=== PATIENT | female | born 1955 | race Caucasian/White ===

== ENCOUNTER → 2017-11-13 14:49 | Outpatient (REF) | payer MEDICARE, SELFPAY ==
[2017-11-13 17:43] LABS: Basophils # 0.1 K/mm3 (0-0.2); Basophils % 0.8 % (0.1-2.0); Eosinophils # 0.4 K/mm3 (0.0-0.4); Eosinophils % 4.3 % (0.1-12.0); Hematocrit 47.8 % (37.0-47.0); Hemoglobin 15.2 g/dL (12.2-16.2); Lymphocytes # 3.5 K/mm3 (0.7-4.5); Lymphocytes % 34.2 K/mm3 (10-50); Mean Corpuscular HGB Conc 31.9 g/dL (31.8-35.4); Mean Corpuscular Volume 87.8 fl (81-99); Mean Platelet Volume 11.1 fl (7.4-10.4); Monocytes # 0.6 K/mm3 (0.1-1.0); Monocytes % 5.4 % (1.7-9.3); Neutrophils # 5.6 K/mm3 (1.8-7.8); Neutrophils % 55.3 % (37.0-80.0); Platelet Count 207 K/mm3 (142-424); Red Blood Count 5.44 M/mm3 (4.20-5.40); Red Cell Distribution Width 13.6 % (11.5-17.5); White Blood Count 10.2 K/mm3 (4.8-10.8)
[2017-11-13 18:06] LABS: Alanine Aminotransferase 27 U/L (12-78); Albumin Level 4.4 gm/dL (3.4-5.0); Albumin/Globulin Ratio 1.4 (1.1-1.8); Alkaline Phosphatase 77 U/L (46-116); Anion Gap 12.9 mEq/L (5-15); Aspartate Amino Transferase 22 U/L (15-37); Bilirubin,Total 0.4 mg/dL (0.2-1.0); Blood Urea Nitrogen 15 mg/dL (7-18); Calcium 9.5 mg/dL (8.5-10.1); Carbon Dioxide 29 mmol/L (21.0-32.0); Chloride 103 mmol/L (98-107); Creatinine,Serum 0.79 mg/dL (0.55-1.02); Estimated Glomerular Filt Rate 74 ml/min (>60); GFR (African American) 89 ML/MIN (>60); Globulin 3.1 gm/dl (1.3-3.2); Glucose 78 mg/dL (74-106); Potassium 4.9 mmoL/L (3.5-5.1); Sodium 140 mmol/L (136-145); Total Protein,Serum 7.5 gm/dL (6.4-8.2)
[2017-11-13 19:27] LABS: Amphetamine/Metha Screen,Urine Negative ng/mL (<1000); Barbiturates Screen,Urine Negative ng/mL (<200); Benzodiazepines Screen,Urine Negative ng/mL (200); Cannabinoid Screen,Urine Negative ng/mL (<50); Cocaine Screen,Urine Negative ng/g (<300); Methadone Screen,Urine Negative ng/mL (<300); Opiate Screen,Urine Positive ng/mL (<300); Phencyclidine Screen,Urine Negative ng/mL (<25)
[2017-11-15 15:08] LABS: Hep A Ab, IgM Negative (Negative); Hepatitis B Core Antibody IgM Negative (Negative); Hepatitis B Surface Antigen Negative (Negative)
[2017-11-15 18:29] LABS: Hepatitis C Antibody 0.1 s/co ratio (0.0-0.9)
== END ==
LOC: LAB 14:49
PROVIDERS: Visit Provider Emergency Medicine
DX: Z79.899 Other long term (current) drug therapy (principal); M54.9 Dorsalgia, unspecified; R53.83 Other fatigue
CPT/HCPCS: 80053; 80074; 80305; 85025

== ENCOUNTER → 2017-12-15 15:10 | Outpatient (REF) | payer MEDICARE, SELFPAY ==
[2017-12-15 21:07] LABS: Amphetamine/Metha Screen,Urine Negative ng/mL (<1000); Barbiturates Screen,Urine Negative ng/mL (<200); Benzodiazepines Screen,Urine Negative ng/mL (200); Cannabinoid Screen,Urine Negative ng/mL (<50); Cocaine Screen,Urine Negative ng/g (<300); Methadone Screen,Urine Negative ng/mL (<300); Opiate Screen,Urine Positive ng/mL (<300); Phencyclidine Screen,Urine Negative ng/mL (<25)
== END ==
LOC: LAB 15:10
PROVIDERS: Visit Provider Emergency Medicine
DX: Z79.899 Other long term (current) drug therapy (principal)
CPT/HCPCS: 80305

== ENCOUNTER → 2018-01-13 15:38 | Outpatient (CLI) | payer MEDICARE, SELFPAY ==
[2018-01-13 19:55] LABS: Amphetamine/Metha Screen,Urine Negative ng/mL (<1000); Barbiturates Screen,Urine Negative ng/mL (<200); Benzodiazepines Screen,Urine Negative ng/mL (200); Cannabinoid Screen,Urine Negative ng/mL (<50); Cocaine Screen,Urine Negative ng/g (<300); Methadone Screen,Urine Negative ng/mL (<300); Opiate Screen,Urine Positive ng/mL (<300); Phencyclidine Screen,Urine Negative ng/mL (<25)
== END ==
PROVIDERS: Visit Provider Emergency Medicine
DX: Z79.899 Other long term (current) drug therapy (principal)
CPT/HCPCS: 80305

== ENCOUNTER → 2018-02-10 15:28 | Outpatient (REF) | payer MEDICARE, SELFPAY ==
[2018-02-10 20:09] LABS: Amphetamine/Metha Screen,Urine Negative ng/mL (<1000); Barbiturates Screen,Urine Negative ng/mL (<200); Benzodiazepines Screen,Urine Negative ng/mL (200); Cannabinoid Screen,Urine Negative ng/mL (<50); Cocaine Screen,Urine Negative ng/g (<300); Methadone Screen,Urine Negative ng/mL (<300); Opiate Screen,Urine Positive ng/mL (<300); Phencyclidine Screen,Urine Negative ng/mL (<25)
== END ==
LOC: LAB 15:28
PROVIDERS: Visit Provider Emergency Medicine
DX: Z79.899 Other long term (current) drug therapy (principal)
CPT/HCPCS: 80305

== ENCOUNTER → 2018-03-17 13:50 | Outpatient (REF) | payer MEDICARE, MEDICAID, SELFPAY ==
[2018-03-17 14:54] LABS: Amphetamine/Metha Screen,Urine Negative ng/mL (<1000); Barbiturates Screen,Urine Negative ng/mL (<200); Benzodiazepines Screen,Urine Negative ng/mL (200); Cannabinoid Screen,Urine Negative ng/mL (<50); Cocaine Screen,Urine Negative ng/g (<300); Methadone Screen,Urine Negative ng/mL (<300); Opiate Screen,Urine Positive ng/mL (<300); Phencyclidine Screen,Urine Negative ng/mL (<25)
== END ==
LOC: LAB 13:50
PROVIDERS: Visit Provider Emergency Medicine
DX: Z79.899 Other long term (current) drug therapy (principal)
CPT/HCPCS: 80305

== ENCOUNTER → 2018-04-14 13:32 | Outpatient (REF) | payer MEDICARE, MEDICAID, SELFPAY ==
[2018-04-14 16:22] LABS: Amphetamine/Metha Screen,Urine Negative ng/mL (<1000); Barbiturates Screen,Urine Negative ng/mL (<200); Benzodiazepines Screen,Urine Negative ng/mL (200); Cannabinoid Screen,Urine Negative ng/mL (<50); Cocaine Screen,Urine Negative ng/g (<300); Methadone Screen,Urine Negative ng/mL (<300); Opiate Screen,Urine Positive ng/mL (<300); Phencyclidine Screen,Urine Negative ng/mL (<25)
== END ==
LOC: LAB 13:32
PROVIDERS: Visit Provider Emergency Medicine
DX: Z79.899 Other long term (current) drug therapy (principal)
CPT/HCPCS: 80305

== ENCOUNTER → 2018-05-14 08:25 | Outpatient (REF) | payer MEDICARE, MEDICAID, SELFPAY ==
[2018-05-14 14:15] LABS: Amphetamine/Metha Screen,Urine Negative ng/mL (<1000); Barbiturates Screen,Urine Negative ng/mL (<200); Benzodiazepines Screen,Urine Negative ng/mL (<200); Cannabinoid Screen,Urine Negative ng/mL (<50); Cocaine Screen,Urine Negative ng/mL (<300); Methadone Screen,Urine Negative ng/mL (<300); Opiate Screen,Urine Positive ng/mL (<300); Phencyclidine Screen,Urine Negative ng/mL (<25)
== END ==
LOC: LAB 08:25
PROVIDERS: Visit Provider Emergency Medicine
DX: Z79.899 Other long term (current) drug therapy (principal)
CPT/HCPCS: 80305

== ENCOUNTER → 2018-06-16 13:05 | Outpatient (REF) | payer MEDICARE, MEDICAID, SELFPAY ==
[2018-06-16 18:50] LABS: Basophils # 0.1 K/mm3 (0-0.2); Basophils % 0.6 % (0.1-2.0); Eosinophils # 0.3 K/mm3 (0.0-0.4); Eosinophils % 3.8 % (0.1-12.0); Hematocrit 49.6 % (37.0-47.0); Lymphocytes # 2.1 K/mm3 (0.7-4.5); Lymphocytes % 24.4 K/mm3 (10-50); Mean Corpuscular HGB Conc 32.3 g/dL (31.8-35.4); Mean Corpuscular Hemoglobin 28.8 pg (27.0-31.2); Mean Corpuscular Volume 89.3 fl (81-99); Mean Platelet Volume 11.4 fl (7.4-10.4); Monocytes # 0.5 K/mm3 (0.1-1.0); Monocytes % 5.3 % (1.7-9.3); Neutrophils # 5.8 K/mm3 (1.8-7.8); Neutrophils % 65.9 % (37.0-80.0); Platelet Count 181 K/mm3 (142-424); Red Blood Count 5.55 M/mm3 (4.20-5.40); Red Cell Distribution Width 14.1 % (11.5-17.5); White Blood Count 8.8 K/mm3 (4.8-10.8)
[2018-06-16 19:06] LABS: Alanine Aminotransferase 181 U/L (12-78); Albumin Level 3.6 gm/dL (3.4-5.0); Alkaline Phosphatase 135 U/L (46-116); Anion Gap 12.2 mEq/L (5-15); Aspartate Amino Transferase 166 U/L (15-37); Bilirubin,Total 0.8 mg/dL (0.2-1.0); Blood Urea Nitrogen 9 mg/dL (7-18); Calcium 9.5 mg/dL (8.5-10.1); Carbon Dioxide 31 mmol/L (21.0-32.0); Chloride 105 mmol/L (98-107); Chol/HDL Ratio 4.7 (1-3.5); Cholesterol 182 mg/dL (140-200); Creatinine,Serum 0.75 mg/dL (0.55-1.02); Estimated Glomerular Filt Rate 78 ml/min (>60); Free T4 (Free Thyroxine) 1.48 ng/dl (0.76-1.46); GFR (African American) 94 ML/MIN (>60); Globulin 3.5 gm/dl (1.3-3.2); Glucose 105 mg/dL (74-106); HDL Cholesterol 39 mg/dL (29-89); LDL Cholesterol 111 mg/dL (0-130); Potassium 4.2 mmoL/L (3.5-5.1); Sodium 144 mmol/L (136-145); Thyroid Stimulating Hormone 2.12 uIU/ml (0.358-3.740); Total Protein,Serum 7.1 gm/dL (6.4-8.2); Triglycerides 161 mg/dL (30-200); VLDL Cholesterol 32 mg/dL (0-40)
[2018-06-16 19:07] LABS: Amphetamine/Metha Screen,Urine Negative ng/mL (<1000); Barbiturates Screen,Urine Negative ng/mL (<200); Benzodiazepines Screen,Urine Negative ng/mL (<200); Cannabinoid Screen,Urine Negative ng/mL (<50); Cocaine Screen,Urine Negative ng/mL (<300); Methadone Screen,Urine Negative ng/mL (<300); Opiate Screen,Urine Positive ng/mL (<300); Phencyclidine Screen,Urine Negative ng/mL (<25)
[2018-06-16 23:20] LABS: Erythrocyte Sedimentation Rate 5 mm/hr (0-30)
== END ==
LOC: LAB 13:05
PROVIDERS: Visit Provider Emergency Medicine
DX: Z79.899 Other long term (current) drug therapy (principal); R06.00 Dyspnea, unspecified; M54.9 Dorsalgia, unspecified
CPT/HCPCS: 80053; 80061; 80305; 84439; 84443; 85025; 85651

== ENCOUNTER → 2018-06-30 15:04 | Outpatient (CLI) | payer MEDICARE, MEDICAID, SELFPAY ==
[2018-06-30 19:23] LABS: Alanine Aminotransferase 162 U/L (12-78); Albumin Level 3.3 gm/dL (3.4-5.0); Alkaline Phosphatase 146 U/L (46-116); Aspartate Amino Transferase 161 U/L (15-37); Bilirubin,Direct 0.2 mg/dL (0.0-0.2); Bilirubin,Indirect 0.1 mg/dL (0.0-0.9); Bilirubin,Total 0.3 mg/dL (0.2-1.0); Total Protein,Serum 6.7 gm/dL (6.4-8.2)
[2018-07-01 20:07] LABS: Amphetamine/Metha Screen,Urine Negative ng/mL (<1000); Barbiturates Screen,Urine Negative ng/mL (<200); Benzodiazepines Screen,Urine Negative ng/mL (<200); Cannabinoid Screen,Urine Negative ng/mL (<50); Cocaine Screen,Urine Negative ng/mL (<300); Methadone Screen,Urine Negative ng/mL (<300); Opiate Screen,Urine Positive ng/mL (<300); Phencyclidine Screen,Urine Negative ng/mL (<25)
[2018-07-02 12:18] LABS: Hep A Ab, IgM Negative (Negative); Hepatitis B Core Antibody IgM Negative (Negative); Hepatitis B Surface Antigen Negative (Negative)
[2018-07-05 05:19] LABS: Hepatitis C Antibody >11.0 s/co ratio (0.0-0.9)
== END ==
PROVIDERS: Visit Provider Emergency Medicine
DX: R74.8 Abnormal levels of other serum enzymes (principal); R53.83 Other fatigue; Z79.899 Other long term (current) drug therapy
CPT/HCPCS: 80074; 80076; 80305

== ENCOUNTER → 2018-07-01 12:59 | Outpatient (CLI) | payer MEDICARE, MEDICAID, SELFPAY ==
--- NOTE | 2018-07-01 13:03 | MR_ITS ---
MR lumbar spine wo con, MR 3-d myelogram/MRCP HISTORY: Low back pain X years. Bilateral leg pain, numbness and tingling. ITS.REASON: back pain ORDERING PHYSICIAN: Ronald Gr MD PATIENT AGE: 62 years Comparison: MRI 01/18/16 TECHNIQUE: Standard multiplanar multiecho sequences are performed without contrast. 3-D MIP and myelographic images are also rendered and reviewed FINDINGS: There is normal alignment. The spinal cord ends at the L1-L2 level. T11-T12: Facet hypertrophic changes present on the right causing right lateral recess narrowing which is abutting but not impinging upon the cord on the right. T12-L1: Unremarkable. L1-L2: Unremarkable. L2-L3: Mild facet and ligamentum hypertrophy with mild lateral recess narrowing. L3-L4: Mild facet and ligamentum hypertrophy. Minimal foraminal and lateral disc bulge as before with mild right foraminal narrowing L4-L5: Bulging disc with mild facet and ligamentum hypertrophy with mild bilateral foraminal narrowing. There is mild narrowing of the canal L5-S1: Degenerative disc disease with bulging disc with a small broad-based central left paracentral disc protrusion which is abutting the left S1 nerve root. There is moderate right foraminal narrowing and moderate to severe left foraminal narrowing. There is borderline canal stenosis at 11 mm. An annular fissure is present in the left paracentral region of the disc. There is a small right renal cyst 14 mm. IMPRESSION: 1. Mild lumbar spondylosis as detailed above. Please see above for detailed description at each level. 2. Degenerative disc disease at L5-S1 with bulging disc with a small broad-based central left paracentral disc protrusion which is abutting the left S1 nerve root. There is moderate right foraminal narrowing and moderate to severe left foraminal narrowing. There is borderline canal stenosis at 11 mm. An annular fissure is present in the left paracentral region of the disc 3. Overall no significant change compared to the previous exam
== END ==
PROVIDERS: PCP Emergency Medicine; Visit Provider Emergency Medicine
DX: M54.9 Dorsalgia, unspecified (principal); M54.5 Low back pain
CPT/HCPCS: 72148; 76376

== ENCOUNTER → 2018-07-13 13:58 | Outpatient (REF) | payer MEDICARE, MEDICAID, SELFPAY ==
[2018-07-13 19:21] LABS: Amphetamine/Metha Screen,Urine Negative ng/mL (<1000); Barbiturates Screen,Urine Negative ng/mL (<200); Benzodiazepines Screen,Urine Negative ng/mL (<200); Cannabinoid Screen,Urine Negative ng/mL (<50); Cocaine Screen,Urine Negative ng/mL (<300); Methadone Screen,Urine Negative ng/mL (<300); Opiate Screen,Urine Positive ng/mL (<300); Phencyclidine Screen,Urine Negative ng/mL (<25)
[2018-07-16 12:34] LABS: HIV Screen 4th Generation wRfx Non Reactive (Non Reactive)
[2018-07-19 21:09] LABS: HCV Genotype Charge YES; Hepatitis C Genotype 1a (.)
== END ==
LOC: LAB 13:58
PROVIDERS: Visit Provider Emergency Medicine
DX: Z79.899 Other long term (current) drug therapy (principal); R76.8 Other specified abnormal immunological findings in serum; Z20.5 Contact with and (suspected) exposure to viral hepatitis; Z11.4 Encounter for screening for human immunodeficiency virus [HIV]
CPT/HCPCS: 80305; 86703; 87522; 87902; G0432

== ENCOUNTER → 2018-07-14 10:33 | Outpatient (CLI) | payer MEDICARE, MEDICAID, SELFPAY | PROVIDERS: Visit Provider Emergency Medicine | DX: Z20.5 Contact with and (suspected) exposure to viral hepatitis (principal) ==

== ENCOUNTER → 2018-08-02 15:10 | Outpatient (REF) | payer MEDICARE, MEDICAID, SELFPAY ==
[2018-08-02 19:31] LABS: Amphetamine/Metha Screen,Urine Negative ng/mL (<1000); Barbiturates Screen,Urine Negative ng/mL (<200); Benzodiazepines Screen,Urine Negative ng/mL (<200); Cannabinoid Screen,Urine Negative ng/mL (<50); Cocaine Screen,Urine Negative ng/mL (<300); Methadone Screen,Urine Negative ng/mL (<300); Opiate Screen,Urine Positive ng/mL (<300); Phencyclidine Screen,Urine Negative ng/mL (<25)
== END ==
LOC: LAB 15:10
PROVIDERS: Visit Provider Emergency Medicine
DX: Z79.899 Other long term (current) drug therapy (principal)
CPT/HCPCS: 80305

== ENCOUNTER → 2018-08-06 14:45 | Outpatient (CLI) | payer MEDICARE, MEDICAID, SELFPAY ==
[2018-08-06 15:17] LABS: INR 0.97 (0.9-1.1)
[2018-08-06 16:33] LABS: Basophils # 0.1 K/mm3 (0-0.2); Basophils % 0.9 % (0.1-2.0); Eosinophils # 0.4 K/mm3 (0.0-0.4); Eosinophils % 4.3 % (0.1-12.0); Hematocrit 48.3 % (37.0-47.0); Hemoglobin 15.2 g/dL (12.2-16.2); Lymphocytes # 2.5 K/mm3 (0.7-4.5); Mean Corpuscular HGB Conc 31.5 g/dL (31.8-35.4); Mean Corpuscular Hemoglobin 28.7 pg (27.0-31.2); Mean Platelet Volume 10.3 fl (7.4-10.4); Monocytes # 0.5 K/mm3 (0.1-1.0); Monocytes % 5.9 % (1.7-9.3); Neutrophils # 4.9 K/mm3 (1.8-7.8); Platelet Count 199 K/mm3 (142-424); Red Blood Count 5.31 M/mm3 (4.20-5.40); Red Cell Distribution Width 15.2 % (11.5-17.5); White Blood Count 8.3 K/mm3 (4.8-10.8)
== END ==
PROVIDERS: PCP Emergency Medicine; Visit Provider Emergency Medicine
DX: B19.20 Unspecified viral hepatitis C without hepatic coma (principal)
CPT/HCPCS: 36415; 85025; 85610

== ENCOUNTER → 2018-08-31 08:37 | Outpatient (CLI) | payer MEDICARE, MEDICAID, SELFPAY ==
[2018-09-01 12:56] LABS: Amphetamine/Metha Screen,Urine Negative ng/mL (<1000); Barbiturates Screen,Urine Negative ng/mL (<200); Benzodiazepines Screen,Urine Negative ng/mL (<200); Cannabinoid Screen,Urine Negative ng/mL (<50); Cocaine Screen,Urine Negative ng/mL (<300); Methadone Screen,Urine Negative ng/mL (<300); Opiate Screen,Urine Positive ng/mL (<300); Phencyclidine Screen,Urine Negative ng/mL (<25)
== END ==
PROVIDERS: Visit Provider Emergency Medicine
DX: Z79.899 Other long term (current) drug therapy (principal)
CPT/HCPCS: 80305

== ENCOUNTER → 2018-10-05 17:48 | Outpatient (CLI) | payer MEDICARE, MEDICAID, SELFPAY ==
[2018-10-05 21:46] LABS: Amphetamine/Metha Screen,Urine Negative ng/mL (<1000); Barbiturates Screen,Urine Negative ng/mL (<200); Benzodiazepines Screen,Urine Negative ng/mL (<200); Cannabinoid Screen,Urine Negative ng/mL (<50); Cocaine Screen,Urine Negative ng/mL (<300); Methadone Screen,Urine Negative ng/mL (<300); Opiate Screen,Urine Positive ng/mL (<300); Phencyclidine Screen,Urine Negative ng/mL (<25)
[2018-10-12 09:08] LABS: Alprazolam Negative (Cutoff=100); Benzodiazepines Negative ng/mL (Cutoff=100); Clonazepam Negative (Cutoff=100); Flurazepam Negative (Cutoff=100); Lorazepam Negative (Cutoff=100); Midazolam Negative (Cutoff=100); Temazepam Negative (Cutoff=100); Triazolam Negative (Cutoff=100)
== END ==
PROVIDERS: Visit Provider Emergency Medicine
DX: Z79.899 Other long term (current) drug therapy (principal)
CPT/HCPCS: 80305; 80346

== ENCOUNTER → 2018-11-05 17:43 | Outpatient (CLI) | payer MEDICARE, MEDICAID, SELFPAY ==
[2018-11-05 19:57] LABS: Amphetamine/Metha Screen,Urine Negative ng/mL (<1000); Barbiturates Screen,Urine Negative ng/mL (<200); Benzodiazepines Screen,Urine Negative ng/mL (<200); Cannabinoid Screen,Urine Negative ng/mL (<50); Cocaine Screen,Urine Negative ng/mL (<300); Methadone Screen,Urine Negative ng/mL (<300); Opiate Screen,Urine Positive ng/mL (<300); Phencyclidine Screen,Urine Negative ng/mL (<25)
== END ==
PROVIDERS: Visit Provider Emergency Medicine
DX: Z79.899 Other long term (current) drug therapy (principal)
CPT/HCPCS: 80305

== ENCOUNTER → 2018-12-31 19:05 | Outpatient (CLI) | payer MEDICARE, MEDICAID, SELFPAY | PROVIDERS: Visit Provider Emergency Medicine | DX: B19.20 Unspecified viral hepatitis C without hepatic coma (principal) | CPT/HCPCS: 87522 ==

== ENCOUNTER → 2019-01-11 18:06 | Outpatient (CLI) | payer MEDICARE, MEDICAID, SELFPAY ==
[2019-01-11 19:33] LABS: Amphetamine/Metha Screen,Urine Negative ng/mL (<1000); Barbiturates Screen,Urine Negative ng/mL (<200); Benzodiazepines Screen,Urine Negative ng/mL (<200); Cannabinoid Screen,Urine Positive ng/mL (<50); Cocaine Screen,Urine Negative ng/mL (<300); Methadone Screen,Urine Negative ng/mL (<300); Opiate Screen,Urine Positive ng/mL (<300); Phencyclidine Screen,Urine Negative ng/mL (<25)
[2019-01-13 13:01] LABS: Hepatitis C Antibody >11.0 s/co ratio (0.0-0.9)
== END ==
PROVIDERS: Visit Provider Emergency Medicine
DX: B19.20 Unspecified viral hepatitis C without hepatic coma (principal); R42 Dizziness and giddiness; Z79.899 Other long term (current) drug therapy
CPT/HCPCS: 80305; 87380; 87522

== ENCOUNTER → 2019-02-14 14:06 | Outpatient (CLI) | payer MEDICARE, MEDICAID, SELFPAY ==
[2019-02-14 14:31] LABS: Basophils # 0.1 K/mm3 (0-0.2); Basophils % 0.7 % (0.1-2.0); Eosinophils # 0.4 K/mm3 (0.0-0.4); Eosinophils % 4.3 % (0.1-12.0); Hematocrit 49.2 % (37.0-47.0); Hemoglobin 16.4 g/dL (12.2-16.2); Lymphocytes # 3.2 K/mm3 (0.7-4.5); Lymphocytes % 31.7 % (10-50); Mean Corpuscular HGB Conc 33.2 g/dL (31.8-35.4); Mean Corpuscular Hemoglobin 29.8 pg (27.0-31.2); Mean Corpuscular Volume 89.6 fl (81-99); Mean Platelet Volume 9.4 fl (7.4-10.4); Monocytes # 0.6 K/mm3 (0.1-1.0); Monocytes % 5.5 % (1.7-9.3); Neutrophils # 5.7 K/mm3 (1.8-7.8); Neutrophils % 57.7 % (37.0-80.0); Platelet Count 191 K/mm3 (142-424); Red Blood Count 5.49 M/mm3 (4.20-5.40); Red Cell Distribution Width 13.5 % (11.5-17.5); White Blood Count 9.9 K/mm3 (4.8-10.8)
[2019-02-14 14:36] LABS: INR 1.06 (0.9-1.1); Prothrombin Time 10.9 seconds (9.4-11.8)
[2019-02-14 15:05] LABS: Alanine Aminotransferase 98 U/L (12-78); Albumin Level 3.8 gm/dL (3.4-5.0); Alkaline Phosphatase 130 U/L (46-116); Anion Gap 14.3 mEq/L (5-15); Aspartate Amino Transferase 114 U/L (15-37); Bilirubin,Total 0.6 mg/dL (0.2-1.0); Blood Urea Nitrogen 12 mg/dL (7-18); Calcium 9.3 mg/dL (8.5-10.1); Carbon Dioxide 27 mmol/L (21.0-32.0); Chloride 100 mmol/L (98-107); Creatinine,Serum 0.87 mg/dL (0.55-1.02); Estimated Glomerular Filt Rate 66 ml/min (>60); GFR (African American) 79 ML/MIN (>60); Glucose 83 mg/dL (74-106); Potassium 4.3 mmoL/L (3.5-5.1); Sodium 137 mmol/L (136-145); Total Protein,Serum 7.8 gm/dL (6.4-8.2)
[2019-02-14 18:01] LABS: Amphetamine/Metha Screen,Urine Negative ng/mL (<1000); Barbiturates Screen,Urine Negative ng/mL (<200); Benzodiazepines Screen,Urine Negative ng/mL (<200); Cannabinoid Screen,Urine Positive ng/mL (<50); Cocaine Screen,Urine Negative ng/mL (<300); Methadone Screen,Urine Negative ng/mL (<300); Opiate Screen,Urine Negative ng/mL (<300); Phencyclidine Screen,Urine Negative ng/mL (<25)
[2019-02-22 06:07] LABS: Opiates Negative (Cutoff=100)
== END ==
PROVIDERS: Visit Provider Emergency Medicine
DX: B19.20 Unspecified viral hepatitis C without hepatic coma (principal); M54.9 Dorsalgia, unspecified
CPT/HCPCS: 36415; 80053; 80305; 80361; 80365; 85025; 85610; G0480

== ENCOUNTER → 2019-02-14 17:23 | Outpatient (CLI) | payer MEDICARE, MEDICAID, SELFPAY | PROVIDERS: Visit Provider Emergency Medicine | DX: B19.20 Unspecified viral hepatitis C without hepatic coma (principal) | CPT/HCPCS: 36415; 80053; 80305; 80361; 80365; 85025; 85610; G0480 ==

== ENCOUNTER → 2019-04-15 16:39 | Outpatient (CLI) | payer SELFPAY ==
[2019-04-15 18:05] LABS: Amphetamine/Metha Screen,Urine Negative ng/mL (<1000); Barbiturates Screen,Urine Negative ng/mL (<200); Benzodiazepines Screen,Urine Negative ng/mL (<200); Cannabinoid Screen,Urine Positive ng/mL (<50); Cocaine Screen,Urine Negative ng/mL (<300); Methadone Screen,Urine Negative ng/mL (<300); Opiate Screen,Urine Positive ng/mL (<300); Phencyclidine Screen,Urine Negative ng/mL (<25)
== END ==
PROVIDERS: Visit Provider Emergency Medicine
DX: Z79.899 Other long term (current) drug therapy (principal)
CPT/HCPCS: 80305

== ENCOUNTER → 2019-06-10 14:41 | Outpatient (CLI) | payer MEDICARE, MEDICAID, SELFPAY ==
[2019-06-10 14:59] LABS: Basophils # 0.1 K/mm3 (0-0.2); Basophils % 1.2 % (0.1-2.0); Eosinophils # 0.5 K/mm3 (0.0-0.4); Eosinophils % 5.4 % (0.1-12.0); Hematocrit 52.7 % (37.0-47.0); Hemoglobin 16.9 g/dL (12.2-16.2); Lymphocytes % 33.7 % (10-50); Mean Corpuscular Hemoglobin 29.7 pg (27.0-31.2); Mean Corpuscular Volume 92.6 fl (81-99); Mean Platelet Volume 9.3 fl (7.4-10.4); Monocytes # 0.4 K/mm3 (0.1-1.0); Monocytes % 4.7 % (1.7-9.3); Neutrophils # 4.8 K/mm3 (1.8-7.8); Neutrophils % 55.1 % (37.0-80.0); Platelet Count 193 K/mm3 (142-424); Red Blood Count 5.69 M/mm3 (4.20-5.40); Red Cell Distribution Width 13.7 % (11.5-17.5); White Blood Count 8.8 K/mm3 (4.8-10.8)
[2019-06-10 15:13] LABS: INR 1.07 (0.9-1.1); Prothrombin Time 11.1 seconds (9.4-11.8)
[2019-06-10 16:29] LABS: Alanine Aminotransferase 118 U/L (12-78); Albumin Level 4.1 gm/dL (3.4-5.0); Alkaline Phosphatase 126 U/L (46-116); Anion Gap 11.3 mEq/L (5-15); Aspartate Amino Transferase 113 U/L (15-37); Bilirubin,Total 0.6 mg/dL (0.2-1.0); Blood Urea Nitrogen 12 mg/dL (7-18); Calcium 9.9 mg/dL (8.5-10.1); Carbon Dioxide 31 mmol/L (21.0-32.0); Chloride 101 mmol/L (98-107); Creatinine,Serum 0.88 mg/dL (0.55-1.02); Estimated Glomerular Filt Rate 65 ml/min (>60); GFR (African American) 78 ML/MIN (>60); Glucose 91 mg/dL (74-106); Potassium 4.3 mmoL/L (3.5-5.1); Sodium 139 mmol/L (136-145); Total Protein,Serum 8.1 gm/dL (6.4-8.2)
[2019-06-10 18:35] LABS: Amphetamine/Metha Screen,Urine Negative ng/mL (<1000); Barbiturates Screen,Urine Negative ng/mL (<200); Benzodiazepines Screen,Urine Negative ng/mL (<200); Cannabinoid Screen,Urine Positive ng/mL (<50); Cocaine Screen,Urine Negative ng/mL (<300); Methadone Screen,Urine Negative ng/mL (<300); Opiate Screen,Urine Positive ng/mL (<300); Phencyclidine Screen,Urine Negative ng/mL (<25)
[2019-06-15 21:07] LABS: HCV Genotype Charge YES; Hepatitis C Genotype 1a (.)
== END ==
PROVIDERS: Visit Provider Emergency Medicine
DX: B19.20 Unspecified viral hepatitis C without hepatic coma (principal); J44.9 Chronic obstructive pulmonary disease, unspecified; M51.16 Intervertebral disc disorders with radiculopathy, lumbar region
CPT/HCPCS: 36415; 80053; 80305; 85025; 85610; 87522; 87902

== ENCOUNTER → 2019-08-05 15:03 | Outpatient (CLI) | payer MEDICARE, MEDICAID, SELFPAY ==
[2019-08-05 15:49] LABS: INR 1.07 (0.9-1.1); Prothrombin Time 11.1 seconds (9.4-11.8)
[2019-08-05 16:04] LABS: Basophils # 0.1 K/mm3 (0-0.2); Basophils % 0.8 % (0.1-2.0); Eosinophils # 0.3 K/mm3 (0.0-0.4); Hematocrit 52.7 % (37.0-47.0); Hemoglobin 16.5 g/dL (12.2-16.2); Lymphocytes % 27.9 % (10-50); Mean Corpuscular HGB Conc 31.2 g/dL (31.8-35.4); Mean Corpuscular Hemoglobin 29.3 pg (27.0-31.2); Mean Corpuscular Volume 93.9 fl (81-99); Monocytes # 0.4 K/mm3 (0.1-1.0); Monocytes % 3.9 % (1.7-9.3); Neutrophils # 6.9 K/mm3 (1.8-7.8); Neutrophils % 64.5 % (37.0-80.0); Platelet Count 202 K/mm3 (142-424); Red Blood Count 5.61 M/mm3 (4.20-5.40); Red Cell Distribution Width 13.7 % (11.5-17.5); White Blood Count 10.7 K/mm3 (4.8-10.8)
[2019-08-05 17:23] LABS: Alanine Aminotransferase 82 U/L (12-78); Albumin Level 3.9 gm/dL (3.4-5.0); Alkaline Phosphatase 122 U/L (46-116); Anion Gap 14.2 mEq/L (5-15); Aspartate Amino Transferase 82 U/L (15-37); Bilirubin,Total 0.7 mg/dL (0.2-1.0); Blood Urea Nitrogen 12 mg/dL (7-18); Calcium 9.7 mg/dL (8.5-10.1); Carbon Dioxide 30 mmol/L (21.0-32.0); Chloride 101 mmol/L (98-107); Creatinine,Serum 0.77 mg/dL (0.55-1.02); Estimated Glomerular Filt Rate 75 ml/min (>60); GFR (African American) 91 ML/MIN (>60); Glucose 100 mg/dL (74-106); Potassium 4.2 mmoL/L (3.5-5.1); Sodium 141 mmol/L (136-145); Total Protein,Serum 7.9 gm/dL (6.4-8.2)
[2019-08-05 18:17] LABS: Amphetamine/Metha Screen,Urine Negative ng/mL (<1000); Barbiturates Screen,Urine Negative ng/mL (<200); Benzodiazepines Screen,Urine Negative ng/mL (<200); Cannabinoid Screen,Urine Positive ng/mL (<50); Cocaine Screen,Urine Negative ng/mL (<300); Methadone Screen,Urine Negative ng/mL (<300); Opiate Screen,Urine Positive ng/mL (<300); Phencyclidine Screen,Urine Negative ng/mL (<25)
[2019-08-07 18:15] LABS: Hep A Ab, IgM Negative (Negative); Hep A Ab, Total Negative (Negative); Hep B Core Ab, Total Negative (Negative)
[2019-08-08 07:23] LABS: HIV Screen 4th Generation wRfx Non Reactive (Non Reactive); Hep B Surface Ab, Qual Reactive (.); Hepatitis C Antibody >11.0 s/co ratio (0.0-0.9)
[2019-08-09 23:07] LABS: HCV Genotype Charge YES; Hepatitis C Genotype 1a (.)
== END ==
PROVIDERS: PCP Emergency Medicine; Referring Provider Podiatrist; Visit Provider Emergency Medicine
DX: B19.20 Unspecified viral hepatitis C without hepatic coma (principal); M51.16 Intervertebral disc disorders with radiculopathy, lumbar region; Z20.828 Contact with and (suspected) exposure to other viral communicable diseases; Z11.4 Encounter for screening for human immunodeficiency virus [HIV]
CPT/HCPCS: 36415; 80053; 80305; 85025; 85610; 86703; 86704; 86706; 86708; 87380; 87522; 87902; G0432

== ENCOUNTER → 2019-08-15 16:12 | Outpatient (CLI) | payer MEDICARE, MEDICAID, SELFPAY ==
--- NOTE | 2019-08-15 16:19 | XR_ITS ---
PROCEDURE: XR FOOT WT BEARING LT 3V CLINICAL INDICATION: bilateral foor/ankle pain Posttraumatic pain COMPARISON: FTR3 FOOT-RT-3 VIEWS from 04/16/2017 FTL3 FOOT-LT-3 VIEWS from 04/16/2017 FINDINGS: Flexion deformity involves the 2nd 3rd and 4th toes. There is a small metallic foreign body along the plantar surface at the mid aspect of the 5th metatarsal within the soft tissue similar to the previous exam. Mild pes planus. No acute fracture or dislocation. IMPRESSION: No acute findings. Dictated by: Aubrey Barrientos MD 08/15/2019 19:22 Electronically signed by Aubrey Barrientos MD in [place] 08/15/2019 19:22
--- NOTE | 2019-08-15 16:19 | XR_ITS ---
PROCEDURE: XR ANKLE WT BEARING LT MIN 3V CLINICAL INDICATION: bilateral foor/ankle pain Jyoti kitchen of [place] the notion been sleeper presents of in-home in inner 3 times COMPARISON: FTL3 FOOT-LT-3 VIEWS from 04/16/2017 FINDINGS: There is a small well-circumscribed calcific density at the tip of the medial malleolus and may be due to an old injury. No acute fracture or dislocation evident. No significant arthritic change IMPRESSION: No acute finding Dictated by: Aubrey Barrientos MD 08/15/2019 19:30 Electronically signed by Aubrey Barrientos MD in [place] 08/15/2019 19:30
--- NOTE | 2019-08-15 16:19 | XR_ITS ---
PROCEDURE: XR FOOT WT BEARING RT 3V CLINICAL INDICATION: bilateral foor/ankle pain Bilateral foot and ankle pain COMPARISON: FTR3 FOOT-RT-3 VIEWS from 04/16/2017 FTL3 FOOT-LT-3 VIEWS from 04/16/2017 FINDINGS: Pes planus. Flexion deformity involves the 2nd 3rd and 4th toes. No obvious fracture or dislocation. IMPRESSION: No acute findings. Dictated by: Aubrey Barrientos MD 08/15/2019 19:21 Electronically signed by uAbrey Barrientos MD in [place] 08/15/2019 19:21
--- NOTE | 2019-08-15 16:19 | XR_ITS ---
PROCEDURE: XR ANKLE WT BEARING RT MIN 3V CLINICAL INDICATION: bilateral foor/ankle pain COMPARISON: No exams were available for comparison FINDINGS: No fracture, dislocation, lytic change, or blastic change evident. No significant degenerative change IMPRESSION: No acute findings. Dictated by: Aubrey Barrientos MD 08/15/2019 19:21 Electronically signed by Aubrey Barrientos MD in [place] 08/15/2019 19:21
== END ==
PROVIDERS: PCP Emergency Medicine; Visit Provider Podiatrist
DX: M79.673 Pain in unspecified foot (principal)
CPT/HCPCS: 73610; 73630

== ENCOUNTER → 2019-08-16 09:43 | Outpatient (CLI) | payer MEDICARE, MEDICAID, SELFPAY ==
--- NOTE | 2019-08-16 09:46 | US_ITS ---
PROCEDURE: US LIVER CLINICAL INDICATION: r/o liver cancer Hepatitis-C Hepatitis-C COMPARISON: No exams were available for comparison FINDINGS: PANCREAS: Unremarkable. No obvious mass or abnormal fluid collection. No ductal dilatation LIVER: No focal liver lesions demonstrated. Homogeneous echogenicity. No intrahepatic biliary ductal dilatation evident. There is appropriate direction of blood flow within a non dilated portal vein RIGHT KIDNEY: Unremarkable. Normal size and echogenicity. No hydronephrosis GALLBLADDER: No gallstones, gallbladder wall thickening, pericholecystic fluid, or biliary dilatation. IMPRESSION: Unremarkable limited abdominal ultrasound as detailed above disc Dictated by: Aubrey Barrientos MD 08/16/2019 19:42 Electronically signed by Aubrey Barrientos MD in [place] 08/16/2019 19:42
== END ==
PROVIDERS: PCP Emergency Medicine; Visit Provider Emergency Medicine
DX: B19.20 Unspecified viral hepatitis C without hepatic coma (principal); M51.16 Intervertebral disc disorders with radiculopathy, lumbar region
CPT/HCPCS: 76705; 94060; 94618; 94726; 94729

== ENCOUNTER → 2019-09-12 14:52 | Outpatient (CLI) | payer MEDICARE, MEDICAID, SELFPAY ==
[2019-09-12 15:12] LABS: Basophils # 0.1 K/mm3 (0-0.2); Basophils % 0.8 % (0.1-2.0); Eosinophils # 0.5 K/mm3 (0.0-0.4); Eosinophils % 5.5 % (0.1-12.0); Hematocrit 52.5 % (37.0-47.0); Hemoglobin 16.6 g/dL (12.2-16.2); Lymphocytes % 29.8 % (10-50); Mean Corpuscular HGB Conc 31.6 g/dL (31.8-35.4); Mean Corpuscular Hemoglobin 29.9 pg (27.0-31.2); Mean Corpuscular Volume 94.4 fl (81-99); Mean Platelet Volume 10.7 fl (7.4-10.4); Monocytes # 0.4 K/mm3 (0.1-1.0); Monocytes % 4.4 % (1.7-9.3); Neutrophils # 5.9 K/mm3 (1.8-7.8); Neutrophils % 59.5 % (37.0-80.0); Platelet Count 176 K/mm3 (142-424); Red Blood Count 5.56 M/mm3 (4.20-5.40); Red Cell Distribution Width 13.2 % (11.5-17.5); White Blood Count 9.9 K/mm3 (4.8-10.8)
[2019-09-12 15:18] LABS: INR 1.06 (0.9-1.1)
[2019-09-12 15:51] LABS: Alanine Aminotransferase 81 U/L (12-78); Albumin Level 3.6 gm/dL (3.4-5.0); Alkaline Phosphatase 118 U/L (46-116); Anion Gap 11.2 mEq/L (5-15); Aspartate Amino Transferase 85 U/L (15-37); Bilirubin,Total 0.5 mg/dL (0.2-1.0); Blood Urea Nitrogen 11 mg/dL (7-18); Calcium 9.4 mg/dL (8.5-10.1); Carbon Dioxide 30 mmol/L (21.0-32.0); Chloride 102 mmol/L (98-107); Creatinine,Serum 0.76 mg/dL (0.55-1.02); Estimated Glomerular Filt Rate 77 ml/min (>60); GFR (African American) 93 ML/MIN (>60); Globulin 3.7 gm/dl (1.3-3.2); Glucose 98 mg/dL (74-106); Potassium 4.2 mmoL/L (3.5-5.1); Sodium 139 mmol/L (136-145); Total Protein,Serum 7.3 gm/dL (6.4-8.2)
[2019-09-19 23:07] LABS: Hepatitis C Genotype 1a (.)
== END ==
PROVIDERS: Visit Provider Emergency Medicine
DX: B19.20 Unspecified viral hepatitis C without hepatic coma (principal); M51.16 Intervertebral disc disorders with radiculopathy, lumbar region
CPT/HCPCS: 36415; 80053; 85025; 85610; 87522

== ENCOUNTER → 2019-09-29 15:58 | Outpatient (CLI) | payer MEDICARE, MEDICAID, SELFPAY ==
[2019-09-29 16:30] LABS: INR 1.06 (0.9-1.1)
[2019-09-29 17:18] LABS: Alanine Aminotransferase 21 U/L (12-78); Albumin Level 4.2 gm/dL (3.4-5.0); Alkaline Phosphatase 102 U/L (46-116); Anion Gap 15.3 mEq/L (5-15); Aspartate Amino Transferase 19 U/L (15-37); Bilirubin,Total 0.6 mg/dL (0.2-1.0); Blood Urea Nitrogen 17 mg/dL (7-18); Calcium 9.9 mg/dL (8.5-10.1); Carbon Dioxide 30 mmol/L (21.0-32.0); Chloride 100 mmol/L (98-107); Creatinine,Serum 0.99 mg/dL (0.55-1.02); Estimated Glomerular Filt Rate 56 ml/min (>60); GFR (African American) 68 ML/MIN (>60); Globulin 4.1 gm/dl (1.3-3.2); Glucose 118 mg/dL (74-106); Potassium 4.3 mmoL/L (3.5-5.1); Sodium 141 mmol/L (136-145); Total Protein,Serum 8.3 gm/dL (6.4-8.2)
[2019-09-29 21:26] LABS: Basophils # 0.1 K/mm3 (0-0.2); Basophils % 0.8 % (0.1-2.0); Eosinophils # 0.5 K/mm3 (0.0-0.4); Eosinophils % 4.2 % (0.1-12.0); Hemoglobin 16.7 g/dL (12.2-16.2); Lymphocytes # 3.7 K/mm3 (0.7-4.5); Lymphocytes % 31.9 % (10-50); Mean Corpuscular HGB Conc 32.8 g/dL (31.8-35.4); Mean Corpuscular Hemoglobin 30.1 pg (27.0-31.2); Mean Corpuscular Volume 91.6 fl (81-99); Monocytes # 0.5 K/mm3 (0.1-1.0); Neutrophils # 6.8 K/mm3 (1.8-7.8); Neutrophils % 59.2 % (37.0-80.0); Platelet Count 223 K/mm3 (142-424); Red Blood Count 5.57 M/mm3 (4.20-5.40); Red Cell Distribution Width 13.1 % (11.5-17.5); White Blood Count 11.5 K/mm3 (4.8-10.8)
== END ==
PROVIDERS: Visit Provider Emergency Medicine
DX: B19.20 Unspecified viral hepatitis C without hepatic coma (principal); M51.16 Intervertebral disc disorders with radiculopathy, lumbar region
CPT/HCPCS: 36415; 80053; 85025; 85610; 87522

== ENCOUNTER → 2019-10-10 15:34 | Outpatient (CLI) | payer MEDICARE, MEDICAID, SELFPAY ==
[2019-10-10 15:58] LABS: INR 1.07 (0.9-1.1); Prothrombin Time 11.1 seconds (9.4-11.8)
[2019-10-10 16:11] LABS: Basophils # 0.1 K/mm3 (0-0.2); Basophils % 0.8 % (0.1-2.0); Eosinophils # 0.6 K/mm3 (0.0-0.4); Eosinophils % 7.1 % (0.1-12.0); Hematocrit 52.1 % (37.0-47.0); Hemoglobin 16.4 g/dL (12.2-16.2); Lymphocytes # 2.2 K/mm3 (0.7-4.5); Lymphocytes % 25.9 % (10-50); Mean Corpuscular HGB Conc 31.5 g/dL (31.8-35.4); Mean Corpuscular Hemoglobin 29.2 pg (27.0-31.2); Mean Corpuscular Volume 92.7 fl (81-99); Mean Platelet Volume 9.6 fl (7.4-10.4); Monocytes # 0.4 K/mm3 (0.1-1.0); Monocytes % 4.4 % (1.7-9.3); Neutrophils # 5.2 K/mm3 (1.8-7.8); Neutrophils % 61.8 % (37.0-80.0); Platelet Count 204 K/mm3 (142-424); Red Blood Count 5.62 M/mm3 (4.20-5.40); Red Cell Distribution Width 12.9 % (11.5-17.5); White Blood Count 8.4 K/mm3 (4.8-10.8)
[2019-10-10 16:38] LABS: Alanine Aminotransferase 20 U/L (12-78); Albumin Level 3.8 gm/dL (3.4-5.0); Alkaline Phosphatase 100 U/L (46-116); Anion Gap 14.2 mEq/L (5-15); Aspartate Amino Transferase 15 U/L (15-37); Bilirubin,Total 0.5 mg/dL (0.2-1.0); Blood Urea Nitrogen 13 mg/dL (7-18); Calcium 9.5 mg/dL (8.5-10.1); Carbon Dioxide 30 mmol/L (21.0-32.0); Chloride 102 mmol/L (98-107); Creatinine,Serum 0.75 mg/dL (0.55-1.02); Estimated Glomerular Filt Rate 78 ml/min (>60); GFR (African American) 94 ML/MIN (>60); Globulin 3.9 gm/dl (1.3-3.2); Glucose 106 mg/dL (74-106); Potassium 4.2 mmoL/L (3.5-5.1); Sodium 142 mmol/L (136-145); Total Protein,Serum 7.7 gm/dL (6.4-8.2)
== END ==
PROVIDERS: Visit Provider Emergency Medicine
DX: B19.20 Unspecified viral hepatitis C without hepatic coma (principal); M51.16 Intervertebral disc disorders with radiculopathy, lumbar region
CPT/HCPCS: 36415; 80053; 85025; 85610; 87522

== ENCOUNTER → 2019-10-24 14:17 | Outpatient (CLI) | payer MEDICARE, MEDICAID, SELFPAY | PROVIDERS: Visit Provider Emergency Medicine | DX: B19.20 Unspecified viral hepatitis C without hepatic coma (principal) | CPT/HCPCS: 36415; 87522 ==

== ENCOUNTER → 2019-11-08 14:57 | Outpatient (CLI) | payer MEDICARE, MEDICAID, SELFPAY ==
[2019-11-08 15:00] LABS: MANUAL DIFFERENTIAL MANUAL DIFFERENTIAL (MANUAL DIFF)
[2019-11-08 15:18] LABS: Basophils # 0.1 K/mm3 (0-0.2); Basophils % 0.9 % (0.1-2.0); Eosinophils # 0.5 K/mm3 (0.0-0.4); Hemoglobin 16.1 g/dL (12.2-16.2); Lymphocytes # 3.4 K/mm3 (0.7-4.5); Lymphocytes % 33.2 % (10-50); Mean Corpuscular HGB Conc 32.2 g/dL (31.8-35.4); Mean Corpuscular Hemoglobin 29.2 pg (27.0-31.2); Mean Corpuscular Volume 90.8 fl (81-99); Monocytes # 0.5 K/mm3 (0.1-1.0); Monocytes % 4.9 % (1.7-9.3); Neutrophils # 5.7 K/mm3 (1.8-7.8); Neutrophils % 55.9 % (37.0-80.0); Platelet Count 216 K/mm3 (142-424); Red Cell Distribution Width 12.9 % (11.5-17.5); White Blood Count 10.2 K/mm3 (4.8-10.8)
[2019-11-08 15:26] LABS: Urine Pregnancy, HCG Qual. Negative (Negative)
[2019-11-08 16:14] LABS: Alanine Aminotransferase 17 U/L (12-78); Albumin Level 3.9 gm/dL (3.4-5.0); Albumin/Globulin Ratio 1.1 (1.1-1.8); Alkaline Phosphatase 95 U/L (46-116); Anion Gap 15.9 mEq/L (5-15); Aspartate Amino Transferase 22 U/L (15-37); Bilirubin,Total 0.5 mg/dL (0.2-1.0); Blood Urea Nitrogen 14 mg/dL (7-18); Calcium 9.6 mg/dL (8.5-10.1); Carbon Dioxide 29 mmol/L (21.0-32.0); Chloride 102 mmol/L (98-107); Creatinine,Serum 0.93 mg/dL (0.55-1.02); Estimated Glomerular Filt Rate 61 ml/min (>60); GFR (African American) 73 ML/MIN (>60); Globulin 3.7 gm/dl (1.3-3.2); Glucose 100 mg/dL (74-106); Potassium 3.9 mmoL/L (3.5-5.1); Sodium 143 mmol/L (136-145); Total Protein,Serum 7.6 gm/dL (6.4-8.2)
[2019-11-08 18:42] LABS: Eosinophils % 4 % (0-3); Lymphocytes % 35 % (10-50); Monocytes % 9 % (2-9); Neutrophils % 52 % (42-76); Platelet Estimate Normal; RBC Morphology Normal; Total Cells Counted 100
== END ==
PROVIDERS: Visit Provider Emergency Medicine
DX: B19.20 Unspecified viral hepatitis C without hepatic coma (principal)
CPT/HCPCS: 36415; 80053; 81025; 85007; 85014; 85018; 85048; 85049

== ENCOUNTER → 2019-12-05 10:55 | Outpatient (CLI) | payer MEDICARE, MEDICAID, SELFPAY ==
[2019-12-05 11:40] LABS: INR 1.03 (0.9-1.1); Prothrombin Time 10.7 seconds (9.4-11.8)
[2019-12-05 11:59] LABS: Basophils # 0.1 K/mm3 (0-0.2); Basophils % 0.7 % (0.1-2.0); Eosinophils # 0.6 K/mm3 (0.0-0.4); Eosinophils % 4.6 % (0.1-12.0); Hematocrit 46.8 % (37.0-47.0); Hemoglobin 15.5 g/dL (12.2-16.2); Lymphocytes # 3.6 K/mm3 (0.7-4.5); Lymphocytes % 29.4 % (10-50); Mean Corpuscular HGB Conc 33.1 g/dL (31.8-35.4); Mean Corpuscular Hemoglobin 29.2 pg (27.0-31.2); Mean Corpuscular Volume 88.1 fl (81-99); Mean Platelet Volume 9.4 fl (7.4-10.4); Monocytes # 0.6 K/mm3 (0.1-1.0); Neutrophils # 7.3 K/mm3 (1.8-7.8); Neutrophils % 60.2 % (37.0-80.0); Platelet Count 221 K/mm3 (142-424); Red Blood Count 5.31 M/mm3 (4.20-5.40); Red Cell Distribution Width 12.8 % (11.5-17.5); White Blood Count 12.1 K/mm3 (4.8-10.8)
[2019-12-05 12:07] LABS: Alanine Aminotransferase 21 U/L (9-52); Albumin Level 4.1 g/dL (3.4-5.0); Alkaline Phosphatase 111 U/L (46-116); Anion Gap 14.4 mEq/L (5-15); Aspartate Amino Transferase 17 U/L (15-37); Bilirubin,Total 0.3 mg/dL (0.2-1.0); Blood Urea Nitrogen 19 mg/dL (7-18); Carbon Dioxide 29 mmol/L (21.0-32.0); Chloride 103 mmol/L (98-107); Creatinine,Serum 0.83 mg/dL (0.55-1.02); Estimated Glomerular Filt Rate 69 ml/min (>60); GFR (African American) 83 ML/MIN (>60); Glucose 110 mg/dL (74-106); Potassium 4.4 mmoL/L (3.5-5.1); Sodium 142 mmol/L (137-145); Total Protein,Serum 8.1 g/dL (6.4-8.2)
[2019-12-05 12:16] LABS: Urine Pregnancy, HCG Qual. Negative (Negative)
== END ==
PROVIDERS: Visit Provider Emergency Medicine
DX: B19.20 Unspecified viral hepatitis C without hepatic coma (principal); M51.16 Intervertebral disc disorders with radiculopathy, lumbar region
CPT/HCPCS: 36415; 80053; 81025; 85025; 85610; 87522

== ENCOUNTER → 2019-12-07 17:05 | Outpatient (CLI) | payer MEDICARE, SELFPAY ==
[2019-12-07 21:43] LABS: Amphetamine/Metha Screen,Urine Negative ng/ml (<1000)
[2019-12-07 21:44] LABS: Barbiturates Screen,Urine Negative ng/ml (<200); Benzodiazepines Screen,Urine Negative ng/ml (<200)
[2019-12-07 21:45] LABS: Cannabinoid Screen,Urine Positive ng/ml (<50)
[2019-12-07 21:46] LABS: Cocaine Screen,Urine Negative ng/ml (<300); Methadone Screen,Urine Negative ng/ml (<300)
[2019-12-07 21:47] LABS: Opiate Screen,Urine Positive ng/ml (<300)
[2019-12-07 21:48] LABS: Phencyclidine Screen,Urine Negative ng/ml (<25)
== END ==
PROVIDERS: Visit Provider Emergency Medicine
DX: M51.16 Intervertebral disc disorders with radiculopathy, lumbar region (principal)
CPT/HCPCS: 80305

== ENCOUNTER → 2020-01-03 13:38 | Outpatient (CLI) | payer MEDICARE, SELFPAY ==
[2020-01-03 14:21] LABS: Basophils # 0.1 K/mm3 (0-0.2); Basophils % 0.9 % (0.1-2.0); Eosinophils # 0.6 K/mm3 (0.0-0.4); Eosinophils % 5.2 % (0.1-12.0); Hematocrit 50.4 % (37.0-47.0); Hemoglobin 16.2 g/dL (12.2-16.2); Lymphocytes # 3.5 K/mm3 (0.7-4.5); Lymphocytes % 33.1 % (10-50); Mean Corpuscular HGB Conc 32.1 g/dL (31.8-35.4); Mean Corpuscular Hemoglobin 28.6 pg (27.0-31.2); Mean Corpuscular Volume 89.3 fl (81-99); Mean Platelet Volume 10.3 fl (7.4-10.4); Monocytes # 0.5 K/mm3 (0.1-1.0); Monocytes % 4.4 % (1.7-9.3); Neutrophils % 56.5 % (37.0-80.0); Platelet Count 213 K/mm3 (142-424); Red Blood Count 5.65 M/mm3 (4.20-5.40); White Blood Count 10.6 K/mm3 (4.8-10.8)
[2020-01-03 14:52] LABS: Alanine Aminotransferase 20 U/L (12-78); Albumin Level 4.7 g/dl (3.5-5.0); Albumin/Globulin Ratio 1.5 (1.1-1.8); Alkaline Phosphatase 83 U/L (38-126); Anion Gap 14.4 mEq/L (5-15); Aspartate Amino Transferase 25 U/L (14-36); Bilirubin,Total 0.3 mg/dl (0.2-1.3); Blood Urea Nitrogen 12 mg/dl (7-17); Calcium 11.2 mg/dl (8.4-10.2); Carbon Dioxide 28 mmol/L (22.0-30.0); Chloride 98 mmol/L (98-107); Estimated Glomerular Filt Rate 72 ml/min (>60); GFR (African American) 87 ML/MIN (>60); Globulin 3.1 g/dL (1.3-3.2); Glucose 150 mg/dl (74-100); Potassium 4.4 mmoL/L (3.5-5.1); Sodium 136 mmol/L (136-145); Total Protein,Serum 7.8 g/dl (6.3-8.2)
[2020-01-03 15:06] LABS: Urine Pregnancy, HCG Qual. Negative (Negative)
== END ==
PROVIDERS: Visit Provider Emergency Medicine
DX: B19.20 Unspecified viral hepatitis C without hepatic coma (principal); M51.16 Intervertebral disc disorders with radiculopathy, lumbar region
CPT/HCPCS: 36415; 80053; 81025; 85025; 87522; 87902

== ENCOUNTER → 2020-03-02 16:06 | Outpatient (CLI) | payer MEDICARE, SELFPAY ==
[2020-03-02 16:36] LABS: Basophils # 0.1 K/mm3 (0-0.2); Eosinophils # 0.4 K/mm3 (0.0-0.4); Eosinophils % 3.5 % (0.1-12.0); Hematocrit 47.8 % (37.0-47.0); Hemoglobin 15.7 g/dL (12.2-16.2); Lymphocytes # 3.2 K/mm3 (0.7-4.5); Lymphocytes % 29.8 % (10-50); Mean Corpuscular HGB Conc 32.8 g/dL (31.8-35.4); Mean Corpuscular Hemoglobin 28.3 pg (27.0-31.2); Mean Corpuscular Volume 86.1 fl (81-99); Mean Platelet Volume 9.6 fl (7.4-10.4); Monocytes # 0.5 K/mm3 (0.1-1.0); Monocytes % 4.7 % (1.7-9.3); Neutrophils # 6.5 K/mm3 (1.8-7.8); Neutrophils % 61.1 % (37.0-80.0); Platelet Count 218 K/mm3 (142-424); Red Blood Count 5.55 M/mm3 (4.20-5.40); Red Cell Distribution Width 13.6 % (11.5-17.5); White Blood Count 10.6 K/mm3 (4.8-10.8)
[2020-03-02 16:39] LABS: Prothrombin Time 11.4 seconds (9.4-11.8)
[2020-03-02 18:42] LABS: Alanine Aminotransferase 14 U/L (12-78); Albumin Level 4.9 g/dl (3.5-5.0); Albumin/Globulin Ratio 1.4 (1.1-1.8); Alkaline Phosphatase 93 U/L (38-126); Anion Gap 13.6 mEq/L (5-15); Aspartate Amino Transferase 26 U/L (14-36); Bilirubin,Total 0.5 mg/dl (0.2-1.3); Blood Urea Nitrogen 24 mg/dl (7-17); Calcium 10.5 mg/dl (8.4-10.2); Carbon Dioxide 28 mmol/L (22.0-30.0); Chloride 99 mmol/L (98-107); Estimated Glomerular Filt Rate 72 ml/min (>60); GFR (African American) 87 ML/MIN (>60); Globulin 3.4 g/dL (1.3-3.2); Glucose 113 mg/dl (74-100); Potassium 3.6 mmoL/L (3.5-5.1); Sodium 137 mmol/L (136-145); Total Protein,Serum 8.3 g/dl (6.3-8.2)
[2020-03-05 14:31] LABS: Calcium, Ionized 5.4 mg/dL (4.5-5.6)
[2020-03-05 16:15] LABS: Parathyroid Hormone Intact 49 pg/mL (15-65)
== END ==
PROVIDERS: Visit Provider Emergency Medicine
DX: B19.20 Unspecified viral hepatitis C without hepatic coma (principal); M51.16 Intervertebral disc disorders with radiculopathy, lumbar region; E83.52 Hypercalcemia
CPT/HCPCS: 36415; 80053; 82330; 83970; 85025; 85610; 87522

== ENCOUNTER → 2020-05-02 13:40 | Outpatient (CLI) | payer MEDICARE, SELFPAY | PROVIDERS: Visit Provider Emergency Medicine | DX: M54.9 Dorsalgia, unspecified (principal) | CPT/HCPCS: 87086 ==

== ENCOUNTER → 2020-05-15 15:00 | Outpatient (POV) | payer MEDICARE, SELFPAY | PROVIDERS: PCP Emergency Medicine; Visit Provider Dermatology | DX: Z00.00 Encounter for general adult medical examination without abnormal findings (principal) ==

== ENCOUNTER → 2020-06-05 14:55 | Outpatient (CLI) | payer MEDICARE, SELFPAY ==
[2020-06-05 15:12] LABS: Basophils # 0.1 K/mm3 (0-0.2); Eosinophils # 0.7 K/mm3 (0.0-0.4); Eosinophils % 6.6 % (0.1-12.0); Hematocrit 46.9 % (37.0-47.0); Hemoglobin 14.9 g/dL (12.2-16.2); Lymphocytes # 4.3 K/mm3 (0.7-4.5); Lymphocytes % 41.7 % (10-50); Mean Corpuscular HGB Conc 31.9 g/dL (31.8-35.4); Mean Corpuscular Hemoglobin 28.5 pg (27.0-31.2); Mean Corpuscular Volume 89.4 fl (81-99); Mean Platelet Volume 9.5 fl (7.4-10.4); Monocytes # 0.4 K/mm3 (0.1-1.0); Monocytes % 4.1 % (1.7-9.3); Neutrophils # 4.8 K/mm3 (1.8-7.8); Neutrophils % 46.6 % (37.0-80.0); Platelet Count 178 K/mm3 (142-424); Red Blood Count 5.24 M/mm3 (4.20-5.40); Red Cell Distribution Width 14.5 % (11.5-17.5); White Blood Count 10.3 K/mm3 (4.8-10.8)
[2020-06-05 15:20] LABS: INR 1.08 (0.9-1.1)
[2020-06-05 15:54] LABS: Chloride 102 mmol/L (98-107); Potassium 4.3 mmoL/L (3.5-5.1); Sodium 143 mmol/L (136-145)
[2020-06-05 15:57] LABS: Alanine Aminotransferase 12 U/L (12-78); Albumin Level 4.3 g/dl (3.5-5.0); Albumin/Globulin Ratio 1.4 (1.1-1.8); Alkaline Phosphatase 89 U/L (38-126); Anion Gap 14.3 mEq/L (5-15); Aspartate Amino Transferase 20 U/L (14-36); Bilirubin,Total 0.4 mg/dl (0.2-1.3); Blood Urea Nitrogen 15 mg/dl (7-17); Calcium 10.3 mg/dl (8.4-10.2); Carbon Dioxide 31 mmol/L (22.0-30.0); Estimated Glomerular Filt Rate 72 ml/min (>60); GFR (African American) 87 ML/MIN (>60); Glucose 110 mg/dl (74-100); Total Protein,Serum 7.3 g/dl (6.3-8.2)
== END ==
PROVIDERS: Visit Provider Emergency Medicine
DX: B19.20 Unspecified viral hepatitis C without hepatic coma (principal); M51.16 Intervertebral disc disorders with radiculopathy, lumbar region
CPT/HCPCS: 36415; 80053; 85025; 85610; 87522

== ENCOUNTER → 2020-06-06 11:13 | Outpatient (CLI) | payer MEDICARE, SELFPAY ==
--- NOTE | 2020-06-06 11:16 | XR_ITS ---
PROCEDURE: XR THORACIC SPINE 3V CLINICAL INDICATION: back pain COMPARISON: CT [facility] CT CHEST W/O CONTRAST from 11/25/2016 FINDINGS: No fracture or dislocation. No lytic or blastic change. There is normal mineralization. There is mild thoracolumbar curvature convex left. There is mild wedging of T10 which was not readily apparent on 11/25/2016. No other significant anomalies are evident. Other findings:None. IMPRESSION: Mild wedging of T10 age indeterminate. MRI may better determine age of this finding. No obvious retropulsion. There are mild degenerative changes with mild thoracolumbar curvature convex left Dictated by: Aubrey Barrientos MD 06/06/2020 12:08 Aubrey Barrientos MD in [place] 06/06/2020 12:08
--- NOTE | 2020-06-06 11:16 | XR_ITS ---
PROCEDURE: XR CERVICAL SPINE 5V CLINICAL INDICATION: neck pain COMPARISON: No exams were available for comparison FINDINGS: No fracture or dislocation. No lytic or blastic change. There is normal mineralization. There is degenerative disc disease at C6-C7 with decrease in the disc space and osteophyte formation. No foraminal narrowing apparent. Mild facet arthritic changes are present from C3-C7. No evidence of cervical rib. There is some left-sided carotid artery calcification noted. Other findings:None. IMPRESSION: Degenerative disc disease C6-C7 Dictated by: Aubrey Barrientos MD 06/06/2020 12:01 Aubrey Barrientos MD in [place] 06/06/2020 12:01
--- NOTE | 2020-06-06 11:16 | XR_ITS ---
PROCEDURE: XR CHEST 2V CLINICAL HISTORY: shortness Shortness of air with cough COMPARISON: CR CXR CHEST(2 VIEWS-NOT PORTABLE) from 05/10/2014 CR CXR CHEST(2 VIEWS-NOT PORTABLE) from 12/11/2014 CR CXR1 CHEST-PORTABLE from 04/29/[address] CHEST W/O CONTRAST from 11/25/2016 FINDINGS: The cardiomediastinal silhouette and pulmonary vascularity are within normal limits. The lungs are clear without infiltrates, suspicious nodules, or pleural effusions. Mild lower thoracic curvature convex left IMPRESSION: No acute findings. Dictated by: Aubrey Barrientos MD 06/06/2020 12:06 Aubrey Barrientos MD in [place] 06/06/2020 12:06
== END ==
PROVIDERS: PCP Emergency Medicine; Visit Provider Emergency Medicine
DX: M54.9 Dorsalgia, unspecified (principal); R06.02 Shortness of breath; M54.2 Cervicalgia
CPT/HCPCS: 71046; 72050; 72072

== ENCOUNTER → 2020-12-03 15:19 | Outpatient (CLI) | payer MEDICARE, SELFPAY ==
[2020-12-03 16:24] LABS: Barbiturates Screen,Urine Negative ng/ml (<200)
[2020-12-03 16:25] LABS: Amphetamine/Metha Screen,Urine Negative ng/ml (<1000); Benzodiazepines Screen,Urine Negative ng/ml (<200)
[2020-12-03 16:26] LABS: Methadone Screen,Urine Negative ng/ml (<300)
[2020-12-03 16:27] LABS: Cannabinoid Screen,Urine Positive ng/ml (<50); Cocaine Screen,Urine Negative ng/ml (<300)
[2020-12-03 16:28] LABS: Opiate Screen,Urine Positive ng/ml (<300)
[2020-12-03 16:29] LABS: Phencyclidine Screen,Urine Negative ng/ml (<25)
== END ==
PROVIDERS: Visit Provider Emergency Medicine
DX: M51.16 Intervertebral disc disorders with radiculopathy, lumbar region (principal); Z79.899 Other long term (current) drug therapy
CPT/HCPCS: 80305

== ENCOUNTER → 2021-02-27 17:44 | Outpatient (CLI) | payer MEDICARE, SELFPAY ==
[2021-02-27 18:19] LABS: Amphetamine/Metha Screen,Urine Negative ng/ml (<1000)
[2021-02-27 18:20] LABS: Barbiturates Screen,Urine Negative ng/ml (<200); Benzodiazepines Screen,Urine Negative ng/ml (<200)
[2021-02-27 18:21] LABS: Cannabinoid Screen,Urine Positive ng/ml (<50)
[2021-02-27 18:22] LABS: Cocaine Screen,Urine Negative ng/ml (<300); Methadone Screen,Urine Negative ng/ml (<300)
[2021-02-27 18:23] LABS: Opiate Screen,Urine Positive ng/ml (<300)
[2021-02-27 18:24] LABS: Phencyclidine Screen,Urine Negative ng/ml (<25)
== END ==
PROVIDERS: Visit Provider Emergency Medicine
DX: M51.16 Intervertebral disc disorders with radiculopathy, lumbar region (principal); Z79.899 Other long term (current) drug therapy
CPT/HCPCS: 80305

== ENCOUNTER → 2021-03-07 13:42 | Outpatient (CLI) | payer MEDICARE, SELFPAY ==
[2021-03-07 14:23] LABS: Basophils # 0.1 K/mm3 (0-0.2); Basophils % 1.2 % (0.1-2.0); Eosinophils # 0.3 K/mm3 (0.0-0.4); Eosinophils % 2.7 % (0.1-12.0); Hematocrit 48.5 % (37.0-47.0); Lymphocytes % 35.3 % (10-50); Mean Corpuscular Hemoglobin 27.9 pg (27.0-31.2); Mean Corpuscular Volume 84.5 fl (81-99); Monocytes # 0.5 K/mm3 (0.1-1.0); Monocytes % 4.4 % (1.7-9.3); Neutrophils # 6.3 K/mm3 (1.8-7.8); Neutrophils % 56.5 % (37.0-80.0); Platelet Count 209 K/mm3 (142-424); Red Blood Count 5.74 M/mm3 (4.20-5.40); Red Cell Distribution Width 13.6 % (11.5-17.5); White Blood Count 11.2 K/mm3 (4.8-10.8)
[2021-03-07 15:12] LABS: Alanine Aminotransferase 13 U/L (12-78); Albumin Level 4.7 g/dl (3.5-5.0); Alkaline Phosphatase 77 U/L (38-126); Aspartate Amino Transferase 20 U/L (14-36); Bilirubin,Direct 0.4 mg/dl (0.0-0.4); Bilirubin,Indirect 0.2 mg/dL (0.0-0.9); Bilirubin,Total 0.6 mg/dl (0.2-1.3); Bilirubin,Unconjugated 0.2 mg/dL (0.0-1.1); Blood Urea Nitrogen 19 mg/dl (7-17); Calcium 10.3 mg/dl (8.4-10.2); Carbon Dioxide 31 mmol/L (22.0-30.0); Chloride 101 mmol/L (98-107); Chol/HDL Ratio 5.7 (1-3.5); Cholesterol 229 mg/dl (140-200); Estimated Glomerular Filt Rate 63 ml/min (>60); GFR (African American) 76 ML/MIN (>60); Glucose 96 mg/dl (74-100); HDL Cholesterol 40 mg/dl (40-60); Sodium 140 mmol/L (136-145); Total Protein,Serum 7.3 g/dl (6.3-8.2); Triglycerides 197 mg/dl (30-150); VLDL Cholesterol 39 mg/dL (0-40)
[2021-03-07 15:23] LABS: Direct LDL Cholesterol 141.14 mg/dL (100-129)
[2021-03-07 15:44] LABS: Thyroid Stimulating Hormone 1.05 uIU/mL (0.465-4.68)
[2021-03-07 16:09] LABS: T4 (Thyroxine) 10.6 ug/dl (5.53-11.0); Triiodothryronine (T3) Uptake 28 % (23.5-40.5)
== END ==
PROVIDERS: Visit Provider Urology
DX: E78.5 Hyperlipidemia, unspecified (principal); F17.200 Nicotine dependence, unspecified, uncomplicated; J44.9 Chronic obstructive pulmonary disease, unspecified; R06.00 Dyspnea, unspecified; R07.89 Other chest pain; R42 Dizziness and giddiness; R60.9 Edema, unspecified; R94.31 Abnormal electrocardiogram [ECG] [EKG]; R09.89 Other specified symptoms and signs involving the circulatory and respiratory systems; E11.9 Type 2 diabetes mellitus without complications; I11.9 Hypertensive heart disease without heart failure; Z01.812 Encounter for preprocedural laboratory examination; Z11.52 Encounter for screening for COVID-19
CPT/HCPCS: 36415; 80048; 80061; 80076; 84436; 84443; 84479; 85025; U0003

== ENCOUNTER 2021-03-08 06:12 | Day surgery (SDC) | payer MEDICARE, SELFPAY ==
[2021-03-08] VITALS (12 sets, daily range): BP systolic 96–189; BP diastolic 40–103; PULSE 56–89; RESP 16–22; TEMP 36.7–36.8; O2SAT 90–97; BMI 28.3
--- NOTE | 2021-03-08 06:17 | CA_ITS ---
APPROVED REPORT Craft Center Director: ASA Laterality: Bilateral Study Quality: Adequate Indications: dizziness Risk Factors Hypertension: Hyperlipidemia Smoking Doppler Spectral Velocity Analysis ECA (R) 115.00/11.00 cm/s ECA (L) 101.00/13.00 cm/s dICA (R) 73.00/19.00 cm/s dICA (L) 66.00/20.00 cm/s Hao (R) 70.00/20.00 cm/s Hao (L) 72.00/19.00 cm/s pICA (R) 62.00/14.00 cm/s pICA (L) 59.00/13.00 cm/s dCCA (R) 73.00/16.00 cm/s dCCA (L) 75.00/15.00 cm/s pCCA (R) 76.00/15.00 cm/s pCCA (L) 98.00/20.00 cm/s Vert (R) 46.00/12.00 cm/s Vert (L) 90.00/23.00 cm/s ICA/CCA 1.00 ICA/CCA 0.96 Findings Bilateral intimal wall thickening with mild plaque formations at proximal ICA's. No hemodynamically significant stenosis noted. Duplex evaluation demonstrates stenosis of the right proximal internal carotid artery in the range of 20-49%. Duplex evaluation demonstrates stenosis of the left proximal internal carotid artery in the range of 20-49%. Duplex evaluation demonstrates antegrade flow of the bilateral Vertebral Arteries. Conclusion Duplex evaluation demonstrates stenosis of the right proximal internal carotid artery in the range of 20-49%. Duplex evaluation demonstrates stenosis of the left proximal internal carotid artery in the range of 20-49%. Duplex evaluation demonstrates antegrade flow of the bilateral Vertebral Arteries. Electronically signed by : Aubrey Barrientos MD 03/08/2021 16:20:49
--- NOTE | 2021-03-08 06:17 | CA_ITS ---
APPROVED REPORT EXAM: Comprehensive 2D, Doppler, and color-flow Echocardiogram Journeyman Plumber: Jennifer Dykes CRT Ht: 5 ft 2 in Wt: 155lbs BSA: 1.72 BP: 161/74 mmHg Indications: Shortness of Breath, Peripheral Edema, Hyperlipidemia, Hypertension/HDD, smoker, ADIEL, TIA, ABN EKG, 2D Dimensions LVOT 2.00 cm (M/F) 1.5-2.5 LA Volume 38.30 mL LA Volume Index 22.30 mL/m2 (M/F) 16-34 M-Mode Dimensions RVDd 2.44 cm (0.9-2.6) LA Diam 3.66 cm (1.9-4.0) LVDd 4.27 cm (3.5-5.7) Ao Diam 3.46 cm (2.0-3.7) LVDs 2.76 cm (3.5-5.7) IVSd 1.79 cm (0.6-1.1) PWd 0.86 cm (0.6-1.1) EF (Teich) 65.10% FS 35.40% EDV (Teich) 81.70 mL TAPSE 2.10 (<1.7) ESV (Teich) 28.50 mL LV Diastology E Decel Time 230.00 (160-240 msec) E/A Ratio 0.70 MED E' 5.80 (< 7 cm/sec) MED A' 9.00 cm/s E'/MED E' Ratio 8.29 (>14) LAT E' 4.30 (<10 cm/sec) LAT A' 7.60 cm/s E/LAT E' Ratio 11.19 (>14) Aortic Valve AO Peak GR. 7.30 mmHg Mitral Valve MV A Velocity 68.00 (40-130 cm/s) E/A Ratio 0.70 MV Decel. Time 230.00 (160-240 ms) Pulmonary Valve PV Peak Velocity 58.00 (50-150 cm/s) Tricuspid Valve TR P. Velocity 210.00 cm/s RAP Estimate 10.00 mmHg RVSP 27.70 mmHg Left Ventricle Left atrium is mildly enlarged, left ventricle is normal size, mild concentric left ventricular hypertrophy, visually estimated ejection fraction 55% with no regional wall motion abnormality, grade 1 diastolic dysfunction seen without tissue Doppler evidence of raise left atrial pressure. Right Ventricle Right atrium and right ventricle are mildly enlarged with normal contractility. Aortic Valve Aortic valve is minimally thickened and fibrosed, there is no aortic stenosis or significant aortic insufficiency. Mitral Valve Mitral valve is is grossly normal, there is trace mitral regurgitation. Tricuspid Valve Tricuspid grossly normal, there is trace tricuspid regurgitation, tricuspid regurgitation jet velocity is inadequate for calculation of the right ventricular systolic pressure. Pulmonic Valve Pulmonic valve is poorly visualized. Great Vessels Aortic root is normal size. Pericardium No significant pericardial effusion noted. Conclusion 1. Mild biatrial enlargement, normal left ventricular size, mild concentric left ventricular hypertrophy, visually estimated ejection fraction 55% with no regional wall motion abnormality, grade 1 diastolic dysfunction seen without tissue Doppler evidence of raise left atrial pressure. 2. Mildly enlarged right ventricle with normal contractility. 3. Trace mitral and tricuspid regurgitation. 4. No significant pericardial effusion noted. Electronically signed by : Angel Franks, 03/08/2021 13:17:15
--- NOTE | 2021-03-08 06:55 | IR_ITS ---
APPROVED REPORT Patient Location: Outpatient Paint Process Engineer: JEANNINE Granados RT (R) PROCEDURES Left heart catheterization Left ventriculogram Selective coronary angiogram INDICATION Accelerated angina pectoris, Anterior infarct on EKG, Numerous risk factors for coronary disease Informed consent was obtained prior to the procedure. COMPLICATIONS None Estimated Blood Loss: Less than 10 mls TECHNIQUE One percent lidocaine used to anesthetize the right anterior aspect of the wrist. The right radial artery was accessed via the Seldinger technique. A 6 Vietnamese sheath was placed in the right radial artery. 2.5 mg of verapamil, 800 mcg of nitroglycerin, 1mg Lidocaine and 5000 U Heparin were given through the arterial sheath. The trap catheter and 6 Vietnamese JL 3 was also used to perform left heart catheterization, left ventriculogram and selective coronary angiogram. At the end of the procedure the sheath was removed good hemostasis was achieved using Traclet band, patient was transferred to the postop holding area in stable condition. ANGIOGRAPHIC RESULTS The left main artery Normal The left anterior descending artery Has proximal 10 to 20% concentric stenosis followed by mid vessel 30 to 40% stenosis with an additional mid vessel 30% stenosis along a tortuous bend The circumflex artery Nondominant with diffuse 20% luminal irregularities The right coronary artery Is dominant with diffuse 10% stenoses The WILSON ventriculogram reveals Hyperdynamic at greater than 80% The left ventricular end-diastolic pressure Severely elevated at 40 mmHg IMPRESSION Mild to moderate nonflow limiting coronary disease Hyperdynamic ventricle consistent with severe diastolic dysfunction combined with severe hypertensive heart disease Severely elevated LVEDP consistent with diastolic dysfunction and severe hypertensive heart disease PLAN 1. Medical management for coronary disease 2. Treatment of diastolic dysfunction and hypertension 3. Risk factor modification Electronically signed by : Rahul Carter, 03/08/2021 08:24:12
== END 2021-03-08 12:03 | disposition home or self-care (01) ==
LOC: CATHLAB 06:13
PROVIDERS: PCP Emergency Medicine; Visit Provider Internal Medicine
DX: I25.118 Atherosclerotic heart disease of native coronary artery with other forms of angina pectoris (principal); E78.5 Hyperlipidemia, unspecified; I10 Essential (primary) hypertension; J44.9 Chronic obstructive pulmonary disease, unspecified; R06.00 Dyspnea, unspecified; R07.89 Other chest pain; R42 Dizziness and giddiness; R60.9 Edema, unspecified; R94.31 Abnormal electrocardiogram [ECG] [EKG]; F17.210 Nicotine dependence, cigarettes, uncomplicated; Z71.6 Tobacco abuse counseling; Z88.5 Allergy status to narcotic agent; Z91.018 Allergy to other foods
CPT/HCPCS: 93306; 93458; 93880; 99152; C1725; C1769; J1644; Q9967

== ENCOUNTER → 2021-03-20 11:26 | Outpatient (CLI) | payer MEDICARE, SELFPAY ==
--- NOTE | 2021-03-20 11:41 | CT_ITS ---
PROCEDURE: CT HEAD/BRAIN WITHOUT AND WITH CONTRAST CLINICAL INDICATION: facial droop, hx of TIA COMPARISON: [facility] MRI-BRAIN W/WO from 07/16/2016 TECHNIQUE: IV Contrast: 100ML Isovue 370 Axial images obtained. All CT scans at the facility use one or more dose reduction, viz: automated exposure control, ma/kV adjustment per patient size (including targeted exams where dose is matched to indication, i.e. head), or iterative reconstruction technique. FINDINGS: No midline shift, mass effect, intracranial hemorrhage, hydrocephalus, or extra-axial fluid collection is evident. There are few scattered low-density changes in the periventricular region consistent with ischemic gliotic changes from small vessel disease. There is an old lacunar infarction in the right anterior aspect of the basal ganglia/centrum semiovale. No enhancing lesions are evident. The calvarium has an unremarkable appearance. No mastoid effusion or sinus air-fluid level. IMPRESSION: No acute intracranial findings. There is an old lacunar infarction in the right basal ganglia/centrum semiovale. Dictated by: Aubrey Barrientos MD 03/20/2021 13:24 Aubrey Barrientos MD in [place] 03/20/2021 13:24
[2021-03-20 12:20] LABS: Anion Gap 16.1 mEq/L (5-15); Blood Urea Nitrogen 17 mg/dl (7-17); Calcium 9.9 mg/dl (8.4-10.2); Carbon Dioxide 28 mmol/L (22.0-30.0); Chloride 102 mmol/L (98-107); Estimated Glomerular Filt Rate 50 ml/min (>60); GFR (African American) 60 ML/MIN (>60); Glucose 119 mg/dl (74-100); Potassium 5.1 mmoL/L (3.5-5.1); Sodium 141 mmol/L (136-145)
== END ==
PROVIDERS: Visit Provider Physician Assistant
DX: E78.5 Hyperlipidemia, unspecified (principal); I10 Essential (primary) hypertension; R06.00 Dyspnea, unspecified; G45.9 Transient cerebral ischemic attack, unspecified; R29.810 Facial weakness
CPT/HCPCS: 36415; 70460; 80048; Q9967

== ENCOUNTER → 2021-05-08 17:07 | Outpatient (CLI) | payer MEDICARE, SELFPAY ==
[2021-05-09 00:31] LABS: Amphetamine/Metha Screen,Urine Negative ng/ml (<1000); Barbiturates Screen,Urine Negative ng/ml (<200); Benzodiazepines Screen,Urine Negative ng/ml (<200); Cannabinoid Screen,Urine Positive ng/ml (<50); Cocaine Screen,Urine Negative ng/ml (<300); Methadone Screen,Urine Negative ng/ml (<300); Opiate Screen,Urine Positive ng/ml (<300); Phencyclidine Screen,Urine Negative ng/ml (<25)
== END ==
PROVIDERS: Visit Provider Emergency Medicine
DX: M51.16 Intervertebral disc disorders with radiculopathy, lumbar region (principal)
CPT/HCPCS: 80305

== ENCOUNTER 2021-06-12 11:08 | Inpatient (IN) | payer MEDICARE, SELFPAY ==
[2021-06-12] VITALS (20 sets, daily range): BP systolic 103–142; BP diastolic 51–90; PULSE 64–99; RESP 16–24; TEMP 36.4–37; O2SAT 92–100; BMI 26.5; BMI 26.2
--- NOTE | 2021-06-12 | IR_ITS ---
APPROVED REPORT Patient Location: [facility] Funder: JEANNINE Granados RT (R) PROCEDURES Left heart catheterization Left ventriculogram Selective coronary angiogram INDICATION Acute ST elevation myocardial infarction Informed consent was obtained prior to the procedure. COMPLICATIONS None Estimated Blood Loss: Less than 10 mls TECHNIQUE One percent lidocaine was used to anesthetize the right groin. The right femoral artery was accessed via the Seldinger technique. A 4-Maori sheath was placed in the right femoral artery. The JL-4 and JR-4 catheter was also used to perform left heart catheterization left ventriculogram and selective coronary angiogram. At the end of the procedure the patient was transferred to the post-op holding area in stable condition for arterial sheath removal. ANGIOGRAPHIC RESULTS The left main artery Normal The left anterior descending artery Has proximal 10% stenoses followed by an additional concentric 30 to 40% stenosis with remaining vessel being widely patent The circumflex artery Codominant with diffuse 10% luminal irregularities The right coronary artery Codominant with diffuse 10% luminal irregularities The WILSON ventriculogram reveals Severe left ventricular dilatation with severe apical ballooning estimated ejection fraction 20% The left ventricular end-diastolic pressure 10 mmHg IMPRESSION Mild to moderate nonflow limiting coronary disease as described above Apical ballooning with severe left ventricular dysfunction accompanied by abnormal EKG with elevated troponins. Patient is suffering from Takotsubo cardiomyopathy Normal left ventricular end-diastolic pressure PLAN 1. Aspirin and Plavix for 1 year 2. LDL less than 55 3. Avoidance of tobacco products 4. Supportive care 5. Patient will require LifeVest prior to discharge home 6. Standard therapy for systolic dysfunction including Entresto plus carvedilol 7. At this time patient's LVEDP is normal and does not require diuretics Electronically signed by : Rahul Carter MD 06/12/2021 13:46:02
[2021-06-12 11:49] LABS: Chloride 102 mmol/L (98-107)
[2021-06-12 11:50] LABS: Basophils # 0.1 K/mm3 (0-0.2); Basophils % 0.5 % (0.1-2.0); Eosinophils # 0.1 K/mm3 (0.0-0.4); Eosinophils % 0.4 % (0.1-12.0); Hematocrit 51.4 % (37.0-47.0); Hemoglobin 16.6 g/dL (12.2-16.2); Lymphocytes # 2.3 K/mm3 (0.7-4.5); Lymphocytes % 14.9 % (10-50); Mean Corpuscular HGB Conc 32.2 g/dL (31.8-35.4); Mean Corpuscular Hemoglobin 28.9 pg (27.0-31.2); Mean Corpuscular Volume 89.6 fl (81-99); Mean Platelet Volume 9.9 fl (7.4-10.4); Monocytes # 0.4 K/mm3 (0.1-1.0); Monocytes % 2.8 % (1.7-9.3); Neutrophils # 12.5 K/mm3 (1.8-7.8); Neutrophils % 81.5 % (37.0-80.0); Platelet Count 315 K/mm3 (142-424); Potassium 5.4 mmoL/L (3.5-5.1); Red Blood Count 5.73 M/mm3 (4.20-5.40); Sodium 146 mmol/L (136-145); White Blood Count 15.4 K/mm3 (4.8-10.8)
[2021-06-12 11:52] LABS: Alanine Aminotransferase 22 U/L (12-78); Alkaline Phosphatase 122 U/L (38-126); Anion Gap 22.4 mEq/L (5-15); Aspartate Amino Transferase 48 U/L (14-36); Bilirubin,Total 0.8 mg/dl (0.2-1.3); Blood Urea Nitrogen 21 mg/dl (7-17); Carbon Dioxide 27 mmol/L (22.0-30.0); Creatinine Clearance Estimated 48 mL/min (50-200); Estimated Glomerular Filt Rate 45 ml/min (>60); GFR (African American) 54 ML/MIN (>60)
[2021-06-12 11:53] LABS: Albumin Level 4.9 g/dl (3.5-5.0); Albumin/Globulin Ratio 1.1 (1.1-1.8); Calcium 10.5 mg/dl (8.4-10.2); Globulin 4.3 g/dL (1.3-3.2); Glucose 159 mg/dl (74-100); MANUAL DIFFERENTIAL MANUAL DIFFERENTIAL (MANUAL DIFF); Total Protein,Serum 9.2 g/dl (6.3-8.2)
[2021-06-12 12:18] LABS: Lymphocytes % 20 % (10-50); Monocytes % 3 % (2-9); Neutrophils % 72 % (42-76); Platelet Estimate Normal; Total Cells Counted 100
--- NOTE | 2021-06-12 12:58 | HMH.EDGENADL ---
ED Disposition Clinical Impression: Gastroenteritis ST elevation GA (STEMI) Qualifiers: Involved coronary artery: unspecified coronary artery Qualified Code(s): I21.3 - ST elevation (STEMI) myocardial infarction of unspecified site Disposition: Admitted As Inpatient Condition on Discharge: Serious Referrals: Ronald Gr MD [Primary Care Provider] - - Critical Care Critical Care Time: No Attestation: On 06/12/21, the high probability of a clinically significant, sudden or life threatening deterioration of the following system(s) required my full and direct attention, intervention and personal management. The time I documented below is in addition to time spent performing reported procedures but includes the following listed in this critical care notation. Medical Decision Making - Honorio Inquiry Pt receiving controlled substance: No Vital Signs: 06/12/21 11:16 Temperature 98 F Temperature Source Oral Pulse Rate [Right] 91 H Respiratory Rate 18 Blood Pressure [Right Arm] 127/88 Blood Pressure Mean [Right Arm] 101 02 Sat by Pulse Oximetry 98 Oxygen Delivery Method Room Air - Lab Data Lab Results 06/12/21 11:23: WBC 15.4 H, RBC 5.73 H, Hgb 16.6 H, Hct 51.4 H, MCV 89.6, MCH 28.9, MCHC 32.2, RDW 14.0, Plt Count 315, MPV 9.9, Neut % (Auto) 81.5 H, Lymph % (Auto) 14.9, Lane % (Auto) 2.8, Eos % (Auto) 0.4, Baso % (Auto) 0.5, Neut # (Auto) 12.5 H, Lymph # (Auto) 2.3, Lane # (Auto) 0.4, Eos # (Auto) 0.1, Baso # (Auto) 0.1, Total Counted 100, Neutrophils % (Manual) 72, Band Neutrophils % 4.0, Lymphocytes % (Manual) 20, Monocytes % (Manual) 3, Basophils % (Manual) 1.0, Platelet Estimate Normal 06/12/21 11:23: Sodium 146 H, Potassium 5.4 H, Chloride 102, Carbon Dioxide 27, Anion Gap 22.4 H, BUN 21 H, Creatinine 1.20 H, Estimated Creat Clear 48, Estimated GFR 45 L, Est GFR ( Amer) 54 L, Glucose 159 H, Calcium 10.5 H, Total Bilirubin 0.8, AST 48 H, ALT 22, Alkaline Phosphatase 122, Total Protein 9.2 H D, Albumin 4.9, Globulin 4.3 H, Albumin/Globulin Ratio 1.1 Result diagrams: 06/12/21 11:23 06/12/21 11:23 Orders (Tests/Meds): ED MEDICATIONS Discontinued Medications Generic Name Dose Route Start Last Admin Trade Name Bradleyq PRN Reason Stop Dose Admin Ondansetron HCl 4 mg 06/12/21 12:54 Ondansetron 4mg/2ml Vial IV 06/12/21 12:55 ONCE ONE Sodium Chloride 1,000 ml 06/12/21 12:54 Sodium Chloride 0.9% 1000ml Bag IV 06/12/21 12:55 BOLUS ONE ORDERS Category Date Time Status Diarrhea 6-11 Panel, Cdiff PCR Stat Lab 06/12/21 11:42 Ordered Rapid PCR Covid and Flu A/B Stat Lab 06/12/21 13:00 Ordered Trop I [Troponin I] Stat Lab 06/12/21 12:53 Ordered Troponin I Q3H Lab 06/12/21 16:00 Ordered Troponin I Q3H Lab 06/12/21 19:00 Ordered - ECG Data Tracing #1 EKG interpreted by Farrukh Tomlinson MD: Rhythm: sinus Rate: 76 Batchelor: normal Ectopy: none Conduction: normal ST Segment Changes: Mild elevation in the anterior and lateral leads, inferior leads. T Wave Changes: Inversion in anterior and lateral leads. Q Waves: none No evidence of acute ischemia or injury EKG changes are new compared to previous. - Physician Consults Physician Consulted: Emma Time: 13:04 Reason -: Cardiology Eval/Care Comment/Response: EKG transmitted and he has reviewed. He responded to the emergency department saw the patient and is taking her to the Nitric Acid Concentrator Operator. General Adult HPI - General Chief complaint: Nausea/Vomiting/Diarrhea Stated complaint: vomiting, diarrhea Time Seen by Provider: 06/12/21 12:48 Mode of Arrival: Ambulatory Limitations: No Limitations Description of Symptoms (Recalled from ER Triage Doc. by RN): c/o nausea, vomiting, diarrhea & fevers x3 weeks. denies abdominal pain. states her stools have been yellow, denies visible blood. - History of Present Illness HPI narrative: States she has been sick for 3 weeks. Intractable vomiting and diarrhea. She
--- NOTE | 2021-06-12 13:00 | ECG_ITS ---
APPROVED REPORT Exam: Resting ECG HR:76 bpm ECG Measurements Heart Rate 76 AXES TX 132 P 67 QRSd 88 QRS 41 QT 426 T 111 QTc 479 Conclusion Normal sinus rhythm Anterior infarct, age undetermined Inferior injury pattern ACUTE TX Abnormal ECG Electronically signed by : Rafy Weston MD 06/13/2021 17:35:38
--- NOTE | 2021-06-12 13:07 | PC.NURSE ---
Dr. Carter speaking with ER MD at pt BS. STEMI alert called per Dr. Carter, he has notified labor delivery specialist staff of pt.
[2021-06-12 13:14] LABS: Coronavirus 19, PCR Not Detected (NotDetected); Influenza A, PCR Not Detected (NotDetected); Influenza B, PCR Not Detected (NotDetected)
--- NOTE | 2021-06-12 13:14 | PC.NURSE ---
pt to optical laboratory technician thomsa scott rn and thomas wagoner transporting pt on zole monitor
--- NOTE | 2021-06-12 13:14 | PC.NURSE ---
pt to tutorial laboratory supervisor emergently at this time.
--- NOTE | 2021-06-12 13:16 | HMH.CNCARD ---
History of Present Illness Consult date: 06/12/21 Requesting physician: Farrukh Tomlinson Consult reason: chest pain Chief complaint: Chest pain. STEMI History of present illness: 65-year-old female presented to ED with intractable vomiting and diarrhea for the past few days. Patient states she has been sick for the past 3 weeks. Patient denies abdominal pain. Patient states that she has been having some midsternal chest pain especially throughout last evening. Patient states shortness of breath does accompany the chest pain. Patient states will have episodes of diaphoresis with and without chest pain. Patient states the vomiting and the diarrhea have become worse this a.m. Patient denies fever. Patient does have history of coronary artery disease. Patient underwent last heart catheterization in February 2021, which revealed mild to moderate nonflow limiting coronary artery disease, hyperdynamic ventricular consistent with severe diastolic dysfunction combined with severe hypertensive heart disease. Patient noted to have severely elevated LVEDP consistent with diastolic dysfunction and severe hypertension heart disease. Patient is on standard care for hypertensive heart disease and CAD. Patient does have history of carotid artery stenosis. Bilateral ICA I noted 20 to 49%. Patient does have history of hypertension and hyperlipidemia. Patient is a smoker in which she smokes 1 pack/day. Patient does follow-up with his cardiology clinic. Last appointment was in April in which she stated she was under a lot of stress. Blood pressure was elevated. Bisoprolol had been increased to 10 mg daily. Last of echocardiogram was performed in February 2021 which revealed EF 55% with no regional wall motion abnormality with grade 1 diastolic dysfunction with a trace of mitral and tricuspid regurgitation. EKG was performed in ED which revealed patient noted with STEMI. Troponin had not been resulted at this time. Dr. Carter was notified. Dr. Carter spoke with patient regarding undergoing left heart catheterization due to STEMI. Discussed risk and benefits of undergoing left heart catheterization with patient. Patient verbalized understanding and is agreeable to procedure. Circulation Sales Representative was notified. Pending on the results of the left heart catheterization, medication and treatment therapies may be recommended. Echo: Conclusion (03/08) 1. Mild biatrial enlargement, normal left ventricular size, mild concentric left ventricular hypertrophy, visually estimated ejection fraction 55% with no regional wall motion abnormality, grade 1 diastolic dysfunction seen without tissue Doppler evidence of raise left atrial pressure. 2. Mildly enlarged right ventricle with normal contractility. 3. Trace mitral and tricuspid regurgitation. 4. No significant pericardial effusion noted. [facility]:ANGIOGRAPHIC RESULTS (03/08) The left main artery Normal The left anterior descending artery Has proximal 10 to 20% concentric stenosis followed by mid vessel 30 to 40% stenosis with an additional mid vessel 30% stenosis along a tortuous bend The circumflex artery Nondominant with diffuse 20% luminal irregularities The right coronary artery Is dominant with diffuse 10% stenoses The WILSON ventriculogram reveals Hyperdynamic at greater than 80% The left ventricular end-diastolic pressure Severely elevated at 40 mmHg IMPRESSION Mild to moderate nonflow limiting coronary disease Hyperdynamic ventricle consistent with severe diastolic dysfunction combined with severe hypertensive heart disease Severely elevated LVEDP consistent with diastolic dysfunction and severe hypertensive heart disease PLAN 1. Medical management for coronary disease 2. Treatment of diastolic dysfunction and hypertension 3. Risk factor modification Thank you for allowing cardiology to participate in the care of this patient. [facility] History Medical History: Reports:: Anxiety, Chronic Obstructive Pulmonary Disease (
[2021-06-12 13:35] LABS: Troponin I 2.69 ng/ml (0.00-0.034)
--- NOTE | 2021-06-12 13:45 | PC.NURSE ---
SELVIN ESTEVEZ spoke with Dr. Gr at this time
--- NOTE | 2021-06-12 14:19 | HMH.PHAVTE ---
[facility] Pharmacy VTE Monitoring - Patient Demographics Admission date: 06/12/21 Report Date: 06/12/21 Time: 14:19 Allergies/Adverse Reactions: Patient Allergies acetaminophen [From DARVOCET-N] Allergy (Unknown, Verified 05/13/21 13:08) codeine [CODEINE] Allergy (Unknown, Verified 05/13/21 13:08) propoxyphene [From DARVOCET-N] Allergy (Unknown, Verified 05/13/21 13:08) TOMATOES (FOOD) Allergy (Mild, Uncoded 05/08/21 13:42) upset stomach Height: 1.57 m Weight: 65.771 kg Patient Problems: Current Active Problems ST elevation HI (STEMI) (Acute) Gastroenteritis (Acute) - VTE Risk Labs: VTE Related Lab Results Hgb 16.6 g/dL (12.2-16.2) H 06/12/21 11:23 Hct 51.4 % (37.0-47.0) H 06/12/21 11:23 Plt Count 315 K/mm3 (142-424) 06/12/21 11:23 BUN 21 mg/dl (7-17) H 06/12/21 11:23 Creatinine 1.20 mg/dl (0.52-1.04) H 06/12/21 11:23 Estimated Creat Clear 48 mL/min (50-200) 06/12/21 11:23 Clinical Trial Participant: No - Prophylaxis VTE Prophylaxis Ordered?: Yes Types of VTE Prophylaxis: TEDS Knee High
--- NOTE | 2021-06-12 15:08 | CA_ITS ---
APPROVED REPORT EXAM: Comprehensive 2D, Doppler, and color-flow Echocardiogram Water Plant Maintenance Mechanic: Jennifer Dykes CRT Ht: 5 ft 2 in Wt: 145lbs BSA: 1.67 BP: 141/87 mmHg Indications: stemi today, pt been sick with n&v for 3 weeks and bedfast during this time, 20% ef on todays cath w apical ballooning, smoker, HTN, HLD,COPD, smoker 2D Dimensions IVSd 2.08 cm LVEF (Visual) 45.30 % PWd 0.68 cm LVDd 4.26 cm LVDs 3.31 cm M-Mode Dimensions RVDd 2.47 cm (0.9-2.6) LVDd 5.01 cm (3.5-5.7) LVDs 3.73 cm (3.5-5.7) IVSd 1.75 cm (0.6-1.1) PWd 0.53 cm (0.6-1.1) EF (Teich) 50.10% FS 25.50% EDV (Teich) 118.80 mL ESV (Teich) 59.30 mL Conclusion 1. Limited echocardiogram was performed to evaluate left ventricular systolic function, left ventricle is normal size, visually estimated ejection fraction 20%, there is marked hypo to akinesis involving mid to distal septum, anterior, anterior apical and apical wall. 2. No significant pericardial effusion noted. Electronically signed by : Angel Franks MD 06/13/2021 15:15:44
--- NOTE | 2021-06-12 21:32 | P.HP_ITS ---
*Admission Date: 06/12/21 *Chief complaint: vomiting *History of present illness: this patient reported not feeling well and presented to the ed- states she has been sick for 3 weeks. Intractable vomiting and diarrhea. She says her diarrhea is continuous. Yellow without blood. Denies abdominal pain. She has felt feverish and has had excessive sweating, but has not taken her temperature. Her only recent travel is been within the state of [place]. No known exposures. She has not seen her primary care provider for her current symptoms. No medications taken for her symptoms. Complains of excessive thirst. States everything she drinks just go straight through her. She also states that she had chest pressure all night last night, but it is now gone. Associated with shortness of breath. She has had diaphoresis with or without the chest pain. States that she has had a heart cath by Dr. Carter a month ago. She did not have any stents. pt was noted to have abn ekg and was seen by card --year-old female presented to ED with intractable vomiting and diarrhea for the past few days. Patient states she has been sick for the past 3 weeks. Patient denies abdominal pain. Patient states that she has been having some midsternal chest pain especially throughout last evening. Patient states shortness of breath does accompany the chest pain. Patient states will have episodes of diaphoresis with and without chest pain. Patient states the vomiting and the diarrhea have become worse this a.m. Patient denies fever. Patient does have history of coronary artery disease. Patient underwent last heart catheterization in February 2021, which revealed mild to moderate nonflow limiting coronary artery disease, hyperdynamic ventricular consistent with severe diastolic dysfunction combined with severe hypertensive heart disease. Patient noted to have severely elevated LVEDP consistent with diastolic dysfunction and severe hypertension heart disease. Patient is on standard care for hypertensive heart disease and CAD. Patient does have history of carotid artery stenosis. Bilateral ICA I noted 20 to 49%. Patient does have history of hypertension and hyperlipidemia. Patient is a smoker in which she smokes 1 pack/day. Patient does follow-up with his cardiology clinic. Last appointment was in April in which she stated she was under a lot of stress. Blood pressure was elevated. Bisoprolol had been increased to 10 mg daily. Last of echocardiogram was performed in February 2021 which revealed EF 55% with no regional wall motion abnormality with grade 1 diastolic dysfunction with a trace of mitral and tricuspid regurgitation. EKG was performed in ED which revealed patient noted with STEMI. Troponin had not been resulted at this time. Dr. Carter was notified. Dr. Carter spoke with patient regarding undergoing left heart catheterization due to STEMI. Discussed risk and benefits of undergoing left heart catheterization with patient. Patient verbalized understanding and is agreeable to procedure. Solar Sales Manager was notified. Pending on the results of the left heart catheterization, medication and treatment therapies may be recommended. Echo: Conclusion (03/08) 1. Mild biatrial enlargement, normal left ventricular size, mild concentric left ventricular hypertrophy, visually estimated ejection fraction 55% with no regional wall motion abnormality, grade 1 diastolic dysfunction seen without tissue Doppler evidence of raise left atrial pressure. 2. Mildly enlarged right ventricle with normal contractility. 3. Trace mitral and tricuspid regurgitation. 4. No significant pericardial effusion noted. [facility]:ANGIOGRAPHIC RESULTS (03/08) The left main artery Normal The
[2021-06-13] VITALS (7 sets, daily range): BP systolic 90–141; BP diastolic 55–79; PULSE 56–89; RESP 18–24; TEMP 36.6–36.8; O2SAT 92–98; BMI 26.3
--- NOTE | 2021-06-13 03:56 | PC.NURSE ---
No acute changes this shift. Pt is A/O x4. Pt can ambulate independently to bathroom to void. IV is patent and infusing NS @ 100ml/hr. R groin cath site dressing is C/D/I. Pt remains on room air with stats >90%. Pt denies any pain this shift. VSS, call light within reach, will continue to monitor.
[2021-06-13 06:28] LABS: Chloride 104 mmol/L (98-107); Sodium 140 mmol/L (136-145)
[2021-06-13 06:29] LABS: Potassium 4.4 mmoL/L (3.5-5.1)
[2021-06-13 06:32] LABS: Anion Gap 14.4 mEq/L (5-15); Blood Urea Nitrogen 16 mg/dl (7-17); Calcium 9.1 mg/dl (8.4-10.2); Carbon Dioxide 26 mmol/L (22.0-30.0); Creatinine Clearance Estimated 52 mL/min (50-200); Estimated Glomerular Filt Rate 50 ml/min (>60); GFR (African American) 60 ML/MIN (>60); Glucose 104 mg/dl (74-100)
--- NOTE | 2021-06-13 07:30 | XR_ITS ---
PROCEDURE: XR CHEST PORTABLE CLINICAL HISTORY: sob Shortness of air, current smoker COMPARISON: CR CXR CHEST(2 VIEWS-NOT PORTABLE) from 12/11/2014 CR CXR1 CHEST-PORTABLE from 04/29/[address] CHEST W/O CONTRAST from 11/25/2016 CR XR CHEST 2V from 06/06/2020 FINDINGS: The cardiomediastinal silhouette and pulmonary vascularity are within normal limits. The lungs are clear without infiltrates, suspicious nodules, or pleural effusions. No acute bony abnormalities. IMPRESSION: No acute findings. Dictated by: Aubrey Barrientos MD 06/13/2021 08:01 Aubrey Barrientos MD in [place] 06/13/2021 08:01
--- NOTE | 2021-06-13 08:29 | HMH.ACPN2 ---
Internal Medicine - PN: Subj *Date: 06/13/21 *Time: 12:25 Interval history: 65-year-old female patient sitting up in bed resting quietly with eyes closed, awakens to verbal stimuli. She denies any chest pain or shortness of breath during the night. She did undergo a cardiac catheterization yesterday with minimal blockage and recommendation: PLAN 1. Aspirin and Plavix for 1 year 2. LDL less than 55 3. Avoidance of tobacco products 4. Supportive care 5. Patient will require LifeVest prior to discharge home 6. Standard therapy for systolic dysfunction including Entresto plus carvedilol 7. At this time patient's LVEDP is normal and does not require diuretics (Per Rahul Carter MD) Exam Vital signs and Labs for Last 24 Hours: Temp Pulse Resp BP Pulse Ox 97.8 F 86 24 112/55 L 92 L 06/13/21 08:00 06/13/21 08:00 06/13/21 08:00 06/13/21 08:00 06/13/21 08:00 Laboratory Results - last 24 hr 06/12/21 11:23: WBC 15.4 H, RBC 5.73 H, Hgb 16.6 H, Hct 51.4 H, MCV 89.6, MCH 28.9, MCHC 32.2, RDW 14.0, Plt Count 315, MPV 9.9, Neut % (Auto) 81.5 H, Lymph % (Auto) 14.9, [place] % (Auto) 2.8, Eos % (Auto) 0.4, Baso % (Auto) 0.5, Neut # (Auto) 12.5 H, Lymph # (Auto) 2.3, [place] # (Auto) 0.4, Eos # (Auto) 0.1, Baso # (Auto) 0.1, Total Counted 100, Neutrophils % (Manual) 72, Band Neutrophils % 4.0, Lymphocytes % (Manual) 20, Monocytes % (Manual) 3, Basophils % (Manual) 1.0, Platelet Estimate Normal 06/12/21 11:23: Sodium 146 H, Potassium 5.4 H, Chloride 102, Carbon Dioxide 27, Anion Gap 22.4 H, BUN 21 H, Creatinine 1.20 H, Estimated Creat Clear 48, Estimated GFR 45 L, Est GFR ( Amer) 54 L, Glucose 159 H, Calcium 10.5 H, Total Bilirubin 0.8, AST 48 H, ALT 22, Alkaline Phosphatase 122, Total Protein 9.2 H D, Albumin 4.9, Globulin 4.3 H, Albumin/Globulin Ratio 1.1 06/12/21 11:23: Troponin I 2.69 H 06/12/21 13:06: SARS-CoV-2 (PCR) Not detected, Influenza A Untype (PCR) Not detected, Influenza Type B (PCR) Not detected 06/13/21 06:12: Sodium 140, Potassium 4.4, Chloride 104, Carbon Dioxide 26, Anion Gap 14.4, BUN 16, Creatinine 1.10 H, Estimated Creat Clear 52, Estimated GFR 50 L, Est GFR ( Amer) 60, Glucose 104 H D, Calcium 9.1 I & O for Last 24 hours: Intake & Output 06/10/21 06/11/21 06/12/21 06/13/21 23:59 23:59 23:59 23:59 Intake Total 488 / 488 1654 / 1654 Balance 488 / 488 1654 / 1654 Weight 143 lb 1 oz 143 lb 1 oz - Constitutional no acute distress - *Routine HEENT Exam Head: Present: normocephalic Eye: Present: EOMI ENT: Present: mucous membranes moist - *Routine Neck Exam Present: trachea midline. Absent: tracheal deviation - *Routine Respiratory Exam Present: CTA bilaterally. Absent: accessory muscle use - *Routine Cardiovascular Exam Present: RRR - *Routine Abdominal Exam Present: soft, normoactive bowel sounds. Absent: tenderness, firm - *Routine Extremities Exam Present: full ROM, pulses intact. Absent: cyanosis, clubbing, calf tenderness - *Routine Skin Exam Present: intact, dry, warm. Absent: cyanosis, erythema - *Routine Neurological Exam Present: alert, oriented X3. Absent: motor deficit, altered mental status - Routine Psychiatric Exam Present: normal affect, normal thought process, cooperative. Absent: homicidal ideation, visual hallucinations Assessment and Plan (1) ST elevation ID (STEMI) Status: Acute Qualifiers: Involved coronary artery: unspecified coronary artery Qualified Code(s): I21.3 - ST elevation (STEMI) myocardial infarction of unspecified site Category: Medical Code(s): I21.3 - ST elevation (STEMI) myocardial infarction of unspecified site (2) Gastroenteritis Status: Acute Category: Medical Code(s): K52.9 - Noninfective gastroenteritis and colitis, unspecified (3) ADIEL (obstructive sleep apnea) Status: Acute Category: Medical Code(s): G47.33 - Obstructive sleep apnea (adult) (pediatric) (4) TIA (transient ischemic att
--- NOTE | 2021-06-13 09:56 | HMH.PNCARD ---
Subjective Date: 06/13/21 Time: 09:56 Principal diagnosis: STEMI Interval history: 65-year-old white female in bed in no acute distress. She still describes some feeling of hot and cold sensation with some sweating intermittently. Denies any productive cough, difficulty urinating or burning and stinging with urination. White count yesterday was noted to be 15,000, will repeat today. Chest x-ray unremarkable Exam Vital signs and Labs for Last 24 Hours: Temp Pulse Resp BP Pulse Ox 97.8 F 86 24 112/55 L 92 L 06/13/21 08:00 06/13/21 08:00 06/13/21 08:00 06/13/21 08:00 06/13/21 08:00 Laboratory Results - last 24 hr 06/12/21 11:23: WBC 15.4 H, RBC 5.73 H, Hgb 16.6 H, Hct 51.4 H, MCV 89.6, MCH 28.9, MCHC 32.2, RDW 14.0, Plt Count 315, MPV 9.9, Neut % (Auto) 81.5 H, Lymph % (Auto) 14.9, [place] % (Auto) 2.8, Eos % (Auto) 0.4, Baso % (Auto) 0.5, Neut # (Auto) 12.5 H, Lymph # (Auto) 2.3, [place] # (Auto) 0.4, Eos # (Auto) 0.1, Baso # (Auto) 0.1, Total Counted 100, Neutrophils % (Manual) 72, Band Neutrophils % 4.0, Lymphocytes % (Manual) 20, Monocytes % (Manual) 3, Basophils % (Manual) 1.0, Platelet Estimate Normal 06/12/21 11:23: Sodium 146 H, Potassium 5.4 H, Chloride 102, Carbon Dioxide 27, Anion Gap 22.4 H, BUN 21 H, Creatinine 1.20 H, Estimated Creat Clear 48, Estimated GFR 45 L, Est GFR ( Amer) 54 L, Glucose 159 H, Calcium 10.5 H, Total Bilirubin 0.8, AST 48 H, ALT 22, Alkaline Phosphatase 122, Total Protein 9.2 H D, Albumin 4.9, Globulin 4.3 H, Albumin/Globulin Ratio 1.1 06/12/21 11:23: Troponin I 2.69 H 06/12/21 13:06: SARS-CoV-2 (PCR) Not detected, Influenza A Untype (PCR) Not detected, Influenza Type B (PCR) Not detected 06/13/21 06:12: Sodium 140, Potassium 4.4, Chloride 104, Carbon Dioxide 26, Anion Gap 14.4, BUN 16, Creatinine 1.10 H, Estimated Creat Clear 52, Estimated GFR 50 L, Est GFR ( Amer) 60, Glucose 104 H D, Calcium 9.1 I & O for Last 24 hours: Intake & Output 06/10/21 06/11/21 06/12/21 06/13/21 11:59 11:59 11:59 11:59 Intake Total 2621 Balance 2621 Weight 145 lb 143 lb 1 oz - Constitutional no acute distress - *Routine HEENT Exam Head: Present: normocephalic Eye: Present: EOMI, PERRL ENT: Present: mucous membranes moist - *Routine Neck Exam Present: supple. Absent: lymphadenopathy - *Routine Respiratory Exam Present: CTA bilaterally - *Routine Cardiovascular Exam Present: RRR - *Routine Abdominal Exam Present: soft, normoactive bowel sounds. Absent: tenderness - *Routine Extremities Exam Absent: cyanosis, clubbing, edema - *Routine Skin Exam Present: warm. Absent: rash - *Routine Neurological Exam Present: alert, oriented X3 Progress Note: A&P (1) ST elevation NM (STEMI) Status: Acute (2) Gastroenteritis Status: Acute (3) ADIEL (obstructive sleep apnea) Status: Acute (4) TIA (transient ischemic attack) Status: Acute (5) HTN (hypertension) Status: Chronic (6) Tobacco dependence syndrome Status: Chronic (7) HLD (hyperlipidemia) Status: Chronic (8) CAD (coronary artery disease) Status: Chronic (9) HHD (hypertensive heart disease) Status: Acute (10) Lumbar disc disease with radiculopathy Status: Acute (11) Lumbar foraminal stenosis Status: Acute (12) Lumbar spondylosis Status: Acute (13) Overweight (BMI 25.0-29.9) Status: Acute (14) COPD (chronic obstructive pulmonary disease) Status: Chronic (15) Tobacco user Status: Chronic (16) Hepatitis C Status: Suspected (17) Elevated left ventricular end-diastolic pressure (LVEDP) Status: Acute (18) Takotsubo cardiomyopathy Status: Acute (19) Renal insufficiency Status: Acute (20) Elevated white blood cell count, unspecified Status: Acute Assessment and Plan for All Diagnoses:: 1. Takotsubo cardiomyopathy with clinical presentation of STEMI status post cardiac catheterization with no intervent
[2021-06-13 10:08] LABS: Basophils # 0.1 K/mm3 (0-0.2); Basophils % 0.7 % (0.1-2.0); Eosinophils # 0.2 K/mm3 (0.0-0.4); Eosinophils % 1.7 % (0.1-12.0); Hematocrit 44.9 % (37.0-47.0); Lymphocytes # 4.1 K/mm3 (0.7-4.5); Lymphocytes % 32.2 % (10-50); Mean Corpuscular HGB Conc 32.5 g/dL (31.8-35.4); Mean Corpuscular Hemoglobin 29.5 pg (27.0-31.2); Mean Corpuscular Volume 90.7 fl (81-99); Monocytes # 0.7 K/mm3 (0.1-1.0); Monocytes % 5.3 % (1.7-9.3); Neutrophils # 7.6 K/mm3 (1.8-7.8); Platelet Count 253 K/mm3 (142-424); Red Blood Count 4.96 M/mm3 (4.20-5.40); Red Cell Distribution Width 13.2 % (11.5-17.5); White Blood Count 12.7 K/mm3 (4.8-10.8)
[2021-06-13 10:28] LABS: Chol/HDL Ratio 8.3 (1-3.5); Cholesterol 208 mg/dl (140-200); HDL Cholesterol 25 mg/dl (40-60); Triglycerides 207 mg/dl (30-150); VLDL Cholesterol 41 mg/dL (0-40)
[2021-06-13 10:37] LABS: Hemoglobin 14.6 g/dL (12.2-16.2)
[2021-06-13 10:38] LABS: Direct LDL Cholesterol 126.34 mg/dL (100-129)
--- NOTE | 2021-06-14 03:29 | PC.NURSE ---
Pt is A/O x4. pt has rested well this shift, denies any pain. Remains wearing the life vest she was fitted for today. Pt can ambulate to bathroom independently. Right groin cath site dressing is C/D/I. Pt remains on RA with stats >95%. Call light within reach, VSS will continue to monitor.
[2021-06-14 04:00] VITALS: BP 102/51; PULSE 58; RESP 18; TEMP 36.8; O2SAT 97
[2021-06-14 06:34] LABS: Basophils # 0.1 K/mm3 (0-0.2); Basophils % 0.7 % (0.1-2.0); Eosinophils # 0.3 K/mm3 (0.0-0.4); Eosinophils % 2.8 % (0.1-12.0); Hematocrit 41.4 % (37.0-47.0); Hemoglobin 13.5 g/dL (12.2-16.2); Lymphocytes # 4.1 K/mm3 (0.7-4.5); Lymphocytes % 34.3 % (10-50); Mean Corpuscular HGB Conc 32.5 g/dL (31.8-35.4); Mean Corpuscular Hemoglobin 29.2 pg (27.0-31.2); Mean Corpuscular Volume 89.8 fl (81-99); Mean Platelet Volume 10.3 fl (7.4-10.4); Monocytes # 0.7 K/mm3 (0.1-1.0); Monocytes % 5.5 % (1.7-9.3); Neutrophils # 6.8 K/mm3 (1.8-7.8); Neutrophils % 56.8 % (37.0-80.0); Platelet Count 238 K/mm3 (142-424); Red Blood Count 4.62 M/mm3 (4.20-5.40); Red Cell Distribution Width 13.7 % (11.5-17.5)
[2021-06-14 06:35] VITALS: BMI 26.4
[2021-06-14 06:56] LABS: Anion Gap 14.8 mEq/L (5-15); Blood Urea Nitrogen 16 mg/dl (7-17); Calcium 8.5 mg/dl (8.4-10.2); Carbon Dioxide 26 mmol/L (22.0-30.0); Chloride 102 mmol/L (98-107); Creatinine Clearance Estimated 52 mL/min (50-200); Estimated Glomerular Filt Rate 50 ml/min (>60); GFR (African American) 60 ML/MIN (>60); Glucose 115 mg/dl (74-100); Potassium 3.8 mmoL/L (3.5-5.1); Sodium 139 mmol/L (136-145)
[2021-06-14 08:00] VITALS: BP 103/55; PULSE 54; RESP 18; TEMP 36.6; O2SAT 98
[2021-06-14 09:00] VITALS: O2SAT 98
--- NOTE | 2021-06-14 09:18 | PC.NURSE ---
REPORT GIVEN TO AR HAIDER AT THIS TIME.
--- NOTE | 2021-06-14 10:15 | HMH.PNCARD ---
Subjective Date: 06/14/21 Time: 10:15 Principal diagnosis: STEMI Interval history: 65-year-old white female in bed in no acute distress. No complaints overnight. States she actually slept well last night. She is anxious to go home. LifeVest is in place. No significant arrhythmias overnight. Exam Vital signs and Labs for Last 24 Hours: Temp Pulse Resp BP Pulse Ox 97.9 F 54 L 18 103/55 L 98 06/14/21 08:00 06/14/21 08:00 06/14/21 08:00 06/14/21 08:00 06/14/21 08:00 Laboratory Results - last 24 hr 06/13/21 06:12: WBC 12.7 H, RBC 4.96, Hgb 14.6 D, Hct 44.9, MCV 90.7, MCH 29.5, MCHC 32.5, RDW 13.2, Plt Count 253, MPV 10.0, Neut % (Auto) 60.0, Lymph % (Auto) 32.2, [place] % (Auto) 5.3, Eos % (Auto) 1.7, Baso % (Auto) 0.7, Neut # (Auto) 7.6, Lymph # (Auto) 4.1, [place] # (Auto) 0.7, Eos # (Auto) 0.2, Baso # (Auto) 0.1 06/13/21 06:12: Triglycerides 207 H, Cholesterol 208 H, LDL Cholesterol Direct 126.34, VLDL Cholesterol 41 H, HDL Cholesterol 25 L, Cholesterol/HDL Ratio 8.3 H 06/14/21 06:06: WBC 12.0 H, RBC 4.62, Hgb 13.5, Hct 41.4, MCV 89.8, MCH 29.2, MCHC 32.5, RDW 13.7, Plt Count 238, MPV 10.3, Neut % (Auto) 56.8, Lymph % (Auto) 34.3, [place] % (Auto) 5.5, Eos % (Auto) 2.8, Baso % (Auto) 0.7, Neut # (Auto) 6.8, Lymph # (Auto) 4.1, [place] # (Auto) 0.7, Eos # (Auto) 0.3, Baso # (Auto) 0.1 06/14/21 06:06: Sodium 139, Potassium 3.8, Chloride 102, Carbon Dioxide 26, Anion Gap 14.8, BUN 16, Creatinine 1.10 H, Estimated Creat Clear 52, Estimated GFR 50 L, Est GFR ( Amer) 60, Glucose 115 H, Calcium 8.5 I & O for Last 24 hours: Intake & Output 06/11/21 06/12/21 06/13/21 06/14/21 11:59 11:59 11:59 11:59 Intake Total 262 / 2622 2603 / 2603 Balance 262 / 2621 2603 / 2603 Weight 145 lb 143 lb 1 oz 143 lb 5 oz - Constitutional no acute distress - *Routine HEENT Exam Head: Present: normocephalic Eye: Present: EOMI, PERRL ENT: Present: mucous membranes moist - *Routine Neck Exam Present: supple. Absent: lymphadenopathy - *Routine Respiratory Exam Present: CTA bilaterally - *Routine Cardiovascular Exam Present: RRR - *Routine Abdominal Exam Present: soft, normoactive bowel sounds. Absent: tenderness - *Routine Extremities Exam Absent: cyanosis, clubbing, edema - *Routine Skin Exam Present: warm. Absent: rash - *Routine Neurological Exam Present: alert, oriented X3 Progress Note: A&P (1) ST elevation MD (STEMI) Status: Acute (2) Gastroenteritis Status: Acute (3) ADIEL (obstructive sleep apnea) Status: Acute (4) TIA (transient ischemic attack) Status: Acute (5) HTN (hypertension) Status: Chronic (6) Tobacco dependence syndrome Status: Chronic (7) HLD (hyperlipidemia) Status: Chronic (8) CAD (coronary artery disease) Status: Chronic (9) HHD (hypertensive heart disease) Status: Acute (10) Lumbar disc disease with radiculopathy Status: Acute (11) Lumbar foraminal stenosis Status: Acute (12) Lumbar spondylosis Status: Acute (13) Overweight (BMI 25.0-29.9) Status: Acute (14) COPD (chronic obstructive pulmonary disease) Status: Chronic (15) Tobacco user Status: Chronic (16) Hepatitis C Status: Suspected (17) Elevated left ventricular end-diastolic pressure (LVEDP) Status: Acute (18) Takotsubo cardiomyopathy Status: Acute (19) Renal insufficiency Status: Acute Assessment and Plan for All Diagnoses:: Takotsubo cardiomyopathy secondary to recent viral illness. Initially treated as an ST elevation MD but with cardiac catheterization showed no significant coronary artery disease and no intervention required. Okay for discharge from cardiology standpoint Home medication recommendations Atorvastatin 20 mg daily Aspirin 81 mg daily Clopidogrel 75 mg daily Bisoprolol 10 mg daily Entresto 24/26 mg twice daily Lasix 40 mg daily Spironolactone 100 mg daily Diltiazem was discontinued in light of the cardio
[2021-06-14 12:00] VITALS: BP 115/57; PULSE 67; RESP 22; TEMP 36.5; O2SAT 97
--- NOTE | 2021-06-14 12:05 | HMH.DCSUM ---
General - General Admission date:: 06/12/21 Discharge date: 06/14/21 HPI HPI: this patient reported not feeling well and presented to the ed- states she has been sick for 3 weeks. Intractable vomiting and diarrhea. She says her diarrhea is continuous. Yellow without blood. Denies abdominal pain. She has felt feverish and has had excessive sweating, but has not taken her temperature. Her only recent travel is been within the state of [place]. No known exposures. She has not seen her primary care provider for her current symptoms. No medications taken for her symptoms. Complains of excessive thirst. States everything she drinks just go straight through her. She also states that she had chest pressure all night last night, but it is now gone. Associated with shortness of breath. She has had diaphoresis with or without the chest pain. States that she has had a heart cath by Dr. Carter a month ago. She did not have any stents. pt was noted to have abn ekg and was seen by card --year-old female presented to ED with intractable vomiting and diarrhea for the past few days. Patient states she has been sick for the past 3 weeks. Patient denies abdominal pain. Patient states that she has been having some midsternal chest pain especially throughout last evening. Patient states shortness of breath does accompany the chest pain. Patient states will have episodes of diaphoresis with and without chest pain. Patient states the vomiting and the diarrhea have become worse this a.m. Patient denies fever. Patient does have history of coronary artery disease. Patient underwent last heart catheterization in February 2021, which revealed mild to moderate nonflow limiting coronary artery disease, hyperdynamic ventricular consistent with severe diastolic dysfunction combined with severe hypertensive heart disease. Patient noted to have severely elevated LVEDP consistent with diastolic dysfunction and severe hypertension heart disease. Patient is on standard care for hypertensive heart disease and CAD. Patient does have history of carotid artery stenosis. Bilateral ICA I noted 20 to 49%. Patient does have history of hypertension and hyperlipidemia. Patient is a smoker in which she smokes 1 pack/day. Patient does follow-up with his cardiology clinic. Last appointment was in April in which she stated she was under a lot of stress. Blood pressure was elevated. Bisoprolol had been increased to 10 mg daily. Last of echocardiogram was performed in February 2021 which revealed EF 55% with no regional wall motion abnormality with grade 1 diastolic dysfunction with a trace of mitral and tricuspid regurgitation. EKG was performed in ED which revealed patient noted with STEMI. Troponin had not been resulted at this time. Dr. Carter was notified. Dr. Carter spoke with patient regarding undergoing left heart catheterization due to STEMI. Discussed risk and benefits of undergoing left heart catheterization with patient. Patient verbalized understanding and is agreeable to procedure. [employer] was notified. Pending on the results of the left heart catheterization, medication and treatment therapies may be recommended. Echo: Conclusion (03/08) 1. Mild biatrial enlargement, normal left ventricular size, mild concentric left ventricular hypertrophy, visually estimated ejection fraction 55% with no regional wall motion abnormality, grade 1 diastolic dysfunction seen without tissue Doppler evidence of raise left atrial pressure. 2. Mildly enlarged right ventricle with normal contractility. 3. Trace mitral and tricuspid regurgitation. 4. No significant pericardial effusion noted. LHC:ANGIOGRAPHIC RESULTS (03/08) The left main artery Normal The left anterior descending artery Has proximal 10 to 20% concentric stenosis followed by mid vessel 30 to 40% stenosis with an additional mid vessel 30% stenosis along a tortuous bend The circumflex artery [place]
== END 2021-06-14 13:05 | disposition home or self-care (01) | DRG 287 ==
LOC: ER 13:13 → CATHLAB 13:21 → 2ND 13:38
PROVIDERS: Internal Medicine; Nurse Practitioner Family; Physician Assistant; Admitting Provider Emergency Medicine; Emergency Provider Emergency Medicine; PCP Emergency Medicine; Visit Provider Emergency Medicine
DX: I42.9 Cardiomyopathy, unspecified; I25.10 Atherosclerotic heart disease of native coronary artery without angina pectoris; F17.210 Nicotine dependence, cigarettes, uncomplicated; I51.81 Takotsubo syndrome; B19.20 Unspecified viral hepatitis C without hepatic coma; J44.9 Chronic obstructive pulmonary disease, unspecified; M51.16 Intervertebral disc disorders with radiculopathy, lumbar region; M99.83 Other biomechanical lesions of lumbar region; M47.816 Spondylosis without myelopathy or radiculopathy, lumbar region; I12.9 Hypertensive chronic kidney disease with stage 1 through stage 4 chronic kidney disease, or unspecified chronic kidney disease; K52.9 Noninfective gastroenteritis and colitis, unspecified; N18.2 Chronic kidney disease, stage 2 (mild); Z20.822 Contact with and (suspected) exposure to COVID-19; Z86.73 Personal history of transient ischemic attack (TIA), and cerebral infarction without residual deficits
CPT/HCPCS: 36415; 71045; 80048; 80053; 80061; 84484; 85007; 85025; 93005; 93308; 93458; 99152; 99283; C1725; C1769; J1644; Q9967; U0003

== ENCOUNTER 2021-06-29 11:47 | Emergency (ER) | payer MEDICARE, SELFPAY ==
[2021-06-29] VITALS (9 sets, daily range): BP systolic 130–172; BP diastolic 54–111; PULSE 60; RESP 15–23; TEMP 36.8; O2SAT 98; BMI 26.5; BMI 30.9
--- NOTE | 2021-06-29 11:52 | ECG_ITS ---
APPROVED REPORT Exam: Resting ECG HR:65 bpm ECG Measurements Heart Rate 65 AXES OH 132 P 46 QRSd 84 QRS -18 QT 484 T 180 QTc 503 Conclusion Normal sinus rhythm Anterior infarct, age undetermined Marked T wave abnormality, consider inferolateral ischemia Abnormal ECG Electronically signed by : Rafy Weston MD 06/30/2021 16:03:00
--- NOTE | 2021-06-29 12:00 | XR_ITS ---
PROCEDURE INFORMATION: Exam: XR Chest Exam date and time: 06/29/2021 12:00 PM Age: 65 years old Clinical indication: Other: Nausea , vomiting , diarrhea; Additional info: N/v TECHNIQUE: Imaging protocol: XR of the chest. Views: 1 view. COMPARISON: CR XR CHEST PORTABLE 06/13/2021 7:34 AM FINDINGS: Lungs: Unremarkable. No consolidation. Pleural spaces: Unremarkable. No pleural effusion. No pneumothorax. Heart/Mediastinum: Unremarkable. No cardiomegaly. Bones/joints: Unremarkable. IMPRESSION: No acute findings.
[2021-06-29 12:07] LABS: Basophils % 0.2 % (0.1-2.0); Eosinophils % 0.1 % (0.1-12.0); Hematocrit 51.1 % (37.0-47.0); Hemoglobin 16.3 g/dL (12.2-16.2); Lymphocytes # 1.9 K/mm3 (0.7-4.5); Lymphocytes % 12.5 % (10-50); Mean Corpuscular Hemoglobin 29.7 pg (27.0-31.2); Mean Corpuscular Volume 92.7 fl (81-99); Monocytes # 0.4 K/mm3 (0.1-1.0); Monocytes % 2.6 % (1.7-9.3); Neutrophils # 12.8 K/mm3 (1.8-7.8); Neutrophils % 84.6 % (37.0-80.0); Platelet Count 244 K/mm3 (142-424); Red Blood Count 5.51 M/mm3 (4.20-5.40); Red Cell Distribution Width 13.4 % (11.5-17.5); White Blood Count 15.2 K/mm3 (4.8-10.8)
[2021-06-29 12:08] LABS: Chloride 99 mmol/L (98-107)
[2021-06-29 12:09] LABS: Potassium 4.3 mmoL/L (3.5-5.1); Sodium 147 mmol/L (136-145)
[2021-06-29 12:10] LABS: MANUAL DIFFERENTIAL MANUAL DIFFERENTIAL (MANUAL DIFF)
[2021-06-29 12:12] LABS: Anion Gap 28.3 mEq/L (5-15); Blood Urea Nitrogen 36 mg/dl (7-17); Calcium 9.6 mg/dl (8.4-10.2); Carbon Dioxide 24 mmol/L (22.0-30.0); Creatinine Clearance Estimated 44 mL/min (50-200); Estimated Glomerular Filt Rate 41 ml/min (>60); GFR (African American) 50 ML/MIN (>60); Glucose 186 mg/dl (74-100)
[2021-06-29 12:20] LABS: Influenza A, PCR Not Detected (NotDetected); Influenza B, PCR Not Detected (NotDetected)
[2021-06-29 12:25] LABS: Lymphocytes % 11 % (10-50); Monocytes % 6 % (2-9); Neutrophils % 83 % (42-76); Total Cells Counted 100
[2021-06-29 12:26] LABS: Platelet Estimate Normal; RBC Morphology Normal
[2021-06-29 12:32] LABS: Troponin I < 0.01 ng/ml (0.00-0.034)
[2021-06-29 12:41] LABS: Coronavirus 19, PCR Detected (NotDetected)
[2021-06-29 12:46] LABS: NT Pro Brain Natriuretic Pep. 19600 pg/mL (0-125)
--- NOTE | 2021-06-29 13:15 | HMH.EDGENADL ---
ED Disposition Clinical Impression: COVID-19 Disposition: Home, Self-Care Condition on Discharge: Good Instructions: DI for Diarrhea and Traveler's Diarrhea -- Adult, DI for Diarrhea and Traveler's Diarrhea -- Child, DI for Nausea -- Adult, DI for Nausea -- Child Referrals: Ronald Gr MD [Primary Care Provider] - - Critical Care Critical Care Time: No Attestation: On 06/29/21, the high probability of a clinically significant, sudden or life threatening deterioration of the following system(s) required my full and direct attention, intervention and personal management. The time I documented below is in addition to time spent performing reported procedures but includes the following listed in this critical care notation. Medical Decision Making - Medical Records Medical records reviewed: Yes: I reviewed the patient's medical records. - Honorio Inquiry Pt receiving controlled substance: No Vital Signs: 06/29/21 11:47 06/29/21 12:39 06/29/21 13:01 Temperature 98.2 F Temperature Source Oral Pulse Rate [Radial] 60 Respiratory Rate 18 18 15 Blood Pressure 134/63 170/111 H Blood Pressure [Right Arm] 135/84 Blood Pressure Mean 86 130 Blood Pressure Mean [Right Arm] 101 Blood Pressure Position [Right Arm] Sitting 02 Sat by Pulse Oximetry 98 Oxygen Delivery Method Room Air 06/29/21 13:30 06/29/21 14:01 06/29/21 14:30 Temperature Temperature Source Pulse Rate [Radial] Respiratory Rate 23 18 15 Blood Pressure 172/73 H 135/56 L 141/63 H Blood Pressure [Right Arm] Blood Pressure Mean 128 84 94 Blood Pressure Mean [Right Arm] Blood Pressure Position [Right Arm] 02 Sat by Pulse Oximetry Oxygen Delivery Method - Lab Data Lab Results 06/29/21 11:20: WBC 15.2 H, RBC 5.51 H, Hgb 16.3 H, Hct 51.1 H, MCV 92.7, MCH 29.7, MCHC 32.0, RDW 13.4, Plt Count 244, MPV 11.0 H, Neut % (Auto) 84.6 H, Lymph % (Auto) 12.5, [place] % (Auto) 2.6, Eos % (Auto) 0.1, Baso % (Auto) 0.2, Neut # (Auto) 12.8 H, Lymph # (Auto) 1.9, [place] # (Auto) 0.4, Eos # (Auto) 0.0, Baso # (Auto) 0.0, Total Counted 100, Neutrophils % (Manual) 83 H, Lymphocytes % (Manual) 11, Monocytes % (Manual) 6, Platelet Estimate Normal, RBC Morphology Normal 06/29/21 11:20: Sodium 147 H, Potassium 4.3, Chloride 99, Carbon Dioxide 24, Anion Gap 28.3 H, BUN 36 H, Creatinine 1.30 H, Estimated Creat Clear 44, Estimated GFR 41 L, Est GFR ( Amer) 50 L, Glucose 186 H, Calcium 9.6, Troponin I < 0.01 06/29/21 11:20: NT-Pro-B Natriuret Pep 80187 H 06/29/21 11:51: SARS-CoV-2 (PCR) Detected A, Influenza A Untype (PCR) Not detected, Influenza Type B (PCR) Not detected 06/29/21 16:28: Troponin I 0.02 Result diagrams: 06/29/21 11:20 06/29/21 11:20 Orders (Tests/Meds): ED MEDICATIONS Discontinued Medications Generic Name Dose Route Start Last Admin Trade Name Freq PRN Reason Stop Dose Admin Ondansetron HCl 4 mg 06/29/21 14:00 06/29/21 14:17 Ondansetron 4mg/2ml Vial IV 06/29/21 14:01 4 mg ONCE ONE Administration ORDERS Category Date Time Status Troponin I Q3H Lab 06/29/21 18:15 Ordered Medical Decision Narrative: 65-year-old female presents the ED today with viral URI symptoms after ACS last week. The chest pain. Differential diagnosis includes pneumonia, pericarditis, post LA complication. Patient is well-appearing on initial evaluation in no acute distress with stable vital signs. Will further evaluate with CBC CMP 0 and 3-hour troponin, EKG, chest x-ray. Labs with no significant abnormalities, first troponin less than 0.01, second troponin 0.02, no significant delta. Chest x-ray with atypical viral pattern, no focal consolidation or pneumonia. Patient's coronavirus test is still positive, patient was unvaccinated, no oxygen requirement, results of patient's lab and imaging work-up delivered to pt. Given no significant delta and no evidence of ischemia, pt can be discharged. Given return preca
--- NOTE | 2021-06-29 13:27 | PC.NURSE ---
Pt's brother called and set up a password. Password is Stephanie. Pt is agreeable to give brother information
[2021-06-29 16:56] LABS: Troponin I 0.02 ng/ml (0.00-0.034)
--- NOTE | 2021-06-29 17:49 | PC.NURSE ---
Daughter called requesting information about pt, pt refused any information be given to daughter, informed daughter who became upset stating that wasnt right and she was coming down here. House informed of situation
== END 2021-06-29 17:52 | disposition home or self-care (01) ==
PROVIDERS: Emergency Provider Student in an Organized Health Care Education/Training Program; PCP Emergency Medicine
DX: U07.1 COVID-19 (principal); Z87.891 Personal history of nicotine dependence
CPT/HCPCS: 71045; 80048; 83880; 84484; 85007; 85025; 93005; 96374; 99283; C9803; J2405; U0003; U0005

== ENCOUNTER 2021-07-11 12:57 | Inpatient (IN) | payer MEDICARE, SELFPAY ==
[2021-07-11] VITALS (12 sets, daily range): BP systolic 119–164; BP diastolic 53–88; PULSE 60–92; RESP 18–20; TEMP 36.5–36.7; O2SAT 94–97; BMI 28.1; BMI 30.3
--- NOTE | 2021-07-11 13:38 | HMH.EDGENADL ---
ED Disposition Clinical Impression: DONNIE (acute kidney injury), Dehydration, Gastroenteritis Disposition: Admitted as Observation Condition on Discharge: Fair - Critical Care Critical Care Time: No Attestation: On 07/11/21, the high probability of a clinically significant, sudden or life threatening deterioration of the following system(s) required my full and direct attention, intervention and personal management. The time I documented below is in addition to time spent performing reported procedures but includes the following listed in this critical care notation. Medical Decision Making - Honorio Inquiry Pt receiving controlled substance: No Vital Signs: 07/11/21 12:57 07/11/21 13:32 Temperature 97.8 F Temperature Source Oral Pulse Rate 92 H Pulse Rate [Right Radial] 88 Respiratory Rate 18 18 Blood Pressure 164/88 H Blood Pressure [Left Arm] 126/81 Blood Pressure Mean 113 Blood Pressure Mean [Left Arm] 96 Blood Pressure Source [Left Arm] Automatic Cuff Blood Pressure Position [Left Arm] Sitting 02 Sat by Pulse Oximetry 97 95 Oxygen Delivery Method Room Air - Lab Data Lab Results 07/11/21 13:35: SARS-CoV-2 (PCR) Detected A, Influenza A Untype (PCR) Not detected, Influenza Type B (PCR) Not detected 07/11/21 14:00: WBC 13.9 H, RBC 5.42 H, Hgb 15.8, Hct 50.0 H, MCV 92.2, MCH 29.1, MCHC 31.6 L, RDW 14.0, Plt Count 287, MPV 10.4, Neut % (Auto) 74.3, Lymph % (Auto) 19.5, [place] % (Auto) 4.6, Eos % (Auto) 0.7, Baso % (Auto) 0.9, Neut # (Auto) 10.3 H, Lymph # (Auto) 2.7, [place] # (Auto) 0.6, Eos # (Auto) 0.1, Baso # (Auto) 0.1 07/11/21 14:00: Sodium 143, Potassium 4.7, Chloride 103, Carbon Dioxide 15 L, Anion Gap 29.7 H, BUN 41 H, Creatinine 3.40 H, Estimated Creat Clear 18, Estimated GFR 14 L*, Est GFR ( Amer) 16 L*, Glucose 113 H, Calcium 9.5, Troponin I 0.07 H 07/11/21 14:00: Total Bilirubin 0.7, Direct Bilirubin 0.3, Conjugated Bilirubin 0.0, Indirect Bilirubin 0.4, Unconjugated Bilirubin 0.4, AST 25, ALT 18, Alkaline Phosphatase 90, Total Protein 8.5 H, Albumin 4.9, Lipase 145 Result diagrams: 07/11/21 14:00 07/11/21 14:00 Orders (Tests/Meds): ED MEDICATIONS Discontinued Medications Generic Name Dose Route Start Last Admin Trade Name Freq PRN Reason Stop Dose Admin Sodium Chloride 1,000 mls @ 999 mls/hr 07/11/21 13:45 07/11/21 13:49 Sod Chlor 0.9% 1000ml Bag IV 07/11/21 14:45 999 mls/hr .Q1H1M OFE Administration Ondansetron HCl 4 mg 07/11/21 13:42 07/11/21 13:49 Ondansetron 4mg/2ml Vial IV 07/11/21 13:43 4 mg ONCE ONE Administration ORDERS Category Date Time Status Diarrhea 6-11 Panel, Cdiff PCR Stat Lab 07/11/21 13:53 Ordered Troponin I Q3H Lab 07/11/21 16:45 Ordered Troponin I Q3H Lab 07/11/21 19:45 Ordered - Radiology Data #1 Image(s): Chest Image Reviewed: Yes I reviewed the patient's radiology image, Yes I have reviewed radiologist's interpretation PROCEDURE: XR CHEST PORTABLE CLINICAL HISTORY: WEAKNESS COMPARISON: CT [facility] CT CHEST W/O CONTRAST from 11/25/2016 CR XR CHEST 2V from 06/06/2020 CR XR CHEST PORTABLE from 06/13/2021 CR XR CHEST PORTABLE from 06/29/2021 FINDINGS: The cardiomediastinal silhouette and pulmonary vascularity are within normal limits. The lungs are clear without infiltrates, suspicious nodules, or pleural effusions. No acute bony abnormalities. IMPRESSION: No acute findings. Dictated by: Aubrey Barrientos MD 07/11/2021 15:20 Aubrey Barrientos MD in [place] 07/11/2021 15:20 - ECG Data Tracing #1 EKG interpreted by Farrukh Tomlinson MD: Rhythm: sinus Rate: 74 [place]: normal Ectopy: none Conduction: normal ST Segment Changes: none T Wave Changes: Marked inversion diffusely, no change from most recent EKG of 06/29/2021 Q Waves: none - Physician Consults Physician Consulted: Matt Time: 14:39 Reason -: Admission Comment/Response: Agrees to admit the patient to the hospital. Mikael lees
--- NOTE | 2021-07-11 13:42 | XR_ITS ---
PROCEDURE: XR CHEST PORTABLE CLINICAL HISTORY: WEAKNESS COMPARISON: CT [facility]WO CT CHEST W/O CONTRAST from 11/25/2016 CR XR CHEST 2V from 06/06/2020 CR XR CHEST PORTABLE from 06/13/2021 CR XR CHEST PORTABLE from 06/29/2021 FINDINGS: The cardiomediastinal silhouette and pulmonary vascularity are within normal limits. The lungs are clear without infiltrates, suspicious nodules, or pleural effusions. No acute bony abnormalities. IMPRESSION: No acute findings. Dictated by: Aubrey Barrientos MD 07/11/2021 15:20 Aubrey Barrientos MD in [place] 07/11/2021 15:20
[2021-07-11 14:05] LABS: Influenza A, PCR Not Detected (NotDetected); Influenza B, PCR Not Detected (NotDetected)
[2021-07-11 14:16] LABS: Basophils # 0.1 K/mm3 (0-0.2); Basophils % 0.9 % (0.1-2.0); Eosinophils # 0.1 K/mm3 (0.0-0.4); Eosinophils % 0.7 % (0.1-12.0); Hemoglobin 15.8 g/dL (12.2-16.2); Lymphocytes # 2.7 K/mm3 (0.7-4.5); Lymphocytes % 19.5 % (10-50); Mean Corpuscular HGB Conc 31.6 g/dL (31.8-35.4); Mean Corpuscular Hemoglobin 29.1 pg (27.0-31.2); Mean Corpuscular Volume 92.2 fl (81-99); Mean Platelet Volume 10.4 fl (7.4-10.4); Monocytes # 0.6 K/mm3 (0.1-1.0); Monocytes % 4.6 % (1.7-9.3); Neutrophils # 10.3 K/mm3 (1.8-7.8); Neutrophils % 74.3 % (37.0-80.0); Platelet Count 287 K/mm3 (142-424); Red Blood Count 5.42 M/mm3 (4.20-5.40); White Blood Count 13.9 K/mm3 (4.8-10.8)
[2021-07-11 14:22] LABS: Alanine Aminotransferase 18 U/L (12-78); Albumin Level 4.9 g/dl (3.5-5.0); Alkaline Phosphatase 90 U/L (38-126); Anion Gap 29.7 mEq/L (5-15); Aspartate Amino Transferase 25 U/L (14-36); Bilirubin,Direct 0.3 mg/dl (0.0-0.4); Bilirubin,Indirect 0.4 mg/dL (0.0-0.9); Bilirubin,Total 0.7 mg/dl (0.2-1.3); Bilirubin,Unconjugated 0.4 mg/dL (0.0-1.1); Blood Urea Nitrogen 41 mg/dl (7-17); Calcium 9.5 mg/dl (8.4-10.2); Carbon Dioxide 15 mmol/L (22.0-30.0); Chloride 103 mmol/L (98-107); Creatinine Clearance Estimated 18 mL/min (50-200); Estimated Glomerular Filt Rate 14 ml/min (>60); GFR (African American) 16 ML/MIN (>60); Glucose 113 mg/dl (74-100); Lipase 145 U/L (23-300); Potassium 4.7 mmoL/L (3.5-5.1); Sodium 143 mmol/L (136-145); Total Protein,Serum 8.5 g/dl (6.3-8.2)
[2021-07-11 14:29] LABS: Coronavirus 19, PCR Detected (NotDetected)
[2021-07-11 14:34] LABS: Troponin I 0.07 ng/ml (0.00-0.034)
--- NOTE | 2021-07-11 14:35 | PC.NURSE ---
Dr Tomlinson speaking to Dr Gutierrez
--- NOTE | 2021-07-11 14:39 | ECG_ITS ---
APPROVED REPORT Exam: Resting ECG HR:74 bpm ECG Measurements Heart Rate 74 AXES AL 132 P 48 QRSd 80 QRS 12 QT 462 T 175 QTc 512 Conclusion Normal sinus rhythm Possible Left atrial enlargement Marked T wave abnormality, consider anterolateral ischemia Prolonged QT Abnormal ECG Electronically signed by : Rafy Weston MD 07/12/2021 17:38:07
--- NOTE | 2021-07-11 14:40 | PC.NURSE ---
Spoke with Erika in care management about needing a bed for admission
--- NOTE | 2021-07-11 15:14 | PC.NURSE ---
1444 bed assignment requested moises Duncan, all staff notified
--- NOTE | 2021-07-11 15:36 | HMH.PHAINT ---
HOME MEDICATION RECONCILIATION COMPLETE. ALL INFO GATHERED FROM SURESCRIPTS AND PREVIOUS DISCHARGE
--- NOTE | 2021-07-11 19:22 | HMH.HP ---
*Admission Date: 07/11/21 *Chief complaint: diarrhea, acute kidney injury *History of present illness: Is a 65-year-old white female, and of Dr. Gr. She presented to the emergency room with copious diarrhea for the last week or so. She had markedly abnormal labs with a creatinine of 3.4, elevated above her baseline of 1.3. Her anion gap was 29.7, possibly reflecting a uremic acidosis. She was diagnosed with Covid on 06/29/2021. She has had several sick contacts at home. Patient has been cathed in the fairly recent past. At the time of cath she was diagnosed with a Takotsubo cardiomyopathy. Renal function precluded CT with contrast. Her abdominal exam is benign, white count slightly elevated at 13.9. Patient has a decent appetite, is eating and drinking all amounts. She is being hydrated at a rate of 150. Chest x-ray was normal on admission, no infiltrative process was noted. [facility] History Medical History: Reports:: Anxiety, Chronic Obstructive Pulmonary Disease (COPD), Coronary Artery Disease, Cerebrovascular Accident, Depression, Hyperlipidemia, Hypertension, Myocardial Infarction, Osteoporosis, Palpitations, Valvular Heart Disease Denies:: Cancer, Diabetes Mellitus Type 1, Diabetes Mellitus Type 2, Internal Pacemaker, MRSA, Seizures *Have you ever received a pneumonia vaccine?: Yes *Have you received a flu vaccine this season?: Yes Other Medical History: Reports: Arthritis, Fibromyalgia, Liver Disease, Osteoporosis, Other (DDD) Other Surgeries: Yes: Colonoscopy, Tubal Ligation, Other. No: Pacemaker Amputation: No Fractures: No - *Social History Smoking Status: Former smoker # Packs/Day (cigarettes): 1 Alcohol Intake: never Substance Use Type: denies use *Occupational Status:: retired Housing: house Household Members: family *Travel in the last 8 weeks: None - Psychiatric History Pschychiatric History:: Reports:: Anxiety, Depression Family Hx:: Cancer, Diabetes Review of Systems - Constitutional Reports anorexia, Reports chills, Reports malaise, Reports weakness - Eyes Denies change in vision - ENT Denies abnormal hearing - *Cardiovascular Denies chest pain, Denies leg swelling - *Respiratory Denies cough, Denies shortness of breath - *Gastrointestinal Reports change in stools, Reports cramping, Reports loose stools, Reports loose stools, Reports constant urge to pass stool, Denies coffee ground vomit, Denies difficulty swallowing, Denies black, tarry stools - *Genitourinary Denies painful urination - *Musculoskeletal Reports muscle weakness - Integumentary/Breasts Denies yellowing of the skin - *Neurologic Denies confusion - Psychiatric Denies confusion - Endocrine Reports cold intolerance, Denies increased thirst, Denies increased hunger - Hematologic/Lymphatic Denies easy bleeding, Denies easy bruising - Allergic/Immunologic Denies hives Meds Home Medications Medication Instructions Recorded Confirmed Type escitalopram oxalate 20 mg tablet 20 mg PO DAILY tab 03/04/21 07/11/21 History loratadine 10 mg tablet 10 mg PO DAILY tab 03/04/21 07/11/21 History Furosemide [Lasix 40mg tablet] 40 mg PO DAILY 03/08/21 07/11/21 History Omeprazole 20 mg PO DAILY 03/08/21 07/11/21 History Spironolactone 100 mg PO DAILY 03/08/21 07/11/21 History Aspirin [Aspirin 81mg EC Tab] 81 mg PO DAILY 06/12/21 07/11/21 History Atorvastatin Calcium [Lipitor 20mg 20 mg PO HS 06/12/21 07/11/21 History Tab] Diclofenac Sodium [Voltaren 4 g TOPICAL QIDP PRN 06/12/21 07/11/21 History Arthritis Pain] Ipratropium/Albuterol Sulfate 2 puff IH QID 06/12/21 07/11/21 History [Combivent Respimat Inh] Oxybutynin Chloride [Oxybutynin 10 mg PO DAILY 06/12/21 07/11/21 History Chloride ER] clonazepam 0.5 mg tablet 0.5 mg PO BID #60 tab 06/18/21 07/11/21 Rx gabapentin 800 mg tablet 800 mg PO TID #90 tab 06/18/21 07/11/21 Rx hydrocodone 7.5 mg-acetaminophen 1 tab PO TIDP PRN #90 tab 06/18/21
[2021-07-12] VITALS: BP 121/73; PULSE 71; RESP 16; TEMP 36.4; O2SAT 93
--- NOTE | 2021-07-12 03:36 | PC.NURSE ---
Pt is A/O x4. Pt remains on RA with O2 stats >90%. Pt denies any pain t/o shift. IV is patent infusing NS @ 150ml/hr. Call light within reach, will continue to monitor.
[2021-07-12 04:00] VITALS: BP 116/66; PULSE 83; RESP 18; TEMP 36.5; O2SAT 95
[2021-07-12 04:32] VITALS: BMI 26.9
[2021-07-12 06:49] LABS: Basophils # 0.1 K/mm3 (0-0.2); Eosinophils # 0.3 K/mm3 (0.0-0.4); Eosinophils % 2.3 % (0.1-12.0); Lymphocytes # 4.2 K/mm3 (0.7-4.5); Mean Corpuscular HGB Conc 32.2 g/dL (31.8-35.4); Mean Corpuscular Hemoglobin 29.6 pg (27.0-31.2); Mean Platelet Volume 10.7 fl (7.4-10.4); Monocytes # 0.6 K/mm3 (0.1-1.0); Monocytes % 5.5 % (1.7-9.3); Neutrophils # 5.6 K/mm3 (1.8-7.8); Neutrophils % 52.2 % (37.0-80.0); Platelet Count 250 K/mm3 (142-424); Red Blood Count 4.56 M/mm3 (4.20-5.40); Red Cell Distribution Width 13.9 % (11.5-17.5); White Blood Count 10.7 K/mm3 (4.8-10.8)
[2021-07-12 07:01] LABS: Anion Gap 19.7 mEq/L (5-15); Blood Urea Nitrogen 41 mg/dl (7-17); Calcium 8.1 mg/dl (8.4-10.2); Carbon Dioxide 18 mmol/L (22.0-30.0); Chloride 105 mmol/L (98-107); Creatinine Clearance Estimated 26 mL/min (50-200); Estimated Glomerular Filt Rate 24 ml/min (>60); GFR (African American) 29 ML/MIN (>60); Glucose 108 mg/dl (74-100); Potassium 3.7 mmoL/L (3.5-5.1); Sodium 139 mmol/L (136-145)
[2021-07-12 08:00] VITALS: BP 117/60; PULSE 68; RESP 18; TEMP 36.5; O2SAT 99
[2021-07-12 08:10] LABS: Hemoglobin 13.5 g/dL (12.2-16.2)
--- NOTE | 2021-07-12 08:29 | P.CONPHA_ITS ---
[facility] Pharmacy VTE Monitoring - Patient Demographics Admission date: 07/11/21 Report Date: 07/12/21 Time: 08:29 Allergies/Adverse Reactions: Patient Allergies acetaminophen [From DARVOCET-N] Allergy (Unknown, Verified 07/12/21 07:56) Unknown allergy reaction codeine [CODEINE] Allergy (Unknown, Verified 07/12/21 07:56) Unknown allergy reaction propoxyphene [From DARVOCET-N] Allergy (Unknown, Verified 07/12/21 07:56) Unknown allergy reaction tomato Adverse Reaction (Mild, Verified 07/12/21 07:56) Gastrointestinal Upset Height: 1.52 m Weight: 62.341 kg Patient Problems: Current Active Problems Gastroenteritis (Acute) COVID-19 (Acute) DONNIE (acute kidney injury) (Acute) Dehydration (Acute) Diarrhea (Acute) HTN (hypertension) (Chronic) COPD (chronic obstructive pulmonary disease) (Chronic) Anxiety (Chronic) Tobacco user (Chronic) - VTE Risk Labs: VTE Related Lab Results Hgb 13.5 g/dL (12.2-16.2) D 07/12/21 06:17 Hct 42.0 % (37.0-47.0) 07/12/21 06:17 Plt Count 250 K/mm3 (142-424) 07/12/21 06:17 BUN 41 mg/dl (7-17) H 07/12/21 06:17 Creatinine 2.10 mg/dl (0.52-1.04) H D 07/12/21 06:17 Estimated Creat Clear 26 mL/min (50-200) 07/12/21 06:17 - Prophylaxis VTE Prophylaxis Ordered?: Yes Types of VTE Prophylaxis: TEDS Knee High Location of Applied Device: Bilateral Lower Extremeties
--- NOTE | 2021-07-12 09:10 | HMH.ACPN2 ---
Internal Medicine - PN: Subj *Date: 07/12/21 *Time: 09:56 Interval history: 65-year-old female patient resting quietly in bed with eyes closed, she awakens to verbal stimuli. She denies any nausea/vomiting/diarrhea during the night, and reports she is feeling better today. Exam Vital signs and Labs for Last 24 Hours: Temp Pulse Resp BP Pulse Ox 97.7 F 68 18 117/60 99 07/12/21 08:00 07/12/21 08:00 07/12/21 08:00 07/12/21 08:00 07/12/21 08:00 Laboratory Results - last 24 hr 07/11/21 13:35: SARS-CoV-2 (PCR) Detected A, Influenza A Untype (PCR) Not detected, Influenza Type B (PCR) Not detected 07/11/21 14:00: WBC 13.9 H, RBC 5.42 H, Hgb 15.8, Hct 50.0 H, MCV 92.2, MCH 29.1, MCHC 31.6 L, RDW 14.0, Plt Count 287, MPV 10.4, Neut % (Auto) 74.3, Lymph % (Auto) 19.5, [place] % (Auto) 4.6, Eos % (Auto) 0.7, Baso % (Auto) 0.9, Neut # (Auto) 10.3 H, Lymph # (Auto) 2.7, [place] # (Auto) 0.6, Eos # (Auto) 0.1, Baso # (Auto) 0.1 07/11/21 14:00: Sodium 143, Potassium 4.7, Chloride 103, Carbon Dioxide 15 L, Anion Gap 29.7 H, BUN 41 H, Creatinine 3.40 H, Estimated Creat Clear 18, Estimated GFR 14 L*, Est GFR ( Amer) 16 L*, Glucose 113 H, Calcium 9.5, Troponin I 0.07 H 07/11/21 14:00: Total Bilirubin 0.7, Direct Bilirubin 0.3, Conjugated Bilirubin 0.0, Indirect Bilirubin 0.4, Unconjugated Bilirubin 0.4, AST 25, ALT 18, Alkaline Phosphatase 90, Total Protein 8.5 H, Albumin 4.9, Lipase 145 07/12/21 06:17: WBC 10.7, RBC 4.56, Hgb 13.5 D, Hct 42.0, MCV 92.0, MCH 29.6, MCHC 32.2, RDW 13.9, Plt Count 250, MPV 10.7 H, Neut % (Auto) 52.2, Lymph % (Auto) 39.0, [place] % (Auto) 5.5, Eos % (Auto) 2.3, Baso % (Auto) 1.0, Neut # (Auto) 5.6, Lymph # (Auto) 4.2, [place] # (Auto) 0.6, Eos # (Auto) 0.3, Baso # (Auto) 0.1 07/12/21 06:17: Sodium 139, Potassium 3.7 D, Chloride 105, Carbon Dioxide 18 L, Anion Gap 19.7 H, BUN 41 H, Creatinine 2.10 H D, Estimated Creat Clear 26, Estimated GFR 24 L, Est GFR ( Amer) 29 L D, Glucose 108 H, Calcium 8.1 L I & O for Last 24 hours: Intake & Output 07/09/21 07/10/21 07/11/21 07/12/21 23:59 23:59 23:59 23:59 Intake Total 120 / 120 Balance 120 / 120 Weight 155 lb 6.4 oz 137 lb 7 oz - Constitutional no acute distress - *Routine HEENT Exam Head: Present: normocephalic Eye: Present: EOMI ENT: Present: mucous membranes moist - *Routine Neck Exam Present: trachea midline. Absent: tracheal deviation - *Routine Respiratory Exam Present: CTA bilaterally. Absent: accessory muscle use - *Routine Cardiovascular Exam Present: RRR - *Routine Abdominal Exam Present: soft, normoactive bowel sounds. Absent: tenderness, firm - *Routine Extremities Exam Present: full ROM, pulses intact. Absent: cyanosis, clubbing, edema - *Routine Skin Exam Present: intact, dry. Absent: cyanosis, erythema - *Routine Neurological Exam Present: alert, oriented X3. Absent: motor deficit, altered mental status - Routine Psychiatric Exam Present: normal affect, normal thought process. Absent: visual hallucinations Assessment and Plan (1) DONNIE (acute kidney injury) Status: Acute Category: Medical Code(s): N17.9 - Acute kidney failure, unspecified (2) Dehydration Status: Acute Category: Medical Code(s): E86.0 - Dehydration (3) Gastroenteritis Status: Acute Category: Medical Code(s): K52.9 - Noninfective gastroenteritis and colitis, unspecified (4) Anxiety Status: Chronic Category: Medical Code(s): F41.9 - Anxiety disorder, unspecified (5) COVID-19 Status: Acute Category: Medical Code(s): U07.1 - COVID-19 (6) COPD (chronic obstructive pulmonary disease) Status: Chronic Qualifiers: COPD type: unspecified COPD Qualified Code(s): J44.9 - Chronic obstructive pulmonary disease, unspecified Category: Medical Code(s): J44.9 - Chronic obstructive pulmonary disease, unspecified (7) HTN (hypertension) Status: Chronic Qualifiers: Hypertension type: prima
--- NOTE | 2021-07-12 11:20 | HMH.CNCARD ---
History of Present Illness Consult date: 07/12/21 Requesting physician: Ronald Gr Chief complaint: diarrhea History of present illness: This is a 65-year-old white female who was admitted to the hospital from the emergency department secondary to copious amounts of diarrhea that had been going on for approximately a week. The patient was recently diagnosed with COVID-19 on June 29, 2021 and has been having diarrhea since that time. The patient was found to be significantly dehydrated with a creatinine of 3.4 while she was in the emergency department. The patient was admitted to the hospital and did have IV fluids. The patient was admitted previously to the hospital on 06/12/2021 and underwent left cardiac catheterization which showed mild to moderate nonocclusive coronary artery disease and apical ballooning consistent with Takotsubo's cardiomyopathy and ejection fraction of 20%. The patient was sent home with a LifeVest in place. She reports that she took that off before she came to the hospital because it was causing a rash. She denies any chest pain or pressure. She denies any shortness of breath or edema. She denies any fever, chills, nausea, vomiting, PND orthopnea. She states that she has been feeling really well except for the diarrhea. [facility] History I have reviewed the patient's past medical history: Yes Medical History: Reports:: Anxiety, Congestive Heart Failure, Chronic Obstructive Pulmonary Disease (COPD), Coronary Artery Disease, Cerebrovascular Accident, Depression, Hyperlipidemia, Hypertension, Myocardial Infarction, Osteoporosis, Palpitations, Valvular Heart Disease Denies:: Cancer, Diabetes Mellitus Type 1, Diabetes Mellitus Type 2, Internal Pacemaker, MRSA, Seizures *Have you ever received a pneumonia vaccine?: Yes *Have you received a flu vaccine this season?: Yes Other Medical History: Reports: Arthritis, Fibromyalgia, Liver Disease, Osteoporosis, Other (DDD) Other Surgeries: Yes: Colonoscopy, Tubal Ligation, Other. No: Pacemaker Amputation: No Fractures: No - *Social History Smoking Status: Former smoker # Packs/Day (cigarettes): 1 Alcohol Intake: never Substance Use Type: denies use *Occupational Status:: retired Housing: house Household Members: family *Travel in the last 8 weeks: None - Psychiatric History Pschychiatric History:: Reports:: Anxiety, Depression Family Hx:: Cancer, Diabetes Meds Home Medications Medication Instructions Recorded Confirmed Type escitalopram oxalate 20 mg tablet 20 mg PO DAILY tab 03/04/21 07/11/21 History loratadine 10 mg tablet 10 mg PO DAILY tab 03/04/21 07/11/21 History Furosemide [Lasix 40mg tablet] 40 mg PO DAILY 03/08/21 07/11/21 History Omeprazole 20 mg PO DAILY 03/08/21 07/11/21 History Spironolactone 100 mg PO DAILY 03/08/21 07/11/21 History Aspirin [Aspirin 81mg EC Tab] 81 mg PO DAILY 06/12/21 07/11/21 History Atorvastatin Calcium [Lipitor 20mg 20 mg PO HS 06/12/21 07/11/21 History Tab] Diclofenac Sodium [Voltaren 4 g TOPICAL QIDP PRN 06/12/21 07/11/21 History Arthritis Pain] Ipratropium/Albuterol Sulfate 2 puff IH QID 06/12/21 07/11/21 History [Combivent Respimat Inh] Oxybutynin Chloride [Oxybutynin 10 mg PO DAILY 06/12/21 07/11/21 History Chloride ER] clonazepam 0.5 mg tablet 0.5 mg PO BID #60 tab 06/18/21 07/11/21 Rx gabapentin 800 mg tablet 800 mg PO TID #90 tab 06/18/21 07/11/21 Rx hydrocodone 7.5 mg-acetaminophen 1 tab PO TIDP PRN #90 tab 06/18/21 07/11/21 Rx 325 mg tablet promethazine 25 mg tablet 25 mg PO Q8H PRN #30 tab 06/18/21 07/11/21 Rx Albuterol Sulfate [Albuterol 2 puffs PO Q6H PRN 07/11/21 07/11/21 History Sulfate Hfa] Clopidogrel Bisulfate [Plavix 75mg 75 mg PO DAILY 07/11/21 07/11/21 History Tab] Sacubitril/Valsartan [Entresto 1 tablet PO BID 07/11/21 07/11/21 History 24/26mg Tablet] bisoproloL fumarate [Bisoprolol 5 mg PO DAILY 07/11/21 07/11/21 History Fumarate] Allergies [place]
[2021-07-12 11:39] VITALS: BP 105/56; PULSE 51; RESP 16; TEMP 36.6
--- NOTE | 2021-07-12 11:48 | CA_ITS ---
APPROVED REPORT EXAM: Comprehensive 2D, Doppler, and color-flow Echocardiogram Supervisor Engraving: Amber Nazario, RT(R) Ht: 4 ft 11 in Wt: 136lbs BSA: 1.57 BP: 117/60 mmHg Indications: COVID, CM, EF 20% (06/12/21), patient was wearing lifevest but removed it 2 weeks ago due irritation, HTN, COPD, palpitations, hyperlipidemia, CHF, CAD, hx [place] Echo Enhancing Agent Indication: Endocardial border delineation Agent(s) / Amount(s) Used: Definity 2 cc M-Mode Dimensions RVDd 3.17 cm (0.9-2.6) LVDd 5.48 cm (3.5-5.7) LVDs 4.31 cm (3.5-5.7) IVSd 0.75 cm (0.6-1.1) PWd 1.21 cm (0.6-1.1) EF (Teich) 42.90% FS 21.40% EDV (Teich) 146.20 mL ESV (Teich) 83.50 mL LV Diastology E Decel Time 273.00 (160-240 msec) E/A Ratio 0.63 MED E' 6.80 (< 7 cm/sec) E'/MED E' Ratio 8.82 (>14) LAT E' 6.50 (<10 cm/sec) E/LAT E' Ratio 9.23 (>14) Mitral Valve MV A Velocity 96.00 (40-130 cm/s) E/A Ratio 0.63 MV Decel. Time 273.00 (160-240 ms) Left Ventricle Left atrium is mildly enlarged, left ventricle is normal size, mild concentric left ventricular hypertrophy, visually estimated ejection fraction 55% with no regional wall motion abnormality, grade 1 diastolic dysfunction seen without tissue Doppler evidence of raise left atrial pressure. Right Ventricle Right atrium and right ventricle mildly enlarged with normal contractility. Aortic Valve Aortic valve is minimally thickened and fibrosed, there is no aortic stenosis or aortic insufficiency. Mitral Valve Mitral valve is minimally thickened, there is no mitral stenosis. There is mild mitral regurgitation. Tricuspid Valve Tricuspid grossly normal, there is trace tricuspid regurgitation, tricuspid regurgitation jet velocity is inadequate for calculation of the right ventricular systolic pressure. Pulmonic Valve Pulmonic valve is poorly visualized. Great Vessels Aortic root is normal size. Pericardium No significant pericardial effusion noted. Conclusion 1. Normal left ventricular size, mild concentric left ventricular hypertrophy, visually estimated ejection fraction 55% with no regional wall motion abnormality, Definity contrast was utilized to delineate the endocardial surfaces, there is no left ventricular thrombus seen. Grade 1 diastolic dysfunction seen without tissue Doppler evidence of raise left atrial pressure. 2. Trace mitral and tricuspid regurgitation. 3. No significant pericardial effusion noted. Electronically signed by : Angel Franks MD 07/12/2021 14:20:10
[2021-07-12 15:57] VITALS: BP 110/63; PULSE 49; RESP 16; TEMP 36.6; O2SAT 97
--- NOTE | 2021-07-12 17:28 | PC.NURSE ---
pt has slept some of shift, has ambulated in room independently, no complaints of pain or SOA, did state that she had diarrhea this morning, but no reports of any loose stools since then, remains on room air
[2021-07-12 20:00] VITALS: BP 150/68; PULSE 50; RESP 18; TEMP 36.4; O2SAT 96
[2021-07-12 20:59] LABS: Chloride 109 mmol/L (98-107); Potassium 4.5 mmoL/L (3.5-5.1); Sodium 139 mmol/L (136-145)
[2021-07-12 21:02] LABS: Blood Urea Nitrogen 31 mg/dl (7-17); Calcium 7.5 mg/dl (8.4-10.2); Carbon Dioxide 17 mmol/L (22.0-30.0); Creatinine Clearance Estimated 42 mL/min (50-200); Estimated Glomerular Filt Rate 41 ml/min (>60); GFR (African American) 50 ML/MIN (>60)
[2021-07-12 21:03] LABS: Anion Gap 17.5 mEq/L (5-15); Glucose 84 mg/dl (74-100)
[2021-07-12 22:49] LABS: Adenovirus F 40/41, stool Not Detected (NotDetected); Astrovirus Not Detected (NotDetected); Campylobacter Not Detected (NotDetected); Clostridium Difficile A/B, PCR Not Detected (NotDetected); Cryptosporidium Not Detected (NotDetected); Cyclospora Cayetanesis Not Detected (NotDetected); Entamoeba histolytica Not Detected (NotDetected); Enteroaggregative E coli Not Detected (NotDetected); Enteropathogenic E coli Not Detected (NotDetected); Enterotoxigenic E coli Not Detected (NotDetected); Giardia lamblia Not Detected (NotDetected); Norovirus Not Detected (NotDetected); Plesimonas Shigalloides, PCR Not Detected (NotDetected); Rotavirus A Not Detected (NotDetected); Salmonella, PCR Not Detected (NotDetected); Sapovirus Not Detected (NotDetected); Shiga-like toxin E coli Not Detected (NotDetected); Shigella Enterovasive E coli Not Detected (NotDetected); Vibrio Cholerae Not Detected (NotDetected); Vibrio, PCR Not Detected (NotDetected); Yersinia Entercolitica, PCR Not Detected (NotDetected)
[2021-07-13] VITALS: BP 146/68; PULSE 50; RESP 18; TEMP 36.4; O2SAT 96
--- NOTE | 2021-07-13 03:04 | PC.NURSE ---
Shift summary. Pt has been very uncooperative t/o shift. Pt has continued to screw off her fluids herself and lay tubing in the floor. This RN has entered room multiple times t/o shift to find fluids unhooked and puddle on floor. Pt has also been trying to leave room and wander hallway. Pt states I want to smoke a cigarette. Pt has been educated on need for fluids and isolation precaution protocols multiple times. Pt c/o episodes of explosive diarrhea at beginning of shift. MD production planner notified and pt given 2mg Imodium ONCE PO. Pt states favorable results. Tolerated RA well with sats in upper 90s. Pt currently resting in bed. VSS. Call light in reach. Will continue to monitor.
[2021-07-13 04:00] VITALS: BP 111/53; PULSE 52; RESP 20; TEMP 36.5; O2SAT 95
[2021-07-13 05:12] VITALS: BMI 27.8
[2021-07-13 08:00] VITALS: BP 141/76; PULSE 49; RESP 16; TEMP 36.6; O2SAT 95
--- NOTE | 2021-07-13 08:53 | HMH.DCSUM ---
General - General Admission date:: 07/11/21 Discharge date: 07/13/21 HPI HPI: Is a 65-year-old white female, and of Dr. Gr. She presented to the emergency room with copious diarrhea for the last week or so. She had markedly abnormal labs with a creatinine of 3.4, elevated above her baseline of 1.3. Her anion gap was 29.7, possibly reflecting a uremic acidosis. She was diagnosed with Covid on 06/29/2021. She has had several sick contacts at home. Patient has been cathed in the fairly recent past. At the time of cath she was diagnosed with a Takotsubo cardiomyopathy. Renal function precluded CT with contrast. Her abdominal exam is benign, white count slightly elevated at 13.9. Patient has a decent appetite, is eating and drinking all amounts. She is being hydrated at a rate of 150. Chest x-ray was normal on admission, no infiltrative process was noted. Hospital Course Hospital Course: Patient was admitted with a week of uncontrolled diarrhea, following a Covid diagnosis on 06/29/2021. PCR stool studies negative for pathogens. She was hydrated aggressively at 150. Her renal function acutely improved, creatinine went from 3.4-1.3. Insistent with DONNIE resolved. The day of her discharge the patient was feeling much better, up and ambulating. She tolerates exertion well. Objective Vital signs: Temp Pulse Resp BP Pulse Ox 97.7 F 52 L 20 111/53 L 95 07/13/21 04:00 07/13/21 04:00 07/13/21 04:00 07/13/21 04:00 07/13/21 04:00 no acute distress - *Routine HEENT Exam Head: Present: normocephalic Eye: Present: EOMI, PERRL ENT: Present: mucous membranes moist - *Routine Neck Exam Present: supple - *Routine Respiratory Exam Present: CTA bilaterally - *Routine Cardiovascular Exam Present: RRR - *Routine Abdominal Exam Present: soft, normoactive bowel sounds. Absent: tenderness - *Routine Extremities Exam Absent: cyanosis, clubbing, edema - *Routine Skin Exam Present: warm. Absent: rash Results Labs on day of discharge: Labs from last 24 hours 07/12/21 07/12/21 21:02 20:45 Sodium 139 Potassium 4.5 D Chloride 109 H Carbon Dioxide 17 L Anion Gap 17.5 H BUN 31 H Creatinine 1.30 H D Estimated Creat Clear 42 Estimated GFR 41 L Est GFR ( Amer) 50 L D Glucose 84 D Calcium 7.5 L Stl Aeromonas (PCR) Not detected Stl C. cayetanensis PCR Not detected Stool Rotavirus (PCR) Not detected Stl Adenov F 40/41 PCR Not detected Stool Astrovirus (PCR) Not detected Stool Campylobacter PCR Not detected Stl C.difficile Tox PCR Not detected Stool Cryptosporidium PCR Not detected Stl E.coli Shiga Tox PCR Not detected Stool E coli O157 PCR Not detected Stl Enterotoxigenic E PCR Not detected Stool EPEC (PCR) Not detected Stool EAEC (PCR) Not detected Stl E. histolytica PCR Not detected Stool Giardia Lamblia PCR Not detected Stool Salmonella PCR Not detected Stool Sapovirus (PCR) Not detected Stl P. shigelloides PCR Not detected Stl Shigella/EIEC PCR Not detected St Y.enterocolitica PCR Not detected Stool Vibrio (PCR) Not detected Stl Vibrio cholerae PCR Not detected Stl Norovirus GI/GII PCR Not detected DS: Diagnosis - Discharge Diagnosis (1) DONNIE (acute kidney injury) Status: Resolved (2) Dehydration Status: Resolved (3) Gastroenteritis Status: Acute (4) Anxiety Status: Chronic (5) COVID-19 Status: Acute (6) COPD (chronic obstructive pulmonary disease) Status: Chronic (7) HTN (hypertension) Status: Chronic (8) Tobacco user Status: Chronic (9) Diarrhea Status: Acute (10) HHD (hypertensive heart disease) Status: Acute (11) Takotsubo cardiomyopathy Status: Acute (12) CAD (coronary artery disease) Status: Chronic (13) HLD (hyperlipidemia) Status: Chronic Discharge Plan - Patient Discharge Instructions ACTIVITY:
[2021-07-13 12:00] VITALS: BP 131/62; PULSE 57; RESP 18; TEMP 36.6; O2SAT 94
--- NOTE | 2021-07-13 15:16 | PC.NURSE ---
Patient continued to come into hallway to state that she was going to go smoke. Patient was reminded that [facility] is a non smoking facility and offered to get a nicotine patch. Upon discharge patient stated that she was going downstairs. This RN inquired if her ride was here, patient stated, NO but I want to wait outside. This RN accompanied patient downstairs. No new concerns at this time.
== END 2021-07-13 15:00 | disposition home or self-care (01) | DRG 682 ==
LOC: ER 14:31 → 2ND 15:14
PROVIDERS: Admitting Provider Family Medicine; Emergency Provider Emergency Medicine; PCP Emergency Medicine; Visit Provider Emergency Medicine
DX: N17.9 Acute kidney failure, unspecified (principal); U07.1 COVID-19; I51.81 Takotsubo syndrome; E86.0 Dehydration; K52.9 Noninfective gastroenteritis and colitis, unspecified; J44.9 Chronic obstructive pulmonary disease, unspecified; I10 Essential (primary) hypertension; Z87.891 Personal history of nicotine dependence; M81.0 Age-related osteoporosis without current pathological fracture; M79.7 Fibromyalgia; Z86.73 Personal history of transient ischemic attack (TIA), and cerebral infarction without residual deficits; F41.9 Anxiety disorder, unspecified; F32.9 Major depressive disorder, single episode, unspecified; I25.10 Atherosclerotic heart disease of native coronary artery without angina pectoris
CPT/HCPCS: 36415; 71045; 80048; 80076; 83690; 84484; 85025; 87506; 93005; 93308; 96365; 96375; 99284; C9803; J2405; U0003; U0005

== ENCOUNTER → 2021-08-16 19:22 | Outpatient (CLI) | payer MEDICARE, SELFPAY ==
[2021-08-16 20:00] LABS: Amphetamine/Metha Screen,Urine Negative ng/ml (<1000)
[2021-08-16 20:01] LABS: Barbiturates Screen,Urine Negative ng/ml (<200)
[2021-08-16 20:02] LABS: Benzodiazepines Screen,Urine Negative ng/ml (<200); Cannabinoid Screen,Urine Positive ng/ml (<50)
[2021-08-16 20:03] LABS: Cocaine Screen,Urine Negative ng/ml (<300)
[2021-08-16 20:04] LABS: Methadone Screen,Urine Negative ng/ml (<300)
[2021-08-16 20:05] LABS: Opiate Screen,Urine Positive ng/ml (<300); Phencyclidine Screen,Urine Negative ng/ml (<25)
== END ==
PROVIDERS: Visit Provider Emergency Medicine
DX: M51.16 Intervertebral disc disorders with radiculopathy, lumbar region (principal)
CPT/HCPCS: 80305

== ENCOUNTER → 2021-12-06 16:00 | Outpatient (CLI) | payer MEDICARE, SELFPAY ==
[2021-12-06 18:48] LABS: Barbiturates Screen,Urine Negative ng/ml (<200)
[2021-12-06 18:49] LABS: Benzodiazepines Screen,Urine Negative ng/ml (<200)
[2021-12-06 18:50] LABS: Amphetamine/Metha Screen,Urine Negative ng/ml (<1000); Methadone Screen,Urine Negative ng/ml (<300)
[2021-12-06 18:51] LABS: Cannabinoid Screen,Urine Positive ng/ml (<50)
[2021-12-06 18:52] LABS: Cocaine Screen,Urine Negative ng/ml (<300)
[2021-12-06 18:53] LABS: Opiate Screen,Urine Positive ng/ml (<300); Phencyclidine Screen,Urine Negative ng/ml (<25)
== END ==
LOC: LAB.DROPOF 12-09 06:36
PROVIDERS: Visit Provider Emergency Medicine
DX: M51.16 Intervertebral disc disorders with radiculopathy, lumbar region (principal)
CPT/HCPCS: 80305

== ENCOUNTER → 2021-12-23 09:47 | Outpatient (CLI) | payer MEDICARE, SELFPAY ==
[2021-12-23 10:34] LABS: Basophils # 0.1 K/mm3 (0-0.2); Eosinophils # 0.5 K/mm3 (0.0-0.4); Eosinophils % 4.2 % (0.1-12.0); Hematocrit 45.7 % (37.0-47.0); Hemoglobin 14.6 g/dL (12.2-16.2); Lymphocytes # 3.7 K/mm3 (0.7-4.5); Lymphocytes % 30.4 % (10-50); Mean Corpuscular HGB Conc 31.9 g/dL (31.8-35.4); Mean Corpuscular Volume 94.1 fl (81-99); Mean Platelet Volume 10.5 fl (7.4-10.4); Monocytes # 0.6 K/mm3 (0.1-1.0); Monocytes % 4.8 % (1.7-9.3); Neutrophils # 7.3 K/mm3 (1.8-7.8); Neutrophils % 59.6 % (37.0-80.0); Platelet Count 234 K/mm3 (142-424); Red Blood Count 4.86 M/mm3 (4.20-5.40); Red Cell Distribution Width 13.8 % (11.5-17.5); White Blood Count 12.2 K/mm3 (4.8-10.8)
[2021-12-23 11:19] LABS: Alanine Aminotransferase 17 U/L (12-78); Albumin Level 4.8 g/dl (3.5-5.0); Albumin/Globulin Ratio 1.9 (1.1-1.8); Alkaline Phosphatase 72 U/L (38-126); Aspartate Amino Transferase 26 U/L (14-36); Bilirubin,Total 0.5 mg/dl (0.2-1.3); Blood Urea Nitrogen 25 mg/dl (7-17); Calcium 9.9 mg/dl (8.4-10.2); Carbon Dioxide 29 mmol/L (22.0-30.0); Chloride 99 mmol/L (98-107); Estimated Glomerular Filt Rate 41 ml/min (>60); GFR (African American) 49 ML/MIN (>60); Globulin 2.5 g/dL (1.3-3.2); Glucose 116 mg/dl (74-100); Sodium 137 mmol/L (136-145); Total Protein,Serum 7.3 g/dl (6.3-8.2)
== END ==
LOC: LAB 09:48
PROVIDERS: Visit Provider Emergency Medicine
DX: I21.3 ST elevation (STEMI) myocardial infarction of unspecified site (principal); N28.9 Disorder of kidney and ureter, unspecified
CPT/HCPCS: 36415; 80053; 85025

== ENCOUNTER → 2022-01-31 08:33 | Outpatient (CLI) | payer MEDICARE, SELFPAY ==
[2022-01-31 18:44] LABS: Amphetamine/Metha Screen,Urine Negative ng/ml (<1000)
[2022-01-31 18:45] LABS: Barbiturates Screen,Urine Negative ng/ml (<200); Benzodiazepines Screen,Urine Negative ng/ml (<200)
[2022-01-31 18:46] LABS: Cannabinoid Screen,Urine Positive ng/ml (<50)
[2022-01-31 18:47] LABS: Cocaine Screen,Urine Negative ng/ml (<300); Methadone Screen,Urine Negative ng/ml (<300)
[2022-01-31 18:48] LABS: Opiate Screen,Urine Positive ng/ml (<300)
[2022-01-31 18:49] LABS: Phencyclidine Screen,Urine Negative ng/ml (<25)
== END ==
LOC: LAB.DROPOF 02-15 08:34
PROVIDERS: Visit Provider Emergency Medicine
DX: M51.16 Intervertebral disc disorders with radiculopathy, lumbar region (principal)
CPT/HCPCS: 80305

== ENCOUNTER → 2022-02-17 12:35 | Outpatient (POV) | payer MEDICARE, SELFPAY | PROVIDERS: Visit Provider Internal Medicine Nephrology | DX: Z00.00 Encounter for general adult medical examination without abnormal findings (principal) ==

== ENCOUNTER → 2022-03-20 07:57 | Outpatient (CLI) | payer MEDICARE, SELFPAY ==
--- NOTE | 2022-03-20 07:57 | US_ITS ---
FINAL REPORT CLINICAL HISTORY: abdominal pain FINDINGS: Sonographic images of the right upper quadrant were obtained. The pancreas is normal. There is some coarsening of the hepatic echotexture of uncertain significance. There is a small amount of sludge within the gallbladder without evidence of gallstones. There is no evidence of biliary ductal dilatation.The common duct measures 3 mm. The right kidney measures 9.2 cm. There is a 1.4 cm right renal cyst. IMPRESSION: Coarsening of hepatic echotexture of uncertain significance. Small amount of sludge within the gallbladder without evidence of gallstones. Right renal cyst. Reviewed, Interpreted and Dictated by Damian Valles III, MD Transcribed by Willow Long Authenticated and [facility]
== END ==
LOC: RAD 07:57
PROVIDERS: PCP Emergency Medicine; Visit Provider Emergency Medicine
DX: R10.9 Unspecified abdominal pain (principal)
CPT/HCPCS: 76705

== ENCOUNTER → 2022-03-31 15:38 | Outpatient (CLI) | payer MEDICARE, SELFPAY ==
--- NOTE | 2022-03-31 15:41 | CA_ITS ---
APPROVED REPORT EXAM: Comprehensive 2D, Doppler, and color-flow Echocardiogram Supervisor Paint: Ranjana Cornejo RVT Ht: 4 ft 11 in Wt: 143lbs BSA: 1.60 BP: 128/51 mmHg Indications: SOA,EDEMA,COPD,PALPS,FATIGUE,HTN,HLD,CAD,BRADYCARDIA,HX COVID TDS 2D Dimensions LVOT 2.08 cm (M/F) 1.5-2.5 M-Mode Dimensions RVDd 2.54 cm (0.9-2.6) LA Diam 4.08 cm (1.9-4.0) LVDd 5.23 cm (3.5-5.7) Ao Diam 2.52 cm (2.0-3.7) LVDs 3.70 cm (3.5-5.7) IVSd 0.93 cm (0.6-1.1) PWd 1.09 cm (0.6-1.1) EF (Teich) 55.70% FS 29.30% EDV (Teich) 131.20 mL ESV (Teich) 58.10 mL LV Diastology E Decel Time 150.00 (160-240 msec) E/A Ratio 1.6 MED E' 6.00 (< 7 cm/sec) E'/MED E' Ratio 11.93 (>14) LAT E' 7.70 (<10 cm/sec) E/LAT E' Ratio 9.30 (>14) Aortic Valve AO Peak GR. 3.50 mmHg Mitral Valve MV E Max Bernabe. 72.00 (40-130 cm/s) MV A Velocity 46.00 (40-130 cm/s) E/A Ratio 1.57 MV Decel. Time 150.00 (160-240 ms) MV PHT 44.00 ms Pulmonary Valve PV Peak Velocity 88.00 (50-150 cm/s) Tricuspid Valve TR P. Velocity 235.00 cm/s RAP Estimate 10.00 mmHg RVSP 32.00 mmHg Left Ventricle Left atrium is mildly enlarged, left ventricle is normal size, mild concentric left ventricular hypertrophy, estimated ejection fraction 55% with no regional wall motion abnormality, diastolic parameters are inconclusive. Right Ventricle Right atrium and right ventricle are normal size and contractility. Aortic Valve Aortic valve is minimally thickened and fibrosed there is no aortic stenosis or aortic insufficiency. Mitral Valve Mitral valve grossly normal, there is trace mitral regurgitation. Tricuspid Valve Tricuspid valve grossly normal, there is trace tricuspid regurgitation, tricuspid regurgitation jet velocity is inadequate for calculation of the right ventricular systolic pressure. Pulmonic Valve Pulmonic valve is poorly visualized. Great Vessels Aortic root is normal size. Inferior vena cava is poorly visualized. Pericardium No significant pericardial effusion noted. Conclusion 1. Mildly enlarged left atrium, normal left ventricular size, mild concentric left ventricular hypertrophy, estimated ejection fraction 55% with no regional wall motion abnormality, diastolic parameters are inconclusive. 2. Trace mitral and tricuspid regurgitation. 3. No significant pericardial effusion. 4. Inferior vena cava is poorly visualized. Electronically signed by : Angel Franks MD 03/31/2022 18:38:02
== END ==
LOC: RT 15:38
PROVIDERS: PCP Emergency Medicine; Visit Provider Nurse Practitioner
DX: E78.5 Hyperlipidemia, unspecified (principal); G45.9 Transient cerebral ischemic attack, unspecified; I11.9 Hypertensive heart disease without heart failure; I34.0 Nonrheumatic mitral (valve) insufficiency; R00.1 Bradycardia, unspecified; R06.00 Dyspnea, unspecified; Z72.0 Tobacco use; Z86.73 Personal history of transient ischemic attack (TIA), and cerebral infarction without residual deficits; I20.8 Other forms of angina pectoris
CPT/HCPCS: 93306

== ENCOUNTER → 2022-04-15 10:19 | Outpatient (CLI) | payer MEDICARE, SELFPAY ==
--- NOTE | 2022-04-15 10:23 | NM_ITS ---
FINAL REPORT CLINICAL HISTORY: sludge in Gallbladder 10:35am 8.02 mci tc choletec 1.3 mcg cck no pain with cck FINDINGS: Sequential anterior projection images of the abdomen were obtained after the intravenous injection of 8.02 mCi technetium 99m Choletec. There is normal uptake of radiotracer by the liver. The bile ducts are visualized by 10 minutes. Gallbladder activity is seen by 15 minutes. Bowel activity is noted by 15 minutes. After 1 hour, 1.3 ?g of CCK was injected intravenously for calculation of gallbladder ejection fraction. The gallbladder ejection fraction is 96%, which is within normal limits. IMPRESSION: No evidence of cystic duct or bile duct obstruction. Normal gallbladder ejection fraction of 96%. Reviewed, Interpreted and Dictated by Damian Valles III, MD Transcribed by Melody Nieto Authenticated and [facility]
--- NOTE | 2022-04-15 10:40 | HMH.ITSHM ---
Current Home Medications as stated by this patient Yuridia Edwards or community engagement representative. []OXYCODONE GABAPENTIN CLONAZEPAM BISOPROLOL ASA SPIRONOLACTONE PLAVIX ALBUTEROL ENTRESTO OXYBUTYNIN OMEPRAZOLE LORATADINE FUROSEMIDE ESCITALOPRAM VOLTAREN ATORVASTATIN
== END ==
LOC: RAD 10:20
PROVIDERS: PCP Emergency Medicine; Visit Provider Emergency Medicine
DX: K82.8 Other specified diseases of gallbladder (principal)
CPT/HCPCS: 78227; A9537; J2805

== ENCOUNTER 2022-05-24 17:15 | Inpatient (IN) | payer MEDICARE, SELFPAY ==
--- NOTE | 2022-05-24 17:15 | ECG_ITS ---
APPROVED REPORT Exam: Resting ECG HR:82 bpm ECG Measurements Heart Rate 82 AXES IL 148 P 57 QRSd 106 QRS -6 QT 403 T -11 QTc 442 Conclusion SINUS RHYTHM Old anteroseptal changes with resolution of acute ST changes from 2020 Isolated Q in III Borderline LAD ABNORMAL ECG UNCONFIRMED REPORT Electronically signed by : Rafy Weston MD 05/25/2022 09:10:13
[2022-05-24 17:37] VITALS: BMI 31.1
--- NOTE | 2022-05-24 17:37 | XR_ITS ---
PROCEDURE INFORMATION: Exam: XR Chest Exam date and time: 05/24/2022 5:51 PM Age: 66 years old Clinical indication: Other: Weakness TECHNIQUE: Imaging protocol: Radiologic exam of the chest. Views: 1 view. COMPARISON: CR XR CHEST PORTABLE 07/11/2021 2:10 PM FINDINGS: Tubes, catheters and devices: Overlying movie writer electrodes and oxygen tubing. Lungs: Mild hypoventilation/shallow inspiration, with minimal infrahilar subsegmental atelectasis. No consolidation. No acute findings. Pleural spaces: Unremarkable. No significant pleural effusion. No pneumothorax. Heart/Mediastinum: The cardiac silhouette is normal. Vasculature: Calcified plaque in the aortic arch. Bones/joints: There are spinal degenerative changes, with multilevel disc narrrowing and spondylosis. IMPRESSION: No acute findings.
[2022-05-24 17:39] VITALS: BP 92/52; PULSE 82; RESP 26; TEMP 37; O2SAT 94; BMI 31.1
--- NOTE | 2022-05-24 18:00 | PC.NURSE ---
blood/covid swab sent to the lab. ua to be obtained via cath
[2022-05-24 18:05] LABS: Coronavirus 19, PCR Not Detected (NotDetected); Influenza A, PCR Not Detected (NotDetected); Influenza B, PCR Not Detected (NotDetected)
[2022-05-24 18:12] LABS: Basophils # 0.1 K/mm3 (0-0.2); Basophils % 0.2 % (0.1-2.0); Eosinophils # 0.3 K/mm3 (0.0-0.4); Eosinophils % 1.2 % (0.1-12.0); Hematocrit 39.6 % (37.0-47.0); Hemoglobin 12.5 g/dL (12.2-16.2); Lymphocytes # 1.3 K/mm3 (0.7-4.5); Lymphocytes % 4.9 % (10-50); Mean Corpuscular HGB Conc 31.7 g/dL (31.8-35.4); Mean Corpuscular Hemoglobin 29.1 pg (27.0-31.2); Mean Corpuscular Volume 91.8 fl (81-99); Mean Platelet Volume 12.2 fl (7.4-10.4); Monocytes # 0.8 K/mm3 (0.1-1.0); Neutrophils # 23.6 K/mm3 (1.8-7.8); Neutrophils % 90.6 % (37.0-80.0); Platelet Count 190 K/mm3 (142-424); Red Blood Count 4.31 M/mm3 (4.20-5.40); Red Cell Distribution Width 13.8 % (11.5-17.5)
[2022-05-24 18:13] LABS: Lactic Acid 1.3 mmol/L (0.7-2.1)
[2022-05-24 18:14] LABS: Alanine Aminotransferase 26 U/L (12-78); Albumin Level 3.9 g/dl (3.5-5.0); Albumin/Globulin Ratio 1.4 (1.1-1.8); Alkaline Phosphatase 60 U/L (38-126); Anion Gap 27.7 mEq/L (5-15); Aspartate Amino Transferase 65 U/L (14-36); Bilirubin,Total 0.3 mg/dl (0.2-1.3); Calcium 6.1 mg/dl (8.4-10.2); Chloride 103 mmol/L (98-107); Creatinine Clearance Estimated 6 mL/min (50-200); Estimated Glomerular Filt Rate 3 ml/min (>60); GFR (African American) 4 ML/MIN (>60); Globulin 2.8 g/dL (1.3-3.2); Glucose 98 mg/dl (74-100); Potassium 5.7 mmoL/L (3.5-5.1); Sodium 134 mmol/L (136-145); Total Protein,Serum 6.7 g/dl (6.3-8.2)
--- NOTE | 2022-05-24 18:19 | HMH.EDGENADL ---
ED Disposition Clinical Impression: Dehydration Sepsis Qualifiers: Sepsis type: sepsis due to unspecified organism Sepsis acute organ dysfunction status: with acute organ dysfunction Severe sepsis acute organ dysfunction type: acute renal failure Acute renal failure type: unspecified Severe sepsis shock status: without septic shock Qualified Code(s): A41.9 - Sepsis, unspecified organism Urinary tract infection Qualifiers: Urinary tract infection type: site unspecified Hematuria presence: without hematuria Qualified Code(s): N39.0 - Urinary tract infection, site not specified Acute renal failure Qualifiers: Acute renal failure type: unspecified Qualified Code(s): N17.9 - Acute kidney failure, unspecified Disposition: Admitted As Inpatient Condition on Discharge: Serious - Critical Care Critical Care Time: Yes Attestation: On 05/24/22, the high probability of a clinically significant, sudden or life threatening deterioration of the following system(s) required my full and direct attention, intervention and personal management. The time I documented below is in addition to time spent performing reported procedures but includes the following listed in this critical care notation. Total Critical Care Time: 45 Vital system(s) involved:: Renal Failure My critical care processes included: Assessment & monitoring of V/S, Initial and Re-exams, Data Review/Interpretation, Coordinating Care, Medication Orders and management, Documentation Medical Decision Making - Honorio Inquiry Pt receiving controlled substance: No Vital Signs: 05/24/22 17:39 Temperature 98.6 F Temperature Source Oral Pulse Rate [Left Radial] 82 Respiratory Rate 26 H Blood Pressure [Right Arm] 92/52 L Blood Pressure Mean [Right Arm] 65 02 Sat by Pulse Oximetry 94 L Oxygen Delivery Method Nasal Cannula Oxygen Flow Rate (LPM) 2 - Lab Data Lab Results 05/24/22 17:56: WBC 26.1 H*, RBC 4.31, Hgb 12.5, Hct 39.6, MCV 91.8, MCH 29.1, MCHC 31.7 L, RDW 13.8, Plt Count 190, MPV 12.2 H, Neut % (Auto) 90.6 H, Lymph % (Auto) 4.9 L, [place] % (Auto) 3.0, Eos % (Auto) 1.2, Baso % (Auto) 0.2, Neut # (Auto) 23.6 H, Lymph # (Auto) 1.3, [place] # (Auto) 0.8, Eos # (Auto) 0.3, Baso # (Auto) 0.1, Total Counted 100, Neutrophils % (Manual) 75, Band Neutrophils % 9.0 H, Lymphocytes % (Manual) 15, Monocytes % (Manual) 1 L, Platelet Estimate Normal, Hypochromasia 1+ 05/24/22 17:56: Sodium 134 L, Potassium 5.7 H, Chloride 103, Carbon Dioxide 9 L*, Anion Gap 27.7 H, BUN 153 H*, Creatinine 11.60 H, Estimated Creat Clear 6, Estimated GFR 3 L*, Est GFR ( Amer) 4 L*, Glucose 98, Calcium 6.1 L, Total Bilirubin 0.3, AST 65 H, ALT 26, Alkaline Phosphatase 60, Total Protein 6.7, Albumin 3.9, Globulin 2.8, Albumin/Globulin Ratio 1.4 05/24/22 17:56: SARS-CoV-2 (PCR) Not detected, Influenza A Untype (PCR) Not detected, Influenza Type B (PCR) Not detected 05/24/22 17:56: Lactate 1.3 05/24/22 18:21: Stool Occult Blood Positive A 05/24/22 18:25: Urine Color Yellow, Urine Appearance Cloudy, Urine pH 5.0, Ur Specific [place] >= 1.030, Urine Protein Trace, Urine Glucose (UA) Negative, Urine Ketones Negative, Urine Blood 3+, Urine Nitrate Negative, Urine Bilirubin 2+ A, Urine Urobilinogen 0.2, Ur Leukocyte Esterase 2+ A, Urine RBC 10-20, Urine WBC Tntc, Ur Squamous Epith Cells 5-10, Urine Bacteria 4+ 05/24/22 18:25: Urine Opiates Screen Negative, Urine Methadone Screen Negative, Ur Barbituates Screen Negative, Ur Phencyclidine Scrn Negative, Ur Amphetamines Screen Negative, U Benzodiazepines Scrn Negative, Urine Cocaine Screen Negative, U Marijuana (THC) Screen Negative 05/24/22 18:33: VBG pH 7.06 L, VBG pCO2 37.2, VBG pO2 69.9 H, VBG HCO3 10.2 L, VBG Total CO2 11.3 L, VBG O2 Saturation 88.6 H, VBG Base Excess -20.2 L Result diagrams: 05/24/22 17:56 05/24/22 17:56 Orders (Tests/Meds): ED MEDICATIONS Generic Name Dose Route Start Last Admin Trade Name Freq PRN Reason Stop Dose Admin Ceftriaxone S
[2022-05-24 18:20] LABS: White Blood Count 26.1 K/mm3 (4.8-10.8)
[2022-05-24 18:21] LABS: MANUAL DIFFERENTIAL MANUAL DIFFERENTIAL (MANUAL DIFF)
[2022-05-24 18:24] LABS: Blood Urea Nitrogen 153 mg/dl (7-17); Carbon Dioxide 9 mmol/L (22.0-30.0)
[2022-05-24 18:30] LABS: Lymphocytes % 15 % (10-50); Monocytes % 1 % (2-9); Neutrophils % 75 % (42-76); Total Cells Counted 100
[2022-05-24 18:31] LABS: Hypochromasia 1+; Platelet Estimate Normal
[2022-05-24 18:31] LABS: Microscopic, Urine URINE MICROSCOPIC (MICROSCOPIC)
--- NOTE | 2022-05-24 18:32 | CT_ITS ---
PROCEDURE INFORMATION: Exam: CT Abdomen And Pelvis Without Contrast Exam date and time: 05/24/2022 6:48 PM Age: 66 years old Clinical indication: Abdominal pain; Additional info: Abdo pain TECHNIQUE: Imaging protocol: Computed tomography of the abdomen and pelvis without contrast. Radiation optimization: All CT scans at this facility use at least one of these dose optimization techniques: automated exposure control; mA and/or kV adjustment per patient size (includes targeted exams where dose is matched to clinical indication); or iterative reconstruction. COMPARISON: RUQ US RUQ-(ABD LTD)1ORGAN/QUAD/FU 04/13/2017 9:39 AM FINDINGS: Lungs: Patchy interstitial scarring or subsegmental atelectasis in the posterior and lower lungs. No focal consolidation. Heart: Multiple coronary artery calcifications. Liver: Unremarkable nonenhanced exam. No hepatomegaly. Gallbladder and bile ducts: The gallbladder is unremarkable. No calcified stones or biliary dilatation. Pancreas: Mild fatty infiltrative changes of the pancreas. No ductal dilatation. Spleen: No splenomegaly. Calcified granulomas. Adrenal glands: Mildly thickened adrenals. No discrete suspicious nodule. Kidneys and ureters: There is a 1.7 cm posterior right renal cortical lesion likely corresponding with the previously reported right renal cyst, but this has HU density of approximately 33, indeterminate, suggesting complex cyst. This is incompletely characterized on this nonenhanced scan. No hydronephrosis, hydroureter, or obstructing calcified ureteral stones. Bilateral renal calcifications are probably vascular calcifications, cannot exclude small nonobstructing calculi. Stomach and bowel: The distal colon is partially empty and contracted which likely accounts for thickened appearance, though differential would be colitis. There is liquid stool in the colon, and a few air-fluid levels. There are several scattered diverticula, but no focal findings of pericolic fluid or extraluminal gas bubbles to confirm acute diverticulitis. There is no evidence of intestinal perforation or obstruction. There are fluid-filled small bowel loops with some scattered air-fluid levels, but no dilated loops or mucosal thickening.The stomach is normal. Appendix: A normal appendix is identified. Intraperitoneal space: There is no free intraperitoneal air. There is no significant free intraperitoneal fluid. Vasculature: There is no aortic aneurysm.The vasculature demonstrates diffuse moderate atherosclerotic calcification. Lymph nodes: No significantly enlarged lymph nodes by short axis criteria. Urinary bladder: The urinary bladder is empty and contracted around a Brush catheter, not well evaluated. Reproductive: Tiny calcified nodule at the uterine fundus, probably calcified fibroid or this could be vascular calcification series 3, image 100. No acute reproductive findings, as visualized. Bones/joints: There are spinal degenerative changes, with multilevel disc narrrowing and spondylosis. Chronic appearing anterior wedge compression deformities in the lower thoracic spine with mild kyphosis. No acute appearing fracture or high-grade listhesis, as visualized. Soft tissues: There are no soft tissue masses or fluid collections. IMPRESSION: 1. Scattered colonic diverticula, no extraluminal gas bubbles or pericolic fluid to confirm acute diverticulitis. 2. Some liquid stool in the colon which could be due to enterocolitis or diarrheal disease. Much of the distal colon is empty and contracted which likely accounts for slightly thickened appearance, though differential would be colitis. 3. There is no parvin
--- NOTE | 2022-05-24 18:34 | PC.NURSE ---
called RT for vbg order
[2022-05-24 18:38] LABS: Appearance,Urine CLOUDY (Clear); Blood, Urine 3+ (Negative); Color,Urine YELLOW (Yellow); Glucose,Urine (UA) Negative (Negative); Ketones,Urine Negative (Negative); Leukocyte Esterase,Urine 2+ (Negative); Nitrate,Urine Negative (Negative); Protein,Urine TRACE (Negative); Specific Gravity, Urine >= 1.030 (1.005-1.030); Urobilinogen,Urine 0.2 EU/dl (0.2)
[2022-05-24 18:43] LABS: Bilirubin,Urine 2+ (Negative)
--- NOTE | 2022-05-24 18:46 | PC.NURSE ---
Vani Rn to room
[2022-05-24 18:47] LABS: Bacteria,Urine 4+ /lpf; WBC,Urine TNTC #/hpf (0-3)
[2022-05-24 18:49] LABS: Amphetamine/Metha Screen,Urine Negative ng/ml (<1000); Benzodiazepines Screen,Urine Negative ng/ml (<200)
[2022-05-24 18:50] LABS: Barbiturates Screen,Urine Negative ng/ml (<200)
[2022-05-24 18:50] LABS: VBG Base Excess -20.2 mmol/L (-2.4-2.3); VBG HCO3 10.2 mmol/L (23-30); VBG Oxygen Saturation 88.6 % (50-70); VBG PCO2 37.2 mmol/L (35-51); VBG PH 7.06 mmol/L (7.31-7.41); VBG PO2 69.9 mmol/L (28-40); VBG Total CO2 11.3 mmol/L (23-27)
[2022-05-24 18:51] LABS: Cannabinoid Screen,Urine Negative ng/ml (<50); Cocaine Screen,Urine Negative ng/ml (<300)
[2022-05-24 18:52] LABS: Methadone Screen,Urine Negative ng/ml (<300)
[2022-05-24 18:53] LABS: Opiate Screen,Urine Negative ng/ml (<300); Phencyclidine Screen,Urine Negative ng/ml (<25)
[2022-05-24 19:00] LABS: Occult Blood,Stool Positive (Negative)
[2022-05-24 20:26] VITALS: BP 128/56; PULSE 80; RESP 18; TEMP 36.8; O2SAT 95
--- NOTE | 2022-05-24 20:35 | PC.NURSE ---
patient up to floor via stretcher @ this time.
[2022-05-24 20:51] VITALS: BP 131/70; PULSE 88; RESP 20; TEMP 36.5; O2SAT 93
[2022-05-24 20:52] VITALS: BMI 22.4
[2022-05-25] VITALS (7 sets, daily range): BP systolic 78–103; BP diastolic 34–61; PULSE 62–79; RESP 17–20; TEMP 36.5–36.7; O2SAT 92–97; BMI 23.1
--- NOTE | 2022-05-25 04:35 | PC.NURSE ---
Pt is currently alert and oriented x4. At the beginning of the shift pt was lethargic and cool to the touch but temp was WNL. For 0000 vital signs the tech told this nurse that patient's BP was low. A manual BP of 88/42 was obtained. Pt received a 500ml bolus per MD Gutierrez. After the bolus Pt's BP was 100/42. Brush in place and draining bright yellow urine. She has had 750 so far this shift. Lung sounds are diminished bilaterally and tolerating room air well. Pt states that she is, feeling a little better . IV fluids remain at 150ml/hr and pt is tolerating well. At 0400 pt's pressure was 94/42. Pt is not symptomatic at this time. Pt has voiced no other complaints or concerns at this time.
[2022-05-25 07:29] LABS: Basophils % 0.1 % (0.1-2.0); Eosinophils % 0.2 % (0.1-12.0); Hematocrit 36.4 % (37.0-47.0); Hemoglobin 11.7 g/dL (12.2-16.2); Lymphocytes # 1.4 K/mm3 (0.7-4.5); Lymphocytes % 5.8 % (10-50); Mean Corpuscular HGB Conc 32.1 g/dL (31.8-35.4); Mean Corpuscular Hemoglobin 29.2 pg (27.0-31.2); Monocytes # 0.9 K/mm3 (0.1-1.0); Monocytes % 3.9 % (1.7-9.3); Platelet Count 169 K/mm3 (142-424); Red Blood Count 4.01 M/mm3 (4.20-5.40); Red Cell Distribution Width 14.1 % (11.5-17.5); White Blood Count 23.4 K/mm3 (4.8-10.8)
[2022-05-25 07:31] LABS: MANUAL DIFFERENTIAL MANUAL DIFFERENTIAL (MANUAL DIFF)
[2022-05-25 07:38] LABS: Alanine Aminotransferase 28 U/L (12-78); Albumin Level 3.3 g/dl (3.5-5.0); Albumin/Globulin Ratio 1.2 (1.1-1.8); Alkaline Phosphatase 56 U/L (38-126); Anion Gap 21.4 mEq/L (5-15); Aspartate Amino Transferase 96 U/L (14-36); Chloride 114 mmol/L (98-107); Creatinine Clearance Estimated 7 mL/min (50-200); Estimated Glomerular Filt Rate 5 ml/min (>60); GFR (African American) 7 ML/MIN (>60); Globulin 2.7 g/dL (1.3-3.2); Glucose 100 mg/dl (74-100); Potassium 5.4 mmoL/L (3.5-5.1); Sodium 140 mmol/L (136-145)
[2022-05-25 07:43] LABS: Lymphocytes % 7 % (10-50); Monocytes % 4 % (2-9); Neutrophils % 89 % (42-76); Platelet Estimate Normal; RBC Morphology Normal; Total Cells Counted 100
[2022-05-25 07:45] LABS: Bilirubin,Total < 0.1 mg/dl (0.2-1.3)
[2022-05-25 07:47] LABS: Blood Urea Nitrogen 139 mg/dl (7-17); Calcium 5.4 mg/dl (8.4-10.2); Carbon Dioxide 10 mmol/L (22.0-30.0)
--- NOTE | 2022-05-25 08:05 | PC.NURSE ---
Paged and spoke to Dr. Gutierrez about pt's blood pressure; patient non-symptomatic, alert and oriented X4. Also reported critical values of carbon dioxide 10, bun 139, security operations center analyst 7.4 and calcium 5.4. Verbal order for 1 liter of ns bolus. Will re-evaluate patient after bolus given.
--- NOTE | 2022-05-25 10:31 | HMH.HP ---
*Admission Date: 05/24/22 *Chief complaint: sepsis with organ dysfunction, uti, acute renal failure, hypotension *History of present illness: Brought in by ambulance. States that she has been sick for about 3 weeks. Primary complaint is that she is extremely generally weak. States that she has been having vomiting and diarrhea. Abdominal pain and chest pain. Shortness of breath. Fevers for the past few days. Decreased urinary output for a few days. Cough. Generalized pain. Reported to have pulse ox of 86% on room air upon EMS arrival. Put on 2 L nasal cannula oxygen during transport. Nursing staff took patient off of oxygen here to check pulse ox and she has been 96% on room air. She was given a liter of normal saline during transport as well. Home medication list includes loperamide prn, looks like it was called in 05-21-22. Patient is a marginal historian. She relays some pain in her lower abdomen and flanks. Brush in place draining clear yellow urine. Workup in the ER included labs and imaging studies. CT abdomen: IMPRESSION: 1. Scattered colonic diverticula, no extraluminal gas bubbles or pericolic fluid to confirm acute diverticulitis. 2. Some liquid stool in the colon which could be due to enterocolitis or diarrheal disease. Much of the distal colon is empty and contracted which likely accounts for slightly thickened appearance, though differential would be colitis. 3. There is no evidence of intestinal perforation or obstruction. 4. Coronary artery disease. 5. A previously reported right renal cyst seen on ultrasound measures 1.[address], with indeterminate HU density measurement of 33, probably complex cyst containing proteinaceous debris or hemorrhage. This is incompletely characterized on this nonenhanced exam, but had a simple appearance on the previous ultrasound. 6. Additional nonemergency and chronic findings as above. Lab studies were markedly abnormal. PPC=372 Creat=11.6 K=5.7 Urinalysis showed 2+ LE 4+ bact TNTC wbc urine culture showing gram negative rods preliminary Patient carries history of Takotsubo cardiomyopathy. C in may 2021 showed severe lv dysfunction with mild coronary vessel disease. Her creatinine on that occasion was 1.20 Home regimen includes aldactone, lasix, entresto. Patient was noted to be extremely dry upon presentation, with mucosal membranes parched. [facility] History Medical History: Reports:: Anxiety, Congestive Heart Failure, Chronic Obstructive Pulmonary Disease (COPD), Coronary Artery Disease, Cerebrovascular Accident, Depression, Hyperlipidemia, Hypertension, Myocardial Infarction, Osteoporosis, Palpitations, Renal Insufficiency, Valvular Heart Disease Denies:: Cancer, Diabetes Mellitus Type 1, Diabetes Mellitus Type 2, Internal Pacemaker, MRSA, Seizures *Have you ever received a pneumonia vaccine?: Yes *Have you received a flu vaccine this season?: No Other Medical History: Reports: Arthritis, Fibromyalgia, Liver Disease, Osteoporosis, Other (DDD) Other Surgeries: Yes: Cardiac Catheterization, Colonoscopy, Coronary Stent, Tubal Ligation, Other. No: Pacemaker Amputation: No Fractures: Yes (right wrist) - *Social History Smoking Status: Former smoker Tobacco Type: cigarettes # Packs/Day (cigarettes): 1 Alcohol Intake: never Substance Use Type: denies use *Occupational Status:: unemployed Housing: house Household Members: family *Travel in the last 8 weeks: None - Psychiatric History Pschychiatric History:: Reports:: Anxiety, Depression Family Hx:: Cancer, Diabetes Review of Systems - Constitutional Reports anorexia, Reports fatigue, Reports lack of energy, Reports malaise, Reports weakness - Eyes Denies change in vision - ENT Denies abnormal hearing - *Cardiovascular Denies chest pain, Denies shortness of breath - *Respiratory Reports cough, Denies change in phlegm color, Denies chest congestion, D
--- NOTE | 2022-05-25 11:07 | HMH.PHAINT ---
MEDICATION RECONCILIATION COMPLETE USING LIST FROM MOST RECENT MD OFFICE VISIT (APRIL 2022) AND EXTERNAL PHARMACY FILL HISTORY.
--- NOTE | 2022-05-25 11:07 | HMH.PHAVTE ---
[facility] Pharmacy VTE Monitoring - Patient Demographics Admission date: 05/24/22 Report Date: 05/25/22 Time: 11:07 Allergies/Adverse Reactions: Patient Allergies acetaminophen [From DARVOCET-N] Allergy (Unknown, Verified 05/06/22 15:45) Unknown allergy reaction codeine [CODEINE] Allergy (Unknown, Verified 05/06/22 15:45) Unknown allergy reaction propoxyphene [From DARVOCET-N] Allergy (Unknown, Verified 05/06/22 15:45) Unknown allergy reaction tomato Adverse Reaction (Mild, Verified 05/06/22 15:45) Gastrointestinal Upset Height: 1.57 m Weight: 56.971 kg Patient Problems: Current Active Problems Sepsis (Acute) Urinary tract infection (Acute) Dehydration (Acute) Acute renal failure (Acute) - VTE Risk Labs: VTE Related Lab Results Hgb 11.7 g/dL (12.2-16.2) L 05/25/22 06:53 Hct 36.4 % (37.0-47.0) L 05/25/22 06:53 Plt Count 169 K/mm3 (142-424) 05/25/22 06:53 BUN 139 mg/dl (7-17) H* 05/25/22 06:53 Creatinine 7.40 mg/dl (0.52-1.04) H D 05/25/22 06:53 Estimated Creat Clear 7 mL/min (50-200) 05/25/22 06:53 Was VTE Risk Assessment Performed: Yes VTE Score: 10 VTE Risk Level: Moderate Risk Clinical Trial Participant: No - Prophylaxis VTE Prophylaxis Ordered?: Yes Types of VTE Prophylaxis: TEDS Knee High Location of Applied Device: Refused
--- NOTE | 2022-05-25 18:15 | PC.NURSE ---
Patient had several bowel movements at beginning of shift. Attempted to obtain diarrhea panel but patient would not call when initiating bowel movement and bowel was too loose to obtain sample. Patient remained on room air. Oxycodone 5mg given for chronic back pain. BP remained low during day after bolus but patient not symptomatic, alert and oriented. Dr. Gutierrez notified and no other orders given.
[2022-05-26] VITALS: BP 96/39; PULSE 77; RESP 16; TEMP 36.7; O2SAT 96
[2022-05-26 03:31] VITALS: BP 99/45; PULSE 72; RESP 18; TEMP 36.6; O2SAT 97
[2022-05-26 04:43] VITALS: BMI 24.0
--- NOTE | 2022-05-26 04:57 | PC.NURSE ---
Pt alert and oriented x 4. Pt has slept majority of my shift. Medicated per DEC once for pain. Dr. Gutierrez contacted this shift for BP of 96/39 (map - 58). No new orders at this time. Pt states she feels ok and normally has low blood pressure. IV fluids infusing per order. Giving ATBX as ordered. Pt has had no complaints. Pt is voiding per briggs catheter with good urine output. Still attempting to collect diarrhea panel at this time. Bed alarm on for safety. Call light in reach.
[2022-05-26 06:27] LABS: Basophils # 0.1 K/mm3 (0-0.2); Basophils % 0.2 % (0.1-2.0); Eosinophils # 0.1 K/mm3 (0.0-0.4); Eosinophils % 0.4 % (0.1-12.0); Hematocrit 33.8 % (37.0-47.0); Hemoglobin 11.5 g/dL (12.2-16.2); Lymphocytes # 1.7 K/mm3 (0.7-4.5); Lymphocytes % 7.1 % (10-50); Mean Corpuscular HGB Conc 33.9 g/dL (31.8-35.4); Mean Corpuscular Hemoglobin 31.3 pg (27.0-31.2); Mean Corpuscular Volume 92.3 fl (81-99); Mean Platelet Volume 12.8 fl (7.4-10.4); Monocytes # 0.7 K/mm3 (0.1-1.0); Monocytes % 3.1 % (1.7-9.3); Neutrophils % 89.2 % (37.0-80.0); Platelet Count 169 K/mm3 (142-424); Red Blood Count 3.66 M/mm3 (4.20-5.40); Red Cell Distribution Width 14.2 % (11.5-17.5)
[2022-05-26 06:28] LABS: White Blood Count 23.5 K/mm3 (4.8-10.8)
[2022-05-26 06:29] LABS: MANUAL DIFFERENTIAL MANUAL DIFFERENTIAL (MANUAL DIFF)
[2022-05-26 06:37] LABS: Chloride 123 mmol/L (98-107); Potassium 4.4 mmoL/L (3.5-5.1); Sodium 147 mmol/L (136-145)
[2022-05-26 06:40] LABS: Alanine Aminotransferase 38 U/L (12-78); Albumin Level 3.2 g/dl (3.5-5.0); Albumin/Globulin Ratio 1.2 (1.1-1.8); Alkaline Phosphatase 64 U/L (38-126); Anion Gap 18.4 mEq/L (5-15); Aspartate Amino Transferase 105 U/L (14-36); Creatinine Clearance Estimated 20 mL/min (50-200); Estimated Glomerular Filt Rate 18 ml/min (>60); GFR (African American) 22 ML/MIN (>60); Globulin 2.7 g/dL (1.3-3.2); Total Protein,Serum 5.9 g/dl (6.3-8.2)
[2022-05-26 06:41] LABS: Glucose 103 mg/dl (74-100)
[2022-05-26 06:48] LABS: Bilirubin,Total 0.1 mg/dl (0.2-1.3)
[2022-05-26 06:50] LABS: Blood Urea Nitrogen 91 mg/dl (7-17); Calcium 5.3 mg/dl (8.4-10.2); Carbon Dioxide 10 mmol/L (22.0-30.0)
[2022-05-26 06:55] LABS: Lymphocytes % 13 % (10-50); Monocytes % 5 % (2-9); Neutrophils % 77 % (42-76); Platelet Estimate Normal; RBC Morphology Normal; Total Cells Counted 100
[2022-05-26 07:00] LABS: Adenovirus F 40/41, stool Not Detected (NotDetected); Astrovirus Not Detected (NotDetected); Campylobacter Not Detected (NotDetected); Clostridium Difficile A/B, PCR Not Detected (NotDetected); Cryptosporidium Not Detected (NotDetected); Cyclospora Cayetanesis Not Detected (NotDetected); Entamoeba histolytica Not Detected (NotDetected); Enteroaggregative E coli Not Detected (NotDetected); Enteropathogenic E coli Not Detected (NotDetected); Enterotoxigenic E coli Not Detected (NotDetected); Giardia lamblia Not Detected (NotDetected); Norovirus Not Detected (NotDetected); Plesimonas Shigalloides, PCR Not Detected (NotDetected); Rotavirus A Not Detected (NotDetected); Salmonella, PCR Not Detected (NotDetected); Sapovirus Not Detected (NotDetected); Shiga-like toxin E coli Not Detected (NotDetected); Shigella Enterovasive E coli Not Detected (NotDetected); Vibrio Cholerae Not Detected (NotDetected); Vibrio, PCR Not Detected (NotDetected); Yersinia Entercolitica, PCR Not Detected (NotDetected)
--- NOTE | 2022-05-26 07:00 | PC.NURSE ---
Was able to obtain a small amt of stool. Sent to lab.
[2022-05-26 08:00] VITALS: BP 105/51; PULSE 71; RESP 18; TEMP 36; O2SAT 98
--- NOTE | 2022-05-26 09:06 | HMH.ACPN2 ---
Internal Medicine - PN: Subj *Date: 05/27/22 *Time: 06:04 Interval history: doing better but still weak and has improved renal function Exam Vital signs and Labs for Last 24 Hours: Temp Pulse Resp BP Pulse Ox 96.8 F L 71 18 105/51 L 98 05/26/22 08:00 05/26/22 08:00 05/26/22 08:00 05/26/22 08:00 05/26/22 08:00 Laboratory Results - last 24 hr 05/26/22 06:17: WBC 23.5 H*, RBC 3.66 L, Hgb 11.5 L, Hct 33.8 L, MCV 92.3, MCH 31.3 H, MCHC 33.9, RDW 14.2, Plt Count 169, MPV 12.8 H, Neut % (Auto) 89.2 H, Lymph % (Auto) 7.1 L, [place] % (Auto) 3.1, Eos % (Auto) 0.4, Baso % (Auto) 0.2, Neut # (Auto) 21.0 H, Lymph # (Auto) 1.7, [place] # (Auto) 0.7, Eos # (Auto) 0.1, Baso # (Auto) 0.1, Total Counted 100, Neutrophils % (Manual) 77 H, Band Neutrophils % 5.0, Lymphocytes % (Manual) 13, Monocytes % (Manual) 5, Platelet Estimate Normal, RBC Morphology Normal 05/26/22 06:17: Sodium 147 H, Potassium 4.4, Chloride 123 H, Carbon Dioxide 10 L, Anion Gap 18.4 H, BUN 91 H D, Creatinine 2.60 H D, Estimated Creat Clear 20, Estimated GFR 18 L*, Est GFR ( Amer) 22 L D, Glucose 103 H, Calcium 5.3 L*, Total Bilirubin 0.1 L, AST 105 H, ALT 38 D, Alkaline Phosphatase 64, Total Protein 5.9 L, Albumin 3.2 L, Globulin 2.7, Albumin/Globulin Ratio 1.2 I & O for Last 24 hours: Intake & Output 05/23/22 05/24/22 05/25/22 05/26/22 11:59 11:59 11:59 11:59 Intake Total 2139 / 2139 4463 / 4463 Output Total 1150 / 1150 2400 / 2400 Balance 989 / 989 2063 / 2063 Weight 125 lb 9.6 oz 130 lb 14.4 oz Microbiology Reports for the Last 24 Hours: Microbiology 05/24/22 18:25 Urine,Clean Catch Urine Culture - Final Klebsiella pneumoniae ozaenae - Constitutional no acute distress - *Routine HEENT Exam Head: Present: normocephalic Eye: Present: EOMI, PERRL ENT: Present: mucous membranes dry - *Routine Neck Exam Absent: JVD - *Routine Respiratory Exam Present: decreased breath sounds - *Routine Cardiovascular Exam Present: RRR, murmur - *Routine Abdominal Exam Present: soft - *Routine Extremities Exam Absent: calf tenderness - *Routine Skin Exam Present: intact - *Routine Neurological Exam Present: alert, CN II-XII intact - Routine Psychiatric Exam Present: cooperative Assessment and Plan (1) Sepsis Status: Acute Qualifiers: Sepsis type: sepsis due to unspecified organism Sepsis acute organ dysfunction status: with acute organ dysfunction Severe sepsis acute organ dysfunction type: acute renal failure Acute renal failure type: unspecified Severe sepsis shock status: without septic shock Qualified Code(s): A41.9 - Sepsis, unspecified organism; R65.20 - Severe sepsis without septic shock; N17.9 - Acute kidney failure, unspecified Category: Medical Code(s): A41.9 - Sepsis, unspecified organism (2) Acute renal failure Status: Acute Qualifiers: Acute renal failure type: unspecified Qualified Code(s): N17.9 - Acute kidney failure, unspecified Category: Medical Code(s): N17.9 - Acute kidney failure, unspecified (3) Dehydration Status: Acute Category: Medical Code(s): E86.0 - Dehydration (4) Urinary tract infection Status: Acute Qualifiers: Urinary tract infection type: site unspecified Hematuria presence: without hematuria Qualified Code(s): N39.0 - Urinary tract infection, site not specified Category: Medical Code(s): N39.0 - Urinary tract infection, site not specified (5) CKD (chronic kidney disease) Status: Chronic Category: Medical Code(s): N18.9 - Chronic kidney disease, unspecified (6) Diarrhea Status: Acute Category: Medical Code(s): R19.7 - Diarrhea, unspecified (7) Gastroenteritis Status: Acute Category: Medical Code(s): K52.9 - Noninfective gastroenteritis and colitis, unspecified (8) Anxiety Status: Chronic Category: Medical Code(s): F41.9 - Anxiety disorder, unspecified
--- NOTE | 2022-05-26 09:50 | HMH.CNCARD ---
History of Present Illness Consult date: 05/26/22 Requesting physician: Ho Gutierrez Chief complaint: weakness Additional Medical History:: Past medical hx Severe LV dysfunction Mild CAD Hx of Takotsubo syndrome Chronic low back pain History of present illness: Patient is poor historian, most of information obtained from medical chart: 66-year-old white female, with above past medical history presented to ER 05/24 with complaint of generalized weakness, nausea/vomiting/diarrhea and generalized abdominal pain x3 weeks with intermittent fever. Upon presentation to ER EKG showed normal sinus rhythm with a rate of 82. Labs were significant for: wbc 26.1, sodium 134, potassium 5.7, creatinine 11.6, BUN 153. Urine was positive for 2+ Leuk esterase and 4+ bacteria. Stool positive for occult blood. Chest xray negative for acute process. CT abdomen pelvis showed possible enterocolitis. Patient was admitted for dehydration, libra, and sepsis. Cardiology asked to consult due to hx of CHF and cad. Patient denies chest pain or soa. [facility] History Medical History: Reports:: Anxiety, Congestive Heart Failure, Chronic Obstructive Pulmonary Disease (COPD), Coronary Artery Disease, Cerebrovascular Accident, Depression, Hyperlipidemia, Hypertension, Myocardial Infarction, Osteoporosis, Palpitations, Renal Insufficiency, Valvular Heart Disease Denies:: Cancer, Diabetes Mellitus Type 1, Diabetes Mellitus Type 2, Internal Pacemaker, MRSA, Seizures *Have you ever received a pneumonia vaccine?: Yes *Have you received a flu vaccine this season?: No Other Medical History: Reports: Arthritis, Fibromyalgia, Liver Disease, Osteoporosis, Other (DDD) Other Surgeries: Yes: Cardiac Catheterization, Colonoscopy, Coronary Stent, Tubal Ligation, Other. No: Pacemaker Amputation: No Fractures: Yes (right wrist) - *Social History Smoking Status: Former smoker Tobacco Type: cigarettes # Packs/Day (cigarettes): 1 Alcohol Intake: never Substance Use Type: denies use *Occupational Status:: unemployed Housing: house Household Members: family *Travel in the last 8 weeks: None - Psychiatric History Pschychiatric History:: Reports:: Anxiety, Depression Family Hx:: Cancer, Diabetes Meds Home Medications Medication Instructions Recorded Confirmed Type atorvastatin 20 mg tablet 20 mg PO HS #90 tab 05/06/22 05/24/22 Rx bisoprolol fumarate 5 mg tablet 2.5 mg PO DAILY #90 tab 05/06/22 05/24/22 Rx diclofenac sodium 1 % topical gel 4 g TOPICAL QIDP PRN #1 applic 05/06/22 05/24/22 Rx escitalopram oxalate 20 mg tablet 20 mg PO DAILY #90 tab 05/06/22 05/24/22 Rx gabapentin 800 mg tablet 800 mg PO TID #90 tab 05/06/22 05/24/22 Rx ipratropium 20 mcg-albuterol 100 2 puff IH QID #1 each 05/06/22 05/24/22 Rx mcg/actuation mist for inhalation omeprazole 20 mg capsule,delayed 20 mg PO DAILY #90 cap 05/06/22 05/24/22 Rx release oxybutynin chloride 10 mg 10 mg PO DAILY #90 tab 05/06/22 05/24/22 Rx tablet,extended release 24 hr Clopidogrel Bisulfate [Plavix] 75 mg PO DAILY 05/24/22 05/24/22 History Oxycodone HCl 10 mg PO QID 05/24/22 05/24/22 History clonazePAM [Clonazepam] 0.5 mg PO BID 05/24/22 05/24/22 History Albuterol Sulfate [Albuterol 2 puff PO Q6HP PRN 05/25/22 05/25/22 History Sulfate Hfa] Aspirin [Aspirin 81mg EC Tab] 81 mg PO DAILY 05/25/22 05/25/22 History Furosemide [Furosemide 40MG tAB*] 40 mg PO DAILY 05/25/22 05/24/22 History Loperamide HCl [Imodium A-D] 2 mg PO Q6HP PRN 05/25/22 05/25/22 History Loratadine [Allergy Relief] 10 mg PO DAILY 05/25/22 05/24/22 History Promethazine HCl [Phenergan 25mg 25 mg PO Q8HP PRN 05/25/22 05/25/22 History tab] Sacubitril/Valsartan [Entresto 1 tab PO BID 05/25/22 05/25/22 History 24/26mg Tablet] Spironolactone 100 mg PO DAILY 05/25/22 05/24/22 History Allergies Allergy/AdvReac Type Severity Reaction Status Date / Time acetaminophen Allergy Unknown Unknown Verified 05/06/22 15:45 [From [facility]] allergy
--- NOTE | 2022-05-26 09:50 | PC.NURSE ---
PT'S BROTHER WAS IN ROOM VISITING PT. HE CAME TO THIS RN AND ASKED IF I WOULD COME INTO ROOM AND DISCUSS SOME THINGS WITH PT. PT AND BROTHER BOTH STATED THAT THEY WOULD LIKE TO CHANGE PASSWORD TO [facility] AND DISCONNECT ROOM PHONE SO THAT OTHER FAMILY MEMBERS COULD NOT CALL PT BECAUSE THEY CAUSE DRAMA AND GIVE PT ANXIETY . THIS RN CHANGED PASSWORD ON PT REPORT SHEET AND DISCONNECTED ROOM TELEPHONE. AFTER BROTHER LEFT THE [facility] DEPT THIS RN REENTERED ROOM AND ASKED PT IS THOSE WERE TRULY HER WISHES. SHE STATED THAT YES SHE DOES WANT ROOM PHONE UNPLUGGED AND PASSWORD CHANGED TO [facility]
[2022-05-26 11:49] VITALS: BP 113/48; PULSE 75; RESP 18; TEMP 36.8; O2SAT 95
--- NOTE | 2022-05-26 14:02 | PC.NURSE ---
rounded on patient, who was resting in bed. did easily awaken when staff walks in room. no concerns or questions. stated everything had been well and she was doing okay, had been offered baths, and educated on importance of daily baths. encouraged her to ring out as needed.
[2022-05-26 15:22] VITALS: BMI 24.0
[2022-05-26 16:00] VITALS: BP 135/56; PULSE 58; RESP 18; TEMP 36.6; O2SAT 96
[2022-05-26 20:00] VITALS: BP 127/68; PULSE 67; RESP 20; TEMP 36.4; O2SAT 96
[2022-05-27] VITALS: BP 138/60; PULSE 64; RESP 20; TEMP 36.9; O2SAT 95
[2022-05-27 04:00] VITALS: BP 146/60; PULSE 84; RESP 18; TEMP 37.1; O2SAT 96
[2022-05-27 05:00] VITALS: BMI 23.7
--- NOTE | 2022-05-27 06:11 | PC.NURSE ---
Pt has c/o nausea/vomiting 2x t/o shift. Pt has had multiple liquid yellow foul smelling stools during shift. Diarrhea panel pending. Bed alarm on for safety. Call light within reach.
[2022-05-27 07:22] LABS: Basophils # 0.1 K/mm3 (0-0.2); Basophils % 0.2 % (0.1-2.0); Eosinophils # 0.1 K/mm3 (0.0-0.4); Eosinophils % 0.3 % (0.1-12.0); Hematocrit 37.3 % (37.0-47.0); Hemoglobin 11.7 g/dL (12.2-16.2); Lymphocytes # 1.2 K/mm3 (0.7-4.5); Lymphocytes % 4.3 % (10-50); Mean Corpuscular HGB Conc 31.3 g/dL (31.8-35.4); Mean Corpuscular Volume 92.7 fl (81-99); Mean Platelet Volume 12.5 fl (7.4-10.4); Monocytes # 0.5 K/mm3 (0.1-1.0); Monocytes % 1.9 % (1.7-9.3); Neutrophils # 26.1 K/mm3 (1.8-7.8); Neutrophils % 93.2 % (37.0-80.0); Platelet Count 207 K/mm3 (142-424); Red Blood Count 4.02 M/mm3 (4.20-5.40); Red Cell Distribution Width 14.3 % (11.5-17.5)
[2022-05-27 07:29] LABS: Anion Gap 19.9 mEq/L (5-15); Blood Urea Nitrogen 48 mg/dl (7-17); Creatinine Clearance Estimated 36 mL/min (50-200); Estimated Glomerular Filt Rate 38 ml/min (>60); GFR (African American) 45 ML/MIN (>60); Glucose 117 mg/dl (74-100); Potassium 3.9 mmoL/L (3.5-5.1)
[2022-05-27 07:33] LABS: Calcium 5.2 mg/dl (8.4-10.2); Carbon Dioxide 9 mmol/L (22.0-30.0); Chloride 126 mmol/L (98-107); Sodium 151 mmol/L (136-145)
[2022-05-27 07:51] LABS: MANUAL DIFFERENTIAL MANUAL DIFFERENTIAL (MANUAL DIFF)
[2022-05-27 08:00] VITALS: BP 146/65; PULSE 95; RESP 18; TEMP 36.8; O2SAT 94
[2022-05-27 08:28] LABS: Lymphocytes % 6 % (10-50); Monocytes % 1 % (2-9); Neutrophils % 93 % (42-76); Total Cells Counted 100
[2022-05-27 08:29] LABS: Platelet Estimate Normal; RBC Morphology Normal
--- NOTE | 2022-05-27 09:02 | XR_ITS ---
FINAL REPORT CLINICAL HISTORY: CHF COMPARISON: May 24, 2022 FINDINGS: A single portable view of the chest was obtained. The heart size and pulmonary vascularity are within normal limits. The mediastinum is within normal limits. There is worsening right lung base opacity consistent with worsening atelectasis or pneumonia. The bony thorax is intact. IMPRESSION: Worsening right lung base atelectasis or pneumonia. Reviewed, Interpreted and Dictated by Damian Valles III, MD Transcribed by [facility] Authenticated and [facility]
--- NOTE | 2022-05-27 09:55 | HMH.PNCARD ---
Subjective Date: 05/27/22 Time: 09:59 Principal diagnosis: sepsis, dehydration, uti, donnie Interval history: patient confused and sleepy this am but did get dose of phenergan earlier. WBC increased to 28, sodium 151, potassium 3.9, creatinine down to 1.4. Primary service reducing fluids. vitals stable, will restart entresto and bisoprolol today. no signs of volume overload present. Exam Vital signs and Labs for Last 24 Hours: Temp Pulse Resp BP Pulse Ox 98.2 F 95 H 18 146/65 H 94 L 05/27/22 08:00 05/27/22 08:00 05/27/22 08:00 05/27/22 08:00 05/27/22 08:00 Laboratory Results - last 24 hr 05/26/22 : Stl Aeromonas (PCR) Not detected, Stl C. cayetanensis PCR Not detected, Stool Rotavirus (PCR) Not detected, Stl Adenov F 40/41 PCR Not detected, Stool Astrovirus (PCR) Not detected, Stool Campylobacter PCR Not detected, Stl C.difficile Tox PCR Not detected, Stool Cryptosporidium PCR Not detected, Stl E.coli Shiga Tox PCR Not detected, Stool E coli O157 PCR Not detected, Stl Enterotoxigenic E PCR Not detected, Stool EPEC (PCR) Not detected, Stool EAEC (PCR) Not detected, Stl E. histolytica PCR Not detected, Stool Giardia Lamblia PCR Not detected, Stool Salmonella PCR Not detected, Stool Sapovirus (PCR) Not detected, Stl P. shigelloides PCR Not detected, Stl Shigella/EIEC PCR Not detected, St Y.enterocolitica PCR Not detected, Stool Vibrio (PCR) Not detected, Stl Vibrio cholerae PCR Not detected, Stl Norovirus GI/GII PCR Not detected 05/27/22 07:12: WBC 28.0 H*, RBC 4.02 L, Hgb 11.7 L, Hct 37.3, MCV 92.7, MCH 29.0, MCHC 31.3 L, RDW 14.3, Plt Count 207, MPV 12.5 H, Neut % (Auto) 93.2 H, Lymph % (Auto) 4.3 L, [place] % (Auto) 1.9, Eos % (Auto) 0.3, Baso % (Auto) 0.2, Neut # (Auto) 26.1 H, Lymph # (Auto) 1.2, [place] # (Auto) 0.5, Eos # (Auto) 0.1, Baso # (Auto) 0.1, Total Counted 100, Neutrophils % (Manual) 93 H, Lymphocytes % (Manual) 6 L, Monocytes % (Manual) 1 L, Platelet Estimate Normal, RBC Morphology Normal 05/27/22 07:12: Sodium 151 H*, Potassium 3.9, Chloride 126 H, Carbon Dioxide 9 L*, Anion Gap 19.9 H, BUN 48 H D, Creatinine 1.40 H D, Estimated Creat Clear 36, Estimated GFR 38 L, Est GFR ( Amer) 45 L D, Glucose 117 H, Calcium 5.2 L* I & O for Last 24 hours: Intake & Output 05/24/22 05/25/22 05/26/22 05/27/22 23:59 23:59 23:59 23:59 Intake Total 4562 / 4562 5443 / 5443 1704 / 1704 Output Total 1950 / 1950 3600 / 4200 1100 / 1100 Balance 2612 / 2612 1843 / 1243 604 / 604 Weight 122 lb 5 oz 125 lb 9.6 oz 130 lb 11.746 oz 128 lb 14.4 oz Microbiology Reports for the Last 24 Hours: Microbiology 05/24/22 17:56 Blood Blood Culture - Preliminary NO GROWTH AFTER 48 HOURS 05/24/22 17:56 Blood Blood Culture - Preliminary NO GROWTH AFTER 48 HOURS 05/24/22 18:25 Urine,Clean Catch Urine Culture - Final Klebsiella pneumoniae ozaenae - *Routine Respiratory Exam Present: CTA bilaterally - *Routine Cardiovascular Exam Present: RRR - *Routine Extremities Exam Absent: cyanosis, clubbing, edema Progress Note: A&P (1) Sepsis Status: Acute (2) Acute renal failure Status: Acute (3) Dehydration Status: Acute (4) Urinary tract infection Status: Acute (5) CKD (chronic kidney disease) Status: Chronic (6) Diarrhea Status: Acute (7) Gastroenteritis Status: Acute (8) Anxiety Status: Chronic (9) Back Pain Status: Chronic (10) CAD (coronary artery disease) Status: Chronic (11) HTN (hypertension) Status: Chronic (12) History of CVA (cerebrovascular accident) Status: Chronic (13) DONNIE (acute kidney injury) Status: Acute (14) Dehydration Status: Acute Assessment and Plan for All Diagnoses:: DONNIE -Initially 11, has improved with fluids to 1.4. sodium 151. advise to decrease fluids. no signs of volume overload noted. Acute sepsis -Per primary service CAD -
[2022-05-27 11:22] VITALS: BP 157/75; PULSE 74; RESP 16; TEMP 36.8; O2SAT 97
--- NOTE | 2022-05-27 11:23 | HMH.ACPN2 ---
Internal Medicine - PN: Subj *Date: 05/27/22 *Time: 19:12 Interval history: 66-year-old female patient sitting up in bed resting quietly with eyes open, she is more confused today than yesterday, did receive a dose of Phenergan less than an hour ago. BUN today 47, creatinine 1.4, will change IV fluids to half-normal saline and decrease rate to 50 mL/h. Urine revealed Klebsiella pneumonia and is sensitive to the ceftriaxone she has been receiving IV. Exam Vital signs and Labs for Last 24 Hours: Temp Pulse Resp BP Pulse Ox 98.2 F 95 H 18 146/65 H 94 L 05/27/22 08:00 05/27/22 08:00 05/27/22 08:00 05/27/22 08:00 05/27/22 08:00 Laboratory Results - last 24 hr 05/26/22 : Stl Aeromonas (PCR) Not detected, Stl C. cayetanensis PCR Not detected, Stool Rotavirus (PCR) Not detected, Stl Adenov F 40/41 PCR Not detected, Stool Astrovirus (PCR) Not detected, Stool Campylobacter PCR Not detected, Stl C.difficile Tox PCR Not detected, Stool Cryptosporidium PCR Not detected, Stl E.coli Shiga Tox PCR Not detected, Stool E coli O157 PCR Not detected, Stl Enterotoxigenic E PCR Not detected, Stool EPEC (PCR) Not detected, Stool EAEC (PCR) Not detected, Stl E. histolytica PCR Not detected, Stool Giardia Lamblia PCR Not detected, Stool Salmonella PCR Not detected, Stool Sapovirus (PCR) Not detected, Stl P. shigelloides PCR Not detected, Stl Shigella/EIEC PCR Not detected, St Y.enterocolitica PCR Not detected, Stool Vibrio (PCR) Not detected, Stl Vibrio cholerae PCR Not detected, Stl Norovirus GI/GII PCR Not detected 05/27/22 07:12: WBC 28.0 H*, RBC 4.02 L, Hgb 11.7 L, Hct 37.3, MCV 92.7, MCH 29.0, MCHC 31.3 L, RDW 14.3, Plt Count 207, MPV 12.5 H, Neut % (Auto) 93.2 H, Lymph % (Auto) 4.3 L, [place] % (Auto) 1.9, Eos % (Auto) 0.3, Baso % (Auto) 0.2, Neut # (Auto) 26.1 H, Lymph # (Auto) 1.2, [place] # (Auto) 0.5, Eos # (Auto) 0.1, Baso # (Auto) 0.1, Total Counted 100, Neutrophils % (Manual) 93 H, Lymphocytes % (Manual) 6 L, Monocytes % (Manual) 1 L, Platelet Estimate Normal, RBC Morphology Normal 05/27/22 07:12: Sodium 151 H*, Potassium 3.9, Chloride 126 H, Carbon Dioxide 9 L*, Anion Gap 19.9 H, BUN 48 H D, Creatinine 1.40 H D, Estimated Creat Clear 36, Estimated GFR 38 L, Est GFR ( Amer) 45 L D, Glucose 117 H, Calcium 5.2 L* I & O for Last 24 hours: Intake & Output 05/24/22 05/25/22 05/26/22 05/27/22 23:59 23:59 23:59 23:59 Intake Total 4562 / 4562 5443 / 5443 1704 / 1704 Output Total 1950 / 1950 3600 / 4200 1100 / 1100 Balance 2612 / 2612 1843 / 1243 604 / 604 Weight 122 lb 5 oz 125 lb 9.6 oz 130 lb 11.746 oz 128 lb 14.4 oz Microbiology Reports for the Last 24 Hours: Microbiology 05/24/22 17:56 Blood Blood Culture - Preliminary NO GROWTH AFTER 48 HOURS 05/24/22 17:56 Blood Blood Culture - Preliminary NO GROWTH AFTER 48 HOURS - Constitutional no acute distress, chronically ill appearing - *Routine HEENT Exam Head: Present: normocephalic Eye: Present: EOMI ENT: Present: mucous membranes moist - *Routine Neck Exam Present: trachea midline. Absent: tracheal deviation - *Routine Respiratory Exam Present: wheezes. Absent: accessory muscle use - *Routine Cardiovascular Exam Present: RRR - *Routine Abdominal Exam Present: soft, normoactive bowel sounds. Absent: tenderness, firm - *Routine Extremities Exam Present: full ROM, pulses intact. Absent: cyanosis, clubbing, edema - *Routine Skin Exam Present: intact, dry. Absent: cyanosis, erythema - *Routine Neurological Exam Present: altered mental status - Routine Psychiatric Exam Present: unable to assess Assessment and Plan (1) Sepsis Status: Acute Qualifiers: Sepsis type: sepsis due to unspecified organism Sepsis acute organ dysfunction status: with acute organ dysfunction Severe sepsis acute organ dysfunction type: acute renal failure Acute renal failure type: unspecified Severe se
[2022-05-27 12:47] LABS: Ammonia 18 umol/L (9-30)
[2022-05-27 13:14] LABS: Chloride 124 mmol/L (98-107)
[2022-05-27 13:15] LABS: Potassium 3.7 mmoL/L (3.5-5.1)
[2022-05-27 13:17] LABS: Blood Urea Nitrogen 47 mg/dl (7-17); Creatinine Clearance Estimated 36 mL/min (50-200); Estimated Glomerular Filt Rate 38 ml/min (>60); GFR (African American) 45 ML/MIN (>60)
[2022-05-27 13:18] LABS: Anion Gap 19.7 mEq/L (5-15); Carbon Dioxide 12 mmol/L (22.0-30.0); Glucose 166 mg/dl (74-100)
[2022-05-27 13:30] LABS: Troponin I 0.09 ng/ml (0.00-0.034)
[2022-05-27 13:42] LABS: Sodium 152 mmol/L (136-145)
--- NOTE | 2022-05-27 13:44 | PC.NURSE ---
rounded on patient. no concerns or needs noted. noted patient was confused. bed alarm is on.
[2022-05-27 15:05] VITALS: BP 118/63; PULSE 53; RESP 18; TEMP 36.4; O2SAT 95
--- NOTE | 2022-05-27 17:21 | PC.NURSE ---
PT HAS BEEN ALERT TO NAME AND BIRTHDAY ONLY, SLEEPING MOST OF SHIFT.PT HAD NAUSEA IN THE AM, NO C/O SINCE THEN. VSS. 97% ON RA, TOLERATING WELL. PIERRE CATH IN PLACE WITH CLEAR YELLOW URINE, PT HAS HAD 150ML UO THIS SHIFT. CAULDER NOTIFIED, BMP ORDERED FOR 1999, INCREASE D5 2% NS TO 150ML/HR. CALL CAULDER BACK AT 2100 WITH UPDATE OF UO AND LAB RESULTS.
--- NOTE | 2022-05-27 17:51 | PC.NURSE ---
PT HAS BEEN ALERT TO NAME AND BDAY ONLY, SLEEPING MOST OF SHIFT. C/O NAUSEA IN THE AM, NO COMPLAINTS SINCE THEN. VSS, 97% ON RA, TOLERATING WELL. PIERRE CATH IN PLACE WITH CLEAR YELLOW URINE. UO 150ML THIS SHIFT. JOHNSON NOTIFIED, BMP ORDERED FOR 1999, INCREASE D5 2% NS TO 150ML/HR. CALL JOHNSON BACK AT 2100 WITH UPDATE OF UO AND LABS.
--- NOTE | 2022-05-27 18:40 | PC.NURSE ---
PT HAS BEEN ALERT TO NAME AND BDAY ONLY. SPOKE WITH JOHNSON REGARDING PTS STATUS, HE SAID TO INCREASE D5 2% NS TO 150 AND REPEAT BMP AT 1999. PIERRE IN PLACE WITH 900ML CLEAR YELLOW, UO T/O SHIFT. RA TOLERATING WELL AT 97%. PT HAS ATE LESS THAN 25% AT EACH MEAL. CB AND PERSONAL ITEMS WITHIN REACH.
[2022-05-27 20:00] VITALS: BP 152/55; PULSE 55; RESP 20; TEMP 36.4; O2SAT 97
[2022-05-27 20:44] LABS: Blood Urea Nitrogen 42 mg/dl (7-17); Creatinine Clearance Estimated 42 mL/min (50-200); Estimated Glomerular Filt Rate 45 ml/min (>60); GFR (African American) 54 ML/MIN (>60)
[2022-05-27 20:45] LABS: Calcium 5.9 mg/dl (8.4-10.2); Carbon Dioxide 14 mmol/L (22.0-30.0); Glucose 123 mg/dl (74-100)
[2022-05-27 21:05] LABS: Anion Gap 15.8 mEq/L (5-15); Chloride 119 mmol/L (98-107); Potassium 3.8 mmoL/L (3.5-5.1); Sodium 145 mmol/L (136-145)
[2022-05-28] VITALS (8 sets, daily range): BP systolic 130–156; BP diastolic 53–77; PULSE 47–66; RESP 16–22; TEMP 36.4–36.9; O2SAT 96–100; BMI 23.3
--- NOTE | 2022-05-28 04:48 | PC.NURSE ---
Pt has complained of nausea/stomach pain and cramps t/o night. Zofran administered with some relief. Phenergan administered, pt states better relief. Brush in place draining cloudy yellow/brown urine. Pt resting comfortably in bed at this time. Call light within reach.
--- NOTE | 2022-05-28 06:41 | PC.NURSE ---
Ptsat drooping to low 80s while asleep, 2 L nc applied to pt
[2022-05-28 07:05] LABS: Chloride 120 mmol/L (98-107); Sodium 145 mmol/L (136-145)
[2022-05-28 07:06] LABS: Potassium 3.2 mmoL/L (3.5-5.1)
[2022-05-28 07:07] LABS: Basophils % 0.1 % (0.1-2.0); Eosinophils % 0.1 % (0.1-12.0); Hematocrit 36.3 % (37.0-47.0); Hemoglobin 11.7 g/dL (12.2-16.2); Lymphocytes # 1.4 K/mm3 (0.7-4.5); Lymphocytes % 4.8 % (10-50); Mean Corpuscular HGB Conc 32.3 g/dL (31.8-35.4); Mean Corpuscular Hemoglobin 28.8 pg (27.0-31.2); Mean Corpuscular Volume 89.2 fl (81-99); Mean Platelet Volume 11.7 fl (7.4-10.4); Monocytes # 0.8 K/mm3 (0.1-1.0); Monocytes % 2.5 % (1.7-9.3); Neutrophils # 27.4 K/mm3 (1.8-7.8); Neutrophils % 92.4 % (37.0-80.0); Platelet Count 191 K/mm3 (142-424); Red Blood Count 4.08 M/mm3 (4.20-5.40); Red Cell Distribution Width 14.7 % (11.5-17.5); White Blood Count 29.6 K/mm3 (4.8-10.8)
[2022-05-28 07:08] LABS: Blood Urea Nitrogen 35 mg/dl (7-17); Creatinine Clearance Estimated 45 mL/min (50-200); Estimated Glomerular Filt Rate 50 ml/min (>60); GFR (African American) 60 ML/MIN (>60); MANUAL DIFFERENTIAL MANUAL DIFFERENTIAL (MANUAL DIFF)
[2022-05-28 07:09] LABS: Anion Gap 14.2 mEq/L (5-15); Calcium 5.6 mg/dl (8.4-10.2); Carbon Dioxide 14 mmol/L (22.0-30.0); Glucose 158 mg/dl (74-100)
[2022-05-28 07:37] LABS: Lymphocytes % 5 % (10-50); Monocytes % 2 % (2-9); Neutrophils % 93 % (42-76); Platelet Estimate Normal; RBC Morphology Normal; Total Cells Counted 100
--- NOTE | 2022-05-28 08:18 | HMH.ACPN ---
Internal Medicine - PN: Subj *Date: 05/28/22 *Time: 08:18 Exam Vital signs and Labs for Last 24 Hours: Temp Pulse Resp BP Pulse Ox 97.9 F 58 L 18 134/77 98 05/28/22 04:00 05/28/22 04:00 05/28/22 04:00 05/28/22 04:00 05/28/22 04:00 Laboratory Results - last 24 hr 05/27/22 07:12: Total Counted 100, Neutrophils % (Manual) 93 H, Lymphocytes % (Manual) 6 L, Monocytes % (Manual) 1 L, Platelet Estimate Normal, RBC Morphology Normal 05/27/22 12:30: Ammonia 18 05/27/22 13:05: Sodium 152 H*, Potassium 3.7, Chloride 124 H, Carbon Dioxide 12 L, Anion Gap 19.7 H, BUN 47 H, Creatinine 1.40 H, Estimated Creat Clear 36, Estimated GFR 38 L, Est GFR ( Amer) 45 L, Glucose 166 H D, Calcium 6.0 L, Troponin I 0.09 H 05/27/22 20:02: Sodium 145, Potassium 3.8, Chloride 119 H, Carbon Dioxide 14 L, Anion Gap 15.8 H, BUN 42 H, Creatinine 1.20 H, Estimated Creat Clear 42, Estimated GFR 45 L, Est GFR ( Amer) 54 L, Glucose 123 H D, Calcium 5.9 L 05/28/22 06:16: WBC 29.6 H*, RBC 4.08 L, Hgb 11.7 L, Hct 36.3 L, MCV 89.2, MCH 28.8, MCHC 32.3, RDW 14.7, Plt Count 191, MPV 11.7 H, Neut % (Auto) 92.4 H, Lymph % (Auto) 4.8 L, [place] % (Auto) 2.5, Eos % (Auto) 0.1, Baso % (Auto) 0.1, Neut # (Auto) 27.4 H, Lymph # (Auto) 1.4, [place] # (Auto) 0.8, Eos # (Auto) 0.0, Baso # (Auto) 0.0, Total Counted 100, Neutrophils % (Manual) 93 H, Lymphocytes % (Manual) 5 L, Monocytes % (Manual) 2, Platelet Estimate Normal, RBC Morphology Normal 05/28/22 06:16: Sodium 145, Potassium 3.2 L, Chloride 120 H, Carbon Dioxide 14 L, Anion Gap 14.2, BUN 35 H, Creatinine 1.10 H, Estimated Creat Clear 45, Estimated GFR 50 L, Est GFR ( Amer) 60, Glucose 158 H D, Calcium 5.6 L I & O for Last 24 hours: Intake & Output 05/25/22 05/26/22 05/27/22 05/28/22 23:59 23:59 23:59 23:59 Intake Total 4562 / 4562 5443 / 5443 2869 / 2869 960 / 960 Output Total 1950 / 1950 3600 / 4200 2000 / 2600 600 / 600 Balance 2612 / 2612 1843 / 1243 869 / 269 360 / 360 Weight 56.971 kg 59.3 kg 58.468 kg 57.606 kg Assessment and Plan (1) Sepsis Status: Acute Qualifiers: Sepsis type: sepsis due to unspecified organism Sepsis acute organ dysfunction status: with acute organ dysfunction Severe sepsis acute organ dysfunction type: acute renal failure Acute renal failure type: unspecified Severe sepsis shock status: without septic shock Qualified Code(s): A41.9 - Sepsis, unspecified organism; R65.20 - Severe sepsis without septic shock; N17.9 - Acute kidney failure, unspecified Category: Medical Code(s): A41.9 - Sepsis, unspecified organism (2) Acute renal failure Status: Acute Qualifiers: Acute renal failure type: unspecified Qualified Code(s): N17.9 - Acute kidney failure, unspecified Category: Medical Code(s): N17.9 - Acute kidney failure, unspecified (3) Dehydration Status: Acute Category: Medical Code(s): E86.0 - Dehydration (4) Urinary tract infection Status: Acute Qualifiers: Urinary tract infection type: site unspecified Hematuria presence: without hematuria Qualified Code(s): N39.0 - Urinary tract infection, site not specified Category: Medical Code(s): N39.0 - Urinary tract infection, site not specified (5) CKD (chronic kidney disease) Status: Chronic Category: Medical Code(s): N18.9 - Chronic kidney disease, unspecified (6) Diarrhea Status: Acute Category: Medical Code(s): R19.7 - Diarrhea, unspecified (7) Gastroenteritis Status: Acute Category: Medical Code(s): K52.9 - Noninfective gastroenteritis and colitis, unspecified (8) Anxiety Status: Chronic Category: Medical Code(s): F41.9 - Anxiety disorder, unspecified (9) Back Pain Status: Chronic Qualifiers: Back pain location: low back pain Chronicity: chronic Back pain laterality: unspecified Sciatica presence: without sciatica Qualified Code(s): M54.50 - Low back pain, unspecified; G89.29 - Other chronic pain Catego
--- NOTE | 2022-05-28 08:37 | HMH.PNCARD ---
Subjective Date: 05/28/22 Time: 08:37 Principal diagnosis: sepsis, dehydration, uti, donnie Interval history: Patient resting, reports feeling better. aaox4 today. denies chest pain or abdominal pain. no signs of volume overload. labs as follows: potassium 3.2, sodium 145. creatinine 1.10. chest xray yesterday shows worsening right lower lung atelectasis or pneumonia. Exam Vital signs and Labs for Last 24 Hours: Temp Pulse Resp BP Pulse Ox 97.9 F 58 L 18 134/77 98 05/28/22 04:00 05/28/22 04:00 05/28/22 04:00 05/28/22 04:00 05/28/22 04:00 Laboratory Results - last 24 hr 05/27/22 12:30: Ammonia 18 05/27/22 13:05: Sodium 152 H*, Potassium 3.7, Chloride 124 H, Carbon Dioxide 12 L, Anion Gap 19.7 H, BUN 47 H, Creatinine 1.40 H, Estimated Creat Clear 36, Estimated GFR 38 L, Est GFR ( Amer) 45 L, Glucose 166 H D, Calcium 6.0 L, Troponin I 0.09 H 05/27/22 20:02: Sodium 145, Potassium 3.8, Chloride 119 H, Carbon Dioxide 14 L, Anion Gap 15.8 H, BUN 42 H, Creatinine 1.20 H, Estimated Creat Clear 42, Estimated GFR 45 L, Est GFR ( Amer) 54 L, Glucose 123 H D, Calcium 5.9 L 05/28/22 06:16: WBC 29.6 H*, RBC 4.08 L, Hgb 11.7 L, Hct 36.3 L, MCV 89.2, MCH 28.8, MCHC 32.3, RDW 14.7, Plt Count 191, MPV 11.7 H, Neut % (Auto) 92.4 H, Lymph % (Auto) 4.8 L, [place] % (Auto) 2.5, Eos % (Auto) 0.1, Baso % (Auto) 0.1, Neut # (Auto) 27.4 H, Lymph # (Auto) 1.4, [place] # (Auto) 0.8, Eos # (Auto) 0.0, Baso # (Auto) 0.0, Total Counted 100, Neutrophils % (Manual) 93 H, Lymphocytes % (Manual) 5 L, Monocytes % (Manual) 2, Platelet Estimate Normal, RBC Morphology Normal 05/28/22 06:16: Sodium 145, Potassium 3.2 L, Chloride 120 H, Carbon Dioxide 14 L, Anion Gap 14.2, BUN 35 H, Creatinine 1.10 H, Estimated Creat Clear 45, Estimated GFR 50 L, Est GFR ( Amer) 60, Glucose 158 H D, Calcium 5.6 L I & O for Last 24 hours: Intake & Output 05/25/22 05/26/22 05/27/22 05/28/22 23:59 23:59 23:59 23:59 Intake Total 4562 / 4562 5443 / 5443 2869 / 2869 960 / 960 Output Total 1950 / 1950 3600 / 4200 2000 / 2600 600 / 600 Balance 2612 / 2612 1843 / 1243 869 / 269 360 / 360 Weight 125 lb 9.6 oz 130 lb 11.746 oz 128 lb 14.4 oz 127 lb - Constitutional no acute distress - *Routine Respiratory Exam Present: rhonchi, wheezes - *Routine Cardiovascular Exam Present: RRR - *Routine Extremities Exam Absent: cyanosis, clubbing, edema Progress Note: A&P (1) Sepsis Status: Acute (2) Acute renal failure Status: Acute (3) Dehydration Status: Acute (4) Urinary tract infection Status: Acute (5) CKD (chronic kidney disease) Status: Chronic (6) Diarrhea Status: Acute (7) Gastroenteritis Status: Acute (8) Anxiety Status: Chronic (9) Back Pain Status: Chronic (10) CAD (coronary artery disease) Status: Chronic (11) HTN (hypertension) Status: Chronic (12) History of CVA (cerebrovascular accident) Status: Chronic (13) DONNIE (acute kidney injury) Status: Acute (14) Dehydration Status: Acute Assessment and Plan for All Diagnoses:: DONNIE -Initially 11, has improved, today 110. sodium 145, potassium 3.2. no signs of volume overload noted. Acute sepsis -Per primary service CAD -[facility] 05/2021- Mild to moderate non flow limiting -Aspirin, Plavix, Statin, BB Chronic systolic heart failure- with recovered EF -Echo 04/09- normal EF. -Has been managed on aldactone, lasix, and entresto -Entresto restarted yesterday, today will restart aldactone 25mg QD. CV stable, will sign off today. recommend restarting aldactone at 25mg QD. Continue to hold lasix for now, restart for symptoms of volume overload. We can see patient outpatient in office in 2 weeks after dc home. Card meds Aspirin 81mg QD Plavix 75mg QD Bisoprolol 5mg QD Aldactone 25mg QD Entresto 24/26mg BID lipitor 40mg QD
--- NOTE | 2022-05-28 09:29 | HMH.ACPN2 ---
Internal Medicine - PN: Subj *Date: 05/28/22 *Time: 19:09 Interval history: 66-year-old female patient sitting up in bed resting quietly, brother at bedside. Patient is alert and oriented x3 this morning, answers all questions appropriately, and denies any concerns/needs at present. Patient does report before admittance was having dysphagia and frequent coughing after meals with occasional choking during meals. Exam Vital signs and Labs for Last 24 Hours: Temp Pulse Resp BP Pulse Ox 97.7 F 47 L 16 130/69 98 05/28/22 08:00 05/28/22 08:00 05/28/22 08:00 05/28/22 08:00 05/28/22 08:00 Laboratory Results - last 24 hr 05/27/22 12:30: Ammonia 18 05/27/22 13:05: Sodium 152 H*, Potassium 3.7, Chloride 124 H, Carbon Dioxide 12 L, Anion Gap 19.7 H, BUN 47 H, Creatinine 1.40 H, Estimated Creat Clear 36, Estimated GFR 38 L, Est GFR ( Amer) 45 L, Glucose 166 H D, Calcium 6.0 L, Troponin I 0.09 H 05/27/22 20:02: Sodium 145, Potassium 3.8, Chloride 119 H, Carbon Dioxide 14 L, Anion Gap 15.8 H, BUN 42 H, Creatinine 1.20 H, Estimated Creat Clear 42, Estimated GFR 45 L, Est GFR ( Amer) 54 L, Glucose 123 H D, Calcium 5.9 L 05/28/22 06:16: WBC 29.6 H*, RBC 4.08 L, Hgb 11.7 L, Hct 36.3 L, MCV 89.2, MCH 28.8, MCHC 32.3, RDW 14.7, Plt Count 191, MPV 11.7 H, Neut % (Auto) 92.4 H, Lymph % (Auto) 4.8 L, [place] % (Auto) 2.5, Eos % (Auto) 0.1, Baso % (Auto) 0.1, Neut # (Auto) 27.4 H, Lymph # (Auto) 1.4, [place] # (Auto) 0.8, Eos # (Auto) 0.0, Baso # (Auto) 0.0, Total Counted 100, Neutrophils % (Manual) 93 H, Lymphocytes % (Manual) 5 L, Monocytes % (Manual) 2, Platelet Estimate Normal, RBC Morphology Normal 05/28/22 06:16: Sodium 145, Potassium 3.2 L, Chloride 120 H, Carbon Dioxide 14 L, Anion Gap 14.2, BUN 35 H, Creatinine 1.10 H, Estimated Creat Clear 45, Estimated GFR 50 L, Est GFR ( Amer) 60, Glucose 158 H D, Calcium 5.6 L I & O for Last 24 hours: Intake & Output 05/25/22 05/26/22 05/27/22 05/28/22 23:59 23:59 23:59 23:59 Intake Total 4562 / 4562 5443 / 5443 2869 / 2869 960 / 960 Output Total 1950 / 1950 3600 / 4200 2000 / 2600 600 / 600 Balance 2612 / 2612 1843 / 1243 869 / 269 360 / 360 Weight 125 lb 9.6 oz 130 lb 11.746 oz 128 lb 14.4 oz 127 lb - Constitutional no acute distress, chronically ill appearing - *Routine HEENT Exam Head: Present: normocephalic Eye: Present: EOMI ENT: Present: mucous membranes moist - *Routine Neck Exam Present: trachea midline. Absent: tracheal deviation - *Routine Respiratory Exam Present: decreased breath sounds. Absent: accessory muscle use - *Routine Cardiovascular Exam Present: RRR - *Routine Abdominal Exam Present: soft, normoactive bowel sounds. Absent: tenderness, distended - *Routine Extremities Exam Present: full ROM, pulses intact. Absent: cyanosis, clubbing, edema - *Routine Skin Exam Present: intact, dry. Absent: cyanosis, erythema - *Routine Neurological Exam Present: alert, oriented X3. Absent: altered mental status - Routine Psychiatric Exam Present: normal affect, normal thought process. Absent: tactile hallucinations Assessment and Plan (1) Sepsis Status: Acute Qualifiers: Sepsis type: sepsis due to unspecified organism Sepsis acute organ dysfunction status: with acute organ dysfunction Severe sepsis acute organ dysfunction type: acute renal failure Acute renal failure type: unspecified Severe sepsis shock status: without septic shock Qualified Code(s): A41.9 - Sepsis, unspecified organism; R65.20 - Severe sepsis without septic shock; N17.9 - Acute kidney failure, unspecified Category: Medical Code(s): A41.9 - Sepsis, unspecified organism (2) Acute renal failure Status: Acute Qualifiers: Acute renal failure type: unspecified Qualified Code(s): N17.9 - Acute kidney failure, unspecified Category: Medical Code(s): N17.9 - Acute kidney failure, unspecified (3) Dehydration Status: Acute Category: Medi
--- NOTE | 2022-05-28 12:28 | HMH.SLDYSPHA ---
Speech & Language Evaluation Speech/Language Dysphagia Evaluation Start: 05/28/22 12:19 Freq: ONCE Status: Active Protocol: Document 05/28/22 12:19 ERIK (Rec: 05/28/22 12:27 [email or web address] [id number]) Dysphagia Assess/Goals/Plan Assessment Date of Evaluation: 05/28/22 Evaluation Type Initial Certification Assessment/Problems Clinical bedside swallow evaluation per MD order. Does Patient Qualify for Service No Qualify/Failure Comment Further evaluation needs to be conducted to consider eligibility for services 2' to limited trials. Recommendations PHYSICIAN CERTIFICATION: The specified therapy services are required, authorized, and reviewed every 30 days. Comment Further evaluation needed 2' noncompliance and limited trials. Pt stated that she was nausous and refused to partake in trials outside of 2 sips of thin water via spoon and open cup. Plan Pt/Guardian verbally ack understanding Yes: following repetition of of dx/prognosis/goals need for further evaluation acknowledged understand G -code Required No Education Instructions provided Provided pt with education that further evaluation is needed and ST will revisit at a later date. Pt/Caregiver able to recall information Unable to ind. understand, Reinforcement needed Reinforcement needed Yes: repetitions Speech & Language HPI History Present Illness Description of Patient Problem Pt admit for UTI, sepsis, bloon in stool, PNA, and renal failure following ambulance to ED. Hx of CVA, CHF, COPD ( previous smoker 1 pack/day), HTN, and anxiety/depression. Language Primary Language Khmer General Information General Current Food Consistancy Regular,Thin Liquids Dentition Poor Dentition Oxygen Status Nasal Cannula Dysphagia:Food Presentation Evaluation Food Type Liquid Dysphagia Evaluation Summary Pt was only able to tolerate 2 thin liquid h2o trials (1 via spoon, 1 via open cup) 2' nausea. Further evaluation will be completed at a later date. Stroke Dysphagia Assessment
--- NOTE | 2022-05-28 13:33 | PC.NURSE ---
RESP CARE NOTE: Pt nauseated and vommiting. Nebulizer treatment held at this time per her request.
--- NOTE | 2022-05-28 13:46 | DIET.NUTRFU ---
Spoke to patient before lunch to review meal choices, her meal intake yesterday was poor refusing meals d/t nausea and vomiting. She continues to have nausea today and reports she does not feel like eating anything. Tried a chocolate ensure with her around breakfast and she disliked. Her family ordered a strawberry milkshake prior to lunch and she really did not like that either. Her son says she likes turkey sandwich and chicken noodle soup- that is what was ordered for lunch. Family was going to stay and encourage some po intake. She is receiving ABT tx and pain tx which may cause GI distress, phenegan IV is in place to help. She also continues on dextrose bolus to help with hydration. Dgt will help with menu preferences later today for tomorrow. Will continue to work with family and patient to provide foods she prefers to meet nutritional needs.
--- NOTE | 2022-05-28 14:23 | PC.NURSE ---
rounded on patient. patient is sitting up in bed visiting with family. family did voice concerns about parkinsons which was mentioned to md this morning. md had stated this would be something they could follow up on, on an outpatient basis. there is no definitive testing for parkinsons, and once patient was better from this acute illness they could look further into this as the family wishes. this was relayed to the family, with no concerns or further questions from them. patient did state she would be interested in a bath, but when this was relayed to tech in front of her patient quickly stated i do not want a bath. , encouraged patient that washing up may be beneficial to care, and could help prevent any further infections, and she agreed to possibly wiping down some . educated applications instructor light. bed alarm in place.
--- NOTE | 2022-05-28 18:01 | PC.NURSE ---
Pt has been very nauseated this shift and dry heaving, with little emesis, which has been clear. PRN phenegran recently given and now pt is resting at this time. Pt has refused to eat all shift and been offered multiple things to eat/drink.Pt has only took small sips of water. Pt has continues to have loose stools. Buttocks is excoriated from fecal matter(loose stools). Have cleansed pt, patted dry and applied powder. Linen change also done. Cool wash cloth applied to head. Made cardiology aware of bradycardia this am and changes made to decrease bisoprolol per dec. CB in reach. Family has been here to visit this shift. VSS.
[2022-05-29] VITALS (17 sets, daily range): BP systolic 82–151; BP diastolic 48–78; PULSE 66–164; RESP 20–22; TEMP 35.9–36.6; O2SAT 94–100; BMI 31.6
--- NOTE | 2022-05-29 00:40 | ECG_ITS ---
APPROVED REPORT Exam: Resting ECG HR:196 bpm ECG Measurements Heart Rate 196 AXES QRSd 98 QRS 49 QT 247 T -60 QTc 346 Conclusion ATRIAL FIBRILLATION WITH RAPID VENTRICULAR RESPONSE WITH ABERRANT CONDUCTION OR VENTRICULAR PREMATURE COMPLEXES ST DEVIATION AND MODERATE T-WAVE ABNORMALITY, CONSIDER ANTEROLATERAL ISCHEMIA [-0.1+ mV T-WAVE IN V3-V6] ST DEVIATION AND MODERATE T-WAVE ABNORMALITY, CONSIDER INFERIOR ISCHEMIA [-0.1+ mV T-WAVE IN II/aVF] CRITICAL TEST RESULT INTERPRETATION BASED ON A DEFAULT AGE OF 40 YEARS UNCONFIRMED REPORT Electronically signed by : Rafy Weston MD 05/30/2022 21:44:03
--- NOTE | 2022-05-29 01:11 | XR_ITS ---
PROCEDURE INFORMATION: Exam: XR Chest Exam date and time: 05/29/2022 1:04 AM Age: 66 years old Clinical indication: Dyspnea and other: Tachycardia; Additional info: Rapid red TECHNIQUE: Imaging protocol: Radiologic exam of the chest. Views: 1 view. COMPARISON: CR XR CHEST PORTABLE 05/27/2022 9:05 AM FINDINGS: Lungs: Bibasilar opacities. Pleural spaces: Unremarkable. No pleural effusion. No pneumothorax. Heart/Mediastinum: Unremarkable. No cardiomegaly. Vasculature: Vascular calcifications. Bones/joints: Unremarkable. IMPRESSION: Bibasilar opacities. This could be atelectasis. Superimposed aspiration or infection is possible in the appropriate clinical setting
--- NOTE | 2022-05-29 01:25 | PC.NURSE ---
During duration of care patient noted to be very nauseous vomiting bile like emesis. Patient on 2l nc however turned up to 3l r/t trouble breathing while dry heaving. Patient alert to self at start of shift. Placed patient on tele hr 60s-70's. Heart rate would elevate to 130's during vomiting episodes however would quickly recover once vomiting episodes stopped. Medicated per dec for nausea with short periods of relief. 0028 Called by front end java developer informed HR 170's and rhythm changed to a flutter. Went in room patient non responsive to verbal nor painful stimuli. Emesis noted around mouth. Patient labored breathing. 0030 Rapid Red called- non rebreather placed 15L [id number] Maile at bedside orders Cardizem bolus and drip, along with Blood gas, and chest xray. Patient transferred to step down. Report Given to Loren Mary
[2022-05-29 01:27] LABS: ABG Base Excess -19.5 mmol/L (-2.4-2.3); ABG HCO3 7.9 mmhg (22.0-26.0); ABG Oxygen Saturation 99 % (90-100); ABG PH 7.24 mmol/L (7.35-7.45); ABG PO2 142.8 mmhg (80-100); ABG TCO2 8.5 mmhg (23-27); Allen's Test Non Applicable; Oxygen 100 %; Source Left Brachial
[2022-05-29 01:28] LABS: ABG PCO2 18.8 mmhg (35.0-45.0)
--- NOTE | 2022-05-29 01:42 | PC.NURSE ---
Updated Patient Brother Kandi on condition change. Kandi states he will be here in the morning. All questions answered.
[2022-05-29 01:49] LABS: Basophils # 0.2 K/mm3 (0-0.2); Basophils % 0.5 % (0.1-2.0); Eosinophils % 0.1 % (0.1-12.0); Lymphocytes # 1.3 K/mm3 (0.7-4.5); Lymphocytes % 3.7 % (10-50); Mean Corpuscular Hemoglobin 28.9 pg (27.0-31.2); Monocytes # 0.9 K/mm3 (0.1-1.0); Monocytes % 2.6 % (1.7-9.3); Neutrophils # 33.2 K/mm3 (1.8-7.8); Neutrophils % 93.1 % (37.0-80.0); Platelet Count 310 K/mm3 (142-424); Red Blood Count 4.52 M/mm3 (4.20-5.40); Red Cell Distribution Width 14.7 % (11.5-17.5); White Blood Count 35.7 K/mm3 (4.8-10.8)
--- NOTE | 2022-05-29 02:10 | ECG_ITS ---
APPROVED REPORT Exam: Resting ECG HR:76 bpm ECG Measurements Heart Rate 76 AXES MI 139 P 53 QRSd 101 QRS -4 QT 398 T 38 QTc 429 Conclusion SINUS RHYTHM WITH MARKED SINUS ARRHYTHMIA INFERIOR MYOCARDIAL INFARCTION , POSSIBLY ACUTE [40+ ms Q WAVE AND/OR ST/T ABNORMALITY IN II/aVF] ACUTE NM UNCONFIRMED REPORT Electronically signed by : Rafy Weston MD 05/30/2022 21:43:57
[2022-05-29 02:19] LABS: Anion Gap 22.7 mEq/L (5-15); Blood Urea Nitrogen 24 mg/dl (7-17); Calcium 5.7 mg/dl (8.4-10.2); Chloride 116 mmol/L (98-107); Creatinine Clearance Estimated 38 mL/min (50-200); Estimated Glomerular Filt Rate 41 ml/min (>60); GFR (African American) 49 ML/MIN (>60); Glucose 313 mg/dl (74-100); Sodium 144 mmol/L (136-145)
[2022-05-29 02:22] LABS: Hemoglobin 13.1 g/dL (12.2-16.2); MANUAL DIFFERENTIAL MANUAL DIFFERENTIAL (MANUAL DIFF)
[2022-05-29 02:24] LABS: Carbon Dioxide 8 mmol/L (22.0-30.0); Potassium 2.7 mmoL/L (3.5-5.1)
[2022-05-29 02:30] LABS: NT Pro Brain Natriuretic Pep. 20900 pg/mL (0-125)
[2022-05-29 02:33] LABS: Troponin I 2.78 ng/ml (0.00-0.034)
--- NOTE | 2022-05-29 02:46 | PC.NURSE ---
Pt HR remained in upper 160s-170s. MD Osuna called at 0130. New orders received to DC Diltiazem and place pt on Amiodarone gtt with Amiodarone bolus first. Orders carried out. Repeat EKG obtained and read by MD Gr. No new orders. Critical lab values K= 2.7, Co2 8, Troponin 2.78. BNP 20,900 and WBC 35. New orders received to give potassium IV run of 20 meq. Change fluids to NS@ 50 ml.
[2022-05-29 03:44] LABS: Eosinophils % 1 % (0-3); Lymphocytes % 6 % (10-50); Neutrophils % 93 % (42-76); Total Cells Counted 100
[2022-05-29 03:45] LABS: Platelet Estimate Normal; RBC Morphology Normal
--- NOTE | 2022-05-29 04:23 | PC.NURSE ---
0300 BP noted to be hypotensive. Spoke with MD Gr. New orders received to start pt on Levophed gtt if pt unable to maintain pressure.
[2022-05-29 05:12] LABS: POC Glucose,Bedside 296 (70-110)
--- NOTE | 2022-05-29 05:49 | PC.NURSE ---
Pt c/o nausea. Cold wash cloth applied to head. New IV placed in (R) hand #20. Phenergan infusion started.
--- NOTE | 2022-05-29 07:12 | CA_ITS ---
APPROVED REPORT EXAM: Comprehensive 2D, Doppler, and color-flow Echocardiogram Cryptographic Machine Operator: RAFAEL Jean, RVS Ht: 5 ft 1 in Wt: 172lbs BSA: 1.77 BP: 108/67 mmHg Indications: Cp,Diaphoretic, SOA, hx-CAD, Afib, CHF, COPD Echo Enhancing Agent Comments: Technically limited windows due to external defibrillator pad placement, Patient supine. 2D Dimensions IVSd 1.01 cm LVEF (Visual) 23.80 % PWd 0.73 cm LVDd 5.58 cm LVDs 5.26 cm M-Mode Dimensions RVDd 1.11 cm (0.9-2.6) LVDd 5.84 cm (3.5-5.7) LVDs 5.07 cm (3.5-5.7) IVSd 1.05 cm (0.6-1.1) PWd 0.74 cm (0.6-1.1) EF (Teich) 27.80% FS 13.20% EDV (Teich) 169.20 mL ESV (Teich) 122.10 mL Conclusion 1. Limited echocardiogram was performed to evaluate left ventricular systolic function. 2. Left atrium is mildly enlarged, left ventricle is mildly dilated, reduced left ventricular systolic function, estimated ejection fraction 30%, there is marked hypokinesis involving the inferolateral lateral and posterolateral wall. 3. No significant pericardial effusion noted. Electronically signed by : Angel Franks MD 05/30/2022 15:56:44
[2022-05-29 07:14] LABS: Chloride 117 mmol/L (98-107); Sodium 144 mmol/L (136-145)
[2022-05-29 07:17] LABS: Blood Urea Nitrogen 25 mg/dl (7-17); Creatinine Clearance Estimated 56 mL/min (50-200); Estimated Glomerular Filt Rate 45 ml/min (>60); GFR (African American) 54 ML/MIN (>60)
[2022-05-29 07:18] LABS: Calcium 5.6 mg/dl (8.4-10.2); Carbon Dioxide 13 mmol/L (22.0-30.0); Glucose 190 mg/dl (74-100)
--- NOTE | 2022-05-29 07:24 | HMH.RR ---
Acute Rapid Response Note - Subjective Date Responded: 05/29/22 Time Responded: 02:00 Provider Note: called as pt with acute a fib and sob - Objective Findings: Vital Signs - Last 4 Hours Temperature 96.7 F L 05/29/22 04:00 Temperature Source Axillary 05/29/22 04:00 Pulse Rate 70 05/29/22 07:11 Respiratory Rate 22 05/29/22 06:00 Blood Pressure 100/57 L 05/29/22 06:00 Blood Pressure Mean 71 05/29/22 06:00 Blood Pressure Source Automatic Cuff 05/29/22 06:00 Blood Pressure Position Supine 05/28/22 16:00 02 Sat by Pulse Oximetry 98 05/29/22 06:30 Oxygen Delivery Method 05/29/22 06:48 Oxygen Flow Rate (LPM) 2 05/29/22 06:48 Lab Results for Past 12 Hours 05/29/22 01:30: NT-Pro-B Natriuret Pep 60230 H 05/29/22 01:30: Sodium 144, Potassium 2.7 L*, Chloride 116 H, Carbon Dioxide 8 L* D, Anion Gap 22.7 H, BUN 24 H D, Creatinine 1.30 H, Estimated Creat Clear 38, Estimated GFR 41 L, Est GFR ( Amer) 49 L, Glucose 313 H D, Calcium 5.7 L, Troponin I 2.78 H 05/29/22 01:30: WBC 35.7 H*, RBC 4.52, Hgb 13.1 D, Hct 42.0, MCV 93.0, MCH 28.9, MCHC 31.0 L, RDW 14.7, Plt Count 310 D, MPV 12.0 H, Neut % (Auto) 93.1 H, Lymph % (Auto) 3.7 L, [place] % (Auto) 2.6, Eos % (Auto) 0.1, Baso % (Auto) 0.5, Neut # (Auto) 33.2 H, Lymph # (Auto) 1.3, [place] # (Auto) 0.9, Eos # (Auto) 0.0, Baso # (Auto) 0.2, Total Counted 100, Neutrophils % (Manual) 93 H, Lymphocytes % (Manual) 6 L, Eosinophils % (Manual) 1, Platelet Estimate Normal, RBC Morphology Normal 05/29/22 01:26: Specimen Source Left brachial, O2 % 100, ABG pH 7.24 L*, ABG pCO2 18.8 L, ABG pO2 142.8 H, ABG HCO3 7.9 L, ABG Total CO2 8.5 L, ABG O2 Saturation 99, ABG Base Excess -19.5 L, Aubrey Test Non applicable 05/29/22 00:57: POC Glucose 296 H My Orders Category Date Time Status Brush, Insert [Urinary Catheter, Insert] ONCE Care 05/29/22 00:40 Completed CA echo limited Routine Exams 05/29/22 07:12 Completed CXR --portable [XR chest portable] Stat Exams 05/29/22 01:11 Completed BNP [Brain Natriuretic Peptide] Stat Lab 05/29/22 01:30 Completed Basic Metabolic Panel Stat Lab 05/29/22 01:30 Completed Complete Blood Count Auto Diff Stat Lab 05/29/22 01:30 Completed Troponin I Stat Lab 05/29/22 01:30 Completed 0.9 % Sodium Chloride [Sod Chlor 0.9% 1000mL Bag] 1,000 Med 05/29/22 03:15 Active ml IV 50 mls/hr 0.9 % Sodium Chloride [Sod Chloride 0.9% 100mL Adv.] Med 05/29/22 00:50 Discontinued 100 ml dilTIAZem HCL [Cardizem 100mg ADV] 100 mg IV 5 mls/hr Dextrose 5 % in Water [D5W 250mL IV] 250 ml Med 05/29/22 04:00 Active Norepinephrine Bitartrate [Levophed 4mg/4mL vial] 8 mg IV 8 mcg/min KCl 10mEq/100ml [Potassium Chloride 10mEq/100mL IVPB] Med 05/29/22 03:15 Discontinued 100 ml IV Q1H dilTIAZem HCL [Cardizem 25mg/5mL vial] Med 05/29/22 00:40 Discontinued 14 mg IV ONCE ONE ECG initial [place]on Stat Y 05/29/22 00:40 Completed - Radiology Findings #1 Xray Reviewed: Chest Image Reviewed: Yes I have reviewed radiologist's interpretation ED XR Results: Abnormal (no def acute changes ) - ECG Data Tracing #1 Arrhythmias present: afib Ischemic changes: non-specific ST-T wave changes EKG compared to prior tracings: this ECG reveals significant changes Tracing #2 Arrhythmias present: sinus tach Ischemic changes: non-specific ST-T wave changes Rapid Response Exam - General General appearance: other (altered mental status ) - Head Head exam: normocephalic - Eye Eye exam: Present: PERRL, EOMI - ENT ENT exam: Present: mucous membranes dry - Neck Neck exam: Present: trachea midline - Respiratory Respiratory exam: Present: other (dec bs bilat ). Absent: respiratory distress - Cardiovascular Cardiovascular exam: Present: tachycardia, irregular rhythm, systolic murmur, +S4 - Abdominal Exam Abdominal exam: Present: soft - Extremities Exam Extremities exam: Present: pedal edema. A
[2022-05-29 07:30] LABS: Red Blood Count 4.25 M/mm3 (4.20-5.40)
[2022-05-29 07:31] LABS: Basophils % 0.4 % (0.1-2.0); Eosinophils % 0.4 % (0.1-12.0); Hematocrit 37.7 % (37.0-47.0); Hemoglobin 12.7 g/dL (12.2-16.2); Lymphocytes # 1.6 K/mm3 (0.7-4.5); Lymphocytes % 3.6 % (10-50); Mean Corpuscular HGB Conc 33.8 g/dL (31.8-35.4); Mean Corpuscular Volume 88.7 fl (81-99); Mean Platelet Volume 12.8 fl (7.4-10.4); Monocytes % 4.6 % (1.7-9.3); Neutrophils % 90.5 % (37.0-80.0); Platelet Count 272 K/mm3 (142-424); Red Cell Distribution Width 14.6 % (11.5-17.5)
[2022-05-29 07:32] LABS: Basophils # 0.2 K/mm3 (0-0.2); Eosinophils # 0.2 K/mm3 (0.0-0.4)
[2022-05-29 07:33] LABS: White Blood Count 43.1 K/mm3 (4.8-10.8)
--- NOTE | 2022-05-29 08:12 | CT_ITS ---
FINAL REPORT TECHNIQUE: After the administration of oral and intravenous contrast, axial images were obtained through the abdomen and pelvis by computed tomography. The study was performed with techniques to keep radiation dose as low as reasonably achievable, (ALARA). Individual dose reduction techniques using automated exposure control or adjustment of mA and/or kV according to the patient's size were employed. CLINICAL HISTORY: Abd pain, vomiting, sepsis FINDINGS: Abdomen: Motion artifact is identified on many of the images. There is bilateral lower lobe atelectasis/scar. The liver is normal in size and attenuation. There are multiple gallstones with gallbladder wall thickening, cholecystitis is not excluded. The spleen is unremarkable. The adrenals are normal. The pancreas is unremarkable. There is a cyst in the posterior right kidney measuring 16 mm. There is moderate vascular calcification with moderate plaque of the abdominal aorta. There is moderate narrowing of the infrarenal abdominal aorta. There is no free fluid or adenopathy. Pelvis: The appendix is unremarkable. A Brush catheter is present. There is scattered diverticula. There is a small amount of free fluid, likely reactive. There is colon wall thickening, greatest involving the rectosigmoid colon with adjacent inflammatory fat stranding consistent with colitis. There is no free fluid. IMPRESSION: Gallstones with gallbladder wall thickening, cholecystitis is not excluded. If indicated, nuclear medicine hepatobiliary scan may be helpful. Moderate plaque of the abdominal aorta with moderate narrowing of the infrarenal abdominal aorta. Findings consistent with colitis. Reviewed, Interpreted and Dictated by Damian Valles III, MD Transcribed by Trina Del Valle Authenticated and [facility]
--- NOTE | 2022-05-29 09:03 | HMH.PNCARD ---
Subjective Date: 05/29/22 Time: 09:03 Principal diagnosis: sepsis, dehydration, uti, donnie Interval history: Cardiology signed off on patient yesterday. Rapid response called for afib rvr with rate in the 160s and hypotension overnight. patient was started on dilt drip with no response other than becoming hypotensive. patient then was started on amio and levo. currently nsr rate in the 70s. Of note, nurse reported yesterday heart rate in the 40s so bisprolol decreased to 2.5. This morning, wbc has increased to 43.1, potassium was 2.7, creatinine 1.2, trop 2.78, bnp 20,900. Chest xray shows bibasilar infiltrates. patient complaining of abdominal pain. abd is slightly distended and tender to palpation, hypoactive bs noted. CT abd pelvis pending. Dr. Carter was contacted regarding afib rvr and elevated trop over night and orders given. patient appears to be septic at this time from abdominal etiology or bibasilar infiltrates. not nstemi. Exam Vital signs and Labs for Last 24 Hours: Temp Pulse Resp BP Pulse Ox 96.7 F L 80 22 113/63 99 05/29/22 04:00 05/29/22 07:50 05/29/22 07:50 05/29/22 07:50 05/29/22 08:00 Laboratory Results - last 24 hr 05/29/22 00:57: POC Glucose 296 H 05/29/22 01:26: Specimen Source Left brachial, O2 % 100, ABG pH 7.24 L*, ABG pCO2 18.8 L, ABG pO2 142.8 H, ABG HCO3 7.9 L, ABG Total CO2 8.5 L, ABG O2 Saturation 99, ABG Base Excess -19.5 L, Aubrey Test Non applicable 05/29/22 01:30: WBC 35.7 H*, RBC 4.52, Hgb 13.1 D, Hct 42.0, MCV 93.0, MCH 28.9, MCHC 31.0 L, RDW 14.7, Plt Count 310 D, MPV 12.0 H, Neut % (Auto) 93.1 H, Lymph % (Auto) 3.7 L, [place] % (Auto) 2.6, Eos % (Auto) 0.1, Baso % (Auto) 0.5, Neut # (Auto) 33.2 H, Lymph # (Auto) 1.3, [place] # (Auto) 0.9, Eos # (Auto) 0.0, Baso # (Auto) 0.2, Total Counted 100, Neutrophils % (Manual) 93 H, Lymphocytes % (Manual) 6 L, Eosinophils % (Manual) 1, Platelet Estimate Normal, RBC Morphology Normal 05/29/22 01:30: Sodium 144, Potassium 2.7 L*, Chloride 116 H, Carbon Dioxide 8 L* D, Anion Gap 22.7 H, BUN 24 H D, Creatinine 1.30 H, Estimated Creat Clear 38, Estimated GFR 41 L, Est GFR ( Amer) 49 L, Glucose 313 H D, Calcium 5.7 L, Troponin I 2.78 H 05/29/22 01:30: NT-Pro-B Natriuret Pep 62269 H 05/29/22 05:50: WBC 43.1 H*, RBC 4.25, Hgb 12.7, Hct 37.7, MCV 88.7, MCH 30.0, MCHC 33.8, RDW 14.6, Plt Count 272, MPV 12.8 H, Neut % (Auto) 90.5 H, Lymph % (Auto) 3.6 L, [place] % (Auto) 4.6, Eos % (Auto) 0.4, Baso % (Auto) 0.4, Neut # (Auto) 39.0 H, Lymph # (Auto) 1.6, [place] # (Auto) 2.0 H, Eos # (Auto) 0.2, Baso # (Auto) 0.2 05/29/22 05:50: Sodium 144, Potassium 3.0 L, Chloride 117 H, Carbon Dioxide 13 L, Anion Gap 17.0 H, BUN 25 H, Creatinine 1.20 H, Estimated Creat Clear 56, Estimated GFR 45 L, Est GFR ( Amer) 54 L, Glucose 190 H D, Calcium 5.6 L I & O for Last 24 hours: Intake & Output 05/26/22 05/27/22 05/28/22 05/29/22 23:59 23:59 23:59 23:59 Intake Total 5443 / 5443 2869 / 2869 1563 / 1563 300 / 300 Output Total 3600 / 4200 2000 / 2600 1600 / 1600 200 / 200 Balance 1843 / 1243 869 / 269 -37 / -37 100 / 100 Weight 130 lb 11.746 oz 128 lb 14.4 oz 127 lb 172 lb 2.014 oz - Constitutional no acute distress - *Routine Respiratory Exam Present: rhonchi, wheezes - *Routine Abdominal Exam Present: tenderness, distended, other Comments: hypoactive bs Progress Note: A&P (1) Sepsis Status: Acute (2) Acute renal failure Status: Acute (3) Dehydration Status: Acute (4) Urinary tract infection Status: Acute (5) CKD (chronic kidney disease) Status: Chronic (6) Diarrhea Status: Acute (7) Gastroenteritis Status: Acute (8) Anxiety Status: Chronic (9) Back Pain Status: Chronic (10) CAD (coronary artery disease) Status: Chronic (11) HTN (hypertension) Status: Chronic (12) History of CVA (cerebrovascular accident) Status: Chronic (13) DONNIE (acute kidney injury) Status: Acute (14) Dehydration
--- NOTE | 2022-05-29 09:54 | DIET.NUTRFU ---
Continues to have nausea with vomiting over night and this AM. CT scan of abdomen ordered. Cardio is also following for possible cath when feeling better. Breakfast tray was held this morning and she only consumed a couple bites yesterday. Tired both ensure and homemade shake and both were barely drank. Nausea effecting her meal intake. Dextrose in place for hydration, continues on ABT tx and phenegan/zofran. Will continue to follow overall condition.
--- NOTE | 2022-05-29 10:16 | HMH.ACPN2 ---
Internal Medicine - PN: Subj *Date: 05/29/22 *Time: 10:42 Interval history: 66-year-old female patient resting in bed she does report some abdominal tenderness as well as nausea and vomiting. A rapid response was called for heart rate in the 160s, dill drip was ordered with no response was then started on amiodarone. She then developed hypotension, Levophed was started and blood pressure has remained greater than 100 systolic. Cardiology was consulted, with a possible cardiac catheterization today Exam Vital signs and Labs for Last 24 Hours: Temp Pulse Resp BP Pulse Ox 96.7 F L 80 22 113/63 99 05/29/22 04:00 05/29/22 07:50 05/29/22 07:50 05/29/22 07:50 05/29/22 08:00 Laboratory Results - last 24 hr 05/29/22 00:57: POC Glucose 296 H 05/29/22 01:26: Specimen Source Left brachial, O2 % 100, ABG pH 7.24 L*, ABG pCO2 18.8 L, ABG pO2 142.8 H, ABG HCO3 7.9 L, ABG Total CO2 8.5 L, ABG O2 Saturation 99, ABG Base Excess -19.5 L, Aubrey Test Non applicable 05/29/22 01:30: WBC 35.7 H*, RBC 4.52, Hgb 13.1 D, Hct 42.0, MCV 93.0, MCH 28.9, MCHC 31.0 L, RDW 14.7, Plt Count 310 D, MPV 12.0 H, Neut % (Auto) 93.1 H, Lymph % (Auto) 3.7 L, [place] % (Auto) 2.6, Eos % (Auto) 0.1, Baso % (Auto) 0.5, Neut # (Auto) 33.2 H, Lymph # (Auto) 1.3, [place] # (Auto) 0.9, Eos # (Auto) 0.0, Baso # (Auto) 0.2, Total Counted 100, Neutrophils % (Manual) 93 H, Lymphocytes % (Manual) 6 L, Eosinophils % (Manual) 1, Platelet Estimate Normal, RBC Morphology Normal 05/29/22 01:30: Sodium 144, Potassium 2.7 L*, Chloride 116 H, Carbon Dioxide 8 L* D, Anion Gap 22.7 H, BUN 24 H D, Creatinine 1.30 H, Estimated Creat Clear 38, Estimated GFR 41 L, Est GFR ( Amer) 49 L, Glucose 313 H D, Calcium 5.7 L, Troponin I 2.78 H 05/29/22 01:30: NT-Pro-B Natriuret Pep 21487 H 05/29/22 05:50: WBC 43.1 H*, RBC 4.25, Hgb 12.7, Hct 37.7, MCV 88.7, MCH 30.0, MCHC 33.8, RDW 14.6, Plt Count 272, MPV 12.8 H, Neut % (Auto) 90.5 H, Lymph % (Auto) 3.6 L, [place] % (Auto) 4.6, Eos % (Auto) 0.4, Baso % (Auto) 0.4, Neut # (Auto) 39.0 H, Lymph # (Auto) 1.6, [place] # (Auto) 2.0 H, Eos # (Auto) 0.2, Baso # (Auto) 0.2 05/29/22 05:50: Sodium 144, Potassium 3.0 L, Chloride 117 H, Carbon Dioxide 13 L, Anion Gap 17.0 H, BUN 25 H, Creatinine 1.20 H, Estimated Creat Clear 56, Estimated GFR 45 L, Est GFR ( Amer) 54 L, Glucose 190 H D, Calcium 5.6 L I & O for Last 24 hours: Intake & Output 05/26/22 05/27/22 05/28/22 05/29/22 23:59 23:59 23:59 23:59 Intake Total 5443 / 5443 2869 / 2869 1563 / 1563 300 / 300 Output Total 3600 / 4200 2000 / 2600 1600 / 1600 200 / 200 Balance 1843 / 1243 869 / 269 -37 / -37 100 / 100 Weight 130 lb 11.746 oz 128 lb 14.4 oz 127 lb 172 lb 2.014 oz - Constitutional no acute distress, chronically ill appearing - *Routine HEENT Exam Head: Present: normocephalic Eye: Present: EOMI ENT: Present: mucous membranes moist - *Routine Neck Exam Present: trachea midline. Absent: tracheal deviation - *Routine Respiratory Exam Present: rhonchi, wheezes. Absent: accessory muscle use - *Routine Cardiovascular Exam Present: RRR - *Routine Abdominal Exam Present: soft, tenderness, distended - *Routine Extremities Exam Present: full ROM, pulses intact. Absent: cyanosis, clubbing - *Routine Skin Exam Present: intact, dry. Absent: cyanosis, erythema - *Routine Neurological Exam Present: alert, oriented X3 - Routine Psychiatric Exam Present: normal affect Assessment and Plan (1) Sepsis Status: Acute Qualifiers: Sepsis type: sepsis due to unspecified organism Sepsis acute organ dysfunction status: with acute organ dysfunction Severe sepsis acute organ dysfunction type: acute renal failure Acute renal failure type: unspecified Severe sepsis shock status: without septic shock Qualified Code(s): A41.9 - Sepsis, unspecified organism; R65.20 - Severe sepsis without septic shock; N17.9 - Acute kidney failure, unspecified Category: Medical Code(s
--- NOTE | 2022-05-29 10:24 | PC.NURSE ---
Patients sheets were wet from sweat so Riana and I changed them. Patient was comfortable when we left. Aliza Garza SRNA
--- NOTE | 2022-05-29 11:18 | PC.NURSE ---
courtesy tech round: Patient had a full bed change assist x2 . Patient was comfortable and no other requests were voiced.
--- NOTE | 2022-05-29 11:46 | CA_ITS ---
FINAL REPORT TECHNIQUE: Grayscale, color Doppler and duplex Doppler ultrasound of the kidneys, aorta and renal arteries was performed. Multiple velocities were measured. CLINICAL HISTORY: narrowing of infrarenal abdominal aorta SEEN ON CT SCAN,SEPTIC,HYPOTENSION VERY LIMITED STUDY PT IS NAUSEATED AND DRY HEAVING,TURNED TO RIGHT SIDE WILL NOT CHANGE POSITION,BEST EXAM POSSIBLE FINDINGS: Aorta velocity: 92 cm/sec Right kidney: 10.25 cm. No evidence of hydronephrosis or mass. Right intrarenal RI: 0.79 Right RAR (Renal artery-Aortic Ratio): 1.88 Left Kidney: 10.5 cm. No evidence of hydronephrosis or mass. Left intrarenal RI: 0.62 Left RAR (Renal Artery-Aortic Ratio): 1.28 IMPRESSION: No evidence of significant renal artery stenosis. CT angiogram or postcontrast MR angiogram would be more sensitive for evaluation of possible renal artery stenosis. Reviewed, Interpreted and Dictated by Damian Valles III, MD Transcribed by Erna Fatima Authenticated and [facility]
--- NOTE | 2022-05-29 12:00 | HMH.GSCON ---
*Admission Date: 05/24/22 *Reason for consult:: Abnormal CT scan *History of present illness: Patient is a 66-year-old female with history of congestive heart failure severe left ventricular dysfunction, cardiomyopathy, COPD, coronary artery disease with previous stenting, prior stroke, prior myocardial infarction, valvular heart disease, liver disease. She was admitted to the hospital 5 days ago after she presented to the emergency department with symptoms of profound weakness. Evaluation in the emergency department revealed findings of Hemoccult positive stool, profound leukocytosis, marked elevation of BUN and creatinine of 153 and 11.6 respectively. She had a CT scan at that time which revealed some thickening of the colon which was felt to be nondistention versus possible enterocolitis with numerous other relatively chronic findings. She was admitted to medical surgical floor with diagnosis of sepsis and organ dysfunction at that time. At that time she was complaining of some pain in her lower abdomen and flank. Patient showed further increase in her leukocytosis and some hypernatremia. She has had some confusion. She had a urine culture positive for Klebsiella pneumonia. Chest x-ray has shown possible right lower lobe pneumonia. There was concern for possible aspiration and clindamycin was added. Early this morning patient developed atrial fibrillation with rapid ventricular response rate to 160s. This did not respond to Cardizem as she became hypotensive. There were findings of non-STEMI characterized by elevated troponins. She was seen by cardiology this morning once again. She had progressive leukocytosis to 43,000. Potassium is low at 2.7. Troponins are elevated at 2.78. Patient was complaining of abdominal pain this morning had some vomiting. She was noted to have hypoactive bowel sounds. She was found to have a significant metabolic acidosis with pH of 7.24, PCO2 18.8, base deficit of 19.5. She was started on Levophed drip. She underwent a repeat CT scan with IV and oral contrast this morning which revealed findings of gallstones with gallbladder wall thickening, moderate plaque of the abdominal aorta with moderate narrowing of the infrarenal abdominal aorta, and findings consistent with colitis with colon wall thickening greatest involving the rectosigmoid colon with adjacent inflammatory fat stranding. Surgical consultation was ordered by cardiology at 11:48 AM this morning. Review of Systems - Review of Systems Review of systems:: unable to obtain - *Neurologic Reports weakness, Denies abnormal hearing, Denies behavioral changes, Denies headache(s) [facility] History I have reviewed the patient's past medical history: Yes Medical History: Reports:: Anxiety, Congestive Heart Failure, Chronic Obstructive Pulmonary Disease (COPD), Coronary Artery Disease, Cerebrovascular Accident, Depression, Hyperlipidemia, Hypertension, Myocardial Infarction, Osteoporosis, Palpitations, Renal Insufficiency, Valvular Heart Disease Denies:: Cancer, Diabetes Mellitus Type 1, Diabetes Mellitus Type 2, Internal Pacemaker, MRSA, Seizures *Have you ever received a pneumonia vaccine?: Yes *Have you received a flu vaccine this season?: No Other Medical History: Reports: Arthritis, Fibromyalgia, Liver Disease, Osteoporosis, Other (DDD) Other Surgeries: Yes: Cardiac Catheterization, Colonoscopy, Coronary Stent, Tubal Ligation, Other. No: Pacemaker Amputation: No Fractures: Yes (right wrist) - *Social History Smoking Status: Former smoker Tobacco Type: cigarettes # Packs/Day (cigarettes): 1 Alcohol Intake: never Substance Use Type: denies use *Occupational Status:: unemployed Housing: house Household Members: family *Travel in the last 8 weeks: None - Psychiatric History Pschychiatric History:: Reports:: Anxiety, Depression Family Hx:: Cancer, Diabetes Meds Home Medications Medication Instructions Recorded Confirmed Type atorvastatin 20 mg tab
--- NOTE | 2022-05-29 13:32 | PC.NURSE ---
RESP CARE NOTE: Pt c/o nausea and is actively vomiting. Neb tx not given, due to symptoms.
--- NOTE | 2022-05-29 14:12 | PC.NURSE ---
[address] Brooks office and notified that pt antiemetics are not holding her over til the next dose. pt cannot have any meds until 1600 and 1700 and she is currently dry heaving in her room. also notified that general surgery was consulted by cardiology, and surgeon recommends transfer for patient
--- NOTE | 2022-05-29 14:25 | PC.NURSE ---
pt will be repositioned, but when she begins to gag/retch she turns back on her right side
[2022-05-29 14:30] LABS: Lactic Acid 2.2 mmol/L (0.7-2.1)
--- NOTE | 2022-05-29 14:49 | PC.NURSE ---
late entry: assisted radiology this morning with transfer down to ct. patient dry heaved during transport. was able to make it through scan before vomiting a moderate amount of clear fluid. vitals stable during transport and ct. patient noted be confused and drowsy upon return.
--- NOTE | 2022-05-29 15:07 | HMH.DCSUM ---
General - General Admission date:: 05/24/22 Discharge date: 05/29/22 HPI HPI: Brought in by ambulance. States that she has been sick for about 3 weeks. Primary complaint is that she is extremely generally weak. States that she has been having vomiting and diarrhea. Abdominal pain and chest pain. Shortness of breath. Fevers for the past few days. Decreased urinary output for a few days. Cough. Generalized pain. Reported to have pulse ox of 86% on room air upon EMS arrival. Put on 2 L nasal cannula oxygen during transport. Nursing staff took patient off of oxygen here to check pulse ox and she has been 96% on room air. She was given a liter of normal saline during transport as well. Home medication list includes loperamide prn, looks like it was called in 05-21-22. Patient is a marginal historian. She relays some pain in her lower abdomen and flanks. Brush in place draining clear yellow urine. Workup in the ER included labs and imaging studies. CT abdomen: IMPRESSION: 1. Scattered colonic diverticula, no extraluminal gas bubbles or pericolic fluid to confirm acute diverticulitis. 2. Some liquid stool in the colon which could be due to enterocolitis or diarrheal disease. Much of the distal colon is empty and contracted which likely accounts for slightly thickened appearance, though differential would be colitis. 3. There is no evidence of intestinal perforation or obstruction. 4. Coronary artery disease. 5. A previously reported right renal cyst seen on ultrasound measures 1.[address], with indeterminate HU density measurement of 33, probably complex cyst containing proteinaceous debris or hemorrhage. This is incompletely characterized on this nonenhanced exam, but had a simple appearance on the previous ultrasound. 6. Additional nonemergency and chronic findings as above. Lab studies were markedly abnormal. JHP=918 Creat=11.6 K=5.7 Urinalysis showed 2+ LE 4+ bact TNTC wbc urine culture showing gram negative rods preliminary Patient carries history of Takotsubo cardiomyopathy. [facility] in may 2021 showed severe lv dysfunction with mild coronary vessel disease. Her creatinine on that occasion was 1.20 Home regimen includes aldactone, lasix, entresto. Patient was noted to be extremely dry upon presentation, with mucosal membranes parched. Hospital Course Hospital Course: States that she has been sick for about 3 weeks. Primary complaint is that she is extremely generally weak. States that she has been having vomiting and diarrhea. Abdominal pain and chest pain. Shortness of breath. Fevers for the past few days. Decreased urinary output for a few days. Cough. Generalized pain. Reported to have pulse ox of 86% on room air upon EMS arrival. Put on 2 L nasal cannula oxygen during transport. Nursing staff took patient off of oxygen here to check pulse ox and she has been 96% on room air. She was given a liter of normal saline during transport as well. LRH=150 Creat=11.6 K=5.7 Urinalysis showed 2+ LE 4+ bact TNTC wbc urine culture showing gram negative rods preliminary Patient was noted to be extremely dry upon presentation, with mucosal membranes parched. 05/29/2022 abdomen/pelvis CT: FINDINGS: Abdomen: Motion artifact is identified on many of the images. There is bilateral lower lobe atelectasis/scar. The liver is normal in size and attenuation. There are multiple gallstones with gallbladder wall thickening, cholecystitis is not excluded. The spleen is unremarkable. The adrenals are normal. The pancreas is unremarkable. There is a cyst in the posterior right kidney measuring 16 mm. There is moderate vascular calcification with moderate plaque of the abdominal aorta. There is moderate narrowing of the infrarenal abdominal aorta. There is no free fluid or adenopathy. Pelvis: The appendix is unremarkable. A Brush catheter is pres
--- NOTE | 2022-05-29 16:37 | PC.NURSE ---
Notified ALESHA Chau about patient being transferred to Emergency Room.
--- NOTE | 2022-05-29 17:00 | PC.NURSE ---
Late entry: Received call from transfer center at [facility] @ [id number] I was advised that the pt was to be transferred to the ER because no ICU beds were available and the patient was deemed a Surgical Emergency 1553 attempted to call report to ER Charge nurse. When speaking with Ping in ER, advised pt was admitted on 05/24, she inquired if pt was inpatient. She was advised that the patient was an inpatient at this time. Ping stated that she would need to speak with her knitting supervisor to ensure that she was able to receive report as well as the patient. 1613 Ping returned call and stated that her knitting supervisor said the patient was approved for transfer, she stated that the patient was approved for transfer by Dr Billingsley and that he was also the accepting physician for this patient.
--- NOTE | 2022-05-29 17:07 | PC.NURSE ---
Addendum entered by Linsey Stone RN 05/29/22 18:05: 1626 patient daughter pj sandhu and ALESHA Chau were informed that pt was being transferred to [facility] ER for further surgical intervention. 1706 called pt daughter and informed her that the pt had just left with the ambulance enroute to [facility] ER Original Note: Pt left with [facility], called and notified pt daughter that she is enroute at this time.
[2022-05-29 18:17] LABS: Reflex Lactic Add Lactic Reflex
== END 2022-05-29 17:00 | disposition short-term general hospital (02) | DRG 872 ==
LOC: ER 19:34 → 2ND 19:48
PROVIDERS: Internal Medicine Adolescent Medicine; Nurse Practitioner Family; Surgery; Admitting Provider Family Medicine; Emergency Provider Emergency Medicine; PCP Emergency Medicine; Visit Provider Family Medicine
DX: A41.9 Sepsis, unspecified organism (principal); N17.9 Acute kidney failure, unspecified; N39.0 Urinary tract infection, site not specified; I50.22 Chronic systolic (congestive) heart failure; I5A Non-ischemic myocardial injury (non-traumatic); K55.9 Vascular disorder of intestine, unspecified; R65.20 Severe sepsis without septic shock; Z87.891 Personal history of nicotine dependence; F41.9 Anxiety disorder, unspecified; F32.A Depression, unspecified; J44.9 Chronic obstructive pulmonary disease, unspecified; E86.0 Dehydration; I12.9 Hypertensive chronic kidney disease with stage 1 through stage 4 chronic kidney disease, or unspecified chronic kidney disease; N18.9 Chronic kidney disease, unspecified; I25.10 Atherosclerotic heart disease of native coronary artery without angina pectoris; Z86.73 Personal history of transient ischemic attack (TIA), and cerebral infarction without residual deficits; M54.9 Dorsalgia, unspecified; G89.29 Other chronic pain; M81.0 Age-related osteoporosis without current pathological fracture; M19.90 Unspecified osteoarthritis, unspecified site; Z95.5 Presence of coronary angioplasty implant and graft; B96.1 Klebsiella pneumoniae [K. pneumoniae] as the cause of diseases classified elsewhere
CPT/HCPCS: 36415; 51702; 71045; 74176; 74177; 80048; 80053; 80305; 81001; 82140; 82272; 82803; 82962; 83605; 83880; 84484; 85007; 85025; 87040; 87086; 87088; 87186; 87506; 92610; 93005; 93308; 93976; 94640; 99291; C9803; G0328; J0282; J0696; J2405; J7060; Q9967; U0003; U0005

== ENCOUNTER → 2022-07-11 07:12 | Outpatient (CLI) | payer MEDICARE, SELFPAY | PROVIDERS: PCP Emergency Medicine; Visit Provider Emergency Medicine | DX: M47.816 Spondylosis without myelopathy or radiculopathy, lumbar region (principal) ==

== ENCOUNTER → 2022-07-11 14:31 | Outpatient (CLI) | payer MEDICARE, SELFPAY ==
[2022-07-11 16:28] LABS: Blood Urea Nitrogen 12 mg/dl (7-17); Carbon Dioxide 30 mmol/L (22.0-30.0); Chloride 102 mmol/L (98-107); Estimated Glomerular Filt Rate 55 ml/min (>60); GFR (African American) 67 ML/MIN (>60); Glucose 67 mg/dl (74-100); Sodium 142 mmol/L (136-145)
[2022-07-11 18:37] LABS: Amphetamine/Metha Screen,Urine Negative ng/ml (<1000)
[2022-07-11 18:38] LABS: Barbiturates Screen,Urine Negative ng/ml (<200)
[2022-07-11 18:39] LABS: Benzodiazepines Screen,Urine Negative ng/ml (<200)
[2022-07-11 18:40] LABS: Cannabinoid Screen,Urine Positive ng/ml (<50); Cocaine Screen,Urine Negative ng/ml (<300)
[2022-07-11 18:41] LABS: Methadone Screen,Urine Negative ng/ml (<300)
[2022-07-11 18:42] LABS: Opiate Screen,Urine Negative ng/ml (<300); Phencyclidine Screen,Urine Negative ng/ml (<25)
== END ==
PROVIDERS: PCP Internal Medicine; Visit Provider Emergency Medicine
DX: M47.816 Spondylosis without myelopathy or radiculopathy, lumbar region (principal)
CPT/HCPCS: 36415; 80048; 80305

== ENCOUNTER → 2022-09-26 14:56 | Outpatient (CLI) | payer MEDICARE, SELFPAY ==
--- NOTE | 2022-09-26 15:04 | US_ITS ---
FINAL REPORT TECHNIQUE: Ultrasound images of the kidneys and bladder were obtained. CLINICAL HISTORY: CKD STAGE 3 FINDINGS: The right kidney measures 10.9 cm in length. It is normal in echogenicity. There is no hydronephrosis. There is a right renal cyst measuring 1.6 cm. The left kidney measures 10.0 cm in length. It is normal in echogenicity. There is no hydronephrosis. The spleen is unremarkable. IMPRESSION: Right renal cyst. Reviewed, Interpreted and Dictated by Damian Valles III, MD Transcribed by Trina Del Valle Authenticated and [facility]
== END ==
LOC: RAD 14:59
PROVIDERS: PCP Emergency Medicine; Visit Provider Internal Medicine Nephrology
DX: N18.32 Chronic kidney disease, stage 3b (principal)
CPT/HCPCS: 76770

== ENCOUNTER → 2022-11-05 13:45 | Outpatient (CLI) | payer MEDICARE, SELFPAY ==
[2022-11-05 19:17] LABS: Chloride 106 mmol/L (98-107); Potassium 5.1 mmoL/L (3.5-5.1); Sodium 142 mmol/L (136-145)
[2022-11-05 19:20] LABS: Alanine Aminotransferase 10 U/L (12-78); Albumin Level 4.7 g/dl (3.5-5.0); Albumin/Globulin Ratio 1.7 (1.1-1.8); Alkaline Phosphatase 59 U/L (38-126); Anion Gap 11.1 mEq/L (5-15); Aspartate Amino Transferase 25 U/L (14-36); Bilirubin,Total 0.6 mg/dl (0.2-1.3); Blood Urea Nitrogen 21 mg/dl (7-17); Calcium 10.1 mg/dl (8.4-10.2); Carbon Dioxide 30 mmol/L (22.0-30.0); Estimated Glomerular Filt Rate 55 ml/min (>60); GFR (African American) 67 ML/MIN (>60); Globulin 2.7 g/dL (1.3-3.2); Glucose 96 mg/dl (74-100); Total Protein,Serum 7.4 g/dl (6.3-8.2)
[2022-11-05 19:25] LABS: Basophils # 0.1 K/mm3 (0-0.2); Eosinophils # 0.5 K/mm3 (0.0-0.4); Eosinophils % 4.7 % (0.1-12.0); Hematocrit 45.5 % (37.0-47.0); Hemoglobin 14.9 g/dL (12.2-16.2); Lymphocytes # 3.2 K/mm3 (0.7-4.5); Lymphocytes % 29.3 % (10-50); Mean Corpuscular HGB Conc 32.6 g/dL (31.8-35.4); Mean Corpuscular Hemoglobin 28.1 pg (27.0-31.2); Mean Corpuscular Volume 86.2 fl (81-99); Mean Platelet Volume 11.1 fl (7.4-10.4); Monocytes # 0.5 K/mm3 (0.1-1.0); Monocytes % 4.6 % (1.7-9.3); Neutrophils # 6.5 K/mm3 (1.8-7.8); Neutrophils % 60.4 % (37.0-80.0); Platelet Count 221 K/mm3 (142-424); Red Blood Count 5.28 M/mm3 (4.20-5.40); Red Cell Distribution Width 14.2 % (11.5-17.5); White Blood Count 10.8 K/mm3 (4.8-10.8)
[2022-11-05 19:56] LABS: Amphetamine/Metha Screen,Urine Negative ng/ml (<1000); Barbiturates Screen,Urine Negative ng/ml (<200)
[2022-11-05 19:57] LABS: Benzodiazepines Screen,Urine Negative ng/ml (<200)
[2022-11-05 19:58] LABS: Cannabinoid Screen,Urine Positive ng/ml (<50); Cocaine Screen,Urine Negative ng/ml (<300)
[2022-11-05 19:59] LABS: Methadone Screen,Urine Negative ng/ml (<300)
[2022-11-05 20:00] LABS: Opiate Screen,Urine Negative ng/ml (<300); Phencyclidine Screen,Urine Negative ng/ml (<25)
[2022-11-05 20:15] LABS: Erythrocyte Sedimentation Rate 11 mm/hr (0-30)
== END ==
PROVIDERS: PCP Emergency Medicine; Visit Provider Emergency Medicine
DX: E66.3 Overweight (principal); M47.816 Spondylosis without myelopathy or radiculopathy, lumbar region
CPT/HCPCS: 80053; 80305; 85025; 85651

== ENCOUNTER → 2022-12-08 14:05 | Outpatient (CLI) | payer MEDICARE, SELFPAY ==
[2022-12-08 15:02] LABS: Microalbumin/Creatinine Ratio 30.8
[2022-12-08 15:08] LABS: Creatinine,Urine Random 24 mg/dL (Not Estab.)
[2022-12-08 15:21] LABS: Albumin Level 4.5 g/dl (3.5-5.0); Blood Urea Nitrogen 19 mg/dl (7-17); Calcium 9.7 mg/dl (8.4-10.2); Carbon Dioxide 33 mmol/L (22.0-30.0); Chloride 103 mmol/L (98-107); Estimated Glomerular Filt Rate 49 ml/min (>60); GFR (African American) 60 ML/MIN (>60); Glucose 83 mg/dl (74-100); Phosphorous 3.7 mg/dl (2.5-4.5); Sodium 138 mmol/L (136-145)
[2022-12-08 15:33] LABS: Intact Parathyroid Hormone 114.1 pg/mL (7.5-53.5)
[2022-12-08 15:38] LABS: 25-OH Vitamin D, Total 34.8 ng/mL (30-100)
[2022-12-08 15:53] LABS: Basophils # 0.1 K/mm3 (0-0.2); Eosinophils # 0.7 K/mm3 (0.0-0.4); Eosinophils % 5.4 % (0.1-12.0); Hematocrit 43.9 % (37.0-47.0); Hemoglobin 13.9 g/dL (12.2-16.2); Lymphocytes % 24.6 % (10-50); Mean Corpuscular HGB Conc 31.6 g/dL (31.8-35.4); Mean Corpuscular Hemoglobin 27.4 pg (27.0-31.2); Mean Corpuscular Volume 86.7 fl (81-99); Mean Platelet Volume 10.2 fl (7.4-10.4); Monocytes # 0.7 K/mm3 (0.1-1.0); Monocytes % 5.4 % (1.7-9.3); Neutrophils # 7.7 K/mm3 (1.8-7.8); Neutrophils % 63.5 % (37.0-80.0); Platelet Count 218 K/mm3 (142-424); Red Blood Count 5.06 M/mm3 (4.20-5.40); Red Cell Distribution Width 14.6 % (11.5-17.5); White Blood Count 12.1 K/mm3 (4.8-10.8)
== END ==
PROVIDERS: PCP Emergency Medicine; Visit Provider Internal Medicine Nephrology
DX: N18.32 Chronic kidney disease, stage 3b (principal); I10 Essential (primary) hypertension; N25.0 Renal osteodystrophy
CPT/HCPCS: 36415; 80069; 82043; 82306; 82570; 83970; 85025

== ENCOUNTER → 2023-01-02 22:36 | Outpatient (CLI) | payer MEDICARE, SELFPAY ==
[2023-01-02 18:52] LABS: Amphetamine/Metha Screen,Urine Negative ng/ml (<1000)
[2023-01-02 18:53] LABS: Barbiturates Screen,Urine Negative ng/ml (<200); Benzodiazepines Screen,Urine Negative ng/ml (<200)
[2023-01-02 18:54] LABS: Cannabinoid Screen,Urine Positive ng/ml (<50); Cocaine Screen,Urine Negative ng/ml (<300)
[2023-01-02 18:55] LABS: Opiate Screen,Urine Negative ng/ml (<300)
[2023-01-02 18:56] LABS: Phencyclidine Screen,Urine Negative ng/ml (<25)
[2023-01-02 23:09] LABS: Methadone Screen,Urine Negative ng/ml (<300)
== END ==
PROVIDERS: PCP Emergency Medicine; Visit Provider Emergency Medicine
DX: M47.816 Spondylosis without myelopathy or radiculopathy, lumbar region (principal)
CPT/HCPCS: 80305

== ENCOUNTER 2023-03-17 08:49 | Day surgery (SDC) | payer MEDICARE, SELFPAY ==
[2023-03-17] VITALS (7 sets, daily range): BP systolic 113–147; BP diastolic 45–60; PULSE 60–68; RESP 16–19; O2SAT 90–96; BMI 25.6
--- NOTE | 2023-03-17 | IR_ITS ---
APPROVED REPORT Patient Location: Outpatient Employment Representative: JEANNINE Dockery RT (R) PROCEDURES 1. Pocket formation for Permanent Pacemaker Placement. 2. Placement of an atrial sensing and pacing coil into the right atrial appendage. 3. Placement of a ventricular sensing and pacing coil in the right ventricular apex. 4. Permanent Pacemaker Placement. INDICATION Symptomatic Bradycardia Informed consent was obtained prior to the procedure. COMPLICATIONS None Estimated Blood Loss: Less than 10 mls TECHNIQUE 1% Lidocaine with epinephrine used to anesthetized the left anterior aspect of the chest. Scalpel was used to make the initial cutaneous incision while electrocautery was used to dissect down tinto the fascia. The fascia was lifted off the pectoralis muscle and digitally manipulated creating a pocket for the pacemaker. The patient was then placed in Trendelenburg position and the subclavian vein was accessed twice via the Selinger technique, there are two wires in the vein. A 6 Kazakh sheath was placed under fluoroscopic guidance into the subclavian vein over one of the wires while keeping the other wire in place within the subclavian vein. The dilator was removed from the sheath. Using fluoroscopic guidance, the ventricular lead was placed into the right ventricular apex, screwed and secured into place. Electronic interrogation proved acceptable thresholds and voltage within the lead. Using 3-0 silk, the ventricular lead was then secured into place. Lead was secured to the facia using the 3-0 silk. Following this, the sheath was pealed away. An additional 6 Kazakh fresh sheath and dilator was placed over the existing wire. Using fluoroscopic guidance, the atrial lead was the placed into the right atrial appendage and screwed and secured in place. Electrical interrogation demonstrated acceptable thresholds and voltage number. The atrial lead was then secured into place using 3-0 silk. 1 gram of Ancef was used to flush the pocket. Following the pacemaker generator being secured to the fascia and in place, Monocryl was used to close the subcutaneous layers while karen were used to close the cutaneous layer. A pressure dressing was placed and the patient was transferred to the postop holding area in stable condition for postoperative care. INTERROGATION Generator Model number: [id number] Generator Serial number: [id number] Atrial lead model number: 2088TC/46 Atrial lead serial number: [id number] P-wave: 3.0 mv Impedence: 1.0v@0.4ms Threshold: 560 ohms Right Ventricular lead model number: 2088TC/52 Right Ventricular lead serial number: [id number] R-wave: 8mv Impedence: 0.75v@1 Threshold: 120 ohms Pacing Parameters: Mode: DDDR Base/Max Track:60 ppm / 130 ppm No diaphragmatic stimulation at 10 volts. IMPRESSION 1. Successful pocket formation for Permanent Pacemaker Placement. 2. Successful placement of an atrial sensing and pacing coil into the right atrial appendage. 3. Successful placement of a ventricular sensing and pacing coil in the right ventricular apex. 4. Successful permanent Pacemaker Placement. PLAN 1. Post op wound care Electronically signed by : Rahul Carter MD 03/18/2023 10:03:28
[2023-03-17 09:28] LABS: Basophils # 0.1 K/mm3 (0-0.2); Basophils % 0.6 % (0.1-2.0); Eosinophils # 0.5 K/mm3 (0.0-0.4); Eosinophils % 4.9 % (0.1-12.0); Hematocrit 46.8 % (37.0-47.0); Hemoglobin 14.8 g/dL (12.2-16.2); Lymphocytes # 2.2 K/mm3 (0.7-4.5); Lymphocytes % 21.6 % (10-50); Mean Corpuscular HGB Conc 31.6 g/dL (31.8-35.4); Mean Corpuscular Hemoglobin 27.6 pg (27.0-31.2); Mean Corpuscular Volume 87.4 fl (81-99); Mean Platelet Volume 9.8 fl (7.4-10.4); Monocytes # 0.4 K/mm3 (0.1-1.0); Neutrophils # 7.1 K/mm3 (1.8-7.8); Neutrophils % 68.8 % (37.0-80.0); Platelet Count 212 K/mm3 (142-424); Red Blood Count 5.35 M/mm3 (4.20-5.40); Red Cell Distribution Width 14.4 % (11.5-17.5); White Blood Count 10.3 K/mm3 (4.8-10.8)
[2023-03-17 09:29] LABS: Chloride 104 mmol/L (98-107)
[2023-03-17 09:30] LABS: Potassium 4.4 mmoL/L (3.5-5.1); Sodium 143 mmol/L (136-145)
[2023-03-17 09:33] LABS: Anion Gap 14.4 mEq/L (5-15); Blood Urea Nitrogen 19 mg/dl (7-17); Calcium 9.6 mg/dl (8.4-10.2); Carbon Dioxide 29 mmol/L (22.0-30.0); Creatinine Clearance Estimated 33 mL/min (50-200); Estimated Glomerular Filt Rate 35 ml/min (>60); GFR (African American) 42 ML/MIN (>60); Glucose 101 mg/dl (74-100)
--- NOTE | 2023-03-17 11:59 | XR_ITS ---
FINAL REPORT CLINICAL HISTORY: POST PACEMAKER COMPARISON: May 2022 FINDINGS: The heart size is normal. Left-sided pacemaker is noted. The mediastinum is within normal limits. There is mild atelectasis in the left lung base. There is no pleural effusion. There is no pneumothorax. The bony thorax is intact. IMPRESSION: Left-sided pacemaker without pneumothorax. Reviewed, Interpreted and Dictated by Good Castillo MD Transcribed by Jovon Reyna Authenticated and [facility]
--- NOTE | 2023-03-17 12:11 | EXP.ANES.CKL ---
[facility] Disclaimer: The information contained in this section may have been updated after the patient was seen, as this information can be updated by other users. Medical History Abnormal EKG Atypical angina Chest pain COPD (chronic obstructive pulmonary disease) Dizziness Edema Facial droop Fatigue HTN (hypertension) Near syncope ADIEL (obstructive sleep apnea) Sinus bradycardia Symptomatic bradycardia TIA (transient ischemic attack) Tobacco dependence syndrome Viral cardiomyopathy Social History (Updated 03/17/23 @ 09:08 by Juliana Hayes RN) Smoking Status: Former smoker second hand exposure: Yes alcohol intake: never substance use type: denies use current occupational status: unemployed Travel in the last 8 weeks: None household members: family housing: house current occupational exposures/hazards: No caffeine: Yes [facility] Anesthesia Checklist Patient Identification Patient Identification: Arm Band Structural Data Admitted From: Home Planned Operative Procedure/s: Dual Chamber Pacemaker Consent for Planned Operative Procedure(s) Verified: Yes Verified Documents: Surgical Consent and History and Physical NPO Status Verified Time NPO: 00:00 Additional verifications Anesthesia Reactions: No Hx Blood Transfusions: No Airway Assessment C-Spine Mobility Assessed: Yes TMJ Mobility Assessed: Yes Dentition: Good Dentition Neurological Assessment Level of Consciousness: Awake and Alert Anesthesia Plan Anesthesia Risk discussed: Yes Anesthesia Plan: Verified ASA Class: III Anesthesia Type: MAC
== END 2023-03-17 14:10 | disposition home or self-care (01) ==
PROVIDERS: PCP Emergency Medicine; Visit Provider Internal Medicine
DX: I49.5 Sick sinus syndrome (principal); F17.210 Nicotine dependence, cigarettes, uncomplicated; I25.10 Atherosclerotic heart disease of native coronary artery without angina pectoris; I34.0 Nonrheumatic mitral (valve) insufficiency; E78.5 Hyperlipidemia, unspecified; R55 Syncope and collapse; I11.0 Hypertensive heart disease with heart failure; I50.9 Heart failure, unspecified; Z79.01 Long term (current) use of anticoagulants; Z79.899 Other long term (current) drug therapy
CPT/HCPCS: 33208; 71045; 80048; 85025; C1785; C1898

== ENCOUNTER → 2023-04-29 12:47 | Outpatient (CLI) | payer MEDICARE, SELFPAY ==
[2023-04-29 12:52] LABS: Phencyclidine Screen,Urine Negative ng/ml (<25)
[2023-04-29 12:55] LABS: Amphetamine/Metha Screen,Urine Negative ng/ml (<1000); Barbiturates Screen,Urine Negative ng/ml (<200)
[2023-04-29 12:56] LABS: Benzodiazepines Screen,Urine Negative ng/ml (<200)
[2023-04-29 12:57] LABS: Cannabinoid Screen,Urine Positive ng/ml (<50); Cocaine Screen,Urine Negative ng/ml (<300)
[2023-04-29 12:58] LABS: Methadone Screen,Urine Negative ng/ml (<300)
[2023-04-29 12:59] LABS: Opiate Screen,Urine Negative ng/ml (<300)
== END ==
PROVIDERS: PCP Emergency Medicine; Visit Provider Emergency Medicine
DX: M47.816 Spondylosis without myelopathy or radiculopathy, lumbar region (principal); Z79.899 Other long term (current) drug therapy
CPT/HCPCS: 80305

== ENCOUNTER → 2023-06-09 11:03 | Outpatient (CLI) | payer MEDICARE, SELFPAY ==
[2023-06-09 11:33] LABS: Basophils # 0.1 K/mm3 (0-0.2); Basophils % 0.7 % (0.1-2.0); Eosinophils # 0.6 K/mm3 (0.0-0.4); Eosinophils % 5.8 % (0.1-12.0); Hematocrit 42.8 % (37.0-47.0); Hemoglobin 13.4 g/dL (12.2-16.2); Lymphocytes # 2.5 K/mm3 (0.7-4.5); Lymphocytes % 24.4 % (10-50); Mean Corpuscular HGB Conc 31.3 g/dL (31.8-35.4); Mean Corpuscular Hemoglobin 27.9 pg (27.0-31.2); Mean Corpuscular Volume 89.4 fl (81-99); Mean Platelet Volume 11.2 fl (7.4-10.4); Monocytes # 0.5 K/mm3 (0.1-1.0); Monocytes % 4.7 % (1.7-9.3); Neutrophils # 6.7 K/mm3 (1.8-7.8); Neutrophils % 64.5 % (37.0-80.0); Platelet Count 208 K/mm3 (142-424); Red Blood Count 4.79 M/mm3 (4.20-5.40); Red Cell Distribution Width 13.9 % (11.5-17.5); White Blood Count 10.5 K/mm3 (4.8-10.8)
[2023-06-09 11:41] LABS: Creatinine,Urine Random 66 mg/dL (Not Estab.)
[2023-06-09 11:45] LABS: Microalbumin/Creatinine Ratio 12.4
[2023-06-09 12:56] LABS: Albumin Level 4.9 g/dl (3.5-5.0); Anion Gap 18.4 mEq/L (5-15); Blood Urea Nitrogen 56 mg/dl (7-17); Carbon Dioxide 21 mmol/L (22.0-30.0); Chloride 105 mmol/L (98-107); Estimated Glomerular Filt Rate 18 ml/min (>60); GFR (African American) 22 ML/MIN (>60); Glucose 100 mg/dl (74-100); Phosphorous 4.8 mg/dl (2.5-4.5); Sodium 138 mmol/L (136-145)
[2023-06-09 13:05] LABS: Potassium 6.4 mmoL/L (3.5-5.1)
[2023-06-09 13:07] LABS: Intact Parathyroid Hormone 110.6 pg/mL (7.5-53.5)
== END ==
PROVIDERS: PCP Emergency Medicine; Visit Provider Internal Medicine Nephrology
DX: N18.30 Chronic kidney disease, stage 3 unspecified (principal)
CPT/HCPCS: 36415; 80069; 82043; 82570; 83970; 85025

== ENCOUNTER → 2023-06-29 12:07 | Outpatient (CLI) | payer MEDICARE, SELFPAY ==
[2023-06-29 12:25] LABS: Microscopic, Urine URINE MICROSCOPIC (MICROSCOPIC)
[2023-06-29 12:36] LABS: Amphetamine/Metha Screen,Urine Negative ng/ml (<1000); Barbiturates Screen,Urine Negative ng/ml (<200)
[2023-06-29 12:37] LABS: Benzodiazepines Screen,Urine Negative ng/ml (<200); Cannabinoid Screen,Urine Positive ng/ml (<50)
[2023-06-29 12:38] LABS: Cocaine Screen,Urine Negative ng/ml (<300)
[2023-06-29 12:39] LABS: Methadone Screen,Urine Negative ng/ml (<300); Opiate Screen,Urine Negative ng/ml (<300)
[2023-06-29 12:40] LABS: Phencyclidine Screen,Urine Negative ng/ml (<25)
[2023-06-29 12:56] LABS: Hemoglobin 12.2 g/dL (12.2-16.2); Mean Corpuscular HGB Conc 31.4 g/dL (31.8-35.4); Mean Corpuscular Hemoglobin 28.5 pg (27.0-31.2); Mean Corpuscular Volume 90.7 fl (81-99); Platelet Count 210 K/mm3 (142-424); White Blood Count 10.8 K/mm3 (4.8-10.8)
[2023-06-29 13:09] LABS: Appearance,Urine CLEAR (Clear); Bilirubin,Urine Negative (Negative); Blood, Urine Negative (Negative); Color,Urine YELLOW (Yellow); Glucose,Urine (UA) Negative (Negative); Ketones,Urine Negative (Negative); Leukocyte Esterase,Urine TRACE (Negative); Nitrate,Urine Negative (Negative); Protein,Urine Negative (Negative); Urobilinogen,Urine 0.2 EU/dl (0.2)
[2023-06-29 13:21] LABS: Bacteria,Urine 1+ /lpf
[2023-06-29 13:38] LABS: Albumin Level 4.7 g/dl (3.5-5.0); Anion Gap 16.5 mEq/L (5-15); Blood Urea Nitrogen 34 mg/dl (7-17); Calcium 10.2 mg/dl (8.4-10.2); Carbon Dioxide 23 mmol/L (22.0-30.0); Chloride 105 mmol/L (98-107); Estimated Glomerular Filt Rate 23 ml/min (>60); GFR (African American) 28 ML/MIN (>60); Glucose 84 mg/dl (74-100); Phosphorous 3.7 mg/dl (2.5-4.5); Sodium 138 mmol/L (136-145)
[2023-06-29 13:51] LABS: Intact Parathyroid Hormone 78.9 pg/mL (7.5-53.5)
[2023-06-29 13:55] LABS: 25-OH Vitamin D, Total 66.4 ng/mL (30-100); Potassium 6.5 mmoL/L (3.5-5.1)
== END ==
PROVIDERS: Nurse Practitioner; PCP Emergency Medicine; Visit Provider Emergency Medicine
DX: M47.816 Spondylosis without myelopathy or radiculopathy, lumbar region (principal); N17.9 Acute kidney failure, unspecified; E55.9 Vitamin D deficiency, unspecified; Z79.899 Other long term (current) drug therapy; B96.29 Other Escherichia coli [E. coli] as the cause of diseases classified elsewhere
CPT/HCPCS: 36415; 80069; 80305; 81001; 82306; 83970; 84155; 85014; 85018; 85048; 85049; 87086; 87186

== ENCOUNTER → 2023-07-15 11:35 | Outpatient (CLI) | payer MEDICARE, SELFPAY ==
[2023-07-15 12:54] LABS: Albumin Level 4.2 g/dl (3.5-5.0); Anion Gap 15.1 mEq/L (5-15); Blood Urea Nitrogen 31 mg/dl (7-17); Calcium 9.6 mg/dl (8.4-10.2); Carbon Dioxide 27 mmol/L (22.0-30.0); Chloride 106 mmol/L (98-107); Estimated Glomerular Filt Rate 22 ml/min (>60); GFR (African American) 27 ML/MIN (>60); Glucose 107 mg/dl (74-100); Potassium 5.1 mmoL/L (3.5-5.1); Sodium 143 mmol/L (136-145)
== END ==
PROVIDERS: PCP Emergency Medicine; Visit Provider Nurse Practitioner
DX: E87.5 Hyperkalemia (principal)
CPT/HCPCS: 36415; 80069

== ENCOUNTER → 2023-08-04 09:31 | Outpatient (CLI) | payer MEDICARE, SELFPAY ==
--- NOTE | 2023-08-04 09:35 | US_ITS ---
FINAL REPORT TECHNIQUE: Sonographic images were obtained of the retroperitoneum. CLINICAL HISTORY: KIDNEY DISEASE FINDINGS: The right kidney measures 9.2 cm. The left kidney measures 8.6 cm. There is no evidence of renal mass or hydronephrosis. There is mild left renal cortical thinning. There is a 1.7 cm cyst on the right. The spleen measures within normal limits. IMPRESSION: Right renal cyst. Mild left renal cortical thinning. Reviewed, Interpreted and Dictated by Damian Valles III, MD Transcribed by Jovon Reyna Authenticated and [facility]
== END ==
LOC: RAD 09:31
PROVIDERS: PCP Emergency Medicine; Visit Provider Nurse Practitioner
DX: N18.32 Chronic kidney disease, stage 3b (principal)
CPT/HCPCS: 76770

== ENCOUNTER → 2023-08-25 14:33 | Outpatient (CLI) | payer MEDICARE, SELFPAY ==
[2023-08-25 14:12] LABS: Amphetamine/Metha Screen,Urine Negative ng/ml (<1000)
[2023-08-25 14:14] LABS: Barbiturates Screen,Urine Negative ng/ml (<200)
[2023-08-25 14:15] LABS: Benzodiazepines Screen,Urine Negative ng/ml (<200); Cannabinoid Screen,Urine Positive ng/ml (<50)
[2023-08-25 14:16] LABS: Methadone Screen,Urine Negative ng/ml (<300)
[2023-08-25 14:17] LABS: Opiate Screen,Urine Negative ng/ml (<300)
[2023-08-25 14:18] LABS: Phencyclidine Screen,Urine Negative ng/ml (<25)
[2023-08-25 17:49] LABS: Cocaine Screen,Urine Negative ng/ml (<300)
== END ==
PROVIDERS: PCP Emergency Medicine; Visit Provider Emergency Medicine
DX: Z79.899 Other long term (current) drug therapy (principal); N39.0 Urinary tract infection, site not specified; B96.29 Other Escherichia coli [E. coli] as the cause of diseases classified elsewhere
CPT/HCPCS: 80305; 87086

== ENCOUNTER 2023-10-23 09:52 | Outpatient (CLI) | payer MEDICARE, SELFPAY ==
[2023-10-23 13:24] LABS: Amphetamine/Metha Screen,Urine Negative ng/ml (<1000); Barbiturates Screen,Urine Negative ng/ml (<200); Benzodiazepines Screen,Urine Negative ng/ml (<200); Cannabinoid Screen,Urine Positive ng/ml (<50); Cocaine Screen,Urine Negative ng/ml (<300); Methadone Screen,Urine Negative ng/ml (<300); Opiate Screen,Urine Negative ng/ml (<300); Phencyclidine Screen,Urine Negative ng/ml (<25)
[2023-10-29 13:21] LABS: Gabapentin,Urine >800.0 ug/mL (.)
[2023-10-29 15:10] LABS: Alprazolam Negative (Cutoff=100); Benzodiazepines Positive ng/mL (Cutoff=100); Clonazepam Positive (.); Clonazepam Confirm 188 ng/mL (Cutoff=100); Flurazepam Negative (Cutoff=100); Lorazepam Negative (Cutoff=100); Midazolam Negative (Cutoff=100); Temazepam Negative (Cutoff=100); Triazolam Negative (Cutoff=100)
== END 2023-10-23 23:59 ==
LOC: LAB.DROPOF 10-24 09:53
PROVIDERS: PCP Nurse Practitioner Family; Visit Provider Nurse Practitioner Family
DX: Z79.899 Other long term (current) drug therapy (principal); M47.816 Spondylosis without myelopathy or radiculopathy, lumbar region
CPT/HCPCS: 80307; 80346

== ENCOUNTER 2023-11-06 10:20 | Observation (INO) | payer MEDICARE, SELFPAY ==
[2023-11-06] VITALS (11 sets, daily range): BP systolic 90–111; BP diastolic 46–76; PULSE 61–109; RESP 16–30; TEMP 36.4–37.1; O2SAT 95–99; BMI 19.5; BMI 19.6
--- NOTE | 2023-11-06 10:22 | ECG_ITS ---
APPROVED REPORT Exam: Resting ECG HR:129 bpm ECG Measurements Heart Rate 129 AXES RI 127 P 81 QRSd 90 QRS 51 QT 311 T 73 QTc [address] DEPRESSION, CONSIDER SUBENDOCARDIAL INJURY [0.1+ mV ST DEPRESSION] ABNORMAL ECG UNCONFIRMED REPORT Electronically signed by : Rafy Weston MD 11/06/2023 15:05:18
--- NOTE | 2023-11-06 10:44 | ED_ITS ---
Discharge Plan Disposition Patient Disposition: Admitted Clinical Impressions Clinical Impression: Sepsis Discharge ED Provider: Adonis Scherer Adult HPI General Chief complaint: Weakness Stated complaint: N/V/D Time Seen by Provider: 11/06/23 10:31 Mode of Arrival: EMS Limitations: No Limitations Description of Symptoms (Recalled from ER Triage Doc. by RN): PT BROUGHT BY EMS FOR WEAKNESS, VOMITING X 3 DAYS. PT ARRIVES DIAPHORETIC, VOMITING AND WEAK. PT REPORTS ABDOMINAL PAIN History of Present Illness HPI narrative: Patient is a 67-year-old female with history of multiple comorbidities including CAD status post pacemaker, CKD, A-fib with RVR, CHF, history of TIA, history of COPD, hypertension, hyperlipidemia, mitral regurgitation, hepatitis C, chronic back pain. She presents today via EMS from home with nausea and vomiting. This reportedly started today, was gradual in onset and is worsened. Initial history is severely limited secondary to altered mental status as well as acuity of patient's condition. She arrives to the emergency department in acute distress, frequent episodes of nonbloody emesis, she describes diffuse abdominal pain that is nonradiating. Reportedly she has recently reinitiated some of her home pain medications. She states she took all of her normal medications today. She is unsure of what they are at this time. Later, patient's power of branch account manager presents to bedside and provides additional history. He expresses that she is largely been bedbound for several days due to generalized weakness and pain. She has had 2 falls that were unwitnessed recently. He is unsure if she sustained any head injury. She has reportedly had symptoms including decreased p.o. intake, diffuse abdominal pain, since some of her pain medications were changed. This was complicated by issues that arose with policies regarding recreational drug use as patient tested positive for marijuana use which she was reportedly using as an appetite stimulant after her prescription medications were discontinued. Patient is subsequently been compliant with her home medications. Patient has had a gradual decline in her state of health for several days, power of branch account manager, who lives with patient, states that he was able to convince her to seek care in the emergency department given ongoing symptoms. Related Data Home Medications Medication Instructions Recorded Confirmed albuterol sulfate 90 mcg/actuation 2 puff inhalation Q6HP PRN 11/06/23 11/06/23 aerosol inhaler Shortness Of Breath apixaban 5 mg tablet (Eliquis) 5 mg PO BID Blood Thinner/Afib 11/06/23 11/06/23 cariprazine 1.5 mg capsule 1.5 mg PO DAILY Mood 11/06/23 11/06/23 (Vraylar) clonazepam 0.5 mg tablet 0.25 mg PO HS Anxiety 11/06/23 11/06/23 clonazepam 0.5 mg tablet 0.5 mg PO DAILY Anxiety 11/06/23 11/06/23 furosemide 40 mg tablet 40 mg PO DAILY Fluid 11/06/23 11/06/23 gabapentin 800 mg tablet 800 mg PO TID Pain 11/06/23 11/06/23 loratadine 10 mg tablet 10 mg PO DAILY Allergy Symptoms 11/06/23 11/06/23 metoprolol succinate 25 mg 25 mg PO DAILY High Blood Pressure 11/06/23 11/06/23 tablet,extended release 24 hr oxybutynin chloride 10 mg 10 mg PO DAILY Bladder 11/06/23 11/06/23 tablet,extended release 24 hr sacubitril 24 mg-valsartan 26 mg 1 tab PO BID Heart Failure 11/06/23 11/06/23 tablet (Entresto) spironolactone 100 mg tablet 100 mg PO DAILY Fluid 11/06/23 11/06/23 Previous Rx's Medication Instructions Recorded atorvastatin 20 mg tablet 20 mg PO HS Cholesterol #90 tabs 01/02/23 escitalopram oxalate 20 mg tablet 20 mg PO DAILY MOOD #90 tabs 01/02/23 omeprazole 20 mg capsule,delayed 20 mg PO DAILY Acid reflux #60 caps 08/26/23 release oxycodone 10 mg tablet 10 mg PO QID MODERATE TO SEVERE 11/03/23 PAIN #12 tabs Allergies Allergy/AdvReac Type Severity Reaction Status Date / Time acetaminophen Allergy Unknown Unknown Verified 11/06/23 15:33 [From DARVOCET-N] allergy reaction codeine [CODEINE] Allergy Unknown Unknown Verified 11/06/23 15:33 allergy reaction propoxyphene Allergy Unknown Unknown Verified 11/06/23 15:33 [From DARVOCET-N] allergy reaction tomato AdvReac Mild Gastrointestinal Verified 11/06/23 15:33 Upset [facility] Disclaimer: The information contained in this section may have been updated after the patient was seen, as this information can be updated by other users. Medical History Abnormal EKG Atypical angina Chest pain COPD (chronic obstructive pulmonary disease) Dizziness Edema Facial droop Fatigue HTN (hypertension) Near syncope ADIEL (obstructive sleep apnea) Sinus bradycardia Symptomatic bradycardia TIA (transient ischemic attack) Tobacco dependence syndrome Viral cardiomyopathy Surgical History Presence of cardiac pacemaker Family History (Updated 11/06/23 @ 15:57 by Loren Apodaca RN) Other No significant family history Social History (Updated 11/06/23 @ 15:57 by Loren Apodaca RN) Smoking Status: Former smoker tobacco type: cigarettes packs per day: 1 second hand exposure: Yes alcohol intake: never substance use type: denies use current occupational status: unemployed Travel in the last 8 weeks: None household members: family housing: house current occupational exposures/hazards: No caffeine: Yes ROS Obtained: Yes Systems reviewed as appropriate & no additional complaints except as documented As per HPI Physical Exam General General appearance: lethargic Comment: Frequent nausea and vomiting Head Head exam: atraumatic and normocephalic Eye Eye exam: Present PERRL Neck Neck exam: Present normal inspection Chest Chest inspection: Present normal inspection and symmetric chest wall rise Respiratory Respiratory exam: Present normal lung sounds bilaterally; Absent respiratory distress Cardiovascular Cardiovascular exam: Present regular rate and normal rhythm Abdominal Exam Abdominal exam: Present soft and tenderness (Generalized tenderness to palpation, concern that this is out of proportion to reported pain as well as severity of symptoms) Neurological Exam Neurological exam: Present alert (Drowsy but arousable, alert and oriented) Expanded Neurological Exam Patient oriented to: Present person and place Speech: Present fluid speech Comment: Sensation and strength intact in all 4 extremities, drowsy but arousable, within confines of emergent exam in the setting of concurrent resuscitation and patients symptoms of frequent nausea and vomiting, no focal deficit appreciated at this time Psychiatric Psychiatric exam: Present normal affect and normal mood Skin Skin exam: Present warm and dry Medical Decision Making Medical Records Medical records reviewed: Yes I reviewed the patient's medical records. Honorio Inquiry Pt receiving controlled substance: No Vital Signs: 11/06/23 10:20 11/06/23 10:30 11/06/23 11:30 Temperature 97.5 F L Temperature Source Oral Pulse Rate 89 101 H Pulse Rate [Apical] 109 H Respiratory Rate 20 30 H Blood Pressure 90/58 L 98/72 L Blood Pressure [Right Arm] 91/56 L Blood Pressure Mean [Right Arm] 67 Blood Pressure Source Blood Pressure Source [Right Arm] Automatic Cuff Blood Pressure Position Blood Pressure Position [Right Arm] Sitting 02 Sat by Pulse Oximetry 97 95 97 Oxygen Delivery Method Room Air 11/06/23 11:47 11/06/23 12:00 11/06/23 12:31 Temperature Temperature Source Pulse Rate 94 H 83 65 Pulse Rate [Apical] Respiratory Rate Blood Pressure 93/66 L 105/76 L 97/59 L Blood Pressure [Right Arm] Blood Pressure Mean [Right Arm] Blood Pressure Source Blood Pressure Source [Right Arm] Blood Pressure Position Blood Pressure Position [Right Arm] 02 Sat by Pulse Oximetry 96 95 97 Oxygen Delivery Method 11/06/23 13:30 11/06/23 14:00 11/06/23 14:37 Temperature 97.9 F Temperature Source Oral Pulse Rate 64 66 62 Pulse Rate [Apical] Respiratory Rate 18 Blood Pressure 111/55 L 102/46 L 105/48 L Blood Pressure [Right Arm] Blood Pressure Mean [Right Arm] Blood Pressure Source Automatic Cuff Blood Pressure Source [Right Arm] Blood Pressure Position Sitting Blood Pressure Position [Right Arm] 02 Sat by Pulse Oximetry 98 98 Oxygen Delivery Method Room Air Room Air Room Air Lab Data Lab Results 11/06/23 10:33: VBG pH 7.28 L, VBG pCO2 33.5 L, VBG pO2 84.2 H, VBG HCO3 15.3 L, VBG Total CO2 16.3 L, VBG O2 Saturation 95.5 H, VBG Base Excess -11.5 L 11/06/23 10:50: WBC 14.8 H, RBC 5.21, Hgb 15.9, Hct 46.0, MCV 88.4, MCH 30.6, MCHC 34.6, RDW 13.8, Plt Count 224, MPV 11.2 H, Neut % (Auto) 83.7 H, Lymph % (Auto) 12.9, [place] % (Auto) 2.1, Eos % (Auto) 0.7, Baso % (Auto) 0.6, Neut # (Auto) 12.4 H, Lymph # (Auto) 1.9, [place] # (Auto) 0.3, Eos # (Auto) 0.1, Baso # (Auto) 0.1, PT 16.1 H, INR 1.53 H, Sodium 143, Potassium 3.5, Chloride 97 L, Carbon Dioxide 16 L, Anion Gap 33.5 H, BUN 52 H, Creatinine 3.50 H, Estimated Creat Clear 11, Estimated GFR 13 L*, Est GFR ( Amer) 16 L*, Glucose 182 H , Calcium 9.0, Phosphorus 6.7 H, Magnesium < 0.2 L, Total Bilirubin 0.8, AST 45 H, ALT 41, Alkaline Phosphatase 101, Total Creatine Kinase 182 H, Troponin I 0.07 H, Total Protein 10.0 H D, Albumin 5.4 H, Globulin 4.6 H, Albumin/Globulin Ratio 1.2, Lipase 391 H, TSH 6.68 H, Free T4 2.48 H, Salicylates < 1.0 L, Plasma/Serum Alcohol < 10, Acetone Level None detected, Blood Type O Negative, Antibody Screen Negative 11/06/23 11:40: Lactate 4.3 H 11/06/23 12:15: Urine Color Yellow, Urine Appearance Clear, Urine pH 6.0, Ur Specific [place] 1.020, Urine Protein Negative, Urine Glucose (UA) Negative, Urine Ketones Negative, Urine Blood Negative, Urine Nitrate Negative, Urine Bilirubin Negative, Urine Urobilinogen 0.2, Ur Leukocyte Esterase Negative, Urine RBC None, Urine WBC None, Ur Squamous Epith Cells Occasional, Urine Bacteria Trace, Urine Opiates Screen Negative, Urine Methadone Screen Negative, Ur Barbituates Screen Negative, Ur Phencyclidine Scrn Negative, Ur Amphetamines Screen Negative, U Benzodiazepines Scrn Negative, Urine Cocaine Screen Negative, U Marijuana (THC) Screen Positive H 11/06/23 13:55: Troponin I 0.08 H 11/06/23 10:50 11/06/23 10:50 Orders (Tests/Meds): ED MEDICATIONS Generic Name Dose Route Start Last Admin Trade Name Freq PRN Reason Stop Dose Admin Al Hydrox/Mg Hydrox/Simethicone 30 ml 11/06/23 15:02 Aluminum/Magnesium/Simethicone 30ml Udc PO 12/06/23 15:01 QIDP PRN Dyspepsia Docusate Sodium 100 mg 11/06/23 15:15 Docusate Sodium 100 Mg Capsule PO 12/06/23 15:14 DAILY OFE Piperacillin Sod/Tazobactam 50 mls @ 100 mls/hr 11/06/23 14:00 11/06/23 13:09 Sod 2.25 gm/ Sodium Chloride IV 11/16/23 13:59 100 mls/hr Q12H OFE Administration Lactated Ringer's 1,000 mls @ 100 mls/hr 11/06/23 15:15 Lactated Ringer's 1000 Ml Bag IV 12/06/23 15:14 .Q10H OFE Nicotine 21 mg 11/06/23 15:02 Nicotine 21mg/24hr Patch TD 12/06/23 15:01 DAILYP PRN Nicotine Cravings Ondansetron HCl 4 mg 11/06/23 15:02 Ondansetron 4mg/2ml Vial IV 12/06/23 15:01 Q8HP PRN Nausea Pantoprazole Sodium 40 mg 11/06/23 15:15 Pantoprazole 40mg Tablet PO 12/06/23 15:14 DAILY OFE Sodium Chloride 10 ml 11/06/23 15:02 Sodium Chloride 0.9% 10ml Flush Syringe IV 12/06/23 15:01 NEEDED PRN Maintain IV Site Discontinued Medications Generic Name Dose Route Start Last Admin Trade Name Freq PRN Reason Stop Dose Admin Aspirin 325 mg 11/06/23 10:31 11/06/23 10:57 Aspirin 325mg Tablet PO 11/06/23 10:32 325 mg ONCE ONE Administration Fentanyl Citrate 25 mcg 11/06/23 13:04 11/06/23 13:16 Fentanyl 100mcg/2ml Vial IV 11/06/23 13:05 25 mcg ONCE ONE Administration Magnesium Sulfate 2 gm in 50 mls @ 50 mls/hr 11/06/23 11:23 11/06/23 12:11 Magnesium Sulfate 2gm/50ml Premix IV 11/06/23 12:22 50 mls/hr ONCE ONE Administration Thiamine HCl 100 mg/ Sodium 51 mls @ 204 mls/hr 11/06/23 12:15 11/06/23 12:10 Chloride IV 11/06/23 12:29 204 mls/hr ONCE ONE Administration Vancomycin HCl 1,000 mg/ 250 mls @ 125 mls/hr 11/06/23 12:30 11/06/23 14:01 Sodium Chloride IV 11/06/23 14:29 125 mls/hr ONCE ONE Administration Lactated Ringer's 1,000 mls @ 999 mls/hr 11/06/23 13:03 11/06/23 13:09 Lactated Ringer's 1000 Ml Bag IV 11/06/23 14:03 999 mls/hr .Q1H1M ONE Administration Magnesium Sulfate 2 gm in 50 mls @ 50 mls/hr 11/06/23 13:54 11/06/23 14:09 Magnesium Sulfate 2gm/50ml Premix IV 11/06/23 14:53 50 mls/hr ONCE ONE Administration Lactated Ringer's 1,370 mls @ 685 mls/hr 11/06/23 11:30 11/06/23 12:00 Lactated Ringer's 1000 Ml Bag 30 ml/kg infuse over 2 hr (1370 ml) 11/06/23 13:29 685 mls/hr IV Administration .Q2H ONE Iopamidol 100 ml 11/06/23 12:59 11/06/23 13:00 Iopamidol-370 (76%);100ml Bottle IV 11/06/23 13:00 100 ml ONCE ONE Administration Sodium Chloride 50 ml 11/06/23 12:59 11/06/23 13:00 0.9 % Sodium Chloride 50 Ml Vial IV 11/06/23 13:00 50 ml ONCE ONE Administration Sodium Chloride 10 ml 11/06/23 12:59 11/06/23 13:00 Sodium Chloride 0.9% 10ml Syr (Rad Only) IV 11/06/23 13:00 10 ml ONCE ONE Administration ORDERS Category Date Time Status Type and Screen Stat BBK 11/06/23 10:[address] angio abdomen pelvis Stat Cat Scan 11/06/23 12:[address] head/brain wo con Stat Cat Scan 11/06/23 10:50 Completed CTA Chest [CT angio chest PE protocol] Stat Cat Scan 11/06/23 12:40 Completed POCUS Point of Care (ER Only) Stat Exams 11/06/23 10:19 Completed XR chest portable Stat Exams 11/06/23 10:48 Completed Acetone, Serum (Rapid) Stat Lab 11/06/23 10:50 Completed CBC w/Auto Diff [Complete Blood Count Auto Diff] Stat Lab 11/06/23 10:50 Completed CK [Creatine Kinase] Stat Lab 11/06/23 10:50 Completed CMP [Comprehensive Metabolic Panel] Stat Lab 11/06/23 10:50 Completed Drug Screen,Urine Stat Lab 11/06/23 12:15 Completed Ethanol [Ethyl Alcohol] Stat Lab 11/06/23 10:50 Completed Free T4 (Free Thyroxine) Stat Lab 11/06/23 10:50 Completed Lactate Venous Stat Lab 11/06/23 11:54 Ordered Lactic Acid Stat Lab 11/06/23 11:40 Completed Lipase Stat Lab 11/06/23 10:50 Completed MAG [Magnesium] Stat Lab 11/06/23 10:50 Completed PHOS [Phosphorous] Stat Lab 11/06/23 10:50 Completed PT INR [Prothrombin Time INR] Stat Lab 11/06/23 10:50 Completed Salicylate Stat Lab 11/06/23 10:50 Completed TSH [Thyroid Stimulating Hormone] Stat Lab 11/06/23 10:50 Completed Thiamine level [Vitamin B1] Stat Lab 11/06/23 11:58 Received Troponin I Q2H Lab 11/06/23 10:50 Completed Troponin I Q2H Lab 11/06/23 13:55 Completed Troponin I Q2H Lab 11/06/23 16:03 Received Urinalysis and Microscopic Stat Lab 11/06/23 12:15 Completed Blood Culture Stat Micro 11/06/23 11:48 Received VBG [Venous Blood Gas] Stat RT 11/06/23 10:33 Completed ECG initial [place] Routine Y 11/06/23 10:22 Completed Medical Decision Narrative: Patient with history and exam per above presenting for evaluation of altered mental status, nausea, vomiting Diagnoses considered include electrolyte abnormality including hyponatremia, hypocalcemia, myxedema coma, thyroid storm, encephalopathy including hepatic, hypertensive, systemic infection, overdose, hypoxia, mesenteric ischemia, ACS, hypovolemia, septic shock, intracranial hemorrhage, overdose, CVA ED workup included: CBC, CMP, EKG, [id number] blood sugar, chest x-ray, type and screen, TSH, free T4, mag, Phos, lipase, CK, ethyl alcohol level, acetone level, salicylate level, acetaminophen level, troponins x 2, blood cultures x 2, lactate, VBG, urinalysis, UDS, head CT, chest x-ray, CTA chest, abdomen, pelvis Labs were independently interpreted by me, significant for profound hypomagnesemia, metabolic acidosis, lipase 391, initial troponin 0.07 (of note, case discussed upon arrival with latex fashions designer Dr. Carter given EMS concerns for ischemic changes, patient does not meet STEMI criteria at this time, initial elevated troponin thought to be most consistent at this time with demand ischemia), and DONNIE on CKD with creatinine 3.50, estimated GFR 13 Upon speaking further with patient, power of branch account manager, and chart review, it appears patient has had similar symptoms in the past for which she was tr ansferred to outside hospital with concern for mesenteric ischemia. Although patient has acute kidney injury and poor GFR at this time, in the setting of aggressive fluid resuscitation, as well as the concern for emergent surgical pathology, especially combined with anion gap metabolic acidosis, elevated lactate, and diffuse abdominal pain, after interactive discussion with patient, power of branch account manager, as well as my clinical impression at this time, it is thought that the diagnostic benefits outweigh the risks of contrast-induced nephropathy. Both patient, power of branch account manager were able to express an understanding of these risks and my clinical impression and reasoning and are in agreement with this plan. At the time this conversation was held, patient had been fluid resuscitated and was alert and interactive, she clinically had capacity to make this decision. Imaging was independently visualized and interpreted by me, significant for no evidence of acute mesenteric ischemia, no intracranial hemorrhage, no acute surgical pathology. Please refer to radiology report for full details. Patient was treated with IV fluids, IV magnesium, thiamine, vancomycin, Zosyn, with improvement of symptoms and mentation as previously mentioned My clinical impression at this time is most consistent with septic shock. I discussed case with hospitalist who agreed to admit patient. Patient was a dmitted to the hospital. Critical Care Critical Care Time Critical Care Time: No
--- NOTE | 2023-11-06 10:47 | PC.NURSE ---
LAB AT BEDSIDE
--- NOTE | 2023-11-06 10:48 | XR_ITS ---
FINAL REPORT CLINICAL HISTORY: nausea, vomiting, soa COMPARISON: 03/17/2023 FINDINGS: A single portable view of the chest was obtained. A left subclavian pacemaker is present. The heart size and pulmonary vascularity are within normal limits. The mediastinum is within normal limits. No acute pulmonary abnormality is identified. The bony thorax is intact. IMPRESSION: No active cardiopulmonary disease. Reviewed, Interpreted and Dictated by Damian Valles III, MD Transcribed by Norma Neal Authenticated and . [facility]
--- NOTE | 2023-11-06 10:50 | CT_ITS ---
FINAL REPORT CLINICAL HISTORY: ams/n/v COMPARISON: 03/20/2021 FINDINGS: Axial images of the head were obtained without contrast. Coronal and sagittal reformatted images were also obtained. This study was performed with techniques to keep radiation doses as low as reasonably achievable (ALARA). Individualized dose reduction techniques using automated exposure control or adjustment of mA and/or kV according to the patient's size were employed. There is motion on many sequences which limits overall image quality. There is generalized age-appropriate atrophy. Periventricular low-attenuation areas are seen consistent with mild chronic ischemic changes. There is a chronic right periventricular lacunar infarct once again identified, unchanged since the prior head CT of March 2021. There is no evidence of intracranial hemorrhage or mass. There is no evidence of acute infarct. There is no evidence of shift of the midline structures. No skull abnormality is seen on the bone window images. IMPRESSION: Atrophy and mild periventricular chronic ischemic changes. Chronic right periventricular lacunar infarct, stable since March 2021. No acute intracranial abnormality identified. Reviewed, Interpreted and Dictated by Damian Valles III, MD Transcribed by Norma Neal Authenticated and [facility]
[2023-11-06] MEDS: ASPIRIN 325MG TABLET 325 MG PO (10:57)
--- NOTE | 2023-11-06 11:05 | PC.NURSE ---
Pt gone to RAD via stretcher
[2023-11-06 11:11] LABS: Basophils # 0.1 K/mm3 (0-0.2); Basophils % 0.6 % (0.1-2.0); Eosinophils # 0.1 K/mm3 (0.0-0.4); Eosinophils % 0.7 % (0.1-12.0); Hemoglobin 15.9 g/dL (12.2-16.2); Lymphocytes # 1.9 K/mm3 (0.7-4.5); Lymphocytes % 12.9 % (10-50); Mean Corpuscular HGB Conc 34.6 g/dL (31.8-35.4); Mean Corpuscular Hemoglobin 30.6 pg (27.0-31.2); Mean Corpuscular Volume 88.4 fl (81-99); Mean Platelet Volume 11.2 fl (7.4-10.4); Monocytes # 0.3 K/mm3 (0.1-1.0); Monocytes % 2.1 % (1.7-9.3); Neutrophils # 12.4 K/mm3 (1.8-7.8); Neutrophils % 83.7 % (37.0-80.0); Platelet Count 224 K/mm3 (142-424); Red Blood Count 5.21 M/mm3 (4.20-5.40); Red Cell Distribution Width 13.8 % (11.5-17.5); White Blood Count 14.8 K/mm3 (4.8-10.8)
--- NOTE | 2023-11-06 11:15 | PC.NURSE ---
Pt returned from RAD
--- NOTE | 2023-11-06 11:16 | PC.NURSE ---
DR MORENO AT BEDSIDE
[2023-11-06 11:17] LABS: Chloride 97 mmol/L (98-107); Potassium 3.5 mmoL/L (3.5-5.1); Sodium 143 mmol/L (136-145)
--- NOTE | 2023-11-06 11:17 | PC.NURSE ---
RT notified of VBG order
[2023-11-06 11:19] LABS: Alanine Aminotransferase 41 U/L (12-78); Alkaline Phosphatase 101 U/L (38-126); Aspartate Amino Transferase 45 U/L (14-36); Bilirubin,Total 0.8 mg/dl (0.2-1.3); Blood Urea Nitrogen 52 mg/dl (7-17); Creatinine Clearance Estimated 11 mL/min (50-200); Estimated Glomerular Filt Rate 13 ml/min (>60); GFR (African American) 16 ML/MIN (>60)
[2023-11-06 11:20] LABS: Albumin Level 5.4 g/dl (3.5-5.0); Albumin/Globulin Ratio 1.2 (1.1-1.8); Anion Gap 33.5 mEq/L (5-15); Carbon Dioxide 16 mmol/L (22.0-30.0); Globulin 4.6 g/dL (1.3-3.2); Glucose 182 mg/dl (74-100); Lipase 391 U/L (23-300); Phosphorous 6.7 mg/dl (2.5-4.5)
[2023-11-06 11:21] LABS: Magnesium < 0.2 mg/dl (1.6-2.3)
[2023-11-06 11:23] LABS: INR 1.53 (0.9-1.1); Prothrombin Time 16.1 seconds (10.1-12.5)
[2023-11-06 11:25] LABS: VBG Base Excess -11.5 mmol/L (-2.4-2.3); VBG HCO3 15.3 mmol/L (23-30); VBG Oxygen Saturation 95.5 % (50-70); VBG PCO2 33.5 mmol/L (35-51); VBG PH 7.28 mmol/L (7.31-7.41); VBG PO2 84.2 mmol/L (28-40); VBG Total CO2 16.3 mmol/L (23-27)
[2023-11-06 11:32] LABS: Troponin I 0.07 ng/ml (0.00-0.034)
--- NOTE | 2023-11-06 11:40 | PC.NURSE ---
1140 ADDITIONAL IV PLACED. #20 RIGHT FA
[2023-11-06 11:44] LABS: Free T4 (Free Thyroxine) 2.48 ng/dl (0.78-2.19)
[2023-11-06 11:51] LABS: Thyroid Stimulating Hormone 6.68 uIU/mL (0.465-4.68)
--- NOTE | 2023-11-06 11:51 | PC.NURSE ---
Dr. Scherer at to speak with pt
[2023-11-06 11:52] LABS: Creatine Kinase 182 U/L (30-135)
[2023-11-06 11:53] LABS: Acetone, Serum (Rapid) None Detected (None Detect); Ethyl Alcohol < 10 mg/dl (0-10)
[2023-11-06] MEDS: LACTATED RINGERS 1000ML 1,370 ML 685 ML IV (12:00)
[2023-11-06 12:08] LABS: Lactic Acid 4.3 mmol/L (0.7-2.1)
--- NOTE | 2023-11-06 12:08 | PC.NURSE ---
lactic 4.3, aware
[2023-11-06] MEDS: THIAMINE HCL 100 MG in 0.9 % SODIUM CHLORIDE 50 ML 204 MG IV (12:10)
[2023-11-06] MEDS: MAGNESIUM SULFATE IN WATER 2 GM/50 ML PIGGYBACK IV ×2 (12:11→14:09)
[2023-11-06 12:22] LABS: Microscopic, Urine URINE MICROSCOPIC (MICROSCOPIC)
[2023-11-06 12:23] LABS: Appearance,Urine CLEAR (Clear); Bilirubin,Urine Negative (Negative); Blood, Urine Negative (Negative); Color,Urine YELLOW (Yellow); Glucose,Urine (UA) Negative (Negative); Ketones,Urine Negative (Negative); Leukocyte Esterase,Urine Negative (Negative); Nitrate,Urine Negative (Negative); Protein,Urine Negative (Negative); Urobilinogen,Urine 0.2 EU/dl (0.2)
[2023-11-06 12:27] LABS: Salicylate < 1.0 mg/dL (2.0-20.0)
[2023-11-06 12:36] LABS: Bacteria,Urine Trace /lpf; Squamous Epithelial Cell,Urine Occasional #/hpf (0-5)
--- NOTE | 2023-11-06 12:36 | PC.NURSE ---
pt resting comfortably, respirations even and unlabored. call light within reach. pt denies needs at this time
[2023-11-06 12:37] LABS: Amphetamine/Metha Screen,Urine Negative ng/ml (<1000); Barbiturates Screen,Urine Negative ng/ml (<200); Benzodiazepines Screen,Urine Negative ng/ml (<200); Cannabinoid Screen,Urine Positive ng/ml (<50); Cocaine Screen,Urine Negative ng/ml (<300)
[2023-11-06 12:38] LABS: Methadone Screen,Urine Negative ng/ml (<300); Opiate Screen,Urine Negative ng/ml (<300)
--- NOTE | 2023-11-06 12:39 | CT_ITS ---
FINAL REPORT TECHNIQUE: Pre-and postcontrast images of the abdomen and pelvis were performed by computed tomography. Extensive 3-D reconstruction images were performed. A CTA was performed. This study was performed with techniques to keep radiation doses as low as reasonably achievable (ALARA). Individualized dose reduction techniques using automated exposure control or adjustment of mA and/or kV according to the patient''s size were employed. CLINICAL HISTORY: metabolic acidosis, hx mesentaric ischemia COMPARISON: 05/29/2022 FINDINGS: ABDOMEN/PELVIS: Precontrast images demonstrate no evidence of nephrolithiasis. Posterior right renal cyst is stable. No adrenal masses are identified. The liver, spleen and pancreas are unremarkable. Brush catheter is identified. There is a moderate amount of stool in the rectum. Small presumed uterine calcification is stable. CTA: There is diffuse plaque of the abdominal aorta with mild stenoses of the infrarenal abdominal aorta. There is no evidence of aneurysm or dissection. There is moderate stenosis of the proximal SMA measuring 40-50%, stable. There is mild stenosis of the left renal artery measuring 30%, stable. The MARTINEZ is patent. There is moderate plaque of the iliac arteries. There is mild stenosis of the right common iliac artery measuring 30%. There is moderate stenosis of the proximal left external iliac artery measuring 50%. There is severe stenosis of the distal left external iliac artery. There is moderate stenosis of the right external iliac artery. 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 Other vascular disease as above. Reviewed, Interpreted and Dictated by Damian Valles III, MD Transcribed by Trina Del Valle Authenticated and [facility]
--- NOTE | 2023-11-06 12:40 | CT_ITS ---
FINAL REPORT CLINICAL HISTORY: n/v/soa, metaboic acidosis, sudden onset COMPARISON: 11/20/2016 FINDINGS: Thin section axial CT images of the chest were obtained with contrast. 3D reformatted images were also obtained. This study was performed with techniques to keep radiation doses as low as reasonably achievable (ALARA). Individualized dose reduction techniques using automated exposure control or adjustment of mA and/or kV according to the patient's size were employed. There is no evidence of pulmonary embolism. There is no evidence of thoracic aortic aneurysm or dissection. Left subclavian pacer is identified. There is no evidence of mediastinal or hilar mass or adenopathy. There are mild bibasilar opacities, may represent atelectasis or pneumonia. IMPRESSION: No evidence of pulmonary embolism. Bibasilar opacities, may represent atelectasis or pneumonia. Reviewed, Interpreted and Dictated by Damian Valles III, MD Transcribed by Trina Del Valle Authenticated and [facility]
--- NOTE | 2023-11-06 12:41 | PC.NURSE ---
Pt gone to RAD via stretcher
[2023-11-06 12:47] LABS: Phencyclidine Screen,Urine Negative ng/ml (<25)
--- NOTE | 2023-11-06 12:54 | HMH.PHAINT1 ---
Pharmacy Intervention Comments: MEDICATION RECONCILIATION COMPLETED ON PATIENT USING EXTERNAL FILL HISTORY FROM PHARMACY. -MARGA LEE, [place]
[2023-11-06] MEDS: 0.9 % SODIUM CHLORIDE 50 ML VIAL IV (13:00)
[2023-11-06] MEDS: SODIUM CHLORIDE 0.9% 10ML SYR (RAD ONLY) 10 ML IV (13:00)
[2023-11-06] MEDS: IOPAMIDOL-370 (76%);100ML BOTTLE 100 ML IV (13:00)
--- NOTE | 2023-11-06 13:00 | PC.NURSE ---
Pt returned from RAD
--- NOTE | 2023-11-06 13:02 | PC.NURSE ---
Dr. Scherer at BS to update pt on results and POC
[2023-11-06] MEDS: PIPERACILLIN/TAZO 2.25 GM in 0.9 % SODIUM CHLORIDE 50 ML IV (13:09)
[2023-11-06] MEDS: LACTATED RINGERS 1000ML 1,000 ML 999 ML IV (13:09)
[2023-11-06] MEDS: FENTANYL 100MCG/2ML VIAL 25 MCG IV (13:16)
--- NOTE | 2023-11-06 13:45 | PC.NURSE ---
DR MORENO SPEAKING WITH HOSPITALIST
--- NOTE | 2023-11-06 13:54 | PC.NURSE ---
CARE MANAGEMENT NOTIFIED OF ADMISSION
[2023-11-06] MEDS: VANCOMYCIN HCL 1,000 MG in 0.9 % SODIUM CHLORIDE 250 ML 125 MG IV (14:01)
[2023-11-06 14:28] LABS: Troponin I 0.08 ng/ml (0.00-0.034)
--- NOTE | 2023-11-06 14:36 | PC.NURSE ---
REPORT CALLED TO MELIZA PERDUE
--- NOTE | 2023-11-06 14:48 | PC.NURSE ---
arrived by stretcher from ED
[2023-11-06 15:57] LABS: Reflex Lactic Add Lactic Reflex
[2023-11-06 16:26] LABS: Lactic Acid Follow Up (RFLX 1) 1.3 mmol/L (0.7-2.1)
[2023-11-06 16:38] LABS: Troponin I 0.12 ng/ml (0.00-0.034)
[2023-11-06] MEDS: LACTATED RINGERS 1000ML 1,000 ML 100 ML IV (16:56)
[2023-11-06] MEDS: DOCUSATE SODIUM 100 MG CAPSULE PO (16:56)
[2023-11-06] MEDS: PANTOPRAZOLE 40MG TABLET 40 MG PO ×2 (16:56→21:50)
--- NOTE | 2023-11-06 17:26 | EXP.HP ---
History of Present Illness *Admission Date: 11/06/23 *Reason for visit:: Nausea/Vomiting *History of present illness: Patient is a 67-year-old female who presents to the hospital due to nausea vomiting. According to the patient she has been feeling sick for past 1 week, she was recently taken off of her long-term opioid medications. She has past medical history of CAD, CKD, atrial fibrillation, hypertension hyperlipidemia, hepatitis C and chronic back pain for which she is on chronic opioids. She has not been able to hold down food due to recurrent nausea vomiting. [facility] Disclaimer: The information contained in this section may have been updated after the patient was seen, as this information can be updated by other users. Medical History Abnormal EKG Atypical angina Chest pain COPD (chronic obstructive pulmonary disease) Dizziness Edema Facial droop Fatigue HTN (hypertension) Near syncope ADIEL (obstructive sleep apnea) Sinus bradycardia Symptomatic bradycardia TIA (transient ischemic attack) Tobacco dependence syndrome Viral cardiomyopathy Surgical History Presence of cardiac pacemaker Family History (Updated 11/06/23 @ 15:57 by Loren Apodaca RN) Other No significant family history Social History (Updated 11/06/23 @ 15:57 by Loren Apodaca RN) Smoking Status: Former smoker tobacco type: cigarettes packs per day: 1 second hand exposure: Yes alcohol intake: never substance use type: denies use current occupational status: unemployed Travel in the last 8 weeks: None household members: family housing: house current occupational exposures/hazards: No caffeine: Yes Review of Systems Review of Systems Review of systems (narrative): as per HPI Meds Home Medications and Allergies Home Medications Medication Instructions Recorded Confirmed Type atorvastatin 20 mg tablet 20 mg PO HS Cholesterol #90 tabs 01/02/23 11/06/23 Rx escitalopram oxalate 20 mg tablet 20 mg PO DAILY MOOD #90 tabs 01/02/23 11/06/23 Rx omeprazole 20 mg capsule,delayed 20 mg PO DAILY Acid reflux #60 caps 08/26/23 11/06/23 Rx release oxycodone 10 mg tablet 10 mg PO QID MODERATE TO SEVERE 11/03/23 11/06/23 Rx PAIN #12 tabs albuterol sulfate 90 mcg/actuation 2 puff inhalation Q6HP PRN 11/06/23 11/06/23 History aerosol inhaler Shortness Of Breath apixaban 5 mg tablet (Eliquis) 5 mg PO BID Blood Thinner/Afib 11/06/23 11/06/23 History cariprazine 1.5 mg capsule 1.5 mg PO DAILY Mood 11/06/23 11/06/23 History (Vraylar) clonazepam 0.5 mg tablet 0.25 mg PO HS Anxiety 11/06/23 11/06/23 History clonazepam 0.5 mg tablet 0.5 mg PO DAILY Anxiety 11/06/23 11/06/23 History furosemide 40 mg tablet 40 mg PO DAILY Fluid 11/06/23 11/06/23 History gabapentin 800 mg tablet 800 mg PO TID Pain 11/06/23 11/06/23 History loratadine 10 mg tablet 10 mg PO DAILY Allergy Symptoms 11/06/23 11/06/23 History metoprolol succinate 25 mg 25 mg PO DAILY High Blood Pressure 11/06/23 11/06/23 History tablet,extended release 24 hr oxybutynin chloride 10 mg 10 mg PO DAILY Bladder 11/06/23 11/06/23 History tablet,extended release 24 hr sacubitril 24 mg-valsartan 26 mg 1 tab PO BID Heart Failure 11/06/23 11/06/23 History tablet (Entresto) spironolactone 100 mg tablet 100 mg PO DAILY Fluid 11/06/23 11/06/23 History New Prescriptions to Start Prescriptions: Allergies Allergy/AdvReac Type Severity Reaction Status Date / Time acetaminophen Allergy Unknown Unknown Verified 11/06/23 15:33 [From DARVOCET-N] allergy reaction codeine [CODEINE] Allergy Unknown Unknown Verified 11/06/23 15:33 allergy reaction propoxyphene Allergy Unknown Unknown Verified 11/06/23 15:33 [From DARVOCET-N] allergy reaction tomato AdvReac Mild Gastrointestinal Verified 11/06/23 15:33 Upset Exam Data for Last 24 hours Vital signs and Labs for Last 24 Hours: Temp Pulse Resp BP Pulse Ox O2 Del Method 98.1 F 62 16 91/52 L 97 Room Air 11/06/23 16:00 11/06/23 16:00 11/06/23 16:00 11/06/23 16:00 11/06/23 16:00 11/06/23 16:00 Laboratory Results - last 24 hr 11/06/23 10:33: VBG pH 7.28 L, VBG pCO2 33.5 L, VBG pO2 84.2 H, VBG HCO3 15.3 L, VBG Total CO2 16.3 L, VBG O2 Saturation 95.5 H, VBG Base Excess -11.5 L 11/06/23 10:50: WBC 14.8 H, RBC 5.21, Hgb 15.9, Hct 46.0, MCV 88.4, MCH 30.6, MCHC 34.6, RDW 13.8, Plt Count 224, MPV 11.2 H, Neut % (Auto) 83.7 H, Lymph % (Auto) 12.9, [place] % (Auto) 2.1, Eos % (Auto) 0.7, Baso % (Auto) 0.6, Neut # (Auto) 12.4 H, Lymph # (Auto) 1.9, [place] # (Auto) 0.3, Eos # (Auto) 0.1, Baso # (Auto) 0.1, PT 16.1 H, INR 1.53 H, Sodium 143, Potassium 3.5, Chloride 97 L, Carbon Dioxide 16 L, Anion Gap 33.5 H, BUN 52 H, Creatinine 3.50 H, Estimated Creat Clear 11, Estimated GFR 13 L*, Est GFR ( Amer) 16 L*, Glucose 182 H, Calcium 9.0, Phosphorus 6.7 H, Magnesium < 0.2 L, Total Bilirubin 0.8, AST 45 H, ALT 41, Alkaline Phosphatase 101, Total Creatine Kinase 182 H, Troponin I 0.07 H, Total Protein 10.0 H D, Albumin 5.4 H, Globulin 4.6 H, Albumin/Globulin Ratio 1.2, Lipase 391 H, TSH 6.68 H, Free T4 2.48 H, Salicylates < 1.0 L, Plasma/Serum Alcohol < 10, Acetone Level None detected, Blood Type O Negative, Antibody Screen Negative 11/06/23 11:40: Lactate 4.3 H 11/06/23 12:15: Urine Color Yellow, Urine Appearance Clear, Urine pH 6.0, Ur Specific [place] 1.020, Urine Protein Negative, Urine Glucose (UA) Negative, Urine Ketones Negative, Urine Blood Negative, Urine Nitrate Negative, Urine Bilirubin Negative, Urine Urobilinogen 0.2, Ur Leukocyte Esterase Negative, Urine RBC None, Urine WBC None, Ur Squamous Epith Cells Occasional, Urine Bacteria Trace, Urine Opiates Screen Negative, Urine Methadone Screen Negative, Ur Barbituates Screen Negative, Ur Phencyclidine Scrn Negative, Ur Amphetamines Screen Negative, U Benzodiazepines Scrn Negative, Urine Cocaine Screen Negative, U Marijuana (THC) Screen Positive H 11/06/23 13:55: Troponin I 0.08 H 11/06/23 16:03: Lactate 1.3, Troponin I 0.12 H I & O for Last 24 hours: Intake & Output 11/03/23 11/04/23 11/05/23 11/06/23 23:59 23:59 23:59 23:59 Weight 48.79 kg Constitutional Constitutional: no acute distress *Routine HEENT Exam Head: Present normocephalic Eye: Present EOMI and PERRL ENT: Present mucous membranes moist *Routine Neck Exam Neck: Present supple; Absent lymphadenopathy *Routine Respiratory Exam Respiratory: Present CTA bilaterally *Routine Cardiovascular Exam Cardiovascular: Present RRR *Routine Abdominal Exam Abdominal: Present soft and normoactive bowel sounds; Absent tenderness *Routine Rectal Exam Rectal:: deferred *Routine Genitalia Exam Genitalia:: deferred *Routine Extremities Exam Extremities: Absent cyanosis, clubbing or edema *Routine Skin Exam Skin: Present warm; Absent rash *Routine Neurological Exam Neurological: Present alert and oriented X3 Assessment and Plan *Assessment and plan (1) Sepsis: Status: Acute Category: Medical Code(s): A41.9 - Sepsis, unspecified organism (2) Neuropathy: Status: Acute Category: Medical Code(s): G62.9 - Polyneuropathy, unspecified (3) DONNIE (acute kidney injury): Status: Acute Category: Medical Code(s): N17.9 - Acute kidney failure, unspecified (4) Dehydration: Status: Acute Category: Medical Code(s): E86.0 - Dehydration (5) HTN (hypertension): Status: Chronic Qualifiers: Hypertension type: primary hypertension Qualified Code(s): I10 - Essential (primary) hypertension Category: Medical Code(s): I10 - Essential (primary) hypertension (6) Renal insufficiency: Status: Acute Category: Medical Code(s): N28.9 - Disorder of kidney and ureter, unspecified Plan Patient is a 67-year-old female who presents to the hospital due to nausea vomiting. According to the patient she has been feeling sick for past 1 week, she was recently taken off of her long-term opioid medications. She has past medical history of CAD, CKD, atrial fibrillation, hypertension hyperlipidemia, hepatitis C and chronic back pain for which she is on chronic opioids. She has not been able to hold down food due to recurrent nausea vomiting. Assessment Intractable nausea vomiting, cannot rule out opioid withdrawal Elevated troponin likely demand ischemia Acute kidney injury on CKD likely prerenal Lactic acidosis Bibasilar opacities concerning for pneumonia History of mesenteric stenosis Plan Start IV fluids Monitor on cardiac telemetry, monitor troponin Monitor lactic acidosis Start empirical antibiotics with vancomycin, cefepime, blood cultures, procalcitonin Resume home Neurontin, home opioid medications Patient denied using alcohol, hold off of CIWA assessment As needed Zofran DVT prophylaxis-resume home Eliquis Patient did report an episode of black-colored stool in the past few days, will check stool occult, if positive will hold Eliquis
[2023-11-06 18:22] LABS: Procalcitonin 0.069 ng/mL (0.0-2.0)
[2023-11-06] MEDS: CEFEPIME HCL 2 GM in 0.9 % SODIUM CHLORIDE 100 ML IV (18:48)
[2023-11-06] MEDS: OXYCODONE 5MG IMMEDIATE RELEASE TABLET 5 MG PO (18:48)
[2023-11-06] MEDS: VANCOMYCIN CONSULT REQUEST 1 EACH NOTAPPLIC (18:56)
[2023-11-06] MEDS: METRONIDAZ/SOD CHL 500 MG/100 ML PIGGYBACK 100 MG IV (19:30)
[2023-11-06] MEDS: APIXABAN 5MG TABLET 5 MG PO (21:50)
[2023-11-06] MEDS: OXYBUTYNIN 5MG TAB 5 MG PO (21:50)
[2023-11-06] MEDS: GABAPENTIN 800MG TABLET 800 MG PO (21:50)
[2023-11-06] MEDS: ATORVASTATIN 20MG TABLET 20 MG PO (21:50)
[2023-11-06] MEDS: SACUBITRIL/VALSARTAN 24-26MG TABLET 1 EACH PO (21:50)
[2023-11-06] MEDS: clonazePAM 0.5MG TABLET 0.25 MG PO (21:50)
[2023-11-06] MEDS: PATIENT'S OWN HOME MEDICATION (Oxycodone 10 mg tablet) 10 EACH PO (22:00)
[2023-11-07] VITALS: BP 103/40; PULSE 60; RESP 20; TEMP 36.6; O2SAT 97
[2023-11-07] MEDS: LACTATED RINGERS 1000ML 1,000 ML 100 ML IV ×2 (01:15→06:54)
[2023-11-07] MEDS: CEFEPIME HCL 2 GM in 0.9 % SODIUM CHLORIDE 100 ML IV (02:05)
[2023-11-07] MEDS: OXYCODONE 5MG IMMEDIATE RELEASE TABLET 5 MG PO (03:14)
[2023-11-07] MEDS: PIPERACILLIN/TAZO 2.25 GM in 0.9 % SODIUM CHLORIDE 50 ML IV (03:31)
[2023-11-07 04:00] VITALS: BP 103/45; PULSE 73; RESP 20; TEMP 36.6; O2SAT 95; BMI 21.7
[2023-11-07] MEDS: METRONIDAZ/SOD CHL 500 MG/100 ML PIGGYBACK 100 MG IV (06:55)
[2023-11-07 07:06] LABS: Basophils % 0.1 % (0.1-2.0); Eosinophils % 0.3 % (0.1-12.0); Hematocrit 29.9 % (37.0-47.0); Lymphocytes # 1.5 K/mm3 (0.7-4.5); Lymphocytes % 14.8 % (10-50); Mean Corpuscular HGB Conc 33.4 g/dL (31.8-35.4); Mean Corpuscular Hemoglobin 28.6 pg (27.0-31.2); Mean Corpuscular Volume 85.5 fl (81-99); Mean Platelet Volume 11.3 fl (7.4-10.4); Monocytes # 0.5 K/mm3 (0.1-1.0); Monocytes % 4.9 % (1.7-9.3); Neutrophils # 8.1 K/mm3 (1.8-7.8); Platelet Count 180 K/mm3 (142-424); Red Blood Count 3.49 M/mm3 (4.20-5.40); Red Cell Distribution Width 14.2 % (11.5-17.5); White Blood Count 10.1 K/mm3 (4.8-10.8)
[2023-11-07 07:13] LABS: Anion Gap 14.8 mEq/L (5-15); Blood Urea Nitrogen 41 mg/dl (7-17); Calcium 7.7 mg/dl (8.4-10.2); Carbon Dioxide 25 mmol/L (22.0-30.0); Chloride 101 mmol/L (98-107); Creatinine Clearance Estimated 22 mL/min (50-200); Estimated Glomerular Filt Rate 23 ml/min (>60); GFR (African American) 28 ML/MIN (>60); Glucose 133 mg/dl (74-100); Potassium 3.8 mmoL/L (3.5-5.1); Sodium 137 mmol/L (136-145)
[2023-11-07 07:27] VITALS: BP 89/48; PULSE 60; RESP 18; TEMP 36.6; O2SAT 95
--- NOTE | 2023-11-07 08:59 | P.CONPHA_ITS ---
Pharmacy Consult Date: 11/07/23 Time: 08:59 Referring provider: DR RODRIGUES Reason for Consult:: VANCOMYCIN DOSING CONSULT Allergies Allergy/AdvReac Type Severity Reaction Status Date / Time acetaminophen Allergy Unknown Unknown Verified 11/06/23 15:33 [From DARVOCET-N] allergy reaction codeine [CODEINE] Allergy Unknown Unknown Verified 11/06/23 15:33 allergy reaction propoxyphene Allergy Unknown Unknown Verified 11/06/23 15:33 [From DARVOCET-N] allergy reaction tomato AdvReac Mild Gastrointestinal Verified 11/06/23 15:33 Upset Home Medications Medication Instructions Recorded Confirmed Type atorvastatin 20 mg tablet 20 mg PO HS Cholesterol #90 tabs 01/02/23 11/06/23 Rx escitalopram oxalate 20 mg tablet 20 mg PO DAILY MOOD #90 tabs 01/02/23 11/06/23 Rx omeprazole 20 mg capsule,delayed 20 mg PO DAILY Acid reflux #60 caps 08/26/23 11/06/23 Rx release oxycodone 10 mg tablet 10 mg PO QID MODERATE TO SEVERE 11/03/23 11/06/23 Rx PAIN #12 tabs albuterol sulfate 90 mcg/actuation 2 puff inhalation Q6HP PRN 11/06/23 11/06/23 History aerosol inhaler Shortness Of Breath apixaban 5 mg tablet (Eliquis) 5 mg PO BID Blood Thinner/Afib 11/06/23 11/06/23 History cariprazine 1.5 mg capsule 1.5 mg PO DAILY Mood 11/06/23 11/06/23 History (Vraylar) clonazepam 0.5 mg tablet 0.25 mg PO HS Anxiety 11/06/23 11/06/23 History clonazepam 0.5 mg tablet 0.5 mg PO DAILY Anxiety 11/06/23 11/06/23 History furosemide 40 mg tablet 40 mg PO DAILY Fluid 11/06/23 11/06/23 History gabapentin 800 mg tablet 800 mg PO TID Pain 11/06/23 11/06/23 History loratadine 10 mg tablet 10 mg PO DAILY Allergy Symptoms 11/06/23 11/06/23 History metoprolol succinate 25 mg 25 mg PO DAILY High Blood Pressure 11/06/23 11/06/23 History tablet,extended release 24 hr oxybutynin chloride 10 mg 10 mg PO DAILY Bladder 11/06/23 11/06/23 History tablet,extended release 24 hr sacubitril 24 mg-valsartan 26 mg 1 tab PO BID Heart Failure 11/06/23 11/06/23 History tablet (Entresto) spironolactone 100 mg tablet 100 mg PO DAILY Fluid 11/06/23 11/06/23 History New Prescriptions to Start Prescriptions: Height: 1.57 m Weight: 53.524 kg Laboratory Results:: Laboratory Results - last 24 hr 11/06/23 10:33: VBG pH 7.28 L, VBG pCO2 33.5 L, VBG pO2 84.2 H, VBG HCO3 15.3 L, VBG Total CO2 16.3 L, VBG O2 Saturation 95.5 H, VBG Base Excess -11.5 L 11/06/23 10:50: WBC 14.8 H, RBC 5.21, Hgb 15.9, Hct 46.0, MCV 88.4, MCH 30.6, MCHC 34.6, RDW 13.8, Plt Count 224, MPV 11.2 H, Neut % (Auto) 83.7 H, Lymph % (Auto) 12.9, [place] % (Auto) 2.1, Eos % (Auto) 0.7, Baso % (Auto) 0.6, Neut # (Auto) 12.4 H, Lymph # (Auto) 1.9, [place] # (Auto) 0.3, Eos # (Auto) 0.1, Baso # (Auto) 0.1, PT 16.1 H, INR 1.53 H, Sodium 143, Potassium 3.5, Chloride 97 L, Carbon Dioxide 16 L, Anion Gap 33.5 H, BUN 52 H, Creatinine 3.50 H, Estimated Creat Clear 11, Estimated GFR 13 L*, Est GFR ( Amer) 16 L*, Glucose 182 H , Calcium 9.0, Phosphorus 6.7 H, Magnesium < 0.2 L, Total Bilirubin 0.8, AST 45 H, ALT 41, Alkaline Phosphatase 101, Total Creatine Kinase 182 H, Troponin I 0.07 H, Total Protein 10.0 H D, Albumin 5.4 H, Globulin 4.6 H, Albumin/Globulin Ratio 1.2, Lipase 391 H, TSH 6.68 H, Free T4 2.48 H, Salicylates < 1.0 L, Plasma/Serum Alcohol < 10, Acetone Level None detected, Blood Type O Negative, Antibody Screen Negative 11/06/23 11:40: Lactate 4.3 H 11/06/23 12:15: Urine Color Yellow, Urine Appearance Clear, Urine pH 6.0, Ur Specific [place] 1.020, Urine Protein Negative, Urine Glucose (UA) Negative, Urine Ketones Negative, Urine Blood Negative, Urine Nitrate Negative, Urine Bilirubin Negative, Urine Urobilinogen 0.2, Ur Leukocyte Esterase Negative, Urine RBC None, Urine WBC None, Ur Squamous Epith Cells Occasional, Urine Bacte chucho Trace, Urine Opiates Screen Negative, Urine Methadone Screen Negative, Ur Barbituates Screen Negative, Ur Phencyclidine Scrn Negative, Ur Amphetamines Screen Negative, U Benzodiazepines Scrn Negative, Urine Cocaine Screen Negative, U Marijuana (THC) Screen Positive H 11/06/23 13:55: Troponin I 0.08 H 11/06/23 16:03: Lactate 1.3, Troponin I 0.12 H, Procalcitonin 0.069 11/07/23 06:31: WBC 10.1 D, RBC 3.49 L D, Hgb 10.0 L D, Hct 29.9 L, MCV 85.5, MCH 28.6, MCHC 33.4, RDW 14.2, Plt Count 180, MPV 11.3 H, Neut % (Auto) 80.0, Lymph % (Auto) 14.8, [place] % (Auto) 4.9, Eos % (Auto) 0.3, Baso % (Auto) 0.1, Neut # (Auto) 8.1 H, Lymph # (Auto) 1.5, [place] # (Auto) 0.5, Eos # (Auto) 0.0, Baso # (Auto) 0.0, Sodium 137, Potassium 3.8, Chloride 101, Carbon Dioxide 25, Anion Gap 14.8, BUN 41 H, Creatinine 2.10 H D, Estimated Creat Clear 22, Estimated GFR 23 L, Est GFR ( Amer) 28 L D, Glucose 133 H D, Calcium 7.7 L Medical History: Medical History (Updated 11/06/23 @ 14:48 by Linsey Bustos RN) Abnormal EKG Atypical angina Chest pain COPD (chronic obstructive pulmonary disease) Dizziness Edema Facial droop Fatigue HTN (hypertension) Near syncope ADIEL (obstructive sleep apnea) Sinus bradycardia Symptomatic bradycardia TIA (transient ischemic attack) Tobacco dependence syndrome Viral cardiomyopathy Assessment and Plan Assessment and plan all Dx Assessment and Plan for all problems:: Pharmacokinetic dosing service Objective: Age: 67 yo Serum creatinine: 2.1 mg/dL Height: 61.8 Inches Weight (kg): 53.524 Diagnosis: SEPSIS Assessment: IBW (kg): 49.64 Dosing wt(kg): 53.524 Estimated Creatinine clearance (ml/min): 20.1 CRCL method: Cockcroft and Gault using ibw(default). Drug selected: Vancomycin Loading dose (mg): 1000 MG Vd (liters): 37.5 (factor used: 0.7 L/kg) Phan (hr-1): 0.021 Half life (hrs): 33.01 CLvanco=?? 0.788 L/hr Recommended dose: 750 mg Interval: 48 hrs Infusion time (hrs): 2.0 Predicted peak (mcg/mL): 30.8 Predicted trough (mcg/mL): 11.72 Total body weight is being used for vancomycin dosing. Recommendations: Give Vancomycin 750 mg q 48 hrs with an expected Cpeak of 30.8 mcg/ml and an expected Ctrough of 11.72 mcg/ml AUC 0-24 /NINA Data: NINA 0.5 mcg/mL:?? AUC/NINA:? 951.8 NINA 1.0 mcg/mL:?? AUC/NINA:? 475.9 --------- NINA 1.5 mcg/mL:?? AUC/NINA:? 317.3 NINA 2.0 mcg/mL:?? AUC/NINA:? 237.9 Thank you for the consult
[2023-11-07] MEDS: APIXABAN 5MG TABLET 2.5 MG PO (09:14)
[2023-11-07] MEDS: OXYCODONE 5MG IMMEDIATE RELEASE TABLET 10 MG PO (09:14)
[2023-11-07] MEDS: GABAPENTIN 300MG CAPSULE 300 MG PO (09:14)
[2023-11-07] MEDS: SPIRONOLACTONE 25MG TABLET 100 MG PO (09:14)
[2023-11-07] MEDS: SACUBITRIL/VALSARTAN 24-26MG TABLET 1 EACH PO (09:15)
[2023-11-07] MEDS: CITALOPRAM 40MG TABLET 40 MG PO (09:15)
[2023-11-07] MEDS: OXYBUTYNIN 5MG TAB 5 MG PO (09:15)
[2023-11-07] MEDS: LACTATED RINGERS 1000ML 1,000 ML 999 ML IV (09:15)
[2023-11-07] MEDS: PANTOPRAZOLE 40MG TABLET 40 MG PO (09:15)
[2023-11-07] MEDS: LORATADINE 10MG TABLET 10 MG PO (09:15)
[2023-11-07] MEDS: clonazePAM 0.5MG TABLET 0.5 MG PO (09:16)
[2023-11-07] MEDS: DOCUSATE SODIUM 100 MG CAPSULE PO (09:24)
[2023-11-07 11:11] VITALS: BP 106/50; PULSE 71; RESP 18; TEMP 36.8; O2SAT 96
--- NOTE | 2023-11-07 11:40 | EXP.DC.SUM ---
General Admission date:: 11/06/23 Discharge date: 11/07/23 HPI HPI HPI: Patient is a 67-year-old female who presents to the hospital due to nausea vomiting. According to the patient she has been feeling sick for past 1 week, she was recently taken off of her long-term opioid medications. She has past medical history of CAD, CKD, atrial fibrillation, hypertension hyperlipidemia, hepatitis C and chronic back pain for which she is on chronic opioids. She has not been able to hold down food due to recurrent nausea vomiting. Hospital Course Hospital Course Hospital Course: Patient was seen and evaluated at the bedside on the day of discharge. Patient is stable for discharge. Patient wishes to be discharged. All patient questions were answered and patient was given time to ask questions. Patient was discharged in stable condition. Patient understands that she can return to ER in case of any sudden changes in health. Total time spent on DC - 38 mins Patient is a 67-year-old female who presents to the hospital due to nausea vomiting. According to the patient she has been feeling sick for past 1 week, she was recently taken off of her long-term opioid medications. She has past medical history of CAD, CKD, atrial fibrillation, hypertension hyperlipidemia, hepatitis C and chronic back pain for which she is on chronic opioids. She has not been able to hold down food due to recurrent nausea vomiting. Assessment Intractable nausea vomiting, cannot rule out opioid withdrawal Elevated troponin likely demand ischemia Acute kidney injury on CKD likely prerenal Lactic acidosis Bibasilar opacities concerning for pneumonia History of mesenteric stenosis ok to continue eleiquis, no visble GI bleed feels well N/V resolved and wishes to be discharged dc on cefuroxime for PNA Exam Data for Last 24 hours Vital signs and Labs for Last 24 Hours: Temp Pulse Resp BP Pulse Ox O2 Del Method 98.2 F 71 18 106/50 L 96 Room Air 11/07/23 11:11 11/07/23 11:11 11/07/23 11:11 11/07/23 11:11 11/07/23 11:11 11/07/23 11:11 Laboratory Results - last 24 hr 11/06/23 10:50: Total Creatine Kinase 182 H, TSH 6.68 H, Free T4 2.48 H, Salicylates < 1.0 L, Plasma/Serum Alcohol < 10, Acetone Level None detected, Blood Type O Negative, Antibody Screen Negative 11/06/23 11:40: Lactate 4.3 H 11/06/23 12:15: Urine Color Yellow, Urine Appearance Clear, Urine pH 6.0, Ur Specific [place] 1.020, Urine Protein Negative, Urine Glucose (UA) Negative, Urine Ketones Negative, Urine Blood Negative, Urine Nitrate Negative, Urine Bilirubin Negative, Urine Urobilinogen 0.2, Ur Leukocyte Esterase Negative, Urine RBC None, Urine WBC None, Ur Squamous Epith Cells Occasional, Urine Bacteria Trace, Urine Opiates Screen Negative, Urine Methadone Screen Negative, Ur Barbituates Screen Negative, Ur Phencyclidine Scrn Negative, Ur Amphetamines Screen Negative, U Benzodiazepines Scrn Negative, Urine Cocaine Screen Negative, U Marijuana (THC) Screen Positive H 11/06/23 13:55: Troponin I 0.08 H 11/06/23 16:03: Lactate 1.3, Troponin I 0.12 H, Procalcitonin 0.069 11/07/23 06:31: WBC 10.1 D, RBC 3.49 L D, Hgb 10.0 L D, Hct 29.9 L, MCV 85.5, MCH 28.6, MCHC 33.4, RDW 14.2, Plt Count 180, MPV 11.3 H, Neut % (Auto) 80.0, Lymph % (Auto) 14.8, Mineral % (Auto) 4.9, Eos % (Auto) 0.3, Baso % (Auto) 0.1, Neut # (Auto) 8.1 H, Lymph # (Auto) 1.5, Mineral # (Auto) 0.5, Eos # (Auto) 0.0, Baso # (Auto) 0.0, Sodium 137, Potassium 3.8, Chloride 101, Carbon Dioxide 25, Anion Gap 14.8, BUN 41 H, Creatinine 2.10 H D, Estimated Creat Clear 22, Estimated GFR 23 L, Est GFR ( Amer) 28 L D, Glucose 133 H D, Calcium 7.7 L I & O for Last 24 hours: Intake & Output 11/04/23 11/05/23 11/06/23 11/07/23 23:59 23:59 23:59 23:59 Intake Total 600 / 840 450 / 450 Output Total 0 / 900 1650 / 1650 Balance 600 / -60 -1200 / -1200 Weight 48.79 kg 53.524 kg Constitutional Constitutional: no acute distress *Routine HEENT Exam Head: Present normocephalic Eye: Present EOMI and PERRL ENT: Present mucous membranes moist *Routine Neck Exam Neck: Present supple; Absent lymphadenopathy *Routine Respiratory Exam Respiratory: Present CTA bilaterally *Routine Cardiovascular Exam Cardiovascular: Present RRR *Routine Abdominal Exam Abdominal: Present soft and normoactive bowel sounds; Absent tenderness *Routine Extremities Exam Extremities: Absent cyanosis, clubbing or edema *Routine Skin Exam Skin: Present warm; Absent rash *Routine Neurological Exam Neurological: Present alert and oriented X3 Results Data Completed and Pending Labs on day of discharge: Labs from last 24 hours 11/07/23 11/06/23 11/06/23 06:31 16:03 13:55 WBC 10.1 D RBC 3.49 L D Hgb 10.0 L D Hct 29.9 L MCV 85.5 MCH 28.6 MCHC 33.4 RDW 14.2 Plt Count 180 MPV 11.3 H Neut % (Auto) 80.0 Lymph % (Auto) 14.8 Mineral % (Auto) 4.9 Eos % (Auto) 0.3 Baso % (Auto) 0.1 Neut # (Auto) 8.1 H Lymph # (Auto) 1.5 Mineral # (Auto) 0.5 Eos # (Auto) 0.0 Baso # (Auto) 0.0 Sodium 137 Potassium 3.8 Chloride 101 Carbon Dioxide 25 Anion Gap 14.8 BUN 41 H Creatinine 2.10 H D Estimated Creat Clear 22 Estimated GFR 23 L Est GFR ( Amer) 28 L D Glucose 133 H D Lactate 1.3 Calcium 7.7 L Total Creatine Kinase Troponin I 0.12 H 0.08 H Procalcitonin 0.069 TSH Free T4 Urine Color Urine Appearance Urine pH Ur Specific [place] Urine Protein Urine Glucose (UA) Urine Ketones Urine Blood Urine Nitrate Urine Bilirubin Urine Urobilinogen Ur Leukocyte Esterase Urine RBC Urine WBC Ur Squamous Epith Cells Urine Bacteria Salicylates Urine Opiates Screen Urine Methadone Screen Ur Barbituates Screen Ur Phencyclidine Scrn Ur Amphetamines Screen U Benzodiazepines Scrn Urine Cocaine Screen U Marijuana (THC) Screen Plasma/Serum Alcohol Acetone Level Blood Type Antibody Screen 11/06/23 11/06/23 11/06/23 12:15 11:40 10:50 WBC RBC Hgb Hct MCV MCH MCHC RDW Plt Count MPV Neut % (Auto) Lymph % (Auto) Mineral % (Auto) Eos % (Auto) Baso % (Auto) Neut # (Auto) Lymph # (Auto) Mineral # (Auto) Eos # (Auto) Baso # (Auto) Sodium Potassium Chloride Carbon Dioxide Anion Gap BUN Creatinine Estimated Creat Clear Estimated GFR Est GFR ( Amer) Glucose Lactate 4.3 H Calcium Total Creatine Kinase 182 H Troponin I Procalcitonin TSH 6.68 H Free T4 2.48 H Urine Color Yellow Urine Appearance Clear Urine pH 6.0 Ur Specific [place] 1.020 Urine Protein Negative Urine Glucose (UA) Negative Urine Ketones Negative Urine Blood Negative Urine Nitrate Negative Urine Bilirubin Negative Urine Urobilinogen 0.2 Ur Leukocyte Esterase Negative Urine RBC None Urine WBC None Ur Squamous Epith Cells Occasional Urine Bacteria Trace Salicylates < 1.0 L Urine Opiates Screen Negative Urine Methadone Screen Negative Ur Barbituates Screen Negative Ur Phencyclidine Scrn Negative Ur Amphetamines Screen Negative U Benzodiazepines Scrn Negative Urine Cocaine Screen Negative U Marijuana (THC) Screen Positive H Plasma/Serum Alcohol < 10 Acetone Level None detected Blood Type O Negative Antibody Screen Negative DS: Diagnosis Discharge Diagnosis (1) Sepsis: Status: Acute Code(s): A41.9 - Sepsis, unspecified organism (2) Neuropathy: Status: Acute Code(s): G62.9 - Polyneuropathy, unspecified (3) DONNIE (acute kidney injury): Status: Acute Code(s): N17.9 - Acute kidney failure, unspecified (4) Dehydration: Status: Acute Code(s): E86.0 - Dehydration (5) HTN (hypertension): Status: Chronic Code(s): I10 - Essential (primary) hypertension Qualifiers: Hypertension type: primary hypertension Qualified Code(s): I10 - Essential (primary) hypertension (6) Renal insufficiency: Status: Acute Code(s): N28.9 - Disorder of kidney and ureter, unspecified Meds Home Medications and Allergies Home Medications Medication Instructions Recorded Confirmed Type atorvastatin 20 mg tablet 20 mg PO HS Cholesterol #90 tabs 01/02/23 11/06/23 Rx escitalopram oxalate 20 mg tablet 20 mg PO DAILY MOOD #90 tabs 01/02/23 11/06/23 Rx omeprazole 20 mg capsule,delayed 20 mg PO DAILY Acid reflux #60 caps 08/26/23 11/06/23 Rx release oxycodone 10 mg tablet 10 mg PO QID MODERATE TO SEVERE 11/03/23 11/06/23 Rx PAIN #12 tabs albuterol sulfate 90 mcg/actuation 2 puff inhalation Q6HP PRN 11/06/23 11/06/23 History aerosol inhaler Shortness Of Breath apixaban 5 mg tablet (Eliquis) 5 mg PO BID Blood Thinner/Afib 11/06/23 11/06/23 History cariprazine 1.5 mg capsule 1.5 mg PO DAILY Mood 11/06/23 11/06/23 History (Vraylar) clonazepam 0.5 mg tablet 0.25 mg PO HS Anxiety 11/06/23 11/06/23 History clonazepam 0.5 mg tablet 0.5 mg PO DAILY Anxiety 11/06/23 11/06/23 History furosemide 40 mg tablet 40 mg PO DAILY Fluid 11/06/23 11/06/23 History gabapentin 800 mg tablet 800 mg PO TID Pain 11/06/23 11/06/23 History loratadine 10 mg tablet 10 mg PO DAILY Allergy Symptoms 11/06/23 11/06/23 History metoprolol succinate 25 mg 25 mg PO DAILY High Blood Pressure 11/06/23 11/06/23 History tablet,extended release 24 hr oxybutynin chloride 10 mg 10 mg PO DAILY Bladder 11/06/23 11/06/23 History tablet,extended release 24 hr sacubitril 24 mg-valsartan 26 mg 1 tab PO BID Heart Failure 11/06/23 11/06/23 History tablet (Entresto) spironolactone 100 mg tablet 100 mg PO DAILY Fluid 11/06/23 11/06/23 History cefuroxime axetil 500 mg tablet 500 mg PO BID 5 days #10 tabs 11/07/23 Rx New Prescriptions to Start Prescriptions: cefuroxime axetil Ca Vaughn Allergies Allergy/AdvReac Type Severity Reaction Status Date / Time acetaminophen Allergy Unknown Unknown Verified 11/06/23 15:33 [From DARVOCET-N] allergy reaction codeine [CODEINE] Allergy Unknown Unknown Verified 11/06/23 15:33 allergy reaction propoxyphene Allergy Unknown Unknown Verified 11/06/23 15:33 [From DARVOCET-N] allergy reaction tomato AdvReac Mild Gastrointestinal Verified 11/06/23 15:33 Upset Discharge Plan Disposition Patient Disposition: Home, Self-Care Condition: Good Discharge Order Discharge Orders: Discharge Order (Routine); Ordered 11/07/23 Ordered By: Ca Vaughn Follow up Plan Follow up with: Neto Woodson APRN [Nurse Practitioner] - Enter time for follow up (please call for follow up appointment within one week) Prescriptions/Medication Reconciliation: New cefuroxime axetil 500 mg tablet 500 mg PO BID 5 Days Qty: 10 0RF Continued omeprazole 20 mg capsule,delayed release(DR/EC) 20 mg PO DAILY Qty: 60 2RF atorvastatin 20 mg tablet 20 mg PO HS Qty: 90 3RF escitalopram oxalate 20 mg tablet 20 mg PO DAILY Qty: 90 3RF oxycodone 10 mg tablet 10 mg PO QID Qty: 12 0RF clonazepam 0.5 mg tablet 0.25 mg PO HS furosemide 40 mg tablet 40 mg PO DAILY oxybutynin chloride 10 mg tablet extended release 24hr 10 mg PO DAILY clonazepam 0.5 mg tablet 0.5 mg PO DAILY spironolactone 100 mg tablet 100 mg PO DAILY gabapentin 800 mg tablet 800 mg PO TID metoprolol succinate 25 mg tablet extended release 24 hr 25 mg PO DAILY albuterol sulfate 90 mcg/actuation HFA aerosol inhaler 2 puff inhalation Q6HP PRN (Reason: Shortness Of Breath) loratadine 10 mg tablet 10 mg PO DAILY Eliquis 5 mg tablet 5 mg PO BID Entresto 24-26 mg tablet 1 tab PO BID Vraylar 1.5 mg capsule 1.5 mg PO DAILY Problem Reconciliation Problems Reviewed?: Yes Patient Discharge Instructions ACTIVITY: Ambulate as tolerated DIET: advance to your usual diet Patient Instructions: Acute Kidney Injury, DI for Sepsis -- Adult Providers Primary Care Provider: Provider,Referral Admit Provider: Ca Vaughn Attending Provider: Ca Vaughn
--- NOTE | 2023-11-09 14:39 | CARE MANAGER ---
Called and spoke with patient regarding recent discharge. She states that she is in pain and has been unable to obtain pain medication since Dr. Gr left. No other complaints or concerns at time of call. She states that she has started new medication prescribed at discharge.
== END 2023-11-07 12:43 | disposition home or self-care (01) ==
LOC: ER 12:38 → 2ND 14:39
PROVIDERS: Admitting Provider Internal Medicine; Emergency Provider Emergency Medicine; Visit Provider Internal Medicine
DX: N17.9 Acute kidney failure, unspecified (principal); N18.9 Chronic kidney disease, unspecified; I25.10 Atherosclerotic heart disease of native coronary artery without angina pectoris; I48.91 Unspecified atrial fibrillation; E78.5 Hyperlipidemia, unspecified; Z79.01 Long term (current) use of anticoagulants; F17.210 Nicotine dependence, cigarettes, uncomplicated; J44.9 Chronic obstructive pulmonary disease, unspecified; E86.0 Dehydration; I12.9 Hypertensive chronic kidney disease with stage 1 through stage 4 chronic kidney disease, or unspecified chronic kidney disease; Z79.899 Other long term (current) drug therapy
CPT/HCPCS: 36415; 51702; 70450; 71045; 71275; 74174; 80048; 80053; 80307; 80329; 81001; 82009; 82550; 82803; 83605; 83690; 83735; 84100; 84145; 84425; 84439; 84443; 84484; 85025; 85610; 86850; 87040; 93005; 99285; G0378; J2543; J3370; J3475; Q9967

== ENCOUNTER 2023-11-11 22:06 | Outpatient (CLI) | payer MEDICARE, SELFPAY ==
[2023-11-11 19:14] LABS: Basophils # 0.1 K/mm3 (0-0.2); Basophils % 0.8 % (0.1-2.0); Eosinophils # 0.6 K/mm3 (0.0-0.4); Eosinophils % 6.5 % (0.1-12.0); Hematocrit 32.5 % (37.0-47.0); Hemoglobin 10.8 g/dL (12.2-16.2); Lymphocytes # 3.1 K/mm3 (0.7-4.5); Lymphocytes % 35.7 % (10-50); Mean Corpuscular HGB Conc 33.4 g/dL (31.8-35.4); Mean Corpuscular Hemoglobin 28.9 pg (27.0-31.2); Mean Corpuscular Volume 86.5 fl (81-99); Mean Platelet Volume 11.4 fl (7.4-10.4); Monocytes # 0.6 K/mm3 (0.1-1.0); Monocytes % 6.2 % (1.7-9.3); Neutrophils # 4.4 K/mm3 (1.8-7.8); Neutrophils % 50.7 % (37.0-80.0); Platelet Count 205 K/mm3 (142-424); Red Blood Count 3.75 M/mm3 (4.20-5.40); Red Cell Distribution Width 14.1 % (11.5-17.5); White Blood Count 8.8 K/mm3 (4.8-10.8)
== END 2023-11-11 23:59 ==
LOC: LAB.DROPOF 22:07
PROVIDERS: PCP Family Medicine; Visit Provider Family Medicine
DX: D64.9 Anemia, unspecified (principal)
CPT/HCPCS: 85025

== ENCOUNTER 2023-11-12 06:57 | Outpatient (CLI) | payer MEDICARE, SELFPAY ==
--- NOTE | 2023-11-12 | CA_ITS ---
APPROVED REPORT Exam: Pharmacologic Technologist: Rachell Lewis, Ht: 4 ft 11 in Wt: 108 lbs BSA: 1.42 m2 HR: 60 bpm BP: 94/36 mmHg Rhythm: Atrial paced rhythm Medical History Medications: Omeprazole,,,,, Gabapentin,,,,, Metoprolol Succinate,,,,, Duoneb,,,,, ClonAZEPAM,,,,, Albuterol,,,,, SpirOLACTONE,,,,, LoraTADINE,,,,, OxYCODONE,,,,, AtorvaASTATIN,,,,, EnTRESTO,,,,, Furosemide,,,,, Stress Test Details Test: LEXISCAN HR Resting HR: 60 bpm Max Heart Rate (APMHR): 152 bpm Max HR Achieved: 72 bpm Target HR (85% APMHR): 129 bpm % of APMHR: 47 Recovery HR: 69 bpm BP Resting BP: 94/36 mmHg Max BP: 117/48 mmHg Recovery BP: 113.0/46.0 mmHg ECG Resting ECG: Atrial paced rhythm Stress ECG: No significant ST changes Arrhythmia: Occasional PVCs Clinical Exercise duration: 04:00 min Highest Stage Achieved: Stress ECG Conclusion During lexiscan pt experinced SOA, chest tightness and light headed. Occasional PVC noted. No significant ST changes. Conclusion: Unremarkable lexiscan stress. Myoview images reported separately. Test Summary REST . . . . . . . Sitting REST 07:00 . . 60 . 94/ 36 . . Stage 1 01:00 . . 63 . . . . Stage 2 01:00 . . 71 . 94/ 45 . . Stage 3 01:00 . . 72 . 78/ 51 . . Stage 4 01:00 . . 70 . 109/ 46 . Stop exercise at 04:00 RECOVERY 01:00 . . 69 . 113/ 46 . . RECOVERY 02:00 . . 67 . 108/ 47 . . RECOVERY 03:00 . . 69 . 108/ 47 . . RECOVERY 04:00 . . 64 . 117/ 48 . . RECOVERY 04:12 . . 64 . 117/ 48 . . Electronically signed by : Keya Davey MD 11/16/2023 11:16:37
--- NOTE | 2023-11-12 07:04 | CA_ITS ---
APPROVED REPORT EXAM: Comprehensive 2D, Doppler, and color-flow Echocardiogram Science Specialist: Jennifer Dykes CRT Ht: 4 ft 11 in Wt: 108lbs BSA: 1.42 BP: 94/37 mmHg Indications: COPD, Shortness of Breath, Palpitations, Peripheral Edema, Hyperlipidemia, Hypertension/HDD, Pacer, TIA, ADIEL,Hx covid. Pt fell 4 days ago ribs very tender limited apical images 2D Dimensions LA Volume 33.90 mL LA Volume Index 23.40 mL/m2 (M/F) 16-34 M-Mode Dimensions RVDd 2.43 cm (0.9-2.6) LA Diam 3.45 cm (1.9-4.0) LVDd 4.14 cm (3.5-5.7) LVDs 2.75 cm (3.5-5.7) IVSd 1.93 cm (0.6-1.1) PWd 0.71 cm (0.6-1.1) EF (Teich) 62.70% FS 33.60% EDV (Teich) 75.90 mL TAPSE 1.57 (<1.7) ESV (Teich) 28.30 mL LV Diastology E Decel Time 197 (160-240 msec) E/A Ratio 0.64 MED A' 9.20 cm/s LAT A' 11.70 cm/s Aortic Valve AO Peak GR. 6.70 mmHg Mitral Valve MV A Velocity 71.0 (40-130 cm/s) E/A Ratio 0.64 Pulmonary Valve PV Peak Velocity 104.0 (50-150 cm/s) Tricuspid Valve TR P. Velocity 254.00 cm/s RAP Estimate 10.00 mmHg RVSP 35.70 mmHg Left Ventricle The left ventricle is normal size. The left ventricular systolic function is normal. The left ventricular ejection fraction is within the normal range. Proximal septal thickening is noted. There is normal LV segmental wall motion. The left ventricular diastolic function is normal. LVEF is 55%. Right Ventricle The right ventricle is difficult to visualize but grossly appears normal in size and function. Atria The left atrium size is normal. The right atrium size is normal. There is no Doppler evidence of interatrial shunt. Aortic Valve The aortic valve is mildly thickened. There is no aortic valvular stenosis. No aortic regurgitation is present. Mitral Valve The mitral valve is mildly thickened. No evidence of mitral valve stenosis. Mild mitral regurgitation. Tricuspid Valve The tricuspid valve leaflets are thin and pliable. Trace tricuspid regurgitation. There is insufficient TR jet to estimate RVSP. Pulmonic Valve The pulmonary valve is normal in structure. Trace pulmonic regurgitation. Great Vessels The aortic root is normal in size. The ascending aorta is not well-visualized. IVC is normal in size and collapses >50% with inspiration. Pericardium There is no pericardial effusion. Other Information Study Quality: Fair Conclusion Normal LV systolic function. The RV is difficult to visualize, but grossly appears normal in size and function. Mild MR. Electronically signed by : Keya Davey MD 11/16/2023 10:08:52
--- NOTE | 2023-11-12 07:14 | NM_ITS ---
APPROVED REPORT Exam: Nuclear Stress Test Indication: soa..fatigue Patient Location: Outpatient Stress Tech: Rachell RUIZ Tech:JEANNINE Sears RT(R)(N) Ht: 5 ft 2 in Wt: 111 lbs Bra Size: 34b HR: 60 bpm BP: 94/36 mmHg BSA: 1.49 m2 Rhythm: Atrial paced rhythm TID: 1.39 BMI: 20.2 History: soa..fatigue Procedure: Patient received 0.4 mg of intravenous Lexiscan, resting heart rate 60 bpm, resting blood pressure 94/36 mmHg, with Lexiscan maximum heart rate achieved was 72 bpm which is 85 % of the maximum predicted heart rate and blood pressure was 117/48 mmHg. With Lexiscan, patient denied any complaint of chest pain. Cardiac Stress and Resting SPECT Images: Cardiac Stress and Resting SPECT images were obtained using technetium 99m Myoview 30.9 mCi stress and 10.62 mCi at rest. Resting and stress imaging in supine and prone positions demonstrate no definite evidence of fixed or reversible perfusion defects. There is increased transient ischemic dilatation ratio (TID 1.39), suggestive of possible multivessel disease or balanced ischemia. Gated imaging demonstrates normal global and regional LV systolic function. LVEF is calculated at 64%. Conclusion: No definite evidence of fixed or reversible perfusion defects. There is increased transient ischemic dilatation ratio (TID 1.39), suggestive of possible multivessel disease or balanced ischemia. Gated imaging demonstrates normal global and regional LV systolic function. LVEF is calculated at 64%. Electronically signed by : Keya Davey MD 11/16/2023 11:18:01
[2023-11-12] MEDS: REGADENOSON 0.4MG/5ML SYRINGE 0.400000000000000022 MG IV (10:16)
[2023-11-12] MEDS: SODIUM CHLORIDE 0.9% 10ML SYR (RAD ONLY) 10 ML IV ×2 (10:17)
[2023-11-12] MEDS: ISOTOPE MYOVIEW (PER STUDY) 1 DOSE IV (10:17)
== END 2023-11-12 23:59 ==
LOC: RAD 06:58
PROVIDERS: PCP Family Medicine; Visit Provider Nurse Practitioner Family
DX: E78.5 Hyperlipidemia, unspecified (principal); I11.9 Hypertensive heart disease without heart failure; I25.10 Atherosclerotic heart disease of native coronary artery without angina pectoris; I34.0 Nonrheumatic mitral (valve) insufficiency; R00.2 Palpitations; R06.00 Dyspnea, unspecified; Z72.0 Tobacco use; Z95.0 Presence of cardiac pacemaker
CPT/HCPCS: 78452; 93017; 93018; 93306; A9502; J2785

== ENCOUNTER 2023-11-25 21:49 | Outpatient (CLI) | payer MEDICARE, SELFPAY ==
[2023-11-25 19:15] LABS: Basophils # 0.1 K/mm3 (0-0.2); Basophils % 0.5 % (0.1-2.0); Eosinophils # 0.4 K/mm3 (0.0-0.4); Eosinophils % 3.9 % (0.1-12.0); Hematocrit 35.5 % (37.0-47.0); Hemoglobin 11.6 g/dL (12.2-16.2); Lymphocytes # 2.7 K/mm3 (0.7-4.5); Lymphocytes % 29.5 % (10-50); Mean Corpuscular HGB Conc 32.6 g/dL (31.8-35.4); Mean Corpuscular Hemoglobin 28.7 pg (27.0-31.2); Mean Platelet Volume 10.6 fl (7.4-10.4); Monocytes # 0.5 K/mm3 (0.1-1.0); Monocytes % 5.7 % (1.7-9.3); Neutrophils # 5.4 K/mm3 (1.8-7.8); Neutrophils % 60.4 % (37.0-80.0); Platelet Count 301 K/mm3 (142-424); Red Blood Count 4.03 M/mm3 (4.20-5.40); Red Cell Distribution Width 14.7 % (11.5-17.5)
[2023-11-25 19:35] LABS: Alanine Aminotransferase 10 U/L (12-78); Albumin Level 4.4 g/dl (3.5-5.0); Albumin/Globulin Ratio 1.8 (1.1-1.8); Alkaline Phosphatase 115 U/L (38-126); Anion Gap 14.2 mEq/L (5-15); Aspartate Amino Transferase 23 U/L (14-36); Bilirubin,Total 0.6 mg/dl (0.2-1.3); Blood Urea Nitrogen 20 mg/dl (7-17); Calcium 8.7 mg/dl (8.4-10.2); Carbon Dioxide 24 mmol/L (22.0-30.0); Chloride 102 mmol/L (98-107); Estimated Glomerular Filt Rate 35 ml/min (>60); GFR (African American) 42 ML/MIN (>60); Globulin 2.5 g/dL (1.3-3.2); Glucose 100 mg/dl (74-100); Potassium 5.2 mmoL/L (3.5-5.1); Sodium 135 mmol/L (136-145); Total Protein,Serum 6.9 g/dl (6.3-8.2)
[2023-11-25 19:54] LABS: Free Thyroxine Index 4.1 ug/dL (5.93-13.13); T4 (Thyroxine) 12.5 ug/dl (5.53-11.0); Triiodothryronine (T3) Uptake 33 % (23.5-40.5)
[2023-11-25 20:08] LABS: Thyroid Stimulating Hormone 2.31 uIU/mL (0.465-4.68); Thyroid Stimulating Hormone 2.33 uIU/mL (0.465-4.68)
== END 2023-11-25 23:59 ==
LOC: LAB.DROPOF 21:51
PROVIDERS: PCP Family Medicine; Visit Provider Family Medicine
DX: N17.9 Acute kidney failure, unspecified (principal); E03.9 Hypothyroidism, unspecified; R79.89 Other specified abnormal findings of blood chemistry; Z79.899 Other long term (current) drug therapy
CPT/HCPCS: 80053; 84436; 84443; 84479; 85025

== ENCOUNTER 2023-12-21 12:39 | Outpatient (CLI) | payer MEDICARE, SELFPAY ==
--- NOTE | 2023-12-21 12:42 | US_ITS ---
FINAL REPORT CLINICAL HISTORY: abnormal thyroid labs COMPARISON: None FINDINGS: THYROID ULTRASOUND: The right lobe of the thyroid measures 4.5 x 1.4 x 2.1 cm in size. There are several nodules in the right lobe of the thyroid, 1 of which measures 4 x 4 x 2 mm in size, is cystic, with a macrocalcification, a TI-RADS category 1 nodule. There is a second nodule measuring 4 x 4 x 5 mm in size with peripheral calcification, a TI-RADS category 2 nodule. The left lobe of the thyroid measures 4.6 x 1.5 x 1.6 cm in size. Once again several small nodules are identified. One of the nodules measures 5 x 4 x 3 mm in size, is cystic and solid, hypoechoic, a TI-RADS category 3 nodule. The isthmus measures 4.5 mm in thickness. There is a cystic nodule in the isthmus measuring 6 x 5 x 3 mm in size, a TI-RADS category 1 nodule. IMPRESSION: Multiple small subcentimeter cysts are present in the thyroid gland as described above. According to TI-RADS criteria, none of these nodules require follow-up at this time. Reviewed, Interpreted and Dictated by Damian Valles III, MD Transcribed by Norma Neal Authenticated and . [facility]
== END 2023-12-21 23:59 ==
LOC: RAD 12:40
PROVIDERS: PCP Family Medicine; Visit Provider Family Medicine
DX: R79.89 Other specified abnormal findings of blood chemistry (principal)
CPT/HCPCS: 76536

== ENCOUNTER 2024-01-14 18:32 | Outpatient (CLI) | payer MEDICARE, SELFPAY ==
[2024-01-14 18:45] LABS: Alanine Aminotransferase 9 U/L (12-78); Albumin Level 4.9 g/dl (3.5-5.0); Albumin/Globulin Ratio 1.8 (1.1-1.8); Alkaline Phosphatase 94 U/L (38-126); Anion Gap 17.3 mEq/L (5-15); Aspartate Amino Transferase 23 U/L (14-36); Bilirubin,Total 0.4 mg/dl (0.2-1.3); Blood Urea Nitrogen 43 mg/dl (7-17); Calcium 9.6 mg/dl (8.4-10.2); Carbon Dioxide 22 mmol/L (22.0-30.0); Chloride 105 mmol/L (98-107); Estimated Glomerular Filt Rate 25 ml/min (>60); GFR (African American) 30 ML/MIN (>60); Globulin 2.8 g/dL (1.3-3.2); Glucose 80 mg/dl (74-100); Potassium 5.3 mmoL/L (3.5-5.1); Sodium 139 mmol/L (136-145); Total Protein,Serum 7.7 g/dl (6.3-8.2)
== END 2024-01-14 23:59 ==
LOC: LAB.DROPOF 18:32
PROVIDERS: Visit Provider Family Medicine
DX: N28.1 Cyst of kidney, acquired (principal)
CPT/HCPCS: 80053

== ENCOUNTER 2024-01-28 11:39 | Outpatient (CLI) | payer MEDICARE, SELFPAY ==
--- NOTE | 2024-01-28 11:46 | XR_ITS ---
FINAL REPORT CLINICAL HISTORY: back/neck pain COMPARISON: None FINDINGS: CERVICAL SPINE: Mild and moderate degenerative changes noted throughout the cervical spine, most severe at the C6-7 level. No acute bony abnormality is identified. No prevertebral soft tissue swelling is noted. IMPRESSION: Mild and moderate degenerative change throughout the cervical spine, most severe at the C6-7 level. THORACIC SPINE: There is mild right curvature of the thoracic spine. There is mild and moderate degenerative change throughout the thoracic spine. No acute bony abnormality is identified. No paraspinal soft tissue abnormality is present. IMPRESSION: Mild right curvature of the thoracic spine, with mild and moderate degenerative change. LUMBAR SPINE: There is moderate degenerative change in the lumbar spine with facet osteoarthropathy in the lower lumbar spine. There is a mild left curvature of the lumbar spine. Vascular calcifications are noted. No acute bony abnormality is identified. IMPRESSION: Moderate degenerative change with facet osteoarthropathy and mild left curvature. Reviewed, Interpreted and Dictated by Damian Valles III, MD Transcribed by Norma Neal Authenticated and . [facility]
== END 2024-01-28 23:59 | disposition home or self-care (01) ==
LOC: RAD 11:40
PROVIDERS: PCP Family Medicine; Visit Provider Family Medicine
DX: M54.2 Cervicalgia (principal); M54.59 Other low back pain
CPT/HCPCS: 72084

== ENCOUNTER 2024-02-09 18:00 | Outpatient (CLI) | payer MEDICARE, SELFPAY ==
[2024-02-09 18:32] LABS: Basophils # 0.1 K/mm3 (0-0.2); Eosinophils # 0.7 K/mm3 (0.0-0.4); Eosinophils % 7.4 % (0.1-12.0); Hemoglobin 12.4 g/dL (12.2-16.2); Lymphocytes # 3.1 K/mm3 (0.7-4.5); Lymphocytes % 33.8 % (10-50); Mean Corpuscular HGB Conc 31.8 g/dL (31.8-35.4); Mean Corpuscular Hemoglobin 29.1 pg (27.0-31.2); Mean Corpuscular Volume 91.6 fl (81-99); Mean Platelet Volume 10.3 fl (7.4-10.4); Monocytes # 0.5 K/mm3 (0.1-1.0); Monocytes % 5.5 % (1.7-9.3); Neutrophils # 4.9 K/mm3 (1.8-7.8); Neutrophils % 52.3 % (37.0-80.0); Platelet Count 249 K/mm3 (142-424); Red Blood Count 4.26 M/mm3 (4.20-5.40); Red Cell Distribution Width 14.8 % (11.5-17.5); White Blood Count 9.3 K/mm3 (4.8-10.8)
[2024-02-09 18:53] LABS: Alanine Aminotransferase 8 U/L (12-78); Albumin Level 4.8 g/dl (3.5-5.0); Albumin/Globulin Ratio 1.7 (1.1-1.8); Alkaline Phosphatase 88 U/L (38-126); Anion Gap 14.4 mEq/L (5-15); Aspartate Amino Transferase 23 U/L (14-36); Bilirubin,Total 0.6 mg/dl (0.2-1.3); Blood Urea Nitrogen 51 mg/dl (7-17); Carbon Dioxide 27 mmol/L (22.0-30.0); Chloride 102 mmol/L (98-107); Chol/HDL Ratio 4.7 (1-3.5); Cholesterol 178 mg/dl (140-200); Estimated Glomerular Filt Rate 22 ml/min (>60); GFR (African American) 27 ML/MIN (>60); Globulin 2.8 g/dL (1.3-3.2); Glucose 81 mg/dl (74-100); HDL Cholesterol 38 mg/dl (40-60); Potassium 5.4 mmoL/L (3.5-5.1); Sodium 138 mmol/L (136-145); Total Protein,Serum 7.6 g/dl (6.3-8.2); Triglycerides 79 mg/dl (30-150); VLDL Cholesterol 16 mg/dL (0-40)
[2024-02-09 19:15] LABS: 25-OH Vitamin D, Total 37.7 ng/mL (30-100)
[2024-02-09 20:02] LABS: Folate 6.77 ng/mL; Vitamin B12 517 pg/mL (239-931)
[2024-02-09 20:10] LABS: Hemoglobin A1C 5.6 % (4.0-6.0)
[2024-02-09 20:15] LABS: Iron 69 ug/dL (37-170)
[2024-02-09 20:25] LABS: Total Iron Binding Capacity 326 ug/dL (265-497)
[2024-02-09 20:53] LABS: Ferritin 94.7 ng/ml (11.1-264)
== END 2024-02-09 23:59 | disposition home or self-care (01) ==
LOC: LAB.DROPOF 02-10 10:21
PROVIDERS: PCP Internal Medicine; Visit Provider Internal Medicine
DX: R10.9 Unspecified abdominal pain (principal); I10 Essential (primary) hypertension; M54.50 Low back pain, unspecified; G89.29 Other chronic pain; E61.1 Iron deficiency; E78.5 Hyperlipidemia, unspecified; E55.9 Vitamin D deficiency, unspecified; E11.9 Type 2 diabetes mellitus without complications
CPT/HCPCS: 80053; 80061; 82306; 82607; 82728; 82746; 83036; 83540; 83550; 85025

== ENCOUNTER 2024-02-10 12:38 | Outpatient (CLI) | payer MEDICARE, SELFPAY ==
--- NOTE | 2024-02-10 12:43 | XR_ITS ---
FINAL REPORT CLINICAL HISTORY: left knee pain FINDINGS: Left knee Three views were obtained. There is no acute fracture or dislocation. The joint spaces appear normal. No joint effusion is identified. No soft tissue abnormality is identified. IMPRESSION: No acute process. Reviewed, Interpreted and Dictated by Good Castillo MD Transcribed by Trina Del Valle Authenticated and [facility]
== END 2024-02-10 23:59 | disposition home or self-care (01) ==
LOC: RAD 12:39
PROVIDERS: PCP Family Medicine; Visit Provider Internal Medicine
DX: M25.562 Pain in left knee (principal)
CPT/HCPCS: 73562

== ENCOUNTER 2024-04-07 14:00 | Outpatient (CLI) | payer MEDICARE, SELFPAY ==
[2024-04-07 20:05] LABS: Hemoglobin A1C 5.8 % (4.0-6.0)
[2024-04-07 20:23] LABS: Chloride 106 mmol/L (98-107)
[2024-04-07 20:24] LABS: Potassium 5.6 mmoL/L (3.5-5.1); Sodium 140 mmol/L (136-145)
[2024-04-07 20:26] LABS: Alanine Aminotransferase 8 U/L (12-78); Alkaline Phosphatase 90 U/L (38-126); Anion Gap 14.6 mEq/L (5-15); Aspartate Amino Transferase 24 U/L (14-36); Bilirubin,Total 0.3 mg/dl (0.2-1.3); Blood Urea Nitrogen 42 mg/dl (7-17); Carbon Dioxide 25 mmol/L (22.0-30.0); Estimated Glomerular Filt Rate 17 ml/min (>60); GFR (African American) 21 ML/MIN (>60)
[2024-04-07 20:27] LABS: Albumin Level 4.4 g/dl (3.5-5.0); Albumin/Globulin Ratio 1.5 (1.1-1.8); Calcium 10.2 mg/dl (8.4-10.2); Globulin 2.9 g/dL (1.3-3.2); Glucose 94 mg/dl (74-100); Total Protein,Serum 7.3 g/dl (6.3-8.2)
[2024-04-08 12:36] LABS: HIV (1&2) Antibody Rapid NON REACTIVE
[2024-04-12 00:08] LABS: HBsAg Screen Negative (Negative); HCV Ab Reactive (Non Reactive); Hep A Ab, IGM Negative (Negative); Hep B Core Ab, IgM Negative (Negative)
== END 2024-04-07 23:59 | disposition home or self-care (01) ==
LOC: LAB.DROPOF 04-08 10:48
PROVIDERS: PCP Internal Medicine; Visit Provider Internal Medicine
DX: D64.9 Anemia, unspecified (principal); I10 Essential (primary) hypertension; R53.83 Other fatigue; Z79.899 Other long term (current) drug therapy; Z87.891 Personal history of nicotine dependence
CPT/HCPCS: 80053; 80074; 83036

== ENCOUNTER 2024-04-26 14:51 | Outpatient (CLI) | payer MEDICARE, SELFPAY ==
--- NOTE | 2024-04-26 14:53 | CT_ITS ---
FINAL REPORT TECHNIQUE: Axial images were obtained from the lung apex to the mid abdomen by computed tomography. This study was performed with techniques to keep radiation doses as low as reasonably achievable (ALARA). Individualized dose reduction techniques using automated exposure control or adjustment of mA and/or kV according to the patient's size were employed. CLINICAL HISTORY: lung cancer screening hx copd, emphysema current smoker of 30 years, 1/2 ppd COMPARISON: 11/06/2023 FINDINGS: CHEST CT LOW DOSE CTDI vol (mGy): 2.90 DLP (mGy-cm): 102.90 There is no axillary adenopathy. There is no hilar or mediastinal adenopathy. The heart is normal in size. Left subclavian pacer is identified. There is moderate vascular calcification. There is no pericardial or pleural effusion. Note is made of mild pulmonary scarring. There are new, left base opacities measuring up to 15 mm, favor inflammatory. Limited images of the upper abdomen are unremarkable. IMPRESSION: New left base opacities, favor inflammatory. Lung RADS category 0. Recommend 1-3 month follow-up low-dose chest CT. Reviewed, Interpreted and Dictated by Damian Valles III, MD Transcribed by Trina Del Valle Authenticated and . [facility]
== END 2024-04-26 23:59 | disposition home or self-care (01) ==
LOC: RAD 14:53
PROVIDERS: PCP Internal Medicine; Visit Provider Internal Medicine
DX: F17.210 Nicotine dependence, cigarettes, uncomplicated (principal); Z12.2 Encounter for screening for malignant neoplasm of respiratory organs
CPT/HCPCS: 71271

== ENCOUNTER 2024-05-02 14:16 | Inpatient (IN) | payer MEDICARE, SELFPAY ==
[2024-05-02] VITALS (34 sets, daily range): BP systolic 57–135; BP diastolic 28–75; PULSE 59–106; RESP 12–20; TEMP 36.5–36.9; O2SAT 84–100; BMI 20.6; BMI 17.0
--- NOTE | 2024-05-02 14:30 | HMH.EDGENADL ---
Discharge Plan Disposition Patient Disposition: Admitted Condition: Critical Clinical Impressions Clinical Impression: Acute kidney injury (nontraumatic), Hypomagnesemia, Hypocalcemia, Nausea vomiting and diarrhea Discharge ED Provider: Oskar Herron General Adult HPI <MAXX Rockwell - Last Filed: 05/02/24 17:20> General Chief complaint: Nausea/Vomiting/Diarrhea Stated complaint: Nausea Time Seen by Provider: 05/02/24 14:30 Mode of Arrival: EMS Source of Information: Patient Limitations: No Limitations Description of Symptoms (Recalled from ER Triage Doc. by RN): pt to the ED via ems with nausea, vomiting and diarrhea x 3 days with increasing lethargy. pt has been around her daughter all week who just recently tested positive for the flu History of Present Illness HPI narrative: Patient presents to the emergency department for nausea vomiting diarrhea and syncope. Patient gives a 3-day history of nausea vomiting and today had a syncopal event while attempting to get out of her recliner in the living room. Patient denies any trauma or pain. She has no chest pain shortness of breath fever chills hemoptysis hematochezia melena hematemesis hematuria. Related Data Home Medications Medication Instructions Recorded Confirmed albuterol sulfate 90 mcg/actuation 2 puff inhalation Q6HP PRN 11/06/23 04/07/24 aerosol inhaler Shortness Of Breath Previous Rx's Medication Instructions Recorded docusate sodium 100 mg capsule 100 mg PO DAILY #30 caps 11/11/23 (Colace) hydrocortisone 2.5 % topical cream 1 applic topical DAILY PRN itching 12/01/23 #30 grams estradiol 0.01% (0.1 mg/gram) See Rx Instructions vaginal 12/28/23 vaginal cream .COMPLEX #42.5 grams mirabegron 50 mg tablet,extended 50 mg PO DAILY #30 tabs 12/28/23 release 24 hr escitalopram oxalate 20 mg tablet 20 mg PO DAILY MOOD #90 tabs 12/29/23 oxybutynin chloride 10 mg 10 mg PO DAILY 90 days #180 tabs 12/30/23 tablet,extended release 24 hr metoprolol succinate 25 mg See Rx Instructions .Route 02/11/24 tablet,extended release 24 hr .COMPLEX #30 tabs loratadine 10 mg tablet See Rx Instructions .Route 02/15/24 .COMPLEX #30 tabs spironolactone 100 mg tablet See Rx Instructions .Route 02/15/24 .COMPLEX #30 tabs atorvastatin 20 mg tablet See Rx Instructions .Route 03/02/24 .COMPLEX #90 tabs omeprazole 20 mg capsule,delayed See Rx Instructions .Route 03/10/24 release .COMPLEX acid reflux #90 caps apixaban 5 mg tablet (Eliquis) 5 mg PO DAILY 90 days #90 tabs 03/16/24 furosemide 40 mg tablet 40 mg PO DAILY 90 days #90 tabs 03/16/24 sacubitril 24 mg-valsartan 26 mg See Rx Instructions .Route 03/24/24 tablet (Entresto) .COMPLEX #60 tabs cariprazine 1.5 mg capsule See Rx Instructions .Route 04/08/24 (Vraylar) .COMPLEX #90 caps promethazine 25 mg tablet 25 mg PO Q8H PRN cough #30 tabs 04/20/24 gabapentin 400 mg capsule 400 mg PO TID #90 caps 04/29/24 oxycodone 10 mg tablet 10 mg PO QID MODERATE TO SEVERE 04/29/24 PAIN 30 days #120 tabs Allergies Allergy/AdvReac Type Severity Reaction Status Date / Time acetaminophen Allergy Unknown Unknown Verified 04/07/24 11:53 [From DARVOCET-N] allergy reaction codeine [CODEINE] Allergy Unknown Unknown Verified 04/07/24 11:53 allergy reaction propoxyphene Allergy Unknown Unknown Verified 04/07/24 11:53 [From DARVOCET-N] allergy reaction tomato AdvReac Mild Gastrointestinal Verified 04/07/24 11:53 Upset [facility] <MAXX Rockwell - Last Filed: 05/02/24 17:20> [facility] Disclaimer: The information contained in this section may have been updated after the patient was seen, as this information can be updated by other users. Medical History COPD (chronic obstructive pulmonary disease) Back Pain Patient states that the oxycodone has dramatically helped her back pain. We will continue with the current dose. PDMP and urine screens have been unremarkable except for the THC in the past. Black stools Sepsis Left foot pain Acquired hammer toes of both feet Acquired hallux valgus of left foot Incurved toenail Neuropathy Callus of foot Primary osteoarthritis of both feet Fatigue Dizziness Near syncope Symptomatic bradycardia Bradycardia Abdominal pain Ischemic colitis CHF (congestive heart failure) Non-STEMI (non-ST elevated myocardial infarction) Atrial fibrillation with rapid ventricular response Acute renal failure Dehydration Urinary tract infection Sepsis CKD (chronic kidney disease) Diarrhea Dehydration DONNIE (acute kidney injury) COVID-19 Sinus bradycardia Viral cardiomyopathy Elevated white blood cell count, unspecified Renal insufficiency Takotsubo cardiomyopathy Elevated left ventricular end-diastolic pressure (LVEDP) Gastroenteritis ST elevation [place] (STEMI) ADIEL (obstructive sleep apnea) TIA (transient ischemic attack) Facial droop Atypical angina HTN (hypertension) Edema Tobacco dependence syndrome Abnormal EKG Chest pain Overweight (BMI 25.0-29.9) Trapezius muscle strain Pre-ulcerative calluses Lumbar disc disease with radiculopathy Lumbar foraminal stenosis Lumbar spondylosis Anxiety Dizziness Angina pectoris History of CVA (cerebrovascular accident) Solitary lung nodule Palpitations Dyspnea Tobacco user HLD (hyperlipidemia) HHD (hypertensive heart disease) Mitral valve regurgitation CAD (coronary artery disease) Surgical History Presence of cardiac pacemaker Family History Other No significant family history Social History Smoking Status: Current every day smoker tobacco type: cigarettes packs per day: 1 second hand exposure: Yes alcohol intake: never substance use type: denies use current occupational status: unemployed Travel in the last 8 weeks: None household members: family housing: house current occupational exposures/hazards: No caffeine: Yes <MAXX Rockwell - Last Filed: 05/02/24 17:20> ROS Obtained: Yes Systems reviewed as appropriate & no additional complaints except as documented Physical Exam <MAXX Rockwell - Last Filed: 05/02/24 17:20> General General appearance: alert (Cachectic) and in no apparent distress Head Head exam: atraumatic and normal inspection Eye Eye exam: Present normal appearance and EOMI ENT ENT exam: Present normal exam, normal oropharynx and mucous membranes moist Neck Neck exam: Present normal inspection and full ROM (Full 45 degree in all planes without pain); Absent tenderness, meningismus or lymphadenopathy Chest Chest inspection: Present normal inspection and symmetric chest wall rise; Absent tenderness Respiratory Respiratory exam: Present normal lung sounds bilaterally; Absent respiratory distress, wheezes, stridor or accessory muscle use Cardiovascular Cardiovascular exam: Present regular rate, normal rhythm, normal heart sounds, +S1 and +S2 Abdominal Exam Abdominal exam: Present soft, tenderness (Diffuse abdominal tenderness without rebound or guarding or rigidity. Normal active bowel sounds) and normal bowel sounds; Absent guarding, rebound or rigidity Extremities Exam Extremities exam: Present full ROM; Absent normal inspection (Patient has multiple excoriations over the bilateral lower extremities distally without evidence of erythema edema or induration.) Back Exam Back exam: Present normal inspection; Absent tenderness Neurological Exam Neurological exam: Present alert and oriented X3 Psychiatric Psychiatric exam: Present normal affect and normal mood Skin Skin exam: Present warm, dry and normal color; Absent intact (Patient has corrugations over the bilateral anterior lower extremities that are not currently bleeding without evidence of erythema lymphedema lymphangitis cellulitis or induration.) Medical Decision Making <MAXX Rockwell - Last Filed: 05/02/24 17:20> Medical Records Medical records reviewed: Yes I reviewed the patient's medical records. Honorio Inquiry Pt receiving controlled substance: No Vital Signs: 05/02/24 14:17 05/02/24 15:00 05/02/24 16:00 Pulse Rate 62 62 Pulse Rate [Left Radial] 63 Respiratory Rate 16 Blood Pressure 102/45 L 97/48 L Blood Pressure [Right Arm] 95/45 L Blood Pressure Mean 65 67 Blood Pressure Mean [Right Arm] 61 Blood Pressure Source [Right Arm] Automatic Cuff Blood Pressure Position [Right Arm] Sitting 02 Sat by Pulse Oximetry 98 95 96 Oxygen Delivery Method Room Air Room Air Room Air 05/02/24 16:30 05/02/24 17:00 Pulse Rate 59 L 59 L Pulse Rate [Left Radial] Respiratory Rate Blood Pressure 93/42 L 95/42 L Blood Pressure [Right Arm] Blood Pressure Mean 61 69 Blood Pressure Mean [Right Arm] Blood Pressure Source [Right Arm] Blood Pressure Position [Right Arm] 02 Sat by Pulse Oximetry 95 95 Oxygen Delivery Method Lab Data Lab results reviewed: Yes I reviewed the patient's lab results. Lab Results 05/02/24 14:30: WBC 10.3, RBC 3.85 L, Hgb 11.0 L, Hct 33.7 L, MCV 87.5, MCH 28.4, MCHC 32.5, RDW 14.3, Plt Count 206, MPV 11.4 H, Neut % (Auto) 76.0, Lymph % (Auto) 16.6, [place] % (Auto) 4.1, Eos % (Auto) 2.8, Baso % (Auto) 0.6, Neut # (Auto) 7.9 H, Lymph # (Auto) 1.7, [place] # (Auto) 0.4, Eos # (Auto) 0.3, Baso # (Auto) 0.1, Sodium 142, Potassium 5.1, Chloride 113 H, Carbon Dioxide 19 L, Anion Gap 15.1 H, BUN 58 H, Creatinine 3.90 H, Estimated Creat Clear 11, Estimated GFR 11 L*, Est GFR ( Amer) 14 L*, Glucose 97, Calcium 5.7 L, Magnesium < 0.2 L, Total Bilirubin 0.4, AST 24, ALT 9 L, Alkaline Phosphatase 57, Troponin I 0.02, Total Protein 7.0, Albumin 4.0, Globulin 3.0, Albumin/Globulin Ratio 1.3 05/02/24 14:50: VBG pH 7.26 L, VBG pCO2 43.3, VBG pO2 59.0 H, VBG HCO3 19.0 L, VBG Total CO2 20.3 L, VBG O2 Saturation 85.2 H, VBG Base Excess -8.1 L, VBG Lactic Acid 1.7 05/02/24 15:40: Urine Color Yellow, Urine Appearance Clear, Urine pH 5.5, Ur Specific [place] 1.020, Urine Protein Negative, Urine Glucose (UA) Negative, Urine Ketones Negative, Urine Blood Trace-i, Urine Nitrate Negative, Urine Bilirubin Negative, Urine Urobilinogen 0.2, Ur Leukocyte Esterase Negative, Urine RBC Occasional, Urine WBC None, Ur Squamous Epith Cells Occasional, Urine Bacteria None, Urine Yeast 2+ 05/02/24 14:30 05/02/24 14:30 Orders (Tests/Meds): ED MEDICATIONS Generic Name Dose Route Start Last Admin Trade Name Freq PRN Reason Stop Dose Admin Magnesium Sulfate 2 gm in 50 mls @ 50 mls/hr 05/02/24 17:10 05/02/24 17:27 Magnesium Sulfate 2gm/50ml Premix IV 05/02/24 18:09 50 mls/hr ONCE ONE Administration Magnesium Sulfate 2 gm in 50 mls @ 50 mls/hr 05/02/24 17:10 Magnesium Sulfate 2gm/50ml Premix IV 05/02/24 18:09 ONCE ONE Calcium Gluconate/Sodium Chloride 2 gm in 100 mls @ 50 mls/hr 05/02/24 17:14 05/02/24 17:28 Calcium Gluconate 2,000mg/100ml Nacl Premix IV 05/02/24 19:13 50 mls/hr ONCE ONE Administration Discontinued Medications Generic Name Dose Route Start Last Admin Trade Name Freq PRN Reason Stop Dose Admin Sodium Chloride 500 mls @ 999 mls/hr 05/02/24 14:33 05/02/24 14:49 Sod Chlor 0.9% 1000ml Bag IV 05/02/24 15:03 999 mls/hr .Q31M ONE Administration Ondansetron HCl 4 mg 05/02/24 14:33 05/02/24 14:49 Ondansetron 4mg/2ml Vial IV 05/02/24 14:34 4 mg ONCE ONE Administration ORDERS Category Date Time Status CT abdomen pelvis wo con Stat Cat Scan 05/02/24 15:[address] head/brain wo con Stat Cat Scan 05/02/24 14:34 Completed CBC w/Auto Diff [Complete Blood Count Auto Diff] Stat Lab 05/02/24 14:30 Completed CMP [Comprehensive Metabolic Panel] Stat Lab 05/02/24 14:30 Completed Comprehensive Metabolic Panel Stat Lab 05/02/24 17:20 Received Diarrhea 6-11 Panel, Cdiff PCR Stat Lab 05/02/24 16:21 Ordered Full Resp Panel w/COVID ([facility]) Routine Lab 05/02/24 Received MAG [Magnesium] Stat Lab 05/02/24 17:20 Received Magnesium Stat Lab 05/02/24 14:30 Completed Trop I [Troponin I] Stat Lab 05/02/24 14:30 Completed Troponin I Q3H Lab 05/02/24 17:20 Received Troponin I Q3H Lab 05/02/24 20:45 Ordered UA [Urinalysis and Microscopic] Stat Lab 05/02/24 15:40 Completed VBG [Venous Blood Gas] Stat RT 05/02/24 14:50 Completed HEART Score HEART Score: 2 Medical Decision Narrative: In summary patient is a 68-year-old petite cachectic appearing female who presents to the emergency department for evaluation of nausea vomiting diarrhea and syncope. Patient is hypotensive at 95/45 with a heart rate of 63 and O2 sat of 98% on room air breathing 16 times a minute upon arrival, afebrile. Physical exam shows a petite much older than stated age appearing cachectic appearing 68-year-old female who does not appear to be in acute distress. She has mild abdominal tenderness diffusely to palpation with no rebound or guarding or rigidity. Patient has no C-spine tenderness has full range of motion of the cervical spine without tenderness clearing her via the [place] C-spine rules. Differential diagnosis includes vasovagal syncope versus gastroenteritis versus ACS etc. Initial workup will be conducted with hematologic labs CT scan of the head without contrast CT scan abdomen pelvis. Initial interventions include crystalloid bolus Tylenol Zofran. Initial workup reviewed by me [hematologic labs are remarkable for... Imaging remarkable for... Urinalysis remarkable for]. Upon repeat evaluation [patient had acceptable resolution of symptoms, had persistent pain for which additional interventions were conducted (describe interventions), tolerated p.o., was ambulatory, etc.]. Given this [patient is appropriate for discharge at this time and will be discharged with a prescription for... The case was discussed with hospital medicine regarding management and they will admit the patient their service for continued evaluation at this time... Etc.] <Oskar Herron MD - Last Filed: 05/02/24 18:07> Vital Signs: 05/02/24 14:17 05/02/24 15:00 05/02/24 16:00 Pulse Rate 62 62 Pulse Rate [Left Radial] 63 Respiratory Rate 16 Blood Pressure 102/45 L 97/48 L Blood Pressure [Right Arm] 95/45 L Blood Pressure Mean 65 67 Blood Pressure Mean [Right Arm] 61 Blood Pressure Source [Right Arm] Automatic Cuff Blood Pressure Position [Right Arm] Sitting 02 Sat by Pulse Oximetry 98 95 96 Oxygen Delivery Method Room Air Room Air Room Air 05/02/24 16:30 05/02/24 17:00 Pulse Rate 59 L 59 L Pulse Rate [Left Radial] Respiratory Rate Blood Pressure 93/42 L 95/42 L Blood Pressure [Right Arm] Blood Pressure Mean 61 69 Blood Pressure Mean [Right Arm] Blood Pressure Source [Right Arm] Blood Pressure Position [Right Arm] 02 Sat by Pulse Oximetry 95 95 Oxygen Delivery Method Lab Data Lab Results 05/02/24 14:30: WBC 10.3, RBC 3.85 L, Hgb 11.0 L, Hct 33.7 L, MCV 87.5, MCH 28.4, MCHC 32.5, RDW 14.3, Plt Count 206, MPV 11.4 H, Neut % (Auto) 76.0, Lymph % (Auto) 16.6, [place] % (Auto) 4.1, Eos % (Auto) 2.8, Baso % (Auto) 0.6, Neut # (Auto) 7.9 H, Lymph # (Auto) 1.7, [place] # (Auto) 0.4, Eos # (Auto) 0.3, Baso # (Auto) 0.1, Sodium 142, Potassium 5.1, Chloride 113 H, Carbon Dioxide 19 L, Anion Gap 15.1 H, BUN 58 H, Creatinine 3.90 H, Estimated Creat Clear 11, Estimated GFR 11 L*, Est GFR ( Amer) 14 L*, Glucose 97, Calcium 5.7 L, Magnesium < 0.2 L, Total Bilirubin 0.4, AST 24, ALT 9 L, Alkaline Phosphatase 57, Troponin I 0.02, Total Protein 7.0, Albumin 4.0, Globulin 3.0, Albumin/Globulin Ratio 1.3 05/02/24 14:50: VBG pH 7.26 L, VBG pCO2 43.3, VBG pO2 59.0 H, VBG HCO3 19.0 L, VBG Total CO2 20.3 L, VBG O2 Saturation 85.2 H, VBG Base Excess -8.1 L, VBG Lactic Acid 1.7 05/02/24 15:40: Urine Color Yellow, Urine Appearance Clear, Urine pH 5.5, Ur Specific [place] 1.020, Urine Protein Negative, Urine Glucose (UA) Negative, Urine Ketones Negative, Urine Blood Trace-i, Urine Nitrate Negative, Urine Bilirubin Negative, Urine Urobilinogen 0.2, Ur Leukocyte Esterase Negative, Urine RBC Occasional, Urine WBC None, Ur Squamous Epith Cells Occasional, Urine Bacteria None, Urine Yeast 2+ Orders (Tests/Meds): ED MEDICATIONS Generic Name Dose Route Start Last Admin Trade Name Freq PRN Reason Stop Dose Admin Magnesium Sulfate 2 gm in 50 mls @ 50 mls/hr 05/02/24 17:10 05/02/24 17:27 Magnesium Sulfate 2gm/50ml Premix IV 05/02/24 18:09 50 mls/hr ONCE ONE Administration Magnesium Sulfate 2 gm in 50 mls @ 50 mls/hr 05/02/24 17:10 Magnesium Sulfate 2gm/50ml Premix IV 05/02/24 18:09 ONCE ONE Calcium Gluconate/Sodium Chloride 2 gm in 100 mls @ 50 mls/hr 05/02/24 17:14 05/02/24 17:28 Calcium Gluconate 2,000mg/100ml Nacl Premix IV 05/02/24 19:13 50 mls/hr ONCE ONE Administration Discontinued Medications Generic Name Dose Route Start Last Admin Trade Name Freq PRN Reason Stop Dose Admin Sodium Chloride 500 mls @ 999 mls/hr 05/02/24 14:33 05/02/24 14:49 Sod Chlor 0.9% 1000ml Bag IV 05/02/24 15:03 999 mls/hr .Q31M ONE Administration Ondansetron HCl 4 mg 05/02/24 14:33 05/02/24 14:49 Ondansetron 4mg/2ml Vial IV 05/02/24 14:34 4 mg ONCE ONE Administration ORDERS Category Date Time Status CT abdomen pelvis wo con Stat Cat Scan 05/02/24 15:[address] head/brain wo con Stat Cat Scan 05/02/24 14:34 Completed CBC w/Auto Diff [Complete Blood Count Auto Diff] Stat Lab 05/02/24 14:30 Completed CMP [Comprehensive Metabolic Panel] Stat Lab 05/02/24 14:30 Completed Comprehensive Metabolic Panel Stat Lab 05/02/24 17:20 Received Diarrhea 6-11 Panel, Cdiff PCR Stat Lab 05/02/24 16:21 Ordered Full Resp Panel w/COVID ([facility]) Routine Lab 05/02/24 Received MAG [Magnesium] Stat Lab 05/02/24 17:20 Received Magnesium Stat Lab 05/02/24 14:30 Completed Trop I [Troponin I] Stat Lab 05/02/24 14:30 Completed Troponin I Q3H Lab 05/02/24 17:20 Received Troponin I Q3H Lab 05/02/24 20:45 Ordered UA [Urinalysis and Microscopic] Stat Lab 05/02/24 15:40 Completed VBG [Venous Blood Gas] Stat RT 05/02/24 14:50 Completed ECG Data Tracing #1: Independently interpreted by me, rate is 60, rhythm is regular, a paced, no ST elevation in anatomical contiguous leads, QTc 406. HEART Score History (anamnesis): Slightly suspicious ECG: Normal Age: >65 years Risk factors: No known risk factors Troponin: </= normal limit HEART Score: 2 Medical Decision Narrative: In summary patient is a 68-year-old petite cachectic appearing female who presents to the emergency department for evaluation of nausea vomiting diarrhea and syncope. Patient is hypotensive at 95/45 with a heart rate of 63 and O2 sat of 98% on room air breathing 16 times a minute upon arrival, afebrile. Physical exam shows a petite much older than stated age appearing cachectic appearing 68-year-old female who does not appear to be in acute distress. She has mild abdominal tenderness diffusely to palpation with no rebound or guarding or rigidity. Patient has no C-spine tenderness has full range of motion of the cervical spine without tenderness clearing her via the [place] C-spine rules. Differential diagnosis includes vasovagal syncope versus gastroenteritis versus ACS etc. Initial workup will be conducted with hematologic labs CT scan of the head without contrast CT scan abdomen pelvis. Initial interventions include crystalloid bolus Tylenol Zofran. Initial workup reviewed by me, patient has critical hypomagnesemia and hypocalcemia which will be repleted 4 g of IV magnesium sulfate, 2 g of calcium gluconate. Patient be hooked up on the ZOLL, she has no evidence of torsades that is ongoing at this time. She has an acidosis secondary to her diarrhea as well, DONNIE on CKD with ongoing crystalloid resuscitation. CMP will be repeated. Hospital medicine regarding management they admit the patient to service for continued evaluation at this time. I was consulted by the MULU, and we discussed the complexity of the problems being addressed. I approved the treatment and management plan for this patient's care in the emergency department, thus performing a substantive portion of the medical decision making. Oskar Herron MD Critical Care <MAXX Rockwell - Last Filed: 05/02/24 17:20> Critical Care Time Critical Care Time: Yes Attestation: On 05/02/24, the high probability of a clinically significant, sudden or life threatening deterioration of the following systems: Cardiovascular gastrointestinal; required my full and direct attention, intervention and personal management. The time I documented below is in addition to time spent performing reported procedures but includes the following listed in this critical care notation. Total Time Total Critical Care Time: 30
--- NOTE | 2024-05-02 14:34 | CT_ITS ---
FINAL REPORT TECHNIQUE: Thin section axial images were obtained from skull base to vertex without contrast. Coronal reconstruction images were obtained from the axial data. Exam was performed using dose reduction technique. CLINICAL HISTORY: Syncope COMPARISON: 11/06/2023 FINDINGS: There is an old right periventricular infarct. There is no mass effect or midline shift. There is no hydrocephalus. There is no intracranial hemorrhage. The posterior fossa is without acute abnormality. The basilar cisterns are preserved. The soft tissues are without acute abnormality. No acute osseous abnormality is identified. IMPRESSION: No acute intracranial abnormality. Reviewed, Interpreted and Dictated by Veronica Lozano MD Transcribed by Erna Fatima Authenticated and [facility]
[2024-05-02 14:44] LABS: Basophils # 0.1 K/mm3 (0-0.2); Basophils % 0.6 % (0.1-2.0); Eosinophils # 0.3 K/mm3 (0.0-0.4); Eosinophils % 2.8 % (0.1-12.0); Hematocrit 33.7 % (37.0-47.0); Lymphocytes # 1.7 K/mm3 (0.7-4.5); Lymphocytes % 16.6 % (10-50); Mean Corpuscular HGB Conc 32.5 g/dL (31.8-35.4); Mean Corpuscular Hemoglobin 28.4 pg (27.0-31.2); Mean Corpuscular Volume 87.5 fl (81-99); Mean Platelet Volume 11.4 fl (7.4-10.4); Monocytes # 0.4 K/mm3 (0.1-1.0); Monocytes % 4.1 % (1.7-9.3); Neutrophils # 7.9 K/mm3 (1.8-7.8); Platelet Count 206 K/mm3 (142-424); Red Blood Count 3.85 M/mm3 (4.20-5.40); Red Cell Distribution Width 14.3 % (11.5-17.5); White Blood Count 10.3 K/mm3 (4.8-10.8)
[2024-05-02] MEDS: 0.9 % SODIUM CHLORIDE 1000ML 500 ML 999 ML IV (14:49)
[2024-05-02] MEDS: ONDANSETRON 4MG/2ML VIAL 4 MG IV (14:49)
--- NOTE | 2024-05-02 14:51 | PC.NURSE ---
spoke with pt daughter with pt permission. Updated her on patient condition and informed her that we are still waiting on her respiratory panel and a few other labs to result. Pt daughter reports her concern for multiple episodes of diarrhea at home. I informed her we ordered a stool sample as well to look for further cause. She stated she would call back in an hour or so to check on her again. Pt is currently resting with eyes closed and has call light at bedside.
[2024-05-02 14:56] LABS: Chloride 113 mmol/L (98-107)
[2024-05-02 14:57] LABS: Lactate Venous 1.7 mmol/L (0.4-2.0); VBG Base Excess -8.1 mmol/L (-2.4-2.3); VBG Oxygen Saturation 85.2 % (50-70); VBG PCO2 43.3 mmol/L (35-51); VBG PH 7.26 mmol/L (7.31-7.41); VBG Total CO2 20.3 mmol/L (23-27)
[2024-05-02 14:57] LABS: Potassium 5.1 mmoL/L (3.5-5.1); Sodium 142 mmol/L (136-145)
[2024-05-02 14:59] LABS: Alanine Aminotransferase 9 U/L (12-78); Alkaline Phosphatase 57 U/L (38-126); Anion Gap 15.1 mEq/L (5-15); Aspartate Amino Transferase 24 U/L (14-36); Bilirubin,Total 0.4 mg/dl (0.2-1.3); Blood Urea Nitrogen 58 mg/dl (7-17); Carbon Dioxide 19 mmol/L (22.0-30.0); Creatinine Clearance Estimated 11 mL/min (50-200); Estimated Glomerular Filt Rate 11 ml/min (>60); GFR (African American) 14 ML/MIN (>60)
[2024-05-02 15:00] LABS: Albumin/Globulin Ratio 1.3 (1.1-1.8); Calcium 5.7 mg/dl (8.4-10.2); Glucose 97 mg/dl (74-100)
--- NOTE | 2024-05-02 15:01 | ECG_ITS ---
APPROVED REPORT Exam: Resting ECG HR:60 bpm ECG Measurements Heart Rate 60 AXES NH 169 P 206 QRSd 91 QRS 70 QT 406 T 60 QTc 406 Conclusion ELECTRONIC ATRIAL PACEMAKER ABNORMAL RHYTHM ECG Electronically signed by : SUSHILA PERSAUD, 05/02/2024 22:47:34
[2024-05-02 15:11] LABS: Troponin I 0.02 ng/ml (0.00-0.034)
--- NOTE | 2024-05-02 15:12 | CT_ITS ---
FINAL REPORT TECHNIQUE: Axial images through the abdomen and pelvis were performed without contrast.This study was performed with techniques to keep radiation doses as low as reasonably achievable, (ALARA). Individualized dose reduction techniques using automated exposure control or adjustment of mA and/or kV according to the patient's size were employed. CLINICAL HISTORY: Nausea vomiting diarrhea, syncope FINDINGS: ABDOMEN: The lung bases demonstrate subpleural groundglass opacities in the right lower lobe which could be infectious or inflammatory. The heart size is normal. The liver is homogeneous. Gallbladder is present. The spleen and pancreas are normal. No adrenal mass is identified. The aorta is normal in caliber. There is no significant free fluid or adenopathy. There is no nephrolithiasis. There are renal vascular calcifications. Mild bilateral hydronephrosis is seen without obstructing stone. There is a right renal lesion, which is not a simple cyst, which could represent a hemorrhagic or proteinaceous cyst. GI tract demonstrates fluid-filled small bowel loops which could be seen with enteritis. There is no small bowel obstruction. PELVIS: The appendix is normal. There is diverticulosis without evidence of diverticulitis. Uterus likely contains calcified fibroids. The urinary bladder is distended. There is no significant free fluid or adenopathy. No acute osseous abnormality is seen. IMPRESSION: Mild bilateral hydronephrosis likely related to distended urinary bladder. Fluid-filled small bowel loops which can be seen with enteritis. Probable proteinaceous or hemorrhagic right renal cyst. Reviewed, Interpreted and Dictated by Veronica Lozano MD Transcribed by Erna Fatima Authenticated and [facility]
[2024-05-02 15:19] LABS: Magnesium < 0.2 mg/dl (1.6-2.3)
--- NOTE | 2024-05-02 15:19 | PC.NURSE ---
CRITICAL MAG LESS THAN 0.2 RECEIVED FROM [facility] IN LAB. PT NAME AND R/V. DR ALVARADO NOTIFIED
[2024-05-02 15:49] LABS: Microscopic, Urine URINE MICROSCOPIC (MICROSCOPIC)
[2024-05-02 15:52] LABS: Appearance,Urine CLEAR (Clear); Bilirubin,Urine Negative (Negative); Blood, Urine TRACE-I (Negative); Color,Urine YELLOW (Yellow); Glucose,Urine (UA) Negative (Negative); Ketones,Urine Negative (Negative); Leukocyte Esterase,Urine Negative (Negative); Nitrate,Urine Negative (Negative); PH,Urine 5.5 (5.0-8.5); Protein,Urine Negative (Negative); Urobilinogen,Urine 0.2 EU/dl (0.2)
[2024-05-02 16:04] LABS: RBC,Urine Occasional #/hpf (0-3); Squamous Epithelial Cell,Urine Occasional #/hpf (0-5); Yeast,Urine 2+ /lpf
[2024-05-02 16:34] LABS: Adenovirus,PCR Not Detected (NotDetected); Bordetella Pertussis Not Detected (NotDetected); Chlamydophila Pneumoniae, PCR Not Detected (NotDetected); Coronavirus 19, PCR Not Detected (NotDetected); Coronavirus 229E Not Detected (NotDetected); Coronavirus NL63 Not Detected (NotDetected); Coronavirus OC43 Not Detected (NotDetected); Coronovirus HKU1,PCR Not Detected (NotDetected); Human Metapneumovirus Not Detected (NotDetected); Influenza A, PCR Not Detected (NotDetected); Influenza AH1, 2009 Not Detected (NotDetected); Influenza AH1, PCR Not Detected (NotDetected); Influenza AH3,PCR Not Detected (NotDetected); Influenza B, PCR Not Detected (NotDetected); Mycoplasma Pneumoniae, PCR Not Detected (NotDetected); Parainfluenza 1, PCR Not Detected (NotDetected); Parainfluenza 2, PCR Not Detected (NotDetected); Parainfluenza 3, PCR Not Detected (NotDetected); Parainfluenza 4, PCR Not Detected (NotDetected); Respiratory Syncytial Virus Not Detected (NotDetected); Rhinovirus/Enterovirus Not Detected (NotDetected)
--- NOTE | 2024-05-02 17:19 | PC.NURSE ---
This pt was put on the Zoll Monitor at this time per Dr Herron
[2024-05-02] MEDS: MAGNESIUM SULFATE IN WATER 2 GM/50 ML PIGGYBACK IV ×2 (17:27→18:40)
[2024-05-02] MEDS: CALCIUM GLUC IN NACL, ISO-OSM 2 GM/100 ML BAG IV (17:28)
[2024-05-02 17:55] LABS: Troponin I 0.02 ng/ml (0.00-0.034)
[2024-05-02 17:56] LABS: Chloride 115 mmol/L (98-107); Sodium 143 mmol/L (136-145)
[2024-05-02 17:57] LABS: Potassium 5.3 mmoL/L (3.5-5.1)
[2024-05-02 17:59] LABS: Alanine Aminotransferase 10 U/L (12-78); Albumin Level 3.4 g/dl (3.5-5.0); Albumin/Globulin Ratio 1.3 (1.1-1.8); Alkaline Phosphatase 51 U/L (38-126); Anion Gap 14.3 mEq/L (5-15); Aspartate Amino Transferase 21 U/L (14-36); Bilirubin,Total 0.3 mg/dl (0.2-1.3); Blood Urea Nitrogen 55 mg/dl (7-17); Carbon Dioxide 19 mmol/L (22.0-30.0); Creatinine Clearance Estimated 13 mL/min (50-200); Estimated Glomerular Filt Rate 14 ml/min (>60); GFR (African American) 17 ML/MIN (>60); Globulin 2.7 g/dL (1.3-3.2); Glucose 82 mg/dl (74-100); Total Protein,Serum 6.1 g/dl (6.3-8.2)
[2024-05-02 18:41] LABS: Calcium 5.5 mg/dl (8.4-10.2)
--- NOTE | 2024-05-02 18:44 | PC.NURSE ---
CRITICAL LABS RECEIVED FROM LAB MAG LESS THAN 0.2, CALCIUM 5.5. PT NAME AND R/V. DR PERSAUD NOTIFIED
[2024-05-02 18:53] LABS: Magnesium < 0.2 mg/dl (1.6-2.3)
--- NOTE | 2024-05-02 19:15 | PC.NURSE ---
Discussed with JA Preston that patient is still hypotensive after fluids. Discussed starting pressor prior to admission since patient is unstable at this time.
--- NOTE | 2024-05-02 19:18 | PC.NURSE ---
Assumed care for this patient, upon assessment, patient completing 2nd liter bolus of fluids. Spoke with ER provider, Thomas LILLY regarding patient's blood pressures remainin with MAPs in the 40s at this time. Discussed with this provider the need for vasopressor, patient is admitted at this time for ICU level of care. Orders received.
--- NOTE | 2024-05-02 19:32 | PC.NURSE ---
Report called to Arabella Anderson RN; Awaiting patient's BP to stabilize and then will transfer to ICU.
--- NOTE | 2024-05-02 19:35 | P.HP_ITS ---
History of Present Illness *Admission Date: 05/02/24 *Reason for visit:: Weakness, nausea, vomiting, diarrhea *History of present illness: Really nice patient with past medical history of CAD, arrhythmia with pacemaker, anxiety, history of blood clots on Eliquis, CHF on Entresto, CKD stage IV. Patient presents complaining of chills for several weeks. Patient also complains of nausea, vomiting, diarrhea, worsening weakness over past 3 days. States she suffers from 8-9 episodes of vomiting per day over the past 2 weeks. Also states she suffered from at least 2-3 episodes of diarrhea over the past 3 days. Stated today when she attempted to get up out of chair, legs became weak, and she fell to the ground. Patient then presented to emergency room for evaluation. Patient's magnesium found to be 0.02. Given 4 g IV magnesium in emergency room. Also given 2 g IV calcium gluconate. States she is never needed dialysis but my machine sign writer says I might 1 day. Lives with her brother at baseline. BUN 58, creatinine 3.91. Patient's blood pressure in emergency room 95/42. Complaining of acute left foot pain after fall. CT abdomen/pelvis shows enteritis. [facility] Disclaimer: The information contained in this section may have been updated after the patient was seen, as this information can be updated by other users. Medical History COPD (chronic obstructive pulmonary disease) Back Pain Patient states that the oxycodone has dramatically helped her back pain. We will continue with the current dose. PDMP and urine screens have been unremarkable except for the THC in the past. Black stools Sepsis Left foot pain Acquired hammer toes of both feet Acquired hallux valgus of left foot Incurved toenail Neuropathy Callus of foot Primary osteoarthritis of both feet Fatigue Dizziness Near syncope Symptomatic bradycardia Bradycardia Abdominal pain Ischemic colitis CHF (congestive heart failure) Non-STEMI (non-ST elevated myocardial infarction) Atrial fibrillation with rapid ventricular response Acute renal failure Dehydration Urinary tract infection Sepsis CKD (chronic kidney disease) Diarrhea Dehydration DONNIE (acute kidney injury) COVID-19 Sinus bradycardia Viral cardiomyopathy Elevated white blood cell count, unspecified Renal insufficiency Takotsubo cardiomyopathy Elevated left ventricular end-diastolic pressure (LVEDP) Gastroenteritis ST elevation CT (STEMI) ADIEL (obstructive sleep apnea) TIA (transient ischemic attack) Facial droop Atypical angina HTN (hypertension) Edema Tobacco dependence syndrome Abnormal EKG Chest pain Overweight (BMI 25.0-29.9) Trapezius muscle strain Pre-ulcerative calluses Lumbar disc disease with radiculopathy Lumbar foraminal stenosis Lumbar spondylosis Anxiety Dizziness Angina pectoris History of CVA (cerebrovascular accident) Solitary lung nodule Palpitations Dyspnea Tobacco user HLD (hyperlipidemia) HHD (hypertensive heart disease) Mitral valve regurgitation CAD (coronary artery disease) Surgical History Presence of cardiac pacemaker Family History Other No significant family history Social History Smoking Status: Current every day smoker tobacco type: cigarettes packs per day: 1 second hand exposure: Yes alcohol intake: never substance use type: denies use current occupational status: unemployed Travel in the last 8 weeks: None household members: family housing: house current occupational exposures/hazards: No caffeine: Yes Review of Systems Review of Systems Review of systems:: pertinent systems reviewed and negative unless documented below Constitutional Constitutional: Reports system reviewed and no additional complaints, except as documented Meds Home Medications and Allergies Home Medications Medication Instructions Recorded Confirmed Type albuterol sulfate 90 mcg/actuation 2 puff inhalation Q6HP PRN 11/06/23 04/07/24 History aerosol inhaler Shortness Of Breath docusate sodium 100 mg capsule 100 mg PO DAILY #30 caps 11/11/23 04/07/24 Rx (Colace) hydrocortisone 2.5 % topical cream 1 applic topical DAILY PRN itching 12/01/23 04/07/24 Rx #30 grams estradiol 0.01% (0.1 mg/gram) See Rx Instructions vaginal 12/28/23 04/07/24 Rx vaginal cream .COMPLEX #42.5 grams mirabegron 50 mg tablet,extended 50 mg PO DAILY #30 tabs 12/28/23 04/07/24 Rx release 24 hr escitalopram oxalate 20 mg tablet 20 mg PO DAILY MOOD #90 tabs 12/29/23 04/07/24 Rx oxybutynin chloride 10 mg 10 mg PO DAILY 90 days #180 tabs 12/30/23 04/07/24 Rx tablet,extended release 24 hr metoprolol succinate 25 mg See Rx Instructions .Route 02/11/24 04/07/24 Rx tablet,extended release 24 hr .COMPLEX #30 tabs loratadine 10 mg tablet See Rx Instructions .Route 02/15/24 04/07/24 Rx .COMPLEX #30 tabs spironolactone 100 mg tablet See Rx Instructions .Route 02/15/24 04/07/24 Rx .COMPLEX #30 tabs atorvastatin 20 mg tablet See Rx Instructions .Route 03/02/24 04/07/24 Rx .COMPLEX #90 tabs omeprazole 20 mg capsule,delayed See Rx Instructions .Route 03/10/24 04/07/24 Rx release .COMPLEX acid reflux #90 caps apixaban 5 mg tablet (Eliquis) 5 mg PO DAILY 90 days #90 tabs 03/16/24 04/07/24 Rx furosemide 40 mg tablet 40 mg PO DAILY 90 days #90 tabs 03/16/24 04/07/24 Rx sacubitril 24 mg-valsartan 26 mg See Rx Instructions .Route 03/24/24 04/07/24 Rx tablet (Entresto) .COMPLEX #60 tabs cariprazine 1.5 mg capsule See Rx Instructions .Route 04/08/24 Rx (Vraylar) .COMPLEX #90 caps promethazine 25 mg tablet 25 mg PO Q8H PRN cough #30 tabs 04/20/24 Rx gabapentin 400 mg capsule 400 mg PO TID #90 caps 04/29/24 Rx oxycodone 10 mg tablet 10 mg PO QID MODERATE TO SEVERE 04/29/24 Rx PAIN 30 days #120 tabs New Prescriptions to Start Prescriptions: Allergies Allergy/AdvReac Type Severity Reaction Status Date / Time acetaminophen Allergy Unknown Unknown Verified 04/07/24 11:53 [From DARVOCET-N] allergy reaction codeine [CODEINE] Allergy Unknown Unknown Verified 04/07/24 11:53 allergy reaction propoxyphene Allergy Unknown Unknown Verified 04/07/24 11:53 [From DARVOCET-N] allergy reaction tomato AdvReac Mild Gastrointestinal Verified 04/07/24 11:53 Upset Exam Data for Last 24 hours Vital signs and Labs for Last 24 Hours: Pulse Resp BP Pulse Ox O2 Del Method 60 12 91/51 L 95 Room Air 05/02/24 17:30 05/02/24 17:30 05/02/24 17:30 05/02/24 17:30 05/02/24 17:30 Laboratory Results - last 24 hr 05/02/24 14:30: WBC 10.3, RBC 3.85 L, Hgb 11.0 L, Hct 33.7 L, MCV 87.5, MCH 28.4, MCHC 32.5, RDW 14.3, Plt Count 206, MPV 11.4 H, Neut % (Auto) 76.0, Lymph % (Auto) 16.6, [place] % (Auto) 4.1, Eos % (Auto) 2.8, Baso % (Auto) 0.6, Neut # (Auto) 7.9 H, Lymph # (Auto) 1.7, [place] # (Auto) 0.4, Eos # (Auto) 0.3, Baso # (Auto) 0.1, Sodium 142, Potassium 5.1, Chloride 113 H, Carbon Dioxide 19 L, Anion Gap 15.1 H, BUN 58 H, Creatinine 3.90 H, Estimated Creat Clear 11, Estimated GFR 11 L*, Est GFR ( Amer) 14 L*, Glucose 97, Calcium 5.7 L, Magnesium < 0.2 L, Total Bilirubin 0.4, AST 24, ALT 9 L, Alkaline Phosphatase 57, Troponin I 0.02, Total Protein 7.0, Albumin 4.0, Globulin 3.0, Albumin/Globulin Ratio 1.3 05/02/24 14:50: VBG pH 7.26 L, VBG pCO2 43.3, VBG pO2 59.0 H, VBG HCO3 19.0 L, VBG Total CO2 20.3 L, VBG O2 Saturation 85.2 H, VBG Base Excess -8.1 L, VBG Lact ic Acid 1.7 05/02/24 15:40: Urine Color Yellow, Urine Appearance Clear, Urine pH 5.5, Ur Specific [place] 1.020, Urine Protein Negative, Urine Glucose (UA) Negative, Urine Ketones Negative, Urine Blood Trace-i, Urine Nitrate Negative, Urine Bilirubin Negative, Urine Urobilinogen 0.2, Ur Leukocyte Esterase Negative, Urine RBC Occasional, Urine WBC None, Ur Squamous Epith Cells Occasional, Urine Bacteria None, Urine Yeast 2+ 05/02/24 17:20: Sodium 143, Potassium 5.3 H, Chloride 115 H, Carbon Dioxide 19 L , Anion Gap 14.3, BUN 55 H, Creatinine 3.30 H, Estimated Creat Clear 13, Estimated GFR 14 L*, Est GFR ( Amer) 17 L* D, Glucose 82, Calcium 5.5 L, Magnesium < 0.2 L, Total Bilirubin 0.3, AST 21, ALT 10 L, Alkaline Phosphatase 51, Troponin I 0.02, Total Protein 6.1 L, Albumin 3.4 L D, Globulin 2.7, Albumin/Globulin Ratio 1.3 I & O for Last 24 hours: Intake & Output 04/29/24 04/30/24 05/01/24 05/02/24 23:59 23:59 23:59 23:59 Weight 51.256 kg Radiology Reports for the Last 24 Hours: Ordering Physician: Yohannes Preston Date of Service: 05/02/24 Procedure(s): CT abdomen pelvis wo [facility] Accession Number(s): [id number] cc: Veronica Lozano MD; Akhil Horner DO; Yohannes Preston~ FINAL REPORT TECHNIQUE: Axial images through the abdomen and pelvis were performed without contrast.This study was performed with techniques to keep radiation doses as low as reasonably achievable, (ALARA). Individualized dose reduction techniques using automated exposure control or adjustment of mA and/or kV according to the patient's size were employed. CLINICAL HISTORY: Nausea vomiting diarrhea, syncope FINDINGS: ABDOMEN: The lung bases demonstrate subpleural groundglass opacities in the right lower lobe which could be infectious or inflammatory. The heart size is normal. The liver is homogeneous. Gallbladder is present. The spleen and pancreas are normal. No adrenal mass is identified. The aorta is normal in caliber. There is no significant free fluid or adenopathy. There is no nephrolithiasis. There are renal vascular calcifications. Mild bilateral hydronephrosis is seen without obstructing stone. There is a right renal lesion, which is not a simple cyst, which could represent a hemorrhagic or proteinaceous cyst. GI tract demonstrates fluid-filled small bowel loops which could be seen with enteritis. There is no small bowel obstruction. PELVIS: The appendix is normal. There is diverticulosis without evidence of diverticulitis. Uterus likely contains calcified fibroids. The urinary bladder is distended. There is no significant free fluid or adenopathy. No acute osseous abnormality is seen. IMPRESSION: Mild bilateral hydronephrosis likely related to distended urinary bladder. Fluid-filled small bowel loops which can be seen with enteritis. Probable proteinaceous or hemorrhagic right renal cyst. Constitutional Constitutional: mild distress, cachectic and disheveled *Routine HEENT Exam Head: Present normocephalic Eye: Present EOMI and normal accommodation ENT: Present mucous membranes dry *Routine Neck Exam Neck: Present full ROM *Routine Respiratory Exam Respiratory: Present CTA bilaterally *Routine Cardiovascular Exam Cardiovascular: Present RRR and Normal S1 *Routine Abdominal Exam Abdominal: Present soft and normoactive bowel sounds *Routine Rectal Exam Rectal:: deferred *Routine Genitalia Exam Genitalia:: deferred *Routine Extremities Exam Extremities: Present full ROM and normal capillary refill Comments: Abrasions noted bilateral lower extremity pedal surfaces feet Assessment and Plan *Assessment and plan (1) Hypocalcemia: Status: Acute Category: Medical Code(s): E83.51 - Hypocalcemia (2) Hypomagnesemia: Status: Acute Category: Medical Code(s): E83.42 - Hypomagnesemia (3) Nausea vomiting and diarrhea: Status: Acute Category: Medical Code(s): R11.2 - Nausea with vomiting, unspecified; R19.7 - Diarrhea, unspecified (4) Acute kidney injury superimposed on CKD: Status: Acute Category: Medical Code(s): N17.9 - Acute kidney failure, unspecified; N18.9 - Chronic kidney disease, unspecified (5) Anemia: Status: Acute Qualifiers: Anemia type: unspecified type Qualified Code(s): D64.9 - Anemia, unspecified Category: Medical Code(s): D64.9 - Anemia, unspecified (6) Enteritis: Status: Acute Category: Medical Code(s): K52.9 - Noninfective gastroenteritis and colitis, unspecified Plan Severe hypomagnesemia: ? Given 4 g mag at time of admission, 2 g calcium gluconate. Will recheck magnesium level at 2300 and continue repletion. Mild bilateral hydronephrosis without obstruction: -Personally reviewed films, appears chronic in nature. Patient reports making adequate urine. Will follow closely during hospitalization. DONNIE superimposed on CKD: ? Patient has GFR of 11. Denies ever needing dialysis. Will cautiously hydrate patient overnight with normal saline 100 cc/h. Avoid using nephrotoxic drugs Sepsis possibly due to enteritis: ? Stool studies ordered, blood culture ordered, urine culture ordered. Patient currently started on IV cefepime/Flagyl. Follow inflammatory markers and adjust antibiotics accordingly. CAD with pacemaker: Continue home management CHF on Entresto: Cautious use of IV fluids during hospitalization History of blood clots on Eliquis: Continue Eliquis and watch patient closely for signs of bleeding PPx: Eliquis CODE STATUS full FEN: Cardiac
[2024-05-02] MEDS: NOREPINEPHRINE BITARTRATE/D5W 8 MG/250 ML PLAST..BAG 7.5 MG IV (19:38)
--- NOTE | 2024-05-02 20:00 | PC.NURSE ---
Called 2nd floor again to ask when they are coming to transport to meet goal time.
--- NOTE | 2024-05-02 20:32 | PC.NURSE ---
Patient arrived to floor via stretcher form ED at 20:11.
[2024-05-02] MEDS: 0.9 % SODIUM CHLORIDE 1000ML 1,000 ML 100 ML IV (20:49)
[2024-05-02] MEDS: CEFEPIME HCL 1 GM in 0.9 % SODIUM CHLORIDE 50 ML IV (20:56)
[2024-05-02 22:23] LABS: Troponin I 0.02 ng/ml (0.00-0.034)
[2024-05-02] MEDS: METRONIDAZ/SOD CHL 500 MG/100 ML PIGGYBACK 100 MG IV (22:28)
[2024-05-02] MEDS: MORPHINE 2MG/ML SYRINGE 2 MG IV (22:33)
[2024-05-02 23:30] LABS: Procalcitonin 0.048 ng/mL (0.0-2.0)
[2024-05-02 23:57] LABS: Magnesium 1.4 mg/dl (1.6-2.3)
[2024-05-03] VITALS (30 sets, daily range): BP systolic 77–156; BP diastolic 31–101; PULSE 60–80; RESP 18–24; TEMP 36.6–36.8; O2SAT 95–100; BMI 17.0
[2024-05-03] MEDS: MORPHINE 2MG/ML SYRINGE 2 MG IV ×3 (04:40→18:56)
[2024-05-03 06:22] LABS: Basophils # 0.1 K/mm3 (0-0.2); Basophils % 0.6 % (0.1-2.0); Eosinophils # 0.3 K/mm3 (0.0-0.4); Eosinophils % 3.8 % (0.1-12.0); Hematocrit 31.5 % (37.0-47.0); Hemoglobin 10.1 g/dL (12.2-16.2); Lymphocytes # 2.3 K/mm3 (0.7-4.5); Lymphocytes % 26.1 % (10-50); Mean Corpuscular HGB Conc 31.9 g/dL (31.8-35.4); Mean Corpuscular Hemoglobin 28.5 pg (27.0-31.2); Mean Corpuscular Volume 89.2 fl (81-99); Mean Platelet Volume 11.2 fl (7.4-10.4); Monocytes # 0.5 K/mm3 (0.1-1.0); Monocytes % 5.9 % (1.7-9.3); Neutrophils # 5.6 K/mm3 (1.8-7.8); Neutrophils % 63.5 % (37.0-80.0); Platelet Count 211 K/mm3 (142-424); Red Blood Count 3.54 M/mm3 (4.20-5.40); Red Cell Distribution Width 14.4 % (11.5-17.5); White Blood Count 8.7 K/mm3 (4.8-10.8)
[2024-05-03] MEDS: METRONIDAZ/SOD CHL 500 MG/100 ML PIGGYBACK 100 MG IV ×3 (06:22→22:14)
[2024-05-03 06:44] LABS: Lactic Acid 0.7 mmol/L (0.7-2.1)
[2024-05-03 06:47] LABS: Alanine Aminotransferase 9 U/L (12-78); Albumin Level 3.3 g/dl (3.5-5.0); Albumin/Globulin Ratio 1.3 (1.1-1.8); Alkaline Phosphatase 66 U/L (38-126); Anion Gap 9.6 mEq/L (5-15); Aspartate Amino Transferase 22 U/L (14-36); Bilirubin,Total 0.5 mg/dl (0.2-1.3); Blood Urea Nitrogen 43 mg/dl (7-17); Calcium 6.6 mg/dl (8.4-10.2); Carbon Dioxide 23 mmol/L (22.0-30.0); Chloride 114 mmol/L (98-107); Creatinine Clearance Estimated 15 mL/min (50-200); Estimated Glomerular Filt Rate 21 ml/min (>60); GFR (African American) 25 ML/MIN (>60); Globulin 2.6 g/dL (1.3-3.2); Glucose 100 mg/dl (74-100); Magnesium 1.3 mg/dl (1.6-2.3); Phosphorous 3.6 mg/dl (2.5-4.5); Potassium 4.6 mmoL/L (3.5-5.1); Sodium 142 mmol/L (136-145); Total Protein,Serum 5.9 g/dl (6.3-8.2)
[2024-05-03] MEDS: CALCIUM GLUC IN NACL, ISO-OSM 1 GM/50 ML BAG IV (08:17)
[2024-05-03] MEDS: CITALOPRAM 40MG TABLET 40 MG PO (08:20)
[2024-05-03] MEDS: DOCUSATE SODIUM 100 MG CAPSULE PO (08:21)
[2024-05-03] MEDS: PANTOPRAZOLE 40MG TABLET 40 MG PO (08:21)
[2024-05-03] MEDS: APIXABAN 5MG TABLET 2.5 MG PO ×2 (08:21→21:32)
[2024-05-03] MEDS: 0.9 % SODIUM CHLORIDE 1000ML 1,000 ML 100 ML IV (08:22)
[2024-05-03] MEDS: MAGNESIUM SULFATE IN WATER 2 GM/50 ML PIGGYBACK IV ×2 (09:22→20:31)
[2024-05-03] MEDS: CEFEPIME HCL 1 GM in 0.9 % SODIUM CHLORIDE 50 ML IV ×2 (09:23→21:34)
[2024-05-03] MEDS: OXYCODONE 5MG IMMEDIATE RELEASE TABLET 5 MG PO ×3 (11:31→23:26)
--- NOTE | 2024-05-03 12:00 | PC.NURSE ---
LEVO DRIP PLACED ON STANDBY AT THIS TIME DUE TO BP 122/59.
--- NOTE | 2024-05-03 12:08 | EXP.ACUTE.PN ---
Subjective *Date: 05/03/24 *Time: 16:22 Interval history: Patient still shaky today. Denies any chest pain or shortness of breath. No nausea or vomiting or diarrhea since admission. Still requiring vasopressors. Blood pressure remains soft. Significant lab disturbances this morning. On room air with appropriate saturations. Medical Exam Vital signs and Labs for Last 24 Hours: Vital Signs Temp Pulse Pulse Resp BP BP Pulse Ox 05/03/24 11:45 100 05/03/24 11:00 80 20 122/52 L 98 05/03/24 10:56 05/03/24 09:45 63 18 98/63 L 96 05/03/24 09:00 60 20 109/58 L 97 05/03/24 08:53 05/03/24 08:52 05/03/24 08:15 99 05/03/24 08:00 60 05/03/24 08:00 97.9 F 05/03/24 07:45 72 22 132/40 L 99 05/03/24 07:00 05/03/24 07:00 66 20 90/42 L 95 05/03/24 06:00 63 18 114/58 L 97 05/03/24 05:00 05/03/24 05:00 63 18 100/52 L 95 05/03/24 04:19 60 100/53 L 05/03/24 04:00 60 05/03/24 04:00 98 F 05/03/24 04:00 98 05/03/24 04:00 60 24 81/44 L 96 05/03/24 03:00 05/03/24 03:00 60 22 121/101 H 98 05/03/24 02:00 60 22 93/49 L 96 05/03/24 01:00 05/03/24 01:00 60 20 111/54 L 97 05/03/24 00:05 96 05/03/24 00:00 97.9 F 05/03/24 00:00 60 05/03/24 00:00 60 23 98/53 L 97 05/02/24 23:00 05/02/24 23:00 77 18 83/47 L 97 05/02/24 22:00 60 18 96/50 L 99 05/02/24 21:00 05/02/24 21:00 60 18 104/47 L 96 05/02/24 20:54 98.4 F 64 16 114/48 L 100 05/02/24 20:50 106 H 20 135/75 100 05/02/24 20:39 60 05/02/24 20:24 66 20 131/69 84 L 05/02/24 20:00 98 05/02/24 19:55 62 18 103/43 L 95 05/02/24 19:50 60 17 105/44 L 95 05/02/24 19:46 59 L 14 114/46 L 97 05/02/24 19:44 97.7 F 60 14 114/46 L 05/02/24 19:40 60 13 83/33 L 97 05/02/24 19:35 61 16 89/36 L 96 05/02/24 19:30 59 L 14 82/33 L 94 L 05/02/24 19:26 60 18 85/29 L 98 05/02/24 19:20 60 18 84/33 L 98 05/02/24 19:15 60 20 80/29 L 98 05/02/24 19:10 60 19 82/31 L 98 05/02/24 19:05 61 17 69/31 L 98 05/02/24 19:00 97.7 F 62 14 78/32 L 94 L 05/02/24 18:55 60 14 73/31 L 95 05/02/24 18:50 60 16 74/33 L 95 05/02/24 18:45 60 16 75/29 L 95 05/02/24 18:43 59 L 14 70/33 L 94 L 05/02/24 18:36 59 L 17 57/29 L 96 05/02/24 18:34 60 17 70/30 L 95 05/02/24 18:30 60 17 61/28 L 95 05/02/24 17:30 60 12 91/51 L 95 05/02/24 17:00 59 L 95/42 L 95 05/02/24 16:30 59 L 93/42 L 95 05/02/24 16:00 62 97/48 L 96 05/02/24 15:00 62 102/45 L 95 05/02/24 14:17 98.4 F 05/02/24 14:17 63 16 95/45 L 98 O2 Del Method O2 Flow Rate 05/03/24 11:45 Room Air 05/03/24 11:00 Room Air 05/03/24 10:56 Room Air 05/03/24 09:45 Room Air 05/03/24 09:00 Room Air 05/03/24 08:53 Room Air 05/03/24 08:52 Room Air 05/03/24 08:15 Room Air 05/03/24 08:00 05/03/24 08:00 05/03/24 07:45 Room Air 05/03/24 07:00 Room Air 05/03/24 07:00 Room Air 05/03/24 06:00 Room Air 05/03/24 05:00 Room Air 05/03/24 05:00 Room Air 05/03/24 04:19 05/03/24 04:00 05/03/24 04:00 05/03/24 04:00 Room Air 05/03/24 04:00 Room Air 05/03/24 03:00 Room Air 05/03/24 03:00 Room Air 05/03/24 02:00 Room Air 05/03/24 01:00 Room Air 05/03/24 01:00 Room Air 05/03/24 00:05 Room Air 05/03/24 00:00 05/03/24 00:00 05/03/24 00:00 Room Air 05/02/24 23:00 Room Air 05/02/24 23:00 Room Air 05/02/24 22:00 Nasal Cannula 1 05/02/24 21:00 Nasal Cannula 1 05/02/24 21:00 Nasal Cannula 1 05/02/24 20:54 Nasal Cannula 2 05/02/24 20:50 Nasal Cannula 2 05/02/24 20:39 05/02/24 20:24 Room Air 05/02/24 20:00 Nasal Cannula 2 05/02/24 19:55 Room Air 05/02/24 19:50 05/02/24 19:46 05/02/24 19:44 Room Air 05/02/24 19:40 05/02/24 19:35 05/02/24 19:30 Room Air 05/02/24 19:26 Room Air 05/02/24 19:20 Room Air 05/02/24 19:15 Room Air 05/02/24 19:10 Room Air 05/02/24 19:05 Room Air 05/02/24 19:00 Room Air 07/15/24 18:55 Room Air 05/02/24 18:50 Room Air 05/02/24 18:45 Room Air 05/02/24 18:43 Room Air 05/02/24 18:36 Room Air 05/02/24 18:34 Room Air 05/02/24 18:30 Room Air 05/02/24 17:30 Room Air 05/02/24 17:00 05/02/24 16:30 05/02/24 16:00 Room Air 05/02/24 15:00 Room Air 05/02/24 14:17 05/02/24 14:17 Room Air Intake and Output 05/02/24 05/03/24 05/03/24 23:59 07:59 15:59 Intake Total 19.500 / 0086.026 7193.062 / 1705.437 289.375 / 1705.437 Output Total 270 / 670 400 / 670 Balance 19.500 / 1344.190 7926.062 / 1035.437 -110.625 / 1035.437 Intake: Intake, Oral Amount 240 / 240 Intake, Total IV Amount 19.500 / 7685.680 5524.062 / 1465.437 49.375 / 1465.437 0.9 % Sodium Chloride 1000ML 990 / 990 500 ml @ 999 mls/hr IV .Q31M ONE Rx#:[id number] Calcium Gluc in NaCl, Iso-Osm 2 100 / 100 gm In 100 ml @ 50 mls/hr IV ONCE ONE Rx#:[id number] Cefepime HCl 1 gm In 0.9 % 100 / 100 Sodium Chloride 50 ml @ 100 mls /hr IV Q12H [facility] Rx#:[id number] Magnesium Sulfate in Water 2 gm 50 / 50 In 50 ml @ 50 mls/hr IV ONCE ONE Rx#:[id number] Magnesium Sulfate in Water 2 gm 50 / 50 In 50 ml @ 50 mls/hr IV ONCE ONE Rx#:[id number] Metronidaz/Sod Chl 500 mg In 100 / 100 100 ml @ 100 mls/hr IV Q8H [facility] Rx#:[id number] Output: Output, Urine Amount 270 / 670 400 / 670 Other: Number of Unmeasured Voids 1 Weight 42.1 kg 42.1 kg Patient Weight 05/03/24 23:59 Weight 42.1 kg Laboratory Results - last 24 hr 05/02/24 14:30: WBC 10.3, RBC 3.85 L, Hgb 11.0 L, Hct 33.7 L, MCV 87.5, MCH 28.4, MCHC 32.5, RDW 14.3, Plt Count 206, MPV 11.4 H, Neut % (Auto) 76.0, Lymph % (Auto) 16.6, Parke % (Auto) 4.1, Eos % (Auto) 2.8, Baso % (Auto) 0.6, Neut # (Auto) 7.9 H, Lymph # (Auto) 1.7, Parke # (Auto) 0.4, Eos # (Auto) 0.3, Baso # (Auto) 0.1, Sodium 142, Potassium 5.1, Chloride 113 H, Carbon Dioxide 19 L, Anion Gap 15.1 H, BUN 58 H, Creatinine 3.90 H, Estimated Creat Clear 11, Estimated GFR 11 L*, Est GFR ( Amer) 14 L*, Glucose 97, Calcium 5.7 L, Magnesium < 0.2 L, Total Bilirubin 0.4, AST 24, ALT 9 L, Alkaline Phosphatase 57, Troponin I 0.02, Total Protein 7.0, Albumin 4.0, Globulin 3.0, Albumin/Globulin Ratio 1.3 05/02/24 14:50: VBG pH 7.26 L, VBG pCO2 43.3, VBG pO2 59.0 H, VBG HCO3 19.0 L, VBG Total CO2 20.3 L, VBG O2 Saturation 85.2 H, VBG Base Excess -8.1 L, VBG Lactic Acid 1.7 05/02/24 15:13: Chlamy pneumoniae PCR Not detected, Adenovirus (PCR) Not detected, B. pertussis DNA (PCR) Not detected, Coronavirus OC43 (PCR) Not detected, Coronavirus HKU1 (PCR) Not detected, Coronavirus 229E (PCR) Not detected, SARS-CoV-2 (PCR) Not detected, Coronavirus NL63 (PCR) Not detected, Human Metapneumovir PCR Not detected, Influenza A (H1) PCR Not detected, Influ A (H1N1/09) PCR Not detected, Influenza A (H3) PCR Not detected, Influenza Type A (PCR) Not detected, Influenza Type B (PCR) Not detected, M. pneumoniae (PCR) Not detected, Parainfluenza 1 (PCR) Not detected, Parainfluenza 2 (PCR) Not detected, Parainfluenza 3 (PCR) Not detected, Parainfluenza 4 (PCR) Not detected, RSV (PCR) Not detected, Entero/Rhino (PCR) Not detected 05/02/24 15:40: Urine Color Yellow, Urine Appearance Clear, Urine pH 5.5, Ur Specific [place] 1.020, Urine Protein Negative, Urine Glucose (UA) Negative, Urine Ketones Negative, Urine Blood Trace-i, Urine Nitrate Negative, Urine Bilirubin Negative, Urine Urobilinogen 0.2, Ur Leukocyte Esterase Negative, Urine RBC Occasional, Urine WBC None, Ur Squamous Epith Cells Occasional, Urine Bacteria None, Urine Yeast 2+ 05/02/24 17:20: Sodium 143, Potassium 5.3 H, Chloride 115 H, Carbon Dioxide 19 L, Anion Gap 14.3, BUN 55 H, Creatinine 3.30 H, Estimated Creat Clear 13, Estimated GFR 14 L*, Est GFR ( Amer) 17 L* D, Glucose 82, Calcium 5.5 L, Magnesium < 0.2 L, Total Bilirubin 0.3, AST 21, ALT 10 L, Alkaline Phosphatase 51, Troponin I 0.02, Total Protein 6.1 L, Albumin 3.4 L D, Globulin 2.7, Albumin/Globulin Ratio 1.3 05/02/24 20:45: Troponin I 0.02, C-Reactive Protein 5.0 H, Procalcitonin 0.048 05/02/24 23:25: Magnesium 1.4 L D 05/03/24 05:55: WBC 8.7, RBC 3.54 L, Hgb 10.1 L, Hct 31.5 L, MCV 89.2, MCH 28.5, MCHC 31.9, RDW 14.4, Plt Count 211, MPV 11.2 H, Neut % (Auto) 63.5, Lymph % (Auto) 26.1, Parke % (Auto) 5.9, Eos % (Auto) 3.8, Baso % (Auto) 0.6, Neut # (Auto) 5.6, Lymph # (Auto) 2.3, Parke # (Auto) 0.5, Eos # (Auto) 0.3, Baso # (Auto) 0.1, Sodium 142, Potassium 4.6, Chloride 114 H, Carbon Dioxide 23, Anion Gap 9.6, BUN 43 H, Creatinine 2.30 H D, Estimated Creat Clear 15, Estimated GFR 21 L, Est GFR ( Amer) 25 L D, Glucose 100 D, Lactate 0.7, Calcium 6.6 L, Phosphorus 3.6, Magnesium 1.3 L, Total Bilirubin 0.5, AST 22, ALT 9 L, Alkaline Phosphatase 66, Total Protein 5.9 L, Albumin 3.3 L, Globulin 2.6, Albumin/Globulin Ratio 1.3 I & O for Labs for Last 24 Hours: Intake & Output 04/30/24 05/01/24 05/02/24 05/03/24 23:59 23:59 23:59 23:59 Intake Total 19.500 / 6238.455 6435.437 / 1705.437 Output Total 670 / 670 Balance 19.500 / 3247.004 9576.437 / 1035.437 Weight 42.1 kg 42.1 kg Constitutional: Present mild distress, thin, chronically ill appearing and cooperative Head: Present atraumatic and normocephalic ENT: Present normal exam Respiratory: Present normal respiratory effort; Absent rhonchi, wheezes or crackles Cardiac: Present Reg Rate and Rhythm GI: Present soft and normal bowel sounds; Absent distention or tenderness Extremities: Present normal inspection and full ROM Skin: Present intact; Absent erythema Neuro: Present Resting Tremor, Grossly Intact, alert, awake, oriented x 3 and moves all extremities Assessment and Plan *Assessment and plan (1) Acute kidney injury superimposed on CKD: Status: Acute Category: Medical Code(s): N17.9 - Acute kidney failure, unspecified; N18.9 - Chronic kidney disease, unspecified (2) Hypocalcemia: Status: Acute Category: Medical Code(s): E83.51 - Hypocalcemia (3) Hypomagnesemia: Status: Acute Category: Medical Code(s): E83.42 - Hypomagnesemia (4) Nausea vomiting and diarrhea: Status: Acute Category: Medical Code(s): R11.2 - Nausea with vomiting, unspecified; R19.7 - Diarrhea, unspecified (5) Anemia: Status: Acute Qualifiers: Anemia type: unspecified type Qualified Code(s): D64.9 - Anemia, unspecified Category: Medical Code(s): D64.9 - Anemia, unspecified (6) Enteritis: Status: Acute Category: Medical Code(s): K52.9 - Noninfective gastroenteritis and colitis, unspecified Plan 68-year-old female with DONNIE and severe electrolyte disturbances. Continues to require patient management. Aggressive repletion of magnesium and calcium today. Continues to have tremor. Still on norepinephrine for hypotension. Goal MAP greater than 65. Problems addressed as follows: DONNIE CKD 4 -Baseline creatinine between 1.7-2.3. Improved to 2.3 this morning. 3.9 on admission. Repeat CMP and magnesium ordered for this afternoon with CBC, CMP, magnesium ordered for the morning -Making urine. Caution with nephrotoxins Severe hypomagnesemia: Hypocalcemia ? Receiving significant magnesium replacement. 2 g ordered this morning. 2 g of calcium gluconate ordered this morning as well. Repeat labs this afternoon at 5 PM ordered -iCal pending -Potassium 4.6 this morning, magnesium 1.3, calcium 6.6, phosphorus 3.6. Mild bilateral hydronephrosis without obstruction: -chronic in nature. Patient reports making adequate urine. Will follow closely during hospitalization. Sepsis possibly due to enteritis: ? Stool studies ordered are negative -Continue to monitor blood cultures and urine culture - Patient currently started on IV cefepime/Flagyl. Follow inflammatory markers and adjust antibiotics accordingly. CAD with pacemaker: Holding blood pressure meds in the setting of hypotension including Lasix, metoprolol, Entresto, spironolactone History of blood clots on Eliquis: Continue Eliquis and watch patient closely for signs of bleeding PPx: Eliquis CODE STATUS full FEN: Cardiac
--- NOTE | 2024-05-03 13:26 | HMH.PHAINT1 ---
Pharmacy Intervention Comments: MEDICATION RECONCILIATION COMPLETED ON PATIENT USING EXTERNAL FILL HISTORY FROM PHARMACY. -MARGA LEE, [place]
[2024-05-03] MEDS: GABAPENTIN 400MG CAPSULE 400 MG PO ×2 (13:36→21:31)
--- NOTE | 2024-05-03 14:10 | HMH.PTEV ---
Physical Therapy Evaluation Rehab PT IP Evaluation Start: 05/03/24 13:40 Freq: .once Status: Active Protocol: Document 05/03/24 14:02 HELGA (Rec: 05/03/24 14:10 HELGA [email or web address]) Subjective/History History History Per H&P: Really nice patient with past medical history of CAD, arrhythmia with pacemaker , anxiety, history of blood clots on Eliquis, CHF on Entresto, CKD stage IV. Patient presents complaining of chills for several weeks. Patient also complains of nausea, vomiting, diarrhea, worsening weakness over past 3 days. States she suffers from 8-9 episodes of vomiting per day over the past 2 weeks. Also states she suffered from at least 2-3 episodes of diarrhea over the past 3 days. Stated today when she attempted to get up out of chair, legs became weak, and she fell to the ground. Patient then presented to emergency room for evaluation. Patient's magnesium found to be 0.02. Given 4 g IV magnesium in emergency room. Also given 2 g IV calcium gluconate. States she is never needed dialysis but my slip maker says I might 1 day. Lives with her brother at baseline. BUN 58, creatinine 3.91. Patient's blood pressure in emergency room 95/42. Complaining of acute left foot pain after fall. CT abdomen/pelvis shows enteritis. Subjective Subjective PLOF per pt report: Lives with brother and grandson in a single story mobile home. Pt has 4 JAY home with BHRs. IND with functional mobility and ADLs prior to admission. No prior AD use. Does not own a RW or cane. New diagnosis of cancer in past 12 No months? Rehab PT IP Eval Objective Appearance Patient Behavior Appropriate,Cooperative Patient Orientation Person,Situation Difficulty following instructions none Speech Pattern Clear Ambulation Patient Able to Ambulate Yes Ambulation Observation IP General Gait Pattern Observation Narrow Based Gait Ambulation Distance (feet) 20 Ambulation Assistive Device Rolling Walker Ambulation Ability Minimal x 1 (25% assist) Balance Ability to Arise Able, uses arms to help Sitting Balance Steady, safe Standing Balance Unsteady Transfers Bed Transfer Ability Supervision/Stand by Sit to Stand Bed Transfer Ability Contact Guard/Hand Hold Rehab PT IP prob,goals,plan Problems Date of Evaluation: 05/03/24 PT IP Problems Bed Mobility,Transfers,Gait, Balance,Safety Rehab Potential Rehab Potential Good Equipment Needs Assistive Devices Rolling / Wheeled Walker Plan PT Intervention Plan Bed Mobility,Transfers,Gait, Balance,Safety,Therapeutic Exercise Other Intervention Plan 1-2 times PT Plan Frequency Daily Duration LOS Discharge Goals Bed Transfer Ability Independent Sit to Stand Chair Transfer Ability Supervision/Stand by Ambulation Assistive Device Rolling Walker Ambulation Distance (feet) 25 Discharge Plan PT Discharge Plan Initial physical therapy evaluation performed. Patient presents below baseline at this time in functional mobility, transfers, gait, and strength. Pt ambulated to and from the bathroom. When ambulating without AD, pt required Min A and furniture to stabilize self. When given RW, pt linus'd improved safety awareness though she was still unsteady. Pt reports someone is always around to check-in on her at home and assist as needed. Pt would benefit from skilled PT while at [facility] to prevent further functional decline and maximize safety with mobility. Pt safe to d/c home when deemed medically necessary d/t current level of mobility, home set-up, and reported family support. PT recommending home health PT services to address deficits. Eval Complexity Eval Charge Codes 35986 - Moderate Complexity PHYSICIAN CERTIFICATION: I certify the specified therapy services for Yuridia Edwards are required, authorized, and reviewed every 30 days.
--- NOTE | 2024-05-03 14:12 | HMH.OTEV ---
OT Inpatient Evaluation Rehab OT IP Evaluation Start: 05/03/24 13:40 Freq: ONCE Status: Active Protocol: Document 05/03/24 14:05 [email or web address] (Rec: 05/03/24 14:12 ALEENA [id number]) Rehab OT IP Assessment Subjective History Really nice patient with past medical history of CAD, arrhythmia with pacemaker, anxiety, history of blood clots on Eliquis, CHF on Entresto, CKD stage IV. Patient presents complaining of chills for several weeks. Patient also complains of nausea, vomiting, diarrhea, worsening weakness over past 3 days. States she suffers from 8-9 episodes of vomiting per day over the past 2 weeks. Also states she suffered from at least 2-3 episodes of diarrhea over the past 3 days. Stated today when she attempted to get up out of chair, legs became weak, and she fell to the ground. Patient then presented to emergency room for evaluation. Patient's magnesium found to be 0.02. Given 4 g IV magnesium in emergency room. Also given 2 g IV calcium gluconate. States she is never needed dialysis but my device engineer says I might 1 day. Lives with her brother at baseline. BUN 58, creatinine 3.91. Patient's blood pressure in emergency room 95/42. Complaining of acute left foot pain after fall. CT abdomen/pelvis shows enteritis. Patient lives in 1 story home with 4-5 JAY with brother and grandson. Patient vebalize being independent with ADLs and fx'l mobility at home. FAmily assist with transportation as needed. Subjective I need to use the restroom. Instructed Patient on proper hand and foot placement to complete bed mobility from supine->sit @ EOB requiring SUP. Instructed Patient on proper hand and foot placement to complete sit->stand transfer requiring Min A due to unsteadiness on B LE. Instructed Patient on maneuver to restroom with usage of RW with Min A. LOB noted x1 with needing assist to recorrect. Patient completed toilet transfers, clothing mgt tr and hygiene with SBA. Left Patient sitting upright in bed with needs met at end of session. Objective Patient Orientation Person,Name,Age,Birthday,Year Right Upper Extremity Gross ROM WFL Left Upper Extremity Gross ROM WFL Bed Mobility bed mobility - supine/sit Assist Level Supervision/Stand by Transfer Training Sit/Stand Transfer,Sit/Stand/ Pivot Transfer Assist Level Minimal x 1 (25% assist) Chair Transfer Ability Minimal x 1 (25% assist) Chair Transfer Technique Sit to/from Ambulatory Chair Transfer Assistive Devices Rolling Walker Lower Body Dressing Ability Standby Assistance Performing Toilet Hygiene Ability Standby Assistance Overall Commode/Toilet Transfer Ability Minimal Assistance Commode/Toilet Transfer Technique Sit to/from Ambulatory Rehab OT IP prob,goals,plan Problems Date of Evaluation: 05/03/24 OT IP Problems Bed Mobility,Transfers,Balance ,Self care,Safety Rehab Potential Rehab Potential Good Equipment Needs Assistive Devices Rolling / Wheeled Walker Plan OT intervention Plan Bed Mobility,Transfers,Balance ,Self care,Safety,Therapeutic Exercise OT Plan Frequency Daily Duration LOS Discharge Goals Bed Mobility Ability Standby Assistance Sit to Stand Chair Transfer Ability Supervision/Stand by Chair Transfer Ability Supervision/Stand by Chair Transfer Technique Sit to/from Ambulatory Chair Transfer Assistive Devices Rolling Walker Discharge Plan OT Discharge Plan Refer patient back to home with recommendation of services. Patient to continue skilled OT IP services while here at [facility] til proper d/c. Eval Complexity Eval Charge Codes 27986 - Low Complexity PHYSICIAN CERTIFICATION: I certify the specified therapy services for Yuridia Edwards are required, authorized, and reviewed every 30 days.
[2024-05-03 17:23] LABS: Chloride 112 mmol/L (98-107); Sodium 141 mmol/L (136-145)
[2024-05-03 17:24] LABS: Potassium 4.9 mmoL/L (3.5-5.1)
[2024-05-03 17:26] LABS: Alanine Aminotransferase 10 U/L (12-78); Alkaline Phosphatase 81 U/L (38-126); Anion Gap 8.9 mEq/L (5-15); Aspartate Amino Transferase 23 U/L (14-36); Bilirubin,Total 0.3 mg/dl (0.2-1.3); Blood Urea Nitrogen 31 mg/dl (7-17); Carbon Dioxide 25 mmol/L (22.0-30.0); Creatinine Clearance Estimated 18 mL/min (50-200); Estimated Glomerular Filt Rate 25 ml/min (>60); GFR (African American) 30 ML/MIN (>60)
[2024-05-03 17:27] LABS: Albumin Level 3.3 g/dl (3.5-5.0); Albumin/Globulin Ratio 1.2 (1.1-1.8); Calcium 7.4 mg/dl (8.4-10.2); Globulin 2.7 g/dL (1.3-3.2); Glucose 88 mg/dl (74-100); Magnesium 1.7 mg/dl (1.6-2.3)
--- NOTE | 2024-05-03 18:11 | PC.NURSE ---
A&OX4. PT HAS TOLERATED RA WELL THROUGHOUT SHIFT. RESPIRATIONS REGULAR AND UNLABORED. LUNG SOUNDS CLEAR THROUGHOUT. NO COUGH NOTED. +2 PULSES NOTED THROUGHOUT. NO EDEMA NOTED. ACTIVE BOWEL SOUNDS HEARD IN ALL 4 QUADRANTS. SOFT AND NONTENDER ABDOMEN. NO BM THUS FAR. PT AWARE OF NEED FOR STOOL SAMPLE. PT VOIDS PER BEDPAN AND BATHROOM WITH ASSISTANCE X1. OCCASIONAL STRESS INCONTINENCE NOTED. PT MOVES AROUND INDEPENDENTLY IN BED. PT HAS REPORTED PAIN THREE TIMES THIS SHIFT THUS FAR DUE TO CHRONIC BACK PAIN. RECEIVED MORPHINE ONCE AND OXYCODONE X2. ON REASSESSMENT, PT STATED PAIN WAS DECREASED AND TOLERABLE. FAMILY DID BRING IN PT'S VRAYLAR. LOCKED IN OMNI. BED IN LOWEST POSITION. CALL LIGHT WITHIN REACH. VSS. PT IS ON LEVO AT 1MCG/MIN CURRENTLY TOLERATING WELL. BP NOTED AT 98/42. BED ALARM ON TO PROMOTE SAFETY SINCE PT HAS A HX OF FALLING AT HOME IN THE LAST 6 MONTHS PER PT.
[2024-05-03] MEDS: NOREPINEPHRINE BITARTRATE/D5W 8 MG/250 ML PLAST..BAG 3.75 MG IV (20:32)
[2024-05-03] MEDS: ATORVASTATIN 20MG TABLET 20 MG PO (21:32)
[2024-05-04] VITALS (28 sets, daily range): BP systolic 84–135; BP diastolic 39–64; PULSE 60–70; RESP 14–34; TEMP 36.7–36.9; O2SAT 93–100; BMI 17.0
[2024-05-04] MEDS: METRONIDAZ/SOD CHL 500 MG/100 ML PIGGYBACK 100 MG IV ×3 (06:12→21:35)
[2024-05-04 06:19] LABS: Basophils # 0.1 K/mm3 (0-0.2); Basophils % 0.8 % (0.1-2.0); Eosinophils # 0.5 K/mm3 (0.0-0.4); Eosinophils % 4.9 % (0.1-12.0); Hematocrit 31.8 % (37.0-47.0); Hemoglobin 10.2 g/dL (12.2-16.2); Lymphocytes # 2.1 K/mm3 (0.7-4.5); Lymphocytes % 22.9 % (10-50); Mean Corpuscular HGB Conc 31.9 g/dL (31.8-35.4); Mean Corpuscular Hemoglobin 28.5 pg (27.0-31.2); Mean Corpuscular Volume 89.2 fl (81-99); Mean Platelet Volume 11.3 fl (7.4-10.4); Monocytes # 0.6 K/mm3 (0.1-1.0); Monocytes % 6.9 % (1.7-9.3); Neutrophils % 64.5 % (37.0-80.0); Platelet Count 184 K/mm3 (142-424); Red Blood Count 3.57 M/mm3 (4.20-5.40); Red Cell Distribution Width 14.4 % (11.5-17.5); White Blood Count 9.2 K/mm3 (4.8-10.8)
[2024-05-04 06:31] LABS: Alanine Aminotransferase 9 U/L (12-78); Albumin Level 3.2 g/dl (3.5-5.0); Albumin/Globulin Ratio 1.2 (1.1-1.8); Alkaline Phosphatase 76 U/L (38-126); Anion Gap 8.6 mEq/L (5-15); Aspartate Amino Transferase 22 U/L (14-36); Bilirubin,Total 0.7 mg/dl (0.2-1.3); Blood Urea Nitrogen 23 mg/dl (7-17); Calcium 7.9 mg/dl (8.4-10.2); Carbon Dioxide 22 mmol/L (22.0-30.0); Chloride 113 mmol/L (98-107); Creatinine Clearance Estimated 25 mL/min (50-200); Estimated Glomerular Filt Rate 37 ml/min (>60); GFR (African American) 45 ML/MIN (>60); Globulin 2.7 g/dL (1.3-3.2); Glucose 92 mg/dl (74-100); Magnesium 1.7 mg/dl (1.6-2.3); Phosphorous 2.8 mg/dl (2.5-4.5); Potassium 4.6 mmoL/L (3.5-5.1); Sodium 139 mmol/L (136-145); Total Protein,Serum 5.9 g/dl (6.3-8.2)
[2024-05-04] MEDS: CALCIUM GLUC IN NACL, ISO-OSM 1 GM/50 ML BAG IV (08:17)
[2024-05-04] MEDS: CITALOPRAM 40MG TABLET 40 MG PO (08:18)
[2024-05-04] MEDS: GABAPENTIN 400MG CAPSULE 400 MG PO ×3 (08:18→20:09)
[2024-05-04] MEDS: APIXABAN 5MG TABLET 2.5 MG PO ×2 (08:18→20:09)
[2024-05-04] MEDS: DOCUSATE SODIUM 100 MG CAPSULE PO (08:18)
[2024-05-04] MEDS: PANTOPRAZOLE 40MG TABLET 40 MG PO (08:19)
[2024-05-04] MEDS: MAGNESIUM OXIDE 400MG TABLET 400 MG PO (08:21)
[2024-05-04] MEDS: CARIPRAZINE 1.5 MG 1.5 EACH PO (08:21)
[2024-05-04] MEDS: MAGNESIUM SULFATE IN WATER 2 GM/50 ML PIGGYBACK IV (09:10)
[2024-05-04] MEDS: OXYCODONE 5MG IMMEDIATE RELEASE TABLET 5 MG PO ×3 (09:31→20:09)
[2024-05-04] MEDS: NOREPINEPHRINE BITARTRATE/D5W 8 MG/250 ML PLAST..BAG 3.75 MG IV (09:33)
--- NOTE | 2024-05-04 10:15 | DIET.NUTRFU ---
Tomato Allergy: Saw patient today for food allergy clarification. Patient reports she can have tomatoes as a ingredient, like ketchup/spaghetti sauce and tomato soup but cannot eat fresh tomatoes they are too acidic and they cause GI distress. Kitchen aware
[2024-05-04] MEDS: CEFEPIME HCL 1 GM in 0.9 % SODIUM CHLORIDE 50 ML IV ×2 (10:31→20:09)
[2024-05-04] MEDS: MIDODRINE HCL 5 MG TABLET PO ×2 (12:19→20:09)
--- NOTE | 2024-05-04 13:14 | P.PN_ITS ---
Subjective *Date: 05/04/24 *Time: 13:18 Interval history: Patient feeling much better this morning. Denies significant shaking. No nausea or vomiting. Denies any diarrhea. Ambulating independently to the bathroom. On room air. Still necessitating norepinephrine to maintain MAP above 65. Medical Exam Vital signs and Labs for Last 24 Hours: Vital Signs Temp Pulse Pulse Resp BP Pulse Ox O2 Del Method 05/04/24 12:00 60 20 114/61 98 Room Air 05/04/24 11:15 Room Air 05/04/24 11:00 63 16 105/44 L 97 Room Air 05/04/24 10:00 60 18 135/45 L 98 Room Air 05/04/24 09:05 Room Air 05/04/24 09:00 60 18 87/42 L 98 Room Air 05/04/24 08:20 97 Room Air 05/04/24 08:00 60 05/04/24 08:00 60 18 89/45 L 97 Room Air 05/04/24 07:00 60 17 111/59 L 95 Room Air 05/04/24 06:00 60 28 H 100/52 L 95 Room Air 05/04/24 05:00 60 22 123/64 96 Room Air 05/04/24 04:00 98.0 F 05/04/24 04:00 100 Room Air 05/04/24 04:00 60 05/04/24 04:00 60 18 118/61 96 Room Air 05/04/24 03:00 60 22 116/47 L 94 L Room Air 05/04/24 02:00 60 25 H 108/52 L 93 L Room Air 05/04/24 01:00 60 20 121/58 L 100 Room Air 05/04/24 00:00 60 05/04/24 00:00 98.1 F 05/04/24 00:00 100 Room Air 05/04/24 00:00 60 23 115/54 L 100 Room Air 05/03/24 23:00 60 23 140/39 L 100 Room Air 05/03/24 22:00 60 20 79/45 L 100 Room Air 05/03/24 21:00 60 18 77/31 L 100 Room Air 05/03/24 20:00 69 05/03/24 20:00 100 Room Air 05/03/24 20:00 98.2 F 05/03/24 19:00 60 20 156/80 H 98 Room Air 05/03/24 18:53 Room Air 05/03/24 18:00 62 18 88/43 L 100 Room Air 05/03/24 17:00 65 20 102/43 L 96 Room Air 05/03/24 16:51 Room Air 05/03/24 16:51 Room Air 05/03/24 16:15 98 Room Air 05/03/24 16:00 98.0 F 05/03/24 16:00 60 18 98/42 L 98 Room Air 05/03/24 15:05 Room Air 05/03/24 15:00 60 20 107/48 L 97 Room Air 05/03/24 14:00 60 18 125/63 98 Room Air 05/03/24 13:15 62 18 83/37 L 97 Room Air Intake and Output 05/03/24 05/04/24 05/04/24 23:59 07:59 15:59 Intake Total 1608.107 / 3621.522 34.875 / 729.916 695.041 / 729.916 Output Total 600 / 1970 760 / 1560 800 / 1560 Balance 1008.107 / 1651.522 -725.125 / -830.084 -104.959 / -830.084 Intake: Intake, Oral Amount 480 / 1020 480 / 480 Intake, Total IV Amount 1128.107 / 2601.522 34.875 / 249.916 215.041 / 249.916 0.9 % Sodium Chloride 1000ML 1120 / 2110 500 ml @ 999 mls/hr IV .Q31M ONE Rx#:[id number] Calcium Gluc in NaCl, Iso-Osm 2 100 / 100 gm In 100 ml @ 50 mls/hr IV ONCE ONE Rx#:[id number] Cefepime HCl 1 gm In 0.9 % 50 / 50 Sodium Chloride 50 ml @ 100 mls /hr IV Q12H [facility] Rx#:[id number] Magnesium Sulfate in Water 2 gm 50 / 50 In 50 ml @ 50 mls/hr IV ONCE ONE Rx#:[id number] Output: Output, Urine Amount 600 / 1970 760 / 1560 800 / 1560 Other: Number of Unmeasured Voids 500 1 1 Weight 42.1 kg 42.1 kg Patient Weight 05/04/24 23:59 Weight 42.1 kg Laboratory Results - last 24 hr 05/03/24 17:09: Sodium 141, Potassium 4.9, Chloride 112 H, Carbon Dioxide 25, Anion Gap 8.9, BUN 31 H D, Creatinine 2.00 H, Estimated Creat Clear 18, Estimated GFR 25 L, Est GFR ( Amer) 30 L, Glucose 88, Calcium 7.4 L, Magnesium 1.7 D, Total Bilirubin 0.3, AST 23, ALT 10 L, Alkaline Phosphatase 81, Total Protein 6.0 L, Albumin 3.3 L, Globulin 2.7, Albumin/Globulin Ratio 1.2 05/04/24 05:17: WBC 9.2, RBC 3.57 L, Hgb 10.2 L, Hct 31.8 L, MCV 89.2, MCH 28.5, MCHC 31.9, RDW 14.4, Plt Count 184, MPV 11.3 H, Neut % (Auto) 64.5, Lymph % (Auto) 22.9, [place] % (Auto) 6.9, Eos % (Auto) 4.9, Baso % (Auto) 0.8, Neut # (Auto) 6.0, Lymph # (Auto) 2.1, [place] # (Auto) 0.6, Eos # (Auto) 0.5 H, Baso # (Auto) 0.1, Sodium 139, Potassium 4.6, Chloride 113 H, Carbon Dioxide 22, Anion Gap 8.6, BUN 23 H D, Creatinine 1.40 H D, Estimated Creat Clear 25, Estimated GFR 37 L, Est GFR ( Amer) 45 L D, Glucose 92, Calcium 7.9 L, Phosphorus 2.8, Magnesium 1.7, Total Bilirubin 0.7, AST 22, ALT 9 L, Alkaline Phosphatase 76, Total Protein 5.9 L, Albumin 3.2 L, Globulin 2.7, Albumin/Globulin Ratio 1.2 I & O for Labs for Last 24 Hours: Intake & Output 05/01/24 05/02/24 05/03/24 05/04/24 23:59 23:59 23:59 23:59 Intake Total 19.500 / 5131.560 7861.522 / 3621.522 729.916 / 729.916 Output Total 1270 / 1970 1560 / 1560 Balance 19.500 / 1525.257 4451.522 / 1651.522 -830.084 / -830.084 Weight 42.1 kg 42.1 kg 42.1 kg Microbiology Reports for the Last 24 Hours: Microbiology 05/02/24 20:45 Blood Blood Culture - Preliminary NO GROWTH AFTER 24 HOURS 05/02/24 20:45 Blood Blood Culture - Preliminary NO GROWTH AFTER 24 HOURS Constitutional: Present mild distress, thin, chronically ill appearing and cooperative Head: Present atraumatic and normocephalic ENT: Present normal exam Respiratory: Present normal respiratory effort; Absent rhonchi, wheezes or crackles Cardiac: Present Reg Rate and Rhythm GI: Present soft and normal bowel sounds; Absent distention or tenderness Extremities: Present normal inspection and full ROM Skin: Present intact; Absent erythema Neuro: Present Resting Tremor (Minimal, improved), Grossly Intact, alert, awake, oriented x 3 and moves all extremities Assessment and Plan *Assessment and plan (1) Acute kidney injury superimposed on CKD: Status: Acute Category: Medical Code(s): N17.9 - Acute kidney failure, unspecified; N18.9 - Chronic kidney disease, unspecified (2) Hypocalcemia: Status: Acute Category: Medical Code(s): E83.51 - Hypocalcemia (3) Hypomagnesemia: Status: Acute Category: Medical Code(s): E83.42 - Hypomagnesemia (4) Nausea vomiting and diarrhea: Status: Acute Category: Medical Code(s): R11.2 - Nausea with vomiting, unspecified; R19.7 - Diarrhea, unspecified (5) Anemia: Status: Acute Qualifiers: Anemia type: unspecified type Qualified Code(s): D64.9 - Anemia, unspecified Category: Medical Code(s): D64.9 - Anemia, unspecified (6) Enteritis: Status: Acute Category: Medical Code(s): K52.9 - Noninfective gastroenteritis and colitis, unspecified Plan 68-year-old female with DONNIE and severe electrolyte disturbances. Continues to require patient management. Continue to replace electrolytes today. Tremor improving. Still on norepinephrine for hypotension. Goal MAP greater than 65. Problems addressed as follows: DONNIE CKD 4 -Baseline creatinine between 1.7-2.0. Improved to 1.4 this morning. 3.9 on admission. Repeat CMP and magnesium ordered for this afternoon with CBC, CMP, magnesium ordered for the morning -Making urine. Caution with nephrotoxins Severe hypomagnesemia: Hypocalcemia ? Receiving significant magnesium replacement. 2 g ordered this morning. 1 g of calcium gluconate ordered this morning as well. Repeat labs this afternoon at 5 PM ordered -iCal 5.4 yesterday. Within normal range -Potassium 4.6 this morning, magnesium 1.7, calcium 7.9, phosphorus 2.8. Mild bilateral hydronephrosis without obstruction: -chronic in nature. Patient reports making adequate urine. Will follow closely during hospitalization. Sepsis possibly due to enteritis: -No further diarrhea since admission. Tolerating good p.o. intake. -Continue to monitor blood cultures and urine culture - Patient currently started on IV cefepime/Flagyl. Follow inflammatory markers and adjust antibiotics accordingly. Plan to complete 5 days of empiric antibiotic therapy if no culture positivity. CAD with pacemaker: Holding blood pressure meds in the setting of hypotension i ncluding Lasix, metoprolol, Entresto, spironolactone -Weaning norepinephrine. Initiate midodrine 5 mg 3 times a day. History of blood clots on Eliquis: Continue Eliquis and watch patient closely for signs of bleeding PPx: Eliquis CODE STATUS full FEN: Cardiac
--- NOTE | 2024-05-04 14:30 | SW/DCPLANNER ---
Addendum entered by Mallorie Powers 05/05/24 12:30: Per Micki mac/ [facility] this patient has been accepted for their services. Addendum entered by Mallorie Powers 05/05/24 11:08: Patient information/order will be faxed to [facility] today. I will follow up once patient information is reviewed. Patient will discharge home today. Original Note: I spoke w/ this patient regarding plans once medically stable for discharge. PT evaluated patient and recommended home w/ home health services at time of discharge. Patient stated that she resides at home w/ her brother, prefers to return home and is agreeable to home health services. Patient prefers to use [facility] at time of discharge. I will set up home health services once medically stable for discharge. Per MD patient could possibly be ready for discharge tomorrow.
--- NOTE | 2024-05-04 17:21 | PC.NURSE ---
Addendum entered by Sarah Duque RN 05/04/24 17:26: PT STATES SHE FEELS MUCH BETTER TODAY COMPARED TO YESTERDAY. ALSO REPORTS DECREASED SHAKING. Original Note: A&OX4. PT HAS TOLERATED RA WELL THROUGHOUT SHIFT. RESPIRATIONS REGULAR AND UNLABORED. LUNG SOUNDS CLEAR THROUGHOUT. NO COUGH NOTED. +2 PULSES NOTED THROUGHOUT. NO EDEMA NOTED. ACTIVE BOWEL SOUNDS HEARD IN ALL 4 QUADRANTS. SOFT AND NONTENDER ABDOMEN. NO BM THUS FAR. PT VOIDS PER BATHROOM WITH ROLLING WALKER AND STANDBY ASSISTANCE. PT MOVES AROUND INDEPENDENTLY IN BED. PT HAS REPORTED PAIN TWICE THIS SHIFT AND RECEIVED OXYCODONE PER DEC. ON REASSESSMENT, PT STATED PAIN WAS DECREASED AND TOLERABLE. BED IN LOWEST POSITION. CALL LIGHT WITHIN REACH. VSS. PT IS ON LEVO AT 1MCG/MIN CURRENTLY TOLERATING WELL. BP NOTED AT 99/49. BED ALARM ON TO PROMOTE SAFETY SINCE PT HAS A HX OF FALLING AT HOME IN THE LAST 6 MONTHS PER PT. FAMILY AT BEDSIDE CURRENTLY. NO QUESTIONS OR CONCERNS VOICED THUS FAR. PT RECEIVED MAGNESIUM, CALCIUM, FLAGYL, AND CEFEPIME THIS SHIFT AND TOLERATED WELL. PT HAS REMAINED ON TELE THROUGHOUT SHIFT. PT IS PACED ON THE MONITOR.
[2024-05-04 17:40] LABS: Chloride 110 mmol/L (98-107); Potassium 5.1 mmoL/L (3.5-5.1); Sodium 135 mmol/L (136-145)
[2024-05-04 17:43] LABS: Alanine Aminotransferase 10 U/L (12-78); Albumin Level 3.4 g/dl (3.5-5.0); Albumin/Globulin Ratio 1.2 (1.1-1.8); Alkaline Phosphatase 73 U/L (38-126); Anion Gap 6.1 mEq/L (5-15); Aspartate Amino Transferase 26 U/L (14-36); Bilirubin,Total 0.5 mg/dl (0.2-1.3); Blood Urea Nitrogen 18 mg/dl (7-17); Calcium 8.6 mg/dl (8.4-10.2); Carbon Dioxide 24 mmol/L (22.0-30.0); Creatinine Clearance Estimated 29 mL/min (50-200); Estimated Glomerular Filt Rate 45 ml/min (>60); GFR (African American) 54 ML/MIN (>60); Globulin 2.8 g/dL (1.3-3.2); Glucose 96 mg/dl (74-100); Total Protein,Serum 6.2 g/dl (6.3-8.2)
[2024-05-04] MEDS: ATORVASTATIN 20MG TABLET 20 MG PO (20:09)
[2024-05-04] MEDS: MORPHINE 2MG/ML SYRINGE 2 MG IV (21:48)
[2024-05-05] VITALS (19 sets, daily range): BP systolic 80–123; BP diastolic 35–62; PULSE 60–64; RESP 20–35; TEMP 36.9–37; O2SAT 92–100; BMI 20.9
[2024-05-05] MEDS: MORPHINE 2MG/ML SYRINGE 2 MG IV (04:20)
[2024-05-05] MEDS: METRONIDAZ/SOD CHL 500 MG/100 ML PIGGYBACK 100 MG IV (05:36)
--- NOTE | 2024-05-05 05:48 | PC.NURSE ---
Patient is alert and oriented and has remained on room air throughout the shift. Pt was on a Levo drip and the beginning of the shift and was turned off around 1999. Pt has maintained a systolic greater than 90 after turning it off. Pt has called out three times complaining of back pain. She was treated with morphine and oxycodone. Patient has no requests at this time, call light within reach.
[2024-05-05 06:26] LABS: Basophils # 0.1 K/mm3 (0-0.2); Basophils % 0.6 % (0.1-2.0); Eosinophils # 0.4 K/mm3 (0.0-0.4); Eosinophils % 4.2 % (0.1-12.0); Hematocrit 28.3 % (37.0-47.0); Hemoglobin 10.4 g/dL (12.2-16.2); Lymphocytes % 23.8 % (10-50); Mean Corpuscular HGB Conc 36.7 g/dL (31.8-35.4); Mean Corpuscular Hemoglobin 32.8 pg (27.0-31.2); Mean Corpuscular Volume 89.4 fl (81-99); Mean Platelet Volume 11.6 fl (7.4-10.4); Monocytes # 0.5 K/mm3 (0.1-1.0); Neutrophils # 5.5 K/mm3 (1.8-7.8); Neutrophils % 65.5 % (37.0-80.0); Platelet Count 174 K/mm3 (142-424); Red Blood Count 3.17 M/mm3 (4.20-5.40); Red Cell Distribution Width 14.5 % (11.5-17.5); White Blood Count 8.4 K/mm3 (4.8-10.8)
[2024-05-05 06:30] LABS: Alanine Aminotransferase 9 U/L (12-78); Albumin Level 3.5 g/dl (3.5-5.0); Albumin/Globulin Ratio 1.3 (1.1-1.8); Alkaline Phosphatase 74 U/L (38-126); Aspartate Amino Transferase 19 U/L (14-36); Bilirubin,Total 0.7 mg/dl (0.2-1.3); Blood Urea Nitrogen 15 mg/dl (7-17); Calcium 9.4 mg/dl (8.4-10.2); Carbon Dioxide 28 mmol/L (22.0-30.0); Creatinine Clearance Estimated 36 mL/min (50-200); Estimated Glomerular Filt Rate 45 ml/min (>60); GFR (African American) 54 ML/MIN (>60); Globulin 2.7 g/dL (1.3-3.2); Glucose 86 mg/dl (74-100); Magnesium 1.7 mg/dl (1.6-2.3); Phosphorous 2.2 mg/dl (2.5-4.5); Potassium 5.8 mmoL/L (3.5-5.1); Sodium 139 mmol/L (136-145); Total Protein,Serum 6.2 g/dl (6.3-8.2)
[2024-05-05 06:33] LABS: Anion Gap 8.8 mEq/L (5-15); Chloride 108 mmol/L (98-107)
[2024-05-05] MEDS: DOCUSATE SODIUM 100 MG CAPSULE PO (08:00)
[2024-05-05] MEDS: MIDODRINE HCL 5 MG TABLET PO ×2 (08:00→12:14)
[2024-05-05] MEDS: CARIPRAZINE 1.5 MG 1.5 EACH PO (08:00)
[2024-05-05] MEDS: CEFEPIME HCL 1 GM in 0.9 % SODIUM CHLORIDE 50 ML IV (08:00)
[2024-05-05] MEDS: CITALOPRAM 40MG TABLET 40 MG PO (08:00)
[2024-05-05] MEDS: APIXABAN 5MG TABLET 2.5 MG PO (08:00)
[2024-05-05] MEDS: GABAPENTIN 400MG CAPSULE 400 MG PO ×2 (08:00→12:14)
[2024-05-05] MEDS: PANTOPRAZOLE 40MG TABLET 40 MG PO (08:00)
[2024-05-05] MEDS: MAGNESIUM OXIDE 400MG TABLET 400 MG PO (08:00)
--- NOTE | 2024-05-05 08:09 | P.DS_ITS ---
General Admission date:: 05/02/24 Discharge date: 05/05/24 HPI HPI HPI: Really nice patient with past medical history of CAD, arrhythmia with pacemaker, anxiety, history of blood clots on Eliquis, CHF on Entresto, CKD stage IV. Patient presents complaining of chills for several weeks. Patient also complains of nausea, vomiting, diarrhea, worsening weakness over past 3 days. States she suffers from 8-9 episodes of vomiting per day over the past 2 weeks. Also states she suffered from at least 2-3 episodes of diarrhea over the past 3 days. Stated today when she attempted to get up out of chair, legs became weak, and she fell to the ground. Patient then presented to emergency room for evaluation. Patient's magnesium found to be 0.02. Given 4 g IV magnesium in emergency room. Also given 2 g IV calcium gluconate. States she is never needed dialysis but my market relationship manager says I might 1 day. Lives with her brother at baseline. BUN 58, creatinine 3.91. Patient's blood pressure in emergency room 95/42. Complaining of acute left foot pain after fall. CT abdomen/pelvis shows enteritis. Hospital Course Hospital Course Hospital Course: 68-year-old female with DONNIE and severe electrolyte disturbances. Admitted for replace electrolytes and addressing her dehydration. Saw significant improveme nt during admission. Symptoms resolved with her tremor. Initially hypotensive, this improved as well with the addition of midodrine. Stable to discharge home with continued oral replacement of electrolytes and adjustments to blood pressure meds. Plan for close follow-up with cardiology for further management. Problems addressed as follows: DONNIE CKD 4 -Baseline creatinine between 1.7-2.0. Elevated to 3.9 pith BUN 58 on admission. Showed gradual improvement during admission with fluids. Creatinine actually improved to 1.2, BUN 15. Electrolytes improved with magnesium 1.7, potassium mid 5. Necessitated significant electrolyte replacement during admission. Showing good improvement. Making adequate urine. Encouraged patient stay adequately hydrated. Holding diuretic as stated below. Continue magnesium oxide supplementation for 100 mg daily. Severe hypomagnesemia: Hypocalcemia ? Creatinine 3.9, BUN 58 on admission. Magnesium less than 0.2. Showed gradual improvement with aggressive repletion. Calcium 5.7, normalized at 9.4 with aggressive repletion. Suspect secondary to dehydration from Reha, will loss GI, and loss from medication side fact and eating her diuretics. Electrolytes within normal range on day of discharge. Continue magnesium replacement. Holding diuretics. -Cardiology was consulted, will hold blood pressure and heart failure medications until follow-up. Stable discharge home. Mild bilateral hydronephrosis without obstruction: -chronic in nature. Patient reports making adequate urine. Sepsis possibly due to enteritis: -No further diarrhea since admission. Tolerating good p.o. intake. Blood cultures and urine cultures remain negative during admission. Was treated with empiric antibiotics during admission, white cell count normal on day of discharge date. No further antibiotics at discharge. CAD with pacemaker: Continue to hold blood pressure medications due to hypotension during admission. Blood pressures improved with the addition of midodrine 5 mg 3 times a day. Holding Lasix, metoprolol, Entresto, spironolactone. History of blood clots on Eliquis: Continue Eliquis, no bleeding during admission. Total time spent on discharge 32 minutes in counseling, documentation, chart review, and direct care with patient. Exam Data for Last 24 hours Vital signs and Labs for Last 24 Hours: Temp Pulse Resp BP Pulse Ox O2 Del Method O2 Flow Rate 98.5 F 60 30 H 97/50 L 95 Room Air 1 05/05/24 04:23 05/05/24 07:00 05/05/24 07:00 05/05/24 07:00 05/05/24 07:00 05/05/24 07:00 05/02/24 22:00 Laboratory Results - last 24 hr 05/03/24 05:55: Ionized Calcium 4.0 L 05/04/24 17:08: Sodium 135 L, Potassium 5.1, Chloride 110 H, Carbon Dioxide 24, Anion Gap 6.1, BUN 18 H, Creatinine 1.20 H, Estimated Creat Clear 29, Estimated GFR 45 L, Est GFR ( Amer) 54 L, Glucose 96, Calcium 8.6, Magnesium 2.0 D , Total Bilirubin 0.5, AST 26, ALT 10 L, Alkaline Phosphatase 73, Total Protein 6.2 L, Albumin 3.4 L, Globulin 2.8, Albumin/Globulin Ratio 1.2 05/05/24 05:41: WBC 8.4, RBC 3.17 L, Hgb 10.4 L, Hct 28.3 L, MCV 89.4, MCH 32.8 H, MCHC 36.7 H, RDW 14.5, Plt Count 174, MPV 11.6 H, Neut % (Auto) 65.5, Lymph % (Auto) 23.8, [place] % (Auto) 6.0, Eos % (Auto) 4.2, Baso % (Auto) 0.6, Neut # (Auto) 5.5, Lymph # (Auto) 2.0, [place] # (Auto) 0.5, Eos # (Auto) 0.4, Baso # (Auto) 0.1, Sodium 139, Potassium 5.8 H, Chloride 108 H, Carbon Dioxide 28, Anion Gap 8.8, BUN 15, Creatinine 1.20 H, Estimated Creat Clear 36, Estimated GFR 45 L, Est GFR ( Amer) 54 L, Glucose 86, Calcium 9.4, Phosphorus 2.2 L , Magnesium 1.7 D, Total Bilirubin 0.7, AST 19 D, ALT 9 L, Alkaline Phosphatase 74, Total Protein 6.2 L, Albumin 3.5, Globulin 2.7, Albumin/Globulin Ratio 1.3 I & O for Last 24 hours: Intake & Output 05/02/24 05/03/24 05/04/24 05/05/24 23:59 23:59 23:59 23:59 Intake Total 19.500 / 4027.955 1661.522 / 3621.522 1564.258 / 1964.258 400 / 400 Output Total 1270 / 1970 3210 / 3210 700 / 700 Balance 19.500 / 0370.818 7627.522 / 1651.522 -1645.742 / -1245.742 -300 / -300 Weight 42.1 kg 42.1 kg 42.1 kg 51.71 kg Microbiology Reports for the Last 24 Hours: Microbiology 05/02/24 20:45 Blood Blood Culture - Preliminary NO GROWTH AFTER 48 HOURS 05/02/24 20:45 Blood Blood Culture - Preliminary NO GROWTH AFTER 48 HOURS Constitutional Constitutional: no acute distress, thin, chronically ill appearing and cooperative *Routine HEENT Exam Head: Present normocephalic Eye: Present EOMI and PERRL ENT: Present mucous membranes moist *Routine Neck Exam Neck: Present supple; Absent lymphadenopathy *Routine Respiratory Exam Respiratory: Present CTA bilaterally *Routine Cardiovascular Exam Cardiovascular: Present RRR *Routine Abdominal Exam Abdominal: Present soft and normoactive bowel sounds; Absent tenderness *Routine Extremities Exam Extremities: Absent cyanosis, clubbing or edema *Routine Skin Exam Skin: Present warm; Absent rash *Routine Neurological Exam Neurological: Present alert, oriented X3 and moving all extremities; Absent altered mental status Results Data Completed and Pending Labs on day of discharge: Labs from last 24 hours 05/05/24 05/04/24 05/03/24 05:41 17:08 05:55 WBC 8.4 RBC 3.17 L Hgb 10.4 L Hct 28.3 L MCV 89.4 MCH 32.8 H MCHC 36.7 H RDW 14.5 Plt Count 174 MPV 11.6 H Neut % (Auto) 65.5 Lymph % (Auto) 23.8 [place] % (Auto) 6.0 Eos % (Auto) 4.2 Baso % (Auto) 0.6 Neut # (Auto) 5.5 Lymph # (Auto) 2.0 [place] # (Auto) 0.5 Eos # (Auto) 0.4 Baso # (Auto) 0.1 Sodium 139 135 L Potassium 5.8 H 5.1 Chloride 108 H 110 H Carbon Dioxide 28 24 Anion Gap 8.8 6.1 BUN 15 18 H Creatinine 1.20 H 1.20 H Estimated Creat Clear 36 29 Estimated GFR 45 L 45 L Est GFR ( Amer) 54 L 54 L Glucose 86 96 Calcium 9.4 8.6 Ionized Calcium 4.0 L Phosphorus 2.2 L Magnesium 1.7 D 2.0 D Total Bilirubin 0.7 0.5 AST 19 D 26 ALT 9 L 10 L Alkaline Phosphatase 74 73 Total Protein 6.2 L 6.2 L Albumin 3.5 3.4 L Globulin 2.7 2.8 Albumin/Globulin Ratio 1.3 1.2 Preliminary micro results at discharge 05/02/24 20:45 Blood Culture - Preliminary Blood NO GROWTH AFTER 48 HOURS 05/02/24 20:45 Blood Culture - Preliminary Blood NO GROWTH AFTER 48 HOURS DS: Diagnosis Discharge Diagnosis (1) Acute kidney injury superimposed on CKD: Status: Acute Code(s): N17.9 - Acute kidney failure, unspecified; N18.9 - Chronic kidney disease, unspecified (2) Hypocalcemia: Status: Acute Code(s): E83.51 - Hypocalcemia (3) Hypomagnesemia: Status: Acute Code(s): E83.42 - Hypomagnesemia (4) Nausea vomiting and diarrhea: Status: Acute Code(s): R11.2 - Nausea with vomiting, unspecified; R19.7 - Diarrhea, unspecified (5) Anemia: Status: Acute Code(s): D64.9 - Anemia, unspecified Qualifiers: Anemia type: unspecified type Qualified Code(s): D64.9 - Anemia, unspecified (6) Enteritis: Status: Acute Code(s): K52.9 - Noninfective gastroenteritis and colitis, unspecified Meds Home Medications and Allergies Home Medications Medication Instructions Recorded Confirmed Type albuterol sulfate 90 mcg/actuation 2 puff inhalation Q6HP PRN 11/06/23 05/02/24 History aerosol inhaler Shortness Of Breath mirabegron 50 mg tablet,extended 50 mg PO DAILY #30 tabs 12/28/23 05/02/24 Rx release 24 hr escitalopram oxalate 20 mg tablet 20 mg PO DAILY MOOD #90 tabs 12/29/23 05/02/24 Rx oxybutynin chloride 10 mg 10 mg PO DAILY 90 days #180 tabs 12/30/23 05/02/24 Rx tablet,extended release 24 hr furosemide 40 mg tablet 40 mg PO DAILY 90 days #90 tabs 03/16/24 05/02/24 Rx promethazine 25 mg tablet 25 mg PO Q8H PRN cough #30 tabs 04/20/24 05/02/24 Rx oxycodone 10 mg tablet 10 mg PO QID MODERATE TO SEVERE 04/29/24 05/02/24 Rx PAIN 30 days #120 tabs atorvastatin 20 mg tablet 20 mg PO HS 05/02/24 05/02/24 History cariprazine 1.5 mg capsule 1.5 mg PO DAILY 05/02/24 05/02/24 History (Vraylar) gabapentin 400 mg capsule 400 mg PO TID 05/02/24 05/02/24 History loratadine 10 mg tablet 10 mg PO DAILY 05/02/24 05/02/24 History metoprolol succinate 25 mg 25 mg PO DAILY 05/02/24 05/02/24 History tablet,extended release 24 hr omeprazole 20 mg capsule,delayed 20 mg PO DAILY 05/02/24 05/02/24 History release sacubitril 24 mg-valsartan 26 mg 1 tab PO BID 05/02/24 05/02/24 History tablet (Entresto) spironolactone 100 mg tablet 100 mg PO DAILY 05/02/24 05/02/24 History apixaban 5 mg tablet (Eliquis) 5 mg PO BID 05/03/24 05/03/24 History magnesium oxide 400 mg (241.3 mg 400 mg PO DAILY 30 days #30 tabs 05/05/24 Rx magnesium) tablet midodrine 5 mg tablet 5 mg PO TID 3 days #9 tabs 05/05/24 Rx New Prescriptions to Start Prescriptions: Hemant Orosco James Allergies Allergy/AdvReac Type Severity Reaction Status Date / Time acetaminophen Allergy Unknown Unknown Verified 04/07/24 11:53 [From DARVOCET-N] allergy reaction codeine [CODEINE] Allergy Unknown Unknown Verified 04/07/24 11:53 allergy reaction propoxyphene Allergy Unknown Unknown Verified 04/07/24 11:53 [From ADALIVOCET-N] allergy reaction tomato AdvReac Mild Gastrointestinal Verified 05/04/24 10:05 Upset Discharge Plan Disposition Patient Disposition: Home Health Service Condition: Fair Discharge Order Discharge Orders: Discharge Order (Routine); Ordered 05/05/24 Ordered By: Hemant Wolfe Follow up Plan Follow up with: Akhil Horner DO [Primary Care Provider] - 05/12/24 1:15 pm Ghassan Davey MD [Staff Physician] - 05/12/24 10:15 am Prescriptions/Medication Reconciliation: New midodrine 5 mg Tablet 5 mg PO TID 3 Days Qty: 9 0RF magnesium oxide 400 mg (241.3 mg magnesium) Tablet 400 mg PO DAILY 30 Days Qty: 30 0RF Continued mirabegron 50 mg tablet extended release 24 hr 50 mg PO DAILY Qty: 30 3RF escitalopram oxalate 20 mg tablet 20 mg PO DAILY Qty: 90 3RF oxybutynin chloride 10 mg tablet extended release 24hr 10 mg PO DAILY 90 Days Qty: 180 1RF promethazine 25 mg tablet 25 mg PO Q8H PRN (Reason: cough) Qty: 30 0RF oxycodone 10 mg tablet 10 mg PO QID 30 Days Qty: 120 0RF atorvastatin 20 mg tablet 20 mg PO HS gabapentin 400 mg capsule 400 mg PO TID omeprazole 20 mg capsule,delayed release(DR/EC) 20 mg PO DAILY loratadine 10 mg tablet 10 mg PO DAILY Vraylar 1.5 mg capsule 1.5 mg PO DAILY Eliquis 5 mg tablet 5 mg PO BID albuterol sulfate 90 mcg/actuation HFA aerosol inhaler 2 puff inhalation Q6HP PRN (Reason: Shortness Of Breath) Held furosemide 40 mg tablet 40 mg PO DAILY 90 Days Qty: 90 4RF Hold Instructions: Pending follow-up with cardiology spironolactone 100 mg tablet 100 mg PO DAILY Hold Instructions: Pending follow-up with cardiology metoprolol succinate 25 mg tablet extended release 24 hr 25 mg PO DAILY Hold Instructions: Pending follow-up with cardiology Entresto 24-26 mg tablet 1 tab PO BID Hold Instructions: Pending follow-up with cardiology Rx Instructions: TAKE ONE TABLET BY MOUTH 2 TIMES A DAY FOR HEART Problem Reconciliation Problems Reviewed?: Yes Patient Discharge Instructions ACTIVITY: Continue current activity DIET: continue same diet Patient Instructions: Hypocalcemia, DI for Hypomagnesemia, DI for Acute Kidney Injury Providers Primary Care Provider: Akhil Horner Admit Provider: Dalton Blackburn Attending Provider: Dalton Blackburn
[2024-05-05] MEDS: OXYCODONE 5MG IMMEDIATE RELEASE TABLET 5 MG PO (08:16)
--- NOTE | 2024-05-05 08:43 | CA_ITS ---
APPROVED REPORT EXAM: Comprehensive 2D, Doppler, and color-flow Echocardiogram Clay Maker: Amber Nazario, RT(R) Ht: 5 ft 1 in Wt: 114lbs BSA: 1.49 BP: 112/47 mmHg Indications: DONNIE, HF, COPD, smoker, CAD, pacemaker, hx of takutsubo CM, VIN, h/o AFIB, hgb 10.4 2D Dimensions LVEF (Bergeron's) 67.90 % F: 54 - 74 LV Volume 89.50 mL F: 46 - 106 LV Volume Index 60.1 mL/m2 F: 29 - 61 EF AP4 73.90 % EF AP2 63.2 % EF BP 67.9 % GL Strain -23.1 % M-Mode Dimensions RVDd 3.01 cm (0.9-2.6) LA Diam 3.77 cm (1.9-4.0) LVDd 4.72 cm (3.5-5.7) LVDs 3.21 cm (3.5-5.7) IVSd 0.60 cm (0.6-1.1) PWd 0.67 cm (0.6-1.1) EF (Teich) 60.10% FS 32.00% EDV (Teich) 103.40 mL ESV (Teich) 41.30 mL LV Diastology E Decel Time 213 (160-240 msec) E/A Ratio 0.9 Mitral Valve MV E Max Bernabe. 82.0 (40-130 cm/s) MV A Velocity 93.0 (40-130 cm/s) E/A Ratio 0.88 MV PHT 62.0 ms Left Ventricle The left ventricle is normal size. The left ventricular systolic function is normal. The left ventricular ejection fraction is within the normal range. There is normal left ventricular wall thickness. There is normal LV segmental wall motion. LVEF is 55%. The left ventricular diastolic function is normal. Right Ventricle The right ventricle is normal size. The right ventricular systolic function is normal. Atria The left atrium size is normal. The right atrium size is normal. There is no Doppler evidence of interatrial shunt. Aortic Valve The aortic valve opens well. There is no aortic valvular stenosis. No aortic regurgitation is present. Mitral Valve The mitral valve is normal in structure. No evidence of mitral valve stenosis. Mild mitral regurgitation. Tricuspid Valve The tricuspid valve leaflets are thin and pliable. Trace tricuspid regurgitation. There is insufficient TR jet to estimate RVSP. Pulmonic Valve The pulmonary valve is normal in structure. Trace pulmonic regurgitation. Great Vessels The aortic root is normal in size. The ascending aorta is not well-visualized. IVC is normal in size and collapses >50% with inspiration. Pericardium There is no pericardial effusion. Other Information Study Quality: Adequate Conclusion Normal biventricular systolic function. Mild MR. Electronically signed by : Keya Davey MD 05/09/2024 00:19:49
[2024-05-05] MEDS: K-PHOS NEUTRAL 250MG TABLET 250 MG PO (08:47)
--- NOTE | 2024-05-05 09:07 | EXP.CARD.CON ---
History of Present Illness History of Present Illness Consult date: 05/05/24 Requesting physician: Hemant Wolfe Consult reason: known to you and hypotension Chief complaint: Nausea and vomiting, hypotension Additional Medical History:: 1. CAD, mild A. Cardiac catheterization, 02/2021, mild to moderate CAD. Hyperdynamic EF. B. Echocardiogram, 02/2021, EF 55% with mild RV enlargement. No significant valve disease. C. Lexiscan Myoview, 11/2023, TID of 1.39 2. Takotsubo's cardiomyopathy, 2020 and possibly 2021 A. Cardiac catheterization, 05/2021, mild to moderate CAD unchanged from [facility] 3 months ago. EF 20% with severely dilated left ventricle and severe apical ballooning. LVEDP 10 mmHg. B. Echo, 06/12/2021, EF 20% with marked hypo to akinetic mid to distal septum, anterior, anteroapical and apical ochoa. C. Echo, 07/12/2021, EF 55% with no regional wall motion abnormality. D. Echocardiogram 05/29/2022, EF 30% with marked hypokinesis involving the inferolateral, lateral and posterior lateral ochoa. E. Echocardiogram, 11/16/2023, normal LV systolic function. RV difficult to visualize but grossly appears normal in size and function. Mild MR. 3. Chronic tobacco use A. COPD 4. ADIEL 5. Carotid artery disease A. 20-49% stenosis bilaterally, 2020 6. Old lacunar infarct in the right basal ganglia/centrum semiovale on CT of the head, 2020 7. History of respiratory distress related to COVID requiring intubation and mechanical ventilation at [facility], 2020 8. Sepsis with possible enterocolitis, 05/2022, subsequently transferred to [facility] for further treatment. 9. A-fib with RVR, 05/2022 in the setting of sepsis requiring Levophed. 10. Permanent pacemaker implantation, 03/17/2023 due to symptomatic bradycardia 11. History of GI bleed felt to be in the colon, 2020, [facility] History of present illness: 68-year-old white female with multiple medical problems as noted above admitted for several days history of diarrhea with multiple lab abnormalities and hypotension. CT of the abdomen and pelvis showed enteritis. Patient has been treated with IV fluids and electrolyte replacement with improvement in symptoms and lab abnormalities. Persistent low blood pressure readings noted despite holding blood pressure medications. Clinically patient has significantly improved and is anxious to go home. Due to persistent low blood pressure cardiology was consulted for evaluation. Blood pressure cuff was changed to a pediatric cuff or small adult cuff this morning with better blood pressure readings around 100 mm Hg systolic. Hemoglobin is stable between 10-11 Potassium slightly elevated this morning at 5.8 Creatinine has improved from 3.9 down to 1.2 today Magnesium has improved from less than 0.[address] this admission showed no acute abnormality. CT of the lung 04/26/2024 showed a new left base opacity favoring inflammatory change. CT of the abdomen pelvis this admission pertinent for enteritis and small bowel loops. EKG this admission shows A paced V sensed rhythm at 60 bpm. Most recent pacer interrogation was 04/04/2024 pertinent for no arrhythmias and battery life good for another 10 years. A-fib burden was 0. A paced 90%, V paced 4%. [facility] Disclaimer: The information contained in this section may have been updated after the patient was seen, as this information can be updated by other users. Medical History (Updated 05/05/24 @ 09:54 by MAXX Anthony) Anxiety Pacemaker Black stools Sepsis Left foot pain Acquired hammer toes of both feet Acquired hallux valgus of left foot Incurved toenail Neuropathy Callus of foot Primary osteoarthritis of both feet Fatigue Dizziness Near syncope Symptomatic bradycardia Bradycardia Abdominal pain Ischemic colitis CHF (congestive heart failure) Non-STEMI (non-ST elevated myocardial infarction) Atrial fibrillation with rapid ventricular response Acute renal failure Dehydration Urinary tract infection Sepsis CKD (chronic kidney disease) Diarrhea Dehydration DONNIE (acute kidney injury) COVID-19 Sinus bradycardia Viral cardiomyopathy Elevated white blood cell count, unspecified Renal insufficiency Takotsubo cardiomyopathy Elevated left ventricular end-diastolic pressure (LVEDP) Gastroenteritis ST elevation SD (STEMI) ADIEL (obstructive sleep apnea) TIA (transient ischemic attack) Facial droop Atypical angina HTN (hypertension) Edema Tobacco dependence syndrome Abnormal EKG COPD (chronic obstructive pulmonary disease) Chest pain Overweight (BMI 25.0-29.9) Trapezius muscle strain Pre-ulcerative calluses Lumbar disc disease with radiculopathy Lumbar foraminal stenosis Lumbar spondylosis Back Pain Dizziness Angina pectoris History of CVA (cerebrovascular accident) Solitary lung nodule Palpitations Dyspnea Tobacco user HLD (hyperlipidemia) HHD (hypertensive heart disease) Mitral valve regurgitation CAD (coronary artery disease) Surgical History Presence of cardiac pacemaker Family History Other No significant family history Social History (Updated 05/02/24 @ 22:49 by Laquita Valdivia RN) Smoking Status: Current every day smoker tobacco type: cigarettes packs per day: 1 second hand exposure: Yes alcohol intake: never substance use type: denies use current occupational status: unemployed Travel in the last 8 weeks: None household members: family housing: house current occupational exposures/hazards: No caffeine: Yes Review of Systems Review of Systems Review of systems:: pertinent systems reviewed and negative unless documented below *Cardiovascular Cardiovascular: Denies chest pain and Reports dyspnea on exertion *Respiratory Respiratory: Reports cough and Reports dyspnea on exertion *Gastrointestinal Gastrointestinal: Reports loose stools Exam Data for Last 24 hours Vital signs and Labs for Last 24 Hours: Temp Pulse Resp BP Pulse Ox O2 Del Method O2 Flow Rate 98.5 F 60 20 112/47 L 99 Room Air 1 05/05/24 04:23 05/05/24 08:53 05/05/24 08:53 05/05/24 08:53 05/05/24 08:53 05/05/24 08:53 05/02/24 22:00 Laboratory Results - last 24 hr 05/03/24 05:55: Ionized Calcium 4.0 L 05/04/24 17:08: Sodium 135 L, Potassium 5.1, Chloride 110 H, Carbon Dioxide 24, Anion Gap 6.1, BUN 18 H, Creatinine 1.20 H, Estimated Creat Clear 29, Estimated GFR 45 L, Est GFR ( Amer) 54 L, Glucose 96, Calcium 8.6, Magnesium 2.0 D, Total Bilirubin 0.5, AST 26, ALT 10 L, Alkaline Phosphatase 73, Total Protein 6.2 L, Albumin 3.4 L, Globulin 2.8, Albumin/Globulin Ratio 1.2 05/05/24 05:41: WBC 8.4, RBC 3.17 L, Hgb 10.4 L, Hct 28.3 L, MCV 89.4, MCH 32.8 H, MCHC 36.7 H, RDW 14.5, Plt Count 174, MPV 11.6 H, Neut % (Auto) 65.5, Lymph % (Auto) 23.8, Hendricks % (Auto) 6.0, Eos % (Auto) 4.2, Baso % (Auto) 0.6, Neut # (Auto) 5.5, Lymph # (Auto) 2.0, Hendricks # (Auto) 0.5, Eos # (Auto) 0.4, Baso # (Auto) 0.1, Sodium 139, Potassium 5.8 H, Chloride 108 H, Carbon Dioxide 28, Anion Gap 8.8, BUN 15, Creatinine 1.20 H, Estimated Creat Clear 36, Estimated GFR 45 L, Est GFR ( Amer) 54 L, Glucose 86, Calcium 9.4, Phosphorus 2.2 L, Magnesium 1.7 D, Total Bilirubin 0.7, AST 19 D, ALT 9 L, Alkaline Phosphatase 74, Total Protein 6.2 L, Albumin 3.5, Globulin 2.7, Albumin/Globulin Ratio 1.3 I & O for Last 24 hours: Intake & Output 05/02/24 05/03/24 05/04/24 05/05/24 11:59 11:59 11:59 11:59 Intake Total 1724.937 / 2535.093 2580.647 / 2634.647 1605.696 / 1605.696 Output Total 670 / 670 2160 / 2160 2350 / 2350 Balance 1054.937 / 1057.287 474.647 / 474.647 -744.304 / -744.304 Weight 92 lb 13.034 oz 92 lb 13.034 oz 114 lb Microbiology Reports for the Last 24 Hours: Microbiology 05/02/24 20:45 Blood Blood Culture - Preliminary NO GROWTH AFTER 48 HOURS 05/02/24 20:45 Blood Blood Culture - Preliminary NO GROWTH AFTER 48 HOURS Constitutional Constitutional: no acute distress *Routine Respiratory Exam Respiratory: Present decreased breath sounds and CTA bilaterally; Absent rhonchi or wheezes *Routine Cardiovascular Exam Cardiovascular: Present RRR; Absent murmur, gallop or rubs *Routine Extremities Exam Extremities: Absent edema *Routine Neurological Exam Neurological: Present alert, oriented X3 and CN II-XII intact Meds Home Medications and Allergies Home Medications Medication Instructions Recorded Confirmed Type albuterol sulfate 90 mcg/actuation 2 puff inhalation Q6HP PRN 11/06/23 05/02/24 History aerosol inhaler Shortness Of Breath mirabegron 50 mg tablet,extended 50 mg PO DAILY #30 tabs 12/28/23 05/02/24 Rx release 24 hr escitalopram oxalate 20 mg tablet 20 mg PO DAILY MOOD #90 tabs 12/29/23 05/02/24 Rx oxybutynin chloride 10 mg 10 mg PO DAILY 90 days #180 tabs 12/30/23 05/02/24 Rx tablet,extended release 24 hr furosemide 40 mg tablet 40 mg PO DAILY 90 days #90 tabs 03/16/24 05/02/24 Rx promethazine 25 mg tablet 25 mg PO Q8H PRN cough #30 tabs 04/20/24 05/02/24 Rx oxycodone 10 mg tablet 10 mg PO QID MODERATE TO SEVERE 04/29/24 05/02/24 Rx PAIN 30 days #120 tabs atorvastatin 20 mg tablet 20 mg PO HS 05/02/24 05/02/24 History cariprazine 1.5 mg capsule 1.5 mg PO DAILY 05/02/24 05/02/24 History (Vraylar) gabapentin 400 mg capsule 400 mg PO TID 05/02/24 05/02/24 History loratadine 10 mg tablet 10 mg PO DAILY 05/02/24 05/02/24 History metoprolol succinate 25 mg 25 mg PO DAILY 05/02/24 05/02/24 History tablet,extended release 24 hr omeprazole 20 mg capsule,delayed 20 mg PO DAILY 05/02/24 05/02/24 History release sacubitril 24 mg-valsartan 26 mg 1 tab PO BID 05/02/24 05/02/24 History tablet (Entresto) spironolactone 100 mg tablet 100 mg PO DAILY 05/02/24 05/02/24 History apixaban 5 mg tablet (Eliquis) 5 mg PO BID 05/03/24 05/03/24 History New Prescriptions to Start Prescriptions: Allergies Allergy/AdvReac Type Severity Reaction Status Date / Time acetaminophen Allergy Unknown Unknown Verified 04/07/24 11:53 [From KEIRYT-N] allergy reaction codeine [CODEINE] Allergy Unknown Unknown Verified 04/07/24 11:53 allergy reaction propoxyphene Allergy Unknown Unknown Verified 04/07/24 11:53 [From DARVOCET-N] allergy reaction tomato AdvReac Mild Gastrointestinal Verified 05/04/24 10:05 Upset Assessment and Plan *Assessment and plan (1) Enteritis: Status: Acute Category: Medical Code(s): K52.9 - Noninfective gastroenteritis and colitis, unspecified (2) Hypotension: Status: Acute Qualifiers: Hypotension type: hypotension due to hypovolemia Qualified Code(s): E86.1 - Hypovolemia Category: Medical Code(s): I95.9 - Hypotension, unspecified (3) Anemia: Status: Acute Qualifiers: Anemia type: unspecified type Qualified Code(s): D64.9 - Anemia, unspecified Category: Medical Code(s): D64.9 - Anemia, unspecified (4) Acute kidney injury superimposed on CKD: Status: Acute Category: Medical Code(s): N17.9 - Acute kidney failure, unspecified; N18.9 - Chronic kidney disease, unspecified (5) COPD (chronic obstructive pulmonary disease): Status: Acute Qualifiers: COPD type: unspecified COPD Qualified Code(s): J44.9 - Chronic obstructive pulmonary disease, unspecified Category: Medical Code(s): J44.9 - Chronic obstructive pulmonary disease, unspecified (6) HTN (hypertension): Status: Acute Qualifiers: Hypertension type: primary hypertension Qualified Code(s): I10 - Essential (primary) hypertension Category: Medical Code(s): I10 - Essential (primary) hypertension (7) HLD (hyperlipidemia): Status: Acute Qualifiers: Hyperlipidemia type: mixed hyperlipidemia Qualified Code(s): E78.2 - Mixed hyperlipidemia Category: Medical Code(s): E78.5 - Hyperlipidemia, unspecified Plan 1. Enteritis with nausea vomiting and diarrhea -Resolved 2. Hypotension secondary to #1 -Improved -Better blood pressure cuff readings with appropriate cuff -Continue to hold metoprolol and Entresto with reassessment as an outpatient next week 3. Chronic kidney disease with chronic anemia -Creatinine improved to 1.2 this admission -Hemoglobin stable at 10-11 4. Cardiac pacemaker in situ -History of symptomatic bradycardia -History of transient atrial fibrillation -On Eliquis therapy 5. History of mild to moderate coronary artery disease, 2020 -Recent abnormal stress test with transient ischemic dilatation but normal troponins this admission. -No further evaluation at this time 6. History of hypertension -currently holding blood pressure medicines 7. Hyperlipidemia -continue statin therapy -LDL 93 in 01/2020 8. History of stress cardiomyopathy/Takotsubo cardiomyopathy in 2020 and 2021 -Resolved with medical therapy Preliminary Echocardiogram shows normal EF. Okay for discharge when Dr. Wolfe is ready. Home medication recommendations: Lipitor 20 mg daily Eliquis 2.5 mg twice daily Use furosemide and spironolactone as needed for lower extremity edema. Hold entresto and metoprolol. Follow-up in our office in 1 week for consideration of restarting metoprolol and Entresto therapy.
--- NOTE | 2024-05-09 13:47 | CARE MANAGER ---
Attempted to contact patient related to hospital discharge x2. Left VM message. MELIZA Tapia
== END 2024-05-05 13:22 | disposition home health service (06) | DRG 872 ==
LOC: ER 17:20 → 2ND 17:34
PROVIDERS: Internal Medicine Adolescent Medicine; Physician Assistant; Admitting Provider Internal Medicine; Emergency Provider Emergency Medicine; PCP Internal Medicine; Visit Provider Internal Medicine
DX: A41.9 Sepsis, unspecified organism (principal); N17.9 Acute kidney failure, unspecified; N18.4 Chronic kidney disease, stage 4 (severe); N13.30 Unspecified hydronephrosis; I13.0 Hypertensive heart and chronic kidney disease with heart failure and stage 1 through stage 4 chronic kidney disease, or unspecified chronic kidney disease; E87.20 Acidosis, unspecified; E83.42 Hypomagnesemia; G62.9 Polyneuropathy, unspecified; E83.51 Hypocalcemia; J44.9 Chronic obstructive pulmonary disease, unspecified; I25.2 Old myocardial infarction; B33.24 Viral cardiomyopathy; Z86.73 Personal history of transient ischemic attack (TIA), and cerebral infarction without residual deficits; I25.10 Atherosclerotic heart disease of native coronary artery without angina pectoris; I34.0 Nonrheumatic mitral (valve) insufficiency; F17.210 Nicotine dependence, cigarettes, uncomplicated; D63.1 Anemia in chronic kidney disease; K52.9 Noninfective gastroenteritis and colitis, unspecified; Z95.0 Presence of cardiac pacemaker; Z79.01 Long term (current) use of anticoagulants
CPT/HCPCS: 36415; 70450; 74176; 80053; 81001; 82330; 82803; 83605; 83735; 84100; 84145; 84484; 85025; 86140; 87040; 87086; 87581; 87632; 87635; 87798; 93005; 93306; 97162; 97165; 97530; 97535; 99291; J0692; J2270; J2405; J3475

== ENCOUNTER 2024-07-06 13:04 | Outpatient (CLI) | payer MEDICARE, SELFPAY ==
--- NOTE | 2024-07-06 13:05 | MM_ITS ---
PROCEDURE INFORMATION: Exam: MG Bilateral Screening 3D Mammography Exam date and time: 07/06/2024 12:57 PM Age: 68 years old Clinical indication: Screening examination TECHNIQUE: Imaging protocol: Bilateral Screening tomosynthesis and 2D mammography including computer-aided detection (CAD) when performed. COMPARISON: 1. MG DMSB DIG MAMM-SCREEN TAQUERIA 01/17/2016 4:33 PM 2. MG DMSB DIG MAMM-SCREEN TAQUERIA 09/11/2014 2:20 PM FINDINGS: MAMMOGRAPHY: Breast composition: There are scattered areas of fibroglandular density. Mass: No suspicious masses. Architectural distortion: None. Calcifications: No suspicious calcifications. Asymmetric density: None. Skin thickening: None. Axillary adenopathy: None. IMPRESSION: No mammographic evidence of malignancy. Annual screening is recommended unless otherwise clinically indicated. ASSESSMENT: BI-RADS Category 1: Negative.
== END 2024-07-06 23:59 | disposition home or self-care (01) ==
LOC: RAD 13:05
PROVIDERS: PCP Internal Medicine; Visit Provider Internal Medicine
DX: Z12.31 Encounter for screening mammogram for malignant neoplasm of breast (principal)
CPT/HCPCS: 77063; 77067

== ENCOUNTER 2024-07-13 09:03 | Outpatient (CLI) | payer MEDICARE, SELFPAY ==
--- NOTE | 2024-07-13 09:03 | XR_ITS ---
FINAL REPORT TECHNIQUE: Bone densitometry calculations of the lumbar spine and left hip were obtained. CLINICAL HISTORY: screening FINDINGS: Using L1-4, the bone mineral density of the spine is 0.977 g/cm2, corresponding to T-score of -0.6. Using the left hip, the bone mineral density of the femoral neck is 0.786 g/cm2, corresponding to a T-score of -1.8. NOTE: T-score: Standard deviation compared with peak bone mass of young adult mean. *Following the recommendations of the International Society of Bone densitometry, classification of hip BMD is based on the lower of two T-scores; total hip or femoral neck. IMPRESSION: Diminished bone mineral density of the left hip consistent with osteopenia. Normal bone mineral density of the lumbar spine. Reviewed, Interpreted and Dictated by Usman Robles MD Transcribed by Norma Neal Authenticated and . [facility]
== END 2024-07-13 23:59 | disposition home or self-care (01) ==
LOC: RAD 09:03
PROVIDERS: PCP Internal Medicine; Visit Provider Internal Medicine
DX: M81.0 Age-related osteoporosis without current pathological fracture (principal)
CPT/HCPCS: 77080

== ENCOUNTER 2024-08-09 10:36 | Outpatient (CLI) | payer MEDICARE, SELFPAY ==
[2024-08-09 18:58] LABS: Hemoglobin A1C 5.6 % (4.0-6.0); Microalbumin < 6.000 mg/L (0-16.7)
[2024-08-09 18:59] LABS: Basophils # 0.1 K/mm3 (0-0.2); Basophils % 1.2 % (0.1-2.0); Eosinophils # 0.5 K/mm3 (0.0-0.4); Eosinophils % 5.8 % (0.1-12.0); Hematocrit 38.2 % (37.0-47.0); Hemoglobin 12.6 g/dL (12.2-16.2); Lymphocytes # 2.4 K/mm3 (0.7-4.5); Lymphocytes % 25.7 % (10-50); Mean Corpuscular Hemoglobin 28.8 pg (27.0-31.2); Mean Corpuscular Volume 87.3 fl (81-99); Mean Platelet Volume 9.6 fl (7.4-10.4); Monocytes # 0.6 K/mm3 (0.1-1.0); Monocytes % 6.3 % (1.7-9.3); Neutrophils # 5.6 K/mm3 (1.8-7.8); Platelet Count 272 K/mm3 (142-424); Red Blood Count 4.37 M/mm3 (4.20-5.40); Red Cell Distribution Width 14.6 % (11.5-17.5); White Blood Count 9.2 K/mm3 (4.8-10.8)
[2024-08-09 19:00] LABS: Creatinine,Urine Random 90 mg/dL (Not Estab.)
[2024-08-09 19:20] LABS: Albumin Level 4.7 g/dl (3.5-5.0); Chloride 99 mmol/L (98-107); Potassium 5.9 mmoL/L (3.5-5.1); Sodium 134 mmol/L (136-145)
[2024-08-09 19:23] LABS: Alanine Aminotransferase 10 U/L (12-78); Albumin/Globulin Ratio 1.8 (1.1-1.8); Alkaline Phosphatase 83 U/L (38-126); Anion Gap 13.9 mEq/L (5-15); Aspartate Amino Transferase 21 U/L (14-36); Bilirubin,Total 0.4 mg/dl (0.2-1.3); Blood Urea Nitrogen 37 mg/dl (7-17); Calcium 9.9 mg/dl (8.4-10.2); Carbon Dioxide 27 mmol/L (22.0-30.0); Estimated Glomerular Filt Rate 19 ml/min (>60); GFR (African American) 23 ML/MIN (>60); Globulin 2.6 g/dL (1.3-3.2); Glucose 102 mg/dl (74-100); Total Protein,Serum 7.3 g/dl (6.3-8.2)
== END 2024-08-09 23:59 | disposition home or self-care (01) ==
LOC: LAB.DROPOF 08-10 10:37
PROVIDERS: PCP Internal Medicine; Visit Provider Internal Medicine
DX: N18.30 Chronic kidney disease, stage 3 unspecified (principal); Z13.1 Encounter for screening for diabetes mellitus; I10 Essential (primary) hypertension; D64.9 Anemia, unspecified
CPT/HCPCS: 80053; 82043; 82570; 83036; 85025

== ENCOUNTER 2024-08-10 11:47 | Emergency (ER) | payer MEDICARE, SELFPAY ==
[2024-08-10 11:47] VITALS: BP 132/54; PULSE 62; RESP 13; TEMP 36.6; O2SAT 97; BMI 20.2
--- NOTE | 2024-08-10 12:16 | ECG_ITS ---
APPROVED REPORT Exam: Resting ECG HR:60 bpm ECG Measurements Heart Rate 60 AXES HI 174 P 242 QRSd 92 QRS 35 QT 417 T 55 QTc 417 Conclusion ELECTRONIC ATRIAL PACEMAKER ABNORMAL RHYTHM ECG Electronically signed by : EUSEBIA GREGORIO, 08/10/2024 15:34:14
[2024-08-10 12:19] LABS: Basophils # 0.1 K/mm3 (0-0.2); Basophils % 0.8 % (0.1-2.0); Eosinophils # 0.5 K/mm3 (0.0-0.4); Eosinophils % 4.7 % (0.1-12.0); Hematocrit 38.1 % (37.0-47.0); Hemoglobin 12.8 g/dL (12.2-16.2); Lymphocytes % 18.4 % (10-50); Mean Corpuscular HGB Conc 33.7 g/dL (31.8-35.4); Mean Corpuscular Hemoglobin 28.9 pg (27.0-31.2); Mean Corpuscular Volume 85.9 fl (81-99); Mean Platelet Volume 8.4 fl (7.4-10.4); Monocytes # 0.6 K/mm3 (0.1-1.0); Monocytes % 5.8 % (1.7-9.3); Neutrophils # 7.7 K/mm3 (1.8-7.8); Neutrophils % 70.2 % (37.0-80.0); Platelet Count 263 K/mm3 (142-424); Red Blood Count 4.44 M/mm3 (4.20-5.40); Red Cell Distribution Width 14.7 % (11.5-17.5)
--- NOTE | 2024-08-10 12:19 | CT_ITS ---
PROCEDURE INFORMATION: Exam: CT Abdomen And Pelvis Without Contrast Exam date and time: 08/10/2024 12:47 PM Age: 68 years old Clinical indication: Abdominal pain; Additional info: Bilateral flank pain, libra TECHNIQUE: Imaging protocol: Computed tomography of the abdomen and pelvis without contrast. Radiation optimization: All CT scans at this facility use at least one of these dose optimization techniques: automated exposure control; mA and/or kV adjustment per patient size (includes targeted exams where dose is matched to clinical indication); or iterative reconstruction. COMPARISON: CT ABDOMEN PELVIS WO CON 05/02/2024 3:31 PM FINDINGS: Lungs: There is diffuse mild subpleural ground-glass opacification in the dependent lower lobes. 6 mm subtle ground-glass nodule seen in the posterior right upper lobe. Mild diffuse interstitial prominence in the lung bases. Few scattered small (2-3 mm) nodules in the lungs. Liver: Normal. No mass. Gallbladder and biliary ducts: Normal. No calcified stones. No ductal dilation. Pancreas: Normal. No ductal dilation. Spleen: Calcified granulomas in the spleen. Adrenal glands: Normal. No mass. Kidneys and ureters: Unchanged size of the exophytic nodule measuring 18 x 12 mm at the posterior cortex of the right kidney interpolar region, attenuating at soft tissue density similar to adjacent renal parenchyma. Left extrarenal pelvis. No renal or ureteral calculi or obstruction bilaterally. Vascular calcifications in the bilateral kidneys. No distinct collecting system calculi. No ureteral calculi bilaterally. Stomach and bowel: Diffuse thickening of the gastric mucosa noted, a component of which is due to decompression. Otherwise, no bowel obstruction or acute inflammation. Appendix is normal. Moderate colonic stool burden. Appendix: See Stomach and bowel finding. Intraperitoneal space: Unremarkable. No free air. No significant fluid collection. Vasculature: Unremarkable. No abdominal aortic aneurysm. Lymph nodes: Unremarkable. No enlarged lymph nodes. Urinary bladder: Moderately distended. No distinct wall thickening or surrounding inflammatory change. Reproductive: Small fibroid anterior fundus. Bones/joints: Unremarkable. No acute fracture. Soft tissues: Unremarkable. IMPRESSION: 1. No renal or ureteral calculi or obstruction bilaterally. 2. Diffuse thickening of the gastric mucosa noted, a component of which is due to decompression. Recommend correlation for underlying gastritis. Otherwise, no bowel obstruction or acute inflammation. 3. Right renal 18 mm exophytic nodule attenuating at soft tissue density may represent hemorrhagic or proteinaceous cyst or neoplasm. Follow-up renal ultrasound or MRI can be obtained for complete evaluation. 4. There is diffuse mild subpleural ground-glass opacification in the dependent lower lobes. 6 mm subtle ground-glass nodule seen in the posterior right upper lobe. Mild diffuse interstitial prominence in the lung bases. Few scattered small (2-3 mm) nodules in the lungs. These may be infectious (including atypical) or inflammatory. Recommend imaging follow-up to resolution. Recommend CT Chest at 3-6 months. Subsequent management based on the most suspicious nodule(s). (Reference: Emma) References: Emma Lopes, et al. Guidelines for Management of Incidental Pulmonary Nodules Detected on CT Images: From the Fleischner Society 2017. Radiology. 2017;284(1):228-243. COMMENTS: Consistent with the [place] [employer]'s Incidental Findings Committee white paper (J Am Fabrizio Radiol 2018): Any incidental renal lesion less than 1 cm or classified as too small to characterize, or any incidental cystic renal lesion characterized as simple-appearing, is likely benign. No follow-up imaging is recommended for these lesions per consensus recommendations based on imaging criteria.
--- NOTE | 2024-08-10 12:19 | HMH.EDGENADL ---
Discharge Plan Disposition Patient Disposition: Home, Self-Care Prescriptions Prescriptions: No Action albuterol sulfate 90 mcg/actuation HFA aerosol inhaler 2 puff inhalation Q6HP PRN (Reason: Shortness Of Breath) Qty: 8.5 5RF Eliquis 5 mg tablet 5 mg PO BID 90 Days Qty: 180 4RF atorvastatin 20 mg tablet 20 mg PO DAILY 90 Days Qty: 90 4RF Vraylar 1.5 mg capsule 1.5 mg PO DAILY 90 Days Qty: 90 4RF escitalopram oxalate 20 mg tablet 20 mg PO DAILY Qty: 90 3RF mirabegron 50 mg tablet extended release 24 hr 50 mg PO DAILY Qty: 30 3RF midodrine 5 mg tablet 5 mg PO TID 3 Days Qty: 9 0RF oxybutynin chloride 10 mg tablet extended release 24hr 10 mg PO DAILY 90 Days Qty: 180 1RF Entresto 24-26 mg tablet 1 tab PO BID 90 Days Qty: 180 4RF Rx Instructions: TAKE ONE TABLET BY MOUTH 2 TIMES A DAY FOR HEART spironolactone 100 mg tablet 100 mg PO DAILY Qty: 90 4RF gabapentin 400 mg capsule 400 mg PO TID Qty: 90 1RF oxycodone 10 mg tablet 10 mg PO QID 30 Days Qty: 120 0RF oxycodone 10 mg tablet 10 mg PO Q6H PRN (Reason: pain) 30 Days Qty: 120 0RF alendronate [Fosamax] 70 mg tablet 70 mg PO WEEKLY Qty: 20 1RF furosemide 40 mg tablet 40 mg PO DAILY 90 Days Qty: 90 4RF ondansetron 8 mg tablet,disintegrating 8 mg PO Q8H Qty: 30 0RF docusate sodium [Colace] 100 mg capsule 100 mg PO HS Qty: 60 0RF loratadine 10 mg tablet See Rx Instructions .ROUTE .COMPLEX Qty: 30 0RF Dose Instruction: TAKE ONE TABLET BY MOUTH ONCE A DAY FOR ALLERGY SYMPTOMS Rx Instructions: TAKE ONE TABLET BY MOUTH ONCE A DAY FOR ALLERGY SYMPTOMS promethazine 12.5 mg tablet 12.5 mg PO TID PRN (Reason: nausea and vomiting) Qty: 30 0RF omeprazole 20 mg capsule,delayed release(DR/EC) 20 mg PO DAILY metoprolol succinate 25 mg tablet extended release 24 hr 25 mg PO DAILY magnesium oxide 400 mg (241.3 mg magnesium) Tablet 400 mg PO DAILY 30 Days Qty: 30 0RF Referrals Follow up/Referrals: Akhil Tyler DO [Primary Care Provider] - See instructions Activity Restrictions/Add. Instructions Additional Instructions/Restrictions: You were evaluated in the emergency department today. At this time, your labs are improved. Please contact your primary care provider to arrange follow-up for recheck. Return to the emergency department for new or worsening symptoms. Make sure that you stay hydrated. You were incidentally found to have a lung nodule as well as a nodule in your kidney. Please follow-up closely with your primary care provider for reassessment of these. Clinical Impressions Clinical Impression: Acute kidney injury superimposed on CKD, Hyperkalemia, Ground glass opacity present on imaging of lung, Lung nodule, Nodule of kidney Instructions Patient Instructions: DI for Hyperkalemia, DI for Acute Kidney Injury Print Language Print Language: German Discharge ED Provider: Tabby Ely General Adult HPI General Chief complaint: Recheck/Abnormal Lab/Rx Stated complaint: kidneys are not functioning-dr. tyler Time Seen by Provider: 08/10/24 11:54 History of Present Illness HPI narrative: This patient is a 68-year-old female with a history of CKD, chronic anemia, THC dependence, tobacco use, peripheral arterial disease, COPD, hypertension, hyperlipidemia, CHF, CAD, CVA, and A-fib on Eliquis presenting to the emergency department for evaluation with concern for abnormal labs. According the patient, she was called by her primary care doctor who told her that her kidneys were failing and her potassium was high, so she was told to come to the ED. She denies any recent changes or concerns or complaints. She states has been in her usual state of health. She has chronic back pain that radiates down both legs and chronic abdominal pain, for which she takes oral oxycodone. She is requesting a dose of that now because she forgot to take her oxycodone at home. She denies any other concerns such as fevers, chills, nausea, vomiting, changes in bowel movements, urinary symptoms, new acute pain, or other concerns. She notes she still had adequate oral intake. No recent changes in medications noted. On medical record review, it looks like her creatinine went from 1.2-2.5 from April to July and her potassium was 5.9. Related Data Home Medications ?Medication ?Instructions ?Recorded ?Confirmed metoprolol succinate 25 mg 25 mg PO DAILY 05/02/24 08/09/24 tablet,extended release 24 hr omeprazole 20 mg capsule,delayed 20 mg PO DAILY 05/02/24 08/09/24 release Previous Rx's ?Medication ?Instructions ?Recorded furosemide 40 mg tablet 40 mg PO DAILY 90 days #90 tabs 03/16/24 magnesium oxide 400 mg (241.3 mg 400 mg PO DAILY 30 days #30 tabs 05/05/24 magnesium) tablet docusate sodium 100 mg capsule 100 mg PO HS constipation #60 caps 05/18/24 (Colace) ondansetron 8 mg disintegrating 8 mg PO Q8H nausea and vomiting 05/18/24 tablet #30 tabs albuterol sulfate 90 mcg/actuation 2 puff inhalation Q6HP PRN 06/13/24 aerosol inhaler Shortness Of Breath #8.5 grams apixaban 5 mg tablet (Eliquis) 5 mg PO BID 90 days #180 tabs 06/13/24 atorvastatin 20 mg tablet 20 mg PO DAILY 90 days #90 tabs 06/13/24 cariprazine 1.5 mg capsule 1.5 mg PO DAILY 90 days #90 caps 06/13/24 (Vraylar) escitalopram oxalate 20 mg tablet 20 mg PO DAILY MOOD #90 tabs 06/13/24 midodrine 5 mg tablet 5 mg PO TID 3 days #9 tabs 06/13/24 mirabegron 50 mg tablet,extended 50 mg PO DAILY #30 tabs 06/13/24 release 24 hr oxybutynin chloride 10 mg 10 mg PO DAILY 90 days #180 tabs 06/13/24 tablet,extended release 24 hr sacubitril 24 mg-valsartan 26 mg 1 tab PO BID 90 days #180 tabs 06/13/24 tablet (Entresto) spironolactone 100 mg tablet 100 mg PO DAILY #90 tabs 06/13/24 loratadine 10 mg tablet See Rx Instructions .Route 06/27/24 .COMPLEX #30 tabs promethazine 12.5 mg tablet 12.5 mg PO TID PRN nausea and 07/25/24 vomiting #30 tabs alendronate 70 mg tablet (Fosamax) 70 mg PO WEEKLY #20 tabs 08/09/24 gabapentin 400 mg capsule 400 mg PO TID #90 caps 08/09/24 oxycodone 10 mg tablet 10 mg PO Q6H PRN pain 30 days #120 08/09/24 tabs oxycodone 10 mg tablet 10 mg PO QID MODERATE TO SEVERE 08/09/24 PAIN 30 days #120 tabs Allergies Allergy/AdvReac Type Severity Reaction Status Date / Time acetaminophen Allergy Unknown Unknown Verified 08/09/24 13:09 [From DARVOCET-N] allergy reaction codeine [CODEINE] Allergy Unknown Unknown Verified 08/09/24 13:09 allergy reaction propoxyphene Allergy Unknown Unknown Verified 08/09/24 13:09 [From DARVOCET-N] allergy reaction tomato AdvReac Mild Gastrointestinal Verified 08/09/24 13:09 Upset PFS PFS Disclaimer: The information contained in this section may have been updated after the patient was seen, as this information can be updated by other users. Medical History Anxiety Pacemaker Black stools Sepsis Left foot pain Acquired hammer toes of both feet Acquired hallux valgus of left foot Incurved toenail Neuropathy Callus of foot Primary osteoarthritis of both feet Fatigue Dizziness Near syncope Symptomatic bradycardia Bradycardia Abdominal pain Ischemic colitis CHF (congestive heart failure) Non-STEMI (non-ST elevated myocardial infarction) Atrial fibrillation with rapid ventricular response Acute renal failure Dehydration Urinary tract infection Sepsis CKD (chronic kidney disease) Diarrhea Dehydration DONNIE (acute kidney injury) COVID-19 Sinus bradycardia Viral cardiomyopathy Elevated white blood cell count, unspecified Renal insufficiency Takotsubo cardiomyopathy Elevated left ventricular end-diastolic pressure (LVEDP) Gastroenteritis ST elevation NM (STEMI) ADIEL (obstructive sleep apnea) TIA (transient ischemic attack) Facial droop Atypical angina HTN (hypertension) Edema Tobacco dependence syndrome Abnormal EKG COPD (chronic obstructive pulmonary disease) Chest pain Overweight (BMI 25.0-29.9) Trapezius muscle strain Pre-ulcerative calluses Lumbar disc disease with radiculopathy Lumbar foraminal stenosis Lumbar spondylosis Back Pain Patient states that the oxycodone has dramatically helped her back pain. We will continue with the current dose. PDMP and urine screens have been unremarkable except for the THC in the past. Dizziness Angina pectoris History of CVA (cerebrovascular accident) Solitary lung nodule Palpitations Dyspnea Tobacco user HLD (hyperlipidemia) HHD (hypertensive heart disease) Mitral valve regurgitation CAD (coronary artery disease) Surgical History Presence of cardiac pacemaker Family History Other No significant family history Social History Smoking Status: Current every day smoker tobacco type: cigarettes packs per day: 1 second hand exposure: Yes alcohol intake: never substance use type: denies use current occupational status: unemployed Travel in the last 8 weeks: None household members: family housing: house current occupational exposures/hazards: No caffeine: Yes Other Medical History Have you received the Flu Vaccine for this season: No Have you received the Pneumonia Vaccine: Yes ROS Obtained: Yes All systems reviewed & no additional complaints except as documented Physical Exam General General appearance: alert and in no apparent distress Head Head exam: atraumatic and normocephalic Eye Eye exam: Present normal appearance, PERRL and EOMI ENT ENT exam: Present normal exam, normal oropharynx, mucous membranes moist and normal external ear exam Neck Neck exam: Present normal inspection, full ROM and trachea midline; Absent tenderness Chest Chest inspection: Present normal inspection and symmetric chest wall rise; Absent tenderness Respiratory Respiratory exam: Present normal lung sounds bilaterally; Absent respiratory distress, wheezes, stridor or accessory muscle use Cardiovascular Cardiovascular exam: Present regular rate and normal rhythm Abdominal Exam Abdominal exam: Present soft; Absent distention, tenderness or guarding Extremities Exam Extremities exam: Present normal inspection, full ROM and normal capillary refill; Absent tenderness or edema Back Exam Back exam: Present normal inspection and full ROM; Absent tenderness Neurological Exam Neurological exam: Present alert, oriented X3, CN II-XII intact and normal gait; Absent motor sensory deficit Psychiatric Psychiatric exam: Present normal affect and normal mood Skin Skin exam: Present warm and dry Medical Decision Making Medical Records Medical records reviewed: Yes I reviewed the patient's medical records. Screening: Per USPSTF and CDC recommendations, given the prevalence of disease in our region, it is our hospital?s policy to screen for HIV and viral Hepatitis for all patients aged 18 and over and those with ongoing risk factors. Honorio Inquiry Pt receiving controlled substance: No Vital Signs: 08/10/24 11:47 08/10/24 12:30 08/10/24 12:49 Temperature 97.8 F Temperature Source Oral Pulse Rate 65 77 Pulse Rate [Left Radial] 62 Respiratory Rate 13 Blood Pressure 116/51 L 112/49 L Blood Pressure [Right Arm] 132/54 L Blood Pressure Mean [Right Arm] 80 02 Sat by Pulse Oximetry 97 97 97 Oxygen Delivery Method Room Air Room Air 08/10/24 12:59 08/10/24 14:27 Temperature 97.8 F Temperature Source Pulse Rate 60 61 Pulse Rate [Left Radial] Respiratory Rate 16 Blood Pressure 112/49 L 112/49 L Blood Pressure [Right Arm] Blood Pressure Mean [Right Arm] 02 Sat by Pulse Oximetry 97 Oxygen Delivery Method Room Air Room Air Lab Data Lab results reviewed: Yes I reviewed the patient's lab results. Lab Results 08/10/24 12:10: WBC 11.0 H, RBC 4.44, Hgb 12.8, Hct 38.1, MCV 85.9, MCH 28.9, MCHC 33.7, RDW 14.7, Plt Count 263, MPV 8.4, Neut % (Auto) 70.2, Lymph % (Auto) 18.4, [place] % (Auto) 5.8, Eos % (Auto) 4.7, Baso % (Auto) 0.8, Neut # (Auto) 7.7, Lymph # (Auto) 2.0, [place] # (Auto) 0.6, Eos # (Auto) 0.5 H, Baso # (Auto) 0.1, Sodium 141, Potassium 5.2 H, Chloride 104, Carbon Dioxide 29, Anion Gap 13.2, BUN 39 H, Creatinine 1.80 H D, Estimated Creat Clear 23, Estimated GFR 28 L, Est GFR ( Amer) 34 L D, Glucose 95, Calcium 9.8, Total Bilirubin 0.6, AST 22, ALT 11 L, Alkaline Phosphatase 77, Total Creatine Kinase 84, Total Protein 7.8, Albumin 4.7, Globulin 3.1, Albumin/Globulin Ratio 1.5 08/10/24 13:28: Urine Color Yellow, Urine Appearance Clear, Urine pH 7.0, Ur Specific [place] 1.010, Urine Protein Negative, Urine Glucose (UA) Negative, Urine Ketones Negative, Urine Blood Negative, Urine Nitrate Negative, Urine Bilirubin Negative, Urine Urobilinogen 0.2, Ur Leukocyte Esterase Negative, Urine RBC None, Urine WBC None, Ur Squamous Epith Cells 3-5, Urine Bacteria None 08/10/24 12:10 08/10/24 12:10 Orders (Tests/Meds): ED MEDICATIONS Discontinued Medications Generic Name Dose Route Start Last Admin Trade Name Maira PRN Reason Stop Dose Admin Oxycodone HCl 10 mg 08/10/24 12:19 08/10/24 12:27 Oxycodone 5mg Immediate Release Tablet PO 08/10/24 12:20 10 mg ONCE ONE Administration ORDERS Category Date Time Status CT abdomen pelvis wo con Stat Cat Scan 08/10/24 12:19 Completed CK [Creatine Kinase] Stat Lab 08/10/24 12:10 Completed Complete Blood Count Auto Diff Stat Lab 08/10/24 12:10 Completed Comprehensive Metabolic Panel Stat Lab 08/10/24 12:10 Completed HIV (1&2) Antibody Rapid Stat Lab 08/10/24 12:10 Received Hep C Ab with Reflex to RNA Stat Lab 08/10/24 12:10 Received UA [Urinalysis and Microscopic] Stat Lab 08/10/24 13:28 Completed ECG Data Tracing #1: I reviewed this ECG and interpreted as documented below: Atrially paced ventricular rate of [address] changes concerning for ischemia. No acute peaked T waves. ECG initial impression date: 08/10/24 ECG initial impression time: 12:18 Medical Decision Narrative: In summary, this patient is a 68 yo female presenting to the Emergency Department for evaluation of abnormal labs. Differential diagnoses considered include but are not limited to DONNIE, dehydration, postrenal obstruction, UTI, medication adverse reaction. Ruling out the most morbid conditions drove assessment. It should be noted patient's history includes CKD and extensive cardiovascular history which he or may not be at goal therapy. This complicates all aspects of care by increasing patient's risk for morbidity. I reviewed patient's past medical records and noted previous PCP evaluation and labs that were obtained yesterday as per HPI showing DONNIE on CKD and hyperkalemia. On exam, patient is lying in bed in no acute distress with complaints of her chronic pain but no acute concerns or abnormalities. Vitals are reassuring on cardiac telemetry. EKG was obtained without acute T wave changes. Workup included CBC, CMP, CK, urine, CT abdomen pelvis without IV contrast. I independently interpreted CT scan prior to the radiologist read and noted no obvious obstructive uropathy. Please see their read for final interpretation. Patient did have renal nodule as well as groundglass opacities and lung nodule. I notified her of these and advised that she follow-up closely outpatient with primary care for continued monitoring. She has no URI symptoms. labs were obtained that demonstrated improvement in creatinine and potassium. She has no EKG changes related to mild hyperkalemia, which appears to be likely chronic based on lab evaluation. On reassessment, the patient remains asymptomatic. She is tolerating oral intake without difficulty. At this time, I feel that she is appropriate for discharge home with continued PCP follow-up and management of her labs as an outpatient. She was given strict return precautions and was discharged after all questions were answered. Critical Care Critical Care Time Critical Care Time: No
[2024-08-10 12:26] LABS: Alanine Aminotransferase 11 U/L (12-78); Albumin Level 4.7 g/dl (3.5-5.0); Albumin/Globulin Ratio 1.5 (1.1-1.8); Alkaline Phosphatase 77 U/L (38-126); Anion Gap 13.2 mEq/L (5-15); Aspartate Amino Transferase 22 U/L (14-36); Bilirubin,Total 0.6 mg/dl (0.2-1.3); Blood Urea Nitrogen 39 mg/dl (7-17); Calcium 9.8 mg/dl (8.4-10.2); Carbon Dioxide 29 mmol/L (22.0-30.0); Chloride 104 mmol/L (98-107); Creatinine Clearance Estimated 23 mL/min (50-200); Estimated Glomerular Filt Rate 28 ml/min (>60); GFR (African American) 34 ML/MIN (>60); Globulin 3.1 g/dL (1.3-3.2); Glucose 95 mg/dl (74-100); Potassium 5.2 mmoL/L (3.5-5.1); Sodium 141 mmol/L (136-145); Total Protein,Serum 7.8 g/dl (6.3-8.2)
[2024-08-10] MEDS: OXYCODONE 5MG IMMEDIATE RELEASE TABLET 10 MG PO (12:27)
[2024-08-10 12:30] VITALS: BP 116/51; PULSE 65; O2SAT 97
[2024-08-10 12:49] VITALS: BP 112/49; PULSE 77; O2SAT 97
[2024-08-10 12:52] LABS: Creatine Kinase 84 U/L (30-135)
[2024-08-10 12:59] VITALS: BP 112/49; PULSE 60; O2SAT 97
[2024-08-10 13:31] LABS: Microscopic, Urine URINE MICROSCOPIC (MICROSCOPIC)
[2024-08-10 13:37] LABS: Appearance,Urine CLEAR (Clear); Bilirubin,Urine Negative (Negative); Blood, Urine Negative (Negative); Color,Urine YELLOW (Yellow); Glucose,Urine (UA) Negative (Negative); Ketones,Urine Negative (Negative); Leukocyte Esterase,Urine Negative (Negative); Nitrate,Urine Negative (Negative); Protein,Urine Negative (Negative); Urobilinogen,Urine 0.2 EU/dl (0.2)
--- NOTE | 2024-08-10 13:51 | PC.NURSE ---
Dietary called for tray.
[2024-08-10 14:27] VITALS: BP 112/49; PULSE 61; RESP 16; TEMP 36.6; O2SAT 98
[2024-08-10 16:33] LABS: HIV (1&2) Antibody Rapid NONREACTIVE (NONREACTIVE)
[2024-08-12 22:08] LABS: HCV Ab Reactive (Non Reactive)
== END 2024-08-10 14:38 | disposition home or self-care (01) ==
PROVIDERS: Emergency Provider Emergency Medicine; PCP Internal Medicine
DX: E87.5 Hyperkalemia (principal); N28.89 Other specified disorders of kidney and ureter; R91.8 Other nonspecific abnormal finding of lung field; N17.9 Acute kidney failure, unspecified; R91.1 Solitary pulmonary nodule; R79.9 Abnormal finding of blood chemistry, unspecified; M54.9 Dorsalgia, unspecified; R10.9 Unspecified abdominal pain; G89.4 Chronic pain syndrome
CPT/HCPCS: 74176; 80053; 81001; 82550; 85025; 86803; 87389; 93005; 99284

== ENCOUNTER 2024-11-03 09:06 | Outpatient (CLI) | payer MEDICARE, SELFPAY ==
[2024-11-03 18:37] LABS: Chloride 100 mmol/L (98-107); Sodium 133 mmol/L (136-145)
[2024-11-03 18:40] LABS: Alanine Aminotransferase 13 U/L (12-78); Albumin/Globulin Ratio 1.9 (1.1-1.8); Alkaline Phosphatase 100 U/L (38-126); Aspartate Amino Transferase 24 U/L (14-36); Bilirubin,Total 0.2 mg/dl (0.2-1.3); Blood Urea Nitrogen 47 mg/dl (7-17); Calcium 10.2 mg/dl (8.4-10.2); Carbon Dioxide 22 mmol/L (22.0-30.0); Chol/HDL Ratio 5.1 (1-3.5); Cholesterol 173 mg/dl (140-200); Estimated Glomerular Filt Rate 15 ml/min (>60); GFR (African American) 18 ML/MIN (>60); Globulin 2.7 g/dL (1.3-3.2); Glucose 99 mg/dl (74-100); HDL Cholesterol 34 mg/dl (40-60); Total Protein,Serum 7.7 g/dl (6.3-8.2); Triglycerides 203 mg/dl (30-150); VLDL Cholesterol 41 mg/dL (0-40)
[2024-11-03 18:51] LABS: Direct LDL Cholesterol 90.27 mg/dL (100-129)
[2024-11-03 19:11] LABS: Thyroid Stimulating Hormone 4.09 uIU/mL (0.465-4.68)
== END 2024-11-03 23:59 | disposition home or self-care (01) ==
LOC: LAB.DROPOF 11-04 09:07
PROVIDERS: PCP Internal Medicine; Visit Provider Internal Medicine
DX: Z00.00 Encounter for general adult medical examination without abnormal findings (principal); R93.89 Abnormal findings on diagnostic imaging of other specified body structures; E78.2 Mixed hyperlipidemia
CPT/HCPCS: 80053; 80061; 84443

== ENCOUNTER 2024-11-04 12:12 | Inpatient (IN) | payer MEDICARE, SELFPAY ==
[2024-11-04 12:13] VITALS: BP 120/59; PULSE 68; RESP 18; TEMP 36.8; O2SAT 98; BMI 22.8
--- NOTE | 2024-11-04 12:23 | CT_ITS ---
FINAL REPORT TECHNIQUE: Noncontrast exam This study was performed with techniques to keep radiation doses as low as reasonably achievable, (ALARA). Individualized dose reduction techniques using automated exposure control or adjustment of mA and/or kV according to the patient''s size were employed. CLINICAL HISTORY: lower abd pain COMPARISON: 05/02/2024 FINDINGS: Abdomen: Lung bases are clear. There is bilateral adrenal enlargement compatible with hyperplasia. Gallbladder is normal. Liver, spleen, and pancreas have a normal CT appearance in their limited unenhanced state. The There is an exophytic mass of the right kidney, slightly denser than that of a simple cyst, stable in size. This is likely a proteinaceous cyst. No ureteral stones are present. No bowel obstruction is identified. Pelvis: The appendix is normal. Uterus and ovaries are unremarkable. No distal ureteral stones are seen. Bladder is unremarkable. No fluid collection or adenopathy is seen. IMPRESSION: No acute findings. Chronic changes as above. Reviewed, Interpreted and Dictated by Usman Robles MD Transcribed by Trina Del Valle Authenticated and [facility]
--- NOTE | 2024-11-04 12:24 | ED_ITS ---
Discharge Plan Disposition Patient Disposition: Admitted Chief Complaint: PAIN Prescriptions Prescriptions: No Action Eliquis 5 mg tablet 5 mg PO BID 90 Days Qty: 180 4RF atorvastatin 20 mg tablet 20 mg PO DAILY 90 Days Qty: 90 4RF escitalopram oxalate 20 mg tablet 20 mg PO DAILY Qty: 90 3RF mirabegron 50 mg tablet extended release 24 hr 50 mg PO DAILY Qty: 30 3RF midodrine 5 mg tablet 5 mg PO TID 3 Days Qty: 9 0RF oxybutynin chloride 10 mg tablet extended release 24hr 10 mg PO DAILY 90 Days Qty: 180 1RF Entresto 24-26 mg tablet 1 tab PO BID 90 Days Qty: 180 4RF Rx Instructions: TAKE ONE TABLET BY MOUTH 2 TIMES A DAY FOR HEART spironolactone 100 mg tablet 100 mg PO DAILY Qty: 90 4RF oxycodone 10 mg tablet 10 mg PO Q6H PRN (Reason: pain) 30 Days Qty: 120 0RF alendronate [Fosamax] 70 mg tablet 70 mg PO WEEKLY Qty: 20 1RF gabapentin 400 mg capsule 400 mg PO TID 30 Days Qty: 90 1RF zolpidem 5 mg tablet 5 mg PO HS Qty: 30 1RF Vraylar 1.5 mg capsule 3 mg PO DAILY 90 Days Qty: 180 4RF lorazepam 0.5 mg tablet 0.5 mg PO DAILY PRN (Reason: anxiety) 30 Days Qty: 12 1RF furosemide 40 mg tablet 40 mg PO DAILY 90 Days Qty: 90 4RF ondansetron 8 mg tablet,disintegrating 8 mg PO Q8H Qty: 30 0RF docusate sodium [Colace] 100 mg capsule 100 mg PO HS Qty: 60 0RF promethazine 12.5 mg tablet 12.5 mg PO TID PRN (Reason: nausea and vomiting) Qty: 30 0RF albuterol sulfate 90 mcg/actuation HFA aerosol inhaler See Rx Instructions .ROUTE .COMPLEX Qty: 18 0RF Dose Instruction: INHALE 2 PUFFS BY MOUTH EVERY 6 HOURS NEEDED FOR SHORTNESS OF BREATH Rx Instructions: INHALE 2 PUFFS BY MOUTH EVERY 6 HOURS NEEDED FOR SHORTNESS OF BREATH loratadine 10 mg tablet See Rx Instructions .ROUTE .COMPLEX Qty: 30 0RF Dose Instruction: TAKE ONE TABLET BY MOUTH ONCE A DAY FOR ALLERGY SYMPTOMS Rx Instructions: TAKE ONE TABLET BY MOUTH ONCE A DAY FOR ALLERGY SYMPTOMS omeprazole 20 mg capsule,delayed release(DR/EC) See Rx Instructions .ROUTE .COMPLEX Qty: 90 4RF Dose Instruction: TAKE ONE CAPSULE BY MOUTH ONCE A DAY FOR ACID REFLUX Rx Instructions: TAKE ONE CAPSULE BY MOUTH ONCE A DAY FOR ACID REFLUX metoprolol succinate 25 mg tablet extended release 24 hr 25 mg PO DAILY magnesium oxide 400 mg (241.3 mg magnesium) Tablet 400 mg PO DAILY 30 Days Qty: 30 0RF Referrals Follow up/Referrals: Akhil Horner DO [Primary Care Provider] - See instructions Clinical Impressions Clinical Impression: DONNIE (acute kidney injury) Print Language Print Language: Frisian Discharge ED Provider: Greg Rice General Adult HPI General Chief complaint: PAIN Stated complaint: poss kidney failure Time Seen by Provider: 11/04/24 12:19 Mode of Arrival: Ambulatory Source of Information: Patient History of Present Illness HPI narrative: This is a 68-year-old female with a history of hypertension, hyperlipidemia, COPD, CKD who presents from PCP office with concern for renal failure. States that she followed up with PCP yesterday and got lab work drawn and got a call telling her to go to the hospital because of kidney failure. States that she has had nausea and vomiting since yesterday. States that she is still able to tolerate liquids, however she has decreased urine output and slight dysuria. Also reports suprapubic pain. Related Data Home Medications ?Medication ?Instructions ?Recorded ?Confirmed metoprolol succinate 25 mg 25 mg PO DAILY 05/02/24 11/03/24 tablet,extended release 24 hr Previous Rx's ?Medication ?Instructions ?Recorded furosemide 40 mg tablet 40 mg PO DAILY 90 days #90 tabs 03/16/24 magnesium oxide 400 mg (241.3 mg 400 mg PO DAILY 30 days #30 tabs 05/05/24 magnesium) tablet docusate sodium 100 mg capsule 100 mg PO HS constipation #60 caps 05/18/24 (Colace) ondansetron 8 mg disintegrating 8 mg PO Q8H nausea and vomiting 05/18/24 tablet #30 tabs apixaban 5 mg tablet (Eliquis) 5 mg PO BID 90 days #180 tabs 06/13/24 atorvastatin 20 mg tablet 20 mg PO DAILY 90 days #90 tabs 06/13/24 escitalopram oxalate 20 mg tablet 20 mg PO DAILY MOOD #90 tabs 06/13/24 midodrine 5 mg tablet 5 mg PO TID 3 days #9 tabs 06/13/24 mirabegron 50 mg tablet,extended 50 mg PO DAILY #30 tabs 06/13/24 release 24 hr oxybutynin chloride 10 mg 10 mg PO DAILY 90 days #180 tabs 06/13/24 tablet,extended release 24 hr sacubitril 24 mg-valsartan 26 mg 1 tab PO BID 90 days #180 tabs 06/13/24 tablet (Entresto) spironolactone 100 mg tablet 100 mg PO DAILY #90 tabs 06/13/24 promethazine 12.5 mg tablet 12.5 mg PO TID PRN nausea and 07/25/24 vomiting #30 tabs alendronate 70 mg tablet (Fosamax) 70 mg PO WEEKLY #20 tabs 08/09/24 oxycodone 10 mg tablet 10 mg PO Q6H PRN pain 30 days #120 08/09/24 tabs albuterol sulfate 90 mcg/actuation See Rx Instructions .Route 10/13/24 aerosol inhaler .COMPLEX #18 grams loratadine 10 mg tablet See Rx Instructions .Route 10/31/24 .COMPLEX #30 tabs omeprazole 20 mg capsule,delayed See Rx Instructions .Route 10/31/24 release .COMPLEX #90 caps cariprazine 1.5 mg capsule 3 mg (2 x 1.5 mg) PO DAILY 90 days 11/03/24 (Vraylar) #180 caps gabapentin 400 mg capsule 400 mg PO TID 30 days #90 caps 11/03/24 lorazepam 0.5 mg tablet 0.5 mg PO DAILY PRN anxiety 30 11/03/24 days #12 tabs zolpidem 5 mg tablet 5 mg PO HS #30 tabs 11/03/24 Allergies Allergy/AdvReac Type Severity Reaction Status Date / Time acetaminophen (From Allergy Unknown Unknown Verified 11/03/24 09:16 DARVOCET-N) allergy reaction codeine (CODEINE) Allergy Unknown Unknown Verified 11/03/24 09:16 allergy reaction propoxyphene (From Allergy Unknown Unknown Verified 11/03/24 09:16 DARVOCET-N) allergy reaction tomato AdvReac Mild Gastrointestinal Verified 11/03/24 09:16 Upset PFSH PFSH Disclaimer: The information contained in this section may have been updated after the patient was seen, as this information can be updated by other users. Medical History Anxiety Pacemaker Black stools Sepsis Left foot pain Acquired hammer toes of both feet Acquired hallux valgus of left foot Incurved toenail Neuropathy Callus of foot Primary osteoarthritis of both feet Fatigue Dizziness Near syncope Symptomatic bradycardia Bradycardia Abdominal pain Ischemic colitis CHF (congestive heart failure) Non-STEMI (non-ST elevated myocardial infarction) Atrial fibrillation with rapid ventricular response Acute renal failure Dehydration Urinary tract infection Sepsis CKD (chronic kidney disease) Diarrhea Dehydration DONNIE (acute kidney injury) COVID-19 Sinus bradycardia Viral cardiomyopathy Elevated white blood cell count, unspecified Renal insufficiency Takotsubo cardiomyopathy Elevated left ventricular end-diastolic pressure (LVEDP) Gastroenteritis ST elevation [place] (STEMI) ADIEL (obstructive sleep apnea) TIA (transient ischemic attack) Facial droop Atypical angina HTN (hypertension) Edema Tobacco dependence syndrome Abnormal EKG COPD (chronic obstructive pulmonary disease) Chest pain Overweight (BMI 25.0-29.9) Trapezius muscle strain Pre-ulcerative calluses Lumbar disc disease with radiculopathy Lumbar foraminal stenosis Lumbar spondylosis Back Pain Dizziness Angina pectoris History of CVA (cerebrovascular accident) Solitary lung nodule Palpitations Dyspnea Tobacco user HLD (hyperlipidemia) HHD (hypertensive heart disease) Mitral valve regurgitation CAD (coronary artery disease) Surgical History Presence of cardiac pacemaker Family History Other No significant family history Social History Smoking Status: Current every day smoker tobacco type: cigarettes packs per day: 1 second hand exposure: Yes alcohol intake: never substance use type: denies use current occupational status: unemployed Travel in the last 8 weeks: None household members: family housing: house current occupational exposures/hazards: No caffeine: Yes Have you lived/traveled outside US in past 30 days?: No Contact w/someone who lives/traveled outside US past 30 days?: No Exposure to someone with infectious disease in past 14 days?: No Do you have a fever (greater than 100.4 F or 38 C)?: No Have you tested positive for COVID-19: No Exposed to someone with COVID-19 in past 14 days?: No Do you have a sore throat?: No Do you have a cough?: No Do you have any weakness?: No Do you have any diarrhea?: No Are you experiencing any unusual bleeding?: No Do you have any muscle aches/pain?: Yes Do you have any abdominal pain?: No Are you experiencing loss of taste or smell?: No Other Medical History Have you received the Flu Vaccine for this season: No Have you received the Pneumonia Vaccine: No ROS Obtained: Yes All systems reviewed & no additional complaints except as documented Physical Exam General General appearance: alert and in no apparent distress Eye Eye exam: Present normal appearance, PERRL and EOMI Respiratory Respiratory exam: Present normal lung sounds bilaterally; Absent respiratory distress Cardiovascular Cardiovascular exam: Present regular rate and normal rhythm Abdominal Exam Abdominal exam: Present soft and distention; Absent tenderness, guarding or rebound Extremities Exam Extremities exam: Present normal inspection Neurological Exam Neurological exam: Present alert and oriented X3 Skin Skin exam: Present warm and dry Medical Decision Making Medical Records Medical records reviewed: Yes I reviewed the patient's medical records. Screening: Per USPSTF and CDC recommendations, given the prevalence of disease in our region, it is our hospital?s policy to screen for HIV and viral Hepatitis for all patients aged 18 and over and those with ongoing risk factors. MR Comment: PCP note from yesterday notable for follow-up with laboratory workup that revealed a creatinine of 3.10 from a baseline of 0.18, potassium of 6.0 Honorio Inquiry Pt receiving controlled substance: No Vital Signs: 11/04/24 12:13 Temperature 98.2 F Temperature Source Oral Pulse Rate [Right] 68 Respiratory Rate 18 Blood Pressure [Right Arm] 120/59 L Blood Pressure Mean [Right Arm] 79 Blood Pressure Source [Right Arm] Automatic Cuff 02 Sat by Pulse Oximetry 98 Oxygen Delivery Method Room Air Lab Data Lab Results 11/04/24 12:30: WBC 11.0 H, RBC 4.60, Hgb 12.7, Hct 39.6, MCV 86.1, MCH 27.6, MCHC 32.1, RDW 13.7, Plt Count 288, MPV 11.3 H, Neut % (Auto) 63.6, Lymph % (Auto) 21.7, [place] % (Auto) 7.2, Eos % (Auto) 6.2, Baso % (Auto) 0.7, Neut # (Auto) 7.0, Lymph # (Auto) 2.4, [place] # (Auto) 0.8, Eos # (Auto) 0.7 H, Baso # (Auto) 0.1, Sodium 131 L, Potassium 6.2 H*, Chloride 98, Carbon Dioxide 23, A nion Gap 16.2 H, BUN 52 H, Creatinine 3.30 H, Estimated Creat Clear 14, E stimated GFR 14 L*, Est GFR ( Amer) 17 L*, Glucose 122 H, Calcium 10.1, Total Bilirubin 0.5, AST 25, ALT 15, Alkaline Phosphatase 91, Total Protein 8.3 H, Albumin 5.0, Globulin 3.3 H, Albumin/Globulin Ratio 1.5 11/04/24 12:30 11/04/24 12:30 Orders (Tests/Meds): ED MEDICATIONS Generic Name Dose Route Start Last Admin Trade Name Freq PRN Reason Stop Dose Admin Dextrose 50 ml 11/04/24 13:31 Dextrose 50% 50ml Syringe (Crash Cart) IVP 11/04/24 13:32 ONCE ONE Calcium Gluconate/Sodium Chloride 2 gm in 100 mls @ 50 mls/hr 11/04/24 13:25 Calcium Gluconate 2,000mg/100ml Nacl Premix IV 11/04/24 15:24 ONCE ONE Insulin Human Regular 5 unit 11/04/24 13:35 Insulin Human Regular 100 Units/Ml 10ml Vial IVP 11/04/24 13:36 ONCE ONE Discontinued Medications Generic Name Dose Route Start Last Admin Trade Name Freq PRN Reason Stop Dose Admin Lactated Ringer's 1,000 mls @ 999 mls/hr 11/04/24 12:23 11/04/24 12:42 Lactated Ringer's 1000 Ml Bag IV 11/04/24 13:23 999 mls/hr .Q1H1M ONE Administration Dextrose/Water 500 mls @ 25 mls/hr 11/04/24 13:30 11/04/24 13:32 Dextrose 10% In Water 500ml IV 12/04/24 13:29 Not Given .Q20H OFE Insulin Human Lispro 5 unit 11/04/24 13:24 11/04/24 13:36 Humalog 100 Units/Ml 10ml Vial (Ssi) SUBCUT 11/04/24 13:25 Not Given ONCE ONE Ondansetron HCl 4 mg 11/04/24 12:23 11/04/24 12:42 Ondansetron 4mg/2ml Vial IV 11/04/24 12:24 4 mg ONCE ONE Administration Oxycodone HCl 10 mg 11/04/24 13:10 11/04/24 13:15 Oxycodone 5mg Immediate Release Tablet PO 11/04/24 13:11 10 mg ONCE ONE Administration ORDERS Category Date Time Status CT abdomen pelvis wo con Stat Cat Scan 11/04/24 12:23 Completed CBC w/Auto Diff [Complete Blood Count Auto Diff] Stat Lab 11/04/24 12:30 Completed CMP [Comprehensive Metabolic Panel] Stat Lab 11/04/24 12:30 Completed HIV Combo Stat Lab 11/04/24 12:30 Received Hepatitis C Ab Qual. W/ RFX Stat Lab 11/04/24 12:30 Received Urinalysis and Microscopic Stat Lab 11/04/24 12:24 Ordered ECG Data Tracing #1: I reviewed this ECG and interpreted as documented below: Normal sinus rhythm at a rate of 60, QTc 389, no STEMI, no peaked T waves Medical Decision Narrative: In summary, this 68-year-old female with a history of hypertension, hyperlipidemia, CKD presents to the emergency department today with concern for renal failure from PCP office. On initial evaluation patient is afebrile, nontoxic-appearing, hemodynamically stable. Differential diagnosis includes but is not limited to DONNIE, UTI, pyelonephritis, electrolyte abnormality. Based on these concerns, I ordered CBC, CMP, CT abdomen pelvis without IV contrast. Considered obtaining with IV contrast however risks outweigh the benefits in the setting of patient's declining renal function. Also obtain UA and EKG. ECG personally interpreted as noted above. Patient received 1 L of lactated Ringer's and Zofran for treatment. Labs personally reviewed demonstrate white blood cell count of 11, potassium of 6.2, creatinine of 3.3, BUN of 52. CT imaging personally interpreted demonstrates no evidence of hydronephrosis or other acute intra-abdominal pathology. Administered 5 units of insulin and dextrose as well as 2 g of calcium gluconate for hyperkalemia. I had an interactive discussion with hospital medicine who ultimately admitted the patient to the hospital. Critical Care Critical Care Time Critical Care Time: No
--- NOTE | 2024-11-04 12:38 | ECG_ITS ---
APPROVED REPORT Exam: Resting ECG HR:60 bpm ECG Measurements Heart Rate 60 AXES MT 136 P 64 QRSd 93 QRS 11 QT 387 T 47 QTc 389 Conclusion SINUS RHYTHM NORMAL ECG Electronically signed by : WOO MATHIS, 11/13/2024 06:50:46
--- NOTE | 2024-11-04 12:40 | PC.NURSE ---
ambulatory to CT with diagnostics tech
[2024-11-04] MEDS: LACTATED RINGERS 1000ML 1,000 ML 999 ML IV (12:42)
[2024-11-04] MEDS: ONDANSETRON 4MG/2ML VIAL 4 MG IV (12:42)
[2024-11-04 12:48] LABS: Basophils # 0.1 K/mm3 (0-0.2); Basophils % 0.7 % (0.1-2.0); Eosinophils # 0.7 K/mm3 (0.0-0.4); Eosinophils % 6.2 % (0.1-12.0); Hematocrit 39.6 % (37.0-47.0); Hemoglobin 12.7 g/dL (12.2-16.2); Lymphocytes # 2.4 K/mm3 (0.7-4.5); Lymphocytes % 21.7 % (10-50); Mean Corpuscular HGB Conc 32.1 g/dL (31.8-35.4); Mean Corpuscular Hemoglobin 27.6 pg (27.0-31.2); Mean Corpuscular Volume 86.1 fl (81-99); Mean Platelet Volume 11.3 fl (7.4-10.4); Monocytes # 0.8 K/mm3 (0.1-1.0); Monocytes % 7.2 % (1.7-9.3); Neutrophils % 63.6 % (37.0-80.0); Platelet Count 288 K/mm3 (142-424); Red Cell Distribution Width 13.7 % (11.5-17.5)
[2024-11-04 12:53] LABS: Chloride 98 mmol/L (98-107)
[2024-11-04 12:54] LABS: Sodium 131 mmol/L (136-145)
[2024-11-04 12:56] LABS: Alanine Aminotransferase 15 U/L (12-78); Anion Gap 16.2 mEq/L (5-15); Aspartate Amino Transferase 25 U/L (14-36); Blood Urea Nitrogen 52 mg/dl (7-17); Carbon Dioxide 23 mmol/L (22.0-30.0); Creatinine Clearance Estimated 14 mL/min (50-200); Estimated Glomerular Filt Rate 14 ml/min (>60); GFR (African American) 17 ML/MIN (>60)
[2024-11-04 12:57] LABS: Albumin/Globulin Ratio 1.5 (1.1-1.8); Alkaline Phosphatase 91 U/L (38-126); Bilirubin,Total 0.5 mg/dl (0.2-1.3); Calcium 10.1 mg/dl (8.4-10.2); Globulin 3.3 g/dL (1.3-3.2); Glucose 122 mg/dl (74-100); Total Protein,Serum 8.3 g/dl (6.3-8.2)
[2024-11-04 12:59] LABS: Potassium 6.2 mmoL/L (3.5-5.1)
--- NOTE | 2024-11-04 13:11 | PC.NURSE ---
MD aware of potassium of 6.2
[2024-11-04] MEDS: OXYCODONE 5MG IMMEDIATE RELEASE TABLET 10 MG PO ×2 (13:15→17:13)
[2024-11-04] MEDS: INSULIN HUMAN REGULAR 100 UNITS/ML 10ML VIAL 5 UNIT IVP (13:38)
[2024-11-04] MEDS: DEXTROSE 50% 50ML SYRINGE (CRASH CART) 50 ML IVP (13:39)
[2024-11-04] MEDS: CALCIUM GLUC IN NACL, ISO-OSM 2 GM/100 ML BAG IV (13:42)
[2024-11-04 14:00] VITALS: BP 116/74; PULSE 63; RESP 16; O2SAT 96
[2024-11-04 14:06] VITALS: BP 116/74; PULSE 74; RESP 16; TEMP 36.7; O2SAT 98
[2024-11-04 14:09] LABS: HIV Combo NEGATIVE (Negative)
[2024-11-04 14:17] LABS: Hepatitis C Ab Qual. W/ RFX REACTIVE (Negative)
[2024-11-04 15:00] VITALS: BP 120/51; PULSE 85; RESP 18; TEMP 36.4; O2SAT 91; BMI 22.4
[2024-11-04] MEDS: LACTATED RINGERS 1000ML 1,000 ML 75 ML IV (17:13)
--- NOTE | 2024-11-04 18:32 | PC.NURSE ---
pt having generalized pain, home pain meds ordered and administered with relief. pt asked to go outside to smoke a cigarette, told pt hospital policy and it is not recommended and offered a nicotine patch. pt ref the patch and said she can go without smoking stating a pack of cigarettes will last her 3 days. no issues and pt remained pleasant. no issues or concerns, cb and personal items within reach.
[2024-11-04 20:00] VITALS: BP 107/50; PULSE 60; RESP 16; TEMP 36.4; O2SAT 98
[2024-11-04] MEDS: APIXABAN 5MG TABLET 5 MG PO (20:19)
[2024-11-04] MEDS: PANTOPRAZOLE 40MG TABLET 40 MG PO (20:19)
[2024-11-04 21:39] LABS: Microscopic, Urine URINE MICROSCOPIC (MICROSCOPIC)
[2024-11-04 21:55] LABS: Appearance,Urine CLEAR (Clear); Bilirubin,Urine Negative (Negative); Blood, Urine TRACE-I (Negative); Color,Urine YELLOW (Yellow); Glucose,Urine (UA) Negative (Negative); Ketones,Urine Negative (Negative); Leukocyte Esterase,Urine Negative (Negative); Nitrate,Urine Negative (Negative); Protein,Urine Negative (Negative); Specific Gravity, Urine <= 1.005 (1.005-1.030); Urobilinogen,Urine 0.2 EU/dl (0.2)
--- NOTE | 2024-11-04 21:56 | EXP.HP ---
History of Present Illness *Admission Date: 11/05/24 *History of present illness: Yuridia Edwards is a 68-year-old female with a medical history significant for CKD stage IV, hyperkalemia, A-fib on Eliquis, HFpEF, anxiety/depression, GERD, overactive bladder who presents with several day history of not feeling well, nausea, poor appetite, dysuria. Workup in the ED significant for creatinine 3.3 (baseline around 1.8), potassium 6.2, and UA mildly suggestive of UTI. Case discussed with ED provider and decision made to admit patient for DONNIE on CKD, hyperkalemia. [facility] Disclaimer: The information contained in this section may have been updated after the patient was seen, as this information can be updated by other users. Medical History Anxiety Pacemaker Black stools Sepsis Left foot pain Acquired hammer toes of both feet Acquired hallux valgus of left foot Incurved toenail Neuropathy Callus of foot Primary osteoarthritis of both feet Fatigue Dizziness Near syncope Symptomatic bradycardia Bradycardia Abdominal pain Ischemic colitis CHF (congestive heart failure) Non-STEMI (non-ST elevated myocardial infarction) Atrial fibrillation with rapid ventricular response Acute renal failure Dehydration Urinary tract infection Sepsis CKD (chronic kidney disease) Diarrhea Dehydration DONNIE (acute kidney injury) COVID-19 Sinus bradycardia Viral cardiomyopathy Elevated white blood cell count, unspecified Renal insufficiency Takotsubo cardiomyopathy Elevated left ventricular end-diastolic pressure (LVEDP) Gastroenteritis ST elevation [place] (STEMI) ADIEL (obstructive sleep apnea) TIA (transient ischemic attack) Facial droop Atypical angina HTN (hypertension) Edema Tobacco dependence syndrome Abnormal EKG COPD (chronic obstructive pulmonary disease) Chest pain Overweight (BMI 25.0-29.9) Trapezius muscle strain Pre-ulcerative calluses Lumbar disc disease with radiculopathy Lumbar foraminal stenosis Lumbar spondylosis Back Pain Dizziness Angina pectoris History of CVA (cerebrovascular accident) Solitary lung nodule Palpitations Dyspnea Tobacco user HLD (hyperlipidemia) HHD (hypertensive heart disease) Mitral valve regurgitation CAD (coronary artery disease) Surgical History Presence of cardiac pacemaker Family History Other No significant family history Social History (Updated 11/04/24 @ 15:06 by Mandy Farrell RN) Smoking Status: Current every day smoker tobacco type: cigarettes packs per day: 1 second hand exposure: Yes alcohol intake: never substance use type: denies use current occupational status: unemployed Travel in the last 8 weeks: None household members: family housing: house current occupational exposures/hazards: No caffeine: Yes Have you lived/traveled outside [place] in past 30 days?: No Contact w/someone who lives/traveled outside US past 30 days?: No Exposure to someone with infectious disease in past 14 days?: No Do you have a fever (greater than 100.4 F or 38 C)?: No Have you tested positive for COVID-19: No Exposed to someone with COVID-19 in past 14 days?: No Do you have a sore throat?: No Do you have a cough?: No Do you have any weakness?: No Do you have any diarrhea?: No Are you experiencing any unusual bleeding?: No Do you have any muscle aches/pain?: Yes Do you have any abdominal pain?: No Are you experiencing loss of taste or smell?: No Other Medical History Have you received the Flu Vaccine for this season: Yes Have you received the Pneumonia Vaccine: No Meds Home Medications and Allergies Home Medications ?Medication ?Instructions ?Recorded ?Confirmed ?Type furosemide 40 mg tablet 40 mg PO DAILY 90 days #90 tabs 03/16/24 11/05/24 Rx docusate sodium 100 mg capsule 100 mg PO HS constipation #60 caps 05/18/24 11/05/24 Rx (Colace) apixaban 5 mg tablet (Eliquis) 5 mg PO BID 90 days #180 tabs 06/13/24 11/05/24 Rx atorvastatin 20 mg tablet 20 mg PO DAILY 90 days #90 tabs 06/13/24 11/05/24 Rx oxybutynin chloride 10 mg 10 mg PO DAILY 90 days #180 tabs 06/13/24 11/05/24 Rx tablet,extended release 24 hr sacubitril 24 mg-valsartan 26 mg 1 tab PO BID 90 days #180 tabs 06/13/24 11/05/24 Rx tablet (Entresto) spironolactone 100 mg tablet 100 mg PO DAILY #90 tabs 06/13/24 11/05/24 Rx alendronate 70 mg tablet (Fosamax) 70 mg PO WEEKLY #20 tabs 08/09/24 11/05/24 Rx cariprazine 1.5 mg capsule 3 mg (2 x 1.5 mg) PO DAILY 90 days 11/03/24 11/05/24 Rx (Vraylar) #180 caps gabapentin 400 mg capsule 400 mg PO TID 30 days #90 caps 11/03/24 11/05/24 Rx albuterol sulfate 90 mcg/actuation 2 puff inhalation Q6HP PRN 11/04/24 11/05/24 History aerosol inhaler Shortness Of Breath escitalopram oxalate 20 mg tablet 20 mg PO DAILY 11/04/24 11/05/24 History loratadine 10 mg tablet 10 mg PO DAILY 11/04/24 11/05/24 History mirabegron 50 mg tablet,extended 50 mg PO DAILY 11/04/24 11/05/24 History release 24 hr (Myrbetriq) omeprazole 20 mg capsule,delayed 20 mg PO DAILY 11/04/24 11/05/24 History release oxycodone 10 mg tablet 10 mg PO TIDP PRN Severe Pain 11/04/24 11/05/24 History (Scale Score 7-10) lorazepam 0.5 mg tablet 0.5 mg PO DAILYP PRN Anxiety 11/05/24 11/05/24 History zolpidem 5 mg tablet 5 mg PO HS 11/05/24 11/05/24 History New Prescriptions to Start Prescriptions: Allergies Allergy/AdvReac Type Severity Reaction Status Date / Time acetaminophen (From Allergy Unknown Unknown Verified 11/03/24 09:16 DARVOCET-N) allergy reaction codeine (CODEINE) Allergy Unknown Unknown Verified 11/03/24 09:16 allergy reaction propoxyphene (From Allergy Unknown Unknown Verified 11/03/24 09:16 DARVOCET-N) allergy reaction tomato AdvReac Mild Gastrointestinal Verified 11/03/24 09:16 Upset Exam Data for Last 24 hours Vital signs and Labs for Last 24 Hours: Temp Pulse Resp BP Pulse Ox O2 Del Method 97.6 F 60 16 107/50 L 98 Room Air 11/04/24 20:00 11/04/24 20:00 11/04/24 20:00 11/04/24 20:00 11/04/24 20:00 11/04/24 20:00 Laboratory Results - last 24 hr 11/04/24 12:30: WBC 11.0 H, RBC 4.60, Hgb 12.7, Hct 39.6, MCV 86.1, MCH 27.6, MCHC 32.1, RDW 13.7, Plt Count 288, MPV 11.3 H, Neut % (Auto) 63.6, Lymph % (Auto) 21.7, [place] % (Auto) 7.2, Eos % (Auto) 6.2, Baso % (Auto) 0.7, Neut # (Auto) 7.0, Lymph # (Auto) 2.4, [place] # (Auto) 0.8, Eos # (Auto) 0.7 H, Baso # (Auto) 0.1, Sodium 131 L, Potassium 6.2 H*, Chloride 98, Carbon Dioxide 23, Anion Gap 16.2 H, BUN 52 H, Creatinine 3.30 H, Estimated Creat Clear 14, Estimated GFR 14 L*, Est GFR ( Amer) 17 L*, Glucose 122 H, Calcium 10.1, Total Bilirubin 0.5, AST 25, ALT 15, Alkaline Phosphatase 91, Total Protein 8.3 H, Albumin 5.0, Globulin 3.3 H, Albumin/Globulin Ratio 1.5, HCV Ab ROBE w/Rflx PCR Qn Reactive, HIV Ag/Ab Combo Qual Negative I & O for Last 24 hours: Intake & Output 11/01/24 11/02/24 11/03/24 11/04/24 23:59 23:59 23:59 23:59 Intake Total 1335 / 1335 Output Total 0 / 0 Balance 1335 / 1335 Weight 55.792 kg Constitutional Constitutional: no acute distress *Routine HEENT Exam Head: Present normocephalic Eye: Present EOMI and PERRL ENT: Present mucous membranes moist *Routine Neck Exam Neck: Present supple; Absent lymphadenopathy *Routine Respiratory Exam Respiratory: Present CTA bilaterally *Routine Cardiovascular Exam Cardiovascular: Present RRR *Routine Abdominal Exam Abdominal: Present soft and normoactive bowel sounds; Absent tenderness *Routine Rectal Exam Rectal:: deferred *Routine Genitalia Exam Genitalia:: deferred *Routine Extremities Exam Extremities: Absent cyanosis, clubbing or edema *Routine Skin Exam Skin: Present warm; Absent rash *Routine Neurological Exam Neurological: Present alert and oriented X3 Assessment and Plan *Assessment and plan (1) Hyperkalemia: Status: Acute Category: Medical Code(s): E87.5 - Hyperkalemia (2) DONNIE (acute kidney injury): Status: Acute Category: Medical Code(s): N17.9 - Acute kidney failure, unspecified Plan Yuridia Edwards is a 68-year-old female with a medical history significant for CKD stage IV, hyperkalemia, A-fib on Eliquis, HFpEF, anxiety/depression, GERD, overactive bladder who presents with several day history of not feeling well, nausea, poor appetite, dysuria. Workup in the ED significant for creatinine 3.3 (baseline around 1.8), potassium 6.2, and UA mildly suggestive of UTI. Case discussed with ED provider and decision made to admit patient for DONNIE on CKD, hyperkalemia. #DONNIE on CKD IV - Presented with urinary symptoms, nausea, poor appetite. ? Initial creatinine 3.3, baseline around 1.8. ? Initial potassium 6.2. ? Patient states has been having hyperkalemia for a long time, but likely due to CKD. ? EKG without acute T wave changes. IV calcium gluconate, D50 with regular 5 units insulin, 1 L LR bolus given in the ED. ? Continue LR at 75 mL/h. Patient is tolerating oral intake, encourage oral rehydration. ? Continuous cardiac telemetry. ? Follow-up BMP. ? Hold home Entresto, spironolactone, Lasix at this time in setting of DONNIE, hyperkalemia. #UTI ? Patient endorsed dysuria for several days, poor appetite. ? UA somewhat suggestive of UTI. ? IV ceftriaxone day 1. ? Follow-up urine culture. #A-fib ? Currently rate controlled. ? Continue home Eliquis. #HFpEF ? No signs of overload, actually looks dehydrated. ? Hold home Entresto, spironolactone, Lasix in the setting of DONNIE, hyperkalemia as above. ? Will benefit from discontinue Entresto, spironolactone due to chronic hyperkalemia. Full code DVT prophylaxis: Lovenox 30 mg
[2024-11-04 22:13] LABS: RBC,Urine Occasional #/hpf (0-3)
[2024-11-04 22:14] LABS: Bacteria,Urine 1+ /lpf
[2024-11-05] VITALS (7 sets, daily range): BP systolic 98–149; BP diastolic 40–61; PULSE 60–75; RESP 16–18; TEMP 36.4–37; O2SAT 93–98; BMI 24.3
--- NOTE | 2024-11-05 00:18 | PC.NURSE ---
Was notified that pt bp was 91/42. A manual was done that revealed 98/40. Hospitalist notified and an order for a 500ml bolus of LR was ordered for now and again in 2 hours.
[2024-11-05] MEDS: RINGERS SOLUTION,LACTATED 500 ML 999 ML IV (00:22)
[2024-11-05] MEDS: RINGERS SOLUTION,LACTATED 500 ML IV (03:13)
[2024-11-05] MEDS: LACTATED RINGERS 1000ML 1,000 ML 75 ML IV (03:41)
[2024-11-05 08:25] LABS: Alanine Aminotransferase 10 U/L (12-78); Albumin Level 3.9 g/dl (3.5-5.0); Albumin/Globulin Ratio 1.6 (1.1-1.8); Alkaline Phosphatase 72 U/L (38-126); Anion Gap 13.5 mEq/L (5-15); Aspartate Amino Transferase 20 U/L (14-36); Blood Urea Nitrogen 46 mg/dl (7-17); Calcium 9.5 mg/dl (8.4-10.2); Carbon Dioxide 26 mmol/L (22.0-30.0); Chloride 103 mmol/L (98-107); Creatinine Clearance Estimated 19 mL/min (50-200); Estimated Glomerular Filt Rate 17 ml/min (>60); GFR (African American) 21 ML/MIN (>60); Globulin 2.5 g/dL (1.3-3.2); Glucose 94 mg/dl (74-100); Magnesium 2.1 mg/dl (1.6-2.3); Sodium 136 mmol/L (136-145); Total Protein,Serum 6.4 g/dl (6.3-8.2)
[2024-11-05 08:31] LABS: Basophils # 0.1 K/mm3 (0-0.2); Eosinophils # 0.7 K/mm3 (0.0-0.4); Hematocrit 33.5 % (37.0-47.0); Mean Corpuscular HGB Conc 31.6 g/dL (31.8-35.4); Neutrophils # 5.3 K/mm3 (1.8-7.8); Red Cell Distribution Width 13.8 % (11.5-17.5); White Blood Count 9.6 K/mm3 (4.8-10.8)
[2024-11-05 08:51] LABS: Basophils % 0.7 % (0.1-2.0); Lymphocytes # 2.8 K/mm3 (0.7-4.5); Lymphocytes % 29.1 % (10-50); Mean Corpuscular Volume 88.4 fl (81-99); Mean Platelet Volume 11.7 fl (7.4-10.4); Monocytes # 0.8 K/mm3 (0.1-1.0); Monocytes % 8.2 % (1.7-9.3); Neutrophils % 54.8 % (37.0-80.0); Platelet Count 236 K/mm3 (142-424); Red Blood Count 3.79 M/mm3 (4.20-5.40)
[2024-11-05 08:55] LABS: Bilirubin,Total < 0.1 mg/dl (0.2-1.3); Potassium 6.5 mmoL/L (3.5-5.1)
--- NOTE | 2024-11-05 09:38 | HMH.PHAINT1 ---
Pharmacy Intervention Comments: MEDICATION RECONCILIATION COMPLETE USING EXTERNAL PHARMACY FILL HISTORY, VIRI REPORT, AND RECENT MD OFFICE VISIT NOTE (OCT 2024).
[2024-11-05] MEDS: CITALOPRAM 40MG TABLET 40 MG PO (09:39)
[2024-11-05] MEDS: APIXABAN 5MG TABLET 5 MG PO ×2 (09:39→20:22)
[2024-11-05] MEDS: DEXTROSE 50% 50ML SYRINGE (CRASH CART) 50 ML IVP ×2 (09:40→16:25)
[2024-11-05] MEDS: OXYCODONE 5MG IMMEDIATE RELEASE TABLET 10 MG PO ×3 (09:40→20:23)
[2024-11-05] MEDS: CEFTRIAXONE 1 GM 1 GM in 0.9 % SODIUM CHLORIDE 50 ML IV (09:40)
[2024-11-05] MEDS: LACTATED RINGERS 1000ML 1,000 ML 999 ML IV (09:42)
[2024-11-05] MEDS: INSULIN HUMAN REGULAR 100 UNITS/ML 10ML VIAL 10 UNIT IVP ×2 (09:42→16:25)
[2024-11-05 10:27] LABS: Hemoglobin 10.6 g/dL (12.2-16.2)
[2024-11-05 10:42] LABS: POC Glucose,Bedside 85 (70-110)
[2024-11-05] MEDS: MYRBETRIQ 50 MG 1 EACH PO (11:31)
[2024-11-05 14:10] LABS: Chloride 103 mmol/L (98-107); Sodium 131 mmol/L (136-145)
[2024-11-05 14:13] LABS: Blood Urea Nitrogen 40 mg/dl (7-17); Creatinine Clearance Estimated 24 mL/min (50-200); Estimated Glomerular Filt Rate 23 ml/min (>60); GFR (African American) 28 ML/MIN (>60); Potassium 6.6 mmoL/L (3.5-5.1)
[2024-11-05 14:14] LABS: Anion Gap 11.6 mEq/L (5-15); Calcium 9.2 mg/dl (8.4-10.2); Carbon Dioxide 23 mmol/L (22.0-30.0); Glucose 118 mg/dl (74-100)
[2024-11-05] MEDS: LOKELMA 5GM PACKET 10 GM PO ×2 (14:31→20:22)
--- NOTE | 2024-11-05 14:32 | ECG_ITS ---
APPROVED REPORT Exam: Resting ECG HR:60 bpm ECG Measurements Heart Rate 60 AXES NM 202 P 146 QRSd 101 QRS 1 QT 406 T 21 QTc 406 Conclusion ELECTRONIC ATRIAL PACEMAKER POSSIBLE ANTERIOR MYOCARDIAL INFARCTION , PROBABLY OLD [30 ms Q WAVE IN V3/V4, OR R < 0.2 mV IN V4] ABNORMAL RHYTHM ECG UNCONFIRMED REPORT Electronically signed by : Rafy Weston MD 11/06/2024 10:51:22
[2024-11-05] MEDS: VRAYLAR 3 MG 1 EACH PO (14:35)
[2024-11-05] MEDS: POLYETHYLENE GLYCOL 3350 17 GM PACKET PO (14:35)
--- NOTE | 2024-11-05 15:18 | EXP.PN ---
Subjective *Date: 11/05/24 *Time: 16:03 Interval history: Patient feels better today, appetite improved. Ambulating independently. However, continues to be hyperkalemic without arrhythmias. Exam Data for Last 24 hours Vital signs and Labs for Last 24 Hours: Temp Pulse Resp BP Pulse Ox O2 Del Method 98 F 70 18 123/61 98 Room Air 11/05/24 11:38 11/05/24 12:00 11/05/24 11:38 11/05/24 11:38 11/05/24 11:38 11/05/24 11:38 Laboratory Results - last 24 hr 11/04/24 21:35: Urine Color Yellow, Urine Appearance Clear, Urine pH 6.0, Ur Specific [place] <= 1.005, Urine Protein Negative, Urine Glucose (UA) Negative, Urine Ketones Negative, Urine Blood Trace-i, Urine Nitrate Negative, Urine Bilirubin Negative, Urine Urobilinogen 0.2, Ur Leukocyte Esterase Negative, Urine RBC Occasional, Urine WBC 3-5, Ur Squamous Epith Cells 3-5, Urine Bacteria 1+ 11/05/24 07:52: WBC 9.6, RBC 3.79 L, Hgb 10.6 L D, Hct 33.5 L, MCV 88.4, MCH 28.0, MCHC 31.6 L, RDW 13.8, Plt Count 236, MPV 11.7 H, Neut % (Auto) 54.8, Lymph % (Auto) 29.1, [place] % (Auto) 8.2, Eos % (Auto) 7.0, Baso % (Auto) 0.7, Neut # (Auto) 5.3, Lymph # (Auto) 2.8, [place] # (Auto) 0.8, Eos # (Auto) 0.7 H, Baso # (Auto) 0.1, Sodium 136, Potassium 6.5 H*, Chloride 103, Carbon Dioxide 26, Anion Gap 13.5, BUN 46 H, Creatinine 2.70 H, Estimated Creat Clear 19, Estimated GFR 17 L*, Est GFR ( Amer) 21 L D, Glucose 94 D, Calcium 9.5, Magnesium 2.1, Total Bilirubin < 0.1 L, AST 20, ALT 10 L D, Alkaline Phosphatase 72, Total Protein 6.4, Albumin 3.9 D, Globulin 2.5, Albumin/Globulin Ratio 1.6 11/05/24 10:36: POC Glucose 85 11/05/24 13:50: Sodium 131 L, Potassium 6.6 H*, Chloride 103, Carbon Dioxide 23, Anion Gap 11.6, BUN 40 H, Creatinine 2.10 H D, Estimated Creat Clear 24, Estimated GFR 23 L, Est GFR ( Amer) 28 L D, Glucose 118 H D, Calcium 9.2 I & O for Last 24 hours: Intake & Output 11/02/24 11/03/24 11/04/24 11/05/24 23:59 23:59 23:59 23:59 Intake Total 1335 / 1635 2960 / 2960 Output Total 0 / 0 400 / 400 Balance 1335 / 1635 2560 / 2560 Weight 55.792 kg 59.965 kg Constitutional Constitutional: no acute distress *Routine HEENT Exam Head: Present normocephalic Eye: Present EOMI and PERRL ENT: Present mucous membranes moist *Routine Neck Exam Neck: Present supple; Absent lymphadenopathy *Routine Respiratory Exam Respiratory: Present CTA bilaterally *Routine Cardiovascular Exam Cardiovascular: Present RRR *Routine Abdominal Exam Abdominal: Present soft and normoactive bowel sounds; Absent tenderness *Routine Extremities Exam Extremities: Absent cyanosis, clubbing or edema *Routine Skin Exam Skin: Present warm; Absent rash *Routine Neurological Exam Neurological: Present alert and oriented X3 Assessment and Plan *Assessment and plan (1) Hyperkalemia: Status: Acute Category: Medical Code(s): E87.5 - Hyperkalemia (2) DONNIE (acute kidney injury): Status: Acute Category: Medical Code(s): N17.9 - Acute kidney failure, unspecified Plan Yuridia Edwards is a 68-year-old female with a medical history significant for CKD stage IV, hyperkalemia, A-fib on Eliquis, HFpEF, anxiety/depression, GERD, overactive bladder who presents with several day history of not feeling well, nausea, poor appetite, dysuria. Workup in the ED significant for creatinine 3.3 (baseline around 1.8), potassium 6.2, and UA mildly suggestive of UTI. Case discussed with ED provider and decision made to admit patient for DONNIE on CKD, hyperkalemia. #DONNIE on CKD IV #Hyperkalemia - Presented with urinary symptoms, nausea, poor appetite. ? Initial creatinine 3.3, baseline around 1.8. ? Initial potassium 6.2. ? Creatinine improved to 2.1 after fluid resuscitation. However, potassium 6.2. ? D50 with 10 units of regular insulin administered, potassium unfortunately worsened to 6.6. EKG again without T wave changes. ? Started Lokelma 10 mg 3 times daily, sodium bicarb 650 twice daily. Bicarb currently low normal at 23. ? Will give an additional 10 units regular insulin, with D50. ? Follow-up repeat BMP at 6 PM. ? Patient states has been having hyperkalemia for a long time, but likely due to CKD and concomitant Entresto, spironolactone. ? Continuous cardiac telemetry. ? Hold home Entresto, spironolactone, Lasix at this time in setting of DONNIE, hyperkalemia. ? Patient will need referral to nephrology on discharge. #UTI ? Patient endorsed dysuria for several days, poor appetite. ? UA somewhat suggestive of UTI. ? IV ceftriaxone day 2. ? Patient's appetite is improved, back to normal. ? Follow-up urine culture. #A-fib ? Currently rate controlled. ? Continue home Eliquis. #HFpEF ? No signs of overload, actually looks dehydrated. ? Hold home Entresto, spironolactone, Lasix in the setting of DONNIE, hyperkalemia as above. ? Will benefit from discontinue Entresto, spironolactone due to chronic hyperkalemia. Full code DVT prophylaxis: Lovenox 30 mg
[2024-11-05] MEDS: CALCIUM GLUC IN NACL, ISO-OSM 1 GM/50 ML BAG IV (16:25)
[2024-11-05 18:09] LABS: POC Glucose,Bedside 55 (70-110)
[2024-11-05 18:09] LABS: POC Glucose,Bedside 99 (70-110)
[2024-11-05 18:27] LABS: Chloride 104 mmol/L (98-107)
[2024-11-05 18:28] LABS: Potassium 5.3 mmoL/L (3.5-5.1); Sodium 135 mmol/L (136-145)
[2024-11-05 18:30] LABS: Blood Urea Nitrogen 37 mg/dl (7-17); Creatinine Clearance Estimated 24 mL/min (50-200); Estimated Glomerular Filt Rate 23 ml/min (>60); GFR (African American) 28 ML/MIN (>60)
[2024-11-05 18:31] LABS: Anion Gap 12.3 mEq/L (5-15); Calcium 9.9 mg/dl (8.4-10.2); Carbon Dioxide 24 mmol/L (22.0-30.0); Glucose 107 mg/dl (74-100)
[2024-11-05] MEDS: ATORVASTATIN 20MG TABLET 20 MG PO (20:22)
[2024-11-05] MEDS: PANTOPRAZOLE 40MG TABLET 40 MG PO (20:22)
[2024-11-05] MEDS: SODIUM BICARBONATE 650MG TABLET 650 MG PO (20:22)
[2024-11-06] VITALS: BP 129/48; PULSE 60; RESP 20; TEMP 36.4; O2SAT 98
[2024-11-06 04:00] VITALS: BP 137/63; PULSE 60; PULSE 64; RESP 20; TEMP 36.4; O2SAT 98; BMI 24.2
[2024-11-06 08:00] VITALS: BP 113/57; PULSE 60; PULSE 65; RESP 17; TEMP 36.6; O2SAT 98
[2024-11-06 09:10] LABS: Basophils # 0.1 K/mm3 (0-0.2); Basophils % 0.9 % (0.1-2.0); Eosinophils # 0.6 K/mm3 (0.0-0.4); Eosinophils % 7.8 % (0.1-12.0); Hematocrit 37.3 % (37.0-47.0); Hemoglobin 11.7 g/dL (12.2-16.2); Lymphocytes # 1.8 K/mm3 (0.7-4.5); Lymphocytes % 22.4 % (10-50); Mean Corpuscular HGB Conc 31.4 g/dL (31.8-35.4); Mean Corpuscular Hemoglobin 27.6 pg (27.0-31.2); Mean Platelet Volume 11.4 fl (7.4-10.4); Monocytes # 0.6 K/mm3 (0.1-1.0); Monocytes % 7.3 % (1.7-9.3); Neutrophils # 4.9 K/mm3 (1.8-7.8); Neutrophils % 61.4 % (37.0-80.0); Platelet Count 242 K/mm3 (142-424); Red Blood Count 4.24 M/mm3 (4.20-5.40); Red Cell Distribution Width 13.8 % (11.5-17.5); White Blood Count 8.1 K/mm3 (4.8-10.8)
[2024-11-06] MEDS: OXYCODONE 5MG IMMEDIATE RELEASE TABLET 10 MG PO ×2 (09:45→12:57)
[2024-11-06] MEDS: CITALOPRAM 40MG TABLET 40 MG PO (09:45)
[2024-11-06] MEDS: SODIUM BICARBONATE 650MG TABLET 650 MG PO ×2 (09:46→12:53)
[2024-11-06] MEDS: VRAYLAR 3 MG 1 EACH PO (09:46)
[2024-11-06] MEDS: MYRBETRIQ 50 MG 1 EACH PO (09:46)
[2024-11-06] MEDS: APIXABAN 5MG TABLET 5 MG PO (09:46)
[2024-11-06] MEDS: CEFTRIAXONE 1 GM 1 GM in 0.9 % SODIUM CHLORIDE 50 ML IV (09:48)
[2024-11-06 10:08] LABS: Albumin Level 4.2 g/dl (3.5-5.0); Chloride 110 mmol/L (98-107); Sodium 136 mmol/L (136-145)
[2024-11-06 10:11] LABS: Alanine Aminotransferase 12 U/L (12-78); Albumin/Globulin Ratio 1.5 (1.1-1.8); Alkaline Phosphatase 78 U/L (38-126); Anion Gap 10.4 mEq/L (5-15); Aspartate Amino Transferase 29 U/L (14-36); Bilirubin,Total 0.4 mg/dl (0.2-1.3); Blood Urea Nitrogen 29 mg/dl (7-17); Calcium 10.1 mg/dl (8.4-10.2); Carbon Dioxide 22 mmol/L (22.0-30.0); Creatinine Clearance Estimated 31 mL/min (50-200); Estimated Glomerular Filt Rate 32 ml/min (>60); GFR (African American) 39 ML/MIN (>60); Globulin 2.8 g/dL (1.3-3.2); Glucose 105 mg/dl (74-100); Magnesium 1.7 mg/dl (1.6-2.3)
[2024-11-06 10:16] LABS: Potassium 6.4 mmoL/L (3.5-5.1)
[2024-11-06] MEDS: POLYETHYLENE GLYCOL 3350 17 GM PACKET PO (10:19)
[2024-11-06] MEDS: LOKELMA 5GM PACKET 10 GM PO ×2 (10:19→12:53)
[2024-11-06] MEDS: FUROSEMIDE 40 MG TABLET PO (10:47)
[2024-11-06] MEDS: DEXTROSE 50% 50ML SYRINGE (CRASH CART) 50 ML IVP (10:47)
[2024-11-06] MEDS: INSULIN HUMAN REGULAR 100 UNITS/ML 10ML VIAL 10 UNIT IVP (10:48)
[2024-11-06 10:54] LABS: Creatine Kinase 80 U/L (30-135)
[2024-11-06 10:55] LABS: Phosphorous 3.3 mg/dl (2.5-4.5)
[2024-11-06 12:00] VITALS: BP 135/50; PULSE 60; PULSE 63; RESP 18; TEMP 36.4; O2SAT 96
[2024-11-06 12:32] LABS: POC Glucose,Bedside 55 (70-110)
[2024-11-06 15:55] LABS: Chloride 101 mmol/L (98-107); Potassium 5.6 mmoL/L (3.5-5.1); Sodium 133 mmol/L (136-145)
[2024-11-06 15:58] LABS: Anion Gap 12.6 mEq/L (5-15); Blood Urea Nitrogen 25 mg/dl (7-17); Calcium 9.6 mg/dl (8.4-10.2); Carbon Dioxide 25 mmol/L (22.0-30.0); Creatinine Clearance Estimated 33 mL/min (50-200); Estimated Glomerular Filt Rate 34 ml/min (>60); GFR (African American) 42 ML/MIN (>60); Glucose 110 mg/dl (74-100)
[2024-11-06 16:00] VITALS: PULSE 70
--- NOTE | 2024-11-06 16:06 | EXP.DC.SUM ---
General Admission date:: 11/04/24 HPI HPI HPI: Yuridia Edwards is a 68-year-old female with a medical history significant for CKD stage IV, hyperkalemia, A-fib on Eliquis, HFpEF, anxiety/depression, GERD, overactive bladder who presents with several day history of not feeling well, nausea, poor appetite, dysuria. Workup in the ED significant for creatinine 3.3 (baseline around 1.8), potassium 6.2, and UA mildly suggestive of UTI. Case discussed with ED provider and decision made to admit patient for DONNIE on CKD, hyperkalemia. Hospital Course Hospital Course Hospital Course: Yuridia Edwards is a 68-year-old female with a medical history significant for CKD stage IV, hyperkalemia, A-fib on Eliquis, HFpEF, anxiety/depression, GERD, overactive bladder who presents with several day history of not feeling well, nausea, poor appetite, dysuria. Workup in the ED significant for creatinine 3.3 (baseline around 1.8), potassium 6.2, and UA mildly suggestive of UTI. Case discussed with ED provider and decision made to admit patient for DONNIE on CKD, hyperkalemia. #DONNIE on CKD III #Hyperkalemia - Presented with urinary symptoms, nausea, poor appetite. ? Initial creatinine 3.3, baseline around 1.8. Initial potassium 6.2. - Creatinine gradually improved with IV and oral rehydration. However, continued to be hyperkalemic during admission. - Hyperkalemia, up to 6.5, treated with regular insulin with D50, sodium bicarb tabs for CKD, Lokelma, and home Lasix. EKG without acute T-wave changes, but given calcium gluconate prophylactically. - Potassium improved to 5.6. CKD and home medications such as Entresto, spironolactone, alendronate likely contributing. - Referred to nephrology for close follow-up. - Discharged with sodium bicarb 650mg BID, Lokelma 10g daily, Lasix 40mg daily. Disctonued home Entresto, spironolactone due to persistent hyperkalemia. #UTI ? Discharged with cefdinir for 3 more days. #A-fib ? Currently rate controlled. ? Continue home Eliquis. #HFpEF ? No signs of overload. ? Hold home Entresto, spironolactone in the setting of hyperkalemia as above. ? Will benefit from discontinue Entresto, spironolactone due to chronic hyperkalemia. - Continue Lasix 40mg. Total time spent on discharge: 35 minutes on chart review, counseling, documentation, and direct care with patient. Exam Data for Last 24 hours Vital signs and Labs for Last 24 Hours: Temp Pulse Resp BP Pulse Ox O2 Del Method 97.5 F L 63 18 135/50 L 96 Room Air 11/06/24 12:00 11/06/24 12:00 11/06/24 12:00 11/06/24 12:00 11/06/24 12:00 11/06/24 13:00 Laboratory Results - last 24 hr 11/04/24 12:30: Hepatitis C Ab Note Comment, HCV RNA (PCR) IU log10 TNP 11/05/24 17:36: POC Glucose 55 L 11/05/24 18:02: POC Glucose 99 11/05/24 18:10: Sodium 135 L, Potassium 5.3 H, Chloride 104, Carbon Dioxide 24, Anion Gap 12.3, BUN 37 H, Creatinine 2.10 H, Estimated Creat Clear 24, Estimated GFR 23 L, Est GFR ( Amer) 28 L, Glucose 107 H, Calcium 9.9 11/06/24 08:40: WBC 8.1, RBC 4.24, Hgb 11.7 L, Hct 37.3, MCV 88.0, MCH 27.6, MCHC 31.4 L, RDW 13.8, Plt Count 242, MPV 11.4 H, Neut % (Auto) 61.4, Lymph % (Auto) 22.4, [place] % (Auto) 7.3, Eos % (Auto) 7.8, Baso % (Auto) 0.9, Neut # (Auto) 4.9, Lymph # (Auto) 1.8, [place] # (Auto) 0.6, Eos # (Auto) 0.6 H, Baso # (Auto) 0.1, Sodium 136, Potassium 6.4 H* D, Chloride 110 H, Carbon Dioxide 22, Anion Gap 10.4, BUN 29 H, Creatinine 1.60 H D, Estimated Creat Clear 31, Estimated GFR 32 L, Est GFR ( Amer) 39 L D, Glucose 105 H, Calcium 10.1, Phosphorus 3.3, Magnesium 1.7 D, Total Bilirubin 0.4, AST 29 D, ALT 12, Alkaline Phosphatase 78, Total Creatine Kinase 80, Total Protein 7.0, Albumin 4.2, Globulin 2.8, Albumin/Globulin Ratio 1.5 11/06/24 12:21: POC Glucose 55 L 11/06/24 15:30: Sodium 133 L, Potassium 5.6 H, Chloride 101, Carbon Dioxide 25, Anion Gap 12.6, BUN 25 H, Creatinine 1.50 H, Estimated Creat Clear 33, Estimated GFR 34 L, Est GFR ( Amer) 42 L, Glucose 110 H, Calcium 9.6 I & O for Last 24 hours: Intake & Output 11/03/24 11/04/24 11/05/24 11/06/24 23:59 23:59 23:59 23:59 Intake Total 1335 / 1635 2960 / 3310 810 / 810 Output Total 0 / 0 400 / 400 0 / 0 Balance 1335 / 1635 2560 / 2910 810 / 810 Weight 55.792 kg 59.965 kg 59.783 kg Constitutional Constitutional: no acute distress *Routine HEENT Exam Head: Present normocephalic Eye: Present EOMI and PERRL ENT: Present mucous membranes moist *Routine Neck Exam Neck: Present supple; Absent lymphadenopathy *Routine Respiratory Exam Respiratory: Present CTA bilaterally *Routine Cardiovascular Exam Cardiovascular: Present RRR *Routine Abdominal Exam Abdominal: Present soft and normoactive bowel sounds; Absent tenderness *Routine Extremities Exam Extremities: Absent cyanosis, clubbing or edema *Routine Skin Exam Skin: Present warm; Absent rash *Routine Neurological Exam Neurological: Present alert and oriented X3 Results Data Completed and Pending Labs on day of discharge: Labs from last 24 hours 11/06/24 11/06/24 11/06/24 15:30 12:21 08:40 WBC 8.1 RBC 4.24 Hgb 11.7 L Hct 37.3 MCV 88.0 MCH 27.6 MCHC 31.4 L RDW 13.8 Plt Count 242 MPV 11.4 H Neut % (Auto) 61.4 Lymph % (Auto) 22.4 [place] % (Auto) 7.3 Eos % (Auto) 7.8 Baso % (Auto) 0.9 Neut # (Auto) 4.9 Lymph # (Auto) 1.8 [place] # (Auto) 0.6 Eos # (Auto) 0.6 H Baso # (Auto) 0.1 Sodium 133 L 136 Potassium 5.6 H 6.4 H* D Chloride 101 110 H Carbon Dioxide 25 22 Anion Gap 12.6 10.4 BUN 25 H 29 H Creatinine 1.50 H 1.60 H D Estimated Creat Clear 33 31 Estimated GFR 34 L 32 L Est GFR ( Amer) 42 L 39 L D Glucose 110 H 105 H POC Glucose 55 L Calcium 9.6 10.1 Phosphorus 3.3 Magnesium 1.7 D Total Bilirubin 0.4 AST 29 D ALT 12 Alkaline Phosphatase 78 Total Creatine Kinase 80 Total Protein 7.0 Albumin 4.2 Globulin 2.8 Albumin/Globulin Ratio 1.5 Hepatitis C Ab Note HCV RNA (PCR) IU log10 11/05/24 11/05/24 11/05/24 18:10 18:02 17:36 WBC RBC Hgb Hct MCV MCH MCHC RDW Plt Count MPV Neut % (Auto) Lymph % (Auto) [place] % (Auto) Eos % (Auto) Baso % (Auto) Neut # (Auto) Lymph # (Auto) [place] # (Auto) Eos # (Auto) Baso # (Auto) Sodium 135 L Potassium 5.3 H Chloride 104 Carbon Dioxide 24 Anion Gap 12.3 BUN 37 H Creatinine 2.10 H Estimated Creat Clear 24 Estimated GFR 23 L Est GFR ( Amer) 28 L Glucose 107 H POC Glucose 99 55 L Calcium 9.9 Phosphorus Magnesium Total Bilirubin AST ALT Alkaline Phosphatase Total Creatine Kinase Total Protein Albumin Globulin Albumin/Globulin Ratio Hepatitis C Ab Note HCV RNA (PCR) IU log10 11/04/24 12:30 WBC RBC Hgb Hct MCV MCH MCHC RDW Plt Count MPV Neut % (Auto) Lymph % (Auto) [place] % (Auto) Eos % (Auto) Baso % (Auto) Neut # (Auto) Lymph # (Auto) [place] # (Auto) Eos # (Auto) Baso # (Auto) Sodium Potassium Chloride Carbon Dioxide Anion Gap BUN Creatinine Estimated Creat Clear Estimated GFR Est GFR ( Amer) Glucose POC Glucose Calcium Phosphorus Magnesium Total Bilirubin AST ALT Alkaline Phosphatase Total Creatine Kinase Total Protein Albumin Globulin Albumin/Globulin Ratio Hepatitis C Ab Note Comment HCV RNA (PCR) IU log10 TNP DS: Diagnosis Discharge Diagnosis (1) Hyperkalemia: Status: Acute Code(s): E87.5 - Hyperkalemia (2) DONNIE (acute kidney injury): Status: Acute Code(s): N17.9 - Acute kidney failure, unspecified Meds Home Medications and Allergies Home Medications ?Medication ?Instructions ?Recorded ?Confirmed ?Type furosemide 40 mg tablet 40 mg PO DAILY 90 days #90 tabs 03/16/24 11/05/24 Rx docusate sodium 100 mg capsule 100 mg PO HS constipation #60 caps 05/18/24 11/05/24 Rx (Colace) apixaban 5 mg tablet (Eliquis) 5 mg PO BID 90 days #180 tabs 06/13/24 11/05/24 Rx atorvastatin 20 mg tablet 20 mg PO DAILY 90 days #90 tabs 06/13/24 11/05/24 Rx cariprazine 1.5 mg capsule 3 mg (2 x 1.5 mg) PO DAILY 90 days 11/03/24 11/05/24 Rx (Vraylar) #180 caps albuterol sulfate 90 mcg/actuation 2 puff inhalation Q6HP PRN 11/04/24 11/05/24 History aerosol inhaler Shortness Of Breath escitalopram oxalate 20 mg tablet 20 mg PO DAILY 11/04/24 11/05/24 History loratadine 10 mg tablet 10 mg PO DAILY 11/04/24 11/05/24 History omeprazole 20 mg capsule,delayed 20 mg PO DAILY 11/04/24 11/05/24 History release lorazepam 0.5 mg tablet 0.5 mg PO DAILYP PRN Anxiety 11/05/24 11/05/24 History zolpidem 5 mg tablet 5 mg PO HS 11/05/24 11/05/24 History cefdinir 300 mg capsule 300 mg PO BID 3 days #6 caps 11/06/24 Rx gabapentin 400 mg capsule 400 mg PO BID 30 days #90 caps 11/06/24 11/05/24 Rx sodium bicarbonate 650 mg tablet 650 mg PO BID 30 days #60 tabs 11/06/24 Rx sodium zirconium cyclosilicate 5 10 g PO DAILY 30 days #30 ea 11/06/24 Rx gram oral powder packet (Lokelma) mirabegron 50 mg tablet,extended 50 mg PO DAILY #90 tabs 11/08/24 Rx release 24 hr (Myrbetriq) oxybutynin chloride 10 mg 10 mg PO DAILY #30 tabs 11/08/24 Rx tablet,extended release 24 hr oxycodone 10 mg tablet 10 mg PO TIDP PRN Severe Pain 11/09/24 Rx (Scale Score 7-10) #90 tabs New Prescriptions to Start Prescriptions: juliannair Akhil Lundy sodium bicarbonate Akhil Lundy sodium zirconium cyclosilicate [Lokelma] Akhil Lundy Allergies Allergy/AdvReac Type Severity Reaction Status Date / Time acetaminophen (From Allergy Unknown Unknown Verified 11/03/24 09:16 DARVOCET-N) allergy reaction codeine (CODEINE) Allergy Unknown Unknown Verified 11/03/24 09:16 allergy reaction propoxyphene (From Allergy Unknown Unknown Verified 11/03/24 09:16 DARVOCET-N) allergy reaction tomato AdvReac Mild Gastrointestinal Verified 11/03/24 09:16 Upset Discharge Plan Disposition Patient Disposition: Home, Self-Care Condition: Fair Discharge Order Discharge Orders: Discharge Order (Routine); Ordered 11/06/24 Ordered By: Akhil Lundy Follow up Plan Follow up with: Akhil Horner DO [Primary Care Provider] - Enter time for follow up (please call for appointment.) Kishore Ramos MD [Consulting Physician] - 11/07/24 (please call for appointment.) Prescriptions/Medication Reconciliation: New sodium bicarbonate 650 mg Tablet 650 mg PO BID 30 Days Qty: 60 0RF Lokelma 5 gram Powder In Packet 10 g PO DAILY 30 Days Qty: 30 0RF cefdinir 300 mg capsule 300 mg PO BID 3 Days Qty: 6 0RF Continued Eliquis 5 mg tablet 5 mg PO BID 90 Days Qty: 180 4RF atorvastatin 20 mg tablet 20 mg PO DAILY 90 Days Qty: 90 4RF Vraylar 1.5 mg capsule 3 mg PO DAILY 90 Days Qty: 180 4RF furosemide 40 mg tablet 40 mg PO DAILY 90 Days Qty: 90 4RF docusate sodium [Colace] 100 mg capsule 100 mg PO HS Qty: 60 0RF omeprazole 20 mg capsule,delayed release(DR/EC) 20 mg PO DAILY albuterol sulfate 90 mcg/actuation HFA aerosol inhaler 2 puff inhalation Q6HP PRN (Reason: Shortness Of Breath) loratadine 10 mg tablet 10 mg PO DAILY escitalopram oxalate 20 mg tablet 20 mg PO DAILY lorazepam 0.5 mg Tablet 0.5 mg PO DAILYP PRN (Reason: Anxiety) zolpidem 5 mg Tablet 5 mg PO HS Changed gabapentin 400 mg capsule 400 mg PO BID 30 Days Qty: 90 1RF Discontinued oxybutynin chloride 10 mg tablet extended release 24hr 10 mg PO DAILY 90 Days Qty: 180 1RF Entresto 24-26 mg tablet 1 tab PO BID 90 Days Qty: 180 4RF spironolactone 100 mg tablet 100 mg PO DAILY Qty: 90 4RF alendronate [Fosamax] 70 mg tablet 70 mg PO WEEKLY Qty: 20 1RF No Action oxybutynin chloride 10 mg tablet extended release 24hr 10 mg PO DAILY Qty: 30 2RF mirabegron [Myrbetriq] 50 mg tablet extended release 24 hr 50 mg PO DAILY Qty: 90 3RF oxycodone 10 mg tablet 10 mg PO TIDP PRN (Reason: Severe Pain (Scale Score 7-10)) Qty: 90 0RF Problem Reconciliation Problems Reviewed?: Yes Patient Discharge Instructions Patient Instructions: Acute Kidney Injury, DI for Hyperkalemia Print Language: Kiswahili Providers Primary Care Provider: Akhil Horner Admit Provider: Akhil Lundy Attending Provider: Akhil Lundy
--- NOTE | 2024-11-07 10:03 | SW/DCPLANNER ---
Spoke with patients brother on the phone. Patients brother stated that she is doing good. Patients brother stated that he was able to cook pickled meat her medicine and that there was only one that keesha didnt have the right miligram. Patients brother stated that they were calling her primary care provider to schedule a follow up appointment. Patients brother didnt know she was to discontinue certain medicine and went over the medicine and spelled them out for patients brother to write them down. Patient brother stated that they have no concerns or questions at this time. Billy SAUCEDO Compensation Consulting Manager
== END 2024-11-06 17:45 | disposition home or self-care (01) | DRG 683 ==
LOC: ER 13:42 → 2ND 13:45
PROVIDERS: Admitting Provider Student in an Organized Health Care Education/Training Program; Emergency Provider Student in an Organized Health Care Education/Training Program; PCP Internal Medicine; Visit Provider Student in an Organized Health Care Education/Training Program
DX: N17.9 Acute kidney failure, unspecified (principal); I13.0 Hypertensive heart and chronic kidney disease with heart failure and stage 1 through stage 4 chronic kidney disease, or unspecified chronic kidney disease; I50.32 Chronic diastolic (congestive) heart failure; N39.0 Urinary tract infection, site not specified; E87.5 Hyperkalemia; N18.4 Chronic kidney disease, stage 4 (severe); F17.210 Nicotine dependence, cigarettes, uncomplicated; I25.10 Atherosclerotic heart disease of native coronary artery without angina pectoris; F41.9 Anxiety disorder, unspecified; M47.896 Other spondylosis, lumbar region; F32.A Depression, unspecified; N32.81 Overactive bladder; K21.9 Gastro-esophageal reflux disease without esophagitis; J44.9 Chronic obstructive pulmonary disease, unspecified; E78.5 Hyperlipidemia, unspecified; M48.061 Spinal stenosis, lumbar region without neurogenic claudication; I25.2 Old myocardial infarction; I48.91 Unspecified atrial fibrillation; Z79.899 Other long term (current) drug therapy; Z95.0 Presence of cardiac pacemaker; Z79.51 Long term (current) use of inhaled steroids; Z79.01 Long term (current) use of anticoagulants; Z86.73 Personal history of transient ischemic attack (TIA), and cerebral infarction without residual deficits
CPT/HCPCS: 36415; 74176; 80048; 80053; 81001; 82550; 82962; 83735; 84100; 85025; 86803; 87086; 87389; 87522; 93005; 99285; J0696; J2405; J7120

== ENCOUNTER 2024-12-08 15:15 | Outpatient (CLI) | payer MEDICARE, SELFPAY ==
[2024-12-08 19:25] LABS: Basophils # 0.1 K/mm3 (0-0.2); Basophils % 0.7 % (0.1-2.0); Eosinophils # 0.5 K/mm3 (0.0-0.4); Eosinophils % 4.9 % (0.1-12.0); Hemoglobin 12.6 g/dL (12.2-16.2); Lymphocytes # 2.6 K/mm3 (0.7-4.5); Lymphocytes % 25.4 % (10-50); Mean Corpuscular HGB Conc 31.5 g/dL (31.8-35.4); Mean Corpuscular Hemoglobin 27.9 pg (27.0-31.2); Mean Corpuscular Volume 88.7 fl (81-99); Mean Platelet Volume 12.6 fl (7.4-10.4); Monocytes # 0.6 K/mm3 (0.1-1.0); Monocytes % 6.2 % (1.7-9.3); Neutrophils # 6.3 K/mm3 (1.8-7.8); Neutrophils % 62.5 % (37.0-80.0); Platelet Count 244 K/mm3 (142-424); Red Blood Count 4.51 M/mm3 (4.20-5.40); Red Cell Distribution Width 13.4 % (11.5-17.5); White Blood Count 10.1 K/mm3 (4.8-10.8)
[2024-12-08 19:59] LABS: Chloride 99 mmol/L (98-107); Potassium 5.4 mmoL/L (3.5-5.1); Sodium 141 mmol/L (136-145)
[2024-12-08 20:02] LABS: Alanine Aminotransferase 14 U/L (12-78); Albumin/Globulin Ratio 1.7 (1.1-1.8); Alkaline Phosphatase 102 U/L (38-126); Anion Gap 16.4 mEq/L (5-15); Aspartate Amino Transferase 24 U/L (14-36); Bilirubin,Total 0.5 mg/dl (0.2-1.3); Blood Urea Nitrogen 29 mg/dl (7-17); Carbon Dioxide 31 mmol/L (22.0-30.0); Estimated Glomerular Filt Rate 37 ml/min (>60); GFR (African American) 45 ML/MIN (>60); Glucose 89 mg/dl (74-100)
[2024-12-08 20:40] LABS: C-Reactive Protein 1.6 mg/L (0-4)
== END 2024-12-08 23:59 | disposition home or self-care (01) ==
LOC: LAB.DROPOF 12-09 09:58
PROVIDERS: PCP Internal Medicine; Visit Provider Internal Medicine
DX: N18.32 Chronic kidney disease, stage 3b (principal); E87.1 Hypo-osmolality and hyponatremia
CPT/HCPCS: 80053; 85025; 86140; 87086; 87088; 87186

== ENCOUNTER 2025-04-01 18:47 | Observation (INO) | payer MEDICARE, SELFPAY ==
[2025-04-01] VITALS (17 sets, daily range): BP systolic 106–202; BP diastolic 60–100; PULSE 71–106; RESP 17–32; TEMP 36.4–36.5; O2SAT 90–98; BMI 21.9; BMI 22.1
--- NOTE | 2025-04-01 18:50 | ECG_ITS ---
APPROVED REPORT Exam: Resting ECG HR:101 bpm ECG Measurements Heart Rate 101 AXES HI 127 P 75 QRSd 96 QRS 49 QT 358 T -39 QTc 416 Conclusion SINUS TACHYCARDIA POSSIBLE RIGHT ATRIAL ENLARGEMENT [0.25mV P-WAVE] ST DEVIATION AND MODERATE T-WAVE ABNORMALITY, CONSIDER INFERIOR ISCHEMIA [-0.1+ mV T-WAVE IN II/aVF] ABNORMAL ECG Electronically signed by : SUSHILA PERSAUD, 04/03/2025 07:03:01
--- OUTSIDE RECORDS SUMMARY | 2025-04-01 18:53 | XMS_ITS | Encounter Summary ---
Author Organization Healthcare Address [address] [place] [address] Care Team Providers Care Admissions Officer Name Role Phone Ronald Gr MD Primary Care Provider [phone] Encounter Details Date Type Department Care Team (Late st Contact Info) Description 11/06/2023 Orders Only External Location [address] [place] [address] Provider, External Social History Tobacco Use Types Packs/Day Years Used Date Smoking Tobacco: Every Day Cigarettes Last attempted to quit: 11/2021 Passive Smoke Exposure: Past Smokeless Tobacco: Never Alcohol Use Standard Drinks/Week Comments No 0 (1 standard drink = 0.6 oz pur e alcohol) PHQ-2 Answer Date Recorded Patient Health Questionnaire-2 Score 0 07/01/2022 Comments Unknown Sex and Gender Information Value Date Recorded Sex Assigned at Not on file Legal Sex Female 6:00 PM EDT Gender Identity Not on file Sexual Orientation Not on file documented as of this encounter Functional Status * Are you deaf or do you have serious difficulty hearing? Answer Date of Assessment Author No 06/09/2022 3:20 PM EDT Arnoldo Berry Are you blind or do you have serious difficulty seeing, even when wearing glasses? Answer Date of Assessment Author No 06/09/2022 3:20 PM EDT Arnoldo Berry * Do you have serious difficulty walking or climbing stairs? Answer Date of Assessment Author No 06/09/2022 3:20 PM EDT Arnoldo Berry * Do you have serious difficulty dressing or bathing? Answer Date of Assessment Author No 06/09/2022 3:20 PM EDT Arnoldo Berry * Because of a physical, mental, or emotional condition, do you have serious difficulty doing errandsalone such as visiting the doctor? Answer Date of Assessment Author No 06/09/2022 3:20 PM EDT Arnoldo Berry documented as of this encounter Mental Status * Because of a physical, mental, or emotional condition, do you have serious difficulty concentrating, remembering, or making decisions? (5 years old or older) Answer Entry Date Author No 06/09/2022 3:20 PM EDT Arnoldo Berry documented in this encounter Plan of Treatment Not on file documented as of this encounter Procedures Procedure Name Priority Date/Time Associated Diagnosis Comments CT OUTSIDE IMAGES 11/06/2023 12:47 PM EST documented in this encounter Results * CT OUTSIDE IMAGES (11/06/2023 12:47 PM EST) Anatomical Region Laterality Modality Computed Tomogra phy 11/06/2023 12:4 7 PM EST us External Provider IMG CT PROCEDURES Final Result documented in this encounter Visit Diagnoses Not on filedocumented in this encounter Additional Health Concerns Assessment Noted Time A fall risk assessment has been complete d for the patient 06/29/2023 11:36 AM EDT documented as of this encounter Care Teams Admissions Officer Relationship Specialty Start Date End Date Ronald Gr MD [address] [place] [address] PCP - General 03/01/21 documented as of this encounter
--- OUTSIDE RECORDS SUMMARY | 2025-04-01 18:53 | XMS_ITS | Encounter Summary ---
Author Organization Healthcare Address [address] [place] [address] Care Team Providers Care Pocket Setter Name Role Phone Ronald Gr MD Primary Care Provider [phone] Aniyah Duke LPN Unavailable Unavailab le Encounter Details Date Type Department Care Team ([facility] st Contact Info) Description 05/27/2022 Orders Only External Location [address] [place] [address] Ronald Gr MD [address] [id number] Social History Tobacco Use Types Packs/Day Years Used Date Smoking Tobacco: Former Cigarettes Q uit: 11/2021 Smokeless Tobacco: Never Alcohol Use Standard Drinks/Week Comments No 0 (1 standard drink = 0.6 oz pur e alcohol) PHQ-2 Answer Date Recorded Patient Health Questionnaire-2 Score 1 12/16/2021 Comments Unknown Sex and Gender Information Value Date Recorded Sex Assigned at Not on file Legal Sex Female 6:00 PM EDT Gender Identity Not on file Sexual Orientation Not on file COVID-19 Exposure Response Date Recorded In the last 10 days, have yo u been in contact with someone who was confirmed or suspected to have Coronavirus/COVID-19? No / Unsure 05/30/2022 1:25 AM EDT documented as of this encounter Functional Status * Calculated C-SSRS Risk Score (Lifetime/Recent) Answer Date of Assessment Author No Risk Indicated 05/30/2022 8:00 AM EDT Alise Gonzalez * Question Answer Date of Assessment Author 1. Wish to be (Past 1 Month) No 022 8:00 AM EDT Alise Goznalez 2. Non-Specific Active Suici josé miguel Thoughts (Past 1 Month) No 05/30/2022 8:00 AM EDT Alise Gonzalez 6. Suicidal Behavior (Lifetime) No 8:00 AM EDT Alise Gonzalez documented as of this encounter Plan of Treatment Not on file documented as of this encounter Procedures Procedure Name Priority Date/Time Associated Diagnosis Comments XR THORACIC OUTSIDE IMAGES 05/27/2022 9:05 AM EDT documented in this encounter Results * XR THORACIC OUTSIDE IMAGES (05/27/2022 9:05 AM EDT) Anatomical Region Laterality Modality Radiographic Anne Marie ging 05/27/2022 9:05 AM EDT Ronald Gr MD IMG XR PROCEDURES Final Resu lt documented in this encounter Visit Diagnoses Not on filedocumented in this encounter Additional Health Concerns Infection Onset Date Last Indicated Resolved Time C. difficile Rule-Out 06/06/2022 06/06/20222021 7:20 PM EDT Assessment Noted Time A fall risk assessment has been complete d for the patient 12/16/2021 3:35 PM EST documented as of this encounter Care Teams Pocket Setter Relationship Specialty Start Date End Date Ronald Gr MD [address] [place] [address] PCP - General 03/01/21 Aniyah Duke LPN [employer] [place] [address] TCM Nurse 06/10/22 07/10/22 documented as of this encounter
--- OUTSIDE RECORDS SUMMARY | 2025-04-01 18:53 | XMS_ITS | Clinical Summary ---
Author Organization Healthcare Address [address] [place] [address] Care Team Providers Care Front End Technician Name Role Phone Ronald Gr MD Primary Care Provider [phone] Allergies Active Allergy Reactions Criticality Noted Date Comments Acetaminophen Unknown - Patient st ates they do not know rxn details Low 05/30/2022 [place] Cough Low 06/29/2023 Codeine Itching Medium 08/27/2016 Propoxyphene Unknown - Patient st ates they do not know rxn details Low 05/30/2022 Tomato Unknown - Patient st ates they do not know rxn details Low 05/30/2022 Medications clonazePAM (KlonoPIN) 0.5 MG tablet Take 1 tablet (0.5 mg) by mouth 2 (two) times a day. 2 Active gabapentin (Neurontin) 800 MG tablet Take 1 tablet (800 mg) by mouth 3 (three) times a day. 2 Active albuterol 108 (90 Base) MCG/ACT inhaler Inhale 2 puffs every 6 (six) hours if needed for wheezing or shortness of breath. 2 Active loperamide (Imodium) 2 MG capsule Take 1 capsule (2 mg) by mouth every 6 (six) hours if needed for diarrhea. 2 Active atorvastatin (Lipitor) 40 MG tablet Take 1 tablet (40 mg total) by mouth every night. 30 tablet 11 2 Active Calcium Carbonate-Vitam in D (calcium-vitami n D) 500-200 MG-UNIT tablet Take 1 tablet by mouth 2 (two) times a day. 60 tablet 2 2 Active magnesium oxide (Mag-Ox) 400 (240 Mg) MG tablet Take 1 tablet (400 mg total) by mouth every night. 30 tablet 1 2 Active metoprolol succinate XL (Toprol-XL) 25 MG 24 hr tablet Take 1 tablet (25 mg total) by mouth 1 (one) time each day. Do not crush or chew. 30 tablet 11 2 Active oxyCODONE (Roxicodone) 10 MG immediate release tablet Take 1 tablet (10 mg) by mouth 4 (four) times a day. Active apixaban (Eliquis) 5 MG tablet Take 1 tablet (5 mg total) by mouth 2 (two) times a day. 180 tablet 1 2 Active loratadine (Claritin) 10 MG tablet Take 1 tablet (10 mg) by mouth 1 (one) time each day. 2 Active oxybutynin XL (Ditropan-XL) 10 MG 24 hr tablet 3 Active escitalopram (Lexapro) 20 MG tablet 3 Active Vraylar 1.5 MG capsule 4 Active estradiol (Estrace) 0.1 MG/GM vaginal cream 4 Active furosemide (Lasix) 40 MG tablet 4 Active Myrbetriq 50 MG tablet 4 Active Entresto 24-26 MG tablet 4 Active spironolactone (Aldactone) 100 MG tablet 4 Active Active Problems Problem Noted Date Diagnosed Date Stress incontinence 01/26/2024 Urinary urgency 01/26/2024 Urge incontinence 01/26/2024 Postmenopausal atrophic vaginitis 01/26/2024 Mild protein-calorie malnutrition 07/05/2022 Ischemic colitis 07/05/2022 Atherosclerotic heart diseas e of [place] coronary artery without angina pectoris 06/03/2022 Chronic kidney disease, stage 3 unspecified 05/19 Chronic obstructive pulmonary disease, unspecifi ed 06/03/2022 Essential (primary) hypertension 06/03/2022 Hypocalcemia 06/03/2022 Hypokalemia 06/03/2022 Hypomagnesemia 06/03/2022 Unspecified abdominal pain 06/03/2022 Portal hypertension 12/16/2021 Emphysema (subcutaneous) (lin rgical) resulting from a procedure 12/16/2021 Upper GI bleed 12/16/2021 COVID-19 07/15/2021 Takotsubo cardiomyopathy Chronic prescription opiate use Paroxysmal atrial fibrillation Chronic anticoagulation Resolved Problems Problem Noted Date Diagnosed Date Resolved Date Shock 05/29/2022 06/09/2022 NSTEMI (non-ST elevated myoc ardial infarction) 05/29/2022 06/09/2022 Overview (05/30/2022): Added automatically from request for surgery [id number] Immunizations Immunization Administration Dates Next Due Hep A / Hep B 11/03/2018 Hep B, adult 02/14/2019 Influenza, injectable, quadr ivalent, preservative free 07/28/2023,10/07/2022,10/05/2018,07/13,07/22/2017 Influenza, seasonal, injectable 07/22/2017 Influenza, seasonal, injecta ble, preservative free 07/13/2018 Pneumococcal 20-shayla Conj Vaccine 02/09/2024 Pneumococcal Conjugate PCV 13 01/27/2017 Pneumococcal Polysaccharide PPV23 10/05/2018 Family History Medical History Relation Name Comments Cardiac disorder Father Diabetes Father Heart attack Father Hypertension Father Cardiac disorder Mother Hepatitis Mother Liver disease Mother Stroke Mother Coronary artery disease Other 1 Diabetes Other 2 Hypertension Other 3 Other cancer Other 4 Relation Name Status Comments Father Mother Other 1 Other 2 Other 3 Other 4 Social History Tobacco Use Types Packs/Day Years Used Date Smoking Tobacco: Every Day Cigarettes Last attempted to quit: 11/2021 Passive Smoke Exposure: Past Smokeless Tobacco: Never Tobacco Cessation:Ready to Q uit: Not Asked; Counseling Given: Not Answered Alcohol Use Standard Drinks/Week Comments No 0 (1 standard drink = 0.6 oz pur e alcohol) PHQ-2 Answer Date Recorded Patient Health Questionnaire-2 Score 0 01/19/2024 Comments Unknown Sex and Gender Information Value Date Recorded Sex Assigned at Not on file Legal Sex Female 6:00 PM EDT Gender Identity Not on file Sexual Orientation Not on file Last Filed Vital Signs Vital Sign Reading Time Taken Comments Blood Pressure 100/59 01/19/2024 12:19 PM EDT Pulse 66 01/19/2024 12:19 PM EDT Temperature 36.8 C (98.3 F) 07/01/2022 2:58 PM EDT Respiratory Rate 18 06/29/2023 11:30 AM EDT Oxygen Saturation 97% 06/29/2023 11:30 AM EDT Inhaled Oxygen Concentration - - Weight 53.7 kg (118 lb 6.2 oz) 01/19/2024 12:19 PM EDT Height 157.5 cm (5' 2 ) 07/01/2022 2:58 PM EDT Body Mass Index 21.65 07/01/2022 2:58 PM EDT Plan of Treatment Health Maintenance Due Date Last Done Comments [facility]-Bone Density Scan 1954 [facility]-Medicare Annual Wellness (AWV) 1954 [facility]-/Child/Adol SDOH Screenings 1954 [facility]- SDOH Screenings 1972 [facility]-Adult SDOH Screenings 1972 [facility]-DTaP,Tdap,and Td Vaccines (1 - Tdap) 1973 CT Colonography 1999 FIT-DNA 1999 FIT 1999 FOBT 1999 Sigmoidoscopy 1999 [facility]-Breast Cancer Screening 2004 [facility]-Zoster Vaccines (1 of 2) 2004 [id number] Vaccine ( season) 2024 10/07/2022, 10/24/2021, 01/30/2021, Additional history exists [facility]-Depression Screening 01/18/2025 01/19/2024, 06/19 [facility]-Influenza Vaccine (Season Ended) 2025 07/28/2023, 10/07/2022, 10/05/2018, Additional history exists [facility]-RSV Vaccine: 60+ Years or (1 - 1-dose 75+ series) 2029 Colonoscopy 06/04/2032 06/04/2022 [facility]-Colorectal Cancer Screening 06/04/2032 [facility]-Hepatitis A Vaccines Aged Out 11/03/2018 No longer eligible based on patient's age to complete this topic [facility]-Hepatitis C Screening Completed 2021, 05/30/2022, 07/17/2021, Additional history exists [facility]-Pneumococcal Vaccine: 50+ Years Completed 02/09/2024, 10/05/2018, 01/27/2017 HPV Vaccines Aged Out No longer eligi ble based on patient's age to complete this topic [facility]-HIB Vaccines Aged Out No longer e ligible based on patient's age to complete this topic [facility]-IPV Vaccines Aged Out No longer e ligible based on patient's age to complete this topic [facility]-Rotavirus Vaccines Aged Out No lo nger eligible based on patient's age to complete this topic Procedures Procedure Name Priority Date/Time Associated Diagnosis Comments COLONOSCOPY Routine 06/04/2022 2:47 PM EDT Hematochezia ACUTE HEPATITIS PANEL Routine 05/30/2022 6:32 AM EDT from Last 3 Months or Most Recently Relevant to Health Maintenance Results * Colonoscopy (06/04/2022 2:47 PM EDT) Anatomical Region Laterality Modality Endoscopy Narrative 06/04/2022 2:49 PM EDT Table formatting from the original result was not included. Impression Ulcer. Severe confluent ulceration noted from the rectum into the sigmoid up to about 30 cm, with areas of adherent clot and vesicles vs regenerating mucosa. Biopsied with cold biopsy forceps. No visible vessels seen, but all of the adherent clot was unable to be washed off. Ulcer. Patchy areas of linear ulceration noted at the splenic flexure, descending and ascending colon suspicious for ischemic colitis. Polyp. Numerous polyps were seen throughout the colon , mostly < 1cm. These were not removed at this time in the setting of recent hematochezia. Lipoma measuring 2 cm in the ascending colon No large masses were appreciated, within the limitations of the bowel prep Recommendation Await pathology results Okay to resume anticoagulation at this point Patient will need a full colonoscopy outpatient once her health status has improved for further evaluation / removal of polyps (noted FH of early onset colon cancer in her mother at age 40) Indication Hematochezia Medications See anesthesia record for anesthesia administered medications. Staff Jennifer Rodriguez MD attending Neville Odom MD fellow Liz Fitch RN nurse [place], audiovisual lead technician Preprocedure A history and physical has been performed, and patient medication allergies have been reviewed. The patient's tolerance of previous anesthesia has been reviewed. The risks and benefits of the procedure and the sedation options and risks were discussed with the patient. All questions were answered and informed consent obtained. Details of the Procedure The patient underwent moderate sedation, which was administered by a sedation nurse and an anesthesia professional. The patient's blood pressure, heart rate, level of consciousness, respirations and oxygen were monitored throughout the procedure. A digital rectal exam was performed. A perianal exam was performed. The scope was introduced through the anus and advanced to the cecum. The quality of bowel preparation was evaluated using the Pioneer Bowel Preparation Scale with scores of: right colon = 2, transverse colon = 2, left colon = 2. The total BBPS score was 6. Bowel prep was adequate. The patient experienced no blood loss. The procedure was not difficult. The patient tolerated the procedure well. There were no apparent complications. Attestation I was present for the entire procedure Events Procedure Events Event Event Time Specimens No specimens were documented in this log. Findings Ulcer. Severe confluent ulceration noted from the rectum into the sigmoid up to about 30 cm, with areas of adherent clot and vesicles vs regenerating mucosa. Biopsied with cold biopsy forceps. No visible vessels seen, but all of the adherent clot was unable to be washed off. Ulcer. Patchy areas of linear ulceration noted at the splenic flexure, descending and ascending colon suspicious for ischemic colitis. Polyp. Numerous polyps were seen throughout the colon , mostly < 1cm. These were not removed at this time in the setting of recent hematochezia. Lipoma measuring 2 cm in the ascending colon No large masses were appreciated, within the limitations of the bowel prep Akhil Shultz MD GI PROCEDURE ORDERABLES Final R esult * (ABNORMAL) Acute Hepatitis Panel (05/30/2022 6:32 AM EDT) Hepatitis B Surf Antigen Negative Negative 05/30/2022 10:59 AM EDT [facility] Hepatitis C Antibody Positive(A) Negative 05/30/2022 10:59 AM EDT [facility] Comment: This specimen is being sent for confirmation by RT-PCR. This specimen is being sent for confirmation by RT-PCR. Hepatitis A Antibody IgM Negative Negative 05/30/2022 10:59 AM EDT [facility] Hepatitis B Core Antibody IgM Negative Negative 05/30/2022 10:59 AM EDT [facility] Blood Arterial blood specimen / Unknown Venipuncture / Unknown 05/30/2022 6:32 AM EDT 05/30/2022 6:42 AM EDT us Gomez Louis MD LAB BLOOD ORDERABLES Final Resul t [facility] [address] [place] [address] from Last 3 Months or Most Recently Relevant to Health Maintenance Insurance [facility] MEDIC[facility] Advance Directives * Full Code (Latest Code Status on File) Date Activated Date Inactivated Comments 05/29/2022 10:24 PM 06/09/2022 7:33 PM Question Answer Comments Patient has decision-making capacity? Yes Care Teams Front End Technician Relationship Specialty Start Date End Date Ronald Gr MD [address] [place] [address] PCP - General 03/01/21
--- OUTSIDE RECORDS SUMMARY | 2025-04-01 18:53 | XMS_ITS | Encounter Summary ---
Author Organization Healthcare Address [address] [place] [address] Care Team Providers Care Safety Teacher Name Role Phone Ronald Gr MD Primary Care Provider [phone] Aniyah Duke LPN Unavailable Unavailab le Encounter Details Date Type Department Care Team ([facility] st Contact Info) Description 05/29/2022 Orders Only External Location [address] [place] [address] Neto Woodson, AIRPORT REPRESENTATIVE [address] [place] [address] Social History Tobacco Use Types Packs/Day Years [...] Month) No 022 8:00 AM EDT Alise Gonzalez 2. Non-Specific Active Suici josé miguel Thoughts (Past 1 Month) No 05/30/2022 8:00 AM EDT Alise Gonzalez 6. Suicidal Behavior (Lifetime) No 8:00 AM EDT Alise Gonzalez documented as of this encounter Plan of Treatment Not on file documented as of this encounter Procedures Procedure Name Priority Date/Time Associated Diagnosis Comments CT ABDOMEN OUTSIDE IMAGES 05/29/2022 9:22 AM EDT documented in this encounter Results * CT ABDOMEN OUTSIDE IMAGES (05/29/2022 9:22 AM EDT) Anatomical Region Laterality Modality Computed Tomogra phy 05/29/2022 9:22 AM EDT Neto Woodson APRN IMG CT PROCEDURES Final Res ult documented in this encounter Visit Diagnoses Not on filedocumented in this encounter Additional Health Concerns Infection Onset Date Last Indicated Resolved Time C. difficile Rule-Out 06/06/2022 06/06/20222021 7:20 PM EDT Assessment Noted Time A fall risk assessment has been complete d for the patient 12/16/2021 3:35 PM EST documented as of this encounter Care Teams Safety Teacher Relationship Specialty Start Date End Date Ronald Gr MD [address] [place] [address] PCP - General 03/01/21 Aniyah Duke LPN [employer] [place] [address] TCM Nurse 06/10/22 07/10/22 documented as of this encounter
--- OUTSIDE RECORDS SUMMARY | 2025-04-01 18:53 | XMS_ITS | Encounter Summary ---
Author Organization Healthcare Address [address] [place] [address] Care Team Providers Care Parts Casting Machine Operator Name Role Phone Ronald Gr MD Primary Care Provider [phone] Aniyah Duke LPN Unavailable Unavailab le Encounter Details Date Type Department Care Team (Late st Contact Info) Description 05/29/2022 Orders Only External Location [address] [place] [address] Cayla Faye, WEATHER STRIPPER [address] [facility] [address] [facility] [address] [place] [address] Social History Tobacco Use Types Packs/Day Years [...] Procedure Name Priority Date/Time Associated Diagnosis Comments US ABDOMEN OUTSIDE IMAGES 05/29/2022 12:53 PM EDT documented in this encounter Results * US ABDOMEN OUTSIDE IMAGES (05/29/2022 12:53 PM EDT) Anatomical Region Laterality Modality Ultrasound 05/29/2022 12:5 3 PM EDT us Cayla Faye WEATHER STRIPPER IMG US PROCEDURES Luanne l Result documented in this encounter Visit Diagnoses Not on filedocumented in this encounter Additional Health Concerns Infection Onset Date Last Indicated Resolved Time C. difficile Rule-Out 06/06/2022 06/06/20222021 7:20 PM EDT Assessment Noted Time A fall risk assessment has been complete d for the patient 12/16/2021 3:35 PM EST documented as of this encounter Care Teams Parts Casting Machine Operator Relationship Specialty Start Date End Date Ronald Gr MD [address] [place] [address] PCP - General 03/01/21 Aniyah Duke LPN [employer] [place] [address] TCM Nurse 06/10/22 07/10/22 documented as of this encounter
--- OUTSIDE RECORDS SUMMARY | 2025-04-01 18:53 | XMS_ITS | Encounter Summary ---
Author Organization Healthcare Address [address] [place] [address] Care Team Providers Care Spray Machine Loader Name Role Phone Ronald Gr MD Primary Care Provider [phone] Aniyah Duke LPN Unavailable Unavailab le Encounter Details Date Type Department Care Team ([facility] st Contact Info) Description 05/29/2022 Orders Only External Location [address] [place] [address] Ronald Gr MD [address] [phone] Social History Tobacco Use Types Packs/Day Years [...] Associated Diagnosis Comments XR THORACIC OUTSIDE IMAGES 05/29/2022 1:04 AM EDT documented in this encounter Results * XR THORACIC OUTSIDE IMAGES (05/29/2022 1:04 AM EDT) Anatomical Region Laterality Modality Radiographic Anne Marie ging 05/29/2022 1:04 AM EDT Ronald Gr MD IMG XR [...] documented as of this encounter Care Teams Spray Machine Loader Relationship Specialty Start Date End Date Ronald Gr MD [address] [place] [address] PCP - General 03/01/21 Aniyah Duke LPN VALUE-BASED [place] [address] TCM Nurse 06/10/22 07/10/22 documented as of this encounter
--- OUTSIDE RECORDS SUMMARY | 2025-04-01 18:53 | XMS_ITS | Encounter Summary ---
Author Organization Healthcare Address [address] [place] [address] Care Team Providers Care Net Finisher Name Role Phone Ronald Gr MD Primary Care Provider [phone] Aniyah Duke LPN Unavailable Unavailab le Encounter Details Date Type Department Care Team (Late st Contact Info) Description 06/02/2022 Lab Requisition [facility] [address] [place] [address] Ruth Ann Girard MD [address] [place], [place] [id number] Encounter for general adult medical examination without abnormal findings Social History Tobacco Use Types Packs/Day Years [...] AM EDT documented as of this encounter Plan of Treatment Not on file documented as of this encounter Procedures Procedure Name Priority Date/Time Associated Diagnosis Comments MULTI DRUG RESISTANCE TEST Routine 06/02/2022 12:00 PM EDT Encounter for general adult medical examination without abnormal findings documented in this encounter Results * Multi Drug Resistance Test (06/02/2022 12:00 PM EDT) Culture No growth at day 1 06/03/2022 8:17 PM EDT [facility] Swab (Nares and Casie Rectal) 06/02/2022 12:00 PM EDT 06/02/2022 2:06 PM EDT us Ruth Ann Lozano MD LAB MICROBIOLOGY - GENERAL ORDERABLES Final Result [facility] [address] [place] [address] documented in this encounter Visit Diagnoses Diagnosis Encounter for general adult medical examination without abnormal findings documented in this encounter Additional Health Concerns Infection Onset Date Last Indicated Resolved Time C. difficile Rule-Out 06/06/2022 06/06/20222021 7:20 PM EDT Assessment Noted Time A fall risk assessment has been complete d for the patient 12/16/2021 3:35 PM EST documented as of this encounter Care Teams Net Finisher Relationship Specialty Start Date End Date Ronald Gr MD [address] [place] [address] PCP - General 03/01/21 Aniyah Duke LPN VAL[employer] [place] [address] TCM Nurse 06/10/22 07/10/22 documented as of this encounter
--- OUTSIDE RECORDS SUMMARY | 2025-04-01 18:53 | XMS_ITS ---
Author Organization Unknown Patient Care team information Name Category Status Period Participants - - Proposed period not known -
--- NOTE | 2025-04-01 18:58 | HMH.EDGENADL ---
Discharge Plan Disposition Patient Disposition: Admitted Condition: Serious Clinical Impressions Clinical Impression: Sepsis without septic shock, Hypomagnesemia, Enteritis Discharge ED Provider: Mingo Timmons General Adult HPI <MAXX Rockwell - Last Filed: 04/01/25 21:48> General Chief complaint: Nausea/Vomiting/Diarrhea Stated complaint: syncope? Time Seen by Provider: 04/01/25 18:50 History of Present Illness HPI narrative: Patient presents for evaluation of nausea vomiting diarrhea and abdominal pain. Patient states that she woke up this morning and started having nausea and vomiting that is ultimately been intractable. She has also had numerous episodes of diarrhea. She denies any fever chills hemoptysis hematochezia melena hematemesis hematuria. She is reporting diffuse abdominal pain primarily with vomiting. Patient states that she has never had any abdominal surgeries. Related Data Home Medications ?Medication ?Instructions ?Recorded ?Confirmed albuterol sulfate 90 mcg/actuation 2 puff inhalation Q6HP PRN 11/04/24 02/14/25 aerosol inhaler Shortness Of Breath escitalopram oxalate 20 mg tablet 20 mg PO DAILY 11/04/24 02/14/25 omeprazole 20 mg capsule,delayed 20 mg PO DAILY 11/04/24 02/14/25 release zolpidem 5 mg tablet 5 mg PO HS 11/05/24 02/14/25 Previous Rx's ?Medication ?Instructions ?Recorded apixaban 5 mg tablet (Eliquis) 5 mg PO BID 90 days #180 tabs 06/13/24 atorvastatin 20 mg tablet 20 mg PO DAILY 90 days #90 tabs 06/13/24 cariprazine 1.5 mg capsule 3 mg (2 x 1.5 mg) PO DAILY 90 days 11/03/24 (Vraylar) #180 caps sodium bicarbonate 650 mg tablet 650 mg PO BID 30 days #60 tabs 11/06/24 estradiol 0.01% (0.1 mg/gram) 1 appful vaginal DAILY #42.5 grams 11/21/24 vaginal cream (Estrace) mirabegron 50 mg tablet,extended 50 mg PO DAILY #90 tabs 11/21/24 release 24 hr (Myrbetriq) oxybutynin chloride 10 mg 10 mg PO DAILY #30 tabs 11/21/24 tablet,extended release 24 hr lorazepam 0.5 mg tablet 0.5 mg PO DAILYP PRN Anxiety #12 12/22/24 tabs alendronate 10 mg tablet 10 mg PO DAILY #30 tabs 12/28/24 gabapentin 400 mg capsule 400 mg PO TID 30 days #90 caps 02/09/25 furosemide 40 mg tablet 40 mg PO DAILY 90 days #90 tabs 02/20/25 loratadine 10 mg tablet See Rx Instructions .Route 02/20/25 .COMPLEX #90 tabs oxycodone 10 mg tablet 10 mg PO TID PRN pain #90 tabs 03/09/25 Allergies Allergy/AdvReac Type Severity Reaction Status Date / Time acetaminophen (From Allergy Unknown Unknown Verified 02/14/25 13:13 DARVOCET-N) allergy reaction codeine (CODEINE) Allergy Unknown Unknown Verified 02/14/25 13:13 allergy reaction propoxyphene (From Allergy Unknown Unknown Verified 02/14/25 13:13 DARVOCET-N) allergy reaction tomato AdvReac Mild Gastrointestinal Verified 02/14/25 13:13 Upset [facility] <MAXX Rockwell - Last Filed: 04/01/25 21:48> [facility] Disclaimer: The information contained in this section may have been updated after the patient was seen, as this information can be updated by other users. Medical History Urinary tract infection Ground glass opacity present on imaging of lung Hyperkalemia Hyperkalemia Hypomagnesemia Acute kidney injury (nontraumatic) At risk for osteoporosis Anemia Healthcare maintenance Tobacco abuse counseling Left knee pain Neck pain Tremor Memory changes Trouble swallowing Abnormal thyroid ultrasound Abnormal thyroid blood test Rash Abnormal hemoglobin Hypotension Abnormal CT of the abdomen Acute hemorrhoid Anxiety Pacemaker Black stools Sepsis Left foot pain Acquired hammer toes of both feet Acquired hallux valgus of left foot Incurved toenail Neuropathy Callus of foot Primary osteoarthritis of both feet Fatigue Dizziness Near syncope Symptomatic bradycardia Bradycardia Abdominal pain Ischemic colitis CHF (congestive heart failure) Non-STEMI (non-ST elevated myocardial infarction) Atrial fibrillation with rapid ventricular response Acute renal failure Dehydration Sepsis CKD (chronic kidney disease) Diarrhea Dehydration DONNIE (acute kidney injury) COVID-19 Sinus bradycardia Viral cardiomyopathy Elevated white blood cell count, unspecified Renal insufficiency Takotsubo cardiomyopathy Elevated left ventricular end-diastolic pressure (LVEDP) Gastroenteritis ST elevation TN (STEMI) ADIEL (obstructive sleep apnea) TIA (transient ischemic attack) Facial droop Atypical angina HTN (hypertension) Edema Tobacco dependence syndrome Abnormal EKG COPD (chronic obstructive pulmonary disease) Chest pain Overweight (BMI 25.0-29.9) Trapezius muscle strain Pre-ulcerative calluses Lumbar disc disease with radiculopathy Lumbar foraminal stenosis Lumbar spondylosis Back Pain Dizziness Angina pectoris History of CVA (cerebrovascular accident) Solitary lung nodule Palpitations Dyspnea Tobacco user HLD (hyperlipidemia) HHD (hypertensive heart disease) Mitral valve regurgitation CAD (coronary artery disease) Surgical History Presence of cardiac pacemaker Family History Other No significant family history Social History Smoking Status: Never smoker second hand exposure: Yes alcohol intake: never substance use type: denies use current occupational status: unemployed Travel in the last 8 weeks?: None household members: family housing: house current occupational exposures/hazards: No caffeine: Yes Have you lived/traveled outside [place] in past 30 days?: No Contact w/someone who lives/traveled outside US past 30 days?: No Exposure to someone with infectious disease in past 14 days?: No Do you have a fever (greater than 100.4 F or 38 C)?: No Have you tested positive for COVID-19?: No Exposed to someone with COVID-19 in past 14 days?: No Do you have a sore throat?: No Do you have a cough?: No Do you have any weakness?: No Do you have any diarrhea?: No Are you experiencing any unusual bleeding?: No Do you have any muscle aches/pain?: No Do you have any abdominal pain?: No Are you experiencing loss of taste or smell?: No Other Medical History Have you received the Flu Vaccine for this season: No Have you received the Pneumonia Vaccine: Yes <MAXX Rockwell - Last Filed: 04/01/25 21:48> ROS Obtained: Yes Systems reviewed as appropriate & no additional complaints except as documented Physical Exam <AMXX Rockwell - Last Filed: 04/01/25 21:48> General General appearance: alert and in no apparent distress Respiratory Respiratory exam: Present normal lung sounds bilaterally Cardiovascular Cardiovascular exam: Present tachycardia Neurological Exam Neurological exam: Present alert, oriented X3 and CN II-XII intact Medical Decision Making <MAXX Rockwell - Last Filed: 04/01/25 21:48> Medical Records Medical records reviewed: Yes I reviewed the patient's medical records. Screening: Per USPSTF and CDC recommendations, given the prevalence of disease in our region, it is our hospital?s policy to screen for HIV and viral Hepatitis for all patients aged 18 and over and those with ongoing risk factors. Honorio Inquiry Pt receiving controlled substance: No Vital Signs: 04/01/25 18:59 04/01/25 19:00 04/01/25 19:00 Temperature 97.6 F Temperature Source Rectal Pulse Rate 101 H 90 Pulse Rate [Left Radial] 105 H Respiratory Rate 32 H 20 30 H Blood Pressure 184/84 H 151/74 H Blood Pressure [Right Arm] 151/74 H Blood Pressure Mean [Right Arm] 99 02 Sat by Pulse Oximetry 97 98 97 Oxygen Delivery Method Room Air 04/01/25 19:30 04/01/25 19:52 04/01/25 20:00 Temperature Temperature Source Pulse Rate 97 H 87 105 H Pulse Rate [Left Radial] Respiratory Rate 28 H 19 26 H Blood Pressure 153/82 H 202/95 H 186/98 H Blood Pressure [Right Arm] Blood Pressure Mean [Right Arm] 02 Sat by Pulse Oximetry 94 L 95 92 L Oxygen Delivery Method 04/01/25 20:30 04/01/25 20:57 04/01/25 21:00 Temperature Temperature Source Pulse Rate 106 H Pulse Rate [Left Radial] Respiratory Rate 28 H 20 24 Blood Pressure 194/100 H 128/64 135/70 Blood Pressure [Right Arm] Blood Pressure Mean [Right Arm] 02 Sat by Pulse Oximetry 95 Oxygen Delivery Method 04/01/25 21:10 04/01/25 21:22 Temperature 97.7 F Temperature Source Oral Pulse Rate 73 Pulse Rate [Left Radial] Respiratory Rate 20 Blood Pressure Blood Pressure [Right Arm] Blood Pressure Mean [Right Arm] 02 Sat by Pulse Oximetry 92 L Oxygen Delivery Method Room Air Lab Data Lab results reviewed: Yes I reviewed the patient's lab results. Lab Results 04/01/25 18:45: WBC 20.3 H*, RBC 5.90 H, Hgb 16.1, Hct 49.8 H, MCV 84.4, MCH 27.3, MCHC 32.3, RDW 15.2, Plt Count 316, MPV 12.9 H, Neut % (Auto) 86.5 H, Lymph % (Auto) 9.8 L, Barton % (Auto) 2.6, Eos % (Auto) 0.1, Baso % (Auto) 0.3, Neut # (Auto) 17.5 H, Lymph # (Auto) 2.0, Barton # (Auto) 0.5, Eos # (Auto) 0.0, Baso # (Auto) 0.1, Sodium 148 H, Potassium 4.0, Chloride 105, Carbon Dioxide 23, Anion Gap 24.0 H, BUN 20 H, Creatinine 1.20 H, Estimated Creat Clear 37, Estimated GFR 44 L, Est GFR ( Amer) 54 L, Glucose 193 H, Calcium 10.0, Magnesium 0.2 L, Total Bilirubin 1.2, AST 41 H, ALT 19, Alkaline Phosphatase 62, Total Protein 10.2 H D, Albumin 5.5 H, Globulin 4.7 H, Albumin/Globulin Ratio 1.2, Lipase 99, Procalcitonin 0.048 04/01/25 21:07: Lactate 1.5 04/01/25 18:45 04/01/25 18:45 Orders (Tests/Meds): ED MEDICATIONS Generic Name Dose Route Start Last Admin Trade Name Freq PRN Reason Stop Dose Admin Sodium Chloride 1,500 mls @ 750 mls/hr 04/01/25 21:22 04/01/25 22:05 Sod Chlor 0.9% 1000ml Bag 30 ml/kg infuse over 2 hr (1500 ml) 04/01/25 23:21 750 mls/hr IV Administration .Q2H ONE Sodium Chloride 10 ml 04/01/25 20:09 04/01/25 20:10 Sodium Chloride 0.9% 10ml Syr (Rad Only) IV 05/01/25 20:08 10 ml NEEDED PRN Administration Maintain IV Site Discontinued Medications Generic Name Dose Route Start Last Admin Trade Name Freq PRN Reason Stop Dose Admin Sodium Chloride 1,000 mls @ 999 mls/hr 04/01/25 18:59 04/01/25 19:14 Sod Chlor 0.9% 1000ml Bag IV 04/01/25 19:59 999 mls/hr .Q1H1M ONE Administration Magnesium Sulfate 2 gm in 50 mls @ 50 mls/hr 04/01/25 19:23 04/01/25 19:54 Magnesium Sulfate 2gm/50ml Premix IV 04/01/25 20:22 50 mls/hr ONCE ONE Administration Magnesium Sulfate 2 gm in 50 mls @ 50 mls/hr 04/01/25 19:24 04/01/25 19:54 Magnesium Sulfate 2gm/50ml Premix IV 04/01/25 20:23 50 mls/hr ONCE ONE Administration Ceftriaxone Sodium 2 gm/ 100 mls @ 200 mls/hr 04/01/25 19:32 04/01/25 19:53 Sodium Chloride IV 04/01/25 20:01 200 mls/hr ONCE ONE Administration Iopamidol 75 ml 04/01/25 20:09 04/01/25 20:10 Iopamidol-370 (76%);100ml Bottle IV 04/01/25 20:10 75 ml ONCE ONE Administration ORDERS Category Date Time Status CT abdomen pelvis w con Stat Cat Scan 04/01/25 18:59 Completed CBC w/Auto Diff [Complete Blood Count Auto Diff] Stat Lab 04/01/25 18:45 Completed CMP [Comprehensive Metabolic Panel] Stat Lab 04/01/25 18:45 Completed Diarrhea 23 Panel, PCR Stat Lab 04/01/25 19:00 Ordered Lactic Acid Stat Lab 04/01/25 21:07 Completed Lipase Stat Lab 04/01/25 18:45 Completed Magnesium Stat Lab 04/01/25 18:45 Completed Procalcitonin Stat Lab 04/01/25 18:45 Completed UA [Urinalysis and Microscopic] Stat Lab 04/01/25 18:59 Ordered Blood Culture Stat Micro 04/01/25 19:42 Received Tissue Perfus/Sepsis Re-Eval Sepsis Re-Evaluation Performed: Yes Date Performed: 04/01/25 Time Performed: 21:18 Medical Decision Narrative: In summary patient is a 69-year-old female who presents to the emergency department for evaluation of intractable nausea vomiting diarrhea and abdominal pain. Patient is initially hypertensive on arrival with blood pressure 184/84 heart rate is 101 sinus tachycardia bedside monitor breathing 32 times a minute satting at 97% on room air upon arrival, afebrile at 97.6. Physical exam reveals an unwell appearing 69-year-old female who otherwise no acute distress. Breath sounds clear and equal bilaterally to the bases without adventitious sounds, abdomen is soft but diffusely mildly tender to palpation with no rebound or guarding or rigidity. Bowel sounds hyperactive.. Differential diagnosis includes gastroenteritis versus diverticulitis versus ulcer versus pancreatitis versus cholecystitis etc. Initial workup will be conducted with hematologic labs urinalysis CT scan abdomen pelvis. Initial interventions include crystalloid bolus Tylenol and patient received 4 mg of Zofran via EMS prior to arrival. Initial workup reviewed by me and her hematologic labs are significant for white count of 20.3 hemoglobin hematocrit of 16.1 and 49.8 respectively with an absolute neutrophil count of 17.5, sodium 148 anion gap is 24 BUN is 20 creatinine is 1.2 GFR is 44 magnesium is critically low at 0.2 AST is 41 procalcitonin is 0.048 lipase is 99 and my informal interpretation of her CT scan abdomen pelvis shows fluid filled loops of small bowel but no other acute processes noted prior to radiology read. Please see final read for formal interpretation. Given this patient was given a sepsis bolus, magnesium repletion was ordered, blood cultures were obtained and gram of Rocephin was given. Given this I had interactive discussion with hospital medicine regarding patient presentation RAE and management and she will be admitted for further evaluation and care. <Mingo Timmons MD - Last Filed: 04/01/25 22:10> Vital Signs: 04/01/25 18:59 04/01/25 19:00 04/01/25 19:00 Temperature 97.6 F Temperature Source Rectal Pulse Rate 101 H 90 Pulse Rate [Left Radial] 105 H Respiratory Rate 32 H 20 30 H Blood Pressure 184/84 H 151/74 H Blood Pressure [Right Arm] 151/74 H Blood Pressure Mean [Right Arm] 99 02 Sat by Pulse Oximetry 97 98 97 Oxygen Delivery Method Room Air 04/01/25 19:30 04/01/25 19:52 04/01/25 20:00 Temperature Temperature Source Pulse Rate 97 H 87 105 H Pulse Rate [Left Radial] Respiratory Rate 28 H 19 26 H Blood Pressure 153/82 H 202/95 H 186/98 H Blood Pressure [Right Arm] Blood Pressure Mean [Right Arm] 02 Sat by Pulse Oximetry 94 L 95 92 L Oxygen Delivery Method 04/01/25 20:30 04/01/25 20:57 04/01/25 21:00 Temperature Temperature Source Pulse Rate 106 H Pulse Rate [Left Radial] Respiratory Rate 28 H 20 24 Blood Pressure 194/100 H 128/64 135/70 Blood Pressure [Right Arm] Blood Pressure Mean [Right Arm] 02 Sat by Pulse Oximetry 95 Oxygen Delivery Method 04/01/25 21:10 04/01/25 21:22 Temperature 97.7 F Temperature Source Oral Pulse Rate 73 Pulse Rate [Left Radial] Respiratory Rate 20 Blood Pressure Blood Pressure [Right Arm] Blood Pressure Mean [Right Arm] 02 Sat by Pulse Oximetry 92 L Oxygen Delivery Method Room Air Lab Data Lab Results 04/01/25 18:45: WBC 20.3 H*, RBC 5.90 H, Hgb 16.1, Hct 49.8 H, MCV 84.4, MCH 27.3, MCHC 32.3, RDW 15.2, Plt Count 316, MPV 12.9 H, Neut % (Auto) 86.5 H, Lymph % (Auto) 9.8 L, Barton % (Auto) 2.6, Eos % (Auto) 0.1, Baso % (Auto) 0.3, Neut # (Auto) 17.5 H, Lymph # (Auto) 2.0, Barton # (Auto) 0.5, Eos # (Auto) 0.0, Baso # (Auto) 0.1, Sodium 148 H, Potassium 4.0, Chloride 105, Carbon Dioxide 23, Anion Gap 24.0 H, BUN 20 H, Creatinine 1.20 H, Estimated Creat Clear 37, Estimated GFR 44 L, Est GFR ( Amer) 54 L, Glucose 193 H, Calcium 10.0, Magnesium 0.2 L, Total Bilirubin 1.2, AST 41 H, ALT 19, Alkaline Phosphatase 62, Total Protein 10.2 H D, Albumin 5.5 H, Globulin 4.7 H, Albumin/Globulin Ratio 1.2, Lipase 99, Procalcitonin 0.048 04/01/25 21:07: Lactate 1.5 Orders (Tests/Meds): ED MEDICATIONS Generic Name Dose Route Start Last Admin Trade Name Freq PRN Reason Stop Dose Admin Sodium Chloride 1,500 mls @ 750 mls/hr 04/01/25 21:22 04/01/25 22:05 Sod Chlor 0.9% 1000ml Bag 30 ml/kg infuse over 2 hr (1500 ml) 04/01/25 23:21 750 mls/hr IV Administration .Q2H ONE Sodium Chloride 10 ml 04/01/25 20:09 04/01/25 20:10 Sodium Chloride 0.9% 10ml Syr (Rad Only) IV 05/01/25 20:08 10 ml NEEDED PRN Administration Maintain IV Site Discontinued Medications Generic Name Dose Route Start Last Admin Trade Name Freq PRN Reason Stop Dose Admin Sodium Chloride 1,000 mls @ 999 mls/hr 04/01/25 18:59 04/01/25 19:14 Sod Chlor 0.9% 1000ml Bag IV 04/01/25 19:59 999 mls/hr .Q1H1M ONE Administration Magnesium Sulfate 2 gm in 50 mls @ 50 mls/hr 04/01/25 19:23 04/01/25 19:54 Magnesium Sulfate 2gm/50ml Premix IV 04/01/25 20:22 50 mls/hr ONCE ONE Administration Magnesium Sulfate 2 gm in 50 mls @ 50 mls/hr 04/01/25 19:24 04/01/25 19:54 Magnesium Sulfate 2gm/50ml Premix IV 04/01/25 20:23 50 mls/hr ONCE ONE Administration Ceftriaxone Sodium 2 gm/ 100 mls @ 200 mls/hr 04/01/25 19:32 04/01/25 19:53 Sodium Chloride IV 04/01/25 20:01 200 mls/hr ONCE ONE Administration Iopamidol 75 ml 04/01/25 20:09 04/01/25 20:10 Iopamidol-370 (76%);100ml Bottle IV 04/01/25 20:10 75 ml ONCE ONE Administration ORDERS Category Date Time Status CT abdomen pelvis w con Stat Cat Scan 04/01/25 18:59 Completed CBC w/Auto Diff [Complete Blood Count Auto Diff] Stat Lab 04/01/25 18:45 Completed CMP [Comprehensive Metabolic Panel] Stat Lab 04/01/25 18:45 Completed Diarrhea 23 Panel, PCR Stat Lab 04/01/25 19:00 Ordered Lactic Acid Stat Lab 04/01/25 21:07 Completed Lipase Stat Lab 04/01/25 18:45 Completed Magnesium Stat Lab 04/01/25 18:45 Completed Procalcitonin Stat Lab 04/01/25 18:45 Completed UA [Urinalysis and Microscopic] Stat Lab 04/01/25 18:59 Ordered Blood Culture Stat Micro 04/01/25 19:42 Received ECG Data Tracing #1: I reviewed this ECG and interpreted as documented below: (1850: Sinus tachycardia 101 bpm with MI 127, QRS 96, QTc 416. Normal axis. Wandering, messy electric baseline, largely nondiagnostic in inferior leads, but no reciprocal elevations or changes) Medical Decision Narrative: In summary patient is a 69-year-old female who presents to the emergency department for evaluation of intractable nausea vomiting diarrhea and abdominal pain. Patient is initially hypertensive on arrival with blood pressure 184/84 heart rate is 101 sinus tachycardia bedside monitor breathing 32 times a minute satting at 97% on room air upon arrival, afebrile at 97.6. Physical exam reveals an unwell appearing 69-year-old female who otherwise no acute distress. Breath sounds clear and equal bilaterally to the bases without adventitious sounds, abdomen is soft but diffusely mildly tender to palpation with no rebound or guarding or rigidity. Bowel sounds hyperactive.. Differential diagnosis includes gastroenteritis versus diverticulitis versus ulcer versus pancreatitis versus cholecystitis etc. Initial workup will be conducted with hematologic labs urinalysis CT scan abdomen pelvis. Initial interventions include crystalloid bolus Tylenol and patient received 4 mg of Zofran via EMS prior to arrival. Initial workup reviewed by me and her hematologic labs are significant for white count of 20.3 hemoglobin hematocrit of 16.1 and 49.8 respectively with an absolute neutrophil count of 17.5, sodium 148 anion gap is 24 BUN is 20 creatinine is 1.2 GFR is 44 magnesium is critically low at 0.2 AST is 41 procalcitonin is 0.048 lipase is 99 and my informal interpretation of her CT scan abdomen pelvis shows fluid filled loops of small bowel but no other acute processes noted prior to radiology read. Please see final read for formal interpretation. Given this patient was given a sepsis bolus, magnesium repletion was ordered, blood cultures were obtained and gram of Rocephin was given. Given this I had interactive discussion with hospital medicine regarding patient presentation RAE and management and she will be admitted for further evaluation and care. I was consulted by the MUL[facility], and we discussed the complexity of the problems being addressed. I approved the treatment and management plan for this patient's care in the Emergency Department, thus performing a substantive portion of the medical decision making. Mingo Timmons MD Critical Care <MAXX Rockwell - Last Filed: 04/01/25 21:48> Critical Care Time Critical Care Time: Yes Attestation: On 04/01/25, the high probability of a clinically significant, sudden or life threatening deterioration of the following system(s) required my full and direct attention, intervention and personal management. The time I documented below is in addition to time spent performing reported procedures but includes the following listed in this critical care notation. Total Time Total Critical Care Time: 30
--- NOTE | 2025-04-01 18:59 | CT_ITS ---
PROCEDURE INFORMATION: Exam: CT Abdomen And Pelvis With Contrast Exam date and time: 04/01/2025 7:27 PM Age: 69 years old Clinical indication: Nausea and vomiting; Additional info: Nausea vomiting diarrhea abdominal pain TECHNIQUE: Imaging protocol: Computed tomography of the abdomen and pelvis with contrast. Radiation optimization: All CT scans at this facility use at least one of these dose optimization techniques: automated exposure control; mA and/or kV adjustment per patient size (includes targeted exams where dose is matched to clinical indication); or iterative reconstruction. Contrast material: ISOVUE; Contrast volume: 75 ml; Contrast route: IV; COMPARISON: CT ABDOMEN PELVIS WO CON 11/04/2024 12:42 PM FINDINGS: Liver: Normal. No mass. Gallbladder and biliary ducts: Normal. No calcified stones. No ductal dilation. Pancreas: Normal. No ductal dilation. Spleen: Normal. No splenomegaly. Adrenal glands: Normal. No mass. Kidneys and ureters: No nephroureterolithiasis or hydroureter. Larger exophytic focus in right kidney measuring 2.4 cm not compatible with simple cysts. Stomach and bowel: Nonobstructive fluid-filled loops of small and large bowel with mild mucosal thickening without perienterocolonic fat stranding. Scattered colonic diverticula. Appendix: No evidence of appendicitis. Intraperitoneal space: Unremarkable. No free air. No significant fluid collection. Vasculature: Atherosclerotic calcification of aortoiliac arteries without aneurysm. Ostial atherosclerotic calcification of celiac, superior mesenteric renal arteries with chronic moderate to moderately severe ostial stenoses. Lymph nodes: Unremarkable. No enlarged lymph nodes. Urinary bladder: Unremarkable as visualized. Reproductive: Unremarkable as visualized. Bones/joints: Unremarkable. No acute fracture. Soft tissues: Unremarkable. IMPRESSION: 1. Nonobstructive, fluid-filled loops of small and large bowel with mild mucosal thickening. Correlate with symptoms of low-grade viral enterocolitis. 2. Larger, right renal exophytic focus not consistent with simple cyst. Can not exclude complex cyst and/or cystic solid mass. Recommend initial evaluation with nonurgent ultrasound. 3. Chronic ostial stenoses of celiac, superior mesenteric, renal arteries.
[2025-04-01 19:08] LABS: Basophils # 0.1 K/mm3 (0-0.2); Basophils % 0.3 % (0.1-2.0); Eosinophils % 0.1 % (0.1-12.0); Hematocrit 49.8 % (37.0-47.0); Hemoglobin 16.1 g/dL (12.2-16.2); Immature Granulocytes # 0.15 10^3uL; Immature Granulocytes % 0.7 %; Lymphocytes % 9.8 % (10-50); Mean Corpuscular HGB Conc 32.3 g/dL (31.8-35.4); Mean Corpuscular Hemoglobin 27.3 pg (27.0-31.2); Mean Corpuscular Volume 84.4 fl (81-99); Mean Platelet Volume 12.9 fl (7.4-10.4); Monocytes # 0.5 K/mm3 (0.1-1.0); Monocytes % 2.6 % (1.7-9.3); Neutrophils # 17.5 K/mm3 (1.8-7.8); Neutrophils % 86.5 % (37.0-80.0); Nucleated Red Blood Cells # 0 10^3/uL; Nucleated Red Blood Cells % 0 %; Platelet Count 316 K/mm3 (142-424); Red Cell Distribution Width 15.2 % (11.5-17.5); Red Cell Distribution Width-SD 45.1 fL; White Blood Count 20.3 K/mm3 (4.8-10.8)
[2025-04-01] MEDS: 0.9 % SODIUM CHLORIDE 1000ML 1,000 ML 999 ML IV (19:14)
[2025-04-01 19:19] LABS: Alanine Aminotransferase 19 U/L (12-78); Albumin Level 5.5 g/dl (3.5-5.0); Albumin/Globulin Ratio 1.2 (1.1-1.8); Alkaline Phosphatase 62 U/L (38-126); Aspartate Amino Transferase 41 U/L (14-36); Bilirubin,Total 1.2 mg/dl (0.2-1.3); Blood Urea Nitrogen 20 mg/dl (7-17); Carbon Dioxide 23 mmol/L (22.0-30.0); Chloride 105 mmol/L (98-107); Creatinine Clearance Estimated 37 mL/min (50-200); Estimated Glomerular Filt Rate 44 ml/min (>60); GFR (African American) 54 ML/MIN (>60); Globulin 4.7 g/dL (1.3-3.2); Glucose 193 mg/dl (74-100); Lipase 99 U/L (23-300); Sodium 148 mmol/L (136-145); Total Protein,Serum 10.2 g/dl (6.3-8.2)
[2025-04-01 19:21] LABS: Magnesium 0.2 mg/dl (1.6-2.3)
--- NOTE | 2025-04-01 19:22 | PC.NURSE ---
critical called from lab. Mag 0.2. aware
[2025-04-01 19:35] LABS: Procalcitonin 0.048 ng/mL (0.0-2.0)
[2025-04-01] MEDS: CEFTRIAXONE SODIUM 2 GM in 0.9 % SODIUM CHLORIDE 100 ML IV (19:53)
[2025-04-01] MEDS: MAGNESIUM SULFATE IN WATER 2 GM/50 ML PIGGYBACK IV ×2 (19:54)
[2025-04-01] MEDS: SODIUM CHLORIDE 0.9% 10ML SYR (RAD ONLY) 10 ML IV (20:10)
[2025-04-01] MEDS: IOPAMIDOL-370 (76%);100ML BOTTLE 75 ML IV (20:10)
[2025-04-01 21:25] LABS: Lactic Acid 1.5 mmol/L (0.7-2.1)
[2025-04-01] MEDS: 0.9 % SODIUM CHLORIDE 1000ML 1,500 ML 750 ML IV (22:05)
--- NOTE | 2025-04-01 22:33 | P.HP_ITS ---
<Statement entered by Akhil Lundy MD - 04/04/25 12:31> Personally evaluated the patient and agree with plan of care as outlined by the DUMPCART DRIVER. History of Present Illness *Admission Date: 04/01/25 *Reason for visit:: Nausea vomiting diarrhea, weakness abdominal pain *History of present illness: Ms. Edwards is known to us. She was admitted with similar symptoms back in October. On this admission patient noted for elevated white count, had respiratory rate greater than 30 with shivering, evaluating her GFR which has been lower than what it is today., Patient noted with pacer that appears to be working correctly, also low magnesium which he has had in the past also in 2021. CT scan showing may be low-grade enterocolitis. Have not achieved bowel or urine specimens at this time. Patient has had E. coli in her urine in the past. On arrival patient was quite uncomfortable having hypertension in the 180 systolic tacky into the 120s also respiratory rate at times greater than 30 not running a fever. After some fluid she has improved some is somewhat more comfortable and vital signs have returned basically to normal. Has been treated with Rocephin 2 g in the ER question that this might be a urinary tract infection secondary to E. coli that she has had in the past. Evaluation of cardiac history she has a pacemaker. Also 1 note showing ejection fraction closer to 20., Patient is also had lecture light imbalances question related to different diuretics she has been on. Due to this patient's very complicated history. Including lungs, heart, nausea vomiting and the low ejection fraction with possible sepsis I am going to place the patient in ICU for tonight as she was not stable when she first came into the emergency room.. So after consulting with the ER physician I do feel that she does need to be admitted and is quite fragile since we do not have a definite diagnosis of what has brought on this episode of nausea vomiting with elevated white count. Plan at this time we will also consult cardiology to review the patient medica tions, she appears quite dehydrated at this point in time. Kidney function will be monitored to try to put her back to her baseline. Also also keep her n.p.o. until the morning. I spoke with the patient about her behavior. She says that she has not smoked marijuana for several weeks, this would eliminate hyperemesis syndrome related to that. Also noting the patient had a history of hepatitis C that by labs had cleared in the past with no viral load. [facility] Disclaimer: The information contained in this section may have been updated after the patient was seen, as this information can be updated by other users. Medical History Urinary tract infection Ground glass opacity present on imaging of lung Hyperkalemia Hyperkalemia Hypomagnesemia Acute kidney injury (nontraumatic) At risk for osteoporosis Anemia Healthcare maintenance Tobacco abuse counseling Left knee pain Neck pain Tremor Memory changes Trouble swallowing Abnormal thyroid ultrasound Abnormal thyroid blood test Rash Abnormal hemoglobin Hypotension Abnormal CT of the abdomen Acute hemorrhoid Anxiety Pacemaker Black stools Sepsis Left foot pain Acquired hammer toes of both feet Acquired hallux valgus of left foot Incurved toenail Neuropathy Callus of foot Primary osteoarthritis of both feet Fatigue Dizziness Near syncope Symptomatic bradycardia Bradycardia Abdominal pain Ischemic colitis CHF (congestive heart failure) Non-STEMI (non-ST elevated myocardial infarction) Atrial fibrillation with rapid ventricular response Acute renal failure Dehydration Sepsis CKD (chronic kidney disease) Diarrhea Dehydration DONNIE (acute kidney injury) COVID-19 Sinus bradycardia Viral cardiomyopathy Elevated white blood cell count, unspecified Renal insufficiency Takotsubo cardiomyopathy Elevated left ventricular end-diastolic pressure (LVEDP) Gastroenteritis ST elevation [place] (STEMI) ADIEL (obstructive sleep apnea) TIA (transient ischemic attack) Facial droop Atypical angina HTN (hypertension) Edema Tobacco dependence syndrome Abnormal EKG COPD (chronic obstructive pulmonary disease) Chest pain Overweight (BMI 25.0-29.9) Trapezius muscle strain Pre-ulcerative calluses Lumbar disc disease with radiculopathy Lumbar foraminal stenosis Lumbar spondylosis Back Pain Dizziness Angina pectoris History of CVA (cerebrovascular accident) Solitary lung nodule Palpitations Dyspnea Tobacco user HLD (hyperlipidemia) HHD (hypertensive heart disease) Mitral valve regurgitation CAD (coronary artery disease) Surgical History Presence of cardiac pacemaker Family History Other No significant family history Social History Smoking Status: Never smoker second hand exposure: Yes alcohol intake: never substance use type: denies use current occupational status: unemployed Travel in the last 8 weeks?: None household members: family housing: house current occupational exposures/hazards: No caffeine: Yes Have you lived/traveled outside US in past 30 days?: No Contact w/someone who lives/traveled outside US past 30 days?: No Exposure to someone with infectious disease in past 14 days?: No Do you have a fever (greater than 100.4 F or 38 C)?: No Have you tested positive for COVID-19?: No Exposed to someone with COVID-19 in past 14 days?: No Do you have a sore throat?: No Do you have a cough?: No Do you have any weakness?: No Do you have any diarrhea?: No Are you experiencing any unusual bleeding?: No Do you have any muscle aches/pain?: No Do you have any abdominal pain?: No Are you experiencing loss of taste or smell?: No Other Medical History Have you received the Flu Vaccine for this season: No Have you received the Pneumonia Vaccine: Yes Review of Systems Review of Systems Review of systems:: pertinent systems reviewed and negative unless documented below Constitutional Constitutional: Reports as per HPI, Reports body ache(s), Reports chills, Reports lethargy and Reports weakness Eyes Eyes: Reports as per HPI ENT Ears, Nose, Mouth, and Throat: Reports as per HPI Comments: Patient noted is having very bad teeth with much dental decay, she has been trying to find a way to get the money or insurance to pay for having them removed *Cardiovascular Cardiovascular: Reports as per HPI and Reports dyspnea Comments: Pacemaker in place being monitored by cardiology *Respiratory Respiratory: Reports chest congestion and Reports dyspnea *Gastrointestinal Gastrointestinal: Reports abdominal pain, Reports bloating, Reports loose stools, Reports nausea and Reports vomiting *Genitourinary Genitourinary: Reports as per HPI and Reports vaginal dryness (On estrogen cream) Comments: Patient denies painful urination *Musculoskeletal Musculoskeletal: Reports as per HPI and Reports muscle weakness Integumentary/Breasts Skin/Breast: Reports as per HPI *Neurologic Neurologic: Reports as per HPI and Reports weakness Comments: Patient has become better historian since her vital signs have returned back towards normal., Was unable to give clear history when first arrived to the ER Endocrine Endocrine: Reports as per HPI Hematologic/Lymphatic Hematologic/Lymphatic: Reports as per HPI Allergic/Immunologic Allergic/Immunologic: Reports as per HPI Meds Home Medications and Allergies Home Medications ?Medication ?Instructions ?Recorded ?Confirmed ?Type apixaban 5 mg tablet (Eliquis) 5 mg PO BID 90 days #18 0 tabs 06/13/24 02/14/25 Rx atorvastatin 20 mg tablet 20 mg PO DAILY 90 days #90 t abs 06/13/24 02/14/25 Rx cariprazine 1.5 mg capsule 3 mg (2 x 1.5 mg) PO DAILY 90 days 11/03/24 02/14/25 Rx (Vraylar) #180 caps albuterol sulfate 90 mcg/actuation 2 puff inhalation Q 6HP PRN 11/04/24 02/14/25 History aerosol inhaler Shortness Of Breath escitalopram oxalate 20 mg tablet 20 mg PO DAILY 11/0402/14/25 History omeprazole 20 mg capsule,delayed 20 mg PO DAILY 02/14/25 History release zolpidem 5 mg tablet 5 mg PO HS 11/05/24 02/14/25 History sodium bicarbonate 650 mg tablet 650 mg PO BID 30 days #60 tabs 11/06/24 02/14/25 Rx estradiol 0.01% (0.1 mg/gram) 1 appful vaginal DAILY # 42.5 grams 11/21/24 02/14/25 Rx vaginal cream (Estrace) mirabegron 50 mg tablet,extended 50 mg PO DAILY #90 ta bs 11/21/24 02/14/25 Rx release 24 hr (Myrbetriq) oxybutynin chloride 10 mg 10 mg PO DAILY #30 tabs 02/01/1002/14/25 Rx tablet,extended release 24 hr lorazepam 0.5 mg tablet 0.5 mg PO DAILYP PRN Anxiety #12 12/22/24 02/14/25 Rx tabs alendronate 10 mg tablet 10 mg PO DAILY #30 tabs 03/12/1302/14/25 Rx gabapentin 400 mg capsule 400 mg PO TID 30 days #90 ca ps 02/09/25 02/14/25 Rx furosemide 40 mg tablet 40 mg PO DAILY 90 days #90 t abs 02/20/25 Rx oxycodone 10 mg tablet 10 mg PO TID PRN pain #90 ta bs 03/09/25 Rx cariprazine 1.5 mg (1)-3 mg (6) 1.5 cap PO DAILY Depre ssion 06/14/25 06/14/25 History capsules in a dose pack loratadine 10 mg tablet 10 mg PO DAILY allergies 04/01/25 History New Prescriptions to Start Prescriptions: Allergies Allergy/AdvReac Type Severity Reaction Status Date / Time acetaminophen (From Allergy Unknown Unknown Verified 02/14/25 13:13 DARVOCET-N) allergy reaction codeine (CODEINE) Allergy Unknown Unknown Verified 02/14/25 13:13 allergy reaction propoxyphene (From Allergy Unknown Unknown Verified 02/14/25 13:13 DARVOCET-N) allergy reaction tomato AdvReac Mild Gastrointestinal Verified 02/14/25 13:13 Upset Exam Data for Last 24 hours Vital signs and Labs for Last 24 Hours: Temp Pulse Resp BP Pulse Ox O2 Del Method 97.7 F 71 19 131/77 92 L Room Air 04/01/25 21:22 04/01/25 22:00 04/01/25 22:00 04/01/25 22:00 04/01/25 22:00 04/01/25 21:10 Laboratory Results - last 24 hr 04/01/25 18:45: WBC 20.3 H*, RBC 5.90 H, Hgb 16.1, Hct 49.8 H, MCV 84.4, MCH 27.3, MCHC 32.3, RDW 15.2, Plt Count 316, MPV 12.9 H, Neut % (Auto) 86.5 H, Lymph % (Auto) 9.8 L, [place] % (Auto) 2.6, Eos % (Auto) 0.1, Baso % (Auto) 0.3, Neut # (Auto) 17.5 H, Lymph # (Auto) 2.0, [place] # (Auto) 0.5, Eos # (Auto) 0.0, B aso # (Auto) 0.1, Sodium 148 H, Potassium 4.0, Chloride 105, Carbon Dioxide 23, Anion Gap 24.0 H, BUN 20 H, Creatinine 1.20 H, Estimated Creat Clear 37, Estimated GFR 44 L, Est GFR ( Amer) 54 L, Glucose 193 H, Calcium 10.0, Magnesium 0.2 L, Total Bilirubin 1.2, AST 41 H, ALT 19, Alkaline Phosphatase 62, Total Protein 10.2 H D, Albumin 5.5 H, Globulin 4.7 H, Albumin/Globulin Ratio 1.2, Lipase 99, Procalcitonin 0.048 04/01/25 21:07: Lactate 1.5 I & O for Last 24 hours: Intake & Output 03/30/25 03/31/25 04/01/25 04/02/25 05:59 05:59 05:59 05:59 Weight 120 lb Radiology Reports for the Last 24 Hours: CT of the abdomen low-grade enteritis Constitutional Constitutional: moderate distress, chronically ill appearing and cooperative Comments: Patient has improved since coming into the ER. She is now able to speak clearly to me *Routine HEENT Exam Head: Present normocephalic and atraumatic Eye: Present EOMI and PERRL ENT: Present mucous membranes dry and oropharynx clear Comments: Missing several teeth and other teeth that remain have significant dental decay missing part of their mentation, some decayed down to the gums *Routine Neck Exam Neck: Present supple and full ROM Comments: Patient was able to move neck well no meningeal signs no significant lymph nodes were found thyroid appeared to be normal size *Routine Respiratory Exam Respiratory: Present CTA bilaterally, normal respiratory effort, able to speak in complete sentences and symmetric chest movement Comments: Examining the patient before coming up to the floor after the patient had begun to relax some respiratory rate returning to less than 20 lung sounds actually clear *Routine Cardiovascular Exam Cardiovascular: Present RRR, Normal S1 and Normal S2 Comments: Patient's heart rate while examining before bringing her upstairs was normal sinus rhythm in the 80s *Routine Abdominal Exam Abdominal: Present soft, normoactive bowel sounds, tenderness (Generalized tenderness throughout the abdomen I did not palpate deeply) and distended *Routine Rectal Exam Rectal:: deferred *Routine Genitalia Exam Genitalia:: deferred *Routine Extremities Exam Extremities: Present full ROM, pulses intact and tenderness Comments: Generalized tenderness to the legs especially the back of the thighs. No sign of edema in fact turgor is very poor she still appears to be dehydrated, able to move her feet and knees well when asked to. Also having no problems with moving her arms showing no limits to range of motion in upper extremities, patient was not stood up or walked for this exam Routine Back/Spine/Pelvis Exam Back/Spine: Present full ROM and warmth Comments: Did not walk the patient for this exam back just generalized pain which is part of her chronic conditions she does take medication for this in the past., But no signs of new injury or debilitating condition *Routine Skin Exam Skin: Present intact and dry Comments: Did not find any significant rashes or lesions to the patient's body. Turgor is extremely poor especially in the lower extremities *Routine Neurological Exam Neurological: Present alert, oriented X3, CN II-XII intact, normal reflexes, moving all extremities, normal tone, vision grossly intact and hearing grossly intact Comments: No neurological deficit was found, it was no sign of stroke deficit and the patient was having upon arrival seems to have corrected itself and appears to be related to some form of infection Routine Psychiatric Exam Psychiatric: Present normal affect, normal thought process, cooperative, good insight and good judgment Comments: On secondary evaluation after the patient feeling better she is quite appropriate she answers questions well, only thing she was unclear of was her cardiac history, H&P: Result Impressions 1. Sepsis 2, nausea vomiting diarrhea with dehydration 3. Possible colitis, Imaging and Cardiology CT scan - abdomen: Status: image reviewed by me (Went over CT scan with ER provider) Additional comments: IMPRESSION: 1. Nonobstructive, fluid-filled loops of small and large bowel with mild mucosal thickening. Correlate with symptoms of low-grade viral enterocolitis. 2. Larger, right renal exophytic focus not consistent with simple cyst. Can not exclude complex cyst and/or cystic solid mass. Recommend initial evaluation with nonurgent ultrasound. 3. Chronic ostial stenoses of celiac, superior mesenteric, renal arteries. Assessment and Plan *Assessment and plan (1) Sepsis without septic shock: Status: Acute Category: Medical Code(s): A41.9 - Sepsis, unspecified organism (2) Enteritis: Status: Acute Category: Medical Code(s): K52.9 - Noninfective gastroenteritis and colitis, unspecified (3) Hypomagnesemia: Status: Acute Category: Medical Code(s): E83.42 - Hypomagnesemia (4) Chronic kidney disease, stage 3b: Status: Acute Category: Medical Code(s): N18.32 - Chronic kidney disease, stage 3b (5) Back Pain: Status: Acute Qualifiers: Back pain location: low back pain Chronicity: chronic Back pain laterality: unspecified Sciatica presence: without sciatica Qualified Code(s): M54.50 - Low back pain, unspecified; G89.29 - Other chronic pain Category: Medical Code(s): M54.9 - Dorsalgia, unspecified Plan 1. Will admit the patient to the ICU: This is a we have close monitoring be able to evaluate labs in the morning. Patient has improved since being in the ER with fluids and antibiotics. But due to her history and not having a definitive cause for this potential sepsis, will monitor overnight in the ICU hopefully being able to downgrade her if she remains stable., This is also related to his significant cardiac history having a pacemaker., Also the pat noemí's having a white count of 20,000 with more abdominal pain than is usually noted on her exam from past notes. Continued chills with tremor without fever is confusing., She has such a complicated history I am going to keep her under close monitoring tonight making sure she remained stable and continues to improve., Will get with nursing staff to try to obtain enough stool for culture and also to get a urine. 2. Consult and cardiology to reevaluate for pacemaker and are CHF related to this. Patient's oxygenation did not seem to drop low enough blood pressure remained elevated do not believe this was any type of abdominal or omentum ischemia, but will evaluate for that possibility related to cardiac function. If continued abdominal discomfort and/or nausea and vomiting consider consulting gastroenteritis and on Thursday. Will keep her n.p.o. tonight continue IV fluids at 125 an hour and adjust according to her labs in the morning.
--- NOTE | 2025-04-01 23:06 | PC.NURSE ---
pt to unit via stretcher at [id number]
[2025-04-01] MEDS: LACTATED RINGERS 1000ML 1,000 ML 125 ML IV (23:26)
[2025-04-01] MEDS: FAMOTIDINE 20MG/2ML VIAL 20 MG IV (23:27)
[2025-04-01] MEDS: HYDROMORPHONE 2MG/ML SYRINGE 0.5 MG IV (23:27)
[2025-04-02] VITALS (14 sets, daily range): BP systolic 114–143; BP diastolic 39–57; PULSE 59–80; RESP 14–20; TEMP 36.7–37.1; O2SAT 89–99; BMI 22.1
[2025-04-02] MEDS: HYDROMORPHONE 2MG/ML SYRINGE 0.5 MG IV ×4 (03:31→18:26)
[2025-04-02] MEDS: LACTATED RINGERS 1000ML 1,000 ML 125 ML IV (05:40)
[2025-04-02 06:34] LABS: Chloride 111 mmol/L (98-107)
[2025-04-02 06:35] LABS: Basophils % 0.1 % (0.1-2.0); Hematocrit 38.3 % (37.0-47.0); Immature Granulocytes # 0.07 10^3uL; Immature Granulocytes % 0.4 %; Lymphocytes # 1.1 K/mm3 (0.7-4.5); Lymphocytes % 6.4 % (10-50); Mean Corpuscular HGB Conc 31.1 g/dL (31.8-35.4); Mean Corpuscular Hemoglobin 26.6 pg (27.0-31.2); Mean Corpuscular Volume 85.7 fl (81-99); Mean Platelet Volume 12.4 fl (7.4-10.4); Monocytes # 0.7 K/mm3 (0.1-1.0); Monocytes % 4.4 % (1.7-9.3); Neutrophils # 14.5 K/mm3 (1.8-7.8); Neutrophils % 88.7 % (37.0-80.0); Nucleated Red Blood Cells # 0 10^3/uL; Nucleated Red Blood Cells % 0 %; Platelet Count 213 K/mm3 (142-424); Potassium 3.6 mmoL/L (3.5-5.1); Red Blood Count 4.47 M/mm3 (4.20-5.40); Red Cell Distribution Width-SD 46.6 fL; Sodium 142 mmol/L (136-145); White Blood Count 16.3 K/mm3 (4.8-10.8)
[2025-04-02 06:37] LABS: Anion Gap 10.6 mEq/L (5-15); Blood Urea Nitrogen 19 mg/dl (7-17); Carbon Dioxide 24 mmol/L (22.0-30.0); Creatinine Clearance Estimated 45 mL/min (50-200); Estimated Glomerular Filt Rate 55 ml/min (>60); GFR (African American) 66 ML/MIN (>60); Lipase 56 U/L (23-300)
[2025-04-02 06:38] LABS: Alanine Aminotransferase 12 U/L (12-78); Albumin/Globulin Ratio 1.5 (1.1-1.8); Alkaline Phosphatase 72 U/L (38-126); Aspartate Amino Transferase 27 U/L (14-36); Bilirubin,Total 0.3 mg/dl (0.2-1.3); Calcium 7.3 mg/dl (8.4-10.2); Globulin 2.6 g/dL (1.3-3.2); Glucose 144 mg/dl (74-100); Lactic Acid 1.1 mmol/L (0.7-2.1); Magnesium 1.4 mg/dl (1.6-2.3); Total Protein,Serum 6.6 g/dl (6.3-8.2)
[2025-04-02 07:15] LABS: Lactate Venous 1.8 mmol/L (0.4-2.0); VBG Base Excess -4.4 mmol/L (-2.4-2.3); VBG HCO3 20.9 mmol/L (23-30); VBG Oxygen Saturation 99.1 % (50-70); VBG PCO2 36.8 mmol/L (35-51); VBG PH 7.37 mmol/L (7.31-7.41); VBG PO2 154.7 mmol/L (28-40)
[2025-04-02 08:18] LABS: Gamma Glutamyl Transpeptidase 14 U/L (12-43)
[2025-04-02 08:29] LABS: Microscopic, Urine URINE MICROSCOPIC (MICROSCOPIC)
[2025-04-02 08:34] LABS: Appearance,Urine CLEAR (Clear); Bilirubin,Urine Negative (Negative); Blood, Urine Negative (Negative); Color,Urine YELLOW (Yellow); Glucose,Urine (UA) Negative (Negative); Ketones,Urine Negative (Negative); Leukocyte Esterase,Urine Negative (Negative); Nitrate,Urine Negative (Negative); Protein,Urine TRACE (Negative); Urobilinogen,Urine 0.2 EU/dl (0.2)
[2025-04-02] MEDS: FAMOTIDINE 20MG/2ML VIAL 20 MG IV (08:40)
[2025-04-02] MEDS: SODIUM CHLORIDE 0.9% 10ML VIAL 8 ML IV (08:40)
--- NOTE | 2025-04-02 09:30 | HMH.PHAINT1 ---
Pharmacy Intervention Comments: MEDICATION RECONCILIATION COMPLETED ON PATIENT USING EXTERNAL FILL HISTORY FROM PHARMACY AND VIRI REPORT. -MARGA LEE, [place]
[2025-04-02 10:18] LABS: Hemoglobin A1C 5.5 % (4.0-6.0)
[2025-04-02] MEDS: OXYCODONE 5MG IMMEDIATE RELEASE TABLET 10 MG PO ×2 (13:59→21:04)
[2025-04-02] MEDS: LACTATED RINGERS 1000ML 1,000 ML 100 ML IV (15:09)
--- NOTE | 2025-04-02 15:47 | XR_ITS ---
PROCEDURE INFORMATION: Exam: XR Chest Exam date and time: 04/02/2025 3:54 PM Age: 69 years old Clinical indication: Other: Sepsis workup TECHNIQUE: Imaging protocol: Radiologic exam of the chest. Views: 1 view. COMPARISON: CT LUNG SCREENING 04/26/2024 2:57 PM FINDINGS: Tubes, catheters and devices: Cardiac pulse generator in place. Lungs: Unremarkable. No consolidation. Pleural spaces: Unremarkable. No pleural effusion. No pneumothorax. Heart/Mediastinum: Unremarkable. No cardiomegaly. Bones/joints: Unremarkable. IMPRESSION: No acute findings.
--- OUTSIDE RECORDS SUMMARY | 2025-04-02 15:47 | XMS_ITS | Encounter Summary ---
Author Organization Healthcare Address [address] [place] [address] Care Team Providers Care Abrading Machine Tender Name Role Phone Ronald Gr MD Primary Care Provider [phone] Encounter Details Date Type Department Care Team (Late st Contact Info) Description 11/06/2023 Orders Only External Location [address] [place] [address] Provider, External Social History Tobacco Use Types [...] documented as of this encounter Care Teams Abrading Machine Tender Relationship Specialty Start Date End Date Ronald Gr MD [address] [place] [address] PCP - General 03/01/21 documented as of this encounter
--- OUTSIDE RECORDS SUMMARY | 2025-04-02 15:47 | XMS_ITS | Encounter Summary ---
Author Organization Healthcare Address [address] [place] [address] Care Team Providers Care Geophysical E Logger Name Role Phone Ronald Gr MD Primary Care Provider [phone] Aniyah Duke LPN Unavailable Unavailab le Encounter Details Date Type Department Care Team ([facility] st Contact Info) Description 05/29/2022 Orders Only External Location [address] [place] [address] Neto Woodson, RESIDENTIAL SOLAR SALES CONSULTANT [address] [place] [address] Social History Tobacco Use Types Packs/Day Years [...] documented as of this encounter Care Teams Geophysical E Logger Relationship Specialty Start Date End Date Ronald Gr MD [address] [place] [address] PCP - General 03/01/21 Aniyah Duke LPN VALUE-BASED [place] [address] TCM Nurse 06/10/22 07/10/22 documented as of this encounter
--- OUTSIDE RECORDS SUMMARY | 2025-04-02 15:47 | XMS_ITS | Clinical Summary ---
Author Organization Healthcare Address [address] [place] [address] Care Team Providers Care Rn Employee Health Name Role Phone Ronald Gr MD Primary Care Provider [phone] Allergies Active Allergy Reactions Criticality Noted Date Comments Acetaminophen Unknown - Patient st ates they do not know rxn details Low 05/30/2022 [place] Cough Low 06/29/2023 Codeine Itching Medium 08/27/2016 [...] colitis 07/05/2022 Atherosclerotic heart diseas [place] coronary artery without angina pectoris 06/03/2022 Chronic [...] (05/30/2022): Added automatically from request for surgery [id number] Immunizations Immunization Administration Dates Next Due Hep [...] 2004 UKY-Zoster Vaccines (1 of 2) 2004 [id number] Vaccine ( season) 2024 10/07/2022, 10/24/2021, 01/30/2021, [...] MD fellow Liz Fitch RN nurse [place], furniture repair technician Preprocedure A history and physical has [...] of bowel preparation was evaluated using the Cades Bowel Preparation Scale with scores of: right [...] Antigen Negative Negative 05/30/2022 10:59 AM EDT [facility] Hepatitis C Antibody Positive(A) Negative 05/30/2022 10:59 AM EDT [facility] Comment: This specimen is being sent for confirmation by RT-PCR. This specimen is being sent for confirmation by RT-PCR. Hepatitis A Antibody IgM Negative Negative 05/30/2022 10:59 AM EDT [facility] Hepatitis B Core Antibody IgM Negative Negative 05/30/2022 10:59 AM EDT [facility] Blood Arterial blood specimen / Unknown Venipuncture / Unknown 05/30/2022 6:32 AM EDT 05/30/2022 6:42 AM EDT us Gomez Louis MD LAB BLOOD ORDERABLES Final Resul t [facility] [address] [place] [address] from Last 3 Months or Most Recently Relevant to Health Maintenance Insurance [facility] MEDIC[facility] Advance Directives * Full Code (Latest Code Status on File) Date Activated Date Inactivated Comments 05/29/2022 10:24 PM 06/09/2022 7:33 PM Question Answer Comments Patient has decision-making capacity? Yes Care Teams Rn Employee Health Relationship Specialty Start Date End Date Ronald Gr MD [address] [place] [address] PCP - General 03/01/21
--- OUTSIDE RECORDS SUMMARY | 2025-04-02 15:47 | XMS_ITS | Encounter Summary ---
Author Organization Healthcare Address [address] [place] [address] Care Team Providers Care Industrial Court Magistrate Name Role Phone Ronald Gr MD Primary Care Provider [phone] Aniyah Duke LPN Unavailable Unavailab le Encounter Details Date Type Department Care Team ([facility] st Contact Info) Description 05/27/2022 Orders Only External Location [address] [place] [address] Ronald Gr MD [address] [place] [phone] Social History Tobacco Use Types Packs/Day Years [...] documented as of this encounter Care Teams Industrial Court Magistrate Relationship Specialty Start Date End Date Ronald Gr MD [address] [place] [address] PCP - General 03/01/21 Aniyah Duke LPN VALUE[employer]ED [place] [address] TCM Nurse 06/10/22 07/10/22 documented as of this encounter
--- OUTSIDE RECORDS SUMMARY | 2025-04-02 15:47 | XMS_ITS | Encounter Summary ---
Author Organization Healthcare Address [address] [place] [address] Care Team Providers Care Aboriginal Liaison Officer Name Role Phone Ronald Gr MD Primary Care Provider [phone] Aniyah Duke LPN Unavailable Unavailab le Encounter Details Date Type Department Care Team ([facility] st Contact Info) Description 05/29/2022 Orders Only External Location [address] [place] [address] Ronald Gr MD [address] [phone] Social History Tobacco Use Types Packs/Day Years [...] documented as of this encounter Care Teams Aboriginal Liaison Officer Relationship Specialty Start Date End Date Ronald Gr MD [address] [place] [address] PCP - General 03/01/21 Aniyah Duke LPN [employer] [place] [address] TCM Nurse 06/10/22 07/10/22 documented as of this encounter
--- OUTSIDE RECORDS SUMMARY | 2025-04-02 15:47 | XMS_ITS | Encounter Summary ---
Author Organization Healthcare Address [address] [place] [address] Care Team Providers Care Fountain Server Name Role Phone Ronald Gr MD Primary Care Provider [phone] Aniyah Duke LPN Unavailable Unavailab le Encounter Details Date Type Department Care Team (Late st Contact Info) Description 05/29/2022 Orders Only External Location [address] [place] [address] Cayla Faye, SPECIAL PROCEDURES NURSE [address] [facility] [address] [facility] [address] [place] [address] Social History Tobacco Use Types Packs/Day Years [...] 12:5 3 PM EDT us Cayla Faye SPECIAL PROCEDURES NURSE IMG US PROCEDURES Luanne l Result documented in this encounter Visit Diagnoses Not on filedocumented in this encounter Additional Health Concerns Infection Onset Date Last Indicated Resolved Time C. difficile Rule-Out 06/06/2022 06/06/20222021 7:20 PM EDT Assessment Noted Time A fall risk assessment has been complete d for the patient 12/16/2021 3:35 PM EST documented as of this encounter Care Teams Fountain Server Relationship Specialty Start Date End Date Ronald Gr MD [address] [place] [address] PCP - General 03/01/21 Aniyah Duke LPN [employer] [place] [address] TCM Nurse 06/10/22 07/10/22 documented as of this encounter
--- OUTSIDE RECORDS SUMMARY | 2025-04-02 15:47 | XMS_ITS | Encounter Summary ---
Author Organization Healthcare Address [address] [place] [address] Care Team Providers Care Certified Wellness Program Coordinator Name Role Phone Ronald Gr MD Primary Care Provider + [phone] Aniyah Duke LPN Unavailable Unavailab le Encounter Details Date Type Department Care Team (Late st Contact Info) Description 06/02/2022 Lab Requisition [facility] [address] [place] [address] Ruth Ann Girard MD [address] [place], [place] [id number] Encounter for general adult medical examination without [...] ORDERABLES Final Result [facility] [address] [place] [address] documented in this encounter Visit Diagnoses Diagnosis Encounter for general adult medical examination without abnormal findings documented in this encounter Additional Health Concerns Infection Onset Date Last Indicated Resolved Time C. difficile Rule-Out 06/06/2022 06/06/20222021 7:20 PM EDT Assessment Noted Time A fall risk assessment has been complete d for the patient 12/16/2021 3:35 PM EST documented as of this encounter Care Teams Certified Wellness Program Coordinator Relationship Specialty Start Date End Date Ronald Gr MD [address] [place] [address] PCP - General 03/01/21 Aniyah Duke LPN [employer] [address] TCM Nurse 06/10/22 07/10/22 documented as of this encounter
--- NOTE | 2025-04-02 17:46 | P.PN_ITS ---
Subjective *Date: 04/02/25 *Time: 17:46 Interval history: Patient feeling better this morning, still has some mild abdominal pain. No other concerns. Exam Data for Last 24 hours Vital signs and Labs for Last 24 Hours: Temp Pulse Resp BP Pulse Ox O2 Del Method O2 Flow Rate 98.2 F 60 16 133/47 L 95 Room Air 1 04/02/25 16:00 04/02/25 16:00 04/02/25 16:00 04/02/25 16:00 04/02/25 16:00 04/02/25 17:00 04/02/25 10:00 Laboratory Results - last 24 hr 04/01/25 18:45: WBC 20.3 H*, RBC 5.90 H, Hgb 16.1, Hct 49.8 H, MCV 84.4, MCH 27.3, MCHC 32.3, RDW 15.2, Plt Count 316, MPV 12.9 H, Neut % (Auto) 86.5 H, Lymph % (Auto) 9.8 L, [place] % (Auto) 2.6, Eos % (Auto) 0.1, Baso % (Auto) 0.3, Neut # (Auto) 17.5 H, Lymph # (Auto) 2.0, [place] # (Auto) 0.5, Eos # (Auto) 0.0, Baso # (Auto) 0.1, Sodium 148 H, Potassium 4.0, Chloride 105, Carbon Dioxide 23, Anion Gap 24.0 H, BUN 20 H, Creatinine 1.20 H, Estimated Creat Clear 37, Estimated GFR 44 L, Est GFR ( Amer) 54 L, Glucose 193 H, Calcium 10.0, Magnesium 0.2 L, Total Bilirubin 1.2, AST 41 H, ALT 19, Alkaline Phosphatase 62, Total Protein 10.2 H D, Albumin 5.5 H, Globulin 4.7 H, Albumin/Globulin Ratio 1.2, Lipase 99, Procalcitonin 0.048 04/01/25 21:07: Lactate 1.5 04/02/25 05:45: WBC 16.3 H, RBC 4.47, Hgb 12.0 L D, Hct 38.3, MCV 85.7, MCH 26.6 L, MCHC 31.1 L, RDW 15.0, Plt Count 213 D, MPV 12.4 H, Neut % (Auto) 88.7 H, Lymph % (Auto) 6.4 L, [place] % (Auto) 4.4, Eos % (Auto) 0.0 L, Baso % (Auto) 0.1, Neut # (Auto) 14.5 H, Lymph # (Auto) 1.1, [place] # (Auto) 0.7, Eos # (Auto) 0.0, Baso # (Auto) 0.0, Sodium 142, Potassium 3.6, Chloride 111 H, Carbon Dioxide 24, Anion Gap 10.6, BUN 19 H, Creatinine 1.00, Estimated Creat Clear 45, Estimated GFR 55 L, Est GFR ( Amer) 66 D, Glucose 144 H D, Hemoglobin A1c 5.5, Lactate 1.1, Calcium 7.3 L, Magnesium 1.4 L D, Total Bilirubin 0.3, GGT 14, AST 27 D, ALT 12 D, Alkaline Phosphatase 72, Total Protein 6.6 D, Albumin 4.0 D, Globulin 2.6, Albumin/Globulin Ratio 1.5, Lipase 56 04/02/25 06:55: VBG pH 7.37, VBG pCO2 36.8, VBG pO2 154.7 H, VBG HCO3 20.9 L, VB G Total CO2 22.0 L, VBG O2 Saturation 99.1 H, VBG Base Excess -4.4 L, VBG Lactic Acid 1.8 04/02/25 08:10: Urine Color Yellow, Urine Appearance Clear, Urine pH 6.0, Ur Specific [place] 1.020, Urine Protein Trace, Urine Glucose (UA) Negative, Urine Ketones Negative, Urine Blood Negative, Urine Nitrate Negative, Urine Bilirubin Negative, Urine Urobilinogen 0.2, Ur Leukocyte Esterase Negative, Urine RBC None, Urine WBC None, Ur Squamous Epith Cells None, Other Sediment Comment, Urine Bacteria None I & O for Last 24 hours: Intake & Output 03/30/25 03/31/25 04/01/25 04/02/25 23:59 23:59 23:59 23:59 Intake Total 319 / 319 Output Total 0 / 0 Balance 3190 / 3190 Weight 54.567 kg 54.5 kg Constitutional Constitutional: no acute distress *Routine HEENT Exam Head: Present normocephalic Eye: Present EOMI and PERRL ENT: Present mucous membranes moist *Routine Neck Exam Neck: Present supple; Absent lymphadenopathy *Routine Respiratory Exam Respiratory: Present CTA bilaterally *Routine Cardiovascular Exam Cardiovascular: Present RRR *Routine Abdominal Exam Abdominal: Present soft and normoactive bowel sounds; Absent tenderness *Routine Extremities Exam Extremities: Absent cyanosis, clubbing or edema *Routine Skin Exam Skin: Present warm; Absent rash *Routine Neurological Exam Neurological: Present alert and oriented X3 Assessment and Plan *Assessment and plan (1) Enteritis: Status: Acute Category: Medical Code(s): K52.9 - Noninfective gastroenteritis and colitis, unspecified (2) Hypomagnesemia: Status: Acute Category: Medical Code(s): E83.42 - Hypomagnesemia Plan Yuridia Edwards is a 69-year-old female who presented with nausea/vomiting/diarrhea, abdominal pain and was admitted for meeting SIRS criteria, suspected viral enterocolitis. #Nausea/vomiting/diarrhea #Abdominal pain #Enterocolitis #SIRS criteria ? Presented with nausea/vomiting/diarrhea, abdominal pain. Initially with tachycardia, tachypnea, WBC 20 with neutrophilic predominance. ? No true source of infection other than enterocolitis seen on CT abdomen at this time. UA, CXR unremarkable. Leukocytosis can be reactive in the setting of dehydration. ? Follow-up blood cultures, diarrhea panel. ? WBC improved to 16.3. Ceftriaxone given in the ED. Patient also feels better this morning. ? Continue ceftriaxone daily pending blood cultures. #Hypomagnesemia #Hypocalcemia ? Magnesium 1.4, calcium 7.3. Replating with IV. #HFpEF ? Currently euvolemic. Holding Lasix in the setting of dehydration. #A-fib ? Currently rate controlled. Continue Eliquis 5 mg twice daily. #GERD ? Continue home PPI. Full code DVT prophylaxis: Home Eliquis
--- NOTE | 2025-04-02 18:00 | PC.NURSE ---
PT HAS DONE WELL THIS SHIFT. SHE REMAINS ALERT AND ORIENTED X4. LUNGS CLEAR. TOLERATING ROOM AIR WELL. TURNING IN BED INDEPENDENTLY. HER RIGHT ARM STILL HAS SOME EDEMA ABOUT +2 WITH BLISTERS FROM AN INFILTRATED IV WHILE IN CT LAST NIGHT. SWELLING AND BLISTERS HAVE IMPROVED WITH ICE AND ELEVATION THIS SHIFT. SKIN IS C/D/I. LUNG SOUNDS CLEAR. SHE HAS C/O CHRONIC BACK PAIN THIS SHIFT AND HAS BEEN MEDICATED PER MAR FOR PAIN. STATES PAIN PILLS WORK BETTER FOR HER THAN THE IV DILAUDID.
[2025-04-02] MEDS: PANTOPRAZOLE 40MG TABLET 40 MG PO (21:04)
[2025-04-02] MEDS: *PAT OWN MED* ATORVASTATIN 20MG TABLET 20 MG PO (21:05)
[2025-04-02] MEDS: ZOLPIDEM TARTRATE 5 MG TABLET PO (21:05)
[2025-04-02] MEDS: GABAPENTIN 400MG CAPSULE 400 MG PO (21:05)
[2025-04-02] MEDS: CEFTRIAXONE 1 GM 1 GM in 0.9 % SODIUM CHLORIDE 50 ML IV (21:06)
[2025-04-02] MEDS: CALCIUM CHLORIDE 1 GM in 0.9 % SODIUM CHLORIDE 100 ML IV (21:45)
[2025-04-02] MEDS: *PAT OWN MED* APIXABAN 5MG TABLET 5 MG PO (21:47)
[2025-04-03] VITALS: BP 118/53; PULSE 69; RESP 20; TEMP 36.9; O2SAT 94
[2025-04-03 04:00] VITALS: BP 143/60; PULSE 60; PULSE 61; RESP 15; TEMP 36.9; O2SAT 99; BMI 24.7
[2025-04-03 07:10] LABS: Albumin Level 3.4 g/dl (3.5-5.0); Chloride 111 mmol/L (98-107)
[2025-04-03 07:11] LABS: Potassium 3.1 mmoL/L (3.5-5.1); Sodium 141 mmol/L (136-145)
[2025-04-03 07:13] LABS: Alanine Aminotransferase 11 U/L (12-78); Alkaline Phosphatase 65 U/L (38-126); Anion Gap 4.1 mEq/L (5-15); Aspartate Amino Transferase 29 U/L (14-36); Bilirubin,Total 0.2 mg/dl (0.2-1.3); Blood Urea Nitrogen 13 mg/dl (7-17); Carbon Dioxide 29 mmol/L (22.0-30.0); Creatinine Clearance Estimated 50 mL/min (50-200); Estimated Glomerular Filt Rate 71 ml/min (>60); GFR (African American) 86 ML/MIN (>60)
[2025-04-03 07:14] LABS: Albumin/Globulin Ratio 1.4 (1.1-1.8); Calcium 8.7 mg/dl (8.4-10.2); Globulin 2.5 g/dL (1.3-3.2); Glucose 96 mg/dl (74-100); Magnesium 1.3 mg/dl (1.6-2.3); Total Protein,Serum 5.9 g/dl (6.3-8.2)
[2025-04-03 07:15] LABS: Basophils # 0.1 K/mm3 (0-0.2); Basophils % 0.4 % (0.1-2.0); Eosinophils # 0.2 Kmm3 (0.0-0.4); Eosinophils % 1.9 % (0.1-12.0); Hematocrit 35.3 % (37.0-47.0); Immature Granulocytes # 0.12 10^3uL; Lymphocytes # 3.4 K/mm3 (0.7-4.5); Mean Corpuscular HGB Conc 30.3 g/dL (31.8-35.4); Mean Corpuscular Hemoglobin 26.3 pg (27.0-31.2); Mean Corpuscular Volume 86.7 fl (81-99); Mean Platelet Volume 12.8 fl (7.4-10.4); Monocytes # 0.8 K/mm3 (0.1-1.0); Monocytes % 6.1 % (1.7-9.3); Neutrophils # 7.7 K/mm3 (1.8-7.8); Neutrophils % 62.6 % (37.0-80.0); Nucleated Red Blood Cells # 0 10^3/uL; Nucleated Red Blood Cells % 0 %; Platelet Count 180 K/mm3 (142-424); Red Blood Count 4.07 M/mm3 (4.20-5.40); Red Cell Distribution Width 14.7 % (11.5-17.5); Red Cell Distribution Width-SD 46.8 fL; White Blood Count 12.2 K/mm3 (4.8-10.8)
[2025-04-03 08:00] VITALS: PULSE 60; O2SAT 99
[2025-04-03 08:01] VITALS: BP 153/67; PULSE 60; RESP 16; TEMP 36.7; O2SAT 98
[2025-04-03] MEDS: *PAT OWN MED* APIXABAN 5MG TABLET 5 MG PO (08:23)
[2025-04-03] MEDS: CARIPRAZINE 1.5 MG 1.5 EACH PO (08:23)
[2025-04-03] MEDS: SODIUM CHLORIDE 0.9% 10ML VIAL 8 ML IV (08:24)
[2025-04-03] MEDS: ESCITALOPRAM 20 MG PO (08:24)
[2025-04-03] MEDS: FAMOTIDINE 20MG/2ML VIAL 20 MG IV (08:24)
[2025-04-03] MEDS: LORATADINE 10 MG PO (08:25)
[2025-04-03] MEDS: OXYCODONE 5MG IMMEDIATE RELEASE TABLET 10 MG PO ×2 (08:25→13:22)
[2025-04-03] MEDS: GABAPENTIN 400MG CAPSULE 400 MG PO ×2 (08:27→13:18)
[2025-04-03 08:40] LABS: Hemoglobin 11.1 g/dL (12.2-16.2)
[2025-04-03] MEDS: MAGNESIUM SULFATE IN WATER 2 GM/50 ML PIGGYBACK IV ×3 (10:10→13:16)
[2025-04-03] MEDS: POTASSIUM CHLORIDE 20MEQ TAB 40 MEQ PO ×2 (10:11→13:17)
--- NOTE | 2025-04-03 10:40 | EXP.DC.SUM ---
General Admission date:: 04/01/25 Discharge date: 04/03/25 HPI HPI HPI: Ms. Edwards is known to us. She was admitted with similar symptoms back in October. On this admission patient noted for elevated white count, had respiratory rate greater than 30 with shivering, evaluating her GFR which has been lower than what it is today., Patient noted with pacer that appears to be working correctly, also low magnesium which he has had in the past also in 2021. CT scan showing may be low-grade enterocolitis. Have not achieved bowel or urine specimens at this time. Patient has had E. coli in her urine in the past. On arrival patient was quite uncomfortable having hypertension in the 180 systolic tacky into the 120s also respiratory rate at times greater than 30 not running a fever. After some fluid she has improved some is somewhat more comfortable and vital signs have returned basically to normal. Has been treated with Rocephin 2 g in the ER question that this might be a urinary tract infection secondary to E. coli that she has had in the past. Evaluation of cardiac history she has a pacemaker. Also 1 note showing ejection fraction closer to 20., Patient is also had lecture light imbalances question related to different diuretics she has been on. Due to this patient's very complicated history. Including lungs, heart, nausea vomiting and the low ejection fraction with possible sepsis I am going to place the patient in ICU for tonight as she was not stable when she first came into the emergency room.. So after consulting with the ER physician I do feel that she does need to be admitted and is quite fragile since we do not have a definite diagnosis of what has brought on this episode of nausea vomiting with elevated white count. Plan at this time we will also consult cardiology to review the patient medications, she appears quite dehydrated at this point in time. Kidney function will be monitored to try to put her back to her baseline. Also also keep her n.p.o. until the morning. I spoke with the patient about her behavior. She says that she has not smoked marijuana for several weeks, this would eliminate hyperemesis syndrome related to that. Also noting the patient had a history of hepatitis C that by labs had cleared in the past with no viral load. Hospital Course Hospital Course Hospital Course: Yuridia Edwards is a 69-year-old female who presented with nausea/vomiting/diarrhea, abdominal pain and was admitted for meeting SIRS criteria, suspected viral enterocolitis. Showed improvement during admission. White count improved from 20-12. No focal source of infection identified. Tolerating p.o. intake, improvement in diarrhea. Given her negative cultures and improvement clinically, stable discharge home with further management as an outpatient. #Nausea/vomiting/diarrhea #Abdominal pain #Enterocolitis #SIRS criteria ? Presented with nausea/vomiting/diarrhea, abdominal pain. Initially with tachycardia, tachypnea, WBC 20 with neutrophilic predominance. No true source of infection other than enterocolitis seen on CT abdomen at this time. UA, CXR unremarkable. Leukocytosis can be reactive in the setting of dehydration. White count improved to 12 but of discharge. Remained afebrile for 48 hours. Blood cultures remain negative. Unable to collect diarrhea panel. Was initiated on ceftriaxone during admission. Will complete empiric 5-day course of antibiotics with cefdinir. No clear source however given improvement in white count with antibiotics, would benefit from short course to complete. Improved abdominal exam. Good tolerance of p.o. nutrition. #Hypomagnesemia #Hypocalcemia ? Electrolytes improved during admission. Continue supplementation. #HFpEF: Currently euvolemic. Okay to resume Lasix at discharge. #A-fib: Currently rate controlled. Continue Eliquis 5 mg twice daily. #GERD: Continue home PPI. Continue home meds for anxiety and depression Total time spent on discharge 32 minutes in counseling, documentation, chart review, and direct care with patient. Exam Data for Last 24 hours Vital signs and Labs for Last 24 Hours: Temp Pulse Resp BP Pulse Ox O2 Del Method O2 Flow Rate 98.1 F 60 16 153/67 H 98 Nasal Cannula 1 04/03/25 08:01 04/03/25 08:01 04/03/25 08:01 04/03/25 08:01 04/03/25 08:01 04/03/25 08:01 04/03/25 08:01 Laboratory Results - last 24 hr 04/03/25 05:37: WBC 12.2 H D, RBC 4.07 L, Hgb 11.1 L, Hct 35.3 L, MCV 86.7, MCH 26.3 L, MCHC 30.3 L, RDW 14.7, Plt Count 180, MPV 12.8 H, Neut % (Auto) 62.6, Lymph % (Auto) 28.0, [place] % (Auto) 6.1, Eos % (Auto) 1.9, Baso % (Auto) 0.4, Neut # (Auto) 7.7, Lymph # (Auto) 3.4, [place] # (Auto) 0.8, Eos # (Auto) 0.2, Baso # (Auto) 0.1, Sodium 141, Potassium 3.1 L, Chloride 111 H, Carbon Dioxide 29, Anion Gap 4.1 L, BUN 13 D, Creatinine 0.80, Estimated Creat Clear 50, Estimated GFR 71, Est GFR ( Amer) 86 D, Glucose 96 D, Calcium 8.7, Magnesium 1.3 L, Total Bilirubin 0.2, AST 29, ALT 11 L, Alkaline Phosphatase 65, Total Protein 5.9 L, Albumin 3.4 L D, Globulin 2.5, Albumin/Globulin Ratio 1.4 I & O for Last 24 hours: Intake & Output 03/31/25 04/01/25 04/02/25 04/03/25 23:59 23:59 23:59 23:59 Intake Total 3583 / 3683 100 / 100 Output Total 300 / 300 Balance 3283 / 3383 100 / 100 Weight 54.567 kg 54.5 kg 60.827 kg Microbiology Reports for the Last 24 Hours: Microbiology 04/01/25 22:40 Rectum CRE Surveillance Culture - Final Negative 04/01/25 19:42 Blood Blood Culture - Preliminary NO GROWTH AFTER 24 HOURS 04/01/25 19:36 Blood Blood Culture - Preliminary NO GROWTH AFTER 24 HOURS Constitutional Constitutional: no acute distress, thin, chronically ill appearing and cooperative *Routine HEENT Exam Head: Present normocephalic Eye: Present EOMI and PERRL ENT: Present mucous membranes moist *Routine Neck Exam Neck: Present supple; Absent lymphadenopathy *Routine Respiratory Exam Respiratory: Present CTA bilaterally; Absent rhonchi or wheezes *Routine Cardiovascular Exam Cardiovascular: Present RRR *Routine Abdominal Exam Abdominal: Present soft and normoactive bowel sounds; Absent tenderness *Routine Rectal Exam Patient deferred: visual exam *Routine Exam Patient deferred: external exam *Routine Extremities Exam Extremities: Absent cyanosis, clubbing or edema *Routine Skin Exam Skin: Present intact and warm; Absent rash *Routine Neurological Exam Neurological: Present alert, oriented X3 and moving all extremities; Absent altered mental status Results Data Completed and Pending Labs on day of discharge: Labs from last 24 hours 04/03/25 05:37 WBC 12.2 H D RBC 4.07 L Hgb 11.1 L Hct 35.3 L MCV 86.7 MCH 26.3 L MCHC 30.3 L RDW 14.7 Plt Count 180 MPV 12.8 H Neut % (Auto) 62.6 Lymph % (Auto) 28.0 [place] % (Auto) 6.1 Eos % (Auto) 1.9 Baso % (Auto) 0.4 Neut # (Auto) 7.7 Lymph # (Auto) 3.4 [place] # (Auto) 0.8 Eos # (Auto) 0.2 Baso # (Auto) 0.1 Sodium 141 Potassium 3.1 L Chloride 111 H Carbon Dioxide 29 Anion Gap 4.1 L BUN 13 D Creatinine 0.80 Estimated Creat Clear 50 Estimated GFR 71 Est GFR ( Amer) 86 D Glucose 96 D Calcium 8.7 Magnesium 1.3 L Total Bilirubin 0.2 AST 29 ALT 11 L Alkaline Phosphatase 65 Total Protein 5.9 L Albumin 3.4 L D Globulin 2.5 Albumin/Globulin Ratio 1.4 Preliminary micro results at discharge 04/01/25 19:42 Blood Culture - Preliminary Blood NO GROWTH AFTER 24 HOURS 04/01/25 19:36 Blood Culture - Preliminary Blood NO GROWTH AFTER 24 HOURS DS: Diagnosis Discharge Diagnosis (1) Enteritis: Status: Acute Code(s): K52.9 - Noninfective gastroenteritis and colitis, unspecified (2) Hypomagnesemia: Status: Acute Code(s): E83.42 - Hypomagnesemia Meds Home Medications and Allergies Home Medications ?Medication ?Instructions ?Recorded ?Confirmed ?Type apixaban 5 mg tablet (Eliquis) 5 mg PO BID 90 days #180 tabs 06/13/24 04/01/25 Rx atorvastatin 20 mg tablet 20 mg PO DAILY 90 days #90 tabs 06/13/24 04/01/25 Rx albuterol sulfate 90 mcg/actuation 2 puff inhalation Q6HP PRN 11/04/24 04/02/25 History aerosol inhaler Shortness Of Breath escitalopram oxalate 20 mg tablet 20 mg PO DAILY mood 11/04/24 04/01/25 History lorazepam 0.5 mg tablet 0.5 mg PO DAILYP PRN Anxiety #12 12/22/24 04/01/25 Rx tabs alendronate 10 mg tablet 10 mg PO DAILY #30 tabs 12/28/24 04/01/25 Rx furosemide 40 mg tablet 40 mg PO DAILY 90 days #90 tabs 02/20/25 04/01/25 Rx loratadine 10 mg tablet 10 mg PO DAILY 04/01/25 04/01/25 History cariprazine 1.5 mg capsule 1.5 mg PO DAILY 04/02/25 04/02/25 History (Vraylar) oxycodone 10 mg tablet 10 mg PO TIDP PRN Moderate Pain 04/02/25 04/02/25 History (Scale Score 5-6) zolpidem 5 mg tablet 5 mg PO HSP PRN Insomnia 04/02/25 04/02/25 History cefdinir 300 mg capsule 300 mg PO BID 3 days #6 caps 04/03/25 Rx gabapentin 400 mg capsule 400 mg PO TID 30 days #90 caps 04/03/25 Rx pantoprazole 40 mg tablet,delayed 40 mg PO HS 30 days #30 tabs 04/03/25 Rx release New Prescriptions to Start Prescriptions: Hemant Laura pantoprazole Hemant Wolfe Allergies Allergy/AdvReac Type Severity Reaction Status Date / Time acetaminophen (From Allergy Unknown Unknown Verified 02/14/25 13:13 DARVOCET-N) allergy reaction codeine (CODEINE) Allergy Unknown Unknown Verified 02/14/25 13:13 allergy reaction propoxyphene (From Allergy Unknown Unknown Verified 02/14/25 13:13 DARVOCET-N) allergy reaction tomato AdvReac Mild Gastrointestinal Verified 02/14/25 13:13 Upset Discharge Plan Disposition Patient Disposition: Home, Self-Care Condition: Fair Discharge Order Discharge Orders: Discharge Order (Routine); Ordered 04/03/25 Ordered By: Hemant Wolfe Follow up Plan Follow up with: Rahul Pastor DO [Primary Care Provider, Family Practice] - 04/19/25 1:00 pm Prescriptions/Medication Reconciliation: New pantoprazole 40 mg Tablet,Delayed Release (Dr/Ec) 40 mg PO HS 30 Days Qty: 30 0RF cefdinir 300 mg capsule 300 mg PO BID 3 Days Qty: 6 0RF Continued Eliquis 5 mg tablet 5 mg PO BID 90 Days Qty: 180 4RF atorvastatin 20 mg tablet 20 mg PO DAILY 90 Days Qty: 90 4RF alendronate 10 mg tablet 10 mg PO DAILY Qty: 30 2RF lorazepam 0.5 mg tablet 0.5 mg PO DAILYP PRN (Reason: Anxiety) Qty: 12 0RF furosemide 40 mg tablet 40 mg PO DAILY 90 Days Qty: 90 4RF albuterol sulfate 90 mcg/actuation HFA aerosol inhaler 2 puff inhalation Q6HP PRN (Reason: Shortness Of Breath) escitalopram oxalate 20 mg tablet 20 mg PO DAILY loratadine 10 mg tablet 10 mg PO DAILY Vraylar 1.5 mg capsule 1.5 mg PO DAILY oxycodone 10 mg tablet 10 mg PO TIDP PRN (Reason: Moderate Pain (Scale Score 5-6)) zolpidem 5 mg tablet 5 mg PO HSP PRN (Reason: Insomnia) Discontinued omeprazole 20 mg capsule,delayed release(DR/EC) 20 mg PO DAILY No Action gabapentin 400 mg capsule 400 mg PO TID 30 Days Qty: 90 1RF Problem Reconciliation Problems Reviewed?: Yes Patient Discharge Instructions ACTIVITY: Continue current activity DIET: continue same diet Patient Instructions: DI for Sepsis -- Adult, DI for Enteritis, DI for Hypomagnesemia, Stop Light COPD, Stop Light Heart Failure, Stop Light Infection Print Language: Citizen Of [place] Providers Primary Care Provider: Rahul Pastor Admit Provider: Akhil Lundy Attending Provider: Akhil Lundy
--- NOTE | 2025-04-03 10:49 | PC.NURSE ---
Patient called out IV site was bleeding, this nurse with another RN tried to flush the line. The line would not flush and patient was reporting pain. Removed IV, lots of bleeding was seen at IV site, pressure dressing applied with RN holding for about 5 minutes. Reapplied another pressure dressing at site. Positive PMS.
[2025-04-03 12:00] VITALS: BP 136/70; PULSE 60; PULSE 61; RESP 21; TEMP 36.6; O2SAT 96
--- NOTE | 2025-04-05 10:44 | SW/DCPLANNER ---
Phoned patient x2. No answer and was unable to leave messages. Billy SAUCEDO Fleet Administrator
== END 2025-04-03 15:20 | disposition home or self-care (01) ==
LOC: ER 21:48 → ICU 22:07
PROVIDERS: Nurse Practitioner Family; Physician Assistant; Admitting Provider Student in an Organized Health Care Education/Training Program; Emergency Provider Emergency Medicine; PCP Internal Medicine; Visit Provider Student in an Organized Health Care Education/Training Program
DX: K52.9 Noninfective gastroenteritis and colitis, unspecified (principal); A41.9 Sepsis, unspecified organism; E83.42 Hypomagnesemia; E83.51 Hypocalcemia; K21.9 Gastro-esophageal reflux disease without esophagitis; I13.0 Hypertensive heart and chronic kidney disease with heart failure and stage 1 through stage 4 chronic kidney disease, or unspecified chronic kidney disease; N28.1 Cyst of kidney, acquired; I48.91 Unspecified atrial fibrillation; M54.50 Low back pain, unspecified; G89.29 Other chronic pain; I50.30 Unspecified diastolic (congestive) heart failure; G62.9 Polyneuropathy, unspecified; E78.5 Hyperlipidemia, unspecified; J44.9 Chronic obstructive pulmonary disease, unspecified; F41.9 Anxiety disorder, unspecified; N18.32 Chronic kidney disease, stage 3b; F32.A Depression, unspecified; I25.2 Old myocardial infarction; I25.10 Atherosclerotic heart disease of native coronary artery without angina pectoris; F17.210 Nicotine dependence, cigarettes, uncomplicated; Z88.6 Allergy status to analgesic agent; Z88.5 Allergy status to narcotic agent; Z91.018 Allergy to other foods; Z95.0 Presence of cardiac pacemaker; Z86.73 Personal history of transient ischemic attack (TIA), and cerebral infarction without residual deficits; Z79.899 Other long term (current) drug therapy; Z79.83 Long term (current) use of bisphosphonates; Z79.01 Long term (current) use of anticoagulants
CPT/HCPCS: 96361 ×2; 96365; 96375 ×2; 96376 ×2; 36415; 71045; 74177; 80053; 81001; 82803; 82977; 83036; 83605; 83690; 83735; 84145; 85025; 87040; 87081; 93005; G0378; J0696; J1171; J3475; J7030; J7120; Q9967

== ENCOUNTER 2025-08-28 15:16 | Observation (INO) | payer MEDICARE, SELFPAY ==
[2025-08-28] VITALS (11 sets, daily range): BP systolic 105–182; BP diastolic 69–84; PULSE 60–105; RESP 16–18; TEMP 36.4–36.7; O2SAT 92–98; BMI 25.6; BMI 31.7
--- NOTE | 2025-08-28 15:21 | XR_ITS ---
FINAL REPORT CLINICAL HISTORY: short of breath COMPARISON: 04/02/2025 FINDINGS: A single frontal view of the chest was obtained. No acute pulmonary opacity is present. There is no evidence of effusion or pneumothorax. Mediastinum is unremarkable. Left-sided pacer is present. Heart size is normal. IMPRESSION: No acute abnormality. Reviewed, Interpreted and Dictated by Usman Robles MD Transcribed by Rosario Tellez Authenticated and [facility]
--- NOTE | 2025-08-28 15:23 | ED_ITS ---
<Statement entered by Naomi Tsang DO - 08/28/25 20:40> I was consulted by the [facility], and we discussed the complexity of problems being addressed. I approved the treatment plan and management plan of this patient's care in the emergency department, thus performing a substantive portion of medical decision making. Naomi Tsang DO Discharge Plan Disposition Chief Complaint: Nausea/Vomiting/Diarrhea Prescriptions Prescriptions: No Action loperamide 2 mg capsule 2 mg PO Q6H PRN Patient Comments: TAKE 1 CAPSULE BY MOUTH EVERY 6 HOURS NEEDED FOR DIARRHEA ondansetron 4 mg tablet,disintegrating 4 mg PO Q12H PRN Patient Comments: DISSOLVE 1 TABLET ON THE TONGUE 2 TIMES A DAY NEEDED FOR NAUSEA AND VOMITING gabapentin 400 mg capsule 400 mg PO TID 30 Days Qty: 90 1RF loratadine 10 mg tablet See Rx Instructions .ROUTE .COMPLEX Qty: 90 0RF Dose Instruction: TAKE 1 TABLET BY MOUTH ONCE A DAY FOR ALLERGY SYMPTOMS Rx Instructions: TAKE 1 TABLET BY MOUTH ONCE A DAY FOR ALLERGY SYMPTOMS atorvastatin 20 mg tablet See Rx Instructions .ROUTE .COMPLEX Qty: 90 3RF Dose Instruction: TAKE 1 TABLET BY MOUTH ONCE A DAY Rx Instructions: TAKE 1 TABLET BY MOUTH ONCE A DAY furosemide 40 mg tablet See Rx Instructions .ROUTE .COMPLEX Qty: 90 4RF Dose Instruction: TAKE 1 TABLET BY MOUTH ONCE A DAY Rx Instructions: TAKE 1 TABLET BY MOUTH ONCE A DAY Vraylar 1.5 mg capsule See Rx Instructions .ROUTE .COMPLEX Qty: 90 3RF Dose Instruction: TAKE 1 CAPSULE BY MOUTH ONCE A DAY Rx Instructions: TAKE 1 CAPSULE BY MOUTH ONCE A DAY escitalopram oxalate 20 mg tablet See Rx Instructions .ROUTE .COMPLEX Qty: 90 3RF Dose Instruction: TAKE 1 TABLET BY MOUTH ONCE A DAY FOR mood Rx Instructions: TAKE 1 TABLET BY MOUTH ONCE A DAY FOR mood alendronate 10 mg tablet See Rx Instructions .ROUTE .COMPLEX Qty: 90 3RF Dose Instruction: TAKE 1 TABLET BY MOUTH ONCE A DAY Rx Instructions: TAKE 1 TABLET BY MOUTH ONCE A DAY pantoprazole 40 mg tablet,delayed release (DR/EC) 40 mg PO HS 30 Days Qty: 30 0RF amoxicillin-pot clavulanate 500-125 mg tablet 1 tab PO BID Qty: 14 0RF oxycodone 10 mg tablet 10 mg PO TIDP PRN (Reason: Moderate Pain (Scale Score 5-6)) Qty: 90 0RF Eliquis 5 mg tablet See Rx Instructions .ROUTE .COMPLEX Qty: 60 0RF Dose Instruction: TAKE 1 TABLET BY MOUTH 2 TIMES A DAY Rx Instructions: TAKE 1 TABLET BY MOUTH 2 TIMES A DAY albuterol sulfate 90 mcg/actuation HFA aerosol inhaler 2 puff inhalation Q6HP PRN (Reason: Shortness Of Breath) Referrals Follow up/Referrals: Eileen Gil APRN [Primary Care Provider, Family Practice] - See instructions Instructions Patient Instructions: DI for Diarrhea and Traveler's Diarrhea in Adults, DI for Diarrhea and Traveler's Diarrhea in Children, DI for Nausea in Adults, DI for Nausea in Children Print Language Print Language: Sinhala Discharge ED Provider: Naomi Tsang General Adult HPI <Katherine Charlton (ED)YADIEL - Last Filed: 08/28/25 19:33> General Chief complaint: Nausea/Vomiting/Diarrhea Stated complaint: nausea/vomiting/diarrhea Time Seen by Provider: 08/28/25 15:20 Mode of Arrival: EMS Source of Information: Patient and EMS Description of Symptoms (Recalled from ER Triage Doc. by RN): pt has had n/v/d since last night. has been unable to get out of bed since the illness began. She normally walks without issue. complains of abdominal cramping. chronic kidney disease History of Present Illness HPI narrative: 69-year-old female presents via EMS for 2 days of nausea, vomiting and diarrhea. Patient has vomited 3 times on EMS. She has had no fevers and stable vital signs. She started about dinnertime last night and tried some soup but that did not go well. She has been soiling herself for 3 days. Patient has been soiling herself with diarrhea and urine. She denies any pain. Related Data Home Medications ?Medication ?Instructions ?Recorded ?Confirmed albuterol sulfate 90 mcg/actuation 2 puff inhalation Q 6HP PRN 11/04/24 08/04/25 aerosol inhaler Shortness Of Breath loperamide 2 mg capsule 2 mg PO Q6H PRN 06/15/25 ondansetron 4 mg disintegrating 4 mg PO Q12H PRN 06/1508/04/25 tablet Previous Rx's ?Medication ?Instructions ?Recorded loratadine 10 mg tablet See Rx Instructions .Route 0 05/30/25 .COMPLEX #90 tabs atorvastatin 20 mg tablet See Rx Instructions .Route 1 .COMPLEX #90 tabs cariprazine 1.5 mg capsule See Rx Instructions .Route 07/31/25 (Vraylar) .COMPLEX #90 caps furosemide 40 mg tablet See Rx Instructions .Route 1 .COMPLEX #90 tabs gabapentin 400 mg capsule 400 mg PO TID 30 days #90 ca ps 08/04/25 alendronate 10 mg tablet See Rx Instructions .Route 1 .COMPLEX #90 tabs amoxicillin 500 mg-potassium 1 tab PO BID #14 tabs clavulanate 125 mg tablet escitalopram oxalate 20 mg tablet See Rx Instructions .Route 08/10/25 .COMPLEX #90 tabs pantoprazole 40 mg tablet,delayed 40 mg PO HS 30 days #30 tabs 08/10/25 release oxycodone 10 mg tablet 10 mg PO TIDP PRN Moderate P ain 08/15/25 (Scale Score 5-6) #90 tabs apixaban 5 mg tablet (Eliquis) See Rx Instructions .Ro lali 08/28/25 .COMPLEX #60 tabs Allergies Allergy/AdvReac Type Severity Reaction Status Date / Time acetaminophen (From Allergy Unknown Unknown Verified 08/04/25 13:52 DARVOCET-N) allergy reaction codeine (CODEINE) Allergy Unknown Unknown Verified 08/04/25 13:52 allergy reaction propoxyphene (From Allergy Unknown Unknown Verified 08/04/25 13:52 DARVOCET-N) allergy reaction tomato AdvReac Mild Gastrointestinal Verified 08/04/25 13:52 Upset PFS <Katherine Charlton (ED), DIRECTOR PAYER - Last Filed: 08/28/25 19:33> [facility] Disclaimer: The information contained in this section may have been updated after the patient was seen, as this information can be updated by other users. Medical History Abdominal pain Abnormal CT of the abdomen Abnormal EKG Abnormal hemoglobin Abnormal thyroid blood test Abnormal thyroid ultrasound Acquired hallux valgus of left foot Acquired hammer toes of both feet Acute hemorrhoid Acute kidney injury (nontraumatic) Acute renal failure DONNIE (acute kidney injury) Anemia Angina pectoris Anxiety At risk for osteoporosis Atrial fibrillation with rapid ventricular response Atypical angina Back Pain Black stools Bradycardia CAD (coronary artery disease) Callus of foot Chest pain CHF (congestive heart failure) CKD (chronic kidney disease) COPD (chronic obstructive pulmonary disease) COVID-19 Dehydration Dehydration Diarrhea Dizziness Dizziness Dyspnea Edema Elevated left ventricular end-diastolic pressure (LVEDP) Elevated white blood cell count, unspecified Enteritis Facial droop Fatigue Gastroenteritis Ground glass opacity present on imaging of lung Healthcare maintenance HHD (hypertensive heart disease) History of CVA (cerebrovascular accident) HLD (hyperlipidemia) HTN (hypertension) Hyperkalemia Hyperkalemia Hypomagnesemia Hypotension Incurved toenail Ischemic colitis Left foot pain Left knee pain Lumbar disc disease with radiculopathy Lumbar foraminal stenosis Lumbar spondylosis Memory changes Mitral valve regurgitation Near syncope Neck pain Neuropathy Non-STEMI (non-ST elevated myocardial infarction) ADIEL (obstructive sleep apnea) Overweight (BMI 25.0-29.9) Pacemaker Palpitations Pre-ulcerative calluses Primary osteoarthritis of both feet Rash Renal insufficiency Sepsis Sepsis Sepsis without septic shock Sinus bradycardia Skin lesions Solitary lung nodule ST elevation DE (STEMI) Symptomatic bradycardia Takotsubo cardiomyopathy TIA (transient ischemic attack) Tobacco abuse counseling Tobacco dependence syndrome Tobacco user Trapezius muscle strain Tremor Trouble swallowing Urinary tract infection Viral cardiomyopathy Wound of right upper extremity right AC Surgical History Presence of cardiac pacemaker Family History Other No significant family history Social History (Updated 08/04/25 @ 14:05 by Kylah Hermosillo CMA) Smoking Status: Never smoker smoking status start date: 1989 smoked: 35 second hand exposure: Yes alcohol intake: never substance use type: prescription drug current occupational status: disabled Travel in the last 8 weeks?: None household members: family housing: house current occupational exposures/hazards: No caffeine: Yes Have you lived/traveled outside US in past 30 days?: No Contact w/someone who lives/traveled outside US past 30 days?: No Exposure to someone with infectious disease in past 14 days?: No Do you have a fever (greater than 100.4 F or 38 C)?: No Have you tested positive for COVID-19?: No Exposed to someone with COVID-19 in past 14 days?: No Do you have a sore throat?: No Do you have a cough?: No Do you have any weakness?: No Do you have any diarrhea?: No Are you experiencing any unusual bleeding?: No Do you have any muscle aches/pain?: No Do you have any abdominal pain?: No Are you experiencing loss of taste or smell?: No Other Medical History Have you received the Flu Vaccine for this season: No (off season) Have you received the Pneumonia Vaccine: Yes <Katherine Charlton (ED), DIRECTOR PAYER - Last Filed: 08/28/25 19:33> ROS Obtained: Yes Systems reviewed as appropriate & no additional complaints except as documented Constitutional Constitutional: Reports as per HPI Physical Exam <Katherine Charlton (ED), DIRECTOR PAYER - Last Filed: 08/28/25 19:33> General General appearance: alert and in no apparent distress Head Head exam: atraumatic and normocephalic Eye Eye exam: Present PERRL and EOMI ENT ENT exam: Present normal oropharynx and mucous membranes moist Neck Neck exam: Present full ROM and trachea midline Respiratory Respiratory exam: Present normal lung sounds bilaterally Cardiovascular Cardiovascular exam: Present regular rate, normal rhythm, normal heart sounds, +S1 and +S2 Abdominal Exam Abdominal exam: Present soft and normal bowel sounds Extremities Exam Extremities exam: Present normal inspection, full ROM and normal capillary refill Neurological Exam Neurological exam: Present alert and oriented X3 Skin Skin exam: Present warm Medical Decision Making <Katherine Charlton (ED), DIRECTOR PAYER - Last Filed: 08/28/25 19:33> Medical Records Screening: Per USPSTF and CDC recommendations, given the prevalence of disease in our region, it is our hospital?s policy to screen for HIV and viral Hepatitis for all patients aged 18 and over and those with ongoing risk factors. Honorio Inquiry Pt receiving controlled substance: No Honorio was queried for this patient: No Vital Signs: 08/28/25 15:19 Temperature 97.5 F L Temperature Source Axillary Pulse Rate [Right] 63 Respiratory Rate 16 Blood Pressure [Right Arm] 178/78 H Blood Pressure Mean [Right Arm] 111 02 Sat by Pulse Oximetry 95 Oxygen Delivery Method Room Air Lab Data Lab Results 08/28/25 15:05: Sodium 145, Potassium 3.5, Chloride 102, Carbon Dioxide 25, A nion Gap 21.5 H, BUN 24 H, Creatinine 1.10 H, Estimated Creat Clear 48, E stimated GFR 49 L, Est GFR ( Amer) 59, Glucose 174 H, Calcium 10.8 H, M agnesium < 0.2 L, Total Bilirubin 1.1, AST 46 H, ALT 36, Alkaline Phosphatase 72, Troponin I 0.01, Total Protein 9.6 H D, Albumin 5.4 H, Globulin 4.2 H, Albumin/Globulin Ratio 1.3, Lipase 111 08/28/25 15:21: SARS-CoV-2 (PCR) Not detected, Influenza A Untype (PCR) Not detected, Influenza Type B (PCR) Not detected 08/28/25 17:20: WBC 24.4 H*, RBC 5.77 H, Hgb 15.8, Hct 50.0 H, MCV 86.7, MCH 27.4, MCHC 31.6 L, RDW 14.3, Plt Count 257, MPV 12.8 H, Neut % (Auto) 90.0 H, L ymph % (Auto) 5.9 L, [place] % (Auto) 2.9, Eos % (Auto) 0.0 L, Baso % (Auto) 0.3, N eut # (Auto) 22.0 H, Lymph # (Auto) 1.4, [place] # (Auto) 0.7, Eos # (Auto) 0.0, Baso # (Auto) 0.1, Total Counted 100, Neutrophils % (Manual) 93 H, Lymphocytes % (Manual) 7 L, Platelet Estimate Normal, RBC Morphology Normal, Lactate 2.5 H 08/28/25 17:21: Urine Color Yellow, Urine Appearance Clear, Urine pH 5.5, Ur Specific [place] 1.022, Urine Protein 2+ A, Urine Glucose (UA) Negative, Urine Ketones Negative, Urine Blood 2+ A, Urine Nitrate Negative, Urine Bilirubin Negative, Urine Urobilinogen 0.2, Ur Leukocyte Esterase Negative, Urine RBC 5- 10, Urine WBC 10-20, Ur Squamous Epith Cells 20-50, Urine Bacteria 3+, Hyaline Casts 3-5, Urine Mucus 1+ 08/28/25 17:20 08/28/25 15:05 Orders (Tests/Meds): ED MEDICATIONS Generic Name Dose Route Start Last Admin Trade Name Freq PRN Reason Stop Dose Admin Ceftriaxone Sodium 2 gm/ 100 mls @ 200 mls/hr 08/28/25 17:45 Sodium Chloride IV 09/07/25 17:44 Q24H OFE Sodium Chloride 8 ml 08/28/25 15:21 Sodium Chloride 0.9% 10ml Vial IV 09/27/25 15:20 NEEDED PRN dilute pepcid Discontinued Medications Generic Name Dose Route Start Last Admin Trade Name Maira PRN Reason Stop Dose Admin Famotidine 20 mg 08/28/25 15:21 08/28/25 15:52 Famotidine 20mg/2ml Vial IV 08/28/25 15:22 20 mg ONCE ONE Administration Sodium Chloride 1,000 mls @ 999 mls/hr 08/28/25 15:21 08/28/25 17:27 Sod Chlor 0.9% 1000ml Bag IV 08/28/25 16:21 Infused .Q1H1M ONE Infusion Magnesium Sulfate 2 gm in 50 mls @ 50 mls/hr 08/28/25 16:05 08/28/25 17:27 Magnesium Sulfate 2gm/50ml Premix IV 08/28/25 17:04 Infused ONCE ONE Infusion Magnesium Sulfate 2 gm in 50 mls @ 50 mls/hr 08/28/25 16:05 08/28/25 16:45 Magnesium Sulfate 2gm/50ml Premix IV 08/28/25 17:04 50 mls/hr ONCE ONE Administration Ondansetron HCl 4 mg 08/28/25 15:21 08/28/25 15:52 Ondansetron 4mg/2ml Vial IV 08/28/25 15:22 4 mg ONCE ONE Administration ORDERS Category Date Time Status CT abdomen pelvis w con Stat Cat Scan 08/28/25 17:[address] chest w con Stat Cat Scan 08/28/25 17:36 Ordered Chest XR -- portable [XR chest portable] Stat Exams 08/28/25 15:21 Completed BNP [NT Pro Brain Natriuretic Pep.] Stat Lab 08/28/25 18:48 Ordered CBC [Complete Blood Count Auto Diff] Stat Lab 08/28/25 17:20 Completed Comprehensive Metabolic Panel Stat Lab 08/28/25 15:05 Completed Creatine Kinase Stat Lab 08/28/25 18:48 Ordered Diarrhea 23 Panel, PCR Stat Lab 08/28/25 17:41 Ordered Lactic Acid Stat Lab 08/28/25 17:20 Completed Lipase Stat Lab 08/28/25 15:05 Completed Magnesium Stat Lab 08/28/25 15:05 Completed Rapid PCR Covid and Flu A/B Stat Lab 08/28/25 15:21 Completed Trop I [Troponin I] Stat Lab 08/28/25 15:05 Completed Troponin I Q3H Lab 08/28/25 18:30 Ordered Troponin I Q3H Lab 08/28/25 21:30 Ordered Urinalysis and Microscopic Stat Lab 08/28/25 17:21 Completed Urine Culture Stat Micro 08/28/25 17:21 Received Medical Decision Narrative: patient is a 69-year-old female presenting to the emergency department for evaluation of nausea, vomiting and diarrhea over the past 2 days.. Patient is hemodynamically stable and nontoxic-appearing upon arrival, afebrile. Differential diagnosis includes viral illness, among others. Workup will be conducted with hematologic labs, specific imaging, provocative tests. Initial inventions include crystalloid bolus, analgesics, antibiotics, etc.. Initial workup reviewed by me hematologic labs are remarkable for 24.4 white count, BUN and creatinine were elevated at 1.1 and 24. Patient's lactate was 2.5. Calcium was 10.8. Mag was less than 0.2. Which was replaced with 4 g of mag here in the ED. Urine showed 2+ protein, 2+ blood 20-50 squames with 10-20 white blood cells. I discussed this patient with Aisha on hospital medicine. She accepts patient in transfer to the floor. <Naomi Tsang, DO - Last Filed: 08/28/25 16:20> Vital Signs: 08/28/25 15:19 Temperature 97.5 F L Temperature Source Axillary Pulse Rate [Right] 63 Respiratory Rate 16 Blood Pressure [Right Arm] 178/78 H Blood Pressure Mean [Right Arm] 111 02 Sat by Pulse Oximetry 95 Oxygen Delivery Method Room Air Lab Data Lab Results 08/28/25 15:05: Sodium 145, Potassium 3.5, Chloride 102, Carbon Dioxide 25, A nion Gap 21.5 H, BUN 24 H, Creatinine 1.10 H, Estimated Creat Clear 48, E stimated GFR 49 L, Est GFR ( Amer) 59, Glucose 174 H, Calcium 10.8 H, M agnesium < 0.2 L, Total Bilirubin 1.1, AST 46 H, ALT 36, Alkaline Phosphatase 72, Troponin I 0.01, Total Protein 9.6 H D, Albumin 5.4 H, Globulin 4.2 H, Albumin/Globulin Ratio 1.3, Lipase 111 08/28/25 15:21: SARS-CoV-2 (PCR) Not detected, Influenza A Untype (PCR) Not detected, Influenza Type B (PCR) Not detected 08/28/25 17:20: WBC 24.4 H*, RBC 5.77 H, Hgb 15.8, Hct 50.0 H, MCV 86.7, MCH 27.4, MCHC 31.6 L, RDW 14.3, Plt Count 257, MPV 12.8 H, Neut % (Auto) 90.0 H, L ymph % (Auto) 5.9 L, [place] % (Auto) 2.9, Eos % (Auto) 0.0 L, Baso % (Auto) 0.3, N eut # (Auto) 22.0 H, Lymph # (Auto) 1.4, [place] # (Auto) 0.7, Eos # (Auto) 0.0, Baso # (Auto) 0.1, Total Counted 100, Neutrophils % (Manual) 93 H, Lymphocytes % (Manual) 7 L, Platelet Estimate Normal, RBC Morphology Normal, Lactate 2.5 H 08/28/25 17:21: Urine Color Yellow, Urine Appearance Clear, Urine pH 5.5, Ur Specific [place] 1.022, Urine Protein 2+ A, Urine Glucose (UA) Negative, Urine Ketones Negative, Urine Blood 2+ A, Urine Nitrate Negative, Urine Bilirubin Negative, Urine Urobilinogen 0.2, Ur Leukocyte Esterase Negative, Urine RBC 5- 10, Urine WBC 10-20, Ur Squamous Epith Cells 20-50, Urine Bacteria 3+, Hyaline Casts 3-5, Urine Mucus 1+ Orders (Tests/Meds): ED MEDICATIONS Generic Name Dose Route Start Last Admin Trade Name Freq PRN Reason Stop Dose Admin Ceftriaxone Sodium 2 gm/ 100 mls @ 200 mls/hr 08/28/25 17:45 Sodium Chloride IV 09/07/25 17:44 Q24H OFE Sodium Chloride 8 ml 08/28/25 15:21 Sodium Chloride 0.9% 10ml Vial IV 09/27/25 15:20 NEEDED PRN dilute pepcid Discontinued Medications Generic Name Dose Route Start Last Admin Trade Name Maira PRN Reason Stop Dose Admin Famotidine 20 mg 08/28/25 15:21 08/28/25 15:52 Famotidine 20mg/2ml Vial IV 08/28/25 15:22 20 mg ONCE ONE Administration Sodium Chloride 1,000 mls @ 999 mls/hr 08/28/25 15:21 08/28/25 17:27 Sod Chlor 0.9% 1000ml Bag IV 08/28/25 16:21 Infused .Q1H1M ONE Infusion Magnesium Sulfate 2 gm in 50 mls @ 50 mls/hr 08/28/25 16:05 08/28/25 17:27 Magnesium Sulfate 2gm/50ml Premix IV 08/28/25 17:04 Infused ONCE ONE Infusion Magnesium Sulfate 2 gm in 50 mls @ 50 mls/hr 08/28/25 16:05 08/28/25 16:45 Magnesium Sulfate 2gm/50ml Premix IV 08/28/25 17:04 50 mls/hr ONCE ONE Administration Ondansetron HCl 4 mg 08/28/25 15:21 08/28/25 15:52 Ondansetron 4mg/2ml Vial IV 08/28/25 15:22 4 mg ONCE ONE Administration ORDERS Category Date Time Status CT abdomen pelvis w con Stat Cat Scan 08/28/25 17:[address] chest w con Stat Cat Scan 08/28/25 17:36 Ordered Chest XR -- portable [XR chest portable] Stat Exams 08/28/25 15:21 Completed BNP [NT Pro Brain Natriuretic Pep.] Stat Lab 08/28/25 18:48 Ordered CBC [Complete Blood Count Auto Diff] Stat Lab 08/28/25 17:20 Completed Comprehensive Metabolic Panel Stat Lab 08/28/25 15:05 Completed Creatine Kinase Stat Lab 08/28/25 18:48 Ordered Diarrhea 23 Panel, PCR Stat Lab 08/28/25 17:41 Ordered Lactic Acid Stat Lab 08/28/25 17:20 Completed Lipase Stat Lab 08/28/25 15:05 Completed Magnesium Stat Lab 08/28/25 15:05 Completed Rapid PCR Covid and Flu A/B Stat Lab 08/28/25 15:21 Completed Trop I [Troponin I] Stat Lab 08/28/25 15:05 Completed Troponin I Q3H Lab 08/28/25 18:30 Ordered Troponin I Q3H Lab 08/28/25 21:30 Ordered Urinalysis and Microscopic Stat Lab 08/28/25 17:21 Completed Urine Culture Stat Micro 08/28/25 17:21 Received ECG Data Tracing #1: I reviewed this ECG and interpreted as documented below: EKG shows normal sinus rhythm at a rate of 67. Normal CA, QRS, and QTc intervals. Normal axis. No acute ST elevations or signs of acute subendocardial or transmural ischemia. Critical Care <Katherine Charlton (ED), DIRECTOR PAYER - Last Filed: 08/28/25 19:33> Critical Care Time Critical Care Time: No
--- OUTSIDE RECORDS SUMMARY | 2025-08-28 15:32 | XMS_ITS | Clinical Summary ---
Author Organization Healthcare Address [address] [place] [address] Care Team Providers Care Sales Performance Manager Name Role Phone Ronald Gr MD Primary Care Provider [phone] Allergies Active Allergy Reactions Criticality Noted Date Comments Acetaminophen Unknown - Patient st ates they do not know rxn details Low 05/30/2022 [place] Cough Low 06/29/2023 Codeine Itching Medium 08/27/2016 [...] colitis 07/05/2022 Atherosclerotic heart diseas e of samish coronary artery without angina pectoris 06/03/2022 Chronic kidney disease, stage 3 unspecified 05/19 Chronic obstructive pulmonary disease, unspecifi ed 06/03/2022 Essential (primary) hypertension 06/03/2022 Hypocalcemia 06/03/2022 Hypokalemia 06/03/2022 Hypomagnesemia 06/03/2022 Portal hypertension 12/16/2021 Emphysema (subcutaneous) (lin rgical) resulting from a procedure 12/16/2021 Upper GI bleed 12/16/2021 Takotsubo cardiomyopathy Chronic prescription opiate use Paroxysmal atrial fibrillation Chronic anticoagulation Resolved Problems Problem Noted Date Diagnosed Date Resolved Date Unspecified abdominal pain 06/03/2022 0 07/09/2025 Shock 05/29/2022 06/09/2022 NSTEMI (non-ST elevated myoc ardial infarction) 05/29/2022 06/09/2022 Overview (05/30/2022): Added automatically from request for surgery [id number] COVID-19 07/15/2021 07/09/2025 Immunizations Immunization Administration Dates Next Due Hep [...] Scan 1954 [facility]-Medicare Annual Wellness (AWV) 1954 [facility]-Infant/Child/Adol SDOH Screenings 1954 [facility]- SDOH Screenings 1972 [facility]-Adult SDOH Screenings 1972 [facility]-DTaP,Tdap,and Td Vaccines (1 - Tdap) 1973 CT Colonography 1999 FIT-DNA 1999 FIT 1999 FOBT 1999 Sigmoidoscopy 1999 [facility]-Breast Cancer Screening 2004 [facility]-Zoster Vaccines (1 of 2) 2004 [facility]-Depression Screening 01/18/2025 01/19/2024, 06/19 [id number] Vaccine ( - 2024- season) 2025 10/07/2022, 10/24/2021, 01/30/2021, Additional history exists [facility]-Influenza Vaccine (#1) 06/19/202507/28, 10/07/2022, 10/05/2018, Additional history exists [facility]-RSV Vaccine: [...] MD fellow Liz Fitch RN nurse [place], medical record technician Preprocedure A history and physical has [...] of bowel preparation was evaluated using the [place] Bowel Preparation Scale with scores of: right [...] within the limitations of the bowel prep us Akhil Shultz MD GI PROCEDURE ORDERABLES Final R esult * (ABNORMAL) Acute Hepatitis Panel (05/30/2022 6:32 AM EDT) Hepatitis B Surf Antigen Negative Negative 05/30/2022 10:59 AM EDT [facility] Hepatitis C Antibody Positive(A) Negative 05/30/2022 10:59 AM EDT [facility] Comment: This specimen is being sent for confirmation by RT-PCR. This specimen is being sent for confirmation by RT-PCR. Hepatitis A Antibody IgM Negative Negative 05/30/2022 10:59 AM EDT [facility] Hepatitis B Core Antibody IgM Negative Negative 05/30/2022 10:59 AM EDT [facility] Blood Arterial blood specimen / Unknown Venipuncture / Unknown 05/30/2022 6:32 AM EDT 05/30/2022 6:42 AM EDT us Gomez Louis MD LAB BLOOD ORDERABLES Final Resul t [facility] [address] [place] [address] from Last 3 Months or Most Recently Relevant to Health Maintenance Insurance [facility] MEDICARE Advance Directives * Full Code (Latest Code Status on File) Date Activated Date Inactivated Comments 05/29/2022 10:24 PM 06/09/2022 7:33 PM Question Answer Comments Patient has decision-making capacity? Yes Care Teams Sales Performance Manager Relationship Specialty Start Date End Date Ronald Gr MD [address] [place] [address] PCP - General 03/01/21
--- OUTSIDE RECORDS SUMMARY | 2025-08-28 15:32 | XMS_ITS | Encounter Summary ---
Author Organization Healthcare Address [address] [place] [address] Care Team Providers Care Sr. Consultant Name Role Phone Ronald Gr MD Primary Care Provider [phone] Aniyah Duke LPN Unavailable Unavailab le Encounter Details Date Type Department Care Team ([facility] st Contact Info) Description 05/27/2022 Orders Only External Location [address] [place] [address] Ronald Gr MD [address] [id number] Social History Tobacco Use Types Packs/Day Years [...] documented as of this encounter Care Teams Sr. Consultant Relationship Specialty Start Date End Date Ronald Gr MD [address] [place] [address] PCP - General 03/01/21 Aniyah Duke LPN [employer] [place] [address] TCM Nurse 06/10/22 07/10/22 documented as of this encounter
--- OUTSIDE RECORDS SUMMARY | 2025-08-28 15:32 | XMS_ITS | Encounter Summary ---
Author Organization Healthcare Address [address] [place] [address] Care Team Providers Care Product Handler Name Role Phone Ronald Gr MD Primary Care Provider [phone] Encounter Details Date Type Department Care Team (Late st Contact Info) Description 11/06/2023 Orders Only External Location [address] [place] [address] Provider, External Social History Tobacco Use Types [...] documented as of this encounter Care Teams Product Handler Relationship Specialty Start Date End Date Ronald Gr MD [address] [place] [address] PCP - General 03/01/21 documented as of this encounter
--- OUTSIDE RECORDS SUMMARY | 2025-08-28 15:32 | XMS_ITS | Encounter Summary ---
Author Organization Healthcare Address [address] [place] [address] Care Team Providers Care Polisher Implant Name Role Phone Ronald Gr MD Primary Care Provider [phone] Aniyah Duke LPN Unavailable Unavailab le Encounter Details Date Type Department Care Team ([facility] st Contact Info) Description 05/29/2022 Orders Only External Location [address] [place] [address] Ronald Gr MD [address] [phone] Social History Tobacco Use Types Packs/Day Years [...] documented as of this encounter Care Teams Polisher Implant Relationship Specialty Start Date End Date Ronald Gr MD [address] [place] [address] PCP - General 03/01/21 Aniyah Duke LPN [employer] [place] [address] TCM Nurse 06/10/22 07/10/22 documented as of this encounter
--- OUTSIDE RECORDS SUMMARY | 2025-08-28 15:32 | XMS_ITS | Encounter Summary ---
Author Organization Healthcare Address [address] [place] [address] Care Team Providers Care Financial Reporting Analyst Name Role Phone Ronald Gr MD Primary Care Provider [phone] Aniyah Duke LPN Unavailable Unavailab le Encounter Details Date Type Department Care Team (Late st Contact Info) Description 06/02/2022 Lab Requisition [facility] [address] [place] [address] Ruth Ann Girard MD [address] [place], [place] [id number] Encounter for general adult medical examination without [...] ORDERABLES Final Result [facility] [address] [place] [address] documented in this encounter Visit Diagnoses Diagnosis Encounter for general adult medical examination without abnormal findings documented in this encounter Additional Health Concerns Infection Onset Date Last Indicated Resolved Time C. difficile Rule-Out 06/06/2022 06/06/20222021 7:20 PM EDT Assessment Noted Time A fall risk assessment has been complete d for the patient 12/16/2021 3:35 PM EST documented as of this encounter Care Teams Financial Reporting Analyst Relationship Specialty Start Date End Date Ronald Gr MD [address] [place] [address] PCP - General 03/01/21 Aniyah Duke LPN [employer] [place] [address] TCM Nurse 06/10/22 07/10/22 documented as of this encounter
--- OUTSIDE RECORDS SUMMARY | 2025-08-28 15:32 | XMS_ITS | Encounter Summary ---
Author Organization Healthcare Address [address] [place] [address] Care Team Providers Care Artificial Fly Tier Name Role Phone Ronald Gr MD Primary Care Provider [phone] Aniyah Duke LPN Unavailable Unavailab le Encounter Details Date Type Department Care Team (Late st Contact Info) Description 05/29/2022 Orders Only External Location [address] [place] [address] Cayla Faye, DIRECTOR CLIENT [address] [facility] [address] [facility] [address] [place] [address] Social History Tobacco Use Types Packs/Day Years [...] 12:5 3 PM EDT us Cayla Faye DIRECTOR CLIENT IMG US PROCEDURES Luanne l Result documented in this encounter Visit Diagnoses Not on filedocumented in this encounter Additional Health Concerns Infection Onset Date Last Indicated Resolved Time C. difficile Rule-Out 06/06/2022 06/06/20222021 7:20 PM EDT Assessment Noted Time A fall risk assessment has been complete d for the patient 12/16/2021 3:35 PM EST documented as of this encounter Care Teams Artificial Fly Tier Relationship Specialty Start Date End Date Ronald Gr MD [address] [place] [address] PCP - General 03/01/21 Aniyah Duke LPN [employer] [place] [address] TCM Nurse 06/10/22 07/10/22 documented as of this encounter
--- OUTSIDE RECORDS SUMMARY | 2025-08-28 15:32 | XMS_ITS | Encounter Summary ---
Author Organization Healthcare Address [address] [place] [address] Care Team Providers Care Urgent Care Technician Name Role Phone Ronald Gr MD Primary Care Provider [phone] Aniyah Duke LPN Unavailable Unavailab le Encounter Details Date Type Department Care Team ([facility] st Contact Info) Description 05/29/2022 Orders Only External Location [address] [place] [address] Neto Woodson, CLAIMS PROCESSOR [address] [phone] Social History Tobacco Use Types Packs/Day Years [...] documented as of this encounter Care Teams Urgent Care Technician Relationship Specialty Start Date End Date Ronald Gr MD [address] [place] [address] PCP - General 03/01/21 Aniyah Duke LPN [employer] [place] [address] TCM Nurse 06/10/22 07/10/22 documented as of this encounter
[2025-08-28] MEDS: 0.9 % SODIUM CHLORIDE 1000ML 1,000 ML 999 ML IV (15:52)
[2025-08-28] MEDS: ONDANSETRON 4MG/2ML VIAL 4 MG IV (15:52)
[2025-08-28] MEDS: FAMOTIDINE 20MG/2ML VIAL 20 MG IV (15:52)
[2025-08-28 15:54] LABS: Alanine Aminotransferase 36 U/L (12-78); Albumin Level 5.4 g/dl (3.5-5.0); Albumin/Globulin Ratio 1.3 (1.1-1.8); Alkaline Phosphatase 72 U/L (38-126); Anion Gap 21.5 mEq/L (5-15); Aspartate Amino Transferase 46 U/L (14-36); Bilirubin,Total 1.1 mg/dl (0.2-1.3); Blood Urea Nitrogen 24 mg/dl (7-17); Calcium 10.8 mg/dl (8.4-10.2); Carbon Dioxide 25 mmol/L (22.0-30.0); Chloride 102 mmol/L (98-107); Creatinine Clearance Estimated 48 mL/min (50-200); Creatinine,Serum 1.10 mg/dl (0.52-1.04); Estimated Glomerular Filt Rate 49 ml/min (>60); GFR (African American) 59 ML/MIN (>60); Globulin 4.2 g/dL (1.3-3.2); Glucose 174 mg/dl (74-100); Lipase 111 U/L (23-300); Potassium 3.5 mmoL/L (3.5-5.1); Sodium 145 mmol/L (136-145); Total Protein,Serum 9.6 g/dl (6.3-8.2)
[2025-08-28 15:57] LABS: Magnesium < 0.2 mg/dl (1.6-2.3)
--- NOTE | 2025-08-28 16:04 | ECG_ITS ---
APPROVED REPORT Exam: Resting ECG HR:67 bpm ECG Measurements Heart Rate 67 AXES GA 139 P 70 QRSd 104 QRS 16 QT 402 T 46 QTc 417 Conclusion SINUS RHYTHM MODERATE ST DEPRESSION [0.05+ mV ST DEPRESSION] ABNORMAL ECG UNCONFIRMED REPORT Electronically signed by : ERIN TRINIDAD, 08/29/2025 05:22:46
[2025-08-28 16:05] LABS: Troponin I 0.01 ng/ml (0.00-0.034)
[2025-08-28] MEDS: MAGNESIUM SULFATE IN WATER 2 GM/50 ML PIGGYBACK IV ×2 (16:07→16:45)
[2025-08-28 16:30] LABS: Coronavirus 19, PCR Not Detected (NotDetected); Influenza A, PCR Not Detected (NotDetected); Influenza B, PCR Not Detected (NotDetected)
[2025-08-28 17:32] LABS: Microscopic, Urine URINE MICROSCOPIC (MICROSCOPIC)
[2025-08-28 17:33] LABS: Hematocrit 50.0 % (37.0-47.0); Hemoglobin 15.8 g/dL (12.2-16.2); Immature Granulocytes % 0.9 %; Mean Corpuscular HGB Conc 31.6 g/dL (31.8-35.4); Mean Corpuscular Hemoglobin 27.4 pg (27.0-31.2); Mean Corpuscular Volume 86.7 fl (81-99); Nucleated Red Blood Cells % 0 %; Platelet Count 257 K/mm3 (142-424); Red Blood Count 5.77 M/mm3 (4.20-5.40); Red Cell Distribution Width-SD 45.1 fL; White Blood Count 24.4 K/mm3 (4.8-10.8)
--- NOTE | 2025-08-28 17:36 | CT_ITS ---
PROCEDURE INFORMATION: Exam: CT Abdomen And Pelvis Without Contrast Exam date and time: 08/28/2025 7:37 PM Age: 69 years old Clinical indication: Other: Septic; Additional info: Sepsis TECHNIQUE: Imaging protocol: Computed tomography of the abdomen and pelvis without contrast. Radiation optimization: All CT scans at this facility use at least one of these dose optimization techniques: automated exposure control; mA and/or kV adjustment per patient size (includes targeted exams where dose is matched to clinical indication); or iterative reconstruction. COMPARISON: CT ABDOMEN PELVIS W CON 04/01/2025 7:27 PM FINDINGS: Liver: Normal. No mass. Gallbladder and biliary ducts: Normal. No calcified stones. No ductal dilation. Pancreas: Normal. No ductal dilation. Spleen: Normal. No splenomegaly. Adrenal glands: Nonspecific haziness of the fat around the adrenal glands. Kidneys and ureters: Low attenuation renal lesions measuring up to 2.3 cm in diameter are incompletely characterized, but are likely cysts. No followup imaging is warranted. Stomach and bowel: Bowel wall thickening of most of the small bowel and colon. Small lipomas in the right colon. Mild colonic diverticulosis without diverticulitis. Gastric wall thickening. Appendix: Unremarkable appendix. Intraperitoneal space: Unremarkable. No free air. No significant fluid collection. Vasculature: Unremarkable. No abdominal aortic aneurysm. Lymph nodes: Unremarkable. No enlarged lymph nodes. Urinary bladder: Unremarkable as visualized. Reproductive: Uterine fibroids. Bones/joints: The lumbar spine demonstrates mild degenerative changes at multiple levels. Soft tissues: Unremarkable. Other findings: Please see separate report for CT chest. Stigmata of old granulomatous disease. IMPRESSION: 1. Bowel wall thickening of most of the small bowel and colon. Please correlate for evidence of enterocolitis. 2. Nonspecific haziness of the fat around the adrenal glands. This is either new or worse compared to prior study. Please exclude infection/inflammation. Consider adrenal gland function tests. 3. Gastric wall thickening. Please exclude gastritis. COMMENTS: Consistent with the [employer]'s Incidental Findings Committee white paper (J Am Fabrizio Radiol 2018): Any incidental renal lesion less than 1 cm or classified as too small to characterize, or any incidental cystic renal lesion characterized as simple-appearing, is likely benign. No follow-up imaging is recommended for these lesions per consensus recommendations based on imaging criteria.
--- NOTE | 2025-08-28 17:36 | CT_ITS ---
PROCEDURE INFORMATION: Exam: CT Chest Without Contrast; Diagnostic Exam date and time: 08/28/2025 7:35 PM Age: 69 years old Clinical indication: Other: Septic TECHNIQUE: Imaging protocol: Diagnostic computed tomography of the chest without contrast. Radiation optimization: All CT scans at this facility use at least one of these dose optimization techniques: automated exposure control; mA and/or kV adjustment per patient size (includes targeted exams where dose is matched to clinical indication); or iterative reconstruction. COMPARISON: CT LUNG SCREENING 04/26/2024 2:57 PM FINDINGS: Tubes, catheters and devices: A pacemaker device is present, and its leads are in appropriate position. Lungs: Left upper lobe cyst. Mild scarring and atelectasis in the lower lungs. Pleural spaces: Unremarkable. No pneumothorax. No pleural effusion. Heart: Cardiomegaly. Coronary arteries: Coronary artery calcifications. Lymph nodes: Unremarkable. No enlarged lymph nodes. Vasculature: The aorta demonstrates severe atherosclerotic disease. Bones/joints: T11 and T12 superior endplate fractures are new compared to prior study and age indeterminate, possibly acute. Soft tissues: Unremarkable. Other findings: Please see separate report for abdomen/pelvis. Stigmata of old granulomatous disease. IMPRESSION: 1. No intrathoracic source for infection. 2. T11 and T12 superior endplate fractures are new compared to prior study and age indeterminate, possibly acute. Please correlate with point tenderness.
[2025-08-28 17:41] LABS: Color,Urine YELLOW (Yellow); Glucose,Urine (UA) Negative (Negative); Ketones,Urine Negative (Negative); Leukocyte Esterase,Urine Negative (Negative); PH,Urine 5.5 (5.0-8.5); Protein,Urine 2+ (Negative); Urobilinogen,Urine 0.2 EU/dl (0.2)
[2025-08-28 17:43] LABS: Specific Gravity, Urine 1.022 (1.005-1.030)
[2025-08-28 17:44] LABS: Bilirubin,Urine Negative (Negative)
[2025-08-28 18:08] LABS: Bacteria,Urine 3+ /lpf; Mucus,Urine 1+ /lpf; Squamous Epithelial Cell,Urine 20-50 #/hpf (0-5)
[2025-08-28 18:41] LABS: RBC Morphology Normal; Total Cells Counted 100
--- NOTE | 2025-08-28 18:51 | PC.NURSE ---
pattern developer contacted hospitalist but they will return call
[2025-08-28 19:56] LABS: Creatine Kinase 75 U/L (30-135)
[2025-08-28 20:06] LABS: NT Pro Brain Natriuretic Pep. 1170 pg/mL (0-125)
[2025-08-28 20:09] LABS: Troponin I 0.03 ng/ml (0.00-0.034)
--- NOTE | 2025-08-28 20:17 | PC.NURSE ---
Report given to Angy HAIDER on [facility]
[2025-08-28 21:30] LABS: Reflex Lactic Add Lactic Reflex
[2025-08-28] MEDS: LACTATED RINGERS 1000ML 1,000 ML 100 ML IV (22:11)
[2025-08-28 22:13] LABS: Lactic Acid Follow Up (RFLX 1) 1.5 mmol/L (0.7-2.1)
[2025-08-28] MEDS: OXYCODONE 10MG EXTENDED RELEASE TAB.ER.12H 10 MG PO (22:14)
[2025-08-28 22:25] LABS: Troponin I 0.04 ng/ml (0.00-0.034)
--- NOTE | 2025-08-28 23:30 | ECG_ITS ---
APPROVED REPORT Exam: Resting ECG HR:60 bpm ECG Measurements Heart Rate 60 AXES DC 162 P 153 QRSd 100 QRS 38 QT 435 T 44 QTc 435 Conclusion ELECTRONIC ATRIAL PACEMAKER ABNORMAL RHYTHM ECG UNCONFIRMED REPORT Electronically signed by : Rafy Weston MD 08/29/2025 08:33:34
[2025-08-29] VITALS (8 sets, daily range): BP systolic 124–162; BP diastolic 47–61; PULSE 50–70; RESP 15–18; TEMP 36.3–36.9; O2SAT 94–98; BMI 21.5
--- NOTE | 2025-08-29 00:04 | P.HP_ITS ---
<Statement entered by Hemant Wolfe MD - 08/29/25 15:03> Rounded on patient after nurse practitioner. Personally examined and interviewed patient. Agree with exam findings and care plan as documented. History of Present Illness *Admission Date: 08/28/25 *Reason for visit:: Nausea vomiting and diarrhea *History of present illness: 69-year-old female patient was brought to the ER after being down for 2 days. Information mostly obtained from medical records and ER record as she is a poor historian. She apparently had been in bed for almost 2 days with intractable nausea vomiting and diarrhea. Complains of mild abdominal pain that is generalized. She denied fever chills or bodyaches. She vomited 3 times in the ambulance on the way in. In the ER she received IV fluids, Rocephin, Pepcid and magnesium as well as Zofran. During my visit she states she is feeling better and is able to rest. [facility] Disclaimer: The information contained in this section may have been updated after the patient was seen, as this information can be updated by other users. Medical History (Updated 08/29/25 @ 00:42 by Aisha Reyez APRN) Wound of right upper extremity Tremor Memory changes Dizziness Skin lesions Sepsis without septic shock Enteritis Urinary tract infection Ground glass opacity present on imaging of lung Hyperkalemia Hyperkalemia Hypomagnesemia Acute kidney injury (nontraumatic) At risk for osteoporosis Anemia Healthcare maintenance Tobacco abuse counseling Left knee pain Neck pain Trouble swallowing Abnormal thyroid ultrasound Abnormal thyroid blood test Rash Abnormal hemoglobin Hypotension Abnormal CT of the abdomen Acute hemorrhoid Anxiety Pacemaker Black stools Sepsis Left foot pain Acquired hammer toes of both feet Acquired hallux valgus of left foot Incurved toenail Neuropathy Callus of foot Primary osteoarthritis of both feet Fatigue Near syncope Symptomatic bradycardia Bradycardia Abdominal pain Ischemic colitis CHF (congestive heart failure) Non-STEMI (non-ST elevated myocardial infarction) Atrial fibrillation with rapid ventricular response Acute renal failure Dehydration Sepsis CKD (chronic kidney disease) Diarrhea Dehydration DONNIE (acute kidney injury) COVID-19 Sinus bradycardia Viral cardiomyopathy Elevated white blood cell count, unspecified Renal insufficiency Takotsubo cardiomyopathy Elevated left ventricular end-diastolic pressure (LVEDP) Gastroenteritis ST elevation [place] (STEMI) ADIEL (obstructive sleep apnea) TIA (transient ischemic attack) Facial droop Atypical angina HTN (hypertension) Edema Tobacco dependence syndrome Abnormal EKG COPD (chronic obstructive pulmonary disease) Chest pain Overweight (BMI 25.0-29.9) Trapezius muscle strain Pre-ulcerative calluses Lumbar disc disease with radiculopathy Lumbar foraminal stenosis Lumbar spondylosis Back Pain Dizziness Angina pectoris History of CVA (cerebrovascular accident) Solitary lung nodule Palpitations Dyspnea Tobacco user HLD (hyperlipidemia) HHD (hypertensive heart disease) Mitral valve regurgitation CAD (coronary artery disease) Surgical History Presence of cardiac pacemaker Family History Other No significant family history Social History (Updated 08/29/25 @ 00:10 by Aisha Reyez APRN) Smoking Status: Current every day smoker tobacco type: cigarettes packs per day: 1 pack-years: 30 smoking status start date: 1989 years smoked: 35 second hand exposure: Yes alcohol intake: never substance use type: prescription drug current occupational status: disabled Travel in the last 8 weeks?: None household members: family housing: house current occupational exposures/hazards: No caffeine: Yes Have you lived/traveled outside US in past 30 days?: No Contact w/someone who lives/traveled outside US past 30 days?: No Exposure to someone with infectious disease in past 14 days?: No Do you have a fever (greater than 100.4 F or 38 C)?: No Have you tested positive for COVID-19?: No Exposed to someone with COVID-19 in past 14 days?: No Do you have a sore throat?: No Do you have a cough?: No Do you have any weakness?: No Do you have any diarrhea?: No Are you experiencing any unusual bleeding?: No Do you have any muscle aches/pain?: No Do you have any abdominal pain?: No Are you experiencing loss of taste or smell?: No Other Medical History Have you received the Flu Vaccine for this season: Yes Have you received the Pneumonia Vaccine: No Review of Systems Constitutional Constitutional: Denies body ache(s), Denies chills and Denies fever(s) Eyes Eyes: Reports system reviewed and no additional complaints, except as documented ENT Ears, Nose, Mouth, and Throat: Reports system reviewed and no additional complaints, except as documented *Cardiovascular Cardiovascular: Denies chest pain and Denies dyspnea *Respiratory Respiratory: Denies cough and Denies dyspnea *Gastrointestinal Gastrointestinal: Reports abdominal pain (Mild generalized abdominal pain), Reports diarrhea, Reports nausea and Reports vomiting *Genitourinary Genitourinary: Denies difficulty voiding and Denies dysuria *Musculoskeletal Musculoskeletal: Reports system reviewed and no additional complaints, except as documented *Neurologic Neurologic: Reports system reviewed and no additional complaints, except as documented Meds Home Medications and Allergies Home Medications ?Medication ?Instructions ?Recorded ?Confirmed ?Type albuterol sulfate 90 mcg/actuation 2 puff inhalation Q 6HP PRN 11/04/24 08/04/25 History aerosol inhaler Shortness Of Breath loratadine 10 mg tablet See Rx Instructions .Route 0 05/30/25 08/28/25 Rx .COMPLEX #90 tabs loperamide 2 mg capsule 2 mg PO Q6H PRN Diarrhea 08/28/25 History ondansetron 4 mg disintegrating 4 mg PO Q12H PRN Nause a And 06/15/25 08/28/25 History tablet Vomiting atorvastatin 20 mg tablet See Rx Instructions .Route 1 08/04/25 Rx .COMPLEX #90 tabs cariprazine 1.5 mg capsule See Rx Instructions .Route 07/31/25 08/28/25 Rx (Vraylar) .COMPLEX #90 caps furosemide 40 mg tablet See Rx Instructions .Route 1 08/28/25 Rx .COMPLEX #90 tabs gabapentin 400 mg capsule 400 mg PO TID 30 days #90 ca ps 08/04/25 08/28/25 Rx alendronate 10 mg tablet See Rx Instructions .Route 1 08/28/25 Rx .COMPLEX #90 tabs amoxicillin 500 mg-potassium 1 tab PO BID #14 tabs Rx clavulanate 125 mg tablet escitalopram oxalate 20 mg tablet See Rx Instructions .Route 08/10/25 08/28/25 Rx .COMPLEX #90 tabs pantoprazole 40 mg tablet,delayed 40 mg PO HS 30 days #30 tabs 08/10/25 08/28/25 Rx release oxycodone 10 mg tablet 10 mg PO TIDP PRN Moderate P ain 08/15/25 08/28/25 Rx (Scale Score 5-6) #90 tabs apixaban 5 mg tablet (Eliquis) See Rx Instructions .Ro nikolai 08/28/25 08/28/25 Rx .COMPLEX #60 tabs cariprazine 1.5 mg capsule 1.5 mg PO DAILY 08/28/25 History (Vraylar) New Prescriptions to Start Prescriptions: Allergies Allergy/AdvReac Type Severity Reaction Status Date / Time acetaminophen (From Allergy Unknown Unknown Verified 08/04/25 13:52 DARVOCET-N) allergy reaction codeine (CODEINE) Allergy Unknown Unknown Verified 08/04/25 13:52 allergy reaction propoxyphene (From Allergy Unknown Unknown Verified 08/04/25 13:52 DARVOCET-N) allergy reaction tomato AdvReac Mild Gastrointestinal Verified 08/04/25 13:52 Upset Exam Data for Last 24 hours Vital signs and Labs for Last 24 Hours: Temp Pulse Resp BP Pulse Ox O2 Del Method 98.1 F 105 H 16 105/84 L 98 Room Air 08/28/25 21:42 08/28/25 21:42 08/28/25 21:42 08/28/25 21:42 08/28/25 21:42 08/28/25 23:00 Laboratory Results - last 24 hr 08/28/25 15:05: Sodium 145, Potassium 3.5, Chloride 102, Carbon Dioxide 25, Anion Gap 21.5 H, BUN 24 H, Creatinine 1.10 H, Estimated Creat Clear 48, Estimat ed GFR 49 L, Est GFR ( Amer) 59, Glucose 174 H, Calcium 10.8 H, Magnesium < 0.2 L, Total Bilirubin 1.1, AST 46 H, ALT 36, Alkaline Phosphatase 72, Troponin I 0.01, Total Protein 9.6 H D, Albumin 5.4 H, Globulin 4.2 H, Alb umin/Globulin Ratio 1.3, Lipase 111 08/28/25 15:21: SARS-CoV-2 (PCR) Not detected, Influenza A Untype (PCR) Not detected, Influenza Type B (PCR) Not detected 08/28/25 17:20: WBC 24.4 H*, RBC 5.77 H, Hgb 15.8, Hct 50.0 H, MCV 86.7, MCH 27.4, MCHC 31.6 L, RDW 14.3, Plt Count 257, MPV 12.8 H, Neut % (Auto) 90.0 H, Lymph % (Auto) 5.9 L, [place] % (Auto) 2.9, Eos % (Auto) 0.0 L, Baso % (Auto) 0.3, Neut # (Auto) 22.0 H, Lymph # (Auto) 1.4, [place] # (Auto) 0.7, Eos # (Auto) 0.0, Baso # (Auto) 0.1, Total Counted 100, Neutrophils % (Manual) 93 H, Lymphocytes % (Manual) 7 L, Platelet Estimate Normal, RBC Morphology Normal, Lactate 2.5 H 08/28/25 17:21: Urine Color Yellow, Urine Appearance Clear, Urine pH 5.5, Ur Specific [place] 1.022, Urine Protein 2+ A, Urine Glucose (UA) Negative, Urine Ketones Negative, Urine Blood 2+ A, Urine Nitrate Negative, Urine Bilirubin Negative, Urine Urobilinogen 0.2, Ur Leukocyte Esterase Negative, Urine RBC 5- 10, Urine WBC 10-20, Ur Squamous Epith Cells 20-50, Urine Bacteria 3+, Hyaline Casts 3-5, Urine Mucus 1+ 08/28/25 19:31: Total Creatine Kinase 75, Troponin I 0.03, NT-Pro-B Natriuret Pep 1170 H 08/28/25 21:57: Lactate 1.5, Troponin I 0.04 H I & O for Last 24 hours: Intake & Output 08/26/25 08/27/25 08/28/25 08/29/25 23:59 23:59 23:59 23:59 Intake Total 1200 / 1200 Balance 1200 / 1200 Weight 78.2 kg Constitutional Constitutional: no acute distress and disheveled *Routine HEENT Exam Head: Present normocephalic and atraumatic Eye: Present PERRL ENT: Present mucous membranes dry *Routine Neck Exam Neck: Present supple *Routine Respiratory Exam Respiratory: Present CTA bilaterally *Routine Cardiovascular Exam Cardiovascular: Present RRR, Normal S1 and Normal S2 *Routine Abdominal Exam Abdominal: Present soft, normoactive bowel sounds and tenderness *Routine Rectal Exam Rectal:: deferred *Routine Genitalia Exam Genitalia:: deferred *Routine Extremities Exam Extremities: Present pulses intact; Absent edema *Routine Skin Exam Skin: Present intact, dry and warm *Routine Neurological Exam Neurological: Present alert, oriented X3 and moving all extremities H&P: Result Imaging and Cardiology CT scan - abdomen: Additional comments: Bowel wall thickening of most of the small bowel and colon. Nonspecific haziness of the fat around the adrenal glands. Gastric wall thickening. Assessment and Plan *Assessment and plan (1) Enterocolitis: Status: Acute Category: Medical Code(s): K52.9 - Noninfective gastroenteritis and colitis, unspecified (2) NSTEMI (non-ST elevated myocardial infarction): Status: Acute Category: Medical Code(s): I21.4 - Non-ST elevation (NSTEMI) myocardial infarction (3) Elevated brain natriuretic peptide (BNP) level: Problem Comment: Has history of congestive heart failure. Appears to be stable at this time Status: Acute Category: Medical Code(s): R79.89 - Other specified abnormal findings of blood chemistry (4) Hypomagnesemia: Status: Acute Category: Medical Code(s): E83.42 - Hypomagnesemia (5) Chronic kidney disease, stage 3: Status: Acute Qualifiers: Chronic kidney disease stage 3 subtype: stage 3b (GFR 30-44) Qualified Code(s): N18.32 - Chronic kidney disease, stage 3b Category: Medical Code(s): N18.30 - Chronic kidney disease, stage 3 unspecified (6) HTN (hypertension): Status: Acute Qualifiers: Hypertension type: primary hypertension Qualified Code(s): I10 - Essential (primary) hypertension Category: Medical Code(s): I10 - Essential (primary) hypertension (7) HLD (hyperlipidemia): Status: Acute Qualifiers: Hyperlipidemia type: mixed hyperlipidemia Qualified Code(s): E78.2 - Mixed hyperlipidemia Category: Medical Code(s): E78.5 - Hyperlipidemia, unspecified Plan Patient has been admitted for enterocolitis. Received IV fluids in the ER as well as Rocephin. Will continue IV antibiotics, adding flagyl, and IV fluids for hydration. She does have a mild DONNIE on her chronic kidney disease stage III. Initial EKG did show some ST depression troponin initially negative was 0.04 at the third check. Repeat EKG shows resolution of ST depression suspect this is a type II NSTEMI. Will consult cardiology. Received magnesium replacement in the ER. And electrolyte replacement was ordered. Will repeat labs in the morning. Initial lactate was 2.5 improved to 1.5. BNP is elevated she does have history of congestive heart failure EF was 55% on last echocardiogram. She does not appear to be acutely decompensated. Records show she has history of atrial Fib and is on Eliquis, she states this is why she had a pacemaker placed.
[2025-08-29] MEDS: METRONIDAZ/SOD CHL 500 MG/100 ML PIGGYBACK 100 MG IV ×2 (00:50→14:12)
[2025-08-29 01:13] LABS: Magnesium 1.8 mg/dl (1.6-2.3)
[2025-08-29 01:26] LABS: Troponin I 0.04 ng/ml (0.00-0.034)
--- NOTE | 2025-08-29 02:10 | PC.NURSE ---
Addendum entered by Selin Ibarra RN 08/29/25 06:18: pt changed mind about pt password Original Note: New admit this shift. Pt AOx4. Reported pain in back rating 8 on the numeric pain scale. Pt received scheduled pain meds per DEC, which allowed the pt to rest. Tolerating room air. Pt requested RN contact her brother to let him know she was admitted and that he had access to her medication list. Most medications were able to be confirmed over the phone with the patient's brother. Pt password set to Yusra. Chio in place, pt wearing brief. Pt is currently resting in bed with eyes closed. Respirations even and unlabored. Paced on tele. Bed is low, locked, and call light is in reach. Bed alarm on and functioning.
[2025-08-29 06:54] LABS: Hematocrit 42.8 % (37.0-47.0); Immature Granulocytes % 0.4 %; Mean Corpuscular HGB Conc 31.3 g/dL (31.8-35.4); Mean Corpuscular Hemoglobin 26.9 pg (27.0-31.2); Mean Corpuscular Volume 85.8 fl (81-99); Nucleated Red Blood Cells % 0 %; Platelet Count 191 K/mm3 (142-424); Red Blood Count 4.99 M/mm3 (4.20-5.40); Red Cell Distribution Width-SD 43.7 fL; White Blood Count 12.2 K/mm3 (4.8-10.8)
[2025-08-29 07:05] LABS: Troponin I 0.03 ng/ml (0.00-0.034)
[2025-08-29 07:19] LABS: Alanine Aminotransferase 15 U/L (12-78); Albumin Level 4.2 g/dl (3.5-5.0); Albumin/Globulin Ratio 1.5 (1.1-1.8); Alkaline Phosphatase 77 U/L (38-126); Anion Gap 13.8 mEq/L (5-15); Aspartate Amino Transferase 27 U/L (14-36); Bilirubin,Total 0.6 mg/dl (0.2-1.3); Blood Urea Nitrogen 32 mg/dl (7-17); Calcium 9.3 mg/dl (8.4-10.2); Carbon Dioxide 26 mmol/L (22.0-30.0); Chloride 105 mmol/L (98-107); Creatinine Clearance Estimated 37 mL/min (50-200); Creatinine,Serum 1.20 mg/dl (0.52-1.04); Estimated Glomerular Filt Rate 44 ml/min (>60); GFR (African American) 54 ML/MIN (>60); Globulin 2.8 g/dL (1.3-3.2); Glucose 132 mg/dl (74-100); Magnesium 1.5 mg/dl (1.6-2.3); Potassium 3.8 mmoL/L (3.5-5.1); Sodium 141 mmol/L (136-145); Total Protein,Serum 7.0 g/dl (6.3-8.2)
[2025-08-29 07:42] LABS: Hemoglobin 13.3 g/dL (12.2-16.2)
--- NOTE | 2025-08-29 07:52 | HMH.PHAINT1 ---
Pharmacy Intervention Comments: home medication list verified using list from outpatient pharmacy
[2025-08-29] MEDS: OXYCODONE 10MG EXTENDED RELEASE TAB.ER.12H 10 MG PO (08:19)
--- NOTE | 2025-08-29 10:58 | CA_ITS ---
APPROVED REPORT EXAM: Comprehensive 2D, Doppler, and color-flow Echocardiogram Baggage Checker: Amber Nazario RT(R) Ht: 5 ft 2 in Wt: 117lbs BSA: 1.52 BP: 105/84 mmHg Indications: elevated troponin, nausea, vomiting, diarrhea, hx AFIB. 2D Dimensions Left Atrium 3.85 cm F: 2.7 - 3.8 LVEF (Bergeron's) 65.20 % F: 54 - 74 LVOT 1.71 cm (M/F) 1.5-2.5 LV Volume 81.30 mL F: 46 - 106 LV Volume Index 53.5 mL/m2 F: 29 - 61 LA Volume 33.70 mL LA Volume Index 22.17 mL/m2 (M/F) 16-34 EF AP4 57.50 % EF AP2 70.7 % EF BP 65.2 % GL Strain -21.2 % M-Mode Dimensions RVDd 3.14 cm (0.9-2.6) LVDd 4.50 cm (3.5-5.7) Ao Diam 2.17 cm (2.0-3.7) LVDs 2.91 cm (3.5-5.7) IVSd 1.02 cm (0.6-1.1) PWd 0.98 cm (0.6-1.1) EF (Teich) 64.80% FS 35.30% EDV (Teich) 92.40 mL TAPSE 2.42 (<1.7) ESV (Teich) 32.50 mL LV Diastology E Decel Time 267 (160-240 msec) E/A Ratio 0.9 MED E' 8.0 (>= 7 cm/sec) E'/MED E' Ratio 11.49 (<= 14) LAT E' 7.8 (>= 10 cm/sec) E/LAT E' Ratio 11.78 (<= 14) Mitral Valve MV E Max Bernabe. 92.0 (40-130 cm/s) MV A Velocity 106.0 (40-130 cm/s) E/A Ratio 0.87 MV Decel. Time 267 (160-240 ms) Left Ventricle The left ventricle is normal size. Left ventricular systolic function is normal. The left ventricular ejection fraction is within the normal range. There is increased left ventricular wall thickness. There is normal LV segmental wall motion. Transmitral Doppler flow pattern suggests impaired LV relaxation. LVEF is 55% Right Ventricle The right ventricle is mildly dilated. The right ventricular systolic function is normal. Atria Left atrium is mildly dilated. Right atrium is mildly dilated. There is no color Doppler evidence of interatrial shunt. Aortic Valve The aortic valve opens well. There is no hemodynamically significant aortic valvular stenosis. Trace aortic regurgitation is present. Mitral Valve The mitral valve is normal in structure. No evidence of mitral valve stenosis. Mild mitral regurgitation is present. Tricuspid Valve The tricuspid valve leaflets are thin and pliable. Trace tricuspid regurgitation. There is insufficient TR jet to estimate RVSP. Pulmonic Valve The pulmonary valve is grossly normal in structure. Trace pulmonic valve regurgitation is present. Great Vessels The aortic root is normal in size. IVC is normal in size and collapses >50% with inspiration. Pericardium There is no pericardial effusion. Other Information Study Quality: Fair Conclusion Normal biventricular systolic function. Mild RV dilation. Mild biatrial dilation. Mild MR. Electronically signed by : Keya Davey MD 09/01/2025 17:53:44
[2025-08-29] MEDS: MAGNESIUM SULFATE IN WATER 2 GM/50 ML PIGGYBACK IV ×2 (11:03→13:10)
--- OUTSIDE RECORDS SUMMARY | 2025-08-29 11:24 | XMS_ITS | Encounter Summary ---
Author Organization Healthcare Address [address] [place] [address] Care Team Providers Care Noc Technician Name Role Phone Ronald Gr MD Primary Care Provider [phone] Aniyah Duke LPN Unavailable Unavailab le Encounter Details Date Type Department Care Team ([facility] st Contact Info) Description 05/27/2022 Orders Only External Location [address] [place] [address] Ronald Gr MD [address] [phone] Social History Tobacco Use Types Packs/Day Years [...] documented as of this encounter Care Teams Noc Technician Relationship Specialty Start Date End Date Ronald Gr MD [address] [place] [address] PCP - General 03/01/21 Aniyah Duke LPN VALUE-BASED [place] [address] TCM Nurse 06/10/22 07/10/22 documented as of this encounter
--- OUTSIDE RECORDS SUMMARY | 2025-08-29 11:25 | XMS_ITS | Encounter Summary ---
Author Organization Healthcare Address [address] [place] [address] Care Team Providers Care Continuous Wave Operator Name Role Phone Ronald Gr MD Primary Care Provider [phone] Aniyah Duke LPN Unavailable Unavailab le Encounter Details Date Type Department Care Team (Late st Contact Info) Description 05/29/2022 Orders Only External Location [address] [place] [address] Cayla Faye, CONTAINER CRANE OPERATOR [address] [facility] [address] [facility] [address] [place] [address] Social History Tobacco Use Types Packs/Day Years [...] 12:5 3 PM EDT us Cayla Faye CONTAINER CRANE OPERATOR IMG US PROCEDURES Luanne l Result documented in this encounter Visit Diagnoses Not on filedocumented in this encounter Additional Health Concerns Infection Onset Date Last Indicated Resolved Time C. difficile Rule-Out 06/06/2022 06/06/20222021 7:20 PM EDT Assessment Noted Time A fall risk assessment has been complete d for the patient 12/16/2021 3:35 PM EST documented as of this encounter Care Teams Continuous Wave Operator Relationship Specialty Start Date End Date Ronald Gr MD [address] [place] [address] PCP - General 03/01/21 Aniyah Duke LPN VALUE-BASED [place] [address] TCM Nurse 06/10/22 07/10/22 documented as of this encounter
--- OUTSIDE RECORDS SUMMARY | 2025-08-29 11:25 | XMS_ITS | Encounter Summary ---
Author Organization Healthcare Address [address] [place] [address] Care Team Providers Care Coagulant Dipper Name Role Phone Ronald Gr MD Primary Care Provider [phone] Aniyah Duke LPN Unavailable Unavailab le Encounter Details Date Type Department Care Team ([facility] st Contact Info) Description 05/29/2022 Orders Only External Location [address] [place] [address] Ronald Gr MD [address] [phone] Social History Tobacco Use Types Packs/Day Years [...] documented as of this encounter Care Teams Coagulant Dipper Relationship Specialty Start Date End Date Ronald Gr MD [address] [place] [address] PCP - General 03/01/21 Aniyah Duke LPN VALUE-[employer] [place] [address] TCM Nurse 06/10/22 07/10/22 documented as of this encounter
--- OUTSIDE RECORDS SUMMARY | 2025-08-29 11:25 | XMS_ITS | Encounter Summary ---
Author Organization Healthcare Address [address] [place] [address] Care Team Providers Care Network Contract Manager Name Role Phone Ronald Gr MD Primary Care Provider [phone] Aniyah Duke LPN Unavailable Unavailab le Encounter Details Date Type Department Care Team (Late st Contact Info) Description 06/02/2022 Lab Requisition [facility] [address] [place] [address] Ruth Ann Girard MD [address] [place], [place] [phone] Encounter for general adult medical examination without [...] ORDERABLES Final Result [facility] [address] [place] [address] documented in this encounter Visit Diagnoses Diagnosis Encounter for general adult medical examination without abnormal findings documented in this encounter Additional Health Concerns Infection Onset Date Last Indicated Resolved Time C. difficile Rule-Out 06/06/2022 06/06/20222021 7:20 PM EDT Assessment Noted Time A fall risk assessment has been complete d for the patient 12/16/2021 3:35 PM EST documented as of this encounter Care Teams Network Contract Manager Relationship Specialty Start Date End Date Ronald Gr MD [address] [place] [address] PCP - General 03/01/21 Aniyah Duke LPN VAL[employer] [place] [address] TCM Nurse 06/10/22 07/10/22 documented as of this encounter
--- OUTSIDE RECORDS SUMMARY | 2025-08-29 11:25 | XMS_ITS | Encounter Summary ---
Author Organization Healthcare Address [address] [place] [address] Care Team Providers Care Strategic Account Director Name Role Phone Ronald Gr MD Primary Care Provider [phone] Encounter Details Date Type Department Care Team (Late st Contact Info) Description 11/06/2023 Orders Only External Location [address] [place] [address] Provider, External Social History Tobacco Use Types [...] documented as of this encounter Care Teams Strategic Account Director Relationship Specialty Start Date End Date Ronald Gr MD [address] [place] [address] PCP - General 03/01/21 documented as of this encounter
--- OUTSIDE RECORDS SUMMARY | 2025-08-29 11:25 | XMS_ITS | Clinical Summary ---
Author Organization Healthcare Address [address] [place] [address] Care Team Providers Care Regulatory Affairs Director Name Role Phone Ronald Gr MD Primary Care Provider [phone] Allergies Active Allergy Reactions Criticality Noted Date Comments Acetaminophen Unknown - Patient st ates they do not know rxn details Low 05/30/2022 [place] Cough Low 06/29/2023 Codeine Itching Medium 08/27/2016 [...] colitis 07/05/2022 Atherosclerotic heart diseas e of [place] coronary artery without angina pectoris 06/03/2022 Chronic [...] (05/30/2022): Added automatically from request for surgery [id number] COVID-19 07/15/2021 07/09/2025 Immunizations Immunization Administration Dates [...] 2) 2004 [facility]-Depression Screening 01/18/2025 01/19/2024, 06/19 [id number] Vaccine ( - 2024- season) 2025 10/07/2022, [...] MD fellow Liz Fitch RN nurse [place], gastrointestinal technician Preprocedure A history and physical has [...] of bowel preparation was evaluated using the Carmen Bowel Preparation Scale with scores of: right [...] Antigen Negative Negative 05/30/2022 10:59 AM EDT [facility] Hepatitis C Antibody Positive(A) Negative 05/30/2022 10:59 AM EDT [facility] Comment: This specimen is being sent [...] ORDERABLES Final Resul t [facility] [address] [place] [address] from Last 3 Months or Most Recently Relevant to Health Maintenance Insurance [facility] MEDICARE Advance Directives * Full Code (Latest Code Status on File) Date Activated Date Inactivated Comments 05/29/2022 10:24 PM 06/09/2022 7:33 PM Question Answer Comments Patient has decision-making capacity? Yes Care Teams Regulatory Affairs Director Relationship Specialty Start Date End Date Ronald Gr MD [address] [place] [address] PCP - General 03/01/21
--- OUTSIDE RECORDS SUMMARY | 2025-08-29 11:25 | XMS_ITS | Encounter Summary ---
Author Organization Healthcare Address [address] [place] [address] Care Team Providers Care Greaser Helper Name Role Phone Ronald Gr MD Primary Care Provider [phone] Aniyah Duke LPN Unavailable Unavailab le Encounter Details Date Type Department Care Team ([facility] st Contact Info) Description 05/29/2022 Orders Only External Location [address] [place] [address] Neto Woodson, CONCRETE TILE MACHINE OPERATOR [address] [phone] Social History Tobacco Use Types Packs/Day Years [...] documented as of this encounter Care Teams Greaser Helper Relationship Specialty Start Date End Date Ronald Gr MD [address] [place] [address] PCP - General 03/01/21 Aniyah Duke LPN VALUE-[employer] [place] [address] TCM Nurse 06/10/22 07/10/22 documented as of this encounter
--- NOTE | 2025-08-29 12:10 | EXP.ACUTE.PN ---
Subjective *Date: 08/29/25 *Time: 17:16 Interval history: Feeling better. No longer having nausea or vomiting. Stable on room air. Would like to try something to eat. Medical Exam Vital signs and Labs for Last 24 Hours: Vital Signs Temp Pulse Pulse Resp BP BP Pulse Ox 08/29/25 11:56 98.4 F 60 16 124/47 L 97 08/29/25 09:00 08/29/25 08:00 08/29/25 08:00 70 08/29/25 08:00 98.3 F 67 15 129/50 L 96 08/29/25 06:53 08/29/25 05:00 08/29/25 04:00 98.0 F 16 162/60 H 94 L 08/29/25 04:00 60 08/29/25 03:00 08/29/25 01:00 08/29/25 00:39 65 08/29/25 00:00 98.2 F 61 16 153/61 H 95 08/28/25 23:00 08/28/25 21:42 98.1 F 105 H 16 105/84 L 98 08/28/25 21:13 76 18 169/71 H 94 L 08/28/25 21:08 08/28/25 21:00 08/28/25 20:27 97.5 F L 77 18 182/77 H 08/28/25 20:15 75 95 08/28/25 20:00 182/77 H 08/28/25 20:00 82 96 08/28/25 19:47 67 95 08/28/25 19:47 173/69 H 08/28/25 19:45 64 97 08/28/25 19:30 67 98 08/28/25 19:15 60 97 08/28/25 19:00 61 98 08/28/25 19:00 180/75 H 08/28/25 15:19 97.5 F L 63 16 178/78 H 95 O2 Del Method 08/29/25 11:56 Room Air 08/29/25 09:00 Room Air 08/29/25 08:00 Room Air 08/29/25 08:00 08/29/25 08:00 Room Air 08/29/25 06:53 Room Air 08/29/25 05:00 Room Air 08/29/25 04:00 Room Air 08/29/25 04:00 08/29/25 03:00 Room Air 08/29/25 01:00 Room Air 08/29/25 00:39 08/29/25 00:00 Room Air 08/28/25 23:00 Room Air 08/28/25 21:42 Room Air 08/28/25 21:13 Room Air 08/28/25 21:08 Room Air 08/28/25 21:00 Room Air 08/28/25 20:27 Room Air 08/28/25 20:15 Room Air 08/28/25 20:00 08/28/25 20:00 Room Air 08/28/25 19:47 Room Air 08/28/25 19:47 08/28/25 19:45 Room Air 08/28/25 19:30 Room Air 08/28/25 19:15 Room Air 08/28/25 19:00 Room Air 08/28/25 19:00 08/28/25 15:19 Room Air Intake and Output 08/28/25 08/29/25 08/29/25 23:59 07:59 15:59 Intake Total 1200 / 1200 100 / 100 Output Total 0 / 0 0 / 0 Balance 1200 / 1200 100 / 100 0 / 100 Intake: Intake, Total IV Amount 1200 / 1200 100 / 100 0.9 % Sodium Chloride 1000ML 1, 1000 / 1000 000 ml @ 999 mls/hr IV .Q1H1M ONE Rx#:[id number] Ceftriaxone Sodium 2 gm In 0.9 100 / 100 % Sodium Chloride 100 ml @ 200 mls/hr IV Q24H [facility] Rx#:[id number] Magnesium Sulfate in Water 2 gm 50 / 50 In 50 ml @ 50 mls/hr IV ONCE ONE Rx#:[id number] Magnesium Sulfate in Water 2 gm 50 / 50 In 50 ml @ 50 mls/hr IV ONCE ONE Rx#:[id number] Metronidaz/Sod Chl 500 mg In 100 / 100 100 ml @ 100 mls/hr IV Q12H [facility] Rx#:[id number] Output: Output, Urine Amount 0 / 0 0 / 0 Other: Number of Voids 0 Number of Unmeasured Voids 1 Number of Urine Attends/Diapers 1 Weight 78.2 kg 53.155 kg Patient Weight 08/29/25 23:59 Weight 53.155 kg Laboratory Results - last 24 hr 08/28/25 15:05: Sodium 145, Potassium 3.5, Chloride 102, Carbon Dioxide 25, Anion Gap 21.5 H, BUN 24 H, Creatinine 1.10 H, Estimated Creat Clear 48, Estimated GFR 49 L, Est GFR ( Amer) 59, Glucose 174 H, Calcium 10.8 H, Magnesium < 0.2 L, Total Bilirubin 1.1, AST 46 H, ALT 36, Alkaline Phosphatase 72, Troponin I 0.01, Total Protein 9.6 H D, Albumin 5.4 H, Globulin 4.2 H, Albumin/Globulin Ratio 1.3, Lipase 111 08/28/25 15:21: SARS-CoV-2 (PCR) Not detected, Influenza A Untype (PCR) Not detected, Influenza Type B (PCR) Not detected 08/28/25 17:20: WBC 24.4 H*, RBC 5.77 H, Hgb 15.8, Hct 50.0 H, MCV 86.7, MCH 27.4, MCHC 31.6 L, RDW 14.3, Plt Count 257, MPV 12.8 H, Neut % (Auto) 90.0 H, Lymph % (Auto) 5.9 L, [place] % (Auto) 2.9, Eos % (Auto) 0.0 L, Baso % (Auto) 0.3, Neut # (Auto) 22.0 H, Lymph # (Auto) 1.4, [place] # (Auto) 0.7, Eos # (Auto) 0.0, Baso # (Auto) 0.1, Total Counted 100, Neutrophils % (Manual) 93 H, Lymphocytes % (Manual) 7 L, Platelet Estimate Normal, RBC Morphology Normal, Lactate 2.5 H 08/28/25 17:21: Urine Color Yellow, Urine Appearance Clear, Urine pH 5.5, Ur Specific [place] 1.022, Urine Protein 2+ A, Urine Glucose (UA) Negative, Urine Ketones Negative, Urine Blood 2+ A, Urine Nitrate Negative, Urine Bilirubin Negative, Urine Urobilinogen 0.2, Ur Leukocyte Esterase Negative, Urine RBC 5-10, Urine WBC 10-20, Ur Squamous Epith Cells 20-50, Urine Bacteria 3+, Hyaline Casts 3-5, Urine Mucus 1+ 08/28/25 19:31: Total Creatine Kinase 75, Troponin I 0.03, NT-Pro-B Natriuret Pep 1170 H 08/28/25 21:57: Lactate 1.5, Troponin I 0.04 H 08/29/25 00:48: Magnesium 1.8 D, Troponin I 0.04 H 08/29/25 05:43: WBC 12.2 H D, RBC 4.99, Hgb 13.3 D, Hct 42.8, MCV 85.8, MCH 26.9 L, MCHC 31.3 L, RDW 14.1, Plt Count 191 D, MPV 13.0 H, Neut % (Auto) 84.6 H, Lymph % (Auto) 9.6 L, [place] % (Auto) 5.2, Eos % (Auto) 0.0 L, Baso % (Auto) 0.2, Neut # (Auto) 10.4 H, Lymph # (Auto) 1.2, [place] # (Auto) 0.6, Eos # (Auto) 0.0, Baso # (Auto) 0.0, Sodium 141, Potassium 3.8, Chloride 105, Carbon Dioxide 26, Anion Gap 13.8, BUN 32 H D, Creatinine 1.20 H, Estimated Creat Clear 37, Estimated GFR 44 L, Est GFR ( Amer) 54 L, Glucose 132 H D, Calcium 9.3, Magnesium 1.5 L D, Total Bilirubin 0.6, AST 27 D, ALT 15 D, Alkaline Phosphatase 77, Troponin I 0.03, Total Protein 7.0 D, Albumin 4.2 D, Globulin 2.8, Albumin/Globulin Ratio 1.5 I & O for Labs for Last 24 Hours: Intake & Output 08/26/25 08/27/25 08/28/25 08/29/25 23:59 23:59 23:59 23:59 Intake Total 1200 / 1200 100 / 100 Output Total 0 / 0 Balance 1200 / 1200 100 / 100 Weight 78.2 kg 53.155 kg Constitutional: Present no acute distress, average body habitus, chronically ill appearing and cooperative Respiratory: Present normal respiratory effort; Absent respiratory distress, stridor, wheezes or crackles Cardiac: Present Reg Rate and Rhythm GI: Present normal bowel sounds; Absent tenderness Extremities: Present normal inspection and full ROM Skin: Present intact; Absent erythema Neuro: Present Grossly Intact, alert, awake, oriented x 3 and moves all extremities Assessment and Plan *Assessment and plan (1) Enterocolitis: Status: Acute Category: Medical Code(s): K52.9 - Noninfective gastroenteritis and colitis, unspecified (2) Hypomagnesemia: Status: Acute Category: Medical Code(s): E83.42 - Hypomagnesemia (3) NSTEMI (non-ST elevated myocardial infarction): Status: Acute Category: Medical Code(s): I21.4 - Non-ST elevation (NSTEMI) myocardial infarction (4) Elevated brain natriuretic peptide (BNP) level: Problem Comment: Has history of congestive heart failure. Appears to be stable at this time Status: Acute Category: Medical Code(s): R79.89 - Other specified abnormal findings of blood chemistry (5) Chronic kidney disease, stage 3: Status: Acute Qualifiers: Chronic kidney disease stage 3 subtype: stage 3b (GFR 30-44) Qualified Code(s): N18.32 - Chronic kidney disease, stage 3b Category: Medical Code(s): N18.30 - Chronic kidney disease, stage 3 unspecified (6) HTN (hypertension): Status: Acute Qualifiers: Hypertension type: primary hypertension Qualified Code(s): I10 - Essential (primary) hypertension Category: Medical Code(s): I10 - Essential (primary) hypertension (7) HLD (hyperlipidemia): Status: Acute Qualifiers: Hyperlipidemia type: mixed hyperlipidemia Qualified Code(s): E78.2 - Mixed hyperlipidemia Category: Medical Code(s): E78.5 - Hyperlipidemia, unspecified Plan Patient has been admitted for enterocolitis. Received IV fluids in the ER as well as Rocephin. Will continue IV antibiotics, adding flagyl, and IV fluids for hydration. She does have a mild DONNIE on her chronic kidney disease stage III. Initial EKG did show some ST depression troponin initially negative was 0.04 at the third check. Repeat EKG shows resolution of ST depression suspect this is a type II NSTEMI. Will consult cardiology. Received magnesium replacement in the ER. And electrolyte replacement was ordered. Will repeat labs in the morning. Initial lactate was 2.5 improved to 1.5. BNP is elevated she does have history of congestive heart failure EF was 55% on last echocardiogram. She does not appear to be acutely decompensated. Records show she has history of atrial Fib and is on Eliquis, she states this is why she had a pacemaker placed. Doing better this morning. Improved magnesium. Cardiology evaluating. Problems addressed as follows: Gastroenteritis - Symptoms improving. Continue Zofran as needed every 6 hours IV 4 mg. Will advance diet today due to patient feeling better. - Diarrhea panel if able to obtain today. - White count improved from 24-12, likely demarginalization from nausea and vomiting. Kidney function stable with BUN 32, creatinine 1.2 NSTEMI: CAD - Elevation in troponin, consistent with type II NSTEMI from demand ischemia. Echo shows normal EF with mild MR. No wall motion abnormalities. Plan for outpatient ischemic eval with [facility]. - Discussed case with cardiology, recommend Toprol-XL 12-1/2 mg daily. Continue Eliquis 5 mg twice daily, Lipitor 20 mg nightly, Lasix 40 mg daily. Hypomagnesemia: Improvement in electrolytes. Magnesium 1.5 today. Replace per protocol. Repeat CBC, CMP, magnesium ordered for the morning and repeat magnesium ordered for the afternoon. Depression/mood disorder: Continue Vraylar 1.5 mg daily, Lexapro 20 mg daily, Neuropathy/chronic pain: Continue gabapentin 400 mg 3 times a day; oxycodone 10 mg 3 times a day as needed Continue pantoprazole 40 mg nightly per home regimen Full code Full liquid diet
[2025-08-29] MEDS: APIXABAN 5MG TABLET 5 MG PO ×2 (12:23→21:35)
[2025-08-29] MEDS: ESCITALOPRAM 20MG TABLET 20 MG PO (12:23)
[2025-08-29] MEDS: GABAPENTIN 400MG CAPSULE 400 MG PO ×2 (13:08→21:35)
--- NOTE | 2025-08-29 13:40 | EXP.CARD.CON ---
History of Present Illness History of Present Illness Consult date: 08/29/25 Requesting physician: Hemant Wolfe Consult reason: known to you Chief complaint: Nausea, vomiting and diarrhea History of present illness: This is a 69-year-old white female who presented to the emergency department with 2 days of nausea, vomiting and diarrhea. The patient states that she has not felt well for the past 2 days. She states that she was in bed with intractable nausea, vomiting and diarrhea. She had some mild abdominal discomfort that is generalized. She denied any fever or chills. The patient was picked up by EMS and vomited 3 times and route here. In the emergency department she was given IV fluids, Rocephin, Pepcid and magnesium and did have improvement in her symptoms. She states this morning her nausea, vomiting are so much better. She denies any diarrhea this morning. She denies any chest pain or pressure. She denies any shortness of breath or edema. Patient was found to have enterocolitis and was admitted for fluids and IV antibiotics. She had a slight elevation in her troponin so cardiology was consulted [facility] Disclaimer: The information contained in this section may have been updated after the patient was seen, as this information can be updated by other users. Medical History (Updated 08/29/25 @ 13:50 by Nadiya Landeros APRN) CAD in [place] artery Elevated troponin Wound of right upper extremity Tremor Memory changes Dizziness Skin lesions Sepsis without septic shock Enteritis Urinary tract infection Ground glass opacity present on imaging of lung Hyperkalemia Hyperkalemia Hypomagnesemia Acute kidney injury (nontraumatic) At risk for osteoporosis Anemia Healthcare maintenance Tobacco abuse counseling Left knee pain Neck pain Trouble swallowing Abnormal thyroid ultrasound Abnormal thyroid blood test Rash Abnormal hemoglobin Hypotension Abnormal CT of the abdomen Acute hemorrhoid Anxiety Pacemaker Black stools Sepsis Left foot pain Acquired hammer toes of both feet Acquired hallux valgus of left foot Incurved toenail Neuropathy Callus of foot Primary osteoarthritis of both feet Fatigue Near syncope Symptomatic bradycardia Bradycardia Abdominal pain Ischemic colitis CHF (congestive heart failure) Non-STEMI (non-ST elevated myocardial infarction) Atrial fibrillation with rapid ventricular response Acute renal failure Dehydration Sepsis CKD (chronic kidney disease) Diarrhea Dehydration DONNIE (acute kidney injury) COVID-19 Sinus bradycardia Viral cardiomyopathy Elevated white blood cell count, unspecified Renal insufficiency Takotsubo cardiomyopathy Elevated left ventricular end-diastolic pressure (LVEDP) Gastroenteritis ST elevation DE (STEMI) ADIEL (obstructive sleep apnea) TIA (transient ischemic attack) Facial droop Atypical angina HTN (hypertension) Edema Tobacco dependence syndrome Abnormal EKG COPD (chronic obstructive pulmonary disease) Chest pain Overweight (BMI 25.0-29.9) Trapezius muscle strain Pre-ulcerative calluses Lumbar disc disease with radiculopathy Lumbar foraminal stenosis Lumbar spondylosis Back Pain Dizziness Angina pectoris History of CVA (cerebrovascular accident) Solitary lung nodule Palpitations Dyspnea Tobacco user HLD (hyperlipidemia) HHD (hypertensive heart disease) Mitral valve regurgitation CAD (coronary artery disease) Surgical History Presence of cardiac pacemaker Family History Other No significant family history Social History (Updated 08/29/25 @ 00:10 by Aisha Reyez APRN) Smoking Status: Current every day smoker tobacco type: cigarettes packs per day: 1 pack-years: 30 smoking status start date: 1989 smoked: 35 second hand exposure: Yes alcohol intake: never substance use type: prescription drug current occupational status: disabled Travel in the last 8 weeks?: None household members: family housing: house current occupational exposures/hazards: No caffeine: Yes Have you lived/traveled outside [place] in past 30 days?: No Contact w/someone who lives/traveled outside [place] past 30 days?: No Exposure to someone with infectious disease in past 14 days?: No Do you have a fever (greater than 100.4 F or 38 C)?: No Have you tested positive for COVID-19?: No Exposed to someone with COVID-19 in past 14 days?: No Do you have a sore throat?: No Do you have a cough?: No Do you have any weakness?: No Do you have any diarrhea?: No Are you experiencing any unusual bleeding?: No Do you have any muscle aches/pain?: No Do you have any abdominal pain?: No Are you experiencing loss of taste or smell?: No Review of Systems Review of Systems Review of systems:: pertinent systems reviewed and negative unless documented below Constitutional Constitutional: Reports system reviewed and no additional complaints, except as documented and Reports fatigue Eyes Eyes: Reports system reviewed and no additional complaints, except as documented ENT Ears, Nose, Mouth, and Throat: Reports system reviewed and no additional complaints, except as documented *Cardiovascular Cardiovascular: Reports system reviewed and no additional complaints, except as documented *Respiratory Respiratory: Reports system reviewed and no additional complaints, except as documented *Gastrointestinal Gastrointestinal: Reports system reviewed and no additional complaints, except as documented, Reports loose stools, Reports nausea and Reports vomiting *Genitourinary Genitourinary: Reports system reviewed and no additional complaints, except as documented *Musculoskeletal Musculoskeletal: Reports system reviewed and no additional complaints, except as documented Integumentary/Breasts Skin/Breast: Reports system reviewed and no additional complaints, except as documented *Neurologic Neurologic: Reports system reviewed and no additional complaints, except as documented Psychiatric Psychiatric: Reports system reviewed and no additional complaints, except as documented Endocrine Endocrine: Reports system reviewed and no additional complaints, except as documented and Reports fatigue Hematologic/Lymphatic Hematologic/Lymphatic: Reports system reviewed and no additional complaints, except as documented Allergic/Immunologic Allergic/Immunologic: Reports system reviewed and no additional complaints, except as documented Exam Data for Last 24 hours Vital signs and Labs for Last 24 Hours: Temp Pulse Resp BP Pulse Ox O2 Del Method 98.4 F 60 16 124/47 L 97 Room Air 08/29/25 11:56 08/29/25 11:56 08/29/25 11:56 08/29/25 11:56 08/29/25 11:56 08/29/25 13:00 Laboratory Results - last 24 hr 08/28/25 15:05: Sodium 145, Potassium 3.5, Chloride 102, Carbon Dioxide 25, Anion Gap 21.5 H, BUN 24 H, Creatinine 1.10 H, Estimated Creat Clear 48, Estimated GFR 49 L, Est GFR ( Amer) 59, Glucose 174 H, Calcium 10.8 H, Magnesium < 0.2 L, Total Bilirubin 1.1, AST 46 H, ALT 36, Alkaline Phosphatase 72, Troponin I 0.01, Total Protein 9.6 H D, Albumin 5.4 H, Globulin 4.2 H, Albumin/Globulin Ratio 1.3, Lipase 111 08/28/25 15:21: SARS-CoV-2 (PCR) Not detected, Influenza A Untype (PCR) Not detected, Influenza Type B (PCR) Not detected 08/28/25 17:20: WBC 24.4 H*, RBC 5.77 H, Hgb 15.8, Hct 50.0 H, MCV 86.7, MCH 27.4, MCHC 31.6 L, RDW 14.3, Plt Count 257, MPV 12.8 H, Neut % (Auto) 90.0 H, Lymph % (Auto) 5.9 L, [place] % (Auto) 2.9, Eos % (Auto) 0.0 L, Baso % (Auto) 0.3, Neut # (Auto) 22.0 H, Lymph # (Auto) 1.4, Al[place] # (Auto) 0.7, Eos # (Auto) 0.0, Baso # (Auto) 0.1, Total Counted 100, Neutrophils % (Manual) 93 H, Lymphocytes % (Manual) 7 L, Platelet Estimate Normal, RBC Morphology Normal, Lactate 2.5 H 08/28/25 17:21: Urine Color Yellow, Urine Appearance Clear, Urine pH 5.5, Ur Specific [place] 1.022, Urine Protein 2+ A, Urine Glucose (UA) Negative, Urine Ketones Negative, Urine Blood 2+ A, Urine Nitrate Negative, Urine Bilirubin Negative, Urine Urobilinogen 0.2, Ur Leukocyte Esterase Negative, Urine RBC 5-10, Urine WBC 10-20, Ur Squamous Epith Cells 20-50, Urine Bacteria 3+, Hyaline Casts 3-5, Urine Mucus 1+ 08/28/25 19:31: Total Creatine Kinase 75, Troponin I 0.03, NT-Pro-B Natriuret Pep 1170 H 08/28/25 21:57: Lactate 1.5, Troponin I 0.04 H 08/29/25 00:48: Magnesium 1.8 D, Troponin I 0.04 H 08/29/25 05:43: WBC 12.2 H D, RBC 4.99, Hgb 13.3 D, Hct 42.8, MCV 85.8, MCH 26.9 L, MCHC 31.3 L, RDW 14.1, Plt Count 191 D, MPV 13.0 H, Neut % (Auto) 84.6 H, Lymph % (Auto) 9.6 L, Al[place] % (Auto) 5.2, Eos % (Auto) 0.0 L, Baso % (Auto) 0.2, Neut # (Auto) 10.4 H, Lymph # (Auto) 1.2, Alpine # (Auto) 0.6, Eos # (Auto) 0.0, Baso # (Auto) 0.0, Sodium 141, Potassium 3.8, Chloride 105, Carbon Dioxide 26, Anion Gap 13.8, BUN 32 H D, Creatinine 1.20 H, Estimated Creat Clear 37, Estimated GFR 44 L, Est GFR ( Amer) 54 L, Glucose 132 H D, Calcium 9.3, Magnesium 1.5 L D, Total Bilirubin 0.6, AST 27 D, ALT 15 D, Alkaline Phosphatase 77, Troponin I 0.03, Total Protein 7.0 D, Albumin 4.2 D, Globulin 2.8, Albumin/Globulin Ratio 1.5 I & O for Last 24 hours: Intake & Output 08/26/25 08/27/25 08/28/25 08/29/25 23:59 23:59 23:59 23:59 Intake Total 1200 / 1200 400 / 400 Output Total 0 / 0 Balance 1200 / 1200 400 / 400 Weight 172 lb 6.424 oz 117 lb 3 oz Constitutional Constitutional: no acute distress and average body habitus *Routine HEENT Exam Head: Present normocephalic and atraumatic ENT: Present mucous membranes moist *Routine Neck Exam Neck: Present supple, full ROM and normal carotid upstroke; Absent JVD, carotid bruit or lymphadenopathy *Routine Respiratory Exam Respiratory: Present CTA bilaterally, normal respiratory effort, able to speak in complete sentences and symmetric chest movement *Routine Cardiovascular Exam Cardiovascular: Present RRR, Normal S1 and Normal S2; Absent murmur or gallop *Routine Abdominal Exam Abdominal: Present soft and normoactive bowel sounds; Absent tenderness, distended or organomegaly *Routine Extremities Exam Extremities: Present full ROM, pulses intact and normal capillary refill; Absent cyanosis, clubbing or edema *Routine Skin Exam Skin: Present intact and warm; Absent erythema *Routine Neurological Exam Neurological: Present alert, oriented X3 and CN II-XII intact; Absent sensory deficit or motor deficit Routine Psychiatric Exam Psychiatric: Present normal affect Meds Home Medications and Allergies Home Medications ?Medication ?Instructions ?Recorded ?Confirmed ?Type loperamide 2 mg capsule 2 mg PO Q6H PRN Diarrhea 06/15/25 08/28/25 History ondansetron 4 mg disintegrating 4 mg PO Q12H PRN Nausea And 06/15/25 08/28/25 History tablet Vomiting gabapentin 400 mg capsule 400 mg PO TID 30 days #90 caps 08/04/25 08/28/25 Rx pantoprazole 40 mg tablet,delayed 40 mg PO HS 30 days #30 tabs 08/10/25 08/28/25 Rx release oxycodone 10 mg tablet 10 mg PO TIDP PRN Moderate Pain 08/15/25 08/28/25 Rx (Scale Score 5-6) #90 tabs cariprazine 1.5 mg capsule 1.5 mg PO DAILY 08/28/25 08/28/25 History (Vraylar) alendronate 10 mg tablet 10 mg PO DAILY 08/29/25 08/29/25 History apixaban 5 mg tablet (Eliquis) 5 mg PO BID 08/29/25 08/29/25 History atorvastatin 20 mg tablet 20 mg PO HS 08/29/25 08/29/25 History escitalopram oxalate 20 mg tablet 20 mg PO DAILY 08/29/25 08/29/25 History furosemide 40 mg tablet 40 mg PO DAILY 08/29/25 08/29/25 History loratadine 10 mg tablet 10 mg PO DAILY 08/29/25 08/29/25 History New Prescriptions to Start Prescriptions: Allergies Allergy/AdvReac Type Severity Reaction Status Date / Time acetaminophen (From Allergy Unknown Unknown Verified 08/04/25 13:52 DARVOCET-N) allergy reaction codeine (CODEINE) Allergy Unknown Unknown Verified 08/04/25 13:52 allergy reaction propoxyphene (From Allergy Unknown Unknown Verified 08/04/25 13:52 DARVOCET-N) allergy reaction tomato AdvReac Mild Gastrointestinal Verified 08/04/25 13:52 Upset Assessment and Plan *Assessment and plan (1) Elevated troponin: Status: Acute Category: Medical Code(s): R79.89 - Other specified abnormal findings of blood chemistry (2) CAD in [place] artery: Status: Acute Category: Medical Code(s): I25.10 - Atherosclerotic heart disease of [place] coronary artery without angina pectoris (3) Enterocolitis: Status: Acute Category: Medical Code(s): K52.9 - Noninfective gastroenteritis and colitis, unspecified (4) Leukocytosis: Status: Acute Qualifiers: Leukocytosis type: unspecified Qualified Code(s): D72.829 - Elevated white blood cell count, unspecified Category: Medical Code(s): D72.829 - Elevated white blood cell count, unspecified (5) History of atrial fibrillation: Status: Acute Category: Medical Code(s): Z86.79 - Personal history of other diseases of the circulatory system (6) HTN (hypertension): Status: Acute Qualifiers: Hypertension type: primary hypertension Qualified Code(s): I10 - Essential (primary) hypertension Category: Medical Code(s): I10 - Essential (primary) hypertension (7) HLD (hyperlipidemia): Status: Acute Qualifiers: Hyperlipidemia type: mixed hyperlipidemia Qualified Code(s): E78.2 - Mixed hyperlipidemia Category: Medical Code(s): E78.5 - Hyperlipidemia, unspecified (8) COPD (chronic obstructive pulmonary disease): Status: Acute Qualifiers: COPD type: unspecified COPD Qualified Code(s): J44.9 - Chronic obstructive pulmonary disease, unspecified Category: Medical Code(s): J44.9 - Chronic obstructive pulmonary disease, unspecified (9) PAD (peripheral artery disease): Status: Acute Category: Medical Code(s): I73.9 - Peripheral vascular disease, unspecified Plan Plan: 1. The patient was admitted to the hospital with nausea, vomiting and diarrhea. She is found to have enterocolitis. She has been started on IV antibiotics and IV fluids. Will defer to the hospitalist. 2. The patient did have a slight elevation in her troponin. This is most likely a type II non-STEMI from demand ischemia from her current infection and enterocolitis. 3. Echocardiogram shows normal ejection fraction with mild MR. No wall motion abnormalities. 4. She denies any chest pain or pressure. No plans for invasive left cardiac catheterization at this time. However due to her slightly elevated troponin she would benefit from an outpatient ischemic evaluation with a CCTA once she is discharged from the hospital and recovered from enterocolitis. 5. Her blood pressure is well-controlled. 6. Her LDL goal is less than 55. She is on a statin. Will get a liver and lipid panel in the morning. 7. We do recommend a beta-feliberto for her coronary artery disease and slightly elevated troponin. Start Toprol XL 12.5 mg daily. 8. No further recommendations at this time from a cardiac standpoint. If any other cardiology issues arise throughout the patient's hospitalization, please feel free to contact cardiology again. At discharge she will need to be discharged on the following cardiac medications: Eliquis 5 mg p.o. twice daily, atorvastatin 20 mg p.o. nightly, Lasix 40 mg daily, Toprol XL 12.5 mg daily. Thank you for the opportunity to help participate in the care of this patient. All recommendations and orders are per Dr. Davey.
[2025-08-29] MEDS: METOPROLOL SUCCINATE XL 25MG TABLET 12.5 MG PO (16:04)
[2025-08-29] MEDS: OXYCODONE 5MG IMMEDIATE RELEASE TABLET 10 MG PO ×2 (16:04→22:00)
--- NOTE | 2025-08-29 18:36 | PC.NURSE ---
a/ox4, remains on room air. mag replaced per protocol. tolerating full liquids. no c/o nausea. patient has c/o right shoulder pain, treated per DEC. up to chair for dinner. new IV placed in right forearm due to left AC IV infiltrating. call light within reach. no complaints at this time.
[2025-08-29 18:48] LABS: Magnesium 2.8 mg/dl (1.6-2.3)
[2025-08-29 21:09] LABS: Adenovirus F 40/41, stool Not Detected (NotDetected); Clostridium Difficile A/B, PCR Not Detected (NotDetected); Cyclospora Cayetanesis Not Detected (NotDetected); Plesimonas Shigalloides, PCR Not Detected (NotDetected); Salmonella, PCR Not Detected (NotDetected); Shiga-like toxin E coli Not Detected (NotDetected); Shigella Enterovasive E coli Not Detected (NotDetected); Vibrio, PCR Not Detected (NotDetected); Yersinia Entercolitica, PCR Not Detected (NotDetected)
[2025-08-29] MEDS: PANTOPRAZOLE 40MG TABLET 40 MG PO (21:35)
[2025-08-29] MEDS: ACETAMINOPHEN 325MG TAB 650 MG PO (21:35)
[2025-08-30] VITALS: BP 138/60; PULSE 60; PULSE 61; RESP 18; TEMP 36.4; O2SAT 96
[2025-08-30] MEDS: METRONIDAZ/SOD CHL 500 MG/100 ML PIGGYBACK 100 MG IV (00:52)
[2025-08-30 04:00] VITALS: BP 128/49; PULSE 60; RESP 16; TEMP 36.4; O2SAT 96; BMI 22.8
--- NOTE | 2025-08-30 04:00 | PC.NURSE ---
Patient is alert and oriented x4. She was observed to be resting in bed with eyes closed, respirations even and unlabored on room air, and no apparent distress throughout the majority of the night. Her daughter has remained at bedside. Patient has had complaints of left-sided tooth aches and chronic back pain this shift. Tylenol (no reactions observed, see provider notification intervention for 21:10) and OxyIR were administered per MAR for pain relief; patient reported that the medications have helped with her pain over time this shift. Scheduled medications were administered per MAR as well. No reports of abdominal pain or nausea/vomiting urges were made. Diarrhea panel results from 19:55 were (-); stool consistency runny. Physical assessment performed as appropriately for this shift (see nursing shift biophysical intervention). Gets up with x1 assistance during ambulation. Tolerating a full liquid diet very well. Normal sinus rhythm on telemetry, history of pacemaker placement. At this time, the patient remains resting in bed without any further complaints. No acute changes noted thus far. Call light within reach.
[2025-08-30] MEDS: OXYCODONE 5MG IMMEDIATE RELEASE TABLET 10 MG PO (05:55)
[2025-08-30 06:30] LABS: Hematocrit 35.9 % (37.0-47.0); Hemoglobin 11.7 g/dL (12.2-16.2); Immature Granulocytes % 0.4 %; Mean Corpuscular HGB Conc 32.6 g/dL (31.8-35.4); Mean Corpuscular Hemoglobin 27.7 pg (27.0-31.2); Mean Corpuscular Volume 85.1 fl (81-99); Nucleated Red Blood Cells % 0 %; Platelet Count 163 K/mm3 (142-424); Red Blood Count 4.22 M/mm3 (4.20-5.40); Red Cell Distribution Width-SD 43.4 fL; White Blood Count 10.1 K/mm3 (4.8-10.8)
[2025-08-30 06:44] LABS: Alanine Aminotransferase 14 U/L (12-78); Albumin Level 3.5 g/dl (3.5-5.0); Albumin/Globulin Ratio 1.5 (1.1-1.8); Alkaline Phosphatase 61 U/L (38-126); Anion Gap 8.4 mEq/L (5-15); Aspartate Amino Transferase 25 U/L (14-36); Bilirubin,Total 0.5 mg/dl (0.2-1.3); Blood Urea Nitrogen 25 mg/dl (7-17); Calcium 8.5 mg/dl (8.4-10.2); Carbon Dioxide 25 mmol/L (22.0-30.0); Chloride 105 mmol/L (98-107); Creatinine Clearance Estimated 46 mL/min (50-200); Creatinine,Serum 1.00 mg/dl (0.52-1.04); Estimated Glomerular Filt Rate 55 ml/min (>60); GFR (African American) 66 ML/MIN (>60); Globulin 2.4 g/dL (1.3-3.2); Glucose 104 mg/dl (74-100); Magnesium 2.2 mg/dl (1.6-2.3); Potassium 3.4 mmoL/L (3.5-5.1); Sodium 135 mmol/L (136-145); Total Protein,Serum 5.9 g/dl (6.3-8.2)
[2025-08-30 07:18] LABS: Alanine Aminotransferase 14 U/L (12-78); Albumin Level 3.4 g/dl (3.5-5.0); Alkaline Phosphatase 64 U/L (38-126); Anion Gap 8.6 mEq/L (5-15); Aspartate Amino Transferase 23 U/L (14-36); Bilirubin,Direct 0.2 mg/dl (0.0-0.4); Bilirubin,Indirect 0.4 mg/dL (0.0-0.9); Bilirubin,Total 0.6 mg/dl (0.2-1.3); Bilirubin,Unconjugated 0.4 mg/dL (0.0-1.1); Blood Urea Nitrogen 24 mg/dl (7-17); Calcium 8.7 mg/dl (8.4-10.2); Carbon Dioxide 25 mmol/L (22.0-30.0); Chloride 105 mmol/L (98-107); Cholesterol 110 mg/dl (140-200); Creatinine Clearance Estimated 42 mL/min (50-200); Creatinine,Serum 1.10 mg/dl (0.52-1.04); Estimated Glomerular Filt Rate 49 ml/min (>60); GFR (African American) 59 ML/MIN (>60); Glucose 102 mg/dl (74-100); HDL Cholesterol 43 mg/dl (40-60); Potassium 3.6 mmoL/L (3.5-5.1); Sodium 135 mmol/L (136-145); Total Protein,Serum 5.6 g/dl (6.3-8.2); Triglycerides 79 mg/dl (30-150)
[2025-08-30 08:00] VITALS: BP 146/50; PULSE 60; RESP 18; TEMP 36.6; O2SAT 96
[2025-08-30] MEDS: ESCITALOPRAM 20MG TABLET 20 MG PO (08:10)
[2025-08-30] MEDS: GABAPENTIN 400MG CAPSULE 400 MG PO (08:10)
[2025-08-30] MEDS: METOPROLOL SUCCINATE XL 25MG TABLET 12.5 MG PO (08:10)
[2025-08-30] MEDS: APIXABAN 5MG TABLET 5 MG PO (08:11)
--- NOTE | 2025-08-30 09:37 | EXP.DC.SUM ---
General Admission date:: 08/28/25 Discharge date: 08/30/25 HPI HPI HPI: 69-year-old female patient was brought to the ER after being down for 2 days. Information mostly obtained from medical records and ER record as she is a poor historian. She apparently had been in bed for almost 2 days with intractable nausea vomiting and diarrhea. Complains of mild abdominal pain that is generalized. She denied fever chills or bodyaches. She vomited 3 times in the ambulance on the way in. In the ER she received IV fluids, Rocephin, Pepcid and magnesium as well as Zofran. During my visit she states she is feeling better and is able to rest. Hospital Course Hospital Course Hospital Course: Ms. Edwards is a 69-year-old female who presented with symptoms of enterocolitis. Found to have severe hypomagnesemia. Was admitted for monitoring of cultures, empiric antibiotics, and replacement electrolytes. Showed improvement. Electrolytes normalized. Tolerating p.o. intake. Diarrhea resolving. Meeting criteria to discharge home to continue to convalesce as an outpatient. Problems addressed as follows: Patient has been admitted for enterocolitis. Received IV fluids in the ER as well as Rocephin. Will continue IV antibiotics, adding flagyl, and IV fluids for hydration. She does have a mild DONNIE on her chronic kidney disease stage III. Initial EKG did show some ST depression troponin initially negative was 0.04 at the third check. Repeat EKG shows resolution of ST depression suspect this is a type II NSTEMI. Will consult cardiology. Received magnesium replacement in the ER. And electrolyte replacement was ordered. Will repeat labs in the morning. Initial lactate was 2.5 improved to 1.5. BNP is elevated she does have history of congestive heart failure EF was 55% on last echocardiogram. She does not appear to be acutely decompensated. Records show she has history of atrial Fib and is on Eliquis, she states this is why she had a pacemaker placed. Doing better this morning. Improved magnesium. Cardiology evaluating. Problems addressed as follows: Gastroenteritis -Initially presented with nausea vomiting and diarrhea. Started on empiric Rocephin and Flagyl. Diarrhea showed improvement. Treated with Zofran for nausea. After fluid resuscitation and replacement electrolyte her symptoms showed significant improvement. Able to advance diet. White count initially 24, improved to normal at 10 by day of discharge. Kidney function and electrolytes remained stable. Tolerating p.o. intake. No further diarrhea, was unable to obtain stool panel. Given her improvement and tolerance of p.o. intake with normalization of electrolytes, stable discharge home to continue medications per home regimen. NSTEMI: CAD A-fib Pacemaker in situ - Elevation in troponin, consistent with type II NSTEMI from demand ischemia. Echo shows normal EF with mild MR. No wall motion abnormalities. Plan for outpatient ischemic eval with CCTA. - Discussed case with cardiology, recommend Toprol-XL 12-1/2 mg daily. Continue Eliquis 5 mg twice daily, Lipitor 20 mg nightly, Lasix 40 mg daily. Hypomagnesemia: Improvement in electrolytes. Magnesium of less than 0.2 on arrival. Improved with replacement to 2.2 by day of discharge. Would benefit from repeat CMP and magnesium level in 1 week to monitor stability of electrolytes and kidney function Depression/mood disorder: Continue Vraylar 1.5 mg daily, Lexapro 20 mg daily, Neuropathy/chronic pain: Continue gabapentin 400 mg 3 times a day; oxycodone 10 mg 3 times a day as needed Continue pantoprazole 40 mg nightly per home regimen Total time spent on discharge 34 minutes in counseling, documentation, chart review, and direct care with patient. Exam Data for Last 24 hours Vital signs and Labs for Last 24 Hours: Temp Pulse Resp BP Pulse Ox O2 Del Method 97.9 F 60 18 146/50 H 96 Room Air 08/30/25 08:00 08/30/25 08:00 08/30/25 08:00 08/30/25 08:00 08/30/25 08:00 08/30/25 08:00 Laboratory Results - last 24 hr 08/29/25 18:25: Magnesium 2.8 H D 08/29/25 19:55: Stl C. cayetanensis PCR Not detected, Stool Rotavirus (PCR) Not detected, Stl Adenov F 40/41 PCR Not detected, Stool Astrovirus (PCR) Not detected, Stool Campylobacter PCR Not detected, Stl C.difficile Tox PCR Not detected, Stool Cryptosporidium PCR Not detected, Stl E.coli Shiga Tox PCR Not detected, Stool E coli O157 PCR Not detected, Stl Enterotoxigenic E PCR Not detected, Stool EPEC (PCR) Not detected, Stool EAEC (PCR) Not detected, Stl E. histolytica PCR Not detected, Stool Giardia Lamblia PCR Not detected, Stool Salmonella PCR Not detected, Stool Sapovirus (PCR) Not detected, Stl P. shigelloides PCR Not detected, Stl Shigella/EIEC PCR Not detected, St Y.enterocolitica PCR Not detected, Stool Vibrio (PCR) Not detected, Stl Vibrio cholerae PCR Not detected, Stl Norovirus GI/GII PCR Not detected 08/30/25 05:46: WBC 10.1, RBC 4.22, Hgb 11.7 L, Hct 35.9 L, MCV 85.1, MCH 27.7, MCHC 32.6, RDW 14.0, Plt Count 163, MPV 12.5 H, Neut % (Auto) 50.1, Lymph % (Auto) 38.8, [place] % (Auto) 8.0, Eos % (Auto) 2.1, Baso % (Auto) 0.6, Neut # (Auto) 5.1, Lymph # (Auto) 3.9, [place] # (Auto) 0.8, Eos # (Auto) 0.2, Baso # (Auto) 0.1, Sodium 135 L 08/30/25 05:46: Sodium 135 L, Potassium 3.6 08/30/25 05:46: Potassium 3.4 L, Chloride 105 08/30/25 05:46: Chloride 105, Carbon Dioxide 25 08/30/25 05:46: Carbon Dioxide 25, Anion Gap 8.6 08/30/25 05:46: Anion Gap 8.4, BUN 24 H 08/30/25 05:46: BUN 25 H, Creatinine 1.10 H 08/30/25 05:46: Creatinine 1.00, Estimated Creat Clear 42 08/30/25 05:46: Estimated Creat Clear 46, Estimated GFR 49 L 08/30/25 05:46: Estimated GFR 55 L, Est GFR ( Amer) 59 08/30/25 05:46: Est GFR ( Amer) 66, Glucose 102 H 08/30/25 05:46: Glucose 104 H, Calcium 8.7 08/30/25 05:46: Calcium 8.5, Magnesium 2.2 D, Total Bilirubin 0.6 08/30/25 05:46: Total Bilirubin 0.5, Direct Bilirubin 0.2, Conjugated Bilirubin 0.0, Indirect Bilirubin 0.4, Unconjugated Bilirubin 0.4, AST 23 08/30/25 05:46: AST 25, ALT 14 08/30/25 05:46: ALT 14, Alkaline Phosphatase 64 08/30/25 05:46: Alkaline Phosphatase 61, Total Protein 5.6 L 08/30/25 05:46: Total Protein 5.9 L, Albumin 3.4 L D 08/30/25 05:46: Albumin 3.5, Globulin 2.4, Albumin/Globulin Ratio 1.5, Triglycerides 79, Cholesterol 110 L, LDL Cholesterol Direct 56.54 L, VLDL Cholesterol 16, HDL Cholesterol 43, Cholesterol/HDL Ratio 2.6 I & O for Last 24 hours: Intake & Output 08/27/25 08/28/25 08/29/25 08/30/25 23:59 23:59 23:59 23:59 Intake Total 1200 / 1200 1170 / 1430 360 / 360 Output Total 0 / 0 Balance 1200 / 1200 1170 / 1430 360 / 360 Weight 78.2 kg 53.155 kg 56.2 kg Microbiology Reports for the Last 24 Hours: Microbiology 08/28/25 17:21 Urine,Clean Catch Urine Culture - Final Multiple organisms, suggests contamination. 08/28/25 19:54 Blood Blood Culture - Preliminary NO GROWTH AFTER 24 HOURS 08/28/25 19:54 Blood Blood Culture - Preliminary NO GROWTH AFTER 24 HOURS Constitutional Constitutional: no acute distress, thin, chronically ill appearing and cooperative *Routine HEENT Exam Head: Present normocephalic Eye: Present EOMI and PERRL ENT: Present mucous membranes moist *Routine Neck Exam Neck: Present supple; Absent lymphadenopathy *Routine Respiratory Exam Respiratory: Present CTA bilaterally; Absent rhonchi or wheezes *Routine Cardiovascular Exam Cardiovascular: Present RRR *Routine Abdominal Exam Abdominal: Present soft and normoactive bowel sounds; Absent tenderness *Routine Rectal Exam Patient deferred: visual exam *Routine Exam Patient deferred: external exam *Routine Extremities Exam Extremities: Absent cyanosis, clubbing or edema *Routine Skin Exam Skin: Present intact and warm; Absent rash *Routine Neurological Exam Neurological: Present alert, oriented X3 and moving all extremities; Absent altered mental status Results Data Completed and Pending Labs on day of discharge: Labs from last 24 hours 08/30/25 08/30/25 08/30/25 05:46 05:46 05:46 WBC RBC Hgb Hct MCV MCH MCHC RDW Plt Count MPV Neut % (Auto) Lymph % (Auto) [place] % (Auto) Eos % (Auto) Baso % (Auto) Neut # (Auto) Lymph # (Auto) [place] # (Auto) Eos # (Auto) Baso # (Auto) Sodium Potassium Chloride Carbon Dioxide Anion Gap BUN Creatinine Estimated Creat Clear Estimated GFR Est GFR ( Amer) Glucose Calcium Magnesium Total Bilirubin Direct Bilirubin Conjugated Bilirubin Indirect Bilirubin Unconjugated Bilirubin AST ALT Alkaline Phosphatase 61 Total Protein 5.9 L 5.6 L Albumin 3.5 3.4 L D Globulin 2.4 Albumin/Globulin Ratio 1.5 Triglycerides 79 Cholesterol 110 L LDL Cholesterol Direct 56.54 L VLDL Cholesterol 16 HDL Cholesterol 43 Cholesterol/HDL Ratio 2.6 Stl C. cayetanensis PCR Stool Rotavirus (PCR) Stl Adenov F PCR Stool Astrovirus (PCR) Stool Campylobacter PCR Stl C.difficile Tox PCR Stool Cryptosporidium PCR Stl E.coli Shiga Tox PCR Stool E coli O157 PCR Stl Enterotoxigenic E PCR Stool EPEC (PCR) Stool EAEC (PCR) Stl E. histolytica PCR Stool Giardia Lamblia PCR Stool Salmonella PCR Stool Sapovirus (PCR) Stl P. shigelloides PCR Stl Shigella/EIEC PCR St Y.enterocolitica PCR Stool Vibrio (PCR) Stl Vibrio cholerae PCR Stl Norovirus GI/GII PCR 08/30/25 08/30/25 08/30/25 05:46 05:46 05:46 WBC RBC Hgb Hct MCV MCH MCHC RDW Plt Count MPV Neut % (Auto) Lymph % (Auto) [place] % (Auto) Eos % (Auto) Baso % (Auto) Neut # (Auto) Lymph # (Auto) [place] # (Auto) Eos # (Auto) Baso # (Auto) Sodium Potassium Chloride Carbon Dioxide Anion Gap BUN Creatinine Estimated Creat Clear Estimated GFR Est GFR ( Amer) Glucose Calcium Magnesium Total Bilirubin 0.5 Direct Bilirubin 0.2 Conjugated Bilirubin 0.0 Indirect Bilirubin 0.4 Unconjugated Bilirubin 0.4 AST 25 23 ALT 14 14 Alkaline Phosphatase 64 Total Protein Albumin Globulin Albumin/Globulin Ratio Triglycerides Cholesterol LDL Cholesterol Direct VLDL Cholesterol HDL Cholesterol Cholesterol/HDL Ratio Stl C. cayetanensis PCR Stool Rotavirus (PCR) Stl Adenov F PCR Stool Astrovirus (PCR) Stool Campylobacter PCR Stl C.difficile Tox PCR Stool Cryptosporidium PCR Stl E.coli Shiga Tox PCR Stool E coli O157 PCR Stl Enterotoxigenic E PCR Stool EPEC (PCR) Stool EAEC (PCR) Stl E. histolytica PCR Stool Giardia Lamblia PCR Stool Salmonella PCR Stool Sapovirus (PCR) Stl P. shigelloides PCR Stl Shigella/EIEC PCR St Y.enterocolitica PCR Stool Vibrio (PCR) Stl Vibrio cholerae PCR Stl Norovirus GI/GII PCR 08/30/25 08/30/25 08/30/25 05:46 05:46 05:46 WBC RBC Hgb Hct MCV MCH MCHC RDW Plt Count MPV Neut % (Auto) Lymph % (Auto) [place] % (Auto) Eos % (Auto) Baso % (Auto) Neut # (Auto) Lymph # (Auto) [place] # (Auto) Eos # (Auto) Baso # (Auto) Sodium Potassium Chloride Carbon Dioxide Anion Gap BUN Creatinine Estimated Creat Clear Estimated GFR Est GFR ( Amer) 66 Glucose 104 H 102 H Calcium 8.5 8.7 Magnesium 2.2 D Total Bilirubin 0.6 Direct Bilirubin Conjugated Bilirubin Indirect Bilirubin Unconjugated Bilirubin AST ALT Alkaline Phosphatase Total Protein Albumin Globulin Albumin/Globulin Ratio Triglycerides Cholesterol LDL Cholesterol Direct VLDL Cholesterol HDL Cholesterol Cholesterol/HDL Ratio Stl C. cayetanensis PCR Stool Rotavirus (PCR) Stl Adenov F PCR Stool Astrovirus (PCR) Stool Campylobacter PCR Stl C.difficile Tox PCR Stool Cryptosporidium PCR Stl E.coli Shiga Tox PCR Stool E coli O157 PCR Stl Enterotoxigenic E PCR Stool EPEC (PCR) Stool EAEC (PCR) Stl E. histolytica PCR Stool Giardia Lamblia PCR Stool Salmonella PCR Stool Sapovirus (PCR) Stl P. shigelloides PCR Stl Shigella/EIEC PCR St Y.enterocolitica PCR Stool Vibrio (PCR) Stl Vibrio cholerae PCR Stl Norovirus GI/GII PCR 08/30/25 08/30/25 08/30/25 05:46 05:46 05:46 WBC RBC Hgb Hct MCV MCH MCHC RDW Plt Count MPV Neut % (Auto) Lymph % (Auto) [place] % (Auto) Eos % (Auto) Baso % (Auto) Neut # (Auto) Lymph # (Auto) [place] # (Auto) Eos # (Auto) Baso # (Auto) Sodium Potassium Chloride Carbon Dioxide Anion Gap BUN Creatinine 1.00 Estimated Creat Clear 46 42 Estimated GFR 55 L 49 L Est GFR ( Amer) 59 Glucose Calcium Magnesium Total Bilirubin Direct Bilirubin Conjugated Bilirubin Indirect Bilirubin Unconjugated Bilirubin AST ALT Alkaline Phosphatase Total Protein Albumin Globulin Albumin/Globulin Ratio Triglycerides Cholesterol LDL Cholesterol Direct VLDL Cholesterol HDL Cholesterol Cholesterol/HDL Ratio Stl C. cayetanensis PCR Stool Rotavirus (PCR) Stl Adenov F PCR Stool Astrovirus (PCR) Stool Campylobacter PCR Stl C.difficile Tox PCR Stool Cryptosporidium PCR Stl E.coli Shiga Tox PCR Stool E coli O157 PCR Stl Enterotoxigenic E PCR Stool EPEC (PCR) Stool EAEC (PCR) Stl E. histolytica PCR Stool Giardia Lamblia PCR Stool Salmonella PCR Stool Sapovirus (PCR) Stl P. shigelloides PCR Stl Shigella/EIEC PCR St Y.enterocolitica PCR Stool Vibrio (PCR) Stl Vibrio cholerae PCR Stl Norovirus GI/GII PCR 08/30/25 08/30/25 08/30/25 05:46 05:46 05:46 WBC RBC Hgb Hct MCV MCH MCHC RDW Plt Count MPV Neut % (Auto) Lymph % (Auto) [place] % (Auto) Eos % (Auto) Baso % (Auto) Neut # (Auto) Lymph # (Auto) [place] # (Auto) Eos # (Auto) Baso # (Auto) Sodium Potassium Chloride Carbon Dioxide 25 Anion Gap 8.4 8.6 BUN 25 H 24 H Creatinine 1.10 H Estimated Creat Clear Estimated GFR Est GFR ( Amer) Glucose Calcium Magnesium Total Bilirubin Direct Bilirubin Conjugated Bilirubin Indirect Bilirubin Unconjugated Bilirubin AST ALT Alkaline Phosphatase Total Protein Albumin Globulin Albumin/Globulin Ratio Triglycerides Cholesterol LDL Cholesterol Direct VLDL Cholesterol HDL Cholesterol Cholesterol/HDL Ratio Stl C. cayetanensis PCR Stool Rotavirus (PCR) Stl Adenov F PCR Stool Astrovirus (PCR) Stool Campylobacter PCR Stl C.difficile Tox PCR Stool Cryptosporidium PCR Stl E.coli Shiga Tox PCR Stool E coli O157 PCR Stl Enterotoxigenic E PCR Stool EPEC (PCR) Stool EAEC (PCR) Stl E. histolytica PCR Stool Giardia Lamblia PCR Stool Salmonella PCR Stool Sapovirus (PCR) Stl P. shigelloides PCR Stl Shigella/EIEC PCR St Y.enterocolitica PCR Stool Vibrio (PCR) Stl Vibrio cholerae PCR Stl Norovirus GI/GII PCR 08/30/25 08/30/25 08/30/25 05:46 05:46 05:46 WBC RBC Hgb Hct MCV MCH MCHC RDW Plt Count MPV Neut % (Auto) Lymph % (Auto) [place] % (Auto) Eos % (Auto) Baso % (Auto) Neut # (Auto) Lymph # (Auto) [place] # (Auto) Eos # (Auto) Baso # (Auto) Sodium 135 L Potassium 3.4 L 3.6 Chloride 105 105 Carbon Dioxide 25 Anion Gap BUN Creatinine Estimated Creat Clear Estimated GFR Est GFR ( Amer) Glucose Calcium Magnesium Total Bilirubin Direct Bilirubin Conjugated Bilirubin Indirect Bilirubin Unconjugated Bilirubin AST ALT Alkaline Phosphatase Total Protein Albumin Globulin Albumin/Globulin Ratio Triglycerides Cholesterol LDL Cholesterol Direct VLDL Cholesterol HDL Cholesterol Cholesterol/HDL Ratio Stl C. cayetanensis PCR Stool Rotavirus (PCR) Stl Adenov F 40 PCR Stool Astrovirus (PCR) Stool Campylobacter PCR Stl C.difficile Tox PCR Stool Cryptosporidium PCR Stl E.coli Shiga Tox PCR Stool E coli O157 PCR Stl Enterotoxigenic E PCR Stool EPEC (PCR) Stool EAEC (PCR) Stl E. histolytica PCR Stool Giardia Lamblia PCR Stool Salmonella PCR Stool Sapovirus (PCR) Stl P. shigelloides PCR Stl Shigella/EIEC PCR St Y.enterocolitica PCR Stool Vibrio (PCR) Stl Vibrio cholerae PCR Stl Norovirus GI/GII PCR 08/30/25 08/29/25 08/29/25 05:46 19:55 18:25 WBC 10.1 RBC 4.22 Hgb 11.7 L Hct 35.9 L MCV 85.1 MCH 27.7 MCHC 32.6 RDW 14.0 Plt Count 163 MPV 12.5 H Neut % (Auto) 50.1 Lymph % (Auto) 38.8 [place] % (Auto) 8.0 Eos % (Auto) 2.1 Baso % (Auto) 0.6 Neut # (Auto) 5.1 Lymph # (Auto) 3.9 [place] # (Auto) 0.8 Eos # (Auto) 0.2 Baso # (Auto) 0.1 Sodium 135 L Potassium Chloride Carbon Dioxide Anion Gap BUN Creatinine Estimated Creat Clear Estimated GFR Est GFR ( Amer) Glucose Calcium Magnesium 2.8 H D Total Bilirubin Direct Bilirubin Conjugated Bilirubin Indirect Bilirubin Unconjugated Bilirubin AST ALT Alkaline Phosphatase Total Protein Albumin Globulin Albumin/Globulin Ratio Triglycerides Cholesterol LDL Cholesterol Direct VLDL Cholesterol HDL Cholesterol Cholesterol/HDL Ratio Stl C. cayetanensis PCR Not detected Stool Rotavirus (PCR) Not detected Stl Adenov F 40/41 PCR Not detected Stool Astrovirus (PCR) Not detected Stool Campylobacter PCR Not detected Stl C.difficile Tox PCR Not detected Stool Cryptosporidium PCR Not detected Stl E.coli Shiga Tox PCR Not detected Stool E coli O157 PCR Not detected Stl Enterotoxigenic E PCR Not detected Stool EPEC (PCR) Not detected Stool EAEC (PCR) Not detected Stl E. histolytica PCR Not detected Stool Giardia Lamblia PCR Not detected Stool Salmonella PCR Not detected Stool Sapovirus (PCR) Not detected Stl P. shigelloides PCR Not detected Stl Shigella/EIEC PCR Not detected St Y.enterocolitica PCR Not detected Stool Vibrio (PCR) Not detected Stl Vibrio cholerae PCR Not detected Stl Norovirus GI/GII PCR Not detected Preliminary micro results at discharge 08/28/25 19:54 Blood Culture - Preliminary Blood NO GROWTH AFTER 24 HOURS 08/28/25 19:54 Blood Culture - Preliminary Blood NO GROWTH AFTER 24 HOURS DS: Diagnosis Discharge Diagnosis (1) Enterocolitis: Status: Acute Code(s): K52.9 - Noninfective gastroenteritis and colitis, unspecified (2) Hypomagnesemia: Status: Acute Code(s): E83.42 - Hypomagnesemia (3) NSTEMI (non-ST elevated myocardial infarction): Status: Acute Code(s): I21.4 - Non-ST elevation (NSTEMI) myocardial infarction (4) Elevated brain natriuretic peptide (BNP) level: Status: Acute Code(s): R79.89 - Other specified abnormal findings of blood chemistry Problem details: Has history of congestive heart failure. Appears to be stable at this time (5) Chronic kidney disease, stage 3: Status: Acute Code(s): N18.30 - Chronic kidney disease, stage 3 unspecified Qualifiers: Chronic kidney disease stage 3 subtype: stage 3b (GFR 30-44) Qualified Code(s): N18.32 - Chronic kidney disease, stage 3b (6) HTN (hypertension): Status: Acute Code(s): I10 - Essential (primary) hypertension Qualifiers: Hypertension type: primary hypertension Qualified Code(s): I10 - Essential (primary) hypertension (7) HLD (hyperlipidemia): Status: Acute Code(s): E78.5 - Hyperlipidemia, unspecified Qualifiers: Hyperlipidemia type: mixed hyperlipidemia Qualified Code(s): E78.2 - Mixed hyperlipidemia Meds Home Medications and Allergies Home Medications ?Medication ?Instructions ?Recorded ?Confirmed ?Type loperamide 2 mg capsule 2 mg PO Q6H PRN Diarrhea 06/15/25 08/28/25 History ondansetron 4 mg disintegrating 4 mg PO Q12H PRN Nausea And 06/15/25 08/28/25 History tablet Vomiting gabapentin 400 mg capsule 400 mg PO TID 30 days #90 caps 08/04/25 08/28/25 Rx pantoprazole 40 mg tablet,delayed 40 mg PO HS 30 days #30 tabs 08/10/25 08/28/25 Rx release oxycodone 10 mg tablet 10 mg PO TIDP PRN Moderate Pain 08/15/25 08/28/25 Rx (Scale Score 5-6) #90 tabs cariprazine 1.5 mg capsule 1.5 mg PO DAILY 08/28/25 08/28/25 History (Vraylar) alendronate 10 mg tablet 10 mg PO DAILY 08/29/25 08/29/25 History apixaban 5 mg tablet (Eliquis) 5 mg PO BID 08/29/25 08/29/25 History atorvastatin 20 mg tablet 20 mg PO HS 08/29/25 08/29/25 History escitalopram oxalate 20 mg tablet 20 mg PO DAILY 08/29/25 08/29/25 History furosemide 40 mg tablet 40 mg PO DAILY 08/29/25 08/29/25 History loratadine 10 mg tablet 10 mg PO DAILY 08/29/25 08/29/25 History metoprolol succinate 25 mg 12.5 mg (1/2 x 25 mg) PO DAILY 30 08/30/25 Rx tablet,extended release 24 hr days #15 tabs New Prescriptions to Start Prescriptions: metoprolol succinate Hemant Wolfe Allergies Allergy/AdvReac Type Severity Reaction Status Date / Time acetaminophen (From Allergy Unknown Unknown Verified 08/04/25 13:52 DARVOCET-N) allergy reaction codeine (CODEINE) Allergy Unknown Unknown Verified 08/04/25 13:52 allergy reaction propoxyphene (From Allergy Unknown Unknown Verified 08/04/25 13:52 DARVOCET-N) allergy reaction ibuprofen Allergy Hives Verified 08/29/25 23:45 tomato AdvReac Mild Gastrointestinal Verified 08/04/25 13:52 Upset Discharge Plan Disposition Patient Disposition: Home, Self-Care Condition: Fair Discharge Order Discharge Orders: Discharge Order (Routine); Ordered 08/30/25 Ordered By: Hemant Wolfe Follow up Plan Follow up with: Nadiya Landeros APRN [Nurse Practitioner, Cardiology] - 09/12/25 10:15 am Eileen Gil APRN [Primary Care Provider, Family Practice] - 09/06/25 1:00 pm Prescriptions/Medication Reconciliation: New metoprolol succinate 25 mg Tablet Extended Release 24 Hr 12.5 mg PO DAILY 30 Days Qty: 15 0RF Continued loperamide 2 mg capsule 2 mg PO Q6H PRN (Reason: Diarrhea) Patient Comments: TAKE 1 CAPSULE BY MOUTH EVERY 6 HOURS NEEDED FOR DIARRHEA ondansetron 4 mg tablet,disintegrating 4 mg PO Q12H PRN (Reason: Nausea And Vomiting) Patient Comments: DISSOLVE 1 TABLET ON THE TONGUE 2 TIMES A DAY NEEDED FOR NAUSEA AND VOMITING gabapentin 400 mg capsule 400 mg PO TID 30 Days Qty: 90 1RF pantoprazole 40 mg tablet,delayed release (DR/EC) 40 mg PO HS 30 Days Qty: 30 0RF oxycodone 10 mg tablet 10 mg PO TIDP PRN (Reason: Moderate Pain (Scale Score 5-6)) Qty: 90 0RF Vraylar 1.5 mg capsule 1.5 mg PO DAILY Patient Comments: TAKE 1 CAPSULE BY MOUTH ONCE A DAY furosemide 40 mg tablet 40 mg PO DAILY alendronate 10 mg tablet 10 mg PO DAILY atorvastatin 20 mg tablet 20 mg PO HS loratadine 10 mg tablet 10 mg PO DAILY escitalopram oxalate 20 mg tablet 20 mg PO DAILY Eliquis 5 mg tablet 5 mg PO BID Problem Reconciliation Problems Reviewed?: Yes Patient Discharge Instructions ACTIVITY: Continue current activity DIET: continue same diet Patient Instructions: Acute Kidney Injury Print Language: French Providers Primary Care Provider: Eileen Gil Admit Provider: Akhil Lundy Attending Provider: Akhil Lundy
--- NOTE | 2025-08-31 10:01 | SW/DCPLANNER ---
Spoke with patient on the phone. Patient stated that she is doing good and just taking it easy. Patient stated that she is aware of her upcoming appointments. Patient stated that she was able to last picker her new medicine from [facility]. Patient stated that she has no concerns or questions at this time. Billy Vogt
== END 2025-08-30 10:13 | disposition home or self-care (01) ==
LOC: ER 19:34 → 2ND 20:03
PROVIDERS: Internal Medicine Adolescent Medicine; Nurse Practitioner; Nurse Practitioner Acute Care; Nurse Practitioner Family; Admitting Provider Student in an Organized Health Care Education/Training Program; Emergency Provider Student in an Organized Health Care Education/Training Program; PCP Nurse Practitioner Family; Visit Provider Student in an Organized Health Care Education/Training Program
DX: K52.9 Noninfective gastroenteritis and colitis, unspecified (principal); E83.42 Hypomagnesemia; I21.A1 Myocardial infarction type 2; N17.9 Acute kidney failure, unspecified; I13.0 Hypertensive heart and chronic kidney disease with heart failure and stage 1 through stage 4 chronic kidney disease, or unspecified chronic kidney disease; I50.9 Heart failure, unspecified; I48.91 Unspecified atrial fibrillation; I25.10 Atherosclerotic heart disease of native coronary artery without angina pectoris; F32.A Depression, unspecified; F39 Unspecified mood [affective] disorder; G62.9 Polyneuropathy, unspecified; G89.29 Other chronic pain; E78.2 Mixed hyperlipidemia; F17.210 Nicotine dependence, cigarettes, uncomplicated; N18.32 Chronic kidney disease, stage 3b; I73.9 Peripheral vascular disease, unspecified; Z95.0 Presence of cardiac pacemaker; Z79.899 Other long term (current) drug therapy; Z79.01 Long term (current) use of anticoagulants; Z88.5 Allergy status to narcotic agent; Z88.8 Allergy status to other drugs, medicaments and biological substances; Z91.018 Allergy to other foods
CPT/HCPCS: 36415; 71045; 71250; 74176; 80048; 80053; 80061; 80076; 81001; 82550; 83605; 83690; 83735; 83880; 84484; 85007; 85025; 85027; 87040; 87086; 87507; 87636; 93005; 93306; 99285; G0378; J0696; J1308; J1836; J2405; J3475; J7030; J7120